=== PATIENT | male | born 1945 | race Caucasian/White ===

== ENCOUNTER → 2017-02-07 | Outpatient (CLI) | payer MEDICARE ==
[2017-02-07 08:12] LABS: Basophils # (A) 0.1 k/uL (0-0.2); Basophils % (A) 1 %; CHCM 34.9; Eosinophils # (A) 0.4 k/uL (0-0.7); Eosinophils % (A) 6 %; HCT 47.6 % (39.0-53.0); HDW 2.73; HGB 16.3 gm/dL (13.0-17.5); Luc # (Auto) 0.18; Luc % (Auto) 3; Lymphocytes # (A) 2.1 k/uL (1.0-4.8); Lymphocytes % (A) 30 %; MCH 34.4 pg (25.0-35.0); MCHC 34.2 g/dL (31.0-37.0); MCV 100.6 fL (80.0-100.0); Mean Platelet Volume 7.8; Monocytes # (A) 0.4 k/uL (0-1.0); Monocytes % (A) 5 %; Neutrophils # (A) 3.8 k/uL (1.3-7.7); Neutrophils % (A) 55 %; RBC 4.73 m/uL (4.30-5.90); RDW 13.4 % (11.5-15.5); WBC 6.9 k/uL (3.8-10.6); WBC (Perox) 7.09
[2017-02-07 11:09] LABS: ALT 39 U/L (21-72); AST 29 U/L (17-59); Alkaline Phosphatase 77 U/L (38-126); Anion Gap 12 mmol/L; Blood Urea Nitrogen 17 mg/dL (9-20); Calcium 9.7 mg/dL (8.4-10.2); Carbon Dioxide 24 mmol/L (22-30); Chloride 109 mmol/L (98-107); Cholesterol 161 mg/dL (<200); Glucose 115 mg/dL (74-99); HDL Cholesterol 53 mg/dL (40-60); Non-African American GFR(MDRD) >60 (>60 ml/min/1.73 sqM); Potassium 4.4 mmol/L (3.5-5.1); Sodium 145 mmol/L (137-145); Total Bilirubin 0.9 mg/dL (0.2-1.3); Total Protein 7.1 g/dL (6.3-8.2); Triglycerides 104 mg/dL (<150)
[2017-02-07 13:28] LABS: Hemoglobin A1C 5.9 % (4.2-6.1)
== END | disposition home or self-care (01) ==
LOC: LABWHC1 07:30
PROVIDERS: ATTEND Internal Medicine Geriatric Medicine
DX: E78.00 Pure hypercholesterolemia, unspecified (principal); I10 Essential (primary) hypertension; N40.0 Benign prostatic hyperplasia without lower urinary tract symptoms; R79.89 Other specified abnormal findings of blood chemistry
CPT/HCPCS: 36415; 80053; 80061; 83036; 84153; 84439; 84443; 85025

== ENCOUNTER → 2017-05-14 | Outpatient (CLI) | payer MEDICARE ==
[2017-05-14 07:17] LABS: EKG EKG PERFORMED
[2017-05-14 07:39] LABS: Appearance,Urine Clear (Clear); Bilirubin,Urine Negative (Negative); Glucose,Urine (UA) Negative (Negative); Ketones,Urine Negative (Negative); Leukocyte Esterase,Urine Negative (Negative); Nitrite,Urine Negative (Negative); PH, Urine 6.5 (5.0-8.0); Protein,Urine Negative (Negative); Specific Gravity,Urine 1.015 (1.001-1.035); UA Billing (MACRO vs. MICRO) CHEM; Urobilinogen,Urine <2.0 mg/dL (<2.0)
[2017-05-14 07:56] LABS: CH 34.3; CHCM 34.4; HCT 48.2 % (39.0-53.0); HDW 2.78; MCH 33.3 pg (25.0-35.0); MCHC 33.3 g/dL (31.0-37.0); MCV 100.2 fL (80.0-100.0); Mean Platelet Volume 8.2; RBC 4.81 m/uL (4.30-5.90); RDW 13.7 % (11.5-15.5); WBC 7.9 k/uL (3.8-10.6)
[2017-05-14 07:58] LABS: INR 1.1 (<1.2); Partial Thromboplastin Time 24.7 sec (22.0-30.0); Prothrombin Time 11.1 sec (9.0-12.0)
[2017-05-14 08:10] LABS: ALT 34 U/L (21-72); AST 25 U/L (17-59); Alkaline Phosphatase 65 U/L (38-126); Anion Gap 9 mmol/L; Blood Urea Nitrogen 20 mg/dL (9-20); Calcium 9.7 mg/dL (8.4-10.2); Carbon Dioxide 28 mmol/L (22-30); Chloride 105 mmol/L (98-107); Glucose 123 mg/dL (74-99); Non-African American GFR(MDRD) >60 (>60 ml/min/1.73 sqM); Potassium 5.2 mmol/L (3.5-5.1); Sodium 142 mmol/L (137-145); Total Bilirubin 0.9 mg/dL (0.2-1.3); Total Protein 7.5 g/dL (6.3-8.2)
== END | disposition home or self-care (01) ==
LOC: LABPAT 07:04
PROVIDERS: ATTEND Orthopaedic Surgery
DX: Z01.810 Encounter for preprocedural cardiovascular examination (principal); Z01.812 Encounter for preprocedural laboratory examination
CPT/HCPCS: 80053; 81003; 85027; 85610; 85730; 87070; 93005

== ENCOUNTER 2017-05-28 08:00 | Inpatient (IN) | payer MEDICARE ==
[2017-05-16 10:10] VITALS: BMI 36.2
[~2017-05-28 08:00] MED LIST: ACETAMINOPHEN TAB 500 MG TAB PO ONE; DEXAMETHASONE SOD PHOSPHATE 10 MG/ML 1 ML VIAL IV ONE; HYDROmorphone 0.5 MG/0.5 ML SYRINGE IVP PRN; MELOXICAM 7.5 MG TAB PO ONE; MIDAZOLAM 2 MG/2 ML VIAL IV PRN; ONDANSETRON 4 MG/2 ML VIAL IVP ONE; TRANEXAMIC ACID 1,000 MG in SODIUM CHLORIDE 0.9% 100 ML IVPB ONE; ceFAZolin 2 GM in SODIUM CHLORIDE 0.9% 100 ML IVPB ONE
[2017-05-28] MEDS ORDERED: LACTATED RINGERS 1,000 ML IV ONE ×2 (14:57→16:59)
--- NOTE | 2017-05-28 15:29 | P.ONQ ---
Anesthesiology Proc Note - PNB - Peripheral Nerve Block Performed Left Adductor Canal Infusion Time Out Performed: Yes Procedure Start Time: 15:11 Procedure Stop Time: 15:22 Indication: Acute Post-Operative Pain, Requested by physician Sedation Type: Sedate with meaningful contact maintained Preparation: Sterile Dressing Position: Supine Catheter: Indwelling Needle Types: On-Q Needle Size: 100mm (4") Needle Gauge: 21 Technique: Ultrasound Injectate: 0.5% Ropivacaine (see comment for volume) (ropi.5% 9cc) Blood Aspirated: No Pain Paresthesia on Injection Noted: No Resistance on Injection: Normal Events: Uneventful and Well Tolerated
[2017-05-28] MEDS ORDERED: METOPROLOL TARTRATE 5 MG/5 ML VIAL IVP ONE (15:30)
[2017-05-28] MEDS ORDERED: TRANEXAMIC ACID 1,000 MG/10 ML VIAL ONE (15:30)
[2017-05-28] MEDS ORDERED: ceFAZolin 3,000 MG in SODIUM CHLORIDE 0.9% IRRIGATIO 3,000 ML IRRIGATION ONE (15:30)
[2017-05-28] MEDS ORDERED: MIDAZOLAM 2 MG/2 ML VIAL ONE (15:30)
[2017-05-28] MEDS ORDERED: SODIUM CHLORIDE 0.9% 100 ML BAG ONE (15:30)
[2017-05-28] MEDS ORDERED: fentaNYL (PF) 50 MCG/ML 2 ML AMP ONE (15:30)
[2017-05-28] MEDS ORDERED: PROPOFOL 10 MG/ML 20 ML VIAL IV ONE (15:30)
[2017-05-28] MEDS: ROPIVACAINE 246.25 MG, EPINEPHrine 0.5 MG, KETOROLAC 30 MG, cloNIDine HCL/PF 80 MCG, WA... MISCELLANE ONE ×10 (16:05→16:35)
--- NOTE | 2017-05-28 16:59 | P.OP ---
Date of Procedure: 05/28/17 Preoperative Diagnosis: Severe osteoarthritis left knee Postoperative Diagnosis: Severe osteoarthritis left knee Procedure(s) Performed: Left total knee arthroplasty Implants: Corona [employer] Nephew Oxinium femoral component size 7, left Corona [employer] Nephew Mayra II left nonporous tibial baseplate size 6 Corona [employer] Nephew size 9 mm Legion XLPE high flexion articular insert, size 5-6 Corona [employer]hew Mayra II resurfacing patellar component, 35 mm All components were cemented using Ammon bone cement.. The articulation is ceramic on polyethylene. Anesthesia: spinal Surgeon: Samuel Hough [employer] Box Shop Supervisor #1: Tamanna Bloom Estimated Blood Loss (ml): 50 Pathology: other (Bone and cartilage) Condition: stable Disposition: PACU Indications for Procedure: After failure of conservative treatment we discussed the surgical and nonsurgical treatment options at length. Patient wishes to proceed with a total knee arthroplasty. Complications specific to this procedure were discussed at length, including but not limited to infection, bleeding, stiffness , and nerve injury. Patient is aware of all these complications and informed consent was obtained Operative Findings: The operative findings are consistent with severe osteoarthritis of the left knee Description of Procedure: Patient was seen in the preoperative area consent was reviewed and operative site was marked with a skin marker. An adductor canal pain catheter was placed by anesthesia in the preoperative area. Patient was then brought to the operating room and given preoperative antibiotics intravenously. A spinal anesthetic was administered by the anesthesia department. A tourniquet was placed on the upper thigh and the lower extremity was prepped and draped in usual sterile fashion. A gram of transexamic acid was given. A universal timeout was then performed which confirmed the patient's name, surgical site, ALLERGIES, and consent. The lower extremity was then exsanguinated and tourniquet was inflated to 250 mmHg. A standard and anterior midline approach to the knee was performed. The skin and subcutaneous tissue was dissected down to the patellar tendon. A medial parapatellar arthrotomy was then performed. The knee was then extended, the patellar was everted, and the knee was again flexed. Anterior horns of both menisci were excised, and a release was performed to the posterior medial aspect of the knee. On gross visual inspection, there was complete loss of articular cartilage in the medial and patellofemoral joint spaces. There was also significant cartilage damage in the lateral compartment. There were multiple periarticular osteophytes which were then removed with a Ronguer. The femoral canal was then opened with the appropriate drill, and the intramedullary femoral cutting guide was then placed and set for 4 of valgus. The distal femoral cutting block was then pinned in place, and the distal femur was then cut. The cutting block was then removed and the cut was checked for flatness. Next, the sizing guide was then placed and set for 3 external rotation based off of the epicondylar axis and Whitesides line. After the femur was sized, the appropriate 4-in-1 cutting block was then pinned in place. The anterior condyles were cut without notching. The posterior and chamfer cuts were performed while protecting the collateral ligaments. The cutting block was then removed, and the femoral canal was plugged with autologous bone. Attention was then directed to the tibia. The remaining ACL was removed with a Ronguer, and the tibia was then gently subluxed forward with a large bent knee retractor. Any remaining menisci was excised. The posterior lateral corner was cauterized in order to cauterize the lateral geniculate artery. The extra medullary tibial cutting guide was then placed, set for the appropriate rotation , slope, and depth of resection. The proximal tibia cutting guide was then pinned in place. Proximal tibia was then cut and sized. Next trials were then placed with the appropriate-sized insert. The knee was able to fully extend and flex to 130 and was stable throughout all range of motion. The knee was then extended, patella everted. Patella was then measured, and then using an osteotomy guide, the patella was cut at the appropriate level. The patella was then measured and drilled and the patella trial was then placed. The knee was then taken through range of motion with the patella trial and the patella tracked normally. The knee was then extended patella trial was then removed and the patella was everted. Knee was then flexed and lug holes were drilled through the femoral trial and the femoral trial was then removed. The tibial was then exposed, and the tibial broach guide was then pinned in place after it was set for the appropriate rotation to allow for the most coverage without overhang. The tibia was then reamed and broached. The cut surfaces of bone were then irrigated with pulsatile lavage. The posterior structures were injected with the ropivacaine solution. The knee was also irrigated with Irrisept solution. The components were then opened, the cement was mixed, and the components were then cemented in place. The cement was allowed to harden with the knee in full extension. While the cement was hardening, the remaining soft tissues were then injected with a ropivacaine solution, which consisted of 246.25 mg of ropivacaine, 0.5 mg of epinephrine, 30 mg of Toradol, 80 g of clonidine, and 48.45 mL of sterile water, for a total of 100 mL of fluid injected. After the cemented hardened. The tourniquet was released, and hemostasis was obtained. A second gram of transexamic acid was given. The knee was again irrigated. The knee was again taken through range of motion and found to be stable throughout all range of motion of 0-130 , and the patella tracked normally. The fascia was then closed with #2 strata fix suture. The subcutaneous tissue was closed with 3-0 Vicryl and 3-0 strata fix. Dermabond tape was used for the skin and placed with the knee in flexion. The patient was placed in a sterile dressing. Patient was then transferred to recovery room in stable condition. The volunteer services assistant DAVIS Mitchell was required due the complexity surgery and the need for a skilled surgical scrub tech. She assisted in positioning, draping, retraction, and closure of the wound.
[2017-05-28] MEDS ORDERED: MAGNESIUM HYDROXIDE 2,400 MG/10 ML CUP PO PRN (17:25)
[2017-05-28] MEDS ORDERED: BISACODYL 10 MG SUPP RECTAL PRN (17:25)
[2017-05-28] MEDS ORDERED: NA PHOS,M-B/NA PHOS,DI-BA 133 ML ENEMA RECTAL PRN (17:25)
[2017-05-28] MEDS ORDERED: HYDROmorphone 0.5 MG/0.5 ML SYRINGE IVP PRN ×3 (17:25)
[2017-05-28] MEDS ORDERED: NALOXONE 0.4 MG/ML 1 ML VIAL IV PRN (17:25)
[2017-05-28] MEDS ORDERED: DIAZEPAM 5 MG TAB PO PRN ×2 (17:25)
[2017-05-28] MEDS ORDERED: ROPIVACAINE 1,100 MG, SODIUM CHLORIDE 0.9% 330 ML MISCELLANE PRN ×2 (17:34)
--- NOTE | 2017-05-28 17:55 | XR ---
EXAMINATION TYPE: XR knee limited LT DATE OF EXAM: 05/28/2017 CLINICAL HISTORY: Left knee pain and arthritis status post total knee replacement. TECHNIQUE: Portable AP and crosstable lateral views of the left knee are obtained immediately postop eratively. COMPARISON: None FINDINGS: Metallic hardware from total left knee arthroplasty is seen and appears satisfactory in al ignment and position. There is evidence of recent surgery with diffuse subcutaneous gas and soft tis dave swelling noted. IMPRESSION: METALLIC HARDWARE FROM TOTAL LEFT KNEE ARTHROPLASTY IS SATISFACTORY IN ALIGNMENT.
[2017-05-28] MEDS: HYDROcodone/APAP 5-325MG 1 EACH TAB PO PRN (20:27)
[2017-05-28] MEDS: LACTATED RINGERS 1,000 ML IV SCH (21:43)
[2017-05-28] MEDS: ASPIRIN 325 MG TAB PO SCH (21:44)
[2017-05-28] MEDS: SENNOSIDES-DOCUSATE SODIUM 1 EACH TAB PO SCH (21:44)
[2017-05-28] MEDS: SODIUM CHLORIDE 0.9% 1,000 ML IV SCH (21:48)
[2017-05-28] MEDS: ceFAZolin 2 GM in SODIUM CHLORIDE 0.9% 100 ML IVPB SCH (23:59)
[2017-05-29] MEDS: HYDROcodone/APAP 5-325MG 1 EACH TAB PO PRN ×4 (02:34→23:26)
[2017-05-29] MEDS: LACTATED RINGERS 1,000 ML IV SCH (05:21)
[2017-05-29 06:59] LABS: Basophils % (A) 0 %; CH 34.3; CHCM 33.8; Eosinophils % (A) 0 %; HCT 41.9 % (39.0-53.0); HDW 2.69; HGB 13.6 gm/dL (13.0-17.5); Luc # (Auto) 0.05; Luc % (Auto) 0; Lymphocytes # (A) 1.2 k/uL (1.0-4.8); Lymphocytes % (A) 8 %; MCH 33.1 pg (25.0-35.0); MCHC 32.5 g/dL (31.0-37.0); MCV 101.8 fL (80.0-100.0); Macrocytosis Slight; Mean Platelet Volume 8.2; Monocytes # (A) 0.6 k/uL (0-1.0); Monocytes % (A) 4 %; Neutrophils % (A) 87 %; RBC 4.11 m/uL (4.30-5.90); RDW 13.4 % (11.5-15.5); WBC 14.9 k/uL (3.8-10.6); WBC (Perox) 14.44
--- NOTE | 2017-05-29 07:04 | P.PN ---
Progress Note - Text . Postoperative day # 1 status post total knee arthroplasty, adductor canal catheter placed for postoperative analgesia, currently at ropivacaine 0.2% 8 mL per hour and continuous infusion, catheter site local. There is no erythema , and there is no tenderness, visual analogue scale is 3-4/10, patient using oral pain medication for breakthrough pain. Assessment and plan= Acute postoperative pain, adductor canal catheter for pain control, pain is well controlled we'll continue the same management.
[2017-05-29] MEDS: PANTOPRAZOLE 40 MG TABLET PO SCH (07:40)
[2017-05-29] MEDS ORDERED: MELOXICAM 7.5 MG TAB PO SCH (09:00)
[2017-05-29] MEDS ORDERED: DILTIAZEM CD 300 MG CAP.ER.24H PO SCH (09:00)
--- NOTE | 2017-05-29 09:00 | P.PN ---
Subjective Progress Note Date: 05/29/17 Principal diagnosis: Status post left total knee arthroplasty This is a 72-year-old male who is status post left total knee arthroplasty. This is postoperative day #1. She was seen and evaluated at bedside with Dr. Samuel Hough. Patient states he has not been up and walking with physical therapy yet. Patient states his pain is under control. Patient denies any dizziness, numbness, weakness or tingling. Objective - Vital Signs Vital signs: Vital Signs Temp 97.5 F L 05/29/17 07:13 Pulse 79 05/29/17 07:13 Resp 15 05/29/17 07:13 BP 131/79 05/29/17 07:13 Pulse Ox 95 05/29/17 07:13 Intake & Output 05/28/17 05/29/17 05/29/17 18:59 06:59 18:59 Intake Total 1551 780 Output Total 50 540 Balance 1501 240 Weight 117.934 kg Intake: IV 1551 780 Sodium Chloride 0.9% 1, 780 000 ml @ 65 mls/hr IV . [id number] [facility] Rx#:[id number] Output: Urine 540 Estimated Blood Loss 50 - Exam Vital signs are stable. Patient is in no acute distress and is alert and oriented 3. Calf is soft and nontender. Dressing is clean, dry, and intact. Neurovascular status intact. Patient has full foot and ankle motion. - Labs CBC & Chem 7: 05/29/17 06:25 05/28/17 14:50 Labs: Abnormal Lab Results - Last 24 Hours (Table) 05/29/17 Range/Units 06:25 WBC 14.9 H (3.8-10.6) k/uL RBC 4.11 L (4.30-5.90) m/uL MCV 101.8 H (80.0-100.0) fL Neutrophils # 13.0 H (1.3-7.7) k/uL Assessment and Plan (1) Primary osteoarthritis of left knee Status: Acute (2) S/P total knee arthroplasty Status: Acute Plan: #1 Continue with routine postoperative care. #2 Anticoagulation with aspirin. #3 Physical therapy and CPM today. #4 Appreciate input from medicine. #5 Anticipate discharge home with home care likely tomorrow.
[2017-05-29] MEDS: ATENOLOL 50 MG TAB PO SCH (09:20)
[2017-05-29] MEDS: ASPIRIN 325 MG TAB PO SCH ×2 (09:21→21:13)
--- NOTE | 2017-05-29 09:56 | ECHOF ---
Referral Reason:Atrial fibrillation MEASUREMENTS -------- HEIGHT: 182.9 cm WEIGHT: 117.9 kg BP: 116/72 RVIDd: 3.4 cm (< 3.3) IVSd: 1.5 cm (0.6 - 1.1) LVIDd: 5.0 cm (3.9 - 5.3) LVPWd: 1.7 cm (0.6 - 1.1) IVSs: 2.1 cm LVIDs: 2.1 cm LVPWs: 2.4 cm Ao Diam: 4.1 cm (2.0 - 3.7) AV Cusp: 1.4 cm (1.5 - 2.6) LA Diam: 4.4 cm (2.7 - 3.8) MV EXCURSION: 22.646 mm (> 18.000) MV EF SLOPE: 130 mm/s (70 - 150) EPSS: 0.6 cm RAP: 5.00 mmHg RVSP: 19.40 mmHg FINDINGS -------- Atrial fibrillation. This was a technically good study. The left ventricular size is normal. There is moderate concentric left ventricular hypertrophy. Overall left ventricular systolic function is normal with, an EF between 55 - 60 %. The right ventricle is mildly enlarged. The left atrium is normal in size. The right atrium is normal in size. Aortic valve is trileaflet and is mildly thickened. There is mild aortic valve sclerosis. The mitral valve leaflets are mildly thickened. There is trace mitral regurgitation. Mild tricuspid regurgitation present. The right ventricular systolic pressure, as measured by Doppler, is 19.40mmHg. Pulmonic valve appears structurally normal. The aortic root size is normal. The pericardium is normal. CONCLUSIONS -------- 1. Atrial fibrillation. 2. There is mild aortic valve sclerosis. 3. The mitral valve leaflets are mildly thickened. 4. There is trace mitral regurgitation. 5. Mild tricuspid regurgitation present. 6. The right ventricular systolic pressure, as measured by Doppler, is 19.40mmHg. 7. Pulmonic valve appears structurally normal. 8. The aortic root size is normal. 9. The pericardium is normal. 10. This was a technically good study. 11. The left ventricular size is normal. 12. There is moderate concentric left ventricular hypertrophy. 13. Overall left ventricular systolic function is normal with, an EF between 55 - 60 %. 14. The right ventricle is mildly enlarged. 15. The left atrium is normal in size. 16. The right atrium is normal in size. 17. Aortic valve is trileaflet and is mildly thickened. BALLAST INSPECTOR: Cesilia Perez RDCS
[2017-05-29] MEDS: ceFAZolin 2 GM in SODIUM CHLORIDE 0.9% 100 ML IVPB SCH (10:30)
[2017-05-29] MEDS: APIXABAN 5 MG TAB PO SCH ×2 (10:47→21:13)
[2017-05-29] MEDS: LORATADINE 10 MG TAB PO SCH (10:47)
[2017-05-29] MEDS ORDERED: MULTIVITAMINS, THERA 1 EACH TAB PO SCH (12:00)
--- NOTE | 2017-05-29 13:00 | P.CRDCN ---
History of Present Illness Consult date: 05/29/17 History of present illness: This is a 72-year-old male past medical history significant for hypertension. Patient states he follows regularly with his primary care doctor Dr. Rice. He is prescribed atenolol 100 mg daily and Cardizem 300 mg daily. It is his understanding these medications are prescribed for hypertension. We are asked to see the patient in consultation to evaluate new onset atrial fibrillation. The patient underwent left total knee arthroplasty yesterday. EKG reveals atrial fibrillation with controlled ventricular response. He denies chest pain, shortness of breath, dizziness, palpitations, nausea, vomiting or diaphoresis. He denies history of CAD, arrhythmia or [place]. Hemoglobin 13.6, potassium 4.6. BUN/Cr from 05/14/2017 20/0.99. Patient states he is a daily drinker but denies falls. He states he does not drink to excess but he does drink 4-5 beers per day. Review of Systems Extensive review of systems performed, negative except mentioned in HPI. Past Medical History Past Medical History: Cancer, GERD/Reflux, Hypertension, Osteoarthritis (OA) Additional Past Medical History / Comment(s): hemorrhoids, hx skin cancer History of Any Multi-Drug Resistant Organisms: None Reported Past Surgical History: Appendectomy, Joint Replacement, Tonsillectomy Additional Past Surgical History / Comment(s): gus hip replacements, Rt knee replacement, gus capral tunnel Past Anesthesia/Blood Transfusion Reactions: No Reported Reaction Additional Past Anesthesia/Blood Transfusion Reaction / Comment(s): never had a blood transfusion Past Psychological History: No Psychological Hx Reported Smoking Status: Former smoker Past Alcohol Use History: Daily Additional Past Alcohol Use History / Comment(s): quit smoking 1988, smoked for 20 yrs , 1 PPD Past Drug Use History: None Reported - Past Family History Brother(s) Family Medical History: Cancer Additional Family Medical History / Comment(s): pancreatic cancer Medications and Allergies Home Medications Medication Instructions Recorded Confirmed Type Aspirin 81 mg PO DAILY 01/20/14 05/28/17 History Atenolol 100 mg PO DAILY 01/20/14 05/28/17 History Diltiazem Cd [Cardizem CD] 300 mg PO DAILY 01/20/14 05/28/17 History Loratadine [Claritin] 10 mg PO DAILY 01/20/14 05/28/17 History Omeprazole [PriLOSEC] 20 mg PO AC-BRKFST 01/20/14 05/28/17 History HYDROcodone/APAP 5-325MG [Madison 1 tab PO Q6HR PRN #30 tab 09/16/15 05/28/17 Rx 5-325] Ibuprofen [Motrin] 800 mg PO TID PRN 05/16/17 05/28/17 History Multivitamins, Thera [Multivitamin 1 tab PO DAILY 05/16/17 05/28/17 History (formulary)] Apixaban [Eliquis] 5 mg PO BID #60 tab 05/29/17 Rx Allergies Allergy/AdvReac Type Severity Reaction Status Date / Time No Known Allergies Allergy Verified 05/16/17 09:58 Physical Exam Vitals: Vital Signs Temp Pulse Pulse Pulse Resp BP BP 05/29/17 07:13 97.5 F L 79 15 05/29/17 04:37 97.6 F 73 16 05/29/17 04:00 16 05/29/17 00:23 98.1 F 73 16 128/71 05/29/17 00:00 16 05/28/17 20:50 94 123/76 05/28/17 20:35 106 H 119/72 05/28/17 20:20 88 131/74 05/28/17 20:05 92 129/77 05/28/17 20:00 16 05/28/17 19:50 97 127/80 05/28/17 19:35 88 117/77 05/28/17 19:20 93 113/68 05/28/17 19:05 93 123/61 05/28/17 18:50 97.9 F 92 16 118/73 05/28/17 18:34 86 16 125/73 05/28/17 18:20 85 16 119/76 05/28/17 18:05 100 16 120/78 05/28/17 17:50 86 16 121/64 05/28/17 17:38 97 16 123/66 05/28/17 17:23 97.4 F L 91 16 122/71 05/28/17 15:25 80 16 05/28/17 14:35 97.1 F L 82 16 146/84 BP Pulse Ox 05/29/17 07:13 131/79 95 05/29/17 04:37 116/72 95 05/29/17 04:00 05/29/17 00:23 95 05/29/17 00:00 05/28/17 20:50 05/28/17 20:35 05/28/17 20:20 94 L 05/28/17 20:05 94 L 05/28/17 20:00 05/28/17 19:50 94 L 05/28/17 19:35 95 05/28/17 19:20 94 L 05/28/17 19:05 94 L 05/28/17 18:50 94 L 05/28/17 18:34 96 05/28/17 18:20 94 L 05/28/17 18:05 94 L 05/28/17 17:50 94 L 05/28/17 17:38 94 L 05/28/17 17:23 96 05/28/17 15:25 97 05/28/17 14:35 97 Intake and Output 05/28/17 05/29/17 05/29/17 22:59 06:59 14:59 Intake Total 1611 520 Output Total 270 320 320 Balance 1341 200 -320 Intake: IV 1611 520 Sodium Chloride 0.9% 1, 260 520 000 ml @ 65 mls/hr IV . [id number] [facility] Rx#:[id number] Output: Urine 220 320 320 Estimated Blood Loss 50 Other: Weight 117.934 kg 117.934 kg Patient Weight 05/30/17 06:59 Weight 117.934 kg GENERAL: Well-appearing, well-nourished and in no acute distress. NECK: Supple without JVD or thyromegaly. LUNGS: Breath sounds clear to auscultation bilaterally. Respiration equal and unlabored. No wheezes, rales or rhonchi. HEART: Irregular rate and rhythm without murmurs, rubs or gallops. S1 and S2 heard. EXTREMITIES: Normal range of motion, no edema. No clubbing or cyanosis. Peripheral pulses intact and strong. Left knee wrapped. Results 05/29/17 06:25 05/28/17 14:50 CBC 05/29/17 Range/Units 06:25 WBC 14.9 H (3.8-10.6) k/uL RBC 4.11 L (4.30-5.90) m/uL Hgb 13.6 (13.0-17.5) gm/dL Hct 41.9 (39.0-53.0) % Plt Count 197 (150-450) k/uL Comprehensive Metabolic Panel 05/28/17 Range/Units 14:50 Potassium 4.6 (3.5-5.1) mmol/L Current Medications Generic Name Dose Route Start Last Admin Trade Name Freq PRN Reason Stop Dose Admin Hydrocodone Bitart/Acetaminophen 1 each 05/28/17 17:25 05/29/17 07:40 Madison 5-325 PO 1 each Q6HR PRN Administration Pain Scale 1 to 5 Hydrocodone Bitart/Acetaminophen 2 each 05/28/17 17:25 05/29/17 02:34 Madison 5-325 PO 2 each Q6HR PRN Administration Pain Scale 6 to 10 Apixaban 5 mg 05/29/17 10:15 05/29/17 10:47 Eliquis PO 5 mg BID [facility] Administration Aspirin 325 mg 05/28/17 21:00 05/29/17 09:21 Aspirin PO 325 mg BID [facility] Administration Atenolol 100 mg 05/29/17 09:00 05/29/17 09:20 Tenormin PO 100 mg DAILY [facility] Administration Bisacodyl 10 mg 05/28/17 17:25 Dulcolax RECTAL DAILY PRN Constipation Ropivacaine 1,100 mg/ Sodium 0 mg 05/28/17 17:34 05/28/17 18:10 Chloride 330 ml MISCELLANE 1,100 mg Q2H PRN Administration Breakthrough Pain Diazepam 2.5 mg 05/28/17 17:25 Valium PO Q8HR PRN Mild Spasms Diazepam 5 mg 05/28/17 17:25 Valium PO Q8HR PRN Moderate to Severe Spasms Diltiazem HCl 300 mg 05/30/17 09:00 Cardizem Cd PO DAILY [facility] Hydromorphone HCl 0.125 mg 05/28/17 17:25 Dilaudid Syringe IVP Q3HR PRN Pain Scale 1 to 3 Hydromorphone HCl 0.25 mg 05/28/17 17:25 Dilaudid Syringe IVP Q3HR PRN Pain Scale 4 to 6 Hydromorphone HCl 0.5 mg 05/28/17 17:25 Dilaudid Syringe IVP Q3HR PRN Pain Scale 7 to 10 Hydroxyzine Pamoate 25 mg 05/28/17 17:25 Vistaril PO Q4HR PRN Nausea, Anxiety, Pain Control Lactated Ringer's 1,000 mls @ 20 mls/hr 05/28/17 05:26 05/29/17 05:21 Lactated Ringers IV Not Given .Q24H [facility] Sodium Chloride 1,000 mls @ 65 mls/hr 05/28/17 17:30 05/28/17 21:48 Saline 0.9% IV 65 mls/hr .[id number] [facility] Administration Loratadine 10 mg 05/29/17 09:00 05/29/17 10:47 Claritin PO 10 mg DAILY [facility] Administration Magnesium Hydroxide 2,400 mg 05/28/17 17:25 Milk Of Magnesia PO DAILY PRN Constipation Multivitamins 1 each 05/29/17 12:00 Theragran PO DAILY@1200 [facility] Naloxone HCl 0.2 mg 05/28/17 17:25 Narcan IV Q2M PRN Opioid Reversal Pantoprazole Sodium 40 mg 05/29/17 07:30 05/29/17 07:40 Protonix PO 40 mg AC-BRKFST [facility] Administration Senna/Docusate Sodium 2 each 05/28/17 21:00 05/28/17 21:44 Senokot-S PO 2 each HS [facility] Administration Sodium Biphosphate/Sodium Phosphate 133 ml 05/28/17 17:25 Fleet Adult RECTAL DAILY PRN Constipation Intake and Output 05/28/17 05/29/17 05/29/17 22:59 06:59 14:59 Intake Total 1611 520 Output Total 270 320 320 Balance 1341 200 -320 Intake: IV 1611 520 Sodium Chloride 0.9% 1, 260 520 000 ml @ 65 mls/hr IV . [id number] [facility] Rx#:[id number] Output: Urine 220 320 320 Estimated Blood Loss 50 Other: Weight 117.934 kg 117.934 kg Patient Weight 05/30/17 06:59 Weight 117.934 kg 05/29/17 06:25 05/28/17 14:50 Assessment and Plan Plan: ASSESSMENT 1. New onset atrial fibrillation with controlled ventricular response 2. Essential hypertension 3. Postoperative day #1 left total knee arthroplasty PLAN CHADS-VASC score 2 with creatinine clearance 114 mL/m. We will initiate Eliquis 5 mg twice a day. Continue atenolol and cardizem as previously ordered for rate control. Coverage has been verified and is reasonable for him to afford. He should follow up with Dr. Ashford in 2-4 weeks. Risks vs benefits of intermediate anticoagulation has been discussed with the patient and he is agreeable to begin therapy. He has been advised to decrease alcohol intake and avoid NSAIDS. Nurse Practitioner note has been reviewed, I agree with a documented findings and plan of care. Patient was seen and examined.
[2017-05-29] MEDS ORDERED: RIVAROXABAN 10 MG TAB PO SCH (17:30)
[2017-05-29] MEDS: SODIUM CHLORIDE 0.9% 1,000 ML IV SCH (21:11)
[2017-05-29] MEDS: SENNOSIDES-DOCUSATE SODIUM 1 EACH TAB PO SCH (21:13)
[2017-05-29] MEDS: hydrOXYzine PAMOATE 25 MG CAP PO PRN (23:26)
[2017-05-30] MEDS: SODIUM CHLORIDE 0.9% 1,000 ML IV SCH (00:39)
[2017-05-30 00:52] VITALS: RESP 16
[2017-05-30] MEDS: LACTATED RINGERS 1,000 ML IV SCH (04:28)
[2017-05-30] MEDS: HYDROcodone/APAP 5-325MG 1 EACH TAB PO PRN (05:42)
[2017-05-30] MEDS: hydrOXYzine PAMOATE 25 MG CAP PO PRN (05:42)
[2017-05-30 07:37] VITALS: BP 127/82; PULSE 87; TEMP 97.4
[2017-05-30] MEDS: ATENOLOL 50 MG TAB PO SCH (08:12)
[2017-05-30] MEDS: PANTOPRAZOLE 40 MG TABLET PO SCH (08:12)
[2017-05-30] MEDS: APIXABAN 5 MG TAB PO SCH (08:12)
[2017-05-30] MEDS: ASPIRIN 325 MG TAB PO SCH (08:13)
[2017-05-30] MEDS: LORATADINE 10 MG TAB PO SCH (08:13)
[2017-05-30] MEDS ORDERED: DILTIAZEM CD 300 MG CAP.ER.24H PO SCH (09:00)
--- NOTE | 2017-05-30 09:07 | P.DS ---
Providers Date of admission: 05/28/17 13:03 Expected date of discharge: 05/30/17 Attending physician: Samuel Hough Consults: 05/28/17 17:25 Consult Physician Routine Consulting Provider: Alejandro Lee Consult Reason/Comments: medical management Do you want consulting provider notified?: Yes Primary care physician: Chris Rice - Discharge Diagnosis(es) (1) Primary osteoarthritis of left knee Current Visit: Yes Status: Acute (2) S/P total knee arthroplasty Current Visit: Yes Status: Acute Hospital Course: This is a 72-year-old male with known history of degenerative arthritis of the left knee. The patient presents for evaluation. After discussion and consideration patient elects to proceed with total knee arthroplasty. The patient is seen preoperatively by Dr. Hough and cleared for surgery. Patient is admitted to [facility] on 05/28/2017 for total knee arthroplasty. The procedures performed without complication or sequelae. The patient is doing well postoperatively. Labs and vital signs are stable on day of discharge. During patient's hospital stay he developed new onset atrial fibrillation. Cardiology was consulted and patient was started on Eliquis. Patient will follow-up with cardiology as an outpatient. On day of discharge patient's knee incision is healing well. There is minimal erythema. There is no drainage noted at this time. There is minimal soft tissue swelling to the knee. Patient has full foot and ankle motion without difficulty or pain. Neurovascular status to the left lower extremity is intact. Patient is discharged home in good condition. Please see med rec for accurate list of home medications. Plan - Discharge Summary New Discharge Prescriptions: New Apixaban [Eliquis] 5 mg PO BID #60 tab HYDROcodone/APAP 5-325MG [[place] 5-325] 1 - 2 tab PO Q4-6H PRN #90 tab PRN Reason: Pain Sennosides-Docusate Sodium [Senokot-S] 1 tab PO BID #60 tablet No Action Omeprazole [PriLOSEC] 20 mg PO AC-BRKFST Loratadine [Claritin] 10 mg PO DAILY Diltiazem Cd [Cardizem CD] 300 mg PO DAILY Atenolol 100 mg PO DAILY Aspirin 81 mg PO DAILY HYDROcodone/APAP 5-325MG [[place] 5-325] 1 tab PO Q6HR PRN #30 tab PRN Reason: Pain Multivitamins, Thera [Multivitamin (formulary)] 1 tab PO DAILY Ibuprofen [Motrin] 800 mg PO TID PRN PRN Reason: Pain Discharge Medication List Aspirin 81 mg PO DAILY 01/20/14 [History] Atenolol 100 mg PO DAILY 01/20/14 [History] Diltiazem Cd [Cardizem CD] 300 mg PO DAILY 01/20/14 [History] Loratadine [Claritin] 10 mg PO DAILY 01/20/14 [History] Omeprazole [PriLOSEC] 20 mg PO AC-BRKFST 01/20/14 [History] HYDROcodone/APAP 5-325MG [[place] 5-325] 1 tab PO Q6HR PRN #30 tab 09/16/15 [Rx] Ibuprofen [Motrin] 800 mg PO TID PRN 05/16/17 [History] Multivitamins, Thera [Multivitamin (formulary)] 1 tab PO DAILY 05/16/17 [History ] Apixaban [Eliquis] 5 mg PO BID #60 tab 05/29/17 [Rx] HYDROcodone/APAP 5-325MG [[place] 5-325] 1 - 2 tab PO Q4-6H PRN #90 tab 05/30/17 [ Rx] Sennosides-Docusate Sodium [Senokot-S] 1 tab PO BID #60 tablet 05/30/17 [Rx] Follow up Appointment(s)/Referral(s): José Manuel Ashford MD [STAFF PHYSICIAN] - 06/20/17 4:30 pm [facility] Visiting Nurse, [NON-STAFF] - Samuel Hough DO [Doctor of Osteopathic Medicine] - 2 Weeks Ambulatory/Diagnostic Orders: Continuous Passive Motion (CPM) Machine [DME.AMB1] Time Frame: 2 Weeks, Location : Determined By Patient Activity/Diet/Wound Care/Special Instructions: Weightbearing as tolerated with a walker CPM 5-6h daily Leave dressing intact. May be removed by home care nurse in 7 days. May shower with dressing on. [facility] with questions or concerns [phone] Discharge Disposition: HOME WITH HOME HEALTH SERVICES
[2017-05-30] MEDS ORDERED: LACTATED RINGERS 1,000 ML IV SCH (11:45)
--- NOTE | 2017-05-30 12:48 | P.PN ---
Subjective Progress Note Date: 05/30/17 Mr. Francois is a 72-year-old male with past medical history significant for hypertension. We are following with him for new onset atrial fibrillation s/o left knee total arthroplasty. Yesterday he was started on Eliquis 5 mg PO daily. Telemetry tracings indicate he is still in atrial fibrillation with controlled ventricular response. He denies chest pain, shortness of breath, dizziness, palpitations and has had no s/s of bleeding since starting anticoagulation. Objective - Vital Signs Vital signs: Vital Signs Temp 97.4 F L 05/30/17 07:22 Pulse 87 05/30/17 08:00 Resp 16 05/30/17 08:00 BP 127/82 05/30/17 07:22 Pulse Ox 96 05/30/17 07:22 Intake & Output 05/29/17 05/30/17 05/30/17 18:59 06:59 18:59 Intake Total 200 Output Total 640 1200 Balance -640 -1000 Weight 117.934 kg Intake: Oral 200 Output: Urine 640 1200 Other: Voiding Method Toilet Toilet Urinal Urinal # Voids 3 - Exam GENERAL: Well-appearing, well-nourished and in no acute distress. NECK: Supple without JVD or thyromegaly. LUNGS: Breath sounds clear to auscultation bilaterally. Respiration equal and unlabored. No wheezes, rales or rhonchi. HEART: Irregular rate and rhythm without murmurs, rubs or gallops. S1 and S2 heard. EXTREMITIES: Normal range of motion, no edema. No clubbing or cyanosis. Peripheral pulses intact and strong. - Labs CBC & Chem 7: 05/29/17 06:25 05/28/17 14:50 Assessment and Plan Plan: ASSESSMENT 1. New onset atrial fibrillation with controlled ventricular response 2. Essential hypertension 3. Postoperative day #2 left total knee arthroplasty PLAN Continue with Eliquis 5 mg PO BID. Follow up appointment with Dr. Ashford 06/20 at 1630. Thank you. Nurse Practitioner note has been reviewed, I agree with a documented findings and plan of care. Patient was seen and examined.
== END 2017-05-30 11:05 | disposition home health service (06) | DRG 470 ==
LOC: 2ORMAIN 13:03 → 3SUR 18:11
PROVIDERS: ADMIT Orthopaedic Surgery; ATTEND Orthopaedic Surgery
PROC: 0SRD0J9 Replacement of Left Knee Joint with Synthetic Substitute, Cemented, Open Approach (ICD-10-PCS; principal; 2017-05-28 15:50)
DX: M17.12 Unilateral primary osteoarthritis, left knee (principal); I48.91 Unspecified atrial fibrillation; I10 Essential (primary) hypertension; G89.18 Other acute postprocedural pain; Z96.651 Presence of right artificial knee joint; Z96.643 Presence of artificial hip joint, bilateral; K21.9 Gastro-esophageal reflux disease without esophagitis; Z79.01 Long term (current) use of anticoagulants; Z79.82 Long term (current) use of aspirin; Z79.899 Other long term (current) drug therapy; Z80.0 Family history of malignant neoplasm of digestive organs; Z85.828 Personal history of other malignant neoplasm of skin; Z87.891 Personal history of nicotine dependence
CPT/HCPCS: 84132; 85025; 88300; 93005; 93306

== ENCOUNTER → 2017-06-07 | Outpatient (CLI) | payer MEDICARE ==
--- NOTE | 2017-06-07 16:59 | US ---
EXAMINATION TYPE: US venous doppler duplex LE LT DATE OF EXAM: 06/07/2017 3:03 PM COMPARISON: NONE CLINICAL HISTORY: I82.402 Acute Embolism And Thrombosis. Left knee replacement 05/28/17, pain left le g SIDE PERFORMED: left TECHNIQUE: The lower extremity deep venous system is examined utilizing real time linear array sonog waqas with graded compression, doppler sonography and color-flow sonography. VESSELS IMAGED: External Iliac Vein (EIV) Common Femoral Vein Deep Femoral Vein Greater Saphenous Vein * Femoral Vein Popliteal Vein Small Saphenous Vein * Proximal Calf Veins (* superficial vessels) Left Leg: No evidence of DVT IMPRESSION: Negative exam. No evidence of deep venous thrombosis in the left leg.
== END | disposition home or self-care (01) ==
LOC: RADUSWWP 14:17
PROVIDERS: ATTEND Orthopaedic Surgery
DX: I82.402 Acute embolism and thrombosis of unspecified deep veins of left lower extremity (principal)

== ENCOUNTER 2017-07-04 10:46 | Inpatient (IN) | payer MEDICARE ==
--- NOTE | 2017-07-04 11:32 | ED ---
GI Bleed HPI - General Chief complaint: GI Bleed Stated complaint: AFib/post knee surgery Time Seen by Provider: 07/04/17 11:15 Source: patient, RN notes reviewed Mode of arrival: wheelchair Limitations: no limitations - History of Present Illness Initial comments: This is a 72-year-old male with a history of A. octavio who is on L Aquinas who states her past 3-4 days she's had black stools he's now complains some nonspecific abdominal queasiness he appears pale he was seen in the office today and had heme-positive black stools. He denies any fevers chills sweats nausea no prior history of GI bleed did just have a left knee replacement done about a month ago. The A. fib is new as of the month ago surgery MD complaint: melena - Related Data Home Medications Medication Instructions Recorded Confirmed Atenolol 100 mg PO DAILY 01/20/14 07/04/17 Diltiazem Cd [Cardizem CD] 300 mg PO DAILY 01/20/14 07/04/17 Omeprazole [PriLOSEC] 20 mg PO AC-BRKFST 01/20/14 07/04/17 Multivitamins, Thera [Multivitamin 1 tab PO DAILY 05/16/17 07/04/17 (formulary)] HYDROcodone/APAP 5-325MG [[place] 1 - 2 tab PO Q4H PRN 07/04/17 07/04/17 5-325] Previous Rx's Medication Instructions Recorded Apixaban [Eliquis] 5 mg PO BID #60 tab 05/29/17 Allergies Allergy/AdvReac Type Severity Reaction Status Date / Time No Known Allergies Allergy Verified 07/04/17 11:13 Review of Systems ROS Statement: Those systems with pertinent positive or pertinent negative responses have been documented in the HPI. ROS Other: All systems not noted in ROS Statement are negative. Past Medical History Past Medical History: Cancer, GERD/Reflux, Hypertension, Osteoarthritis (OA) Additional Past Medical History / Comment(s): hemorrhoids, hx skin cancer History of Any Multi-Drug Resistant Organisms: None Reported Past Surgical History: Appendectomy, Joint Replacement, Tonsillectomy Additional Past Surgical History / Comment(s): both hips, knee replacements Past Anesthesia/Blood Transfusion Reactions: No Reported Reaction Additional Past Anesthesia/Blood Transfusion Reaction / Comment(s): never had a blood transfusion Past Psychological History: No Psychological Hx Reported Smoking Status: Former smoker Past Alcohol Use History: Occasional Past Drug Use History: None Reported - Past Family History Brother(s) Family Medical History: Cancer Additional Family Medical History / Comment(s): pancreatic cancer General Exam - General Exam Comments Initial Comments: This is a well-developed well-nourished awake alert oriented times 3 male Limitations: no limitations General appearance: alert, in no apparent distress Head exam: Present: atraumatic, normocephalic, normal inspection Eye exam: Present: normal appearance, PERRL, EOMI. Absent: scleral icterus, conjunctival injection, periorbital swelling ENT exam: Present: normal exam, mucous membranes moist Neck exam: Present: normal inspection. Absent: tenderness, meningismus, lymphadenopathy Respiratory exam: Present: normal lung sounds bilaterally. Absent: respiratory distress, wheezes, rales, rhonchi, stridor Cardiovascular Exam: Present: tachycardia, irregular rhythm. Absent: systolic murmur, diastolic murmur, rubs, gallop, clicks GI/Abdominal exam: Present: soft, normal bowel sounds. Absent: distended, tenderness, guarding, rebound, rigid Rectal exam: Present: deferred Extremities exam: Present: normal inspection, full ROM, normal capillary refill. Absent: tenderness, pedal edema, joint swelling, calf tenderness Back exam: Present: normal inspection Neurological exam: Present: alert, oriented X3, CN II-XII intact Psychiatric exam: Present: normal affect, normal mood Skin exam: Present: warm, dry, intact, pallor. Absent: rash Course Vital Signs 07/04/17 07/04/17 07/04/17 10:55 11:10 11:40 Temperature 98.0 F Pulse Rate 110 H 70 70 Respiratory 20 18 18 Rate Blood Pressure 122/77 140/83 135/79 O2 Sat by Pulse 99 100 100 Oximetry 07/04/17 12:34 Temperature Pulse Rate 91 Respiratory 15 Rate Blood Pressure 92/63 O2 Sat by Pulse 100 Oximetry Medical Decision Making - Medical Decision Making Patient will be admitted. I did discuss case Dr. Gee. GI will be consulted patient currently does not have a surgeon his has retired he is good with city call being consulted. - Lab Data Result diagrams: 07/04/17 11:27 07/04/17 11:27 Lab Results 07/04/17 07/04/17 07/04/17 Range/Units 11:27 11:27 11:27 WBC 8.8 (3.8-10.6) k/uL RBC 3.46 L (4.30-5.90) m/uL Hgb 10.9 L (13.0-17.5) gm/dL Hct 34.2 L (39.0-53.0) % MCV 98.7 (80.0-100.0) fL MCH 31.4 (25.0-35.0) pg MCHC 31.8 (31.0-37.0) g/dL RDW 12.9 (11.5-15.5) % Plt Count 254 (150-450) k/uL Neutrophils % 70 % Lymphocytes % 23 % Monocytes % 5 % Eosinophils % 1 % Basophils % 1 % Neutrophils # 6.1 (1.3-7.7) k/uL Lymphocytes # 2.0 (1.0-4.8) k/uL Monocytes # 0.4 (0-1.0) k/uL Eosinophils # 0.1 (0-0.7) k/uL Basophils # 0.1 (0-0.2) k/uL PT (9.0-12.0) sec INR (<1.2) APTT (22.0-30.0) sec Sodium 140 (137-145) mmol/L Potassium 4.9 (3.5-5.1) mmol/L Chloride 106 (98-107) mmol/L Carbon Dioxide 22 (22-30) mmol/L Anion Gap 12 mmol/L BUN 23 H (9-20) mg/dL Creatinine 0.88 (0.66-1.25) mg/dL Est GFR (MDRD) Af Amer >60 (>60 ml/min/1.73 sqM) Est GFR (MDRD) Non-Af >60 (>60 ml/min/1.73 sqM) Glucose 134 H (74-99) mg/dL Calcium 9.8 (8.4-10.2) mg/dL Magnesium 2.3 (1.6-2.3) mg/dL Total Bilirubin 0.4 (0.2-1.3) mg/dL AST 24 (17-59) U/L ALT 35 (21-72) U/L Alkaline Phosphatase 81 (38-126) U/L Total Creatine Kinase 33 L (55-170) U/L CK-MB (CK-2) 0.8 (0.0-2.4) ng/mL CK-MB (CK-2) Rel Index 2.4 Troponin I <0.012 (0.000-0.034) ng/mL Total Protein 7.2 (6.3-8.2) g/dL Albumin 4.0 (3.5-5.0) g/dL Blood Type Blood Type Recheck Antibody Screen Spec Expiration Date 07/04/17 07/04/17 Range/Units 11:27 11:27 WBC (3.8-10.6) k/uL RBC (4.30-5.90) m/uL Hgb (13.0-17.5) gm/dL Hct (39.0-53.0) % MCV (80.0-100.0) fL MCH (25.0-35.0) pg MCHC (31.0-37.0) g/dL RDW (11.5-15.5) % Plt Count (150-450) k/uL Neutrophils % % Lymphocytes % % Monocytes % % Eosinophils % % Basophils % % Neutrophils # (1.3-7.7) k/uL Lymphocytes # (1.0-4.8) k/uL Monocytes # (0-1.0) k/uL Eosinophils # (0-0.7) k/uL Basophils # (0-0.2) k/uL PT 11.2 (9.0-12.0) sec INR 1.1 (<1.2) APTT 23.3 (22.0-30.0) sec Sodium (137-145) mmol/L Potassium (3.5-5.1) mmol/L Chloride (98-107) mmol/L Carbon Dioxide (22-30) mmol/L Anion Gap mmol/L BUN (9-20) mg/dL Creatinine (0.66-1.25) mg/dL Est GFR (MDRD) Af Amer (>60 ml/min/1.73 sqM) Est GFR (MDRD) Non-Af (>60 ml/min/1.73 sqM) Glucose (74-99) mg/dL Calcium (8.4-10.2) mg/dL Magnesium (1.6-2.3) mg/dL Total Bilirubin (0.2-1.3) mg/dL AST (17-59) U/L ALT (21-72) U/L Alkaline Phosphatase (38-126) U/L Total Creatine Kinase (55-170) U/L CK-MB (CK-2) (0.0-2.4) ng/mL CK-MB (CK-2) Rel Index Troponin I (0.000-0.034) ng/mL Total Protein (6.3-8.2) g/dL Albumin (3.5-5.0) g/dL Blood Type A Positive Blood Type Recheck A Pos Antibody Screen NEGATIVE Spec Expiration Date 07/07/20172326 - EKG Data -: EKG Interpreted by Me (Atrial fibrillation rate of 110 QRS 96 QT since QTC of 346/[address]-) Disposition Clinical Impression: Upper GI bleed, Melena, Anemia Disposition: ADMITTED IP TO THIS HOSP Condition: Stable Referrals: Chris Rice MD [Primary Care Provider] - 1-2 days
[2017-07-04 11:43] LABS: Basophils # (A) 0.1 k/uL (0-0.2); Basophils % (A) 1 %; CH 32.1; CHCM 32.6; Eosinophils # (A) 0.1 k/uL (0-0.7); Eosinophils % (A) 1 %; HCT 34.2 % (39.0-53.0); HGB 10.9 gm/dL (13.0-17.5); Luc # (Auto) 0.09; Luc % (Auto) 1; Lymphocytes % (A) 23 %; MCH 31.4 pg (25.0-35.0); MCHC 31.8 g/dL (31.0-37.0); MCV 98.7 fL (80.0-100.0); Monocytes # (A) 0.4 k/uL (0-1.0); Monocytes % (A) 5 %; Neutrophils # (A) 6.1 k/uL (1.3-7.7); Neutrophils % (A) 70 %; RBC 3.46 m/uL (4.30-5.90); RDW 12.9 % (11.5-15.5); WBC 8.8 k/uL (3.8-10.6); WBC (Perox) 8.95
[2017-07-04 11:52] LABS: ALT 35 U/L (21-72); AST 24 U/L (17-59); Alkaline Phosphatase 81 U/L (38-126); Anion Gap 12 mmol/L; Blood Urea Nitrogen 23 mg/dL (9-20); Calcium 9.8 mg/dL (8.4-10.2); Carbon Dioxide 22 mmol/L (22-30); Chloride 106 mmol/L (98-107); Glucose 134 mg/dL (74-99); Magnesium 2.3 mg/dL (1.6-2.3); Non-African American GFR(MDRD) >60 (>60 ml/min/1.73 sqM); Potassium 4.9 mmol/L (3.5-5.1); Sodium 140 mmol/L (137-145); Total Bilirubin 0.4 mg/dL (0.2-1.3); Total Protein 7.2 g/dL (6.3-8.2)
[2017-07-04 11:56] LABS: INR 1.1 (<1.2); Partial Thromboplastin Time 23.3 sec (22.0-30.0); Prothrombin Time 11.2 sec (9.0-12.0)
[2017-07-04 12:06] LABS: Creatine Kinase 33 U/L (55-170)
[2017-07-04 12:19] LABS: Creatine Kinase MB 0.8 ng/mL (0.0-2.4); Troponin I <0.012 ng/mL (0.000-0.034)
[2017-07-04] MEDS ORDERED: ONDANSETRON 4 MG/2 ML VIAL IVP PRN (13:21)
[2017-07-04] MEDS ORDERED: NALOXONE 0.4 MG/ML 1 ML VIAL IV PRN (13:21)
[2017-07-04] MEDS ORDERED: PANTOPRAZOLE 40 MG/10 ML VIAL IVP ONE (13:26)
--- NOTE | 2017-07-04 13:50 | XR ---
EXAMINATION TYPE: XR abdomen acute w cxr DATE OF EXAM: 07/04/2017 CLINICAL HISTORY: Pain per order. Rectal bleeding and nausea for 3 days per patient. TECHNIQUE: Single frontal view of chest is obtained. Supine and upright views of the abdomen are acq uired. COMPARISON: Abdominal x-ray December 29, 2010. FINDINGS: There is chronic parenchymal change without suspicious focal airspace opacity, pleural effu blanca, or pneumothorax seen bilaterally. Cardiac silhouette size appears within normal limits. There is joint space loss bilateral glenohumeral joints. Gas is noted in nondistended small bowel loops. Gas is seen in slightly prominent small bowel loop in the left midabdomen Gas and fecal material is seen in nondistended colon. There are thickened haustr a identified in the left midabdomen presumed within the mid transverse colon. There is metallic artif act from bilateral hip surgery now identified. There is vascular calcification in the pelvis redemons trated. No pneumoperitoneum is seen. Underlying scoliosis is present. IMPRESSION: 1. No acute pulmonary process. 2. Overall nonspecific but favor nonobstructive bowel gas pattern. Possible colitis transverse colon, correlate clinically.
[2017-07-04] MEDS: SODIUM CHLORIDE 0.9% 1,000 ML IV SCH ×2 (14:03→21:32)
--- NOTE | 2017-07-04 15:34 | P.HPIM ---
History of Present Illness H&P Date: 07/04/17 Chief Complaint: dark stool Is a 72 years old male with past medical history of GERD, hypertension , osteoarthritis status post knee replacement on May 28, 2017, history of hemorrhoids history of skin cancer presents with history of melanoma for past 5 days. Patient denies any episode of dizziness, chest pain, abdominal pain, nausea or vomiting. Patient denies any history of hematochezia or previous presentation of melena. Vitals in the ER was normal by patient was found to be in atrial fibrillation. Hemoglobin in the ER is 10.9. Patient received Protonix 80 mg IV bolus, kept nothing by mouth, gastroenterology consulted for an endoscopy. Hemoglobin be checked every 6 hours while patient is in the hospital , type and cross ordered. Review of Systems Constitutional: Denies chills, Denies fever Eyes: denies blurred vision, denies pain Ears, nose, mouth and throat: Denies headache, Denies sore throat Cardiovascular: Denies chest pain, Denies shortness of breath Respiratory: Denies cough Gastrointestinal: Reports melena, Denies abdominal pain, Denies bloating, Denies BRBPR, Denies constipation, Denies diarrhea, Denies hematemesis, Denies hematochezia, Denies nausea, Denies vomiting Genitourinary: Denies urinary frequency Musculoskeletal: Denies myalgias Integumentary: Denies rash, Denies sores Neurological: Denies ataxia, Denies balance difficulties, Denies confusion, Denies double vision, Denies gait dysfunction, Denies transient paralysis, Denies vertigo, Denies weakness Psychiatric: Denies anxiety, Denies depression Endocrine: Denies excessive sweating, Denies excessive thirst Past Medical History Past Medical History: Atrial Fibrillation, Cancer, GERD/Reflux, Hypertension, Osteoarthritis (OA) Additional Past Medical History / Comment(s): Recently diagnosed with Afib, chronic low back pain, diverticular dx, vertigo at times, sinus problems, hemorrhoids, hx skin cancer removal, past several finger fractures. 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 Past Anesthesia/Blood Transfusion Reactions: No Reported Reaction Additional Past Anesthesia/Blood Transfusion Reaction / Comment(s): never had a blood transfusion Smoking Status: Former smoker - Past Family History Brother(s) Family Medical History: Cancer Additional Family Medical History / Comment(s): pancreatic cancer Mother Family Medical History: No Reported History Additional Family Medical History / Comment(s): Mother lived to be 90yrs old. Father Family Medical History: No Reported History Additional Family Medical History / Comment(s): Father lived to be in his early 80's. Medications and Allergies Home Medications Medication Instructions Recorded Confirmed Type Atenolol 100 mg PO DAILY 01/20/14 07/04/17 History Diltiazem Cd [Cardizem CD] 300 mg PO DAILY 01/20/14 07/04/17 History Omeprazole [PriLOSEC] 20 mg PO AC-BRKFST 01/20/14 07/04/17 History Multivitamins, Thera [Multivitamin 1 tab PO DAILY 05/16/17 07/04/17 History (formulary)] Apixaban [Eliquis] 5 mg PO BID #60 tab 05/29/17 07/04/17 Rx HYDROcodone/APAP 5-325MG [[place] 1 - 2 tab PO Q4H PRN 07/04/17 07/04/17 History 5-325] Allergies Allergy/AdvReac Type Severity Reaction Status Date / Time No Known Allergies Allergy Verified 07/04/17 11:13 Physical Exam Vitals: Vital Signs Temp Pulse Resp BP Pulse Ox 07/04/17 14:17 97 20 110/79 96 07/04/17 13:24 86 15 106/60 98 07/04/17 12:34 91 15 92/63 100 07/04/17 11:40 70 18 135/79 100 07/04/17 11:10 70 18 140/83 100 07/04/17 10:55 98.0 F 110 H 20 122/77 99 Intake and Output 07/04/17 07/04/17 07/04/17 06:59 14:59 22:59 Other: Weight 108.862 kg Patient Weight 07/05/17 06:59 Weight 108.862 kg - Constitutional General appearance: no acute distress - EENT Eyes: EOMI, PERRLA ENT: hearing grossly normal - Neck Neck: no lymphadenopathy, normal ROM Carotids: bilateral: upstroke normal - Respiratory Respiratory: bilateral: CTA, negative: diminished, dullness, rales, rhonchi - Cardiovascular Rhythm: irregularly irregular Heart sounds: normal: S1, S2 Abnormal Heart Sounds: no systolic murmur, no diastolic murmur ankle Peripheral Edema: bilateral: None - Gastrointestinal General gastrointestinal: no distended, no organomegaly, soft, no tenderness - Integumentary Integumentary: no pale, no rash - Neurologic Neurologic: CNII-XII intact - Musculoskeletal Musculoskeletal: strength equal bilaterally - Psychiatric Psychiatric: A&O x's 3 Results CBC & Chem 7: 07/04/17 11:27 07/04/17 11:27 Labs: Abnormal Lab Results - Last 24 Hours (Table) 07/04/17 07/04/17 07/04/17 Range/Units 11:27 11:27 11:27 RBC 3.46 L (4.30-5.90) m/uL Hgb 10.9 L (13.0-17.5) gm/dL Hct 34.2 L (39.0-53.0) % BUN 23 H (9-20) mg/dL Glucose 134 H (74-99) mg/dL Total Creatine Kinase 33 L (55-170) U/L Thrombosis Risk Factor Assmnt - DVT/VTE Prophylaxis DVT/VTE Prophylaxis: Mechanical Prophylaxis ordered - Choose All That Apply Any of the Below Risk Factors Present?: Yes Other Risk Factors: Yes Each Risk Factor Represents 2 Points: Age 61-74 years, Malignancy Other congenital or acquired thrombophilia - If yes, enter type in comment: No Thrombosis Risk Factor Assessment Total Risk Factor Score: 4 Thrombosis Risk Factor Assessment Level: Moderate Risk Assessment and Plan Plan: #1 upper GI bleed- continue Protonix 40 mg IV twice a day, nothing by mouth except ice chips, normal saline at 1 25 mL/h, hemoglobin checked every 6 hours, continue to monitor vitals to measure hemodynamic stability #2 history of persistent atrial fibrillation on Cardizem 300 mg by mouth daily atenolol 100 mg by mouth daily with Eliquis 5 mg by mouth twice a day, Eliquis held due to GI bleed #3 GERD- continue Protonix 40 mg IV twice a day #4 osteoarthritis status post knee arthroplasty - stable #5 DVT prophylaxis and mechanical prophylaxis #6 CODE STATUS full code
[2017-07-04 20:30] LABS: Basophils # (A) 0.1 k/uL (0-0.2); Basophils % (A) 1 %; CH 31.9; Eosinophils # (A) 0.1 k/uL (0-0.7); Eosinophils % (A) 2 %; HCT 31.7 % (39.0-53.0); HDW 2.95; HGB 9.8 gm/dL (13.0-17.5); Hypochromasia Slight; Luc # (Auto) 0.14; Luc % (Auto) 2; Lymphocytes # (A) 2.3 k/uL (1.0-4.8); Lymphocytes % (A) 25 %; MCH 31.2 pg (25.0-35.0); MCHC 31.1 g/dL (31.0-37.0); MCV 100.3 fL (80.0-100.0); Monocytes # (A) 0.4 k/uL (0-1.0); Monocytes % (A) 5 %; Neutrophils # (A) 6.2 k/uL (1.3-7.7); Neutrophils % (A) 67 %; RBC 3.16 m/uL (4.30-5.90); RDW 13.1 % (11.5-15.5); WBC 9.3 k/uL (3.8-10.6); WBC (Perox) 9.17
[2017-07-04] MEDS: PANTOPRAZOLE 40 MG/10 ML VIAL IVP SCH (21:29)
[2017-07-04] MEDS ORDERED: MELATONIN 5 MG TABLET PO PRN (22:52)
[2017-07-04] MEDS: HYDROcodone/APAP 5-325MG 1 EACH TAB PO PRN (23:48)
[2017-07-05 01:36] LABS: Basophils % (A) 0 %; CH 30.9; CHCM 31.7; Eosinophils # (A) 0.1 k/uL (0-0.7); Eosinophils % (A) 1 %; HCT 29.2 % (39.0-53.0); HDW 2.74; HGB 9.4 gm/dL (13.0-17.5); Luc # (Auto) 0.11; Luc % (Auto) 1; Lymphocytes % (A) 24 %; MCH 31.4 pg (25.0-35.0); MCHC 32.1 g/dL (31.0-37.0); MCV 97.8 fL (80.0-100.0); Mean Platelet Volume 8.6; Monocytes # (A) 0.4 k/uL (0-1.0); Monocytes % (A) 5 %; Neutrophils # (A) 5.5 k/uL (1.3-7.7); Neutrophils % (A) 68 %; RBC 2.99 m/uL (4.30-5.90); RDW 14.3 % (11.5-15.5); WBC 8.1 k/uL (3.8-10.6); WBC (Perox) 8.55
[2017-07-05 07:31] LABS: Basophils % (A) 1 %; CH 30.8; CHCM 31.6; Eosinophils # (A) 0.1 k/uL (0-0.7); Eosinophils % (A) 2 %; HCT 28.3 % (39.0-53.0); HDW 2.76; HGB 9.1 gm/dL (13.0-17.5); Hypochromasia Slight; Luc # (Auto) 0.11; Luc % (Auto) 2; Lymphocytes # (A) 1.8 k/uL (1.0-4.8); Lymphocytes % (A) 30 %; MCH 31.6 pg (25.0-35.0); MCHC 32.4 g/dL (31.0-37.0); MCV 97.8 fL (80.0-100.0); Mean Platelet Volume 8.8; Monocytes # (A) 0.3 k/uL (0-1.0); Monocytes % (A) 5 %; Neutrophils # (A) 3.7 k/uL (1.3-7.7); Neutrophils % (A) 61 %; RBC 2.89 m/uL (4.30-5.90); RDW 14.4 % (11.5-15.5); WBC 6.1 k/uL (3.8-10.6); WBC (Perox) 6.75
[2017-07-05 07:41] LABS: ALT 39 U/L (21-72); AST 19 U/L (17-59); Alkaline Phosphatase 73 U/L (38-126); Anion Gap 7 mmol/L; Blood Urea Nitrogen 16 mg/dL (9-20); Carbon Dioxide 24 mmol/L (22-30); Chloride 109 mmol/L (98-107); Glucose 100 mg/dL (74-99); Non-African American GFR(MDRD) >60 (>60 ml/min/1.73 sqM); Potassium 4.1 mmol/L (3.5-5.1); Sodium 140 mmol/L (137-145); Total Bilirubin 0.4 mg/dL (0.2-1.3); Total Protein 5.9 g/dL (6.3-8.2)
[2017-07-05] MEDS: DILTIAZEM CD 300 MG CAP.ER.24H PO SCH (08:05)
[2017-07-05] MEDS: ATENOLOL 50 MG TAB PO SCH (08:05)
[2017-07-05] MEDS: PANTOPRAZOLE 40 MG/10 ML VIAL IVP SCH ×2 (08:05→20:35)
[2017-07-05] MEDS: SODIUM CHLORIDE 0.9% 1,000 ML IV SCH ×3 (08:06→15:45)
--- NOTE | 2017-07-05 08:50 | P.CONS ---
History of Present Illness - Reason for Consult Consult date: 07/05/17 GI bleed melena Requesting physician: Deanna Gee - History of Present Illness 72-year-old male patient of Dr. Rice recent diagnosis of atrial fibrillation and recent knee surgery 3-4 weeks ago on Eliquis presents with five-day history of black colored bowel movements with mild epigastric soreness and nausea. No history of GI bleeding, fever, chills, hematemesis, or hematochezia. Patient has been averaging 1 maybe 2 black colored bowel movements for the last 5 days. Last black colored bowel movement yesterday morning. Last dose of Eliquis was yesterday morning. He was seen by his PCP yesterday with positive stool guaiac in the office and sent to the ER for further evaluation. EGD many years ago several colonoscopies last one in 2013 with evidence of diverticular disease. Denies excessive usage of NSAIDs or aspirin. He has a few alcoholic drinks couple times a week. No smoking. Hemoglobin one month ago was 13.6 presently 9.1. MCV 97. Platelet 186. INR 1.1. BUN 23. Creatinine 0.8. Review of Systems Constitutional: Denies fever, chills, sweats, weight gain, or loss. HEENT: Negative for migraines, blurred vision or loss, earaches, drainage, tinnitus, oral mucosal lesions, dysphagia, or odynophagia. Cardiac: Atrial fibrillation. Hypertension. Negative for chest pain, arrhythmias, or palpitation. Respiratory: Negative for shortness of breath, hemoptysis, cough, or sputum production. Gastrointestinal: See HPI for pertinent findings. Genitourinary: Negative for hematuria, urgency, frequency, polyuria, dysuria, or penile discharge. Musculoskeletal: Negative for muscle aches, swelling, arthritis, and arthralgias. Neurologic: Negative for stroke or TIA. Endocrine: Negative for thyroid problems. Skin: Basal cell carcinoma. Negative for rash or itching. Psychiatric: Negative history for depression and anxiety All systems: negative (See HPI) Past Medical History Past Medical History: Atrial Fibrillation, Cancer, GERD/Reflux, Hypertension, Osteoarthritis (OA) Additional Past Medical History / Comment(s): Recently diagnosed with Afib, chronic low back pain, diverticular dx, vertigo at times, sinus problems, hemorrhoids, hx skin cancer removal, past several finger fractures. 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 Past Anesthesia/Blood Transfusion Reactions: No Reported Reaction Additional Past Anesthesia/Blood Transfusion Reaction / Comm: never had a blood transfusion Smoking Status: Former smoker - Past Family History Brother(s) Family Medical History: Cancer Additional Family Medical History / Comment(s): pancreatic cancer Mother Family Medical History: No Reported History Additional Family Medical History / Comment(s): Mother lived to be 90yrs old. Father Family Medical History: No Reported History Additional Family Medical History / Comment(s): Father lived to be in his early 80's. Medications and Allergies Home Medications Medication Instructions Recorded Confirmed Type Atenolol 100 mg PO DAILY 01/20/14 07/04/17 History Diltiazem Cd [Cardizem CD] 300 mg PO DAILY 01/20/14 07/04/17 History Omeprazole [PriLOSEC] 20 mg PO AC-BRKFST 01/20/14 07/04/17 History Multivitamins, Thera [Multivitamin 1 tab PO DAILY 05/16/17 07/04/17 History (formulary)] Apixaban [Eliquis] 5 mg PO BID #60 tab 05/29/17 07/04/17 Rx HYDROcodone/APAP 5-325MG [[place] 1 - 2 tab PO Q4H PRN 07/04/17 07/04/17 History 5-325] Allergies Allergy/AdvReac Type Severity Reaction Status Date / Time No Known Allergies Allergy Verified 07/04/17 11:13 Physical Exam Vitals: Vital Signs Temp Pulse Pulse Resp BP BP Pulse Ox 07/05/17 07:59 98.1 F 63 18 114/71 97 07/05/17 04:00 97.6 F 93 16 134/82 98 07/05/17 00:00 98.1 F 100 16 114/73 95 07/04/17 20:00 98.2 F 111 H 16 118/69 97 07/04/17 18:00 98.6 F 106 H 18 146/87 98 07/04/17 16:30 105 H 20 120/80 98 07/04/17 15:26 98.5 F 112 H 17 114/62 98 07/04/17 14:17 97 20 110/79 96 07/04/17 13:24 86 15 106/60 98 07/04/17 12:34 91 15 92/63 100 07/04/17 11:40 70 18 135/79 100 07/04/17 11:10 70 18 140/83 100 07/04/17 10:55 98.0 F 110 H 20 122/77 99 Intake and Output 07/04/17 07/05/17 07/05/17 22:59 06:59 14:59 Intake Total 1000 Balance 1000 Intake: IV 1000 Sodium Chloride 0.9% 1, 1000 000 ml @ 125 mls/hr IV . Q8H [facility] Rx#:[id number] Other: Voiding Method Toilet Toilet # Voids 2 Weight 108.4 kg General appearance: The patient is alert, oriented, in no acute distress. HET: Head is normocephalic and atraumatic. Pupils are equal and reactive. Oropharynx is clear without lesions. Neck: Supple without lymphadenopathy. Trachea midline. Heart: S1 S2. Lungs: No crackles or wheezes are heard. Abdomen: Soft, nontender, nondistended with bowel sounds. No peritoneal signs. No palpable organomegaly or masses. Extremities: Normal skin color and turgor. No cyanosis, rash, ulceration, clubbing, or edema. Radial and pedal pulses are 2/4 bilaterally. Neurological: No focal deficits. Strength and sensation are grossly intact. Results CBC & Chem 7: 07/05/17 07:19 07/05/17 07:19 Labs: Abnormal Lab Results - Last 24 Hours (Table) 07/04/17 07/04/17 07/04/17 Range/Units 11:27 11:27 11: RBC 3.46 L (4.30-5.90) m/uL Hgb 10.9 L (13.0-17.5) gm/dL Hct 34.2 L (39.0-53.0) % MCV (80.0-100.0) fL Chloride (98-107) mmol/L BUN 23 H (9-20) mg/dL Glucose 134 H (74-99) mg/dL Total Creatine Kinase 33 L (55-170) U/L Total Protein (6.3-8.2) g/dL Albumin (3.5-5.0) g/dL 07/04/17 07/05/17 07/05/17 Range/Units 19:53 01:22 07:19 RBC 3.16 L 2.99 L (4.30-5.90) m/uL Hgb 9.8 L 9.4 L (13.0-17.5) gm/dL Hct 31.7 L 29.2 L (39.0-53.0) % MCV 100.3 H (80.0-100.0) fL Chloride 109 H (98-107) mmol/L BUN (9-20) mg/dL Glucose 100 H (74-99) mg/dL Total Creatine Kinase (55-170) U/L Total Protein 5.9 L (6.3-8.2) g/dL Albumin 3.1 L (3.5-5.0) g/dL 07/05/17 Range/Units 07:19 RBC 2.89 L (4.30-5.90) m/uL Hgb 9.1 L (13.0-17.5) gm/dL Hct 28.3 L (39.0-53.0) % MCV (80.0-100.0) fL Chloride (98-107) mmol/L BUN (9-20) mg/dL Glucose (74-99) mg/dL Total Creatine Kinase (55-170) U/L Total Protein (6.3-8.2) g/dL Albumin (3.5-5.0) g/dL Assessment and Plan (1) Upper GI bleed Narrative/Plan: 72-year-old male recent total knee arthroplasty and recent diagnosis of atrial fibrillation on ELIQUIS presents with 5 day history of melena and mild midepigastric discomfort nausea suggestive of acute upper GI bleed possible peptic ulcer disease possible bleeding angiectasia. Current Visit: Yes Status: Acute Code(s): K92.2 - GASTROINTESTINAL HEMORRHAGE, UNSPECIFIED SNOMED Code(s): 38869123 (2) Acute blood loss anemia Current Visit: Yes Status: Acute Code(s): D62 - ACUTE POSTHEMORRHAGIC ANEMIA SNOMED Code(s): 597457140 (3) Atrial fibrillation Current Visit: Yes Status: Acute Code(s): I48.91 - UNSPECIFIED ATRIAL FIBRILLATION SNOMED Code(s): 31249549 (4) Melena Current Visit: Yes Status: Acute Code(s): K92.1 - MELENA SNOMED Code(s): 2287675 (5) S/P total knee arthroplasty Current Visit: No Status: Acute Code(s): Z96.659 - PRESENCE OF UNSPECIFIED ARTIFICIAL KNEE JOINT SNOMED Code(s): 9806046877550 Plan: 1. IV Protonix 40 mg every 12. 2. EGD evaluation possible small bowel capsule endoscopy. 3. Hold anticoagulation. 4. CBC monitoring. The service delivery manager has discussed the risks, benefits and alternative therapies for the above-mentioned procedure and for both sedation/analgesia as well as necessary blood product administration, if indicated, as they pertain to this patient. The patient has indicated understanding and acceptance of the risks and procedures discussed. Thank you for this kind referral and the opportunity to participate in the care of your patient. This consultation was discussed with Dr. Ashford. The impression and plan of care have been directed as dictated.
--- NOTE | 2017-07-05 11:39 | P.PN ---
Subjective Progress Note Date: 07/05/17 Is a 72 years old male with past medical history of GERD, hypertension , osteoarthritis status post knee replacement on May 28, 2017, history of hemorrhoids history of skin cancer presents with history of melanoma for past 5 days. Patient denies any episode of dizziness, chest pain, abdominal pain, nausea or vomiting. Patient denies any history of hematochezia or previous presentation of melena. Vitals in the ER was normal by patient was found to be in atrial fibrillation. Hemoglobin in the ER is 10.9. Patient received Protonix 80 mg IV bolus, kept nothing by mouth, gastroenterology consulted for an endoscopy. Hemoglobin be checked every 6 hours while patient is in the hospital , type and cross ordered. 07/05: Hemoglobin this morning is 9.1. BUN 16 and creatinine 0.78. He did not have a bowel movement last evening. He states he is passing gas. He is complaining of achiness in the lower abdomen midline. Patient is scheduled for EGD with Dr. Cole this afternoon. Patient states he only slept 3 hours last night. Melatonin did not help and this is been increased to 10 mg and scheduled at 8 PM. Objective - Vital Signs Vital signs: Vital Signs Temp 98.1 F 07/05/17 07:59 Pulse 63 07/05/17 07:59 Resp 18 07/05/17 07:59 BP 114/71 07/05/17 07:59 Pulse Ox 97 07/05/17 07:59 Intake & Output 07/04/17 07/05/17 07/05/17 18:59 06:59 18:59 Intake Total 1000 Balance 1000 Weight 108.862 kg 108.4 kg Intake: IV 1000 Sodium Chloride 0.9% 1, 1000 000 ml @ 125 mls/hr IV . [facility]H [facility] Rx#:[id number] Other: Voiding Method Toilet # Voids 2 - Exam General appearance: no acute distress - EENT Eyes: EOMI, PERRLA ENT: hearing grossly normal - Neck Neck: no lymphadenopathy, normal ROM Carotids: bilateral: upstroke normal - Respiratory Respiratory: bilateral: CTA, negative: diminished, dullness, rales, rhonchi - Cardiovascular Rhythm: irregularly irregular Heart sounds: normal: S1, S2 Abnormal Heart Sounds: no systolic murmur, no diastolic murmur ankle Peripheral Edema: bilateral: None - Gastrointestinal General gastrointestinal: no distended, no organomegaly, soft, no tenderness - Integumentary Integumentary: no pale, no rash - Neurologic Neurologic: CNII-XII intact - Musculoskeletal Musculoskeletal: strength equal bilaterally - Psychiatric Psychiatric: A&O x's 3 - Labs CBC & Chem 7: 07/05/17 07:19 07/05/17 07:19 Labs: Abnormal Lab Results - Last 24 Hours (Table) 07/04/17 07/04/17 07/04/17 Range/Units 11:27 11:27 11:27 RBC 3.46 L (4.30-5.90) m/uL Hgb 10.9 L (13.0-17.5) gm/dL Hct 34.2 L (39.0-53.0) % MCV (80.0-100.0) fL Chloride (98-107) mmol/L BUN 23 H (9-20) mg/dL Glucose 134 H (74-99) mg/dL Total Creatine Kinase 33 L (55-170) U/L Total Protein (6.3-8.2) g/dL Albumin (3.5-5.0) g/dL 07/04/17 07/05/17 07/05/17 Range/Units 19:53 01:22 07:19 RBC 3.16 L 2.99 L (4.30-5.90) m/uL Hgb 9.8 L 9.4 L (13.0-17.5) gm/dL Hct 31.7 L 29.2 L (39.0-53.0) % MCV 100.3 H (80.0-100.0) fL Chloride 109 H (98-107) mmol/L BUN (9-20) mg/dL Glucose 100 H (74-99) mg/dL Total Creatine Kinase (55-170) U/L Total Protein 5.9 L (6.3-8.2) g/dL Albumin 3.1 L (3.5-5.0) g/dL 07/05/17 Range/Units 07:19 RBC 2.89 L (4.30-5.90) m/uL Hgb 9.1 L (13.0-17.5) gm/dL Hct 28.3 L (39.0-53.0) % MCV (80.0-100.0) fL Chloride (98-107) mmol/L BUN (9-20) mg/dL Glucose (74-99) mg/dL Total Creatine Kinase (55-170) U/L Total Protein (6.3-8.2) g/dL Albumin (3.5-5.0) g/dL Assessment and Plan Plan: #1 upper GI bleed- continue Protonix 40 mg IV twice a day, nothing by mouth except ice chips, normal saline decreased to 75 mL/h, hemoglobin checked daily. GI consult appreciated. Patient is scheduled for EGD this afternoon #2 history of persistent atrial fibrillation on Cardizem 300 mg by mouth daily atenolol 100 mg by mouth daily with Eliquis 5 mg by mouth twice a day, Eliquis held due to GI bleed #3 GERD- continue Protonix 40 mg IV twice a day #4 osteoarthritis status post knee arthroplasty - stable #5 DVT prophylaxis and mechanical prophylaxis #6 CODE STATUS full code Discharge plan: Return home Impression and plan of care have been directed as dictated by the signing physician. Makayla Olmedo nurse practitioner acting as scribe for signing physician.
[2017-07-05] MEDS: MULTIVITAMINS, THERA 1 EACH TAB PO SCH (12:25)
--- NOTE | 2017-07-05 12:27 | P.GSCN ---
<Belinda Torres Nancy - Last Filed: 07/05/17 12:26> History of Present Illness Consult date: 07/05/17 Reason for Consult: Black colored bowel movements with epigastric discomfort History of present illness: 72-year-old male being seen for a surgical eval at the request of the attending for chief complaint of having a history of black colored bowel movements onset 5 -6 days with mid epigastric discomfort. Patient states he has not had any prior episodes gives a history of noting over the last several days having painless black stools Patient states that he recently underwent a left total knee replacement in May in the preoperative area was noted to be in atrial fibrillation. Patient stated he was asymptomatic and was unaware of having an irregular heart beat until this incident. Patient stated that he was started on elquis Patient states he was seen in his PCP office the day before coming into the hospital to be evaluated for the above-mentioned symptoms stool was positive for occult blood told to come to the emergency room to be evaluated. no significant past surgical history except for the left total knee,and colonoscopy done 2013 no evidence of any diverticular disease was told was unremarkable and did not needed to be repeated for another 10 years no polyps. Currently the patient states epigastric discomfort persist has no stool this morning small stool that was black yesterday evening. Hemoglobin 9.1 this morning. Hemoglobin on admission 10.9. elquis has been on hold did note the patient is being seen by GI service and is scheduled today for an EGD It's noted the patient has a soft umbilical hernia nontender patient states his PCP is aware "going to watch it no surgical intervention" Review of Systems Essentially unremarkable except as mentioned of present illness Past Medical History Past Medical History: Atrial Fibrillation, Cancer, GERD/Reflux, Hypertension, Osteoarthritis (OA) Additional Past Medical History / Comment(s): Recently diagnosed with Afib, chronic low back pain, diverticular dx, vertigo at times, sinus problems, hemorrhoids, hx skin cancer removal, past several finger fractures. 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 Past Anesthesia/Blood Transfusion Reactions: No Reported Reaction Additional Past Anesthesia/Blood Transfusion Reaction / Comm: never had a blood transfusion Smoking Status: Former smoker - Past Family History Brother(s) Family Medical History: Cancer Additional Family Medical History / Comment(s): pancreatic cancer Mother Family Medical History: No Reported History Additional Family Medical History / Comment(s): Mother lived to be 90yrs old. Father Family Medical History: No Reported History Additional Family Medical History / Comment(s): Father lived to be in his early 80's. Medications and Allergies Home Medications Medication Instructions Recorded Confirmed Type Atenolol 100 mg PO DAILY 01/20/14 07/04/17 History Diltiazem Cd [Cardizem CD] 300 mg PO DAILY 01/20/14 07/04/17 History Omeprazole [PriLOSEC] 20 mg PO AC-BRKFST 01/20/14 07/04/17 History Multivitamins, Thera [Multivitamin 1 tab PO DAILY 05/16/17 07/04/17 History (formulary)] Apixaban [Eliquis] 5 mg PO BID #60 tab 05/29/17 07/04/17 Rx HYDROcodone/APAP 5-325MG [[place] 1 - 2 tab PO Q4H PRN 07/04/17 07/04/17 History 5-325] Allergies Allergy/AdvReac Type Severity Reaction Status Date / Time No Known Allergies Allergy Verified 07/04/17 11:13 Surgical - Exam Vital Signs Temp Pulse Resp BP Pulse Ox 98.0 F 110 H 20 122/77 99 07/04/17 10:55 07/04/17 10:55 07/04/17 10:55 07/04/17 10:55 07/04/17 10:55 GENERAL APPEARANCE: 72-year-old male patient is alert, oriented, in no acute distress. Talkative cooperative pleasant VITAL SIGNS: Reviewed HEENT: Head is normocephalic and atraumatic. Pupils are equal and reactive. The nares are patent. Oropharynx is clear without lesions. NECK: Supple without lymphadenopathy. Traches midline. HEART: S1, S2. Irregular monitor atrial fibrillation rate controlled denying chest pain no murmur. LUNGS: No crackles or wheezes are heard. On room air adequate air entry is 97% no cough noted no shortness of breath ABDOMEN: Soft, umbilical hernia noted nontender, nondistended with good bowel sounds. No peritoneal signs. No palpable organomegaly or masses. EXTREMITIES: Normal skin color and turgor. No cyanosis, rash, ulceration, clubbing or edema. Radial pedal pulses are 2/4 bilaterally. NEUROLOGICAL: No focal deficits. Strength and sensation are grossly intact. Results Impression Present on admission acute blood loss anemia suspect due to an upper GI bleed A recent left total knee arthroplasty May 2017 Atrial fibrillation controlled ventricular response on elquis Present on admission melena Plan Continue with recommendations by gastroenterology service scheduled today for EGD await findings with further surgical recommendations Management per gastroenterology service will be available for surgical management as needed No evidence of an acute surgical abdomen Defer to the attending for further medical management The above impression and plan of care have been discussed and directed by signing physician. Belinda Torres nurse practitioner acting as scribe for signing physician. - Labs 07/05/17 07:19 07/05/17 07:19 Abnormal Lab Results - Last 24 Hours (Table) 07/04/17 07/04/17 07/05/17 Range/Units 11:27 19:53 01:22 RBC 3.16 L 2.99 L (4.30-5.90) m/uL Hgb 9.8 L 9.4 L (13.0-17.5) gm/dL Hct 31.7 L 29.2 L (39.0-53.0) % MCV 100.3 H (80.0-100.0) fL Chloride (98-107) mmol/L Glucose (74-99) mg/dL Total Creatine Kinase 33 L (55-170) U/L Total Protein (6.3-8.2) g/dL Albumin (3.5-5.0) g/dL 07/05/17 07/05/17 Range/Units 07:19 07:19 RBC 2.89 L (4.30-5.90) m/uL Hgb 9.1 L (13.0-17.5) gm/dL Hct 28.3 L (39.0-53.0) % MCV (80.0-100.0) fL Chloride 109 H (98-107) mmol/L Glucose 100 H (74-99) mg/dL Total Creatine Kinase (55-170) U/L Total Protein 5.9 L (6.3-8.2) g/dL Albumin 3.1 L (3.5-5.0) g/dL Diabetes panel 07/05/17 Range/Units 07:19 Sodium 140 (137-145) mmol/L Potassium 4.1 (3.5-5.1) mmol/L Chloride 109 H (98-107) mmol/L Carbon Dioxide 24 (22-30) mmol/L BUN 16 (9-20) mg/dL Creatinine 0.78 (0.66-1.25) mg/dL Glucose 100 H (74-99) mg/dL Calcium 9.0 (8.4-10.2) mg/dL AST 19 (17-59) U/L ALT 39 (21-72) U/L Alkaline Phosphatase 73 (38-126) U/L Total Protein 5.9 L (6.3-8.2) g/dL Albumin 3.1 L (3.5-5.0) g/dL Calcium panel 07/05/17 Range/Units 07:19 Calcium 9.0 (8.4-10.2) mg/dL Albumin 3.1 L (3.5-5.0) g/dL Pituitary panel 07/05/17 Range/Units 07:19 Sodium 140 (137-145) mmol/L Potassium 4.1 (3.5-5.1) mmol/L Chloride 109 H (98-107) mmol/L Carbon Dioxide 24 (22-30) mmol/L BUN 16 (9-20) mg/dL Creatinine 0.78 (0.66-1.25) mg/dL Glucose 100 H (74-99) mg/dL Calcium 9.0 (8.4-10.2) mg/dL Adrenal panel 07/05/17 Range/Units 07:19 Sodium 140 (137-145) mmol/L Potassium 4.1 (3.5-5.1) mmol/L Chloride 109 H (98-107) mmol/L Carbon Dioxide 24 (22-30) mmol/L BUN 16 (9-20) mg/dL Creatinine 0.78 (0.66-1.25) mg/dL Glucose 100 H (74-99) mg/dL Calcium 9.0 (8.4-10.2) mg/dL Total Bilirubin 0.4 (0.2-1.3) mg/dL AST 19 (17-59) U/L ALT 39 (21-72) U/L Alkaline Phosphatase 73 (38-126) U/L Total Protein 5.9 L (6.3-8.2) g/dL Albumin 3.1 L (3.5-5.0) g/dL <Kathrine Hernandez N - Last Filed: 07/05/17 15:29> Surgical - Exam Vital Signs Temp Pulse Resp BP Pulse Ox 98.0 F 110 H 20 122/77 99 07/04/17 10:55 07/04/17 10:55 07/04/17 10:55 07/04/17 10:55 07/04/17 10:55 Results - Labs 07/05/17 07:19 07/05/17 07:19 Abnormal Lab Results - Last 24 Hours (Table) 07/04/17 07/05/17 07/05/17 Range/Units 19:53 01:22 07:19 RBC 3.16 L 2.99 L (4.30-5.90) m/uL Hgb 9.8 L 9.4 L (13.0-17.5) gm/dL Hct 31.7 L 29.2 L (39.0-53.0) % MCV 100.3 H (80.0-100.0) fL Chloride 109 H (98-107) mmol/L Glucose 100 H (74-99) mg/dL Total Protein 5.9 L (6.3-8.2) g/dL Albumin 3.1 L (3.5-5.0) g/dL 07/05/17 Range/Units 07:19 RBC 2.89 L (4.30-5.90) m/uL Hgb 9.1 L (13.0-17.5) gm/dL Hct 28.3 L (39.0-53.0) % MCV (80.0-100.0) fL Chloride (98-107) mmol/L Glucose (74-99) mg/dL Total Protein (6.3-8.2) g/dL Albumin (3.5-5.0) g/dL Diabetes panel 07/05/17 Range/Units 07:19 Sodium 140 (137-145) mmol/L Potassium 4.1 (3.5-5.1) mmol/L Chloride 109 H (98-107) mmol/L Carbon Dioxide 24 (22-30) mmol/L BUN 16 (9-20) mg/dL Creatinine 0.78 (0.66-1.25) mg/dL Glucose 100 H (74-99) mg/dL Calcium 9.0 (8.4-10.2) mg/dL AST 19 (17-59) U/L ALT 39 (21-72) U/L Alkaline Phosphatase 73 (38-126) U/L Total Protein 5.9 L (6.3-8.2) g/dL Albumin 3.1 L (3.5-5.0) g/dL Calcium panel 07/05/17 Range/Units 07:19 Calcium 9.0 (8.4-10.2) mg/dL Albumin 3.1 L (3.5-5.0) g/dL Pituitary panel 07/05/17 Range/Units 07:19 Sodium 140 (137-145) mmol/L Potassium 4.1 (3.5-5.1) mmol/L Chloride 109 H (98-107) mmol/L Carbon Dioxide 24 (22-30) mmol/L BUN 16 (9-20) mg/dL Creatinine 0.78 (0.66-1.25) mg/dL Glucose 100 H (74-99) mg/dL Calcium 9.0 (8.4-10.2) mg/dL Adrenal panel 07/05/17 Range/Units 07:19 Sodium 140 (137-145) mmol/L Potassium 4.1 (3.5-5.1) mmol/L Chloride 109 H (98-107) mmol/L Carbon Dioxide 24 (22-30) mmol/L BUN 16 (9-20) mg/dL Creatinine 0.78 (0.66-1.25) mg/dL Glucose 100 H (74-99) mg/dL Calcium 9.0 (8.4-10.2) mg/dL Total Bilirubin 0.4 (0.2-1.3) mg/dL AST 19 (17-59) U/L ALT 39 (21-72) U/L Alkaline Phosphatase 73 (38-126) U/L Total Protein 5.9 L (6.3-8.2) g/dL Albumin 3.1 L (3.5-5.0) g/dL
[2017-07-05] MEDS ORDERED: IV FLUID CONTINUATION 1,000 ML IV ONE (15:00)
[2017-07-05] MEDS ORDERED: PROPOFOL 10 MG/ML 20 ML VIAL IV ONE (15:00)
--- NOTE | 2017-07-05 15:11 | P.PCN ---
Date of Procedure: 07/05/17 Procedure(s) Performed: BRIEF HISTORY: Patient is a 72-year-old, pleasant, white male, admitted to the hospital with black tarry stools for the last 3-4 days duration. Last hemoglobin was 9.1 g/dL. He has been on eliquis for the last 1 month for new onset A. fib which has been on hold for the last 2 days. PROCEDURE PERFORMED: Esophagogastroduodenoscopy with biopsy. PREOPERATIVE DIAGNOSIS: Acute GI bleed. IV sedation per anesthesia. PROCEDURE: After informed consent was obtained, the patient was brought into the endoscopy unit. IV sedation was administered by Anesthesia under continuous monitoring. Initially the Olympus GIF-140 video endoscope was inserted into the mouth. Esophagus intubated without any difficulty. It was gradually advanced into the stomach and duodenum and carefully examined. The second part of the duodenum appeared normal. In the duodenal bulb there was a 1 m clean-based ulcer noted with no active bleeding. The scope at this time was withdrawn to the stomach, adequately insufflated with air, and upon careful examination, mucosa of the antrum had gastritis and biopsies were done from this area. The body, cardia and the fundus appeared normal. The scope was then withdrawn into the esophagus. The GE junction was located at 39 cm from the incisors. The esophagus appeared normal. There were no erosions or ulcerations seen and the patient tolerated the procedure well. IMPRESSION: 1. 1 cm duodenal bulbar ulcer with a clean base and no active bleeding. 2. Antral gastritis. RECOMMENDATIONS: The findings of this examination were discussed with the patient as well as his family. At this time will await the biopsy results. Diet will be advanced as tolerated. Hold anticoagulation for 3-5 days.
[2017-07-05] MEDS ORDERED: MELATONIN 5 MG TABLET PO PRN (20:00)
[2017-07-06] MEDS: HYDROcodone/APAP 5-325MG 1 EACH TAB PO PRN (05:23)
[2017-07-06] MEDS: SODIUM CHLORIDE 0.9% 1,000 ML IV SCH (05:25)
[2017-07-06 05:28] VITALS: PULSE 78
[2017-07-06 06:14] LABS: CH 31.6; CHCM 31.5; HCT 28.4 % (39.0-53.0); HDW 2.76; Hypochromasia Slight; MCH 32.1 pg (25.0-35.0); MCHC 31.9 g/dL (31.0-37.0); MCV 100.7 fL (80.0-100.0); Macrocytosis Slight; RBC 2.82 m/uL (4.30-5.90)
[2017-07-06 06:33] LABS: ALT 44 U/L (21-72); AST 20 U/L (17-59); Alkaline Phosphatase 79 U/L (38-126); Anion Gap 7 mmol/L; Blood Urea Nitrogen 12 mg/dL (9-20); Calcium 9.2 mg/dL (8.4-10.2); Carbon Dioxide 23 mmol/L (22-30); Chloride 109 mmol/L (98-107); Glucose 102 mg/dL (74-99); Non-African American GFR(MDRD) >60 (>60 ml/min/1.73 sqM); Potassium 4.2 mmol/L (3.5-5.1); Sodium 139 mmol/L (137-145); Total Bilirubin 0.4 mg/dL (0.2-1.3); Total Protein 5.6 g/dL (6.3-8.2)
[2017-07-06 07:34] VITALS: BP 125/79; RESP 18; TEMP 97.8
[2017-07-06] MEDS: DILTIAZEM CD 300 MG CAP.ER.24H PO SCH (08:07)
[2017-07-06] MEDS: ATENOLOL 50 MG TAB PO SCH (08:07)
[2017-07-06] MEDS: MULTIVITAMINS, THERA 1 EACH TAB PO SCH (08:08)
[2017-07-06] MEDS: PANTOPRAZOLE 40 MG/10 ML VIAL IVP SCH (08:08)
--- NOTE | 2017-07-06 09:43 | P.DS ---
Providers Date of admission: 07/04/17 13:22 Expected date of discharge: 07/06/17 Attending physician: Deanna Gee MD Consults: 07/04/17 13:23 Consult Physician Routine Consulting Provider: Tiffany Ashford Consult Reason/Comments: Upper GI bleed Do you want consulting provider notified?: Yes 07/04/17 13:24 Consult Physician Routine Consulting Provider: Kathrine Hernandez Consult Reason/Comments: Upper GI bleed Do you want consulting provider notified?: Yes Primary care physician: [facility] Course: Is a 72 years old male patient of Dr. Rice with past medical history of GERD, hypertension, osteoarthritis status post knee replacement on May, history of hemorrhoids history of skin cancer presents with history of melanoma for past 5 days. Patient denies any episode of dizziness, chest pain, abdominal pain, nausea or vomiting. Patient denies any history of hematochezia or previous presentation of melena. Vitals in the ER was normal by patient was found to be in atrial fibrillation. Hemoglobin in the ER is 10.9. Patient received Protonix 80 mg IV bolus, kept nothing by mouth, gastroenterology consulted for an endoscopy. Hemoglobin be checked every 6 hours while patient is in the hospital, type and cross ordered. 07/05: Hemoglobin this morning is 9.1. BUN 16 and creatinine 0.78. He did not have a bowel movement last evening. He states he is passing gas. He is complaining of achiness in the lower abdomen midline. Patient is scheduled for EGD with Dr. Cole this afternoon. Patient states he only slept 3 hours last night. Melatonin did not help and this is been increased to 10 mg and scheduled at 8 PM. 07/06: Hemoglobin today is at 9.0 Patient was seen by Dr. Hernandez with no plan for surgical intervention. Patient was seen by Dr. Cole and underwent EGD that showed a 1 cm duodenal bulbar ulcer with clean base and no active bleeding and antral gastritis with recommendations to advance diet and hold anticoagulation for 3-5 days. Biopsy is pending. Patient verbalizes understanding that he is to stay off eliquis and resume this on Saturday. No nonsteroidal anti-inflammatory medications. Patient will be discharged home today in stable condition. Discharge diagnoses: #1 upper GI bleed due to duodenal ulcer and gastritis #2 history of persistent atrial fibrillation #3 GERD #4 osteoarthritis status post knee arthroplasty - stable Discharge plan: Return home Impression and plan of care have been directed as dictated by the signing physician. Makayla Olmedo nurse practitioner acting as scribe for signing physician. Patient Condition at Discharge: Good Plan - Discharge Summary Discharge Rx Participant: No New Discharge Prescriptions: New Pantoprazole [Protonix] 40 mg PO DAILY #60 tablet.dr Continue Diltiazem Cd [Cardizem CD] 300 mg PO DAILY Atenolol 100 mg PO DAILY Multivitamins, Thera [Multivitamin (formulary)] 1 tab PO DAILY Apixaban [Eliquis] 5 mg PO BID #60 tab HYDROcodone/APAP 5-325MG [[place] 5-325] 1 - 2 tab PO Q4H PRN PRN Reason: Pain Discontinued Omeprazole [PriLOSEC] 20 mg PO [facility] Discharge Medication List Atenolol 100 mg PO DAILY 01/20/14 [History] Diltiazem Cd [Cardizem CD] 300 mg PO DAILY 01/20/14 [History] Multivitamins, Thera [Multivitamin (formulary)] 1 tab PO DAILY 05/16/17 [History ] Apixaban [Eliquis] 5 mg PO BID #60 tab 05/29/17 [Rx] HYDROcodone/APAP 5-325MG [[place] 5-325] 1 - 2 tab PO Q4H PRN 07/04/17 [History] Pantoprazole [Protonix] 40 mg PO DAILY #60 tablet. 07/06/17 [Rx] Follow up Appointment(s)/Referral(s): Chris Rice MD [Primary Care Provider] - 1 Week (Office closed, Please call Saturday and make appointment) Tiffany Ashford MD [STAFF PHYSICIAN] - 1 Week (Office closed, Please call and make appointment Saturday) Patient Instructions/Handouts: Gastrointestinal Bleeding (DC) Activity/Diet/Wound Care/Special Instructions: No NSAID. Hold Eliquis. Resume on Saturday, July 10. Discharge Disposition: HOME SELF-CARE
--- NOTE | 2017-07-06 11:56 | PN ---
PROGRESS NOTE REQUESTING PHYSICIAN: Dr. Rice The patient is a 72-year-old pleasant white male who was admitted to the hospital with acute upper GI bleed. He had an upper endoscopy done yesterday by me which showed 1 cm nonbleeding duodenal bulbar ulcer and some gastritis. The patient has been on Protonix 40 mg twice daily. He was on Eliquis that was started about a month ago for atrial fibrillation, which has been on hold. This morning he is feeling better on a regular diet, tolerating well. No further episodes of black tarry stools. He denies any abdominal pain, nausea, vomiting. PHYSICAL EXAMINATION: He appears comfortable, in no apparent distress. VITAL SIGNS: Stable. Blood pressure is 121/70, pulse is 78, temperature 97.6. HEENT examination is unremarkable. Conjunctivae pink. Oral cavity, no lesions. NECK: No jugular venous distention or lymph node enlargement. CHEST: Clear to auscultation. HEART: Regular rate and rhythm. ABDOMEN: Soft. Bowel sounds are positive. No organomegaly. EXTREMITIES: No pedal edema. SKIN: No rashes. NEURO: Alert and oriented x3. No focal deficits. LAB: From this morning, hemoglobin is 9, WBC 7, platelets are 180. BUN and creatinine are within normal limits. IMPRESSION: Acute upper GI bleed secondary to duodenal bulbar ulcer noted on upper endoscopy yesterday. Presently on IV Protonix 40 mg q.12 hours. Last hemoglobin 9.1 g/dL and stable. RECOMMENDATION: 1. Continue with Protonix 40 mg b.i.d. 2. Hold oral anticoagulation for another 3-5 days. 3. Avoid NSAIDs. 4. He can be discharged home today with an outpatient follow up in 3-4 weeks. MMODL / IJN: [id number] /
== END 2017-07-06 09:54 | disposition home or self-care (01) | DRG 378 ==
LOC: EC 10:46 → 6SEL 13:22
PROVIDERS: ADMIT Internal Medicine; ATTEND Internal Medicine
PROC: 0DB68ZX Excision of Stomach, Via Natural or Artificial Opening Endoscopic, Diagnostic (ICD-10-PCS; principal; 2017-07-05 08:25)
DX: K26.4 Chronic or unspecified duodenal ulcer with hemorrhage (principal); D62 Acute posthemorrhagic anemia; I48.1 Persistent atrial fibrillation; I10 Essential (primary) hypertension; K21.9 Gastro-esophageal reflux disease without esophagitis; K29.60 Other gastritis without bleeding; K42.9 Umbilical hernia without obstruction or gangrene; M19.90 Unspecified osteoarthritis, unspecified site; G89.29 Other chronic pain; K57.90 Diverticulosis of intestine, part unspecified, without perforation or abscess without bleeding; K64.9 Unspecified hemorrhoids; M54.5 Low back pain; Z79.01 Long term (current) use of anticoagulants; Z79.899 Other long term (current) drug therapy; Z96.643 Presence of artificial hip joint, bilateral; Z96.653 Presence of artificial knee joint, bilateral; Z87.891 Personal history of nicotine dependence; Z85.828 Personal history of other malignant neoplasm of skin
CPT/HCPCS: 36415; 43239; 74022; 80053; 82550; 82553; 83735; 84484; 85025; 85027; 85610; 85730; 86850; 86900; 86901; 88305; 88342; 93005; 96361; 96374; 99285

== ENCOUNTER → 2018-12-22 | Outpatient (CLI) | payer MEDICARE ==
[2018-12-22 14:52] LABS: HCT 46.7 % (39.0-53.0); HGB 15.3 gm/dL (13.0-17.5); MCH 32.3 pg (25.0-35.0); MCHC 32.8 g/dL (31.0-37.0); MCV 98.6 fL (80.0-100.0); Mean Platelet Volume 8.5; Platelet Count 221 k/uL (150-450); RBC 4.74 m/uL (4.30-5.90); RDW 14.9 % (11.5-15.5); WBC 7.2 k/uL (3.8-10.6)
[2018-12-22 16:15] LABS: Erythrocyte Sedimentation Rate 5 mm/hr (0-15)
== END | disposition home or self-care (01) ==
LOC: LABWHC1 13:24
PROVIDERS: ATTEND Orthopaedic Surgery
DX: M19.071 Primary osteoarthritis, right ankle and foot (principal); I10 Essential (primary) hypertension; R60.9 Edema, unspecified; M20.21 Hallux rigidus, right foot; Z98.890 Other specified postprocedural states
CPT/HCPCS: 36415; 83520; 85027; 85652; 86140

== ENCOUNTER → 2018-12-24 | Outpatient (CLI) | payer MEDICARE ==
--- NOTE | 2018-12-24 14:59 | CT ---
EXAMINATION TYPE: CT foot RT wo con DATE OF EXAM: 12/24/2018 COMPARISON: None. HISTORY: Right foot pain, primary osteoarthritis, hallux rigidus, patient is status post first MTP ar throdesis June 19, 2018 with broken plate and possible nonunion per order. CT DLP: 199.60 mGycm Automated exposure control for dose reduction was used. FINDINGS: There is dorsal fixating plate at the first metatarsal phalangeal joint which is fractured mid aspect seen best on sagittal image 45. There is persistent hallux valgus deformity of first metatarsophalan geal joint. There is fairly advanced joint space loss at this level with mild spurring. There is clint tional fixating screw going through medial base first proximal phalanx through the first metatarsal h ead terminating along the lateral distal diaphysis first metatarsal. Osseous structures are demineralized. There is valgus positioning second through fourth metatarsal ph alangeal joints. There is marked flexion second through fifth toes. There is mild diffuse subcutaneou s edema most prominent along the plantar surface. Lisfranc joints are maintained. Normal sinus tarsi fat is seen. IMPRESSION: ABOVE
== END | disposition home or self-care (01) ==
LOC: RADCTMAIN 12:25
PROVIDERS: ATTEND Orthopaedic Surgery
DX: R60.0 Localized edema (principal)

== ENCOUNTER 2019-01-07 06:24 | Day surgery (SDC) | payer MEDICARE ==
[2019-01-02 11:29] VITALS: BMI 36.2
[~2019-01-07 06:24] MED LIST changes: -ACETAMINOPHEN TAB 500 MG TAB PO ONE; -DEXAMETHASONE SOD PHOSPHATE 10 MG/ML 1 ML VIAL IV ONE; -HYDROmorphone 0.5 MG/0.5 ML SYRINGE IVP PRN; -MELOXICAM 7.5 MG TAB PO ONE; -MIDAZOLAM 2 MG/2 ML VIAL IV PRN; -ONDANSETRON 4 MG/2 ML VIAL IVP ONE; -TRANEXAMIC ACID 1,000 MG in SODIUM CHLORIDE 0.9% 100 ML IVPB ONE; -ceFAZolin 2 GM in SODIUM CHLORIDE 0.9% 100 ML IVPB ONE; +ceFAZolin IN SWFI 2 GM/20 ML SYRINGE IVP ONE
[2019-01-07] MEDS ORDERED: ONDANSETRON 4 MG/2 ML VIAL IVP ONE (06:29)
[2019-01-07] MEDS ORDERED: SCOPOLAMINE 1.5MG/72HR PATCH TRANSDERM ONE (06:29)
[2019-01-07] MEDS ORDERED: MIDAZOLAM 2 MG/2 ML VIAL IV PRN (06:29)
[2019-01-07] MEDS ORDERED: LACTATED RINGERS 1,000 ML IV SCH (06:29)
[2019-01-07] MEDS ORDERED: DEXAMETHASONE SOD PHOSPHATE 10 MG/ML 1 ML VIAL IV ONE (06:29)
[2019-01-07] MEDS ORDERED: LIDOCAINE 1% 20 ML VIAL (10MG/ML) FOR IV START INTRADERMA PRN (06:29)
[2019-01-07] MEDS ORDERED: LACTATED RINGERS 1,000 ML IV ONE ×2 (06:45→09:22)
[2019-01-07] MEDS ORDERED: GLYCOPYRROLATE 0.2 MG/ML 2 ML VIAL ONE (07:57)
[2019-01-07] MEDS ORDERED: SUCCINYLCHOLINE CHLORIDE 100 MG/5 ML SYR IV ONE (07:57)
[2019-01-07] MEDS ORDERED: MIDAZOLAM 2 MG/2 ML VIAL ONE (07:57)
[2019-01-07] MEDS ORDERED: fentaNYL (PF) 50 MCG/ML 2 ML AMP ONE (07:57)
[2019-01-07] MEDS ORDERED: LIDOCAINE 1% INJ 10MG/ML (20 ML MDV) ONE (07:57)
[2019-01-07] MEDS ORDERED: ROCURONIUM BROMIDE 10 MG/ML 10 ML VIAL IV ONE (07:57)
[2019-01-07] MEDS ORDERED: NEOSTIGMINE 1 MG/ML 10 ML VIAL ONE (07:57)
[2019-01-07] MEDS ORDERED: PROPOFOL 10 MG/ML 20 ML VIAL IV ONE (07:57)
[2019-01-07] MEDS ORDERED: KETOROLAC 30 MG/ML 1 ML VIAL ONE (07:57)
--- NOTE | 2019-01-07 09:26 | P.OP ---
Date of Procedure: 01/07/19 Preoperative Diagnosis: 1. Right hallux rigidus with nonunion of first MTP joint fusion Postoperative Diagnosis: 1. Aseptic nonunion right first MTP fusion Procedure(s) Performed: 1. Right first MTP implant arthroplasty 2. Hardware removal deep, right foot Implants: Size 10 mm Cartiva implant Anesthesia: GETA Surgeon: Stevie House Wafer Cleaner #1: Neena Ward Estimated Blood Loss (ml): 5 IV fluids (ml): 500 Pathology: none sent Condition: stable Disposition: PACU Indications for Procedure: The patient is very pleasant previously healthy 73-year-old male who underwent a first MTP fusion in June 2018. He did well in the initial perioperative period with no complications. Over the last several months he has had increasing pain and swelling particularly when golfing. He came back to the office where x-rays showed a broken plate. He was sent for a computed tomography scan which showed a nonunion of the fusion site. He had baseline inflammatory labs to rule out deep infection as a potential cause of the nonunion which were all normal. We discussed treatment options including observation with a Herrera's extension and stiff soled rocker-bottom shoes versus revision surgery. The patient had significant pain and difficulty golfing and requested surgery. We discussed the historical gold standard is revision fusion with bone grafting and a period of nonweightbearing. We also discussed that recent orthopedic literature has supported use of a Cartiva implant and moderate to severe hallux rigidus with outcomes comparable to fusion at 5 years. We discussed that there is little literature supporting its use in this particular indication but it may be a viable option given the patient's age and activity level. After discussing both options the patient opted for implant arthroplasty using Cartiva. He understands the potential limitations with this. We discussed potential risks and complications of surgery including but not limited to risk of anesthesia, superficial infection, deep infection, delayed wound healing, superficial wound necrosis, deep wound necrosis, intraoperative fracture, postoperative fracture, failure of surgery requiring revision fusion, DVT, PE, generalized dissatisfaction with surgical outcome, DVT, PE, other medical complications, and possibly loss of life or limb. The patient voiced his understanding of this and provided his verbal and written consent to go forward with surgery. Operative Findings: There is a gross nonunion of the fusion site with no bony bridging. There is no evidence of deep infection. Description of Procedure: The patient was identified in preoperative holding and the correct right foot was marked with my initials. I reviewed the consent form with the patient and his sister. All of their questions were answered. The patient was then brought back to the operating room by anesthesia. He was positioned on the OR table where a general anesthetic and preoperative antibiotics were administered. All bony prominences were well-padded. A tourniquet was applied to the proximal aspect of the right thigh. The right leg was then prepped and draped in standard sterile fashion. Prior to starting surgery timeout was performed identifying the correct patient, operative extremity, and procedure. The patient's leg was then elevated, exsanguinated with an Esmarch bandage, and the tourniquet was inflated to 275 mmHg. I began by outlining the prior surgical scar over the dorsal aspect of the first MTP joint. Skin incision was made with a scalpel and dissection was carried down through the subcutaneous tissue to the EHL tendon sheath. The tendon sheath was incised longitudinally in line with the skin incision and the tendon was retracted medially. The capsule was elevated directly over the plate. All of the screws were sequentially removed followed by the plate. It was passed off to the back table to be processed. There was no evidence of deep infection. There was no healing of the fusion site. The joint was circumferentially exposed to allow access to the first metatarsal head. A limited cheilectomy was performed using a rongeur. The bone of the first metatarsal head appeared to be intact and able to accommodate the implant. The sizing guide was placed centered over the first metatarsal head and a K wire was driven through the guide into the metatarsal. An appropriately sized cannulated reamer was placed over the K wire and used to create a cavity for the implant. The K wire and reamer were removed. On inspection of the vault it appeared to have a nice bony rim. The wound was thoroughly irrigated. The implant was then press-fit into the cavity. The implant sat 2-3 mm proud. The joint was brought through range of motion and there was no impingement. Final fluoroscopic images were taken. The wound was thoroughly irrigated. The capsule was closed with a running 2-0 Vicryl. The deep subcu was reapproximated using 3-0 Monocryl. The skin was closed using 3-0 nylon horizontal mattress stitches followed by Brown quarter inch stretchy Steri-Strips. 10 mL's of half percent Marcaine was injected around the incision. I verified that all instrument, sponge, and sharp counts were correct. A sterile dressing consisting of Betadine soaked Adaptic, 4 x 4, and web roll was applied. The patient was placed into a tall boot after the drapes were taken down. He was extubated, transferred to a gurney, and brought to recovery of up out of the procedure well. Neena Ward PA-C was required as a skilled assistant coach for patient positioning, surgical exposure, placement of implant, closure of wound, and application of dressing. Plan: The patient is going to discharge home as an outpatient. He is to leave his surgical dressing on for 2 days and then he can change the dressing. He can shower but should avoid soaking the incision after 2 days. He can heel weight- bear in a tall boot. He will follow-up in 2 weeks for soft tissue check.
[2019-01-07 09:42] VITALS: RESP 16; TEMP 97.4
[2019-01-07] MEDS: HYDROmorphone 0.5 MG/0.5 ML SYRINGE IVP PRN ×2 (09:44→10:00)
--- NOTE | 2019-01-07 09:55 | FL ---
Fluoroscopy HISTORY: Hardware removal 1 second fluoroscopy time supplied to the referring clinician. 1 intraoperative C-arm images documen t the procedure. See dictated report from orthopedic surgery.
--- NOTE | 2019-01-07 10:01 | XR ---
Limited right foot HISTORY: Hardware removal Intraoperative C-arm image documents the procedure.
[2019-01-07 11:00] VITALS: BP 147/89; PULSE 71
== END 2019-01-07 11:29 | disposition home or self-care (01) ==
LOC: OR 06:24
PROVIDERS: ATTEND Orthopaedic Surgery
DX: M96.0 Pseudarthrosis after fusion or arthrodesis (principal); M20.21 Hallux rigidus, right foot; K21.9 Gastro-esophageal reflux disease without esophagitis; I48.2 Chronic atrial fibrillation; I70.8 Atherosclerosis of other arteries; I10 Essential (primary) hypertension; M15.9 Polyosteoarthritis, unspecified; E66.9 Obesity, unspecified; Z68.36 Body mass index [BMI] 36.0-36.9, adult; I34.0 Nonrheumatic mitral (valve) insufficiency; E78.00 Pure hypercholesterolemia, unspecified; N40.0 Benign prostatic hyperplasia without lower urinary tract symptoms; Z87.891 Personal history of nicotine dependence; Z79.01 Long term (current) use of anticoagulants; Z79.899 Other long term (current) drug therapy
CPT/HCPCS: 73620; 28291; C1713; J2250; J1100; J2710; J2405; J2001; J3010; J1885; J0330; J2704; J1170; J0690

== ENCOUNTER → 2019-07-16 | Outpatient (CLI) | payer MEDICARE ==
[2019-07-16 10:50] LABS: Chol/HDL Ratio 3.21
== END ==
LOC: LABWHC1 07:30
PROVIDERS: ATTEND Internal Medicine Cardiovascular Disease
DX: E78.2 Mixed hyperlipidemia (principal)
CPT/HCPCS: 36415; 80061; 84450; 84460

== ENCOUNTER → 2020-08-23 | Outpatient (CLI) | payer MEDICARE ==
[2020-08-23 20:14] LABS: Chol/HDL Ratio 2.24; LDL Cholesterol,Calculated 62.2 mg/dL (0.0-131.0); VLDL Calculation 19.8 mg/dL (5.00-40.00)
== END | disposition home or self-care (01) ==
LOC: LABWHC1 08:10
PROVIDERS: ATTEND Internal Medicine Cardiovascular Disease
DX: E78.2 Mixed hyperlipidemia (principal)
CPT/HCPCS: 36415; 80061; 84450; 84460

== ENCOUNTER → 2020-09-06 | Outpatient (CLI) | payer MEDICARE ==
[2020-09-06 15:00] LABS: ALT 33 U/L (10-49); AST 29 U/L (14-35)
== END | disposition home or self-care (01) ==
LOC: LABWHC1 07:58
PROVIDERS: ATTEND Internal Medicine Cardiovascular Disease
DX: I10 Essential (primary) hypertension (principal)
CPT/HCPCS: 36415; 84450; 84460

== ENCOUNTER → 2020-11-23 | Outpatient (CLI) | payer MEDICARE ==
--- NOTE | 2020-11-23 15:47 | XR ---
Right hip HISTORY: Trauma several months prior, pain 2 views the right hip correlated prior exam 10/31/2012 Patient shows right hip arthroplasty change. There is anatomic alignment. There are likely vascular c alcifications within the soft tissues. Heterotopic new bone formation suspected about the right hip. Possible vascular calcifications within the pelvis IMPRESSION: No evident fracture. Postop changes.
== END | disposition home or self-care (01) ==
LOC: RADXRMAIN 15:05
PROVIDERS: ATTEND Internal Medicine Geriatric Medicine
DX: M25.551 Pain in right hip (principal); Z96.641 Presence of right artificial hip joint
CPT/HCPCS: 73502

== ENCOUNTER → 2021-02-06 | Outpatient (CLI) | payer MEDICARE ==
[2021-02-06 14:58] LABS: Chol/HDL Ratio 2.12; LDL Cholesterol,Calculated 53.6 mg/dL (0.0-131.0); VLDL Calculation 10.4 mg/dL (5.00-40.00)
== END | disposition home or self-care (01) ==
LOC: LABWHC1 09:03
PROVIDERS: ATTEND Internal Medicine Cardiovascular Disease
DX: E78.2 Mixed hyperlipidemia (principal)
CPT/HCPCS: 36415; 80061; 84450; 84460

== ENCOUNTER → 2021-03-02 | Outpatient (CLI) | payer MEDICARE ==
--- NOTE | 2021-03-02 16:44 | MR ---
EXAMINATION TYPE: MR lumbar spine wo con DATE OF EXAM: 03/02/2021 COMPARISON: None HISTORY: LBP, radiates down right leg x 2 yrs. No hx trauma/surgery. TECHNIQUE: Multiplanar, multisequence images of the lumbar spine were acquired. L1-L2: Posterior extension endplate disc complex causes anterior mass effect on the thecal sac, some mild to moderate central stenosis. Circumferential extension endplate disc complex results in some ri ght foraminal encroachment. There is some facet arthropathy change. L2-L3: Posterior disc bulge causes anterior mass effect on the thecal sac, there is moderate to sever e central stenosis. Facet arthropathy change causes some posterior lateral mass effect on the thecal sac, circumferential extension endplate disc complex causes some encroachment on the inferior aspect of the neural foramina. L3-L4: Posterior broad-based disc bulge causes anterior mass effect on the thecal sac, there is moder ate central canal stenosis. Circumferential extension of endplate disc complex contributed by the sco liosis results in some foraminal encroachment inferior margin of the left neural foramen. There is hy pertrophic change of the facets. L4-L5: Listhesis contributes with a left posterior paracentral disc bulge causes some mild spinal duran nosis, is anterolateral mass effect on the thecal sac eccentric towards the left from the midline. Fa cet arthropathy is noted. No definite foraminal encroachment. L5-S1: There is a posterior broad-based disc bulge present causing contact with the anterior thecal s ac, possibly Gamal nerve roots. Circumferential extension endplate disc complex encroaches upon the inferior aspect of the neural foramen on the right, there is facet arthropathy present. No significa nt spinal stenosis. Lumbar segments are intact. There is a spinal curvature as noted on plain film, S-shaped thoracic lum bar scoliosis. There is multilevel spondylosis. Anterolisthesis grade 1 L4-5 noted. Endplate discogen ic marrow signal changes are present, there is loss of disc height signal greatest at L5-S1, L1-2. [place] mbar vertebral bodies show preserved height. No paraspinal masses are identified. Conus medullaris has a normal appearance. Infrarenal abdominal aortic aneurysm is present measuring 2.9 cm. 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 IMPRESSION: Degenerative disc disease, facet arthropathy, spinal stenosis and multilevel foraminal encroachment. Infrarenal abdominal aortic aneurysm. Scoliosis.
== END | disposition home or self-care (01) ==
LOC: RADMRIMAIN 07:41
PROVIDERS: ATTEND Orthopaedic Surgery Orthopaedic Surgery of the Spine
DX: M48.07 Spinal stenosis, lumbosacral region (principal); M47.816 Spondylosis without myelopathy or radiculopathy, lumbar region; M47.817 Spondylosis without myelopathy or radiculopathy, lumbosacral region; M25.78 Osteophyte, vertebrae; M41.86 Other forms of scoliosis, lumbar region; M43.17 Spondylolisthesis, lumbosacral region; M43.16 Spondylolisthesis, lumbar region; M51.37 Other intervertebral disc degeneration, lumbosacral region; M47.897 Other spondylosis, lumbosacral region; M51.17 Intervertebral disc disorders with radiculopathy, lumbosacral region; E66.9 Obesity, unspecified; I71.4 Abdominal aortic aneurysm, without rupture
CPT/HCPCS: 72148

== ENCOUNTER → 2021-09-28 | Outpatient (CLI) | payer MEDICARE ==
[2021-09-28 08:24] VITALS: BP 133/86; PULSE 81; RESP 18; TEMP 98.6
--- NOTE | 2021-09-28 08:57 | P.CON ---
Consult Note - . Consult date: 09/28/21 Assessment/Plan:: HISTORY OF PRESENT ILLNESS: 76 year old male as a referral from Dr. Perdomo with at side presents for lower back pain radiating to the right hip for pain management. Patient states that he has been suffering with this pain for many years, that the pain waxes and wanes in intensity but currently is a 3 out of 10, dull and achy in the lower lumbar spine with sharp radiating pain towards his right hip and groin. Patient states he has underwent many epidural and nerve block procedures and has been referred for an RFA procedure currently. Patient states that the nerve blocks have been 75% effective but the pain started to return after 2 days. Pain is provoked with standing for periods of 30 minutes or more, lifting or squatting. Pain is relieved with medications, topicals, injections, heat, phys ical therapy, a home exercise regimen, repositioning and rest. Past Medical History: Atrial Fibrillation, Cancer, GERD/Reflux, Hypertension, Osteoarthritis (OA) Additional Past Medical History / Comment(s): Recently diagnosed with Afib, chronic low back pain, diverticular dx, vertigo at times, sinus problems, hemorrhoids, hx skin cancer removal, past several finger fractures. 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 Past Anesthesia/Blood Transfusion Reactions: No Reported Reaction Additional Past Anesthesia/Blood Transfusion Reaction / Comment(s): never had a blood transfusion Smoking Status: Former smoker All: NKDA Meds: See list REVIEW OF ORGAN SYSTEMS: CONSTITUTIONAL: No fevers or chills. No recent weight loss. HEENT: No visual acuity loss, eye pain, difficulties with hearing. No nosebleeds. No difficulty swallowing. RESPIRATORY: Denies any troubles with breathing or dyspnea on exertion. CARDIOVASCULAR: Denies any chest pain, palpitations, or recent heart attacks. GASTROINTESTINAL: Denies fatty food intolerance. Has change in bowel habits and gas bloat. GENITOURINARY: Denies any blood in urine. Has increased urinary frequency. NEUROLOGICAL: + numbness and tingling along the distal extremities. No seizure disorders or headaches. MUSCULOSKELETAL: + back pain SKIN: No skin cancer. No rash. PSYCHIATRIC: Denies current depression or suicidal thoughts. ENDOCRINE: Denies current thyroid disorders. Denies any blood sugar glucose intolerance. HEME/LYMPHATIC: Denies any lumps and bumps around the neck. History of deep venous thrombosis. ALLERGY/IMMUNOLOGY: No immunoglobulin therapy. No immune deficiencies. BREAST: Denies current breast lumps, pain or nipple discharge. Physical Examinations : Constitutional : Cooperative , not in acute distress . HEENT: Neck supple. No Lymphadenopathy. Normal thyroid size . Eyes no ptosis , no icterus, no photophobia . Hearing intact. Normal oropharynx. No Thrush. Respiratory : Chest clear to auscultations bilaterally. No wheezing. No rhonchi. Cardiovascular : Regular rate and rhythm , S1 / S2. No S3 . No S4. Gastrointestinal : Abdomen soft. No tenderness. Bowel sounds x 4. No organomegaly . Genitourinary : Deferred. Neurologic : Cranial nerve II to XII intact. No focal neurological deficits. Psychiatric : alert & oriented x 3. Matching mood & appropriate affect. Judgment & insight intact. Lymphatic No Lymphadenopathy. Musculoskeletal : Cervical Spine Motor strength in the deltoid and biceps: Normal right side. Normal Left side Motor strength biceps and the wrist extensors: Normal right side . Normal left side Motor strength in the triceps muscle: Normal right side. Normal left side Deep tendon reflexes: Normal at the biceps. Normal at Brachioradialis. Normal at triceps Cervical facet loading test: positive bilaterally Spurling test: positive bilaterally Neck distraction test: positive bilaterally Dl sign: positive bilaterally Lumbar spine Motor strength lower extremities ,thigh and legs 5/5 Right side , 5/5 Left side Deep tendon reflexes : Normal Knee Jerk. Normal Ankle Jerk Lumbar facet Loading Test: positive Right / positive Left Range of motion of the lumbar spine Flexion 45 degrees, extension 10 degrees Straight Leg Raise test: Left/ Right positive at <40 degree Nickie test: positive right / positive left. 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 Ashford Re: Eliquis Risks benefits of procedure discussed and patient verbalized understanding All questions answered I have spent greater than 50 minutes on patient care today. Dr Sigala was available by phone for the evaluation of this patient. The time was used to review the medical records including relevant urine studies and Prescription history (MAPs), review of the available imaging, evaluation and examination of the patient, coordination of care with the medical staff and if applicable referring physicians, as well as creation of the medical record PQRS Measure Charge Sheet Mode of Arrival: Ambulatory - Pain Location Lower Back Non-Pharmacological Interventions: Chiropractic Treatment, Heat, Home Exercise, Inactivity, Physical Therapy, Stretching Pharmacological Interventions: Block, Medication, PRN Medication, Topical Medication PQRS Narrative: Smoking Status Former smoker Blood Pressure 133/86 Pain Intensity [Lower Back] 3 Pain Intensity [Right Groin] 4 Scale Used Numeric (1 - 10) Hx Alcohol Use (MH) No Home Medications: Ambulatory Orders Atenolol 100 mg PO DAILY 01/20/14 Diltiazem Cd [Cardizem CD] 300 mg PO DAILY 01/20/14 Apixaban [Eliquis] 5 mg PO BID #60 tab 05/29/17 Loratadine [Claritin] 10 mg PO DAILY 01/02/19 Omeprazole 20 mg PO DAILY PRN 01/02/19 Acetaminophen/Diphenhydramine [Tylenol Pm Ex-Strength Caplet] 2 each PO DIRECTED PRN 09/22/21 Atorvastatin [Lipitor] 20 mg PO DAILY 09/22/21 HYDROcodone/APAP 5-325MG [[place] 5-325] 1 tab PO TID PRN 09/22/21 Multivit-Min/Folic/Vit K/Lycop [Men's Multivitamin Tablet] 1 each PO DAILY 09/22/21 New Bp Medication 1 dose PO DIRECTED 09/22/21
== END | disposition home or self-care (01) ==
LOC: PNWHC3 07:53
PROVIDERS: ATTEND Physician Assistant Medical
DX: M54.50 Low back pain, unspecified (principal)
CPT/HCPCS: 99211

== ENCOUNTER 2021-10-19 06:09 | Day surgery (SDC) | payer MEDICARE ==
[2021-10-18 11:00] VITALS: BMI 32.1
[2021-10-19] MEDS ORDERED: LACTATED RINGERS 1,000 ML IV ONE ×2 (06:31)
[2021-10-19] MEDS ORDERED: LACTATED RINGERS 1,000 ML IV SCH (06:32)
[2021-10-19] MEDS ORDERED: LIDOCAINE 1% (10MG/ML) FOR IV START INTRADERMA PRN (06:32)
[2021-10-19 06:49] VITALS: RESP 16; TEMP 97.4
[2021-10-19] MEDS ORDERED: ROPIVACAINE 5MG/ML 20ML VIAL ONE (06:59)
[2021-10-19] MEDS ORDERED: methylPREDNISolone ACETATE 40 MG/ML 1 ML VIAL ONE (06:59)
[2021-10-19] MEDS ORDERED: fentaNYL (PF) 50 MCG/ML 2 ML AMP ONE (06:59)
[2021-10-19] MEDS ORDERED: MIDAZOLAM 2 MG/2 ML VIAL ONE (06:59)
--- NOTE | 2021-10-19 07:19 | P.PCN ---
Date of Procedure: 10/19/21 Procedure(s) Performed: PREOPERATIVE DIAGNOSIS: 1-Lumbar Spondylosis with Facet Arthropathy without myelopathy. 2- Lumber degenerative disc disease. POSTOPERATIVE DIAGNOSIS: 1- Lumbar Spondylosis with Facet Arthropathy without myelopathy. 2- Lumber degenerative disc disease. PROCEDURES : Right Radiofrequency thermocoagulation, L3 , L4 , and L5 medial branch, with fluoroscopic guidance (fluoroscopy images available in the radiology department) ( to denervate the facet joint at Right L4-5 ,and L5-S1 levels ). ANESTHESIA: Moderate sedation with intravenous versed 1 mg and fentaneyl 100 mcg, and local infiltration with Ropivacaine 0.5 % . EBL: Minimal PROCEDURE INDICATION: The patient with low back pain secondary to lumbar facet arthropathy who had more than 50% relief of her pain with previous diagnostic lumbar medial branch block with bupivacaine. PROCEDURE DESCRIPTION / TECHNIQUE: The patient was seen and identified in the preoperative area. Risks, benefits, complications, including but not limited to risk of infection ,bleeding , allergic reactions to the medications and no complete pain releife , and alternatives were discussed with the patient, the patient agreed to proceed with the procedure and signed the consent. IV was started. Vital signs remained stable throughout the procedure. Patient was taken to the OR and time out was completed. The patient was placed in the prone position on the procedure table. The lumber area was prepped and draped in the usual sterile fashion. . Vital signs were closely monitored during the procedure .IV sedation was used during the procedure to decrease patients anxiety. Using AP and then oblique fluoroscopy, the ``eye of the Alexandre dog corresponding to the connection between the superior and transverse articular processes of right L3, L4, and L5 were identified, marked, and localized with 1% lidocaine. Subsequently, a 18 linio360-[id number] radiofrequency cannula with a 10- mm active tip was advanced guided by fluoroscopy to each of the``eyes of the Alexandre dog at right L3, L4, and L5. Each site then underwent sensory testing at 50 Hz and 0 to 1 volt and motor testing at 2.5 Hz and 0 to 3 volt with local stimulation, but no radicular symptoms down the legs. Thereafter each s ites underwent radiofrequency thermocoagulation at 80 degrees celsius for 90 seconds after injecting 0.5 ml of PF Ropivacaine 1ml, then after the thermocoagulation done , 1 ml of the block solution containing Depo-Medrol 40 mg and 3 ml of Ropivacaine 0.5% was injected at the right L3 , L4 , and L5 , levels after negative aspiration of CSF and blood and with no paresthesias. Cannulas were retracted while injecting lidocaine 1% until the needle is out. . At the end of the procedure, the skin was cleansed and bandages were applied. COMPLICATIONS: No acute complications. DISPOSITION / PLANS: The patient was placed in a supine position and transferred to the recovery area in a stable condition for observation and was discharged from the recovery room after meeting discharge criteria. Home discharge instructions given to the patient by the staff. The patient was reexamined prior to discharge. The patient will schedule a follow up in the clinic in 2-4 weeks.
[2021-10-19] MEDS ORDERED: IV FLUID CONTINUATION 800 ML IV ONE (07:23)
[2021-10-19 07:26] VITALS: PULSE 83
[2021-10-19 07:40] VITALS: BP 142/89
--- NOTE | 2021-10-19 08:24 | FL ---
Fluoroscopy HISTORY: Pain 7 seconds fluoroscopy time supplied to the referring clinician. 3 intraoperative C-arm images docume nt the procedure. See dictated report from anesthesia.
== END 2021-10-19 08:08 | disposition home or self-care (01) ==
LOC: ORPAIN 06:09
PROVIDERS: ATTEND Specialist
DX: M47.816 Spondylosis without myelopathy or radiculopathy, lumbar region (principal); M51.36 Other intervertebral disc degeneration, lumbar region
CPT/HCPCS: 64635; 64636; J2250; J1030; J3010; J2795; 99152

== ENCOUNTER 2021-12-13 01:26 | Inpatient (IN) | payer MEDICARE ==
--- NOTE | 2021-12-13 01:46 | XR ---
EXAMINATION TYPE: XR chest 1V DATE OF EXAM: 12/13/2021 COMPARISON: 07/04/2017 HISTORY: Altered mental status TECHNIQUE: 2 views AP FINDINGS: Heart is borderline enlarged. No obvious heart failure. There is some coarsening of the int erstitial markings. No pleural effusion. Bony thorax appears intact. IMPRESSION: Mild pulmonary fibrotic changes appear increased compared to old exam. No heart failure s een.
--- NOTE | 2021-12-13 01:49 | CT ---
EXAMINATION TYPE: CT brain wo con for TPA DATE OF EXAM: 12/13/2021 COMPARISON: None HISTORY: code stroke CT DLP: 1857.1 mGycm Automated exposure control for dose reduction was used. Images obtained of the brain without contrast. There is cerebral cortical atrophy. There is hypodensity in the periventricular white matter. There i s no mass effect or midline shift. There is no sign of intracranial hemorrhage. Calvarium is intact. There is normal aeration of the mastoid sinuses. There is some mucosal thickening in the ethmoid and sphenoid sinuses. There is mild maxillary sinus mucosal thickening. IMPRESSION: Cerebral atrophy and chronic small vessel ischemia. No acute intracranial abnormality. Mild sinusitis .
[2021-12-13 01:50] LABS: Glucose,Whole Blood 126 mg/dL (75-99)
[2021-12-13 01:59] LABS: Basophils % (A) 1 %; Eosinophils % (A) 1 %; HCT 41.6 % (39.0-53.0); HGB 13.8 gm/dL (13.0-17.5); Lymphocytes % (A) 16 %; MCH 33.7 pg (25.0-35.0); MCHC 33.2 g/dL (31.0-37.0); MCV 101.6 fL (80.0-100.0); Macrocytosis Slight; Mean Platelet Volume 8.9; Monocytes # (A) 0.5 k/uL (0-1.0); Monocytes % (A) 9 %; Neutrophils # (A) 4.3 k/uL (1.3-7.7); Neutrophils % (A) 71 %; Platelet Count 142 k/uL (150-450); WBC 6.1 k/uL (3.8-10.6)
[2021-12-13 02:10] LABS: INR 1.1 (<1.2); Prothrombin Time 12.1 sec (9.0-12.0)
[2021-12-13 02:18] LABS: ALT 14 U/L (4-49); AST 26 U/L (17-59); African American GFR (CKD) >90 (>60 ml/min/1.73 sqM); Albumin 3.6 g/dL (3.5-5.0); Alkaline Phosphatase 71 U/L (38-126); Anion Gap 8 mmol/L; Blood Urea Nitrogen 22 mg/dL (9-20); Calcium 8.9 mg/dL (8.4-10.2); Carbon Dioxide 24 mmol/L (22-30); Chloride 103 mmol/L (98-107); Glucose 129 mg/dL (74-99); Non-African American GFR(CKD) 83 (>60 ml/min/1.73 sqM); Potassium 4.3 mmol/L (3.5-5.1); Sodium 135 mmol/L (137-145); Total Bilirubin 0.7 mg/dL (0.2-1.3); Total Protein 6.6 g/dL (6.3-8.2)
--- NOTE | 2021-12-13 02:23 | CT ---
EXAMINATION TYPE: CT angio head neck DATE OF EXAM: 12/13/2021 COMPARISON: None HISTORY: code stroke CT DLP: 1857.1 mGycm Automated exposure control for dose reduction was used. CONTRAST: Performed with IV Contrast, patient injected with 65 mL of Isovue 370. Images obtained from the aortic arch to the vertex of the brain with IV contrast. There are Three-D p ostprocessed images. There is normal branching pattern of the great vessels on the aortic arch. There is arterial flow in both subclavian arteries. There is arterial flow in the common internal and external carotid arteries bilaterally. Air is arterial flow in both vertebral arteries. There is calcified plaque formation at both carotid artery bifurcations. There is approximate 30% stenosis at the origins of both internal carotid arteries. There is no evidence of carotid or vertebral artery aneurysm or dissection. There is arterial flow in the vertebrobasilar artery system. There is arterial flow in the anterior m iddle and posterior cerebral arteries bilaterally. No mass effect. No evidence of intracranial aneury sm or neovascularity. There is normal enhancement of the venous sinuses. IMPRESSION: Negative CT angiogram of the brain. Plaque formation and approximate 30% stenosis at the origins of both internal carotid arteries.
[2021-12-13] MEDS ORDERED: NITROGLYCERIN OINT 1 INCH/GM PACKET TOPICAL STA (03:32)
[2021-12-13] MEDS ORDERED: dexAMETHasone 2 MG TAB PO STA (04:11)
[2021-12-13] MEDS ORDERED: ACETAMINOPHEN TAB 325 MG TAB PO PRN (04:11)
[2021-12-13] MEDS ORDERED: MAG HYDROX/AL HYDROX/SIMETH 30 ML CUP PO PRN (04:11)
[2021-12-13] MEDS ORDERED: NALOXONE 0.4 MG/ML 1 ML VIAL IV PRN (04:11)
[2021-12-13] MEDS ORDERED: SODIUM CHLORIDE 0.9% 1,000 ML IV SCH (04:15)
--- NOTE | 2021-12-13 04:25 | ED ---
Neuro HPI - General Chief Complaint: Neuro Symptoms/Deficit Stated Complaint: code alteplase Source: patient, EMS Mode of arrival: EMS - History of Present Illness Is the patient presenting with stroke symptoms?: Yes Last Known Well Date: 12/12/21 Last Known Well Time: 23:00 -: hour(s) Initial Comments: This patient is 76-year-old man who presents to be evaluated for left sided weakness and difficulty with speech. The patient had been seen normal by his at approximately 11 PM. She then noticed that he was appearing confused, having difficulty moving his left side and was not able to speak, around 12:30. She phoned EMS who brought the patient here. EMS noted that the patient was standing but not able to follow their directions. He seemed to not be able to lift his left leg onto the stretcher. The patient's recent history is notable for having tested positive for coronavirus on Saturday morning. Location: speech, left arm, left leg History of same: No Place: home Severity: moderate Quality: weak Improves With: none Worsens With: none Context: sudden onset Associated Symptoms: denies other symptoms - Related Data Home Medications: Home Medications Medication Instructions Recorded Confirmed Atenolol 100 mg PO DAILY 01/20/14 12/13/21 Diltiazem Cd [Cardizem CD] 300 mg PO DAILY 01/20/14 12/13/21 Omeprazole 20 mg PO DAILY 01/02/19 12/13/21 Atorvastatin [Lipitor] 20 mg PO DAILY 09/22/21 12/13/21 Multivit-Min/Folic/Vit K/Lycop 1 tab PO DAILY 09/22/21 12/13/21 [Men's Multivitamin Tablet] lisinopriL [Zestril] 20 mg PO DAILY 10/18/21 12/13/21 Fluorouracil [Efudex] 1 applic TOPICAL BID 12/13/21 12/13/21 HYDROcodone/APAP 7.5-325MG [[place] 1 tab PO TID PRN 12/13/21 12/13/21 7.5-325] Hydrocortisone Cream 1 applic TOPICAL DAILY 12/13/21 12/13/21 [Hydrocortisone 2.5% Cream] Ibuprofen [Motrin] 800 mg PO TID PRN 12/13/21 12/13/21 Nirmatrelvir/Ritonavir [Paxlovid 3 tab PO DIRECTED 12/13/21 12/13/21 Co-Pack (Eua)] Previous Rx's Medication Instructions Recorded Apixaban [Eliquis] 5 mg PO BID #60 tab 05/29/17 Allergies/Adverse Reactions: Allergies Allergy/AdvReac Type Severity Reaction Status Date / Time No Known Allergies Allergy Verified 12/13/21 06:47 Review of Systems ROS Statement: Those systems with pertinent positive or pertinent negative responses have been documented in the HPI. ROS Other: All systems not noted in ROS Statement are negative. Constitutional: Reports: fever, weakness Respiratory: Reports: cough. Denies: dyspnea Cardiovascular: Denies: chest pain, palpitations, edema, syncope Gastrointestinal: Denies: abdominal pain, vomiting, diarrhea Genitourinary: Denies: dysuria, hematuria Musculoskeletal: Denies: back pain Skin: Denies: rash Neurological: Reports: weakness. Denies: headache, numbness General Exam General appearance: alert, in no apparent distress Head exam: Present: atraumatic, normocephalic Eye exam: Present: normal appearance. Absent: scleral icterus, conjunctival injection ENT exam: Present: normal oropharynx Neck exam: Present: normal inspection, full ROM. Absent: meningismus Respiratory exam: Present: rales (There are a few scattered rales bilaterally). Absent: respiratory distress, wheezes, rhonchi, stridor, accessory muscle use, decreased breath sounds, prolonged expiratory Cardiovascular Exam: Present: normal rhythm, irregular rhythm, normal heart sounds. Absent: systolic murmur, diastolic murmur, rubs, gallop GI/Abdominal exam: Present: soft. Absent: distended, tenderness, guarding, rebound, rigid, mass, pulsatile mass, hernia Extremities exam: Present: normal inspection, normal capillary refill. Absent: pedal edema, calf tenderness Back exam: Present: normal inspection. Absent: CVA tenderness (R), CVA tenderness (L) Neurological exam: Present: alert, oriented X3, CN II-XII intact. Absent: motor sensory deficit Skin exam: Present: warm, dry, intact, normal color. Absent: rash Stroke MDM - Lab Data Result diagrams: 12/13/21 01:43 12/13/21 01:43 Lab Results 12/13/21 12/13/21 12/13/21 Range/Units 01:40 01:43 01:43 WBC 6.1 (3.8-10.6) k/uL RBC 4.10 L (4.30-5.90) m/uL Hgb 13.8 (13.0-17.5) gm/dL Hct 41.6 (39.0-53.0) % MCV 101.6 H (80.0-100.0) fL MCH 33.7 (25.0-35.0) pg MCHC 33.2 (31.0-37.0) g/dL RDW 14.0 (11.5-15.5) % Plt Count 142 L (150-450) k/uL MPV 8.9 Neutrophils % 71 % Lymphocytes % 16 % Monocytes % 9 % Eosinophils % 1 % Basophils % 1 % Neutrophils # 4.3 (1.3-7.7) k/uL Lymphocytes # 1.0 (1.0-4.8) k/uL Monocytes # 0.5 (0-1.0) k/uL Eosinophils # 0.0 (0-0.7) k/uL Basophils # 0.0 (0-0.2) k/uL Macrocytosis Slight PT 12.1 H (9.0-12.0) sec INR 1.1 (<1.2) APTT 29.0 (22.0-30.0) sec Sodium (137-145) mmol/L Potassium (3.5-5.1) mmol/L Chloride (98-107) mmol/L Carbon Dioxide (22-30) mmol/L Anion Gap mmol/L BUN (9-20) mg/dL Creatinine (0.66-1.25) mg/dL Est GFR (CKD-EPI)AfAm (>60 ml/min/1.73 sqM) Est GFR (CKD-EPI)NonAf (>60 ml/min/1.73 sqM) Glucose (74-99) mg/dL POC Glucose (mg/dL) 126 H (75-99) mg/dL POC Glu Cupola Melter Helper ID Caroline Nick Calcium (8.4-10.2) mg/dL Total Bilirubin (0.2-1.3) mg/dL AST (17-59) U/L ALT (4-49) U/L Alkaline Phosphatase (38-126) U/L Troponin I (0.000-0.034) ng/mL Total Protein (6.3-8.2) g/dL Albumin (3.5-5.0) g/dL 12/13/21 12/13/21 Range/Units 01:43 01:43 WBC (3.8-10.6) k/uL RBC (4.30-5.90) m/uL Hgb (13.0-17.5) gm/dL Hct (39.0-53.0) % MCV (80.0-100.0) fL MCH (25.0-35.0) pg MCHC (31.0-37.0) g/dL RDW (11.5-15.5) % Plt Count (150-450) k/uL MPV Neutrophils % % Lymphocytes % % Monocytes % % Eosinophils % % Basophils % % Neutrophils # (1.3-7.7) k/uL Lymphocytes # (1.0-4.8) k/uL Monocytes # (0-1.0) k/uL Eosinophils # (0-0.7) k/uL Basophils # (0-0.2) k/uL Macrocytosis PT (9.0-12.0) sec INR (<1.2) APTT (22.0-30.0) sec Sodium 135 L (137-145) mmol/L Potassium 4.3 (3.5-5.1) mmol/L Chloride 103 (98-107) mmol/L Carbon Dioxide 24 (22-30) mmol/L Anion Gap 8 mmol/L BUN 22 H (9-20) mg/dL Creatinine 0.88 (0.66-1.25) mg/dL Est GFR (CKD-EPI)AfAm >90 (>60 ml/min/1.73 sqM) Est GFR (CKD-EPI)NonAf 83 (>60 ml/min/1.73 sqM) Glucose 129 H (74-99) mg/dL POC Glucose (mg/dL) (75-99) mg/dL POC Glu Cupola Melter Helper ID Calcium 8.9 (8.4-10.2) mg/dL Total Bilirubin 0.7 (0.2-1.3) mg/dL AST 26 (17-59) U/L ALT 14 (4-49) U/L Alkaline Phosphatase 71 (38-126) U/L Troponin I <0.012 (0.000-0.034) ng/mL Total Protein 6.6 (6.3-8.2) g/dL Albumin 3.6 (3.5-5.0) g/dL - EKG Data -: EKG Interpreted by Me EKG shows normal: axis, intervals (Normal), QRS complexes (Normal) Rate: tachycardia (Rate 106 bpm) Past Medical History Past Medical History: Atrial Fibrillation, Cancer, GERD/Reflux, Hypertension, Osteoarthritis (OA) Additional Past Medical History / Comment(s): chronic low back pain, right groin pain., diverticular dx,, hx skin cancer ., hx of bleeding stomach ulcer after taking ibuprofen with eliquis., using cane to walk. History of Any Multi-Drug Resistant Organisms: None Reported Past Surgical History: Appendectomy, Joint Replacement, Orthopedic Surgery, Tonsillectomy Additional Past Surgical History / Comment(s): 05/28/17 Total L knee arthroplasy, R total knee, bilateral total hip arthroplasties, bilateral carpal tunnel releases, colonoscopies, basal cell skin cancer.,L foot bone spur with hardware removed and spacer implanted., steroid back injections. Past Anesthesia/Blood Transfusion Reactions: No Reported Reaction Additional Past Anesthesia/Blood Transfusion Reaction / Comment(s): . Past Psychological History: No Psychological Hx Reported Smoking Status: Former smoker - Past Family History Brother(s) Family Medical History: Cancer Mother Family Medical History: Cancer Additional Family Medical History / Comment(s): Mother lived to be 90yrs old. breast cancer Father Family Medical History: No Reported History Additional Family Medical History / Comment(s): Father lived to be in his early 80's. Course Vital Signs 12/13/21 12/13/21 12/13/21 01:28 01:45 02:00 Temperature 98.1 F Pulse Rate 99 98 102 H Respiratory 18 20 20 Rate Blood Pressure 162/89 134/100 135/85 O2 Sat by Pulse 91 L 93 L 93 L Oximetry 12/13/21 12/13/21 12/13/21 02:30 02:41 03:46 Temperature Pulse Rate 95 99 97 Respiratory 20 18 18 Rate Blood Pressure 152/85 144/101 145/108 O2 Sat by Pulse 94 L 95 Oximetry 12/13/21 12/13/21 12/13/21 05:17 05:58 06:01 Temperature Pulse Rate 112 H 112 H 117 H Respiratory 20 20 20 Rate Blood Pressure 158/88 90/66 138/102 O2 Sat by Pulse 95 96 Oximetry 12/13/21 06:31 Temperature 101 F H Pulse Rate Respiratory Rate Blood Pressure O2 Sat by Pulse Oximetry - Reevaluation(s) Reevaluation #1: 12/13/21 07:02 Patient is 76-year-old man who was noted to have strokelike symptoms at home and EMS was called. The patient was triaged directly to computed tomography scan aced on the EMS report. When I saw the patient following CT he appears to be much better than the description. He was able to respond to questions, verbally. He was moving all 4 extremities. The NIH stroke scale was 0. The case was discussed with Dr. Hernandez, from the stroke team and the patient will be admitted to have neurology consultation. Case discussed with sound physician for admission. While the patient was waiting for a bed, he developed increasing rales and rhonchi on the lung exam, became or tachycardic aunt And had hypertension. The patient was given morphine and IV nitroglycerin which did reverse his symptoms and his vital signs improved as well. Disposition Clinical Impression: TIA (transient ischemic attack), Atrial fibrillation, Acute dyspnea, COVID-19 Disposition: ADMITTED IP TO THIS HOSP Condition: Serious Is patient prescribed a controlled substance at d/c from ED?: No
[2021-12-13] MEDS ORDERED: ENALAPRILAT 1.25 MG/ML 1 ML VIAL IVP STA (04:50)
[2021-12-13] MEDS ORDERED: MORPHINE SULFATE 4 MG/ML SYRINGE IV STA (05:21)
[2021-12-13] MEDS ORDERED: NITROGLYCERIN SL TABS 0.4 MG TAB SUBLINGUAL STA (05:21)
--- NOTE | 2021-12-13 05:37 | XR ---
EXAMINATION TYPE: XR chest 1V portable DATE OF EXAM: 12/13/2021 COMPARISON: Today HISTORY: Increased lung crackles. TECHNIQUE: Single view FINDINGS: There is some coarse interstitial density in the mid and lower lung rodriguez. Heart is enlarg ed. No obvious heart failure. There are chest leads. IMPRESSION: Pulmonary fibrotic changes. Cardiomegaly. No change compared to exam 3 hours ago.
[2021-12-13] MEDS ORDERED: NITROGLYCERIN-D5W PMX 50 MG in DEXTROSE/WATER 1 250ML.BAG IV SCH (06:00)
[2021-12-13] MEDS ORDERED: KETOROLAC 15 MG/ML 1 ML VIAL IVP STA (06:28)
[2021-12-13] MEDS ORDERED: MORPHINE SULFATE 4 MG/ML SYRINGE IVP STA (06:32)
[2021-12-13] MEDS: ACETAMINOPHEN TAB 325 MG TAB PO STA ×2 (06:34→06:39)
[2021-12-13] MEDS ORDERED: ACETAMINOPHEN IV (For NPO) 1,000 MG in EMPTY BAG 1 BAG IVPB ONE (06:37)
[2021-12-13] MEDS ORDERED: DEXTROSE 5% IN WATER 100 ML with AMIODARONE 150 MG IV ONE (06:40)
[2021-12-13] MEDS ORDERED: AMIODARONE 360 MG in DEXTROSE 5% IN WATER 200 ML IV ONE ×2 (06:42)
[2021-12-13] MEDS ORDERED: ALBUTEROL HFA INHALER INHALATION PRN (06:55)
[2021-12-13] MEDS ORDERED: LORazepam 2 MG/ML INJ IV PRN ×3 (07:04)
--- NOTE | 2021-12-13 07:23 | P.HPIM ---
History of Present Illness H&P Date: 12/13/21 Chief Complaint: confusion and increase generalized weakness 76 year old male with hypertension , afib on eliquis patient was at his baseline status of health up until this weekend, when he started having upper respiratory symptoms sore throat and some coughing, however, today he was getting increasingly weak and tired, with episodes of confusion , no focal neuro deficits but he seemed to be overall weak and more lethargic. no report of fever, or chills, no report of chest pain , nausea or vomiting, no diarrhea or abd pain. patient is vaccinated and boosted against co vid . tested positive on Saturday (2 days ago ). just before midnights , noticed, increase left sided weakness, confusion and slurred speech, she called EMS and upon their arrival they noted difficulty with left leg, however, he was able to stand up but not follow commands, upon arrival to ED code stroke was initially activated , CT brain was negative, and CTA showed 30% plaque in the carotids. his NIH was low / zero. patient was doing ok initially , case discussed with neuro juvenile court liaison, tested positive for covid , however, was on room air and stable. admitted for monitoring and neuro consult patient denies any tobacco smoking, or drugs, admits to heavy daily alcohol drinking. no recent travel or hospitalization. he complaints of lots of aches and pains in his joints. suddenly, he started having increase work of breathing, with crackles all over his lungs, blood pressure increased. CXR did not show any increase pulmonary edema, however, patient became hypoxic down to mid 80s%, started on Bipap. and nitro drip to control his blood pressure . later, he went into afib with RVR, so he was transitioned to amiodarone , and to discontinue his nitro drip. Review of Systems Pertinent positives as noted in HPI. All other systems were reviewed and are negative Past Medical History Past Medical History: Atrial Fibrillation, Cancer, GERD/Reflux, Hypertension, Osteoarthritis (OA) Additional Past Medical History / Comment(s): chronic low back pain, right groin pain., diverticular dx,, hx skin cancer ., hx of bleeding stomach ulcer after taking ibuprofen with eliquis., using cane to walk. History of Any Multi-Drug Resistant Organisms: None Reported Past Surgical History: Appendectomy, Joint Replacement, Orthopedic Surgery, Tonsillectomy Additional Past Surgical History / Comment(s): 05/28/17 Total L knee arthroplasy, R total knee, bilateral total hip arthroplasties, bilateral carpal tunnel releases, colonoscopies, basal cell skin cancer.,L foot bone spur with hardware removed and spacer implanted., steroid back injections. Past Anesthesia/Blood Transfusion Reactions: No Reported Reaction Additional Past Anesthesia/Blood Transfusion Reaction / Comment(s): . Past Psychological History: No Psychological Hx Reported Smoking Status: Former smoker - Past Family History Brother(s) Family Medical History: Cancer Mother Family Medical History: Cancer Additional Family Medical History / Comment(s): Mother lived to be 90yrs old. breast cancer Father Family Medical History: No Reported History Additional Family Medical History / Comment(s): Father lived to be in his early 80's. Medications and Allergies Home Medications Medication Instructions Recorded Confirmed Type Atenolol 100 mg PO DAILY 01/20/14 12/13/21 History Diltiazem Cd [Cardizem CD] 300 mg PO DAILY 01/20/14 12/13/21 History Apixaban [Eliquis] 5 mg PO BID #60 tab 05/29/17 12/13/21 Rx Omeprazole 20 mg PO DAILY 01/02/19 12/13/21 History Atorvastatin [Lipitor] 20 mg PO DAILY 09/22/21 12/13/21 History Multivit-Min/Folic/Vit K/Lycop 1 tab PO DAILY 09/22/21 12/13/21 History [Men's Multivitamin Tablet] lisinopriL [Zestril] 20 mg PO DAILY 10/18/21 12/13/21 History Fluorouracil [Efudex] 1 applic TOPICAL BID 12/13/21 12/13/21 History HYDROcodone/APAP 7.5-325MG [[place] 1 tab PO TID PRN 12/13/21 12/13/21 History 7.5-325] Hydrocortisone Cream 1 applic TOPICAL DAILY 12/13/21 12/13/21 History [Hydrocortisone 2.5% Cream] Ibuprofen [Motrin] 800 mg PO TID PRN 12/13/21 12/13/21 History Nirmatrelvir/Ritonavir [Paxlovid 3 tab PO DIRECTED 12/13/21 12/13/21 History Co-Pack (Eua)] Allergies Allergy/AdvReac Type Severity Reaction Status Date / Time No Known Allergies Allergy Verified 12/13/21 06:47 Physical Exam Vitals: Vital Signs Temp Pulse Resp BP Pulse Ox 12/13/21 06:01 117 H 20 138/102 12/13/21 05:58 112 H 20 90/66 96 12/13/21 05:17 112 H 20 158/88 95 12/13/21 03:46 97 18 145/108 95 12/13/21 02:41 99 18 144/101 94 L 12/13/21 02:30 95 20 152/85 12/13/21 02:00 102 H 20 135/85 93 L 12/13/21 01:45 98 20 134/100 93 L 12/13/21 01:28 98.1 F 99 18 162/89 91 L Intake and Output 12/12/21 12/12/21 12/13/21 14:59 22:59 06:59 Intake Total 0.75 Balance 0.75 Intake: Intake, IV Titration 0.75 Amount Nitroglycerin-D5w Pmx 50 0.75 mg In Dextrose/Water 1 250ml.bag @ 10 MCG/MIN 3 mls/hr IV .Q24H [facility] Rx#: [id number] Other: Weight 110.087 kg Constitutional: restless , respiratory distress on bipap, follows simple commands Eyes: Anicteric sclerae, moist conjunctiva, Pupils equal round reactive to light ENMT: NC/AT Neck: Supple, no masses, or JVD No carotid bruits No thyromegaly Lungs: diffuse coarse crackles Clear to percussion increase work of breathing Cardiovascular: Heart irregular No murmurs, gallops, or rubs trace peripheral edema Abdominal: Soft Nontender, no guarding, rebound or rigidity Abdomen moving with respiration Normoactive bowel sounds No hepatomegaly, No splenomegaly No palpable mass No abdominal wall hernia noted Skin: cold clammy skin, diaphoretic Extremities: No digital cyanosis No clubbing Pedal pulses intact and symmetrical Radial pulses intact and symmetrical No calf tenderness Psychiatric: initially was alert, then became anxious and restless Neuro Muscles Strength 4/5 in all 4 extremities Cranial nerves II-XII grossly intact No focal sensory deficits Lymphatics: no palpable cervical or supraclavicular , or inguinal lymph nodes Results CBC & Chem 7: 12/13/21 01:43 12/13/21 01:43 Labs: Abnormal Lab Results - Last 24 Hours (Table) 12/13/21 12/13/21 12/13/21 Range/Units 01:40 01:43 01:43 RBC 4.10 L (4.30-5.90) m/uL MCV 101.6 H (80.0-100.0) fL Plt Count 142 L (150-450) k/uL PT 12.1 H (9.0-12.0) sec Sodium (137-145) mmol/L BUN (9-20) mg/dL Glucose (74-99) mg/dL POC Glucose (mg/dL) 126 H (75-99) mg/dL Coronavirus (PCR) (Not Detectd) 12/13/21 12/13/21 Range/Units 01:43 04:33 RBC (4.30-5.90) m/uL MCV (80.0-100.0) fL Plt Count (150-450) k/uL PT (9.0-12.0) sec Sodium 135 L (137-145) mmol/L BUN 22 H (9-20) mg/dL Glucose 129 H (74-99) mg/dL POC Glucose (mg/dL) (75-99) mg/dL Coronavirus (PCR) Detected A (Not Detectd) Assessment and Plan Assessment: acute Covid infection delirium / TIA acute hypoxic respiratory failure afib with RVR plan follow up cultures covid test positive respiratory support and supplemental oxygen , Bipap support ICU care check prognostic COVID labs , d dimer, fibrinogen, CRP, procalcitonin, Pro BNP, tops, ferritin , LDH initiated on decadrone 6mg IV daily symptomatic control fall precautions initial reason for admission possible TIA/ delerium ,initially patient was code stroke upon arrival to ED, CT brain non acute pathology , CTA showed 30% plaque carotids, NIH was low/zero, no tpa given . initial ED exam non focal continue with neuro checks duonebs PRN follow neuro consultation ASA, statin later, suspected flash pulmonary edema , patient was initiated on nitro drip , however, CXR showed no pulmonary edema , and patient went into afib with RVR, for which nitro discontinued and initiated on amiodarone drip continue with eliquis cardio consult echocardiogram heavy daily alcohol alcohol withdrawal precautions ativan per CIWA thiamine chronic conditions hypertension , resume home BP meds full code DVT PPX on eliquis for afib anticipated length of stay > 2 midnights guarded prognosis
[2021-12-13] MEDS ORDERED: FUROSEMIDE 10 MG/ML 4 ML VIAL IV STA (07:38)
[2021-12-13] MEDS ORDERED: DILTIAZEM CD 300 MG CAP.ER.24H PO SCH (09:00)
[2021-12-13 09:13] LABS: C Reactive Protein 4.6 mg/dL (<1.0)
[2021-12-13] MEDS: ASCORBIC ACID 500 MG TAB PO SCH (09:52)
[2021-12-13] MEDS: APIXABAN 5 MG TAB PO SCH ×2 (09:52→18:03)
[2021-12-13] MEDS: atenoloL 50 MG TAB PO SCH (09:53)
[2021-12-13] MEDS: ASPIRIN 325 MG TAB PO SCH ×2 (09:53→18:02)
[2021-12-13] MEDS: ATORVASTATIN 20 MG TAB PO SCH ×2 (09:53→18:03)
[2021-12-13] MEDS: FAMOTIDINE 20 MG TAB PO SCH ×2 (09:53→20:42)
[2021-12-13] MEDS: CHOLECALCIFEROL 25 MCG (1000 IU) TABLET PO SCH (09:53)
[2021-12-13] MEDS: ZINC SULFATE 220 MG CAP PO SCH (09:54)
[2021-12-13] MEDS: PANTOPRAZOLE 40 MG TABLET PO SCH (09:54)
[2021-12-13] MEDS: lisinopriL 20 MG TAB PO SCH (09:54)
--- NOTE | 2021-12-13 10:04 | P.CNPUL ---
History of Present Illness Consult date: 12/13/21 Requesting physician: Vu Barrera Reason for consult: dyspnea, cough, hypoxemia, pneumonia, abnormal CXR/CT Chief complaint: Shortness of breath, cough, weakness. History of present illness: 76-year-old male who initially presented to the emergency department, with neurologic findings including weakness to the left side of his body, and difficulty speaking. The patient was brought into the emergency room, by EMS. Apparently those neurologic symptoms apparently improved, and the patient did have a negative computed tomography scan of the brain, and angiography CT. Subsequent to this, the patient complained of cough, shortness of breath, weakness, and he did test positive for coronavirus. He apparently also had a fever. We are asked to see him for possible ICU placement. We went down to the emergency room, and saw him in trauma room 2. The patient was on amiodarone at 1 mg a minute for atrial fibrillation with RVR, on BiPAP, with settings of 14/5 and 85%, dropped down to 60%, and saline at KVO. His saturations were 99%. His heart rate was 118 and regular, his blood pressure was 120/70, and his respiratory rate was between 26-30 breaths per minute. The patient apparently has a history of hypertension, chronic atrial fibrillation, GERD, hyperlipidemia, skin cancer, and is a former smoker. White count was 6.1, hemoglobin 13.8, hematocrit 41.6, and platelet count 142,000. D-dimer was 0.56. Fibrinogen was 391. Sodium 135, potassium 4.3, chlorides 103, CO2 24, anion gap 8, BUN 22, and creatinine 0.88. C-reactive protein was 4.6. LDH was 367. Troponin was negative 2. N-terminal proBNP was 1050. Coronavirus testing was positive. Chest x-ray showed diffuse changes, consistent with either interstitial edema or interstitial pneumonia. Review of Systems REVIEW OF SYSTEMS: CONSTITUTIONAL: Fever. NEUROLOGIC: Weakness on the left side of his body, and difficulty speaking, both of which have resolved. HEENT: [ Negative.] CARDIAC: [Negative.] PULMONARY: Shortness of breath, cough, chest congestion. GI: [Negative.] : [Negative.] RHEUMATOLOGIC: [ Negative.] IMMUNOLOGIC: [ Negative.] ENDOCRINE: [Negative. ] DERMATOLOGIC: [Negative.] Past Medical History Past Medical History: Atrial Fibrillation, Cancer, GERD/Reflux, Hypertension, Osteoarthritis (OA) Additional Past Medical History / Comment(s): chronic low back pain, right groin pain., diverticular dx,, hx skin cancer ., hx of bleeding stomach ulcer after taking ibuprofen with eliquis., using cane to walk. History of Any Multi-Drug Resistant Organisms: None Reported Past Surgical History: Appendectomy, Joint Replacement, Orthopedic Surgery, Tonsillectomy Additional Past Surgical History / Comment(s): 05/28/17 Total L knee arthroplasy, R total knee, bilateral total hip arthroplasties, bilateral carpal tunnel rele ases, colonoscopies, basal cell skin cancer.,L foot bone spur with hardware removed and spacer implanted., steroid back injections. Past Anesthesia/Blood Transfusion Reactions: No Reported Reaction Additional Past Anesthesia/Blood Transfusion Reaction / Comment(s): . Past Psychological History: No Psychological Hx Reported Smoking Status: Former smoker - Past Family History Brother(s) Family Medical History: Cancer Mother Family Medical History: Cancer Additional Family Medical History / Comment(s): Mother lived to be 90yrs old. breast cancer Father Family Medical History: No Reported History Additional Family Medical History / Comment(s): Father lived to be in his early 80's. Medications and Allergies Home Medications Medication Instructions Recorded Confirmed Type Atenolol 100 mg PO DAILY 01/20/14 12/13/21 History Diltiazem Cd [Cardizem CD] 300 mg PO DAILY 01/20/14 12/13/21 History Apixaban [Eliquis] 5 mg PO BID #60 tab 05/29/17 12/13/21 Rx Omeprazole 20 mg PO DAILY 01/02/19 12/13/21 History Atorvastatin [Lipitor] 20 mg PO DAILY 09/22/21 12/13/21 History Multivit-Min/Folic/Vit K/Lycop 1 tab PO DAILY 09/22/21 12/13/21 History [Men's Multivitamin Tablet] lisinopriL [Zestril] 20 mg PO DAILY 10/18/21 12/13/21 History Fluorouracil [Efudex] 1 applic TOPICAL BID 12/13/21 12/13/21 History HYDROcodone/APAP 7.5-325MG [[place] 1 tab PO TID PRN 12/13/21 12/13/21 History 7.5-325] Hydrocortisone Cream 1 applic TOPICAL DAILY 12/13/21 12/13/21 History [Hydrocortisone 2.5% Cream] Ibuprofen [Motrin] 800 mg PO TID PRN 12/13/21 12/13/21 History Nirmatrelvir/Ritonavir [Paxlovid 3 tab PO DIRECTED 12/13/21 12/13/21 History Co-Pack (Eua)] Allergies Allergy/AdvReac Type Severity Reaction Status Date / Time No Known Allergies Allergy Verified 12/13/21 06:47 Physical Exam Osteopathic Statement: *. No significant issues noted on an osteopathic structural exam other than those noted in the History and Physical/Consult. Vitals: Vital Signs Temp Pulse Resp BP BP Pulse Ox 12/13/21 07:05 32 H 124/71 98 12/13/21 07:00 99.0 F 110 H 25 H 125/71 96 12/13/21 06:31 101 F H 12/13/21 06:01 117 H 20 138/102 12/13/21 05:58 112 H 20 90/66 96 12/13/21 05:17 112 H 20 158/88 95 12/13/21 03:46 97 18 145/108 95 12/13/21 02:41 99 18 144/101 94 L 12/13/21 02:30 95 20 152/85 12/13/21 02:00 102 H 20 135/85 93 L 12/13/21 01:45 98 20 134/100 93 L 12/13/21 01:28 98.1 F 99 18 162/89 91 L Intake and Output 12/12/21 12/13/21 12/13/21 22:59 06:59 14:59 Intake Total 4.95 7.75 Balance 4.95 7.75 Intake: Intake, IV Titration 4.95 7.75 Amount Nitroglycerin-D5w Pmx 50 4.95 7.75 mg In Dextrose/Water 1 250ml.bag @ 10 MCG/MIN 3 mls/hr IV .Q24H [facility] Rx#: [id number] Other: Weight 110.087 kg No acute distress, oriented 3. Currently on BiPAP therapy. HEENT examination is grossly unremarkable. Neck supple. Full range of motion. No adenopathy thyromegaly or neck vein distention. Cardiovascular examination reveals an irregular rhythm and rate. S1-S2 normal. No S3 or S4. No discernible murmur noted. Heart rate 110 bpm. Lungs reveal coarse bilateral rhonchi. No wheezes. No crackles. Breath sounds equal bilaterally. Saturations 98%. Abdomen soft bowel sounds are heard. No masses or tenderness. Extremities are intact. Trace edema. No cyanosis or clubbing. Skin is without rash or lesion. Neurologic examination is brief but nonfocal. Results - Laboratory Findings CBC and BMP: 12/13/21 01:43 12/13/21 01:43 PT/INR, D-dimer PT 12.1 sec (9.0-12.0) H 12/13/21 01:43 INR 1.1 (<1.2) 12/13/21 01:43 D-Dimer 0.56 mg/L FEU (<0.60) 12/13/21 07:58 Abnormal lab findings: Abnormal Labs 12/13/21 12/13/21 12/13/21 01:40 01:43 01:43 RBC 4.10 L MCV 101.6 H Plt Count 142 L PT 12.1 H Sodium BUN Glucose POC Glucose (mg/dL) 126 H C-Reactive Protein Coronavirus (PCR) 12/13/21 12/13/21 12/13/21 01:43 04:33 07:58 RBC MCV Plt Count PT Sodium 135 L BUN 22 H Glucose 129 H POC Glucose (mg/dL) C-Reactive Protein 4.6 H Coronavirus (PCR) Detected A - Diagnostic Findings Chest x-ray: image reviewed Assessment and Plan Assessment: Acute hypoxemic respiratory failure secondary to coronavirus associated pneumonia. Difficulty speaking, and weakness on the left side of his body, resolved, with negative computed tomography scan of the brain and angiography CT. Atrial fibrillation, chronic, with RVR. History of hypertension. History of GERD. Hyperlipidemia. History of skin cancer. Former smoker. History of daily alcohol use. Plan: Plan dated 12/13/2021. The patient is currently already on Eliquis. He is on Decadron 6 mg a day. We also add vitamin C, vitamin D3, and zinc. We will check a d-dimer level, and a pro-calcitonin level. The patient also received Lasix IV. We will continue to follow the patient make recommendations where appropriate. Prognosis is guarded. The patient is not a candidate for the ICU at this time. He can be safely admitted to 3 S. Additional recommendations and suggestions are forthcoming. He remains on amiodarone at 1 mg a minute. He was not a candidate for REM at this time. Cardiology has been consulted. Time with Patient: Greater than 30
--- NOTE | 2021-12-13 10:34 | CA ---
Transthoracic Echo Report Name: Jeremy Francois Age: 76 Gender: M : 1945 Exam Date: 12/13/2021 08:04 Exam Location: [place] [facility] Ht (in): 71 Wt (lb): 242 Ordering Physician: Vu Barrera MD Attending/Referring Phys: Facilities Director Nereyda Sprague RDCS Procedure CPT: Indications: flash pulmonary edema Cardiac Hx: Technical Quality: Fair Contrast 1: Total Dose (mL): Contrast 2: Total Dose (mL): MEASUREMENTS (Male / Female) Normal Values 2D ECHO LV Diastolic Diameter PLAX 4.3 cm 4.2 - 5.9 / 3.9 - 5.3 cm LV Systolic Diameter PLAX 3.1 cm IVS Diastolic Thickness 1.4 cm 0.6 - 1.0 / 0.6 - 0.9 cm LVPW Diastolic Thickness 1.4 cm 0.6 - 1.0 / 0.6 - 0.9 cm LV Relative Wall Thickness 0.7 RV Internal Dim ED PLAX 3.4 cm LVOT Diameter 2.4 cm M-MODE Aortic Root Diameter MM 4.0 cm MV E Point Septal Separation 0.8 cm AV Cusp Separation MM 2.0 cm DOPPLER AV Peak Velocity 216.0 cm/s AV Peak Gradient 18.7 mmHg AV Mean Velocity 161.8 cm/s AV Mean Gradient 11.4 mmHg AV Velocity Time Integral 39.9 cm LVOT Peak Velocity 129.5 cm/s LVOT Peak Gradient 6.7 mmHg AV Area Cont Eq pk 2.7 cm MV Area PHT 3.3 cm MV Deceleration Time 185.7 ms TR Peak Velocity 255.4 cm/s TR Peak Gradient 26.1 mmHg Right Ventricular Systolic Press 41.1 mmHg FINDINGS Left Ventricle Left ventricular ejection fraction is estimated at 55-60 %. Moderately increased left ventricular wall thickness. Right Ventricle Mild right ventricular dilatation. Mild pulmonary hypertension. Right Atrium Normal right atrial size. Left Atrium Mild left atrial dilatation. Mitral Valve Mitral valve thickened. Mild mitral annular calcification. Aortic Valve Aortic valve sclerosis. Mild aortic stenosis with a peak gradient of 19 mmHg and a mean gradient of 11_ mmHg. Tricuspid Valve Mild tricuspid regurgitation. Pulmonic Valve Pulmonic valve not well visualized. Pericardium Normal pericardium. Aorta Aortic dilatation. Moderately dilated aortic annulus. CONCLUSIONS #1. Moderate left ventricular concentric hypertrophy with preserved LV function. #2. Mild left atrial enlargement. #3. Mild right ventricular dilation with mild pulmonary hypertension. #4. Sclerosis of the right, leaflets with mild stenosis. #5. Aortic root dilatation measuring about 4 cm Previewed by: Dr. Mirella Stephen MD (Electronically Signed) Final Date: 13 December 2021 10:33
[2021-12-13] MEDS: TRIAMCINOLONE 0.1% CREAM 80 GM TUBE TOPICAL SCH (11:05)
[2021-12-13] MEDS: FLUOROURACIL TOPICAL SCH ×2 (11:05→20:42)
[2021-12-13] MEDS: DEXAMETHASONE SOD PHOSPHATE 10 MG/ML 1 ML VIAL IV SCH (11:49)
[2021-12-13] MEDS: DILTIAZEM 125 MG in SODIUM CHLORIDE 0.9% 100 ML IV SCH (11:49)
--- NOTE | 2021-12-13 12:26 | P.CRDCN ---
History of Present Illness Consult date: 12/13/21 History of present illness: CHIEF COMPLAINT: A. fib with RVR HISTORY OF PRESENT ILLNESS: This is a 76-year-old male with a past medical history significant for permanent atrial fibrillation, hypertension, and GERD. Patient follows in the office with Dr. Ashford. We have been asked to see the patient in consultation for A. fib with RVR. The patient presented to the hospital with a chief complaint of shortness of breath, left-sided weakness, and difficulty with his speech. The patient was found to be positive for coag. The patient was also found to be in A. fib with RVR. He was started on amiodarone drip per internal medicine. * EKG reveals A. fib with RVR * Chest xray mild pulmonary fibrotic changes appear increased compared to exam. No heart failure. * Laboratory data: WBC 6.1. Hemoglobin 13.8. Platelet count 142. D-dimer 0.56. Sodium 135. Potassium 4.3. BUN 22. Creatinine 0.88. TSH 0.479. Troponin negative 2. ProBNP 1050. * Current home cardiac medications include Eliquis 5 mg twice a day, atenolol 100 mg daily, Cardizem CD 300 mg daily, lisinopril 20 mg daily * Echocardiogram completed revealing ejection fraction 55-60% , mild left atrial enlargement, mild right ventricular dilation with mild pulmonary hypertension REVIEW OF SYSTEMS: Thorough review of systems not completed secondary to limited evaluation/examination due to Covid19 PHYSICAL EXAM: Thorough physical exam not completed secondary to limited evaluation/examination due to Covid19 ASSESSMENT: Covid 19 Acute hypoxic respiratory failure, secondary to above Left-sided weakness with difficulty speaking, rule out TIA Permanent atrial fib relation with RVR Hypertension GERD Former nicotine dependence PLAN: 2-D echo obtained and reviewed Discontinue IV amiodarone Begin IV Cardizem infusion at 5 mg an hour with no bolus Resume home cardiac medications Continue anticoagulation with Eliquis Continue telemetry monitoring Further recommendations pending patient course Nurse practitioner note has been reviewed by physician. Signing provider agrees with the documented findings, assessment, and plan of care. Past Medical History Past Medical History: Atrial Fibrillation, Cancer, GERD/Reflux, Hyperlipidemia, Hypertension, Osteoarthritis (OA) Additional Past Medical History / Comment(s): Covid + 12/11/21, diverticular disease, bleeding duodenal ulcer, gastritis, hemorrhoids, chronic low back pain, vertigo at times, skin cancer with removal. History of Any Multi-Drug Resistant Organisms: None Reported Past Surgical History: Appendectomy, Joint Replacement, Orthopedic Surgery, Tonsillectomy Additional Past Surgical History / Comment(s): Total L/R knee arthroplasy, b ilateral total hip arthroplasties, bilateral carpal tunnel releases, L foot bone removed/hardware since removed and had spacer placed, steroid back injections, colonoscopies, basal cell skin cancer removed. Past Anesthesia/Blood Transfusion Reactions: No Reported Reaction Additional Past Anesthesia/Blood Transfusion Reaction / Comment(s): . Smoking Status: Former smoker - Past Family History Brother(s) Family Medical History: Cancer Mother Family Medical History: Cancer Additional Family Medical History / Comment(s): Mother lived to be 90yrs old. breast cancer Father Family Medical History: No Reported History Additional Family Medical History / Comment(s): Father lived to be in his early 80's. Medications and Allergies Home Medications Medication Instructions Recorded Confirmed Type Atenolol 100 mg PO DAILY 01/20/14 12/13/21 History Diltiazem Cd [Cardizem CD] 300 mg PO DAILY 01/20/14 12/13/21 History Apixaban [Eliquis] 5 mg PO BID #60 tab 05/29/17 12/13/21 Rx Omeprazole 20 mg PO DAILY 01/02/19 12/13/21 History Atorvastatin [Lipitor] 20 mg PO DAILY 09/22/21 12/13/21 History Multivit-Min/Folic/Vit K/Lycop 1 tab PO DAILY 09/22/21 12/13/21 History [Men's Multivitamin Tablet] lisinopriL [Zestril] 20 mg PO DAILY 10/18/21 12/13/21 History Fluorouracil [Efudex] 1 applic TOPICAL BID 12/13/21 12/13/21 History HYDROcodone/APAP 7.5-325MG [[place] 1 tab PO TID PRN 12/13/21 12/13/21 History 7.5-325] Hydrocortisone Cream 1 applic TOPICAL DAILY 12/13/21 12/13/21 History [Hydrocortisone 2.5% Cream] Ibuprofen [Motrin] 800 mg PO TID PRN 12/13/21 12/13/21 History Nirmatrelvir/Ritonavir [Paxlovid 3 tab PO DIRECTED 12/13/21 12/13/21 History Co-Pack (Eua)] Allergies Allergy/AdvReac Type Severity Reaction Status Date / Time No Known Allergies Allergy Verified 12/13/21 06:47 Physical Exam Vitals: Vital Signs Temp Pulse Resp BP BP Pulse Ox 12/13/21 11:31 94 L 12/13/21 10:15 99.3 F 91 22 127/68 97 12/13/21 07:05 32 H 124/71 98 12/13/21 07:00 99.0 F 110 H 25 H 125/71 96 12/13/21 06:31 101 F H 12/13/21 06:01 117 H 20 138/102 12/13/21 05:58 112 H 20 90/66 96 12/13/21 05:17 112 H 20 158/88 95 12/13/21 03:46 97 18 145/108 95 12/13/21 02:41 99 18 144/101 94 L 12/13/21 02:30 95 20 152/85 12/13/21 02:00 102 H 20 135/85 93 L 12/13/21 01:45 98 20 134/100 93 L 12/13/21 01:28 98.1 F 99 18 162/89 91 L Intake and Output 12/12/21 12/13/21 12/13/21 22:59 06:59 14:59 Intake Total 4.95 7.75 Balance 4.95 7.75 Intake: Intake, IV Titration 4.95 7.75 Amount Nitroglycerin-D5w Pmx 50 4.95 7.75 mg In Dextrose/Water 1 250ml.bag @ 10 MCG/MIN 3 mls/hr IV .Q24H [facility] Rx#: [id number] Other: Weight 110.087 kg 110.087 kg Results 12/13/21 01:43 12/13/21 01:43 Cardiac Enzymes 12/13/21 12/13/21 12/13/21 Range/Units 01:43 01:43 07:58 AST 26 (17-59) U/L Lactate Dehydrogenase 367 (313-618) U/L Troponin I <0.012 (0.000-0.034) ng/mL 12/13/21 Range/Units 07:58 AST (17-59) U/L Lactate Dehydrogenase (313-618) U/L Troponin I <0.012 (0.000-0.034) ng/mL Coagulation 12/13/21 Range/Units 01:43 PT 12.1 H (9.0-12.0) sec APTT 29.0 (22.0-30.0) sec CBC 12/13/21 Range/Units 01:43 WBC 6.1 (3.8-10.6) k/uL RBC 4.10 L (4.30-5.90) m/uL Hgb 13.8 (13.0-17.5) gm/dL Hct 41.6 (39.0-53.0) % Plt Count 142 L (150-450) k/uL Comprehensive Metabolic Panel 12/13/21 Range/Units 01:43 Sodium 135 L (137-145) mmol/L Potassium 4.3 (3.5-5.1) mmol/L Chloride 103 (98-107) mmol/L Carbon Dioxide 24 (22-30) mmol/L BUN 22 H (9-20) mg/dL Creatinine 0.88 (0.66-1.25) mg/dL Glucose 129 H (74-99) mg/dL Calcium 8.9 (8.4-10.2) mg/dL AST 26 (17-59) U/L ALT 14 (4-49) U/L Alkaline Phosphatase 71 (38-126) U/L Total Protein 6.6 (6.3-8.2) g/dL Albumin 3.6 (3.5-5.0) g/dL Current Medications Generic Name Dose Route Start Last Admin Trade Name Freq PRN Reason Stop Dose Admin Acetaminophen 650 mg 12/13/21 04:11 Acetaminophen Tab 325 Mg Tab PO Q6HR PRN Mild Pain or Fever > 100.5 Al Hydroxide/Mg Hydroxide 15 ml 12/13/21 04:11 Mag Hydrox/Al Hydrox/Simeth 30 Ml Cup PO Q6HR PRN Indigestion Albuterol Sulfate 2 puff 12/13/21 06:55 Albuterol Hfa Inhaler INHALATION RT-Q6H PRN Shortness Of Breath Or Wheezing Apixaban 5 mg 12/13/21 09:00 12/13/21 09:52 Apixaban 5 Mg Tab PO Not Given BID [facility] Protocol Ascorbic Acid 500 mg 12/13/21 09:00 12/13/21 09:52 Ascorbic Acid 500 Mg Tab PO Not Given DAILY [facility] Aspirin 325 mg 12/13/21 09:00 12/13/21 09:53 Aspirin 325 Mg Tab PO Not Given DAILY [facility] Atenolol 100 mg 12/13/21 09:00 12/13/21 09:53 Atenolol 50 Mg Tab PO Not Given DAILY [facility] Atorvastatin Calcium 20 mg 12/13/21 09:00 12/13/21 09:53 Atorvastatin 20 Mg Tab PO Not Given DAILY [facility] Cholecalciferol 25 mcg 12/13/21 09:00 12/13/21 09:53 Cholecalciferol 25 Mcg (1000 Iu) Tablet PO Not Given DAILY [facility] Dexamethasone Sodium Phosphate 6 mg 12/13/21 09:00 12/13/21 11:49 Dexamethasone Sod Phosphate 10 Mg/Ml 1 Ml Vial IV 12/22/21 09:01 6 mg DAILY [facility] Administration Famotidine 20 mg 12/13/21 09:00 12/13/21 09:53 Famotidine 20 Mg Tab PO Not Given BID [facility] Diltiazem HCl 125 mg/ Sodium 125 mls @ 5 mls/hr 12/13/21 10:30 12/13/21 11:49 Chloride IV 5 mg/hr .Q24H [facility] 5 mls/hr Administration 5 MG/HR Lisinopril 20 mg 12/13/21 09:00 12/13/21 09:54 Lisinopril 20 Mg Tab PO Not Given DAILY [facility] Lorazepam 1 mg 12/13/21 07:04 Lorazepam 2 Mg/Ml Inj IV Q2HR PRN CIWA 8 or 9 Lorazepam 1 mg 12/13/21 07:04 Lorazepam 2 Mg/Ml Inj IV Q1HR PRN CIWA 10 to 15 Lorazepam 2 mg 12/13/21 07:04 Lorazepam 2 Mg/Ml Inj IV 12/15/21 07:04 Q10M PRN CIWA 16 or higher Naloxone HCl 0.2 mg 12/13/21 04:11 Naloxone 0.4 Mg/Ml 1 Ml Vial IV Q2M PRN Opioid Reversal Patient's Own ( 1 applic 12/13/21 09:00 12/13/21 11:05 Fluorouracil [Efudex TOPICAL Not Given ] 40 Gm Cream..G.) BID [facility] Pantoprazole Sodium 40 mg 12/13/21 09:00 12/13/21 09:54 Pantoprazole 40 Mg Tablet PO Not Given DAILY [facility] Thiamine HCl 100 mg 12/13/21 17:30 Thiamine 100 Mg Tab PO BID-W/MEALS [facility] Triamcinolone Acetonide 1 applic 12/13/21 09:00 12/13/21 11:05 Triamcinolone 0.1% Cream 80 Gm Tube TOPICAL Not Given DAILY [facility] Zinc Sulfate 220 mg 12/13/21 09:00 12/13/21 09:54 Zinc Sulfate 220 Mg Cap PO Not Given DAILY [facility] Intake and Output 12/12/21 12/13/21 12/13/21 22:59 06:59 14:59 Intake Total 4.95 7.75 Balance 4.95 7.75 Intake: Intake, IV Titration 4.95 7.75 Amount Nitroglycerin-D5w Pmx 50 4.95 7.75 mg In Dextrose/Water 1 250ml.bag @ 10 MCG/MIN 3 mls/hr IV .Q24H [facility] Rx#: [id number] Other: Weight 110.087 kg 110.087 kg Patient Weight 12/14/21 06:59 Weight 110.087 kg 12/13/21 01:43 12/13/21 01:43
[2021-12-13] MEDS ORDERED: AMIODARONE 450 MG in DEXTROSE 5% IN WATER 250 ML IV SCH ×2 (12:45)
[2021-12-13 16:44] LABS: Glucose,Whole Blood 226 mg/dL (75-99)
--- NOTE | 2021-12-13 17:44 | P.CNNES ---
History of Present Illness Consult date: 12/13/21 Requesting physician: Ruslan Payan Reason for Consult: Possible TIA History of Present Illness: Patient is a 76-year-old male came to the hospital by ambulance early this morning at 1:26 AM. Patient states that he came to the hospital because his was afraid that he was having a stroke. Patient states that she recently turned positive for Covid, head so throat, difficulty with swallowing. As per EMS flow sheet, with the arrive, found patient standing in his bathroom. EMS was advised the family that patient tested positive for Covid-19 yesterday via home test. Family has mentioned that patient was not acting normal. During extrication of the patient, it was noted that patient was unable to move his le ft leg and there appeared to be left-sided facial droop. [place] stroke scale was positive for left facial droop, left arm drift and left-sided weakness. Patient was last seen normal just before bed which was about 2 hours prior at 11 PM. Patient has history of atrial fibrillation for which he does take Eliquis. Patient compliant with prescribed dosing and schedule. Patient denied any head, neck, chest back or abdominal pain. Patient's blood pressure at the scene was 180/114, pulse rate 100, respiration 12, saturation 98%, blood glucose 148. Vital signs on arrival blood pressure 162/89, pulse are negative and temperature 98.1. Patient's blood test shows normal WBC hemoglobin 13.8, elevated MCV 101.6, platelets 142. PT/PTT normal, d-dimer normal. Sodium 135 potassium 4.3, BUN 22 creatinine 0.88. Normal hepatic panel. Opening is negative. [place] virus PCR positive. CT head reported cerebral atrophy and chronic small vessel ischemia. No acute process. Mild sinusitis. I personally reviewed computed tomography scan of the head, agree with the findings. There is significant amount of small vessel disease noted bilaterally in the centrum semiovale, generalized atrophy. No acute process. CTA of brain reported "negative". CTA of the neck reported plaque formation an approximately 30% stenosis at the origin of both ICA. EKG shows atrial fibrillation with rapid ventricular rate. Chest x-ray revealed pulmonary fibrotic change. Cardiomegaly. No change compared to previous exam. As per ED report, when the examined the patient, patient's stroke symptoms have resolved with NIH stroke scale of 0. ED staff discussed case with Dr. Hernandez, who also did not recommend TPA for the same reasons. I spoke to patient's on the phone. She states that patient's initial symptoms at home resolved in about 1-1/2-2 hours. She did not notice any facial droop, slurred speech, or any problem with the vision. He was fully oriented at that time when he was in the bathroom not able to move his legs. He knew where he was, who she was and was answering appropriately. She did not pay attention to his arms if they were weak at that time. Patient although could not move his legs, but was still able to maintain posture of his body and did not fall while standing. He could not even turn half a step in the bathroom (which is a very small size bathroom). It took extra effort for the EMS to extricate him from the bathroom. After he arrived to the ER, he was back to normal. While in the ER, patient's believes that he had another spell, in which he was not able to lift his legs up, either side. She felt that his arms were also weak. At present she believes that he is back to normal. Patient has history of hypertension, denies diabetes. No history of seizures. Patient's home medications include Cardizem, atenolol 100 mg, Eliquis, omeprazole, Lipitor 20 mg, multivitamin, lisinopril 20 mg, [place], ibuprofen,Paxlovid. Patient does not take any antiplatelet medication at home. Patient has been fully vaccinated with 3 doses of Pfizer vaccine. The booster dose he received in May 2021. Review of Systems Positive for shortness of breath, cough, congestion. Denies headache dizziness. Patient has history of bilateral hip and knee replacements in the past. Has osteoarthritis. All other 14 point review systems reviewed and are unremarkable. Past Medical History Past Medical History: Atrial Fibrillation, Cancer, GERD/Reflux, Hyperlipidemia, Hypertension, Osteoarthritis (OA) Additional Past Medical History / Comment(s): Covid + 12/11/21, diverticular disease, bleeding duodenal ulcer, gastritis, hemorrhoids, chronic low back pain, vertigo at times, skin cancer with removal. History of Any Multi-Drug Resistant Organisms: None Reported Past Surgical History: Appendectomy, Joint Replacement, Orthopedic Surgery, Tonsillectomy Additional Past Surgical History / Comment(s): Total L/R knee arthroplasy, bilateral total hip arthroplasties, bilateral carpal tunnel releases, L foot bone removed/hardware since removed and had spacer placed, steroid back injections, colonoscopies, basal cell skin cancer removed. Past Anesthesia/Blood Transfusion Reactions: No Reported Reaction Additional Past Anesthesia/Blood Transfusion Reaction / Comment(s): . Smoking Status: Former smoker - Past Family History Brother(s) Family Medical History: Cancer Mother Family Medical History: Cancer Additional Family Medical History / Comment(s): Mother lived to be 90yrs old. breast cancer Father Family Medical History: No Reported History Additional Family Medical History / Comment(s): Father lived to be in his early 80's. Medications and Allergies Home Medications Medication Instructions Recorded Confirmed Type Atenolol 100 mg PO DAILY 01/20/14 12/13/21 History Diltiazem Cd [Cardizem CD] 300 mg PO DAILY 01/20/14 12/13/21 History Apixaban [Eliquis] 5 mg PO BID #60 tab 05/29/17 12/13/21 Rx Omeprazole 20 mg PO DAILY 01/02/19 12/13/21 History Atorvastatin [Lipitor] 20 mg PO DAILY 09/22/21 12/13/21 History Multivit-Min/Folic/Vit K/Lycop 1 tab PO DAILY 09/22/21 12/13/21 History [Men's Multivitamin Tablet] lisinopriL [Zestril] 20 mg PO DAILY 10/18/21 12/13/21 History Fluorouracil [Efudex] 1 applic TOPICAL BID 12/13/21 12/13/21 History HYDROcodone/APAP 7.5-325MG [[place] 1 tab PO TID PRN 12/13/21 12/13/21 History 7.5-325] Hydrocortisone Cream 1 applic TOPICAL DAILY 12/13/21 12/13/21 History [Hydrocortisone 2.5% Cream] Ibuprofen [Motrin] 800 mg PO TID PRN 12/13/21 12/13/21 History Nirmatrelvir/Ritonavir [Paxlovid 3 tab PO DIRECTED 12/13/21 12/13/21 History Co-Pack (Eua)] Allergies Allergy/AdvReac Type Severity Reaction Status Date / Time No Known Allergies Allergy Verified 12/13/21 06:47 Physical Examination - Vital Signs Vital Signs: Vital Signs Temp Pulse Resp BP BP Pulse Ox 12/13/21 11:31 94 L 12/13/21 10:15 99.3 F 91 22 127/68 97 12/13/21 07:05 32 H 124/71 98 12/13/21 07:00 99.0 F 110 H 25 H 125/71 96 12/13/21 06:31 101 F H 12/13/21 06:01 117 H 20 138/102 12/13/21 05:58 112 H 20 90/66 96 12/13/21 05:17 112 H 20 158/88 95 12/13/21 03:46 97 18 145/108 95 12/13/21 02:41 99 18 144/101 94 L 12/13/21 02:30 95 20 152/85 12/13/21 02:00 102 H 20 135/85 93 L 12/13/21 01:45 98 20 134/100 93 L 12/13/21 01:28 98.1 F 99 18 162/89 91 L Intake and Output 12/12/21 12/13/21 12/13/21 22:59 06:59 14:59 Intake Total 4.95 7.75 Balance 4.95 7.75 Intake: Intake, IV Titration 4.95 7.75 Amount Nitroglycerin-D5w Pmx 50 4.95 7.75 mg In Dextrose/Water 1 250ml.bag @ 10 MCG/MIN 3 mls/hr IV .Q24H [facility] Rx#: [id number] Other: Weight 110.087 kg 110.087 kg Patient is an elderly male, laying in the bed, appears in slight respiratory distress. He is congested, with rattling sounds. Patient is alert awake oriented to time place and person. Speech and language functions are normal. Attention, concentration and fund of knowledge is adequate. On cranial examination, pupils are round and reacting to light, visual rodriguez are full on confrontation, extraocular muscles are intact with no nystagmus. Face is symmetric, tongue protrudes to the midline. Palatal elevation and sensation normal, hearing and shoulder shrug normal, facial sensation normal. Shoulder shrug normal. On muscle strength testing, there is no pronator drift and the strength is normal in arms and legs distally and proximally. Deep tendon reflexes are 1+ in the upper limbs, absent in the lower limbs, and plantar is downgoing bilaterally. Sensory to touch is equal with no neglect. Cerebellar function showed no ataxia for [id number] testing. No dysdiadochokinesia. Tone and bulk of muscles normal. Gait not checked. On general examination, there is no carotid bruit or murmur, S1-S2 audible. Abdomen is soft nontender. Chest has some crackles, congestion on auscultation. Patient has mild skin hyperpigmentation of the lower legs. Mild peripheral edema. Results - Laboratory Findings CBC and BMP: 12/13/21 01:43 12/13/21 01:43 Abnormal Lab Findings: Abnormal Labs 12/13/21 12/13/21 12/13/21 01:40 01:43 01:43 RBC 4.10 L MCV 101.6 H Plt Count 142 L PT 12.1 H Sodium BUN Glucose POC Glucose (mg/dL) 126 H C-Reactive Protein Procalcitonin Coronavirus (PCR) 12/13/21 12/13/21 12/13/21 01:43 04:33 07:58 RBC MCV Plt Count PT Sodium 135 L BUN 22 H Glucose 129 H POC Glucose (mg/dL) C-Reactive Protein 4.6 H Procalcitonin Coronavirus (PCR) Detected A 12/13/21 07:58 RBC MCV Plt Count PT Sodium BUN Glucose POC Glucose (mg/dL) C-Reactive Protein Procalcitonin 0.25 H Coronavirus (PCR) Assessment and Plan Assessment: * Probable TIA manifesting with transient inability to walk. Patient's b elieves that his legs were weak bilaterally, although EMS noted obvious focal left-sided weakness. His symptoms resolved in about 1-1/2-2 hours. Patient's believes that he had another TIA while in the ER, which was shorter in duration. Patient's current NIH stroke scale is 0. Patient was not a candidate for TPA because of being on Eliquis. * Atrial fibrillation with rapid ventricular rate, currently on Eliquis * Acute Covid-19 infection. * Hypertension * Hyperlipidemia * Osteoarthritis Plan: * Patient had probable recurrent TIA 2, now the symptoms completely resolved. Resume Eliquis 5 mg twice a day. * MRI of the brain evaluate for an acute stroke. * 2-D echo revealed moderate left ventricular concentric hypertrophy with preserved LV function. Mild left atrial enlargement. Sclerosis of the right leaflets with mild aortic stenosis. Aortic root dilation measuring about 4 cm. * CTA revealed plaque formation an approximate 30% stenosis at the origin of both ICA. Agree with starting aspirin regimen. Patient has received 325 mg aspirin the ER. If he remains symptom-free, then may decrease aspirin dose to 81 mg daily from the morning. * Fasting a.m. lipid panel, target LDL <70.0. Continue Lipitor 20 mg daily. * Hemoglobin A1c * Continue telemetry monitoring. * No other neurological workup indicated. * Dr. Chucho Thibodeaux will be starting neurology service in the morning. Thank you for the consult. Time with Patient: Greater than 30
[2021-12-13] MEDS: THIAMINE 100 MG TAB PO SCH (18:02)
[2021-12-13 20:12] LABS: Glucose,Whole Blood 163 mg/dL (75-99)
[2021-12-14 01:09] LABS: Glucose,Whole Blood 144 mg/dL (75-99)
[2021-12-14 05:06] LABS: Glucose,Whole Blood 205 mg/dL (75-99)
[2021-12-14] MEDS: THIAMINE 100 MG TAB PO SCH ×2 (05:49→16:47)
[2021-12-14] MEDS ORDERED: cloNIDine HCL 0.2 MG TAB PO STA (05:50)
[2021-12-14 08:35] LABS: Basophils % (A) 0 %; Eosinophils % (A) 0 %; HCT 48.2 % (39.0-53.0); HGB 15.5 gm/dL (13.0-17.5); Lymphocytes # (A) 0.9 k/uL (1.0-4.8); Lymphocytes % (A) 8 %; MCH 32.9 pg (25.0-35.0); MCHC 32.1 g/dL (31.0-37.0); MCV 102.5 fL (80.0-100.0); Macrocytosis Slight; Mean Platelet Volume 9.2; Monocytes # (A) 0.6 k/uL (0-1.0); Monocytes % (A) 5 %; Neutrophils # (A) 10.2 k/uL (1.3-7.7); Neutrophils % (A) 86 %; Platelet Count 178 k/uL (150-450); RBC 4.71 m/uL (4.30-5.90); RDW 13.3 % (11.5-15.5); WBC 11.9 k/uL (3.8-10.6)
[2021-12-14 08:44] LABS: ALT 17 U/L (4-49); AST 26 U/L (17-59); African American GFR (CKD) >90 (>60 ml/min/1.73 sqM); Alkaline Phosphatase 68 U/L (38-126); Anion Gap 10 mmol/L; Blood Urea Nitrogen 21 mg/dL (9-20); Calcium 9.9 mg/dL (8.4-10.2); Carbon Dioxide 24 mmol/L (22-30); Chloride 106 mmol/L (98-107); Glucose 158 mg/dL (74-99); Non-African American GFR(CKD) >90 (>60 ml/min/1.73 sqM); Potassium 4.3 mmol/L (3.5-5.1); Sodium 140 mmol/L (137-145); Total Bilirubin 1.1 mg/dL (0.2-1.3); Total Protein 7.4 g/dL (6.3-8.2)
[2021-12-14] MEDS: TRIAMCINOLONE 0.1% CREAM 80 GM TUBE TOPICAL SCH (09:14)
[2021-12-14] MEDS: ASPIRIN 325 MG TAB PO SCH (09:15)
[2021-12-14] MEDS: atenoloL 50 MG TAB PO SCH ×3 (09:15→11:02)
[2021-12-14] MEDS: lisinopriL 20 MG TAB PO SCH (09:15)
[2021-12-14] MEDS: ASCORBIC ACID 500 MG TAB PO SCH (09:16)
[2021-12-14] MEDS: FAMOTIDINE 20 MG TAB PO SCH ×2 (09:16→20:30)
[2021-12-14] MEDS: ZINC SULFATE 220 MG CAP PO SCH (09:16)
[2021-12-14] MEDS: DILTIAZEM CD 180 MG CAP.ER.24H PO SCH (09:16)
[2021-12-14] MEDS: CHOLECALCIFEROL 25 MCG (1000 IU) TABLET PO SCH (09:16)
[2021-12-14] MEDS: PANTOPRAZOLE 40 MG TABLET PO SCH (09:16)
[2021-12-14] MEDS: ATORVASTATIN 20 MG TAB PO SCH (09:16)
[2021-12-14] MEDS: DEXAMETHASONE SOD PHOSPHATE 10 MG/ML 1 ML VIAL IV SCH (09:16)
[2021-12-14] MEDS: APIXABAN 5 MG TAB PO SCH ×2 (09:16→20:26)
[2021-12-14] MEDS: DILTIAZEM 125 MG in SODIUM CHLORIDE 0.9% 100 ML IV SCH (09:23)
[2021-12-14] MEDS: FLUOROURACIL TOPICAL SCH ×2 (11:02→20:31)
--- NOTE | 2021-12-14 11:48 | P.PN ---
Subjective Progress Note Date: 12/14/21 Principal diagnosis: Weakness. 76-year-old male who initially presented to the emergency department, with neurologic findings including weakness to the left side of his body, and difficulty speaking. The patient was brought into the emergency room, by EMS. Apparently those neurologic symptoms apparently improved, and the patient did have a negative computed tomography scan of the brain, and angiography CT. Subsequent to this, the patient complained of cough, shortness of breath, weakness, and he did test positive for coronavirus. He apparently also had a fever. We are asked to see him for possible ICU placement. We went down to the emergency room, and saw him in trauma room 2. The patient was on amiodarone at 1 mg a minute for atrial fibrillation with RVR, on BiPAP, with settings of 14/5 and 85%, dropped down to 60%, and saline at KVO. His saturations were 99%. His heart rate was 118 and regular, his blood pressure was 120/70, and his respiratory rate was between 26-30 breaths per minute. The patient apparently has a history of hypertension, chronic atrial fibrillation, GERD, hyperlipidemia, skin cancer, and is a former smoker. White count was 6.1, h emoglobin 13.8, hematocrit 41.6, and platelet count 142,000. D-dimer was 0.56. Fibrinogen was 391. Sodium 135, potassium 4.3, chlorides 103, CO2 24, anion gap 8, BUN 22, and creatinine 0.88. C-reactive protein was 4.6. LDH was 367. Troponin was negative 2. N-terminal proBNP was 1050. Coronavirus testing was positive. Chest x-ray showed diffuse changes, consistent with either interstitial edema or interstitial pneumonia. Progress note dated 12/14/2021. 76-year-old male seen yesterday in consultation in the emergency room. The patient seems be doing much better today. The patient's on a couple liters of oxygen. We saw him yesterday, he was on BiPAP. The patient is vaccinated ag ainst coronavirus, but did test positive. Currently laboratory includes a white count 11.9, hemoglobin 15.5, hematocrit 48.2, and a platelet count of 178,000. Sodium, potassium, chloride, CO2, are all normal. BUN is 21 with a creatinine of 0.59. He is currently on Cardizem, at 5 mg an hour, for his atrial fibrillation. He is ready on Bernie course. We added vitamin C, vitamin D3, and zinc, as well as Decadron. Objective - Vital Signs Vital signs: Vital Signs Temp 98.2 F 12/14/21 08:00 Pulse 104 H 12/14/21 08:00 Resp 18 12/14/21 08:00 BP 123/68 12/14/21 08:00 Pulse Ox 98 12/14/21 08:00 Intake & Output 12/13/21 12/14/21 12/14/21 18:59 06:59 18:59 Intake Total 517.75 467.833 Output Total 400 1125 Balance 117.75 -1125 467.833 Weight 110.087 kg Intake: Intake, IV Titration 37.75 107.833 Amount Diltiazem 125 mg In 30 107.833 Sodium Chloride 0.9% 100 ml @ 5 MG/HR 5 mls/hr IV .Q24H [facility] Rx#:[id number] Nitroglycerin-D5w Pmx 50 7.75 mg In Dextrose/Water 1 250ml.bag @ 10 MCG/MIN 3 mls/hr IV .Q24H [facility] Rx#: [id number] Oral 480 360 Output: Urine 400 1125 Other: Voiding Method Urinal Urinal Urinal - Exam No acute distress, oriented 3. Currently on nasal O2. He appears quite comfortable. HEENT examination is grossly unremarkable. Neck supple. Full range of motion. No adenopathy thyromegaly or neck vein distention. Cardiovascular examination reveals an irregular rhythm and rate. S1-S2 normal. No S3 or S4. No discernible murmur noted. Heart rate 104 bpm. Lungs reveal coarse bilateral rhonchi. No wheezes. No crackles. Breath sounds equal bilaterally. Saturations 98%. Abdomen soft bowel sounds are heard. No masses or tenderness. Extremities are intact. Trace edema. No cyanosis or clubbing. Skin is without rash or lesion. Neurologic examination is brief but nonfocal. - Labs CBC & Chem 7: 12/14/21 07:41 12/14/21 07:41 Labs: Abnormal Lab Results - Last 24 Hours (Table) 12/13/21 12/13/21 12/14/21 Range/Units 16:42 20:09 01:07 WBC (3.8-10.6) k/uL MCV (80.0-100.0) fL Neutrophils # (1.3-7.7) k/uL Lymphocytes # (1.0-4.8) k/uL BUN (9-20) mg/dL Creatinine (0.66-1.25) mg/dL Glucose (74-99) mg/dL POC Glucose (mg/dL) 226 H 163 H 144 H (75-99) mg/dL 12/14/21 12/14/21 12/14/21 Range/Units 05:03 07:41 07:41 WBC 11.9 H (3.8-10.6) k/uL MCV 102.5 H (80.0-100.0) fL Neutrophils # 10.2 H (1.3-7.7) k/uL Lymphocytes # 0.9 L (1.0-4.8) k/uL BUN 21 H (9-20) mg/dL Creatinine 0.59 L (0.66-1.25) mg/dL Glucose 158 H (74-99) mg/dL POC Glucose (mg/dL) 205 H (75-99) mg/dL Microbiology - Last 24 Hours (Table) 12/13/21 07:58 Blood Culture - Preliminary Blood No Growth after 24 hours Assessment and Plan Assessment: Acute hypoxemic respiratory failure secondary to coronavirus associated pneumonia. Difficulty speaking, and weakness on the left side of his body, resolved, with negative computed tomography scan of the brain and angiography CT. Atrial fibrillation, chronic, with RVR. History of hypertension. History of GERD. Hyperlipidemia. History of skin cancer. Former smoker. History of daily alcohol use. Plan: Plan dated 12/13/2021. The patient is currently already on Eliquis. He is on Decadron 6 mg a day. We also add vitamin C, vitamin D3, and zinc. We will check a d-dimer level, and a pro-calcitonin level. The patient also received Lasix IV. We will continue to follow the patient make recommendations where appropriate. Prognosis is guarded. The patient is not a candidate for the ICU at this time. He can be safely admitted to 3 S. Additional recommendations and suggestions are forthcoming. He remains on amiodarone at 1 mg a minute. He was not a candidate for REM at this time. Cardiology has been consulted. Plan dated 12/14/2021. The patient was seen yesterday in the emergency department. Yesterday, he was on BiPAP. Today, he is on nasal cannula. He remains on Cardizem 5 mg an hour. The patient was given Decadron, vitamin C, vitamin D3, and zinc. The patient was ready on Bernie course for his atrial fibrillation. Clinically he looks much better today than he was yesterday. The patient is sitting up in a chair. He is not manifesting any signs or symptoms of respiratory distress. Cardiology is currently on the case. Time with Patient: Less than 30
[2021-12-14 12:02] LABS: Glucose,Whole Blood 133 mg/dL (75-99)
--- NOTE | 2021-12-14 12:09 | P.PN ---
Subjective Progress Note Date: 12/14/21 Chief Complaint: confusion and increase generalized weakness 76 year old male with hypertension , afib on eliqu patient was at his baseline status of health up until this weekend, when he started having upper respiratory symptoms sore throat and some coughing, however, today he was getting increasingly weak and tired, with episodes of confusion , no focal neuro deficits but he seemed to be overall weak and more lethargic. no report of fever, or chills, no report of chest pain , nausea or vomiting, no diarrhea or abd pain. patient is vaccinated and boosted against covid . tested positive on Saturday (2 days ago ). just before midnights , noticed, increase left sided weakness, confusion and slurred speech, she called EMS and upon their arrival they noted difficulty with left leg, however, he was able to stand up but not follow commands, upon arrival to ED code stroke was initially activated , CT brain was negative, and CTA showed 30% plaque in the carotids. his NIH was low / zero. patient was doing ok initially , case discussed with neuro recreation teacher, tested positive for covid , however, was on room air and stable. admitted for monitoring and neuro consult patient denies any tobacco smoking, or drugs, admits to heavy daily alcohol drinking. no recent travel or hospitalization. he complaints of lots of aches and pains in his joints. suddenly, he started having increase work of breathing, with crackles all over his lungs, blood pressure increased. CXR did not show any increase pulmonary edema, however, patient became hypoxic down to mid 80s%, started on Bipap. and nitro drip to control his blood pressure . later, he went into afib with RVR, so he was transitioned to amiodarone , and to discontinue his nitro drip. Interval history: 12/14 patient still complained of exertional dyspnea with cough is currently on 4 L nasal cannula. He denies any chest pain. Is oriented 3. Physical examination: General: non toxic, no distress, appears at stated age Derm: warm, dry Head: atraumatic, normocephalic, symmetric Eyes: EOMI, no lid lag, anicteric sclera Mouth: no lip lesion, mucus membranes moist Cardiovascular: S1S2 reg, no murmur, positive posterior tibial pulse bilateral, Lungs: CTA bilateral, no rhonchi, no rales , no accessory muscle use Abdominal: soft, nontender to palpation, no guarding, no appreciable orga nomegaly Ext: no gross muscle atrophy, no edema, no contractures Neuro: CN II-XI grossly intact, no focal neuro deficits Psych: Alert, oriented, appropriate affect Acute hypoxemic respiratory failure secondary to coronavirus associated pneumonia. -Patient currently on 6 L -Not a candidate for Remdesivir -Resume Decadron -Patient on Eliquis TIA -Difficulty speaking, and weakness on the left side of his body, resolved, with negative computed tomography scan of the brain and angiography CT. symptoms resolved -Neurology following -Eliquis Ophelia by neurology Atrial fibrillation, chronic, with RVR. -Rate controlled History of daily alcohol use. Alcohol abuse alcohol withdrawal precautions ativan per CIWA thiamine History of hypertension. History of GERD. Hyperlipidemia. History of skin cancer. Former smoker. full code DVT PPX on eliquis for afib anticipated length of stay > 2 midnights guarded prognosis Objective - Vital Signs Vital signs: Vital Signs Temp 98.2 F 12/14/21 08:00 Pulse 104 H 12/14/21 08:00 Resp 18 12/14/21 08:00 BP 123/68 12/14/21 08:00 Pulse Ox 98 12/14/21 08:00 Intake & Output 12/13/21 12/14/21 12/14/21 18:59 06:59 18:59 Intake Total 517.75 467.833 Output Total 400 1125 Balance 117.75 -1125 467.833 Weight 110.087 kg Intake: Intake, IV Titration 37.75 107.833 Amount Diltiazem 125 mg In 30 107.833 Sodium Chloride 0.9% 100 ml @ 5 MG/HR 5 mls/hr IV .Q24H [facility] Rx#:[id number] Nitroglycerin-D5w Pmx 50 7.75 mg In Dextrose/Water 1 250ml.bag @ 10 MCG/MIN 3 mls/hr IV .Q24H [facility] Rx#: [id number] Oral 480 360 Output: Urine 400 1125 Other: Voiding Method Urinal Urinal Urinal - Labs CBC & Chem 7: 12/14/21 07:41 12/14/21 07:41 Labs: Abnormal Lab Results - Last 24 Hours (Table) 12/13/21 12/13/21 12/14/21 Range/Units 16:42 20:09 01:07 WBC (3.8-10.6) k/uL MCV (80.0-100.0) fL Neutrophils # (1.3-7.7) k/uL Lymphocytes # (1.0-4.8) k/uL BUN (9-20) mg/dL Creatinine (0.66-1.25) mg/dL Glucose (74-99) mg/dL POC Glucose (mg/dL) 226 H 163 H 144 H (75-99) mg/dL 12/14/21 12/14/21 12/14/21 Range/Units 05:03 07:41 07:41 WBC 11.9 H (3.8-10.6) k/uL MCV 102.5 H (80.0-100.0) fL Neutrophils # 10.2 H (1.3-7.7) k/uL Lymphocytes # 0.9 L (1.0-4.8) k/uL BUN 21 H (9-20) mg/dL Creatinine 0.59 L (0.66-1.25) mg/dL Glucose 158 H (74-99) mg/dL POC Glucose (mg/dL) 205 H (75-99) mg/dL Microbiology - Last 24 Hours (Table) 12/13/21 07:58 Blood Culture - Preliminary Blood No Growth after 24 hours
--- NOTE | 2021-12-14 12:15 | P.PN ---
Subjective Progress Note Date: 12/14/21 I am seeing the patient for the first time during this admission. Please refer to Dr. Roche's notes for further details. The patient stated he has right hip pain and left knee pain. He states he has bilateral hip and knee replacement. He feels he is walking better but continues to be somewhat unsteady. Dr. Roche felt probable TIA. He has COVID19 infections. Objective - Vital Signs Vital signs: Vital Signs Temp 98.2 F 12/14/21 08:00 Pulse 104 H 12/14/21 08:00 Resp 18 12/14/21 08:00 BP 123/68 12/14/21 08:00 Pulse Ox 98 12/14/21 08:00 Intake & Output 12/13/21 12/14/21 12/14/21 18:59 06:59 18:59 Intake Total 517.75 467.833 Output Total 400 1125 Balance 117.75 -1125 467.833 Weight 110.087 kg Intake: Intake, IV Titration 37.75 107.833 Amount Diltiazem 125 mg In 30 107.833 Sodium Chloride 0.9% 100 ml @ 5 MG/HR 5 mls/hr IV .Q24H [facility] Rx#:[id number] Nitroglycerin-D5w Pmx 50 7.75 mg In Dextrose/Water 1 250ml.bag @ 10 MCG/MIN 3 mls/hr IV .Q24H [facility] Rx#: [id number] Oral 480 360 Output: Urine 400 1125 Other: Voiding Method Urinal Urinal Urinal - Exam GENERAL: The patient is lying in bed and is not in acute distress. NEUROLOGICAL: Higher mental function: The patient is awake, alert, oriented to self, place and time. Patient is following commands. No aphasia and no neglect. Cranial nerves: The pupils are round, equal and reactive to light. Visual rodriguez are full to confrontation throughout. Extraocular movement is intact no nystagmus is noted. Facial sensation is normal to touch throughout. The facial strength is normal throughout. Hearing is normal bilaterally to hand rub. Tongue is midline and moved [id number] without any difficulty. No dysarthria is noted. Shoulder shrug is normal bilaterally. Motor: Gait is unsteady gait. The strength is 5 over 5 throughout. Normal tone and bulk. Cerebellum: Normal finger to nose bilaterally. Sensation: Sensation is normal to touch throughout. - Labs CBC & Chem 7: 12/14/21 07:41 12/14/21 07:41 Labs: Abnormal Lab Results - Last 24 Hours (Table) 12/13/21 12/13/21 12/14/21 Range/Units 16:42 20:09 01:07 WBC (3.8-10.6) k/uL MCV (80.0-100.0) fL Neutrophils # (1.3-7.7) k/uL Lymphocytes # (1.0-4.8) k/uL BUN (9-20) mg/dL Creatinine (0.66-1.25) mg/dL Glucose (74-99) mg/dL POC Glucose (mg/dL) 226 H 163 H 144 H (75-99) mg/dL 12/14/21 12/14/21 12/14/21 Range/Units 05:03 07:41 07:41 WBC 11.9 H (3.8-10.6) k/uL MCV 102.5 H (80.0-100.0) fL Neutrophils # 10.2 H (1.3-7.7) k/uL Lymphocytes # 0.9 L (1.0-4.8) k/uL BUN 21 H (9-20) mg/dL Creatinine 0.59 L (0.66-1.25) mg/dL Glucose 158 H (74-99) mg/dL POC Glucose (mg/dL) 205 H (75-99) mg/dL Microbiology - Last 24 Hours (Table) 12/13/21 07:58 Blood Culture - Preliminary Blood No Growth after 24 hours Assessment and Plan Assessment: * Transient inability to wak. Patient's believes that his legs were weak bilaterally, although EMS noted obvious focal left-sided weakness. His symptoms resolved in about 1-1/2-2 hours. Patient has right hip pain and left knee pain with history of bilateral hip and knee replacement. I feel this could be due to his hip and knee pain issues in addition to his underlying acute COVID-19 infection exacerbating his symptoms. Cannot exclude TIA. . * Atrial fibrillation with rapid ventricular rate, currently on Eliquis * Acute Covid-19 infection. * Bilateral hip and knee replacement * Right hip pain and left knee pain. * Hypertension * Hyperlipidemia * Osteoarthritis Plan: * MRI of the brain is pending to evaluate for an acute stroke. Pending lipid panel. * CTA revealed plaque formation an approximate 30% stenosis at the origin of both ICA. * TSH: 0.479, HbA1c: 5.6 * On his home dose of Eliquis 5mg daily and was started during this hospital stay of ASA 325mg. I decreased it to 81mg daily. Continue Lipitor 20 mg daily. * 2-D echo revealed moderate left ventricular concentric hypertrophy with preserved LV function. Mild left atrial enlargement. Sclerosis of the right leaflets with mild aortic stenosis. Aortic root dilation measuring about 4 cm. * Continue neuro-checks. * Continue telemetry monitoring. * PT, OT and SET OFF PRESS OPERATOR are consulted. * Consider Orthopedic consult for his right hip and knee pain. * Will defer the rest of medical management to the primary team. The plan is discussed with the patient. UPDATE: MRI the brain is reported as age-related changes of atrophy and chronic small vessel ischemia. No subacute ischemia evident. I personally reviewed the MRI and there is no acute or subacute ischemia. I felt the posterior horn of the lateral ventricles were bilaterally dilated. Chucho Thibodeaux M.D. Neuro-Hospitalist Time with Patient: Less than 30
--- NOTE | 2021-12-14 13:34 | P.PN ---
Subjective Progress Note Date: 12/14/21 CHIEF COMPLAINT: A. fib with RVR HISTORY OF PRESENT ILLNESS: This is a 76-year-old male with a past medical history significant for permanent atrial fibrillation, hypertension, and GERD. Patient follows in the office with Dr. Ashford. We have been asked to see the patient in consultation for A. fib with RVR. The patient presented to the hospital with a chief complaint of shortness of breath, left-sided weakness, and difficulty with his speech. The patient was found to be positive for coag. The patient was also found to be in A. fib with RVR. He was started on amiodarone drip per internal medicine. * EKG reveals A. fib with RVR * Chest xray mild pulmonary fibrotic changes appear increased compared to exam. No heart failure. * Laboratory data: WBC 6.1. Hemoglobin 13.8. Platelet count 142. D-dimer 0.56. Sodium 135. Potassium 4.3. BUN 22. Creatinine 0.88. TSH 0.479. Troponin negative 2. ProBNP 1050. * Current home cardiac medications include Eliquis 5 mg twice a day, atenolol 100 mg daily, Cardizem CD 300 mg daily, lisinopril 20 mg daily * Echocardiogram completed revealing ejection fraction 55-60% , mild left atrial enlargement, mild right ventricular dilation with mild pulmonary hypertension 12/14/2021 Patient remains hospitalized on 3 . Blood pressure 104/74. Heart rate is in the 80s. Telemetry reveals atrial fibrillation with controlled ventricular rate. PHYSICAL EXAM: Thorough physical exam not completed secondary to limited evaluation/examination due to Covid19 ASSESSMENT: Covid 19 Acute hypoxic respiratory failure, secondary to above Left-sided weakness with difficulty speaking, rule out TIA Permanent atrial fib relation with RVR Hypertension GERD Former nicotine dependence PLAN: Increase atenolol to 150 mg daily Discontinue IV Cardizem at 1400 Continue anticoagulation with Eliquis Continue telemetry monitoring Further recommendations pending patient course Nurse practitioner note has been reviewed by physician. Signing provider agrees with the documented findings, assessment, and plan of care. Objective - Vital Signs Vital signs: Vital Signs Temp 98.2 F 12/14/21 08:00 Pulse 65 12/14/21 12:00 Resp 18 12/14/21 12:00 BP 104/74 12/14/21 12:00 Pulse Ox 97 12/14/21 12:00 Intake & Output 12/13/21 12/14/21 12/14/21 18:59 06:59 18:59 Intake Total 517.75 467.833 Output Total 400 1125 Balance 117.75 -1125 467.833 Weight 110.087 kg Intake: Intake, IV Titration 37.75 107.833 Amount Diltiazem 125 mg In 30 107.833 Sodium Chloride 0.9% 100 ml @ 5 MG/HR 5 mls/hr IV .Q24H [facility] Rx#:[id number] Nitroglycerin-D5w Pmx 50 7.75 mg In Dextrose/Water 1 250ml.bag @ 10 MCG/MIN 3 mls/hr IV .Q24H [facility] Rx#: [id number] Oral 480 360 Output: Urine 400 1125 Other: Voiding Method Urinal Urinal Urinal - Labs CBC & Chem 7: 12/14/21 07:41 12/14/21 07:41 Labs: Abnormal Lab Results - Last 24 Hours (Table) 12/13/21 12/13/21 12/14/21 Range/Units 16:42 20:09 01:07 WBC (3.8-10.6) k/uL MCV (80.0-100.0) fL Neutrophils # (1.3-7.7) k/uL Lymphocytes # (1.0-4.8) k/uL BUN (9-20) mg/dL Creatinine (0.66-1.25) mg/dL Glucose (74-99) mg/dL POC Glucose (mg/dL) 226 H 163 H 144 H (75-99) mg/dL 12/14/21 12/14/21 12/14/21 Range/Units 05:03 07:41 07:41 WBC 11.9 H (3.8-10.6) k/uL MCV 102.5 H (80.0-100.0) fL Neutrophils # 10.2 H (1.3-7.7) k/uL Lymphocytes # 0.9 L (1.0-4.8) k/uL BUN 21 H (9-20) mg/dL Creatinine 0.59 L (0.66-1.25) mg/dL Glucose 158 H (74-99) mg/dL POC Glucose (mg/dL) 205 H (75-99) mg/dL 12/14/21 Range/Units 11:58 WBC (3.8-10.6) k/uL MCV (80.0-100.0) fL Neutrophils # (1.3-7.7) k/uL Lymphocytes # (1.0-4.8) k/uL BUN (9-20) mg/dL Creatinine (0.66-1.25) mg/dL Glucose (74-99) mg/dL POC Glucose (mg/dL) 133 H (75-99) mg/dL Microbiology - Last 24 Hours (Table) 12/13/21 07:58 Blood Culture - Preliminary Blood No Growth after 24 hours
--- NOTE | 2021-12-14 14:36 | MR ---
MR brain without contrast HISTORY: Recurrent TIA Multiplanar multisequence imaging through the brain, correlation to CT brain 12/13/2021 There is no restricted diffusion. Cortical atrophy is present. There is extensive confluent and scatt ered pericallosal callosal, periventricular, subcortical hyperintensity and inversion recovery T2-sarah ghted sequences. There are expected vascular flow voids. Inflammatory change present in the ethmoid a ir cells, sphenoid sinus, maxillary sinus bilaterally. Orbits show symmetric appearance. Cerebellopon alicia angles, corpus callosum, pituitary, cervical medullary junction are within normal limits. IMPRESSION: Age-related changes of atrophy and chronic small vessel ischemia. No subacute ischemia ev ident.
[2021-12-14 15:55] LABS: LDL Cholesterol,Calculated 38.2 mg/dL (0.0-131.0); VLDL Calculation 11.48 mg/dL (5.00-40.00)
[2021-12-14 16:41] LABS: Glucose,Whole Blood 139 mg/dL (75-99)
[2021-12-14 20:27] LABS: Glucose,Whole Blood 153 mg/dL (75-99)
[2021-12-15 05:38] LABS: Glucose,Whole Blood 148 mg/dL (75-99)
[2021-12-15] MEDS: THIAMINE 100 MG TAB PO SCH (06:16)
[2021-12-15] MEDS ORDERED: ASPIRIN 81 MG PO SCH (09:00)
[2021-12-15 09:42] LABS: Basophils % (A) 0 %; Eosinophils % (A) 0 %; HCT 47.4 % (39.0-53.0); HGB 15.6 gm/dL (13.0-17.5); Lymphocytes # (A) 1.2 k/uL (1.0-4.8); Lymphocytes % (A) 11 %; MCH 33.6 pg (25.0-35.0); MCHC 32.8 g/dL (31.0-37.0); MCV 102.2 fL (80.0-100.0); Macrocytosis Slight; Mean Platelet Volume 9.4; Monocytes # (A) 0.5 k/uL (0-1.0); Monocytes % (A) 4 %; Neutrophils # (A) 9.1 k/uL (1.3-7.7); Neutrophils % (A) 84 %; Platelet Count 211 k/uL (150-450); RBC 4.64 m/uL (4.30-5.90); RDW 13.9 % (11.5-15.5); WBC 10.9 k/uL (3.8-10.6)
[2021-12-15] MEDS: CHOLECALCIFEROL 25 MCG (1000 IU) TABLET PO SCH (09:55)
[2021-12-15] MEDS: APIXABAN 5 MG TAB PO SCH (09:55)
[2021-12-15] MEDS: ZINC SULFATE 220 MG CAP PO SCH (09:55)
[2021-12-15] MEDS: ATORVASTATIN 20 MG TAB PO SCH (09:55)
[2021-12-15] MEDS: FAMOTIDINE 20 MG TAB PO SCH (09:55)
[2021-12-15] MEDS: ASCORBIC ACID 500 MG TAB PO SCH (09:55)
[2021-12-15] MEDS: TRIAMCINOLONE 0.1% CREAM 80 GM TUBE TOPICAL SCH (09:56)
[2021-12-15] MEDS: DILTIAZEM CD 180 MG CAP.ER.24H PO SCH (09:56)
[2021-12-15] MEDS: atenoloL 50 MG TAB PO SCH (09:56)
[2021-12-15] MEDS: PANTOPRAZOLE 40 MG TABLET PO SCH (09:56)
[2021-12-15] MEDS: lisinopriL 20 MG TAB PO SCH (09:56)
[2021-12-15] MEDS: DEXAMETHASONE SOD PHOSPHATE 10 MG/ML 1 ML VIAL IV SCH (09:57)
[2021-12-15 10:07] LABS: ALT 56 U/L (4-49); AST 71 U/L (17-59); African American GFR (CKD) >90 (>60 ml/min/1.73 sqM); Albumin 4.1 g/dL (3.5-5.0); Alkaline Phosphatase 72 U/L (38-126); Anion Gap 11 mmol/L; Blood Urea Nitrogen 31 mg/dL (9-20); Carbon Dioxide 24 mmol/L (22-30); Chloride 106 mmol/L (98-107); Glucose 132 mg/dL (74-99); Magnesium 2.2 mg/dL (1.6-2.3); Non-African American GFR(CKD) 89 (>60 ml/min/1.73 sqM); Potassium 4.4 mmol/L (3.5-5.1); Sodium 141 mmol/L (137-145); Total Bilirubin 1.1 mg/dL (0.2-1.3); Total Protein 7.6 g/dL (6.3-8.2)
[2021-12-15 10:38] VITALS: BP 144/95; PULSE 85; RESP 18; TEMP 96.6
[2021-12-15] MEDS: FLUOROURACIL TOPICAL SCH (10:55)
[2021-12-15 11:17] LABS: Glucose,Whole Blood 123 mg/dL (75-99)
--- NOTE | 2021-12-15 13:14 | P.DS ---
Providers Date of admission: 12/13/21 04:12 Expected date of discharge: 12/15/21 Attending physician: Vu Barrera MD Consults: 12/13/21 04:13 Consult Physician Routine Consulting Provider: Lashay Roche Consult Reason/Comments: Possible TIA Do you want consulting provider notified?: Yes 12/13/21 06:54 Consult Physician Routine Consulting Provider: Yves Benito Consult Reason/Comments: pulmonary edema, afib rvr Do you want consulting provider notified?: Yes Primary care physician: [facility] Course: 76 year old male with hypertension , afib on eliquis patient was at his baseline status of health up until this weekend, when he started having upper respiratory symptoms sore throat and some coughing, however, today he was getting increasingly weak and tired, with episodes of confusion , no focal neuro deficits but he seemed to be overall weak and more lethargic. no report of fever, or chills, no report of chest pain , nausea or vomiting, no diarrhea or abd pain. patient is vaccinated and boosted against covid . tested positive on Saturday (2 days ago ). just before midnights , noticed, increase left sided weakness, confusion and slurred speech, she called EMS and upon their arrival they noted difficulty with left leg, however, he was able to stand up but not follow commands, upon arrival to ED code stroke was initially activated , CT brain was negative, and CTA showed 30% plaque in the carotids. his NIH was low / zero. patient was doing ok initially , case discussed with neuro constitutional law professor, tested positive for covid , however, was on room air and stable. admitted for monitoring and neuro consult patient denies any tobacco smoking, or drugs, admits to heavy daily alcohol drinking. no recent travel or hospitalization. he complaints of lots of aches and pains in his joints. suddenly, he started having increase work of breathing, with crackles all over his lungs, blood pressure increased. CXR did not show any increase pulmonary edema, however, patient became hypoxic down to mid 80s%, started on Bipap. and nitro drip to control his blood pressure . later, he went into afib with RVR, so he was transitioned to amiodarone , and to discontinue his nitro drip. Physical examination: General: non toxic, no distress, appears at stated age Derm: warm, dry Head: atraumatic, normocephalic, symmetric Eyes: EOMI, no lid lag, anicteric sclera Mouth: no lip lesion, mucus membranes moist Cardiovascular: S1S2 reg, no murmur, positive posterior tibial pulse bilateral, Lungs: CTA bilateral, no rhonchi, no rales , no accessory muscle use Abdominal: soft, nontender to palpation, no guarding, no appreciable organomegaly Ext: no gross muscle atrophy, no edema, no contractures Neuro: CN II-XI grossly intact, no focal neuro deficits Psych: Alert, oriented, appropriate affect Acute hypoxemic respiratory failure secondary to coronavirus associated pneumonia--resolved -Patient currently on on room air -Not a candidate for Remdesivir -Resume Decadron -Patient on Eliquis TIA -Difficulty speaking, and weakness on the left side of his body, resolved, with negative computed tomography scan of the brain and angiography CT. symptoms resolved -Neurology following -Eliquis resumed by neurology -Neurology and a baby aspirin on discharge Atrial fibrillation, chronic, with RVR. -Rate controlled -Resume Chart Blockers and Beta Blockers History of daily alcohol use. Alcohol abuse alcohol withdrawal precautions ativan per CIWA thiamine Essential hypertension History of GERD. Hyperlipidemia. History of skin cancer. Former smoker. Patient Condition at Discharge: Serious Plan - Discharge Summary Discharge Rx Participant: No New Discharge Prescriptions: New Aspirin 81 mg PO DAILY 30 Days #30 Dexamethasone [Decadron] 6 mg PO DAILY 7 Days #7 tablet Continue Diltiazem Cd [Cardizem CD] 300 mg PO DAILY Atenolol 100 mg PO DAILY Apixaban [Eliquis] 5 mg PO BID #60 tab Omeprazole 20 mg PO DAILY Atorvastatin [Lipitor] 20 mg PO DAILY HYDROcodone/APAP 7.5-325MG [Maxbass 7.5-325] 1 tab PO TID PRN PRN Reason: Pain Fluorouracil [Efudex] 1 applic TOPICAL BID Multivit-Min/Folic/Vit K/Lycop [Men's Multivitamin Tablet] 1 tab PO DAILY lisinopriL [Zestril] 20 mg PO DAILY Ibuprofen [Motrin] 800 mg PO TID PRN PRN Reason: Pain Hydrocortisone Cream [Hydrocortisone 2.5% Cream] 1 applic TOPICAL DAILY Discontinued Nirmatrelvir/Ritonavir [Paxlovid Co-Pack (Eua)] 3 tab PO DIRECTED Discharge Medication List Atenolol 100 mg PO DAILY 01/20/14 [History] Diltiazem Cd [Cardizem CD] 300 mg PO DAILY 01/20/14 [History] Apixaban [Eliquis] 5 mg PO BID #60 tab 05/29/17 [Rx] Omeprazole 20 mg PO DAILY 01/02/19 [History] Atorvastatin [Lipitor] 20 mg PO DAILY 09/22/21 [History] Multivit-Min/Folic/Vit K/Lycop [Men's Multivitamin Tablet] 1 tab PO DAILY 09/22/21 [History] lisinopriL [Zestril] 20 mg PO DAILY 10/18/21 [History] Fluorouracil [Efudex] 1 applic TOPICAL BID 12/13/21 [History] HYDROcodone/APAP 7.5-325MG [Maxbass 7.5-325] 1 tab PO TID PRN 12/13/21 [History] Hydrocortisone Cream [Hydrocortisone 2.5% Cream] 1 applic TOPICAL DAILY 12/13/21 [History] Ibuprofen [Motrin] 800 mg PO TID PRN 12/13/21 [History] Aspirin 81 mg PO DAILY 30 Days #30 12/15/21 [Rx] Dexamethasone [Decadron] 6 mg PO DAILY 7 Days #7 tablet 12/15/21 [Rx] Follow up Appointment(s)/Referral(s): Chris Rice MD [Primary Care Provider] - 1-2 days [facility] Visiting Nurse, [NON-STAFF] - Discharge Disposition: HOME SELF-CARE
--- NOTE | 2021-12-15 13:14 | P.PN ---
Subjective Progress Note Date: 12/15/21 CHIEF COMPLAINT: A. fib with RVR HISTORY OF PRESENT ILLNESS: This is a 76-year-old male with a past medical history significant for permanent atrial fibrillation, hypertension, and GERD. Patient follows in the office with Dr. Ashford. We have been asked to see the patient in consultation for A. fib with RVR. The patient presented to the hospital with a chief complaint of shortness of breath, left-sided weakness, and difficulty with his speech. The patient was found to be positive for coag. The patient was also found to be in A. fib with RVR. He was started on amiodarone drip per internal medicine. * EKG reveals A. fib with RVR * Chest xray mild pulmonary fibrotic changes appear increased compared to exam. No heart failure. * Laboratory data: WBC 6.1. Hemoglobin 13.8. Platelet count 142. D-dimer 0.56. Sodium 135. Potassium 4.3. BUN 22. Creatinine 0.88. TSH 0.479. Troponin negative 2. ProBNP 1050. * Current home cardiac medications include Eliquis 5 mg twice a day, atenolol 100 mg daily, Cardizem CD 300 mg daily, lisinopril 20 mg daily * Echocardiogram completed revealing ejection fraction 55-60% , mild left atrial enlargement, mild right ventricular dilation with mild pulmonary hypertension 12/14/2021 Patient remains hospitalized on 3 . Blood pressure 104/74. Heart rate is in the 80s. Telemetry reveals atrial fibrillation with controlled ventricular rate. 12/15/2021 Telemetry reviewed this morning revealing atrial fibrillation with a heart rate in the 90s. Patient's vital signs are stable. PHYSICAL EXAM: Thorough physical exam not completed secondary to limited evaluation/examination due to Covid19 ASSESSMENT: Covid 19 Acute hypoxic respiratory failure, secondary to above Left-sided weakness with difficulty speaking, rule out TIA Permanent atrial fibrillation with RVR Hypertension GERD Former nicotine dependence PLAN: Continue current cardiac medications Continue anticoagulation with Eliquis Continue telemetry monitoring We will sign off. Please reconsult if needed Nurse practitioner note has been reviewed by physician. Signing provider agrees with the documented findings, assessment, and plan of care. Objective - Vital Signs Vital signs: Vital Signs Temp 96.6 F L 12/15/21 08:00 Pulse 85 12/15/21 08:00 Resp 18 12/15/21 08:00 BP 144/95 12/15/21 08:00 Pulse Ox 94 L 12/15/21 08:00 Intake & Output 12/14/21 12/15/21 12/15/21 18:59 06:59 18:59 Intake Total 587.833 Balance 587.833 Intake: Intake, IV Titration 107.833 Amount Diltiazem 125 mg In 107.833 Sodium Chloride 0.9% 100 ml @ 5 MG/HR 5 mls/hr IV .Q24H [facility] Rx#:[id number] Oral 480 Other: Voiding Method Urinal Urinal Urinal # Voids 2 2 # Bowel Movements 1 - Labs CBC & Chem 7: 12/15/21 08:53 12/15/21 08:53 Labs: Abnormal Lab Results - Last 24 Hours (Table) 12/14/21 12/14/21 12/15/21 Range/Units 16:40 20:26 05:37 WBC (3.8-10.6) k/uL MCV (80.0-100.0) fL Neutrophils # (1.3-7.7) k/uL BUN (9-20) mg/dL Glucose (74-99) mg/dL POC Glucose (mg/dL) 139 H 153 H 148 H (75-99) mg/dL AST (17-59) U/L ALT (4-49) U/L 12/15/21 12/15/21 12/15/21 Range/Units 08:53 08:53 11:15 WBC 10.9 H (3.8-10.6) k/uL MCV 102.2 H (80.0-100.0) fL Neutrophils # 9.1 H (1.3-7.7) k/uL BUN 31 H (9-20) mg/dL Glucose 132 H (74-99) mg/dL POC Glucose (mg/dL) 123 H (75-99) mg/dL AST 71 H (17-59) U/L ALT 56 H (4-49) U/L Microbiology - Last 24 Hours (Table) 12/13/21 07:58 Blood Culture - Preliminary Blood No Growth after 48 hours
--- NOTE | 2021-12-15 13:19 | P.PN ---
Subjective Progress Note Date: 12/15/21 Principal diagnosis: Weakness. 76-year-old male who initially presented to the emergency department, with neurologic findings including weakness to the left side of his body, and difficulty speaking. The patient was brought into the emergency room, by EMS. Apparently those neurologic symptoms apparently improved, and the patient did have a negative computed tomography scan of the brain, and angiography CT. Subsequent to this, the patient complained of cough, shortness of breath, weakness, and he did test positive for coronavirus. He apparently also had a fever. We are asked to see him for possible ICU placement. We went down to the emergency room, and saw him in trauma room 2. The patient was on amiodarone at 1 mg a minute for atrial fibrillation with RVR, on BiPAP, with settings of 14/5 and 85%, dropped down to 60%, and saline at KVO. His saturations were 99%. His heart rate was 118 and regular, his blood pressure was 120/70, and his respiratory rate was between 26-30 breaths per minute. The patient apparently has a history of hypertension, chronic atrial fibrillation, GERD, hyperlipidemia, skin cancer, and is a former smoker. White count was 6.1, h emoglobin 13.8, hematocrit 41.6, and platelet count 142,000. D-dimer was 0.56. Fibrinogen was 391. Sodium 135, potassium 4.3, chlorides 103, CO2 24, anion gap 8, BUN 22, and creatinine 0.88. C-reactive protein was 4.6. LDH was 367. Troponin was negative 2. N-terminal proBNP was 1050. Coronavirus testing was positive. Chest x-ray showed diffuse changes, consistent with either interstitial edema or interstitial pneumonia. Progress note dated 12/14/2021. 76-year-old male seen yesterday in consultation in the emergency room. The patient seems be doing much better today. The patient's on a couple liters of oxygen. We saw him yesterday, he was on BiPAP. The patient is vaccinated ag ainst coronavirus, but did test positive. Currently laboratory includes a white count 11.9, hemoglobin 15.5, hematocrit 48.2, and a platelet count of 178,000. Sodium, potassium, chloride, CO2, are all normal. BUN is 21 with a creatinine of 0.59. He is currently on Cardizem, at 5 mg an hour, for his atrial fibrillation. He is ready on Bernie course. We added vitamin C, vitamin D3, and zinc, as well as Decadron. Progress note dated 12/15/2021. 76-year-old male, seen again in room 371. He was initially seen in the emergency room. He was admitted with a diagnosis of coronavirus infection. He is doing much better. He's currently on room air. The patient has not needed to use BiPAP therapy. He has been fully vaccinated. Current labs include a white count of 10.9, hemoglobin 15.6, hematocrit 47.4, and platelet count 211,000. Sodium potassium chloride CO2 all normal. BUN 31, and creatinine 0.74. The patient is not receiving any IV fluids. Objective - Vital Signs Vital signs: Vital Signs Temp 96.6 F L 12/15/21 08:00 Pulse 85 12/15/21 08:00 Resp 18 12/15/21 08:00 BP 144/95 12/15/21 08:00 Pulse Ox 94 L 12/15/21 08:00 Intake & Output 12/14/21 12/15/21 12/15/21 18:59 06:59 18:59 Intake Total 587.833 Balance 587.833 Intake: Intake, IV Titration 107.833 Amount Diltiazem 125 mg In 107.833 Sodium Chloride 0.9% 100 ml @ 5 MG/HR 5 mls/hr IV .Q24H [facility] Rx#:[id number] Oral 480 Other: Voiding Method Urinal Urinal Urinal # Voids 2 2 # Bowel Movements 1 - Exam No acute distress, oriented 3. Room air saturation is 94%. He appears very comfortable. HEENT examination is grossly unremarkable. Neck supple. Full range of motion. No adenopathy thyromegaly or neck vein distention. Cardiovascular examination reveals an irregular rhythm and rate. S1-S2 normal. No S3 or S4. No discernible murmur noted. Heart rate 92 bpm. Lungs reveal coarse bilateral rhonchi. No wheezes. No crackles. Breath sounds equal bilaterally. Saturations are 94% on room air.. Abdomen soft bowel sounds are heard. No masses or tenderness. Extremities are intact. Trace edema. No cyanosis or clubbing. Skin is without rash or lesion. Neurologic examination is brief but nonfocal. - Labs CBC & Chem 7: 12/15/21 08:53 12/15/21 08:53 Labs: Abnormal Lab Results - Last 24 Hours (Table) 12/14/21 12/14/21 12/15/21 Range/Units 16:40 20:26 05:37 WBC (3.8-10.6) k/uL MCV (80.0-100.0) fL Neutrophils # (1.3-7.7) k/uL BUN (9-20) mg/dL Glucose (74-99) mg/dL POC Glucose (mg/dL) 139 H 153 H 148 H (75-99) mg/dL AST (17-59) U/L ALT (4-49) U/L 12/15/21 12/15/21 12/15/21 Range/Units 08:53 08:53 11:15 WBC 10.9 H (3.8-10.6) k/uL MCV 102.2 H (80.0-100.0) fL Neutrophils # 9.1 H (1.3-7.7) k/uL BUN 31 H (9-20) mg/dL Glucose 132 H (74-99) mg/dL POC Glucose (mg/dL) 123 H (75-99) mg/dL AST 71 H (17-59) U/L ALT 56 H (4-49) U/L Microbiology - Last 24 Hours (Table) 12/13/21 07:58 Blood Culture - Preliminary Blood No Growth after 48 hours Assessment and Plan Assessment: Acute hypoxemic respiratory failure secondary to coronavirus associated pneumonia. Difficulty speaking, and weakness on the left side of his body, resolved, with negative computed tomography scan of the brain and angiography CT. Atrial fibrillation, chronic, with RVR. History of hypertension. History of GERD. Hyperlipidemia. History of skin cancer. Former smoker. History of daily alcohol use. Plan: Plan dated 12/13/2021. The patient is currently already on Eliquis. He is on Decadron 6 mg a day. We also add vitamin C, vitamin D3, and zinc. We will check a d-dimer level, and a pro-calcitonin level. The patient also received Lasix IV. We will continue to follow the patient make recommendations where appropriate. Prognosis is guarded. The patient is not a candidate for the ICU at this time. He can be safely admitted to 3 . Additional recommendations and suggestions are forthcoming. He remains on amiodarone at 1 mg a minute. He was not a candidate for REM at this time. Cardiology has been consulted. Plan dated 12/14/2021. The patient was seen yesterday in the emergency department. Yesterday, he was on BiPAP. Today, he is on nasal cannula. He remains on Cardizem 5 mg an hour. The patient was given Decadron, vitamin C, vitamin D3, and zinc. The patient was ready on Bernie course for his atrial fibrillation. Clinically he looks much better today than he was yesterday. The patient is sitting up in a chair. He is not manifesting any signs or symptoms of respiratory distress. Cardiology is currently on the case. Plan dated 12/15/2021. The patient looks very well today. He is on room air. Saturations are 94%. The patient was on Cardizem, but that has been discontinued. He remains on vitamins, and Decadron. The patient's labs, x-rays, medications are reviewed. The patient did not use BiPAP last night. The patient could be considered for discharge from the hospital in the near future. No additional recommendations are made at this time. Time with Patient: Less than 30
--- NOTE | 2021-12-15 15:35 | P.PN ---
Subjective Progress Note Date: 12/15/21 The patient is seen at bedside and continues to be feeling well. Denies of any new neurological issues. Objective - Vital Signs Vital signs: Vital Signs Temp 96.6 F L 12/15/21 08:00 Pulse 85 12/15/21 08:00 Resp 18 12/15/21 08:00 BP 144/95 12/15/21 08:00 Pulse Ox 94 L 12/15/21 08:00 Intake & Output 12/14/21 12/15/21 12/15/21 18:59 06:59 18:59 Intake Total 587.833 240 Balance 587.833 240 Intake: Intake, IV Titration 107.833 Amount Diltiazem 125 mg In 107.833 Sodium Chloride 0.9% 100 ml @ 5 MG/HR 5 mls/hr IV .Q24H [facility] Rx#:[id number] Oral 480 240 Other: Voiding Method Urinal Urinal Urinal # Voids 2 2 120 # Bowel Movements 1 - Exam GENERAL: The patient is lying in bed and is not in acute distress. NEUROLOGICAL: Higher mental function: The patient is awake, alert, oriented to self, place and time. Patient is following commands. No aphasia and no neglect. Cranial nerves: The pupils are round, equal and reactive to light. Visual rodriguez are full to confrontation throughout. Extraocular movement is intact no nystagmus is noted. Facial sensation is normal to touch throughout. The facial strength is normal throughout. Hearing is normal bilaterally to hand rub. Tongue is midline and moved [id number] without any difficulty. No dysarthria is noted. Shoulder shrug is normal bilaterally. Motor: Gait is unsteady gait. The strength is 5 over 5 throughout. Normal tone and bulk. Cerebellum: Normal finger to nose bilaterally. Sensation: Sensation is normal to touch throughout. - Labs CBC & Chem 7: 12/15/21 08:53 12/15/21 08:53 Labs: Abnormal Lab Results - Last 24 Hours (Table) 12/14/21 12/14/21 12/15/21 Range/Units 16:40 20:26 05:37 WBC (3.8-10.6) k/uL MCV (80.0-100.0) fL Neutrophils # (1.3-7.7) k/uL BUN (9-20) mg/dL Glucose (74-99) mg/dL POC Glucose (mg/dL) 139 H 153 H 148 H (75-99) mg/dL AST (17-59) U/L ALT (4-49) U/L 12/15/21 12/15/21 12/15/21 Range/Units 08:53 08:53 11:15 WBC 10.9 H (3.8-10.6) k/uL MCV 102.2 H (80.0-100.0) fL Neutrophils # 9.1 H (1.3-7.7) k/uL BUN 31 H (9-20) mg/dL Glucose 132 H (74-99) mg/dL POC Glucose (mg/dL) 123 H (75-99) mg/dL AST 71 H (17-59) U/L ALT 56 H (4-49) U/L Microbiology - Last 24 Hours (Table) 12/13/21 07:58 Blood Culture - Preliminary Blood No Growth after 48 hours Assessment and Plan Assessment: * Transient inability to wak. Patient's believes that his legs were weak bilaterally, although EMS noted obvious focal left-sided weakness. His symptoms resolved in about 1-1/2-2 hours. Patient has right hip pain and left knee pain with history of bilateral hip and knee replacement. I feel this could be due to his hip and knee pain issues in addition exacerbated due to his underlying acute COVID-19 infection. MRI brain is negative for stroke. I feels TIA is unlikely. * Atrial fibrillation with rapid ventricular rate, currently on Eliquis * Acute Covid-19 infection. * Bilateral hip and knee replacement * Right hip pain and left knee pain. * Hypertension * Hyperlipidemia * Osteoarthritis Plan: * MRI the brain is reported as age-related changes of atrophy and chronic small vessel ischemia. No subacute ischemia evident. I personally reviewed the MRI and there is no acute or subacute ischemia. I felt the posterior horn of the lateral ventricles were bilaterally dilated. * Lipid panel: Triglyceride 57, cholesterol of 105, LDL 38 and HDL of 55. * CTA revealed plaque formation an approximate 30% stenosis at the origin of both ICA. * TSH: 0.479, HbA1c: 5.6 * On his home dose of Eliquis 5mg daily and ASA 81mg daily was started during hospital stay since TIA could not be excluded. Recommend continuing ASA for total 21 days then discontinuing it. Continue Lipitor 20 mg daily. * 2-D echo revealed moderate left ventricular concentric hypertrophy with preserved LV function. Mild left atrial enlargement. Sclerosis of the right leaflets with mild aortic stenosis. Aortic root dilation measuring about 4 cm. * Continue neuro-checks. * Continue telemetry monitoring. * PT, OT and PIPING MANAGER are consulted. * Consider Orthopedic consult for his right hip and knee pain. * Will defer the rest of medical management to the primary team. The plan is discussed with the patient, his at bedside.. Chucho Thibodeaux M.D. Neuro-Hospitalist Time with Patient: Less than 30
== END 2021-12-15 14:52 | disposition home or self-care (01) | DRG 177 ==
LOC: EC 01:26 → 3SCARD 04:12
PROVIDERS: ADMIT Internal Medicine; ATTEND Internal Medicine
PROC: HZ2ZZZZ Detoxification Services for Substance Abuse Treatment (ICD-10-PCS; principal; 2021-12-13)
DX: U07.1 COVID-19 (principal); J12.82 Pneumonia due to coronavirus disease 2019; J96.01 Acute respiratory failure with hypoxia; G45.9 Transient cerebral ischemic attack, unspecified; I48.21 Permanent atrial fibrillation; J81.1 Chronic pulmonary edema; F10.10 Alcohol abuse, uncomplicated; R00.0 Tachycardia, unspecified; R47.89 Other speech disturbances; I27.20 Pulmonary hypertension, unspecified; G31.89 Other specified degenerative diseases of nervous system; I65.23 Occlusion and stenosis of bilateral carotid arteries; E78.5 Hyperlipidemia, unspecified; I10 Essential (primary) hypertension; K21.9 Gastro-esophageal reflux disease without esophagitis; M19.90 Unspecified osteoarthritis, unspecified site; R29.810 Facial weakness; Z79.01 Long term (current) use of anticoagulants; Z79.899 Other long term (current) drug therapy; Z80.3 Family history of malignant neoplasm of breast; Z85.828 Personal history of other malignant neoplasm of skin; Z87.891 Personal history of nicotine dependence; Z96.643 Presence of artificial hip joint, bilateral; Z96.653 Presence of artificial knee joint, bilateral
CPT/HCPCS: 36415; 70450; 70496; 70498; 70551; 71045; 80053; 80061; 82728; 83036; 83615; 83735; 83880; 84145; 84443; 84484; 85025; 85379; 85384; 85610; 85730; 86140; 87040; 87635; 93005; 93306; 94660; 94760; 96361; 96365; 96366; 96367; 96368; 96375; 99285

== ENCOUNTER → 2021-12-25 | Outpatient (CLI) | payer MEDICARE ==
--- NOTE | 2021-12-25 09:09 | P.PN ---
Subjective Progress Note Date: 12/25/21 Principal diagnosis: A 76 yr old male with at side with a history of severe and chronic low back pain secondary to lumbar degenerative disc diseases and lumbar spondylosis with facet arthropathy presents today for evaluation status post right RFA of L4-L5, L5-S1. He states he expressed 10% pain relief status post procedure. Pain level is currently at 7 out of 10 in intensity, localized to the right aspect of his lumbar spine with radiation of pain to the anterior hip. Pain waxes and wanes in intensity with activity like standing and walking for periods of 10 minutes or more. Pain is alleviated with medications, topical, injections, heat, use of a cane for ambulation, reclining and rest. Interventional pain procedures completed include RFA right L3-5 Patient is currently on [place], ibuprofen. Patient denies any side effects of the medication(s), denies excessive drowsiness or sleepiness, denies suicidal ideation and reports that the current pain medication is helping to control the pain and improve activities of daily living. Patient denies any motor or sensory deficits. Patient denies any fever or night sweats, denies any change in the bowel movements or urination. Physical Examination: -Constitutional: Cooperative. Not in acute distress . -HEENT: Neck is supple. No lymphadenopathy. No thyromegaly. Normal thyroid size. Eyes: No ptosis , no icterus, no photophobia. ENT: No auditory deficits. Normal oropharynx. No Thrush. - Respiratory: Chest clear to auscultations bilaterally. No wheezing. No rhonchi. - Cardiovascular: Regular rate and rhythm. S1 / S2 , no S3 , no S4. - Gastrointestinal: Abdomen soft no tenderness. Bowel sounds positive in all four quadrants. No organomegaly. - Genitourinary: Deferred. - Neurologic: Cranial nerve II to XII intact. No focal neurological deficits. - Psychatric: Alert & oriented x 3. Matching mood & appropriate affect. Judgment and insight intact. - Lymphatic: No Lymphadenopathy. - Musculoskeletal: Cervical spine: Muscle bulk/ tone/ strength in the bilateral upper extremities normal. Facet loading test cervical area positive. Lumbar spine: Motor bulk/ tone/ strength lower extremities , thigh and legs : 5/5 Deep tendon reflexes : Normal Knee Jerk. Normal Ankle Jerk . Vertebral body tenderness to palpation over L2, L3 Lumbar Facet Loading Test positive Straight Leg Raise: positive at 30 degrees right side/ left side Gaenslen's Test positive Sacral spine : Severe tenderness over the Sacroiliac joint: right side / left side Range of motion: Flexion of the lumbar spine <60 degrees Range of motion: Extension of the lumbar spine <20 degrees Gaenslen's Test positive Nickie test: positive right side / left side Assessment and plan: Chronic low back pain secondary to lumbar degenerative disc disease , lumbar spondylosis with facet arthropathy without myelopathy Recommendation of right TF AQUILES of L2-L3. May need a series of injections, up to through with her 6 month., For optimal pain relief. Risks, benefits of procedure discussed and patient verbalized understanding. Admits to aspirin 81 mg use and denies medical history of diabetes. All patient questions answered MAPS reviewed and it was appropriate. I have spent 31 minutes on patient care today. Dr Sigala was available by phone for the evaluation of this patient. The time was used to review the medical records including relevant urine studies and Prescription history (MAPs), review of the available imaging, evaluation and examination of the patient, coordination of care with the medical staff and if applicable referring physicians, as well as creation of the medical record PQRS Measure Charge Sheet PQRS Narrative: Smoking Status Former smoker Hx Alcohol Use (MH) No Home Medications: Ambulatory Orders Atenolol 100 mg PO DAILY 01/20/14 Diltiazem Cd [Cardizem CD] 300 mg PO DAILY 01/20/14 Apixaban [Eliquis] 5 mg PO BID #60 tab 05/29/17 Omeprazole 20 mg PO DAILY 01/02/19 Atorvastatin [Lipitor] 20 mg PO DAILY 09/22/21 Multivit-Min/Folic/Vit K/Lycop [Men's Multivitamin Tablet] 1 tab PO DAILY 09/22/21 lisinopriL [Zestril] 20 mg PO DAILY 10/18/21 Fluorouracil [Efudex] 1 applic TOPICAL BID 12/13/21 HYDROcodone/APAP 7.5-325MG [[place] 7.5-325] 1 tab PO TID PRN 12/13/21 Hydrocortisone Cream [Hydrocortisone 2.5% Cream] 1 applic TOPICAL DAILY 12/13/21 Ibuprofen [Motrin] 800 mg PO TID PRN 12/13/21 Aspirin 81 mg PO DAILY 30 Days #30 12/15/21 Dexamethasone [Decadron] 6 mg PO DAILY 7 Days #7 tablet 12/15/21
[2021-12-25 09:26] VITALS: BP 118/77; PULSE 66; RESP 18; TEMP 98.1
== END | disposition home or self-care (01) ==
LOC: PNWHC3 08:07
PROVIDERS: ATTEND Specialist
DX: M47.896 Other spondylosis, lumbar region (principal)
CPT/HCPCS: 99211

== ENCOUNTER 2022-06-16 09:48 | Inpatient (IN) | payer MEDICARE ==
[2022-06-16] MEDS ORDERED: MORPHINE SULFATE 4 MG/ML SYRINGE IVP STA (10:07)
--- NOTE | 2022-06-16 10:12 | ED ---
General Adult HPI - General Chief complaint: Extremity Injury, Lower Stated complaint: Fall, hip pain Time Seen by Provider: 06/16/22 09:57 Source: patient Mode of arrival: wheelchair Limitations: no limitations - History of Present Illness Initial comments: Patient is a 77-year-old male presenting with chief complaint of left hip pain. Patient tripped and fell 2 days ago. He denies any headache injury or loss of consciousness, he is on Eliquis. Patient has history of bilateral hip and knee replacements. Patient states that the pain is 10 out of 10, patient normally walks assisted by a cane, he is having extreme difficulty with ambulation. No numbness or tingling. No low back pain. No chest pain or difficulty breathing. No fever or chills. No redness or swelling. - Related Data Home Medications Medication Instructions Recorded Confirmed Atenolol 100 mg PO DAILY 01/20/14 06/16/22 Diltiazem Cd [Cardizem CD] 300 mg PO DAILY 01/20/14 06/16/22 Omeprazole 20 mg PO DAILY 01/02/19 06/16/22 Atorvastatin [Lipitor] 20 mg PO DAILY 09/22/21 06/16/22 Multivit-Min/Folic/Vit K/Lycop 1 tab PO DAILY 09/22/21 06/16/22 [Men's Multivitamin Tablet] lisinopriL [Zestril] 20 mg PO DAILY 10/18/21 06/16/22 HYDROcodone/APAP 7.5-325MG [[place] 1 tab PO TID PRN 12/13/21 06/16/22 7.5-325] Ibuprofen [Motrin] 800 mg PO TID PRN 12/13/21 06/16/22 Furosemide [Lasix] 20 mg PO DAILY 06/16/22 06/16/22 Sildenafil Citrate [Sildenafil] 20 mg PO DAILY 06/16/22 06/16/22 Spironolactone [Aldactone] 12.5 mg PO DAILY 06/16/22 06/16/22 Previous Rx's Medication Instructions Recorded Apixaban [Eliquis] 5 mg PO BID #60 tab 05/29/17 Allergies Allergy/AdvReac Type Severity Reaction Status Date / Time No Known Allergies Allergy Verified 06/16/22 14:10 Review of Systems ROS Statement: Those systems with pertinent positive or pertinent negative responses have been documented in the HPI. ROS Other: All systems not noted in ROS Statement are negative. Past Medical History Past Medical History: Atrial Fibrillation, Cancer, GERD/Reflux, Hyperlipidemia, Hypertension, Osteoarthritis (OA) Additional Past Medical History / Comment(s): Covid + 12/11/21, diverticular disease, bleeding duodenal ulcer, gastritis, hemorrhoids, chronic low back pain, vertigo at times, skin cancer with removal. History of Any Multi-Drug Resistant Organisms: None Reported Past Surgical History: Appendectomy, Joint Replacement, Orthopedic Surgery, Tonsillectomy Additional Past Surgical History / Comment(s): Total L/R knee arthroplasy, bilateral total hip arthroplasties, bilateral carpal tunnel releases, L foot bone removed/hardware since removed and had spacer placed, steroid back injections, colonoscopies, basal cell skin cancer removed. Past Anesthesia/Blood Transfusion Reactions: No Reported Reaction Additional Past Anesthesia/Blood Transfusion Reaction / Comment(s): . Past Psychological History: No Psychological Hx Reported Smoking Status: Former smoker - Past Family History Brother(s) Family Medical History: Cancer Mother Family Medical History: Cancer Additional Family Medical History / Comment(s): Mother lived to be 90yrs old. breast cancer Father Family Medical History: No Reported History Additional Family Medical History / Comment(s): Father lived to be in his early 80's. General Exam Limitations: no limitations General appearance: alert, in no apparent distress Head exam: Present: atraumatic, normocephalic, normal inspection Eye exam: Present: normal appearance, PERRL, EOMI. Absent: scleral icterus, conjunctival injection, periorbital swelling Neck exam: Present: normal inspection Respiratory exam: Present: normal lung sounds bilaterally. Absent: respiratory distress, wheezes, rales, rhonchi, stridor Cardiovascular Exam: Present: regular rate, normal rhythm, normal heart sounds. Absent: systolic murmur, diastolic murmur, rubs, gallop, clicks Extremities exam: Present: normal inspection, normal capillary refill. Absent: full ROM, tenderness Neurological exam: Present: alert, oriented X3, CN II-XII intact Psychiatric exam: Present: normal affect, normal mood Skin exam: Present: warm, dry, intact, normal color. Absent: rash Course Vital Signs 06/16/22 06/16/22 09:52 12:36 Temperature 98.7 F Pulse Rate 70 67 Respiratory 16 18 Rate Blood Pressure 113/64 118/72 O2 Sat by Pulse 98 99 Oximetry Medical Decision Making - Medical Decision Making Patient is a 77-year-old male presenting with chief complaint of left hip pain. Patient fell 2 days ago onto the left hip. Patient has history of bilateral hip and knee replacements, his surgeon is Dr. Hough. He has been unable to ambulate without extensive assistance. X-ray was negative for any acute fracture or dislocation. We tended to ambulate the patient but this still proved to be extremity challenging even after analgesia with morphine. CT of the pelvis shows acute minimally displaced fracture through the anterior lateral portion of the left proximal femur intertrochanteric level is noted. I spoke with Dr. Zepeda who was on-call for orthopedic associates, he accepted admission of this patient. Medicine was consulted. Patient is agreeable with this plan. I discussed this case with my attending Dr. Minor Disposition Clinical Impression: Fracture of hip Disposition: ADMITTED IP TO THIS [facility] Condition: Fair Time of Disposition: 13:32 Decision to Admit Reason: Admit from EC Decision Date: 06/16/22 Decision Time: 13:32
--- NOTE | 2022-06-16 10:47 | XR ---
EXAMINATION TYPE: XR Hip LT and AP Pelvis DATE OF EXAM: 06/16/2022 COMPARISON: NONE HISTORY: Fall injury with pelvic and left hip pain TECHNIQUE: A single AP view of the pelvis is obtained. Two views of the left hip are obtained. FINDINGS: Metallic artifact from bilateral hip arthroplasty is present. Position satisfactory. Hetero topic ossification around left prosthesis is noted. No acute displaced fracture in the pelvis or left hip. Sacroiliac joints are preserved. Pubic symphysis is intact. Overlying soft tissue is unremarkab le. IMPRESSION: There is no acute fracture or dislocation in the pelvis or left hip.
--- NOTE | 2022-06-16 10:51 | CT ---
EXAMINATION TYPE: CT brain cspine wo con DATE OF EXAM: 06/16/2022 COMPARISON: CT brain December 13, 2021 HISTORY: Falling injury with headache and neck pain CT DLP: 1657.4 mGycm. Automated Exposure Control for Dose Reduction was Utilized. TECHNIQUE: CT scan of the head and cervical spine are performed without contrast. FINDINGS: There is no acute intracranial hemorrhage or midline shift identified. Mild ventricular a nd sulcal prominence redemonstrated. Moderate to severe low-attenuation in the deep and periventricul ar white matter is again seen. The calvarium is intact. Redemonstration of nearly completely opacifie d right sphenoid sinus with thickened sclerotic wall. Globes are intact bilaterally. Cervical spine is visualized in its entirety from C1 through upper thoracic levels and demonstrates g rade 1 retrolisthesis C5 on C6 without evidence of acute fracture or dislocation. Prevertebral soft tissue appears within normal limits. The C1-C2 articulation is within normal limits on the coronal i mages. Vertebral body heights are maintained. Moderate multilevel disc space narrowing and spurring with relative sparing of C4-C5 level. Posterior spur disc efface the anterior thecal sac at C3-C4 charo ng with C5-C6 and C6-C7 levels. Axial images show multilevel uncovertebral facet degenerative changes contributing to multilevel bilateral neural foraminal narrowing greatest at C3-C4 through the C5-C6 levels. Thyroid gland appears within normal limits. Lung apices show no pneumothorax. IMPRESSION: 1. There is no acute fracture or dislocation evident in the cervical spine. 2. No acute intracranial hemorrhage or midline shift is seen.
--- NOTE | 2022-06-16 12:54 | CT ---
EXAMINATION TYPE: CT pelvis wo con DATE OF EXAM: 06/16/2022 COMPARISON: Pelvic and left hip x-ray earlier today HISTORY: Left hip pain, cannot ambulate CT DLP: 669.6 mGycm Automated exposure control for dose reduction was used. CT pelvis without contrast. FINDINGS: No acute displaced fracture in the pelvis. Metallic hardware from left hip surgery redemonstrated and stable in satisfactory in position. There is new acute fracture or bony fragmentation through the an terior aspect of the proximal left femur seen sagittal images 106 through 101 extending laterally charo ng the anterior aspect of the intramedullary rupinder confirmed best on axial image 70. Heterotopic ossifi cation superior to this is redemonstrated. Metallic prosthesis does not break through cortex. There i s [id number] ill-defined fluid at site of fracture surrounding the deeper muscles. No well-form ed fluid collection or hematoma seen. Incidental Note is made of narrow neck large ventral wall possible umbilical hernia containing fat an d tiny mesenteric vessels axial image 18. IMPRESSION: As above. Acute minimally displaced fracture through the anterolateral portion of the lef t proximal femur intertrochanteric level is noted.
[2022-06-16] MEDS ORDERED: MORPHINE SULFATE 4 MG/ML SYRINGE IV PRN (13:29)
[2022-06-16] MEDS ORDERED: NALOXONE 0.4 MG/ML 1 ML VIAL IV PRN ×2 (13:29→19:16)
[2022-06-16] MEDS ORDERED: HYDROcodone/APAP 7.5-325MG 1 EACH TAB PO PRN (17:05)
--- NOTE | 2022-06-16 17:46 | XR ---
EXAMINATION TYPE: XR chest 1V portable DATE OF EXAM: 06/16/2022 COMPARISON: 12/13/2021 HISTORY: Pain TECHNIQUE: Single view FINDINGS: Heart is normal. Lungs are clear of consolidation. There are no hilar masses. There are lydia st leads. No pleural effusion. There is some coarsening of interstitial markings. No heart failure. IMPRESSION: Mild pulmonary fibrosis. There is clearing of interstitial edema to a large extent compar ed to old exam.
[2022-06-16 18:00] LABS: ALT 30 U/L (4-49); AST 21 U/L (17-59); African American GFR (CKD) >90 (>60 ml/min/1.73 sqM); Albumin 3.6 g/dL (3.5-5.0); Albumin/Globulin Ratio 1.4; Alkaline Phosphatase 95 U/L (38-126); Anion Gap 10 mmol/L; Blood Urea Nitrogen 19 mg/dL (9-20); Calcium 8.8 mg/dL (8.4-10.2); Carbon Dioxide 21 mmol/L (22-30); Chloride 105 mmol/L (98-107); Globulin 2.6 g/dL; Glucose 116 mg/dL (74-99); Non-African American GFR(CKD) >90 (>60 ml/min/1.73 sqM); Potassium 4.4 mmol/L (3.5-5.1); Sodium 136 mmol/L (137-145); Total Bilirubin 0.8 mg/dL (0.2-1.3); Total Protein 6.2 g/dL (6.3-8.2)
[2022-06-16] MEDS ORDERED: MAGNESIUM HYDROXIDE 2,400 MG/10 ML CUP PO PRN (19:16)
[2022-06-16] MEDS ORDERED: ONDANSETRON 4 MG/2 ML VIAL IVP PRN (19:16)
[2022-06-16] MEDS ORDERED: HYDROcodone/APAP 5-325MG 1 EACH TAB PO PRN (19:16)
--- NOTE | 2022-06-17 08:49 | P.HPOR ---
History of Present Illness H&P Date: 06/17/22 Chief Complaint: Left hip pain status post fall Patient is seen and examined at bedside. He is a very pleasant 77-year-old male who sustained an injury yesterday. Apparently he was just getting some cleaning products out of his closet at home and he was backing up and tripped and fell backwards onto his left hip. He had sudden acute pain at his left hip. He denies loss consciousness denies any other injury. He had a great deal of difficulty trying to get up and presented to the emergency room due to his left hip pain. The patient had history of total hip replacement more than [address] Hough. He is also had a right hip replacement and bilateral knee replacements with Dr. Hough. Patient has been doing quite well but has been doing some physical therapy with his back and legs recently. He is normally a community ambulator and occasionally uses assistance with a cane or a walker. The patient lives at home with his in their own home. Currently he does not feel like he can get out of bed or stand up on his own due to his left hip. He has significant difficulty moving his left hip. He denies any headaches or loss consciousness. Denies any chest pain shortness breath. Denies any significant other pain in his hip on the left side. Pain is mainly on the lateral aspect of his left hip. It does not radiate down his leg. It is painful with motion and trying to weight on it. Review of Systems As stated per HPI. Denies any chest pain service breath. Denies any nausea vomiting. Denies any change in bowel bladder function. Denies numbness tingling in his lower extremity. His pain with motion in his left leg and when he tries to mobilize left leg. The pain is mainly in the lateral aspect of his thigh. There is no groin pain. Past Medical History Past Medical History: Atrial Fibrillation, Cancer, GERD/Reflux, Hyperlipidemia, Hypertension, Osteoarthritis (OA) Additional Past Medical History / Comment(s): Covid + 12/11/21, diverticular disease, bleeding duodenal ulcer, gastritis, hemorrhoids, chronic low back pain, vertigo at times, skin cancer with removal. Left hip replacement greater than 10 years ago. History of right hip replacement and bilateral total knee replacements History of Any Multi-Drug Resistant Organisms: None Reported Past Surgical History: Appendectomy, Joint Replacement, Orthopedic Surgery, Tonsillectomy Additional Past Surgical History / Comment(s): Total L/R knee arthroplasy, bilateral total hip arthroplasties, bilateral carpal tunnel releases, L foot bone removed/hardware since removed and had spacer placed, steroid back injections, colonoscopies, basal cell skin cancer removed. Past Anesthesia/Blood Transfusion Reactions: No Reported Reaction Additional Past Anesthesia/Blood Transfusion Reaction / Comment(s): . Past Psychological History: No Psychological Hx Reported Additional Psychological History / Comment(s): Pt resides with his spouse. He uses a cane. He is independent. Smoking Status: Former smoker Past Alcohol Use History: Daily Additional Past Alcohol Use History / Comment(s): Pt started smoking in 1968 and quit in 1988. He drinks 2-3 drinks with whiskey per day. Past Drug Use History: None Reported - Past Family History Brother(s) Family Medical History: Cancer Mother Family Medical History: Cancer Additional Family Medical History / Comment(s): Mother lived to be 90yrs old. breast cancer Father Family Medical History: No Reported History Additional Family Medical History / Comment(s): Father lived to be in his early 80's. Medications and Allergies Home Medications Medication Instructions Recorded Confirmed Type Atenolol 100 mg PO DAILY 01/20/14 06/16/22 History Diltiazem Cd [Cardizem CD] 300 mg PO DAILY 01/20/14 06/16/22 History Apixaban [Eliquis] 5 mg PO BID #60 tab 05/29/17 06/16/22 Rx Omeprazole 20 mg PO DAILY 01/02/19 06/16/22 History Atorvastatin [Lipitor] 20 mg PO DAILY 09/22/21 06/16/22 History Multivit-Min/Folic/Vit K/Lycop 1 tab PO DAILY 09/22/21 06/16/22 History [Men's Multivitamin Tablet] lisinopriL [Zestril] 20 mg PO DAILY 10/18/21 06/16/22 History HYDROcodone/APAP 7.5-325MG [[place] 1 tab PO TID PRN 12/13/21 06/16/22 History 7.5-325] Ibuprofen [Motrin] 800 mg PO TID PRN 12/13/21 06/16/22 History Furosemide [Lasix] 20 mg PO DAILY 06/16/22 06/16/22 History Sildenafil Citrate [Sildenafil] 20 mg PO DAILY 06/16/22 06/16/22 History Spironolactone [Aldactone] 12.5 mg PO DAILY 06/16/22 06/16/22 History Allergies Allergy/AdvReac Type Severity Reaction Status Date / Time No Known Allergies Allergy Verified 06/16/22 14:10 Physical Examination Osteopathic Statement: *. No significant issues noted on an osteopathic structural exam other than those noted in the History and Physical/Consult. - Hip left Gait: other (The patient is not able to stand up and walk and is on.) Tenderness with palpation: lateral (Tenderness over the greater trochanter on the left. There is no ecchymosis there is no lacerations or bleeding or skin changes. He has some pain primarily at the lateral aspect toward his greater trochanter with internal/external rotation. No groin pain with internal/external rotation), greater trochanter (His greater trochanter is ten aaron with palpation. He is able to gently flex his knee in bed but has difficulty with N pain around his greater trochanter. His knee is nontender his thigh and calf soft nontender he has sustained dorsal flexion plantar flexion and EHL. The right lower extremity has g) Pain with motion: other (Right lower extremity has no pain with active and passive range of motion. The scars are well-healed at his right hip and bilateral knees.) Results - Labs Labs: Abnormal Lab Results - Last 24 Hours (Table) 06/16/22 Range/Units 17:32 Sodium 136 L (137-145) mmol/L Carbon Dioxide 21 L (22-30) mmol/L Creatinine 0.62 L (0.66-1.25) mg/dL Glucose 116 H (74-99) mg/dL Total Protein 6.2 L (6.3-8.2) g/dL Result Diagrams: 06/16/22 17:32 - Diagnostic results Hip x-ray: report reviewed, image reviewed (Hip x-rays show bilateral total hip arthroplasties. The stems. A be intact and stable. There is no dislocation. There is cortical disruption at the lateral aspect of the greater trochanter. It is minimally displaced.) Hip MRI: report reviewed Hip CT: report reviewed (CT of left hip shows the fracture line around the greater trochanter. The stem appears to be intact at the left hip prosthesis. It is minimally displaced fracture at the greater trochanter), image reviewed Assessment and Plan Assessment: Acute traumatic periprosthetic left greater trochanter fracture minimally displaced Neurologically and vascularly intact Left hip pain due to fall and fracture History of left total hip arthroplasty greater than 10 years ago which appears to be stable History right total hip arthroplasty and bilateral total knee replacements Plan: Acute traumatic periprosthetic left greater trochanter fracture minimally displaced Neurologically and vascularly intact Left hip pain due to fall and fracture History of left total hip arthroplasty greater than 10 years ago which appears to be stable History right total hip arthroplasty and bilateral total knee replacements The patient sustained a fall and has an acute fracture at his greater trochanter with periprosthetic fracture on the left. Fortunately the stem appears to be intact and stable without evidence of loosening. There is no dislocation. The fracture is minimally displaced and it appears to be relatively stable. Patient is having significant pain at the area but I think that we will be able start him mobilizing and I do not think that this will require surgical intervention. The fracture should do well with conservative treatment and management. It is okay for him to try to mobilize with physical therapy. He should try to limit his weightbearing and will start him nonweightbearing left lower extremity with just toe-touch for balance. He'll start to mobilize and transfer and ambulate with physical therapy. If he is able to do this safely he may be able to be discharged home tomorrow however he'll need to be safe with his mobility before he can go home. We will have physical therapy see him. We do not have plans for surgical intervention at this point. If the fracture can stay in its current position and the stem remains intact and stable been this can heal well with conservative management without surgery. I discussed this with him at length. We discussed the risks of his injury and issues with the stem and the position of the fracture. It is okay for the patient to eat and resume his regular medications including blood thinners. Hopefully he will mobilize well with physical therapy and he will be able to be discharged home with conservative care.
[2022-06-17] MEDS: ATORVASTATIN 20 MG TAB PO SCH (09:43)
[2022-06-17] MEDS: MULTIVITAMINS, THERA 1 EACH TAB PO SCH (09:43)
[2022-06-17] MEDS: DILTIAZEM CD 300 MG CAP.ER.24H PO SCH (09:43)
[2022-06-17] MEDS: lisinopriL 20 MG TAB PO SCH (09:43)
[2022-06-17] MEDS: atenoloL 50 MG TAB PO SCH (09:44)
[2022-06-17] MEDS: FUROSEMIDE 20 MG TAB PO SCH (09:44)
[2022-06-17] MEDS: SPIRONOLACTONE 25 MG TAB PO SCH (09:44)
[2022-06-17] MEDS: PANTOPRAZOLE 40 MG TABLET PO SCH (09:44)
[2022-06-17] MEDS: SILDENAFIL 20 MG TAB PO SCH (09:44)
[2022-06-17 11:51] LABS: African American GFR (CKD) 99.2 (60.0-200.0); Albumin 3.9 g/dL (3.8-4.9); Albumin/Globulin Ratio 1.7 (1.60-3.17); Anion Gap 8.1 mmol/L (10.00-18.00); BUN/Creat Ratio 13.63 Ratio (12.00-20.00); Blood Urea Nitrogen 10.9 mg/dL (9.0-27.0); Calcium 9.3 mg/dL (8.7-10.3); Carbon Dioxide 24.9 mmol/L (20.0-27.5); Globulin 2.3 g/dL (1.6-3.3); Non-African American GFR(CKD) 85.6 (60.0-200.0); Potassium 4.3 mmol/L (3.5-5.5); Total Bilirubin 1.2 mg/dL (0.30-1.20); Total Protein 6.2 g/dL (6.2-8.2)
[2022-06-17] MEDS: HYDROcodone/APAP 5-325MG 1 EACH TAB PO PRN (16:10)
[2022-06-17 18:33] LABS: Appearance,Urine Clear (Clear); Bilirubin,Urine Negative (Negative); Blood,Urine Negative (Negative); Color,Urine Yellow; Glucose,Urine (UA) Negative (Negative); Ketones,Urine Negative (Negative); Leukocyte Esterase,Urine Trace (Negative); Mucus,Urine Rare /hpf; Nitrite,Urine Negative (Negative); PH, Urine 6.5 (5.0-8.0); Protein,Urine Negative (Negative); RBC,Urine <1 /hpf (0-5); Urobilinogen,Urine <2.0 mg/dL (<2.0); WBC,Urine 4 /hpf (0-5)
--- NOTE | 2022-06-18 00:19 | CONS ---
CONSULTATION REASON FOR CONSULTATION: Advice regarding atrial fibrillation and other medical issues, requested by Orthopedic Surgery. HISTORY OF PRESENT ILLNESS: This 77-year-old gentleman with the past medical history of atrial fibrillation, hypertension, hyperlipidemia, and multiple medical issues, being followed by Dr. Rice in the outpatient setting. He was admitted after a tripping and falling episode about 2 days ago. The patient had a history of bilateral knee and hip replacement by . The evaluation showed minimally displaced fracture through the anterolateral portion of the left proximal femur, and the patient was admitted for further evaluation. There is no history of any fever, rigors, or chills. PAST MEDICAL HISTORY: Reviewed and include atrial fibrillation. The rest of the history reviewed, the rest of the chart also reviewed. HOME MEDICATIONS: Reviewed, Motrin. Doses and rest of medications reviewed. ALLERGIES: None. FAMILY HISTORY: History of breast cancer. SOCIAL HISTORY: Previous history of smoking. REVIEW OF SYSTEMS: A 14-point review of systems is negative as mentioned earlier. PHYSICAL EXAMINATION: VITAL SIGNS: Pulse is 78, blood pressure 132/76, respirations 18. HEENT: Conjunctivae normal. NECK: No jugular venous distention. CARDIOVASCULAR: S1, S2, irregular. RESPIRATION: Breath sounds diminished at the bases. No rhonchi. No crackles. ABDOMEN: Soft, nontender. LEGS: Status post hip fracture. NERVOUS SYSTEM: Nonfocal. SKIN: n JOINTS: No active arthropathy. LABORATORY DATA: Not available. ASSESSMENT: 1. Status post left hip fracture. 2. Atrial fibrillation. 3. Hypertension. 4. Hyperlipidemia. 5. Multiple medical issues. RECOMMENDATIONS: This 77-year-old gentleman, who presented with multiple complex medical issues recommend to resume the home medications, telemetry. Cardiology evaluation. Otherwise, the patient is medically stable. The patient is cleared for surgery. See orders for further details. We will optimize medical treatment at this time. MMODL / IJN: [id number] / MTDD
--- NOTE | 2022-06-18 02:43 | CONS ---
CONSULTATION REASON FOR CONSULTATION: Advice regarding atrial ablation, other medical HISTORY OF PRESENT ILLNESS: This is a 77-year-old gentleman atrial fibrillation, hypertension, hyperlipidemia, DJD, being followed Dr. Rice. The patient had a fall and had left hip periprosthetic fracture. Apparently, orthopedic surgery is considered as medical management. There is no history of fever, rigors. No headache or loss of consciousness. PAST MEDICAL HISTORY: Reviewed and include atrial fibrillation. The rest of the history reviewed. Chart is reviewed. MEDICATIONS: The home medications include Motrin, dose and rest of the doses are reviewed. ALLERGIES: None. FAMILY HISTORY: History of breast cancer in the family. SOCIAL HISTORY: Previous history of smoking. Daily alcohol intake. REVIEW OF SYSTEMS: 14-point review of systems, negative as mentioned earlier. PHYSICAL EXAMINATION: VITAL SIGNS: Pulse 88, blood pressure 160/90, respiration 18. HEENT: Conjunctivae normal. NECK: No JVD. CARDIOVASCULAR: S1, S2 RESPIRATORY: no rhonchi, no crackles. ABDOMEN: Soft, nontender. EXTREMITIES: Legs, movement of the left hip is painful. NERVOUS SYSTEM: No focal deficits. LABORATORY DATA: Labs are reviewed. ASSESSMENT: 1. Status post fall and left hip periprosthetic fracture. 2. Atrial fibrillation. 3. Gait dysfunction. 4. Hypertension. 5. Hyperlipidemia. RECOMMENDATIONS: Recommend to continue home medications. Otherwise, patient also complains of severe pain. Pain management. Otherwise PT, OT evaluation. is also expressing concerns about going home because of the patient's home situation being old house and limited mobility. The patient might need rehab. We will talk with Social Work and Case Management. Prognosis is extremely guarded because of multiple Orthopedic Surgery. See orders for details. MMODL / IJN: [id number] / [facility]
[2022-06-18] MEDS: PANTOPRAZOLE 40 MG TABLET PO SCH (06:50)
[2022-06-18] MEDS: FUROSEMIDE 20 MG TAB PO SCH (08:49)
[2022-06-18] MEDS: MULTIVITAMINS, THERA 1 EACH TAB PO SCH (08:49)
[2022-06-18] MEDS: SILDENAFIL 20 MG TAB PO SCH (08:49)
[2022-06-18] MEDS: DILTIAZEM CD 300 MG CAP.ER.24H PO SCH (08:49)
[2022-06-18] MEDS: atenoloL 50 MG TAB PO SCH (08:49)
[2022-06-18] MEDS: SPIRONOLACTONE 25 MG TAB PO SCH (08:49)
[2022-06-18] MEDS: lisinopriL 20 MG TAB PO SCH (08:49)
[2022-06-18] MEDS: ATORVASTATIN 20 MG TAB PO SCH (08:49)
[2022-06-18 09:15] LABS: Basophils # (A) 0.06 X 10*3/uL (0.00-0.10); Basophils % (A) 0.6 %; Eosinophils # (A) 0.22 X 10*3/uL (0.04-0.35); Eosinophils % (A) 2.1 %; HCT 39.4 % (39.6-50.0); HGB 13.3 g/dL (13.0-17.0); Immature Grans, Automated 0.8 %; MCH 32.8 pg (27.0-32.0); MCHC 33.8 g/dL (32.0-37.0); MCV 97.3 fL (80.0-97.0); Mean Platelet Volume 10.5 fL (9.5-12.2); Monocytes % (A) 11.4 %; NRBC Per 100 WBC 0 /100 WBCS (0.0-0.0); Neutrophils # (A) 7.11 X 10*3/uL (1.80-7.70); Neutrophils % (A) 67.1 %; Platelet Count 237 X 10*3/uL (140-440); RBC 4.05 X 10*6/uL (4.40-5.60); RDW 13.8 % (11.5-14.5); WBC 10.57 X 10*3/uL (4.50-10.00)
[2022-06-18 09:22] LABS: African American GFR (CKD) 99.2 (60.0-200.0); Anion Gap 7.1 mmol/L (10.00-18.00); BUN/Creat Ratio 15.13 Ratio (12.00-20.00); Blood Urea Nitrogen 12.1 mg/dL (9.0-27.0); Calcium 9.3 mg/dL (8.7-10.3); Carbon Dioxide 26.9 mmol/L (20.0-27.5); Non-African American GFR(CKD) 85.6 (60.0-200.0); Potassium 4.6 mmol/L (3.5-5.5)
[2022-06-18] MEDS: HYDROcodone/APAP 5-325MG 1 EACH TAB PO PRN ×3 (09:46→21:32)
[2022-06-18] MEDS: SENNOSIDES 8.6 MG TAB PO SCH ×2 (12:46→21:32)
[2022-06-18] MEDS: HEPARIN SODIUM,PORCINE/PF 5,000 UNIT/0.5 ML SYRINGE SQ SCH ×2 (16:37→21:32)
[2022-06-19] MEDS: HYDROcodone/APAP 5-325MG 1 EACH TAB PO PRN ×2 (04:20→08:54)
[2022-06-19] MEDS: PANTOPRAZOLE 40 MG TABLET PO SCH (05:56)
--- NOTE | 2022-06-19 05:57 | PN ---
PROGRESS NOTE DATE OF SERVICE: 06/18/2022 SUBJECTIVE: This is a 77-year-old gentleman, who was admitted with fall and left hip periprosthetic fracture, is complaining of some pain. No chest pain. No palpitations. ECF rehab is also being considered. PHYSICAL EXAMINATION: VITAL SIGNS: Pulse 87, blood pressure 130/80, respirations 16. CHEST: Clear to auscultation. CARDIOVASCULAR: S1, S2. ABDOMEN: Soft. EXTREMITIES: Left hip movements are painful. LABS: Noted. ASSESSMENT: 1. Status post fall and left hip periprosthetic fracture. 2. Atrial fibrillation. 3. Gait dysfunction. 4. Hypertension. 5. Hyperlipidemia. 6. Multiple medical issues. 7. Gait dysfunction. RECOMMENDATIONS: Recommend to continue current management and symptomatic treatment. Otherwise, DVT prophylaxis. I would also recommend possible ECF rehab. Further recommendations to follow. IBETH / ELLIOTTN: [id number] /
[2022-06-19] MEDS: MULTIVITAMINS, THERA 1 EACH TAB PO SCH (08:54)
[2022-06-19] MEDS: DILTIAZEM CD 300 MG CAP.ER.24H PO SCH (08:54)
[2022-06-19] MEDS: atenoloL 50 MG TAB PO SCH (08:54)
[2022-06-19] MEDS: HEPARIN SODIUM,PORCINE/PF 5,000 UNIT/0.5 ML SYRINGE SQ SCH (08:54)
[2022-06-19] MEDS: FUROSEMIDE 20 MG TAB PO SCH (08:54)
[2022-06-19] MEDS: SILDENAFIL 20 MG TAB PO SCH (08:55)
[2022-06-19] MEDS: SPIRONOLACTONE 25 MG TAB PO SCH (08:55)
[2022-06-19] MEDS: ATORVASTATIN 20 MG TAB PO SCH (08:55)
[2022-06-19] MEDS: lisinopriL 20 MG TAB PO SCH (08:55)
[2022-06-19] MEDS: SENNOSIDES 8.6 MG TAB PO SCH (08:55)
[2022-06-19 14:20] VITALS: BP 98/60; PULSE 69; RESP 16; TEMP 98
--- NOTE | 2022-06-19 14:36 | P.DS ---
Providers Date of admission: 06/16/22 13:55 Expected date of discharge: 06/19/22 Attending physician: Samuel Hough Consults: 06/16/22 13:29 Consult Physician Urgent Consulting Provider: Chris Rice Reason/Comments: medical management Do you want consulting provider notified?: Yes Primary care physician: Chris Rice [facility] Course: This is an 77 year-old male who sustained a periprosthetic fracture of the left hip after a fall at home on 06/16/2022. The patient presented for evaluation in the emergency room. X-rays revealed a nondisplaced fracture of the greater trochanter left hip with bilateral total hip arthroplasties in good position and alignment. After discussion and consideration nonoperative treatment is recommended. Patient is admitted to [facility] on 06/16/2022. Patient has worked with physical therapy for immobilization during this admission. Labs and vital signs are stable on day of discharge. On day of discharge there is minimal soft tissue swelling to the hip and thigh. Patient has full foot and ankle motion without difficulty or pain. Calf is soft and nontender to palpation. Neurovascular status to the left lower extremity is intact. Patient is discharged to rehab in good condition. Please see med rec for accurate list of home medications. Patient Condition at Discharge: Fair Plan - Discharge Summary Discharge Rx Participant: No New Discharge Prescriptions: New Sennosides [Senokot] 2 tab PO DAILY PRN #60 tablet PRN Reason: Constipation HYDROcodone/APAP 5-325MG [[place] 5-325] 1 - 2 tab PO Q6HR PRN #30 tab PRN Reason: Pain Continue Diltiazem Cd [Cardizem CD] 300 mg PO DAILY Atenolol 100 mg PO DAILY Omeprazole 20 mg PO DAILY Atorvastatin [Lipitor] 20 mg PO DAILY HYDROcodone/APAP 7.5-325MG [[place] 7.5-325] 1 tab PO TID PRN PRN Reason: Pain Sildenafil Citrate 20 mg PO DAILY Multivit-Min/Folic/Vit K/Lycop [Men's Multivitamin Tablet] 1 tab PO DAILY lisinopriL [Zestril] 20 mg PO DAILY Ibuprofen [Motrin] 800 mg PO TID PRN PRN Reason: Pain Spironolactone [Aldactone] 12.5 mg PO DAILY Furosemide [Lasix] 20 mg PO DAILY No Action Apixaban [Eliquis] 5 mg PO BID #60 tab Discharge Medication List Atenolol 100 mg PO DAILY 01/20/14 [History] Diltiazem Cd [Cardizem CD] 300 mg PO DAILY 01/20/14 [History] Apixaban [Eliquis] 5 mg PO BID #60 tab 05/29/17 [Rx] Omeprazole 20 mg PO DAILY 01/02/19 [History] Atorvastatin [Lipitor] 20 mg PO DAILY 09/22/21 [History] Multivit-Min/Folic/Vit K/Lycop [Men's Multivitamin Tablet] 1 tab PO DAILY 09/22/21 [History] lisinopriL [Zestril] 20 mg PO DAILY 10/18/21 [History] HYDROcodone/APAP 7.5-325MG [[place] 7.5-325] 1 tab PO TID PRN 12/13/21 [History] Ibuprofen [Motrin] 800 mg PO TID PRN 12/13/21 [History] Furosemide [Lasix] 20 mg PO DAILY 06/16/22 [History] Sildenafil Citrate 20 mg PO DAILY 06/16/22 [History] Spironolactone [Aldactone] 12.5 mg PO DAILY 06/16/22 [History] HYDROcodone/APAP 5-325MG [[place] 5-325] 1 - 2 tab PO Q6HR PRN #30 tab 06/19/22 [Rx] Sennosides [Senokot] 2 tab PO DAILY PRN #60 tablet 06/19/22 [Rx] Follow up Appointment(s)/Referral(s): Chris Rice MD [Primary Care Provider] - 1-2 days Samuel Hough DO [Doctor of Osteopathic Medicine] - 07/02/22 2:15 pm Activity/Diet/Wound Care/Special Instructions: Nonweightbearing to the left lower extremity with a walker. Please follow-up with [facility] and call with any questions or concerns, . Discharge Disposition: TRANSFER TO SNF/ECF
== END 2022-06-19 15:48 | DRG 536 ==
LOC: EC 09:48 → 4SSUR 13:55
PROVIDERS: ADMIT Orthopaedic Surgery; ATTEND Orthopaedic Surgery
DX: S72.115A Nondisplaced fracture of greater trochanter of left femur, initial encounter for closed fracture (principal); M97.02XA Periprosthetic fracture around internal prosthetic left hip joint, initial encounter; I48.91 Unspecified atrial fibrillation; G89.29 Other chronic pain; I10 Essential (primary) hypertension; E78.5 Hyperlipidemia, unspecified; M19.90 Unspecified osteoarthritis, unspecified site; W01.0XXA Fall on same level from slipping, tripping and stumbling without subsequent striking against object, initial encounter; Z79.01 Long term (current) use of anticoagulants; Z79.899 Other long term (current) drug therapy; Z85.828 Personal history of other malignant neoplasm of skin; Z86.16 Personal history of COVID-19; Z87.891 Personal history of nicotine dependence; Z96.641 Presence of right artificial hip joint; Z96.653 Presence of artificial knee joint, bilateral; K29.70 Gastritis, unspecified, without bleeding; Z87.11 Personal history of peptic ulcer disease
CPT/HCPCS: 70450; 71045; 72125; 72192; 73502; 80048; 80053; 81001; 85025; 96374; 96376; 99285

== ENCOUNTER 2022-08-18 12:18 | Inpatient (IN) | payer MEDICARE ==
--- NOTE | 2022-08-18 12:31 | ED ---
General Adult HPI - General Chief complaint: Shortness of Breath Stated complaint: SOB Time Seen by Provider: 08/18/22 12:24 Source: patient Mode of arrival: ambulatory Limitations: no limitations - History of Present Illness Initial comments: Patient presents to the ED with his for evaluation. Patient states that he was shoveling snow this morning when he became acutely dyspneic. Patient states that his dyspnea has currently improved, but he states that he noticed that he has been dyspneic with even just a small amount of exertion since shoveling snow this morning. Patient also admits to having a runny nose and a mild cough for the past couple of days. Patient states that he is fully immunized against Covid, and he states that he has also had his influenza shot this season. Patient denies fever or chills, headache, focal numbness/weakness/neuro deficit, chest pain or pressure, neck/arm/jaw/back pain, hemoptysis, palpitations, dizzi ness, nausea/vomiting/diaphoresis, abdominal pain, diarrhea, bloody or melanotic stool, dysuria or urinary symptoms, decreased urine output, leg or calf pain, or any other symptoms or complaints. Patient is on Eliquis anticoagulation therapy. - Related Data Home Medications Medication Instructions Recorded Confirmed Atenolol 100 mg PO DAILY 01/20/14 08/18/22 Diltiazem Cd [Cardizem CD] 300 mg PO DAILY 01/20/14 08/18/22 Omeprazole 20 mg PO DAILY 01/02/19 08/18/22 Atorvastatin [Lipitor] 20 mg PO DAILY 09/22/21 08/18/22 Multivit-Min/Folic/Vit K/Lycop 1 tab PO DAILY 09/22/21 08/18/22 [Men's Multivitamin Tablet] lisinopriL [Zestril] 20 mg PO DAILY 10/18/21 08/18/22 Ibuprofen [Motrin] 800 mg PO TID PRN 12/13/21 08/18/22 Furosemide [Lasix] 20 mg PO DAILY 06/16/22 08/18/22 Spironolactone [Aldactone] 12.5 mg PO DAILY 06/16/22 08/18/22 Acetaminophen [Tylenol] 650 mg PO Q6H PRN 08/18/22 08/18/22 Aspirin EC [Ecotrin Low Dose] 81 mg PO DAILY 08/18/22 08/18/22 Aspirin/Sod Bicarb/Citric Acid 1 tab PO DAILY PRN 08/18/22 08/18/22 [[place] Original Tab Eff] Previous Rx's Medication Instructions Recorded Apixaban [Eliquis] 5 mg PO BID #60 tab 05/29/17 Sennosides [Senokot] 2 tab PO DAILY PRN #60 tablet 06/19/22 Allergies Allergy/AdvReac Type Severity Reaction Status Date / Time No Known Allergies Allergy Verified 08/18/22 14:21 Review of Systems ROS Statement: Those systems with pertinent positive or pertinent negative responses have been documented in the HPI. ROS Other: All systems not noted in ROS Statement are negative. Past Medical History Past Medical History: Atrial Fibrillation, Cancer, GERD/Reflux, Hyperlipidemia, Hypertension, Osteoarthritis (OA) Additional Past Medical History / Comment(s): Covid + 12/11/21, diverticular disease, bleeding duodenal ulcer, gastritis, hemorrhoids, chronic low back pain, vertigo at times, skin cancer with removal. Left hip replacement greater than 10 years ago. History of right hip replacement and bilateral total knee replacements History of Any Multi-Drug Resistant Organisms: None Reported Past Surgical History: Appendectomy, Joint Replacement, Orthopedic Surgery, Tonsillectomy Additional Past Surgical History / Comment(s): Total L/R knee arthroplasy, bilateral total hip arthroplasties, bilateral carpal tunnel releases, L foot bone removed/hardware since removed and had spacer placed, steroid back injections, colonoscopies, basal cell skin cancer removed. Past Anesthesia/Blood Transfusion Reactions: No Reported Reaction Additional Past Anesthesia/Blood Transfusion Reaction / Comment(s): . Past Psychological History: No Psychological Hx Reported Smoking Status: Former smoker Past Alcohol Use History: Daily Past Drug Use History: None Reported - Past Family History Brother(s) Family Medical History: Cancer Mother Family Medical History: Cancer Additional Family Medical History / Comment(s): Mother lived to be 90yrs old. breast cancer Father Family Medical History: No Reported History Additional Family Medical History / Comment(s): Father lived to be in his early 80's. General Exam Limitations: no limitations General appearance: alert, in no apparent distress Head exam: Present: atraumatic, normocephalic Eye exam: Present: normal appearance, EOMI ENT exam: Present: normal oropharynx, mucous membranes moist Neck exam: Present: other (Trachea is in midline) Respiratory exam: Present: other (Bibasilar rales). Absent: respiratory distress, wheezes, rhonchi, stridor Cardiovascular Exam: Present: regular rate, irregular rhythm, normal heart sounds, other (Normal radial pulses bilaterally) GI/Abdominal exam: Present: soft. Absent: distended, tenderness, guarding Extremities exam: Present: other (Negative Homans sign bilaterally; 2+ bilateral lower leg pitting edema). Absent: tenderness, calf tenderness Neurological exam: Present: alert, oriented X3. Absent: motor sensory deficit Psychiatric exam: Present: normal affect, normal mood Skin exam: Present: warm, dry, intact, normal color Course Vital Signs 08/18/22 08/18/22 12:21 13:09 Temperature 98.6 F Pulse Rate 63 59 L Respiratory 20 20 Rate Blood Pressure 175/89 135/95 O2 Sat by Pulse 93 L 91 L Oximetry - Reevaluation(s) Reevaluation #1: 08/18/22 14:22 Patient denies development of any new symptoms while in the ED. Patient sydnie nues to deny having any chest pain or pressure. Patient remains alert and breathing comfortably. Patient and are aware the patient's test results, and they both agree with hospital admission at this time. 08/18/22 14:36 Case, H&P, test results and ED management were discussed with Dr. Allen. He accepts hospital admission. He requests cardiology consultation. He has no further recommendations at this time. EKG Findings - EKG Comments: EKG Findings:: ED physician interpretation: Atrial fibrillation with slow ventricular response, normal QRS duration, mildly prolonged QTc interval of 470 ms, normal axis, no ST or T-wave abnormality Medical Decision Making - Medical Decision Making Given the patient's H&P and test results, I suspect that the patient's symptoms/findings are likely due to CHF. Patient is noted to have bibasilar rales and lower extremity edema on exam. Patient's chest x-ray shows findings of CHF. Patient's BNP is elevated. Patient's troponin is within normal limits. Patient is afebrile and without leukocytosis. Patient's viral studies are negative. Patient has been treated with IV Lasix in the ED. Patient's O2 sat has improved with supplemental nasal cannula oxygen administered in the ED. Case was discussed with Dr. Allen, and he has accepted hospital admission. - Lab Data Result diagrams: 08/18/22 13:02 08/18/22 13:02 Lab Results 08/18/22 08/18/22 08/18/22 Range/Units 13:02 13:02 13:02 WBC 8.3 (3.8-10.6) k/uL RBC 4.03 L (4.30-5.90) m/uL Hgb 13.3 (13.0-17.5) gm/dL Hct 39.0 (39.0-53.0) % MCV 96.6 (80.0-100.0) fL MCH 33.0 (25.0-35.0) pg MCHC 34.1 (31.0-37.0) g/dL RDW 14.0 (11.5-15.5) % Plt Count 198 (150-450) k/uL MPV 8.7 Neutrophils % 71 % Lymphocytes % 16 % Monocytes % 7 % Eosinophils % 3 % Basophils % 1 % Neutrophils # 5.9 (1.3-7.7) k/uL Lymphocytes # 1.4 (1.0-4.8) k/uL Monocytes # 0.6 (0-1.0) k/uL Eosinophils # 0.3 (0-0.7) k/uL Basophils # 0.1 (0-0.2) k/uL PT 12.1 H (9.0-12.0) sec INR 1.2 H (<1.2) APTT 28.6 (22.0-30.0) sec Sodium 139 (137-145) mmol/L Potassium 4.4 (3.5-5.1) mmol/L Chloride 108 H (98-107) mmol/L Carbon Dioxide 24 (22-30) mmol/L Anion Gap 7 mmol/L BUN 14 (9-20) mg/dL Creatinine 0.67 (0.66-1.25) mg/dL Est GFR (CKD-EPI)AfAm >90 (>60 ml/min/1.73 sqM) Est GFR (CKD-EPI)NonAf >90 (>60 ml/min/1.73 sqM) Glucose 108 H (74-99) mg/dL Calcium 9.3 (8.4-10.2) mg/dL Total Bilirubin 1.0 (0.2-1.3) mg/dL AST 26 (17-59) U/L ALT 16 (4-49) U/L Alkaline Phosphatase 109 (38-126) U/L Troponin I (0.000-0.034) ng/mL NT-Pro-B Natriuret Pep pg/mL Total Protein 6.9 (6.3-8.2) g/dL Albumin 4.0 (3.5-5.0) g/dL Influenza Type A (PCR) (Not Detectd) Influenza Type B (PCR) (Not Detectd) RSV (PCR) (Not Detectd) SARS-CoV-2 (PCR) (Not Detectd) 08/18/22 08/18/22 08/18/22 Range/Units 13:02 13:02 13:09 WBC (3.8-10.6) k/uL RBC (4.30-5.90) m/uL Hgb (13.0-17.5) gm/dL Hct (39.0-53.0) % MCV (80.0-100.0) fL MCH (25.0-35.0) pg MCHC (31.0-37.0) g/dL RDW (11.5-15.5) % Plt Count (150-450) k/uL MPV Neutrophils % % Lymphocytes % % Monocytes % % Eosinophils % % Basophils % % Neutrophils # (1.3-7.7) k/uL Lymphocytes # (1.0-4.8) k/uL Monocytes # (0-1.0) k/uL Eosinophils # (0-0.7) k/uL Basophils # (0-0.2) k/uL PT (9.0-12.0) sec INR (<1.2) APTT (22.0-30.0) sec Sodium (137-145) mmol/L Potassium (3.5-5.1) mmol/L Chloride (98-107) mmol/L Carbon Dioxide (22-30) mmol/L Anion Gap mmol/L BUN (9-20) mg/dL Creatinine (0.66-1.25) mg/dL Est GFR (CKD-EPI)AfAm (>60 ml/min/1.73 sqM) Est GFR (CKD-EPI)NonAf (>60 ml/min/1.73 sqM) Glucose (74-99) mg/dL Calcium (8.4-10.2) mg/dL Total Bilirubin (0.2-1.3) mg/dL AST (17-59) U/L ALT (4-49) U/L Alkaline Phosphatase (38-126) U/L Troponin I <0.012 (0.000-0.034) ng/mL NT-Pro-B Natriuret Pep 1930 pg/mL Total Protein (6.3-8.2) g/dL Albumin (3.5-5.0) g/dL Influenza Type A (PCR) Not Detected (Not Detectd) Influenza Type B (PCR) Not Detected (Not Detectd) RSV (PCR) Not Detected (Not Detectd) SARS-CoV-2 (PCR) Not Detected (Not Detectd) - Radiology Data Chest x-ray: Mild cardiomegaly with interval development of diffuse interstitial opacities. Possible trace effusions on the lateral view. Correlate for CHF with interstitial pulmonary edema. Disposition Clinical Impression: Atrial fibrillation, Dyspnea, CHF (congestive heart failure), Hypoxia Disposition: ADMITTED IP TO THIS HOSP Condition: Stable Is patient prescribed a controlled substance at d/c from ED?: No Referrals: Chris Rice MD [Primary Care Provider] - 1-2 days Time of Disposition: 14:37
--- NOTE | 2022-08-18 12:51 | XR ---
EXAMINATION TYPE: XR chest 2V DATE OF EXAM: 08/18/2022 COMPARISON: 06/16/2022 HISTORY: 77 year-old male shortness of breath, difficulty breathing TECHNIQUE: PA and lateral views FINDINGS: Heart mildly enlarged. Diffuse interstitial opacities have developed. No gilson consolidation. There m ay be trace effusion on the lateral view. IMPRESSION: Mild cardiomegaly with interval development of diffuse interstitial opacities. Possible trace effusio ns on the lateral view. Correlate for CHF with interstitial pulmonary edema.
[2022-08-18 13:21] LABS: Basophils # (A) 0.1 k/uL (0-0.2); Basophils % (A) 1 %; Eosinophils # (A) 0.3 k/uL (0-0.7); Eosinophils % (A) 3 %; HGB 13.3 gm/dL (13.0-17.5); Lymphocytes # (A) 1.4 k/uL (1.0-4.8); Lymphocytes % (A) 16 %; MCHC 34.1 g/dL (31.0-37.0); MCV 96.6 fL (80.0-100.0); Mean Platelet Volume 8.7; Monocytes # (A) 0.6 k/uL (0-1.0); Monocytes % (A) 7 %; Neutrophils # (A) 5.9 k/uL (1.3-7.7); Neutrophils % (A) 71 %; Platelet Count 198 k/uL (150-450); RBC 4.03 m/uL (4.30-5.90); WBC 8.3 k/uL (3.8-10.6)
[2022-08-18 13:29] LABS: INR 1.2 (<1.2); Partial Thromboplastin Time 28.6 sec (22.0-30.0); Prothrombin Time 12.1 sec (9.0-12.0)
[2022-08-18 13:30] LABS: ALT 16 U/L (4-49); AST 26 U/L (17-59); African American GFR (CKD) >90 (>60 ml/min/1.73 sqM); Alkaline Phosphatase 109 U/L (38-126); Anion Gap 7 mmol/L; Blood Urea Nitrogen 14 mg/dL (9-20); Calcium 9.3 mg/dL (8.4-10.2); Carbon Dioxide 24 mmol/L (22-30); Chloride 108 mmol/L (98-107); Glucose 108 mg/dL (74-99); Non-African American GFR(CKD) >90 (>60 ml/min/1.73 sqM); Potassium 4.4 mmol/L (3.5-5.1); Sodium 139 mmol/L (137-145); Total Protein 6.9 g/dL (6.3-8.2)
[2022-08-18] MEDS ORDERED: FUROSEMIDE 10 MG/ML 4 ML VIAL IV STA (14:22)
[2022-08-18] MEDS: APIXABAN 5 MG TAB PO SCH (21:41)
[2022-08-18] MEDS: FUROSEMIDE 10 MG/ML 2 ML VIAL IV SCH (21:41)
[2022-08-18] MEDS: MELATONIN 3 MG TABLET PO SCH (22:57)
[2022-08-18] MEDS: lisinopriL 20 MG TAB PO SCH (22:57)
--- NOTE | 2022-08-19 00:44 | P.HPIM ---
History of Present Illness H&P Date: 08/18/22 Chief Complaint: Shortness of breath Patient is a 77-year-old male atrial fibrillation on anticoagulation with the liquids, hypertension, hyperlipidemia, GERD, osteoarthritis and history of bleeding duodenal ulcer and prior history of smoking, drinks whiskey daily presents to ER due to complaints of shortness of breath. Patient states that he was shoveling snow this morning and suddenly became short of breath and went inside. He became dyspneic urine with small amount of exertion. Patient is also complaining of congested cough and slightly increased leg swelling for the past few days. Denied any sputum production. No fever no chills. No nausea vomiting abdominal pain or diarrhea. No headache or dizziness or lightheadedness. Patient presents to ER with his . Chest x-ray showed mild cardiomegaly with interval development of diffuse interstitial opacities. Possible trace effusions on the lateral view. Correlate for CHF with interstitial pulmonary edema. EKG showed atrial fibrillation with slow ventricular response. Laboratory data WBC 8.3 hemoglobin 13.3 and platelets 198 INR 1.2 sodium 139 potassium 4.4 chloride 108 BUN 14 and creatinine 0.67 ProBNP 1390. Troponin 3 negative Influenza AB, RSV and Covid PCR not detected. Review of Systems Constitutional: Patient denies any fever or chills . No generalized weakness or weight loss. Abdomen: Patient denied nausea vomiting and diarrhea and abdominal pain. Cardiovascular: Patient denies any chest pain patient does have short of breath and exertional dyspnea. no palpitations. Leg swelling. Respiratory: patient does have cough and congestion without sputum production. Positive for shortness of breath Neurologic: Patient denied any numbness or tingling headache. Musculoskeletal: Patient denies any complaints of joint swelling or deformity. Skin: Negative Psychiatric: Negative Endocrine: No heat or cold intolerance. No recent weight gain. Genitourinary: No dysuria or hematuria. All other 14 point ROS negative except the above Past Medical History Past Medical History: Atrial Fibrillation, Cancer, GERD/Reflux, Hyperlipidemia, Hypertension, Osteoarthritis (OA) Additional Past Medical History / Comment(s): Covid + 12/11/21, diverticular disease, bleeding duodenal ulcer, gastritis, hemorrhoids, chronic low back pain, vertigo at times, skin cancer with removal. Left hip replacement greater than 10 years ago. History of right hip replacement and bilateral total knee replacements History of Any Multi-Drug Resistant Organisms: None Reported Past Surgical History: Appendectomy, Joint Replacement, Orthopedic Surgery, Tonsillectomy Additional Past Surgical History / Comment(s): Total L/R knee arthroplasy, bilateral total hip arthroplasties, bilateral carpal tunnel releases, L foot bone removed/hardware since removed and had spacer placed, steroid back injections, colonoscopies, basal cell skin cancer removed. Past Anesthesia/Blood Transfusion Reactions: No Reported Reaction Additional Past Anesthesia/Blood Transfusion Reaction / Comment(s): . Past Psychological History: No Psychological Hx Reported Additional Psychological History / Comment(s): Pt resides with his spouse. He uses a cane. He is independent. Smoking Status: Former smoker Past Alcohol Use History: Daily Additional Past Alcohol Use History / Comment(s): Pt started smoking in 1968 and quit in 1988. He drinks 2-3 drinks with whiskey per day. Past Drug Use History: None Reported - Past Family History Brother(s) Family Medical History: Cancer Mother Family Medical History: Cancer Additional Family Medical History / Comment(s): Mother lived to be 90yrs old. breast cancer Father Family Medical History: No Reported History Additional Family Medical History / Comment(s): Father lived to be in his early 80's. Medications and Allergies Home Medications Medication Instructions Recorded Confirmed Type Atenolol 100 mg PO DAILY 01/20/14 08/18/22 History Diltiazem Cd [Cardizem CD] 300 mg PO DAILY 01/20/14 08/18/22 History Apixaban [Eliquis] 5 mg PO BID #60 tab 05/29/17 08/18/22 Rx Omeprazole 20 mg PO DAILY 01/02/19 08/18/22 History Atorvastatin [Lipitor] 20 mg PO DAILY 09/22/21 08/18/22 History Multivit-Min/Folic/Vit K/Lycop 1 tab PO DAILY 09/22/21 08/18/22 History [Men's Multivitamin Tablet] lisinopriL [Zestril] 20 mg PO DAILY 10/18/21 08/18/22 History Ibuprofen [Motrin] 800 mg PO TID PRN 12/13/21 08/18/22 History Furosemide [Lasix] 20 mg PO DAILY 06/16/22 08/18/22 History Spironolactone [Aldactone] 12.5 mg PO DAILY 06/16/22 08/18/22 History Sennosides [Senokot] 2 tab PO DAILY PRN #60 tablet 06/19/22 08/18/22 Rx Acetaminophen [Tylenol] 650 mg PO Q6H PRN 08/18/22 08/18/22 History Aspirin EC [Ecotrin Low Dose] 81 mg PO DAILY 08/18/22 08/18/22 History Aspirin/Sod Bicarb/Citric Acid 1 tab PO DAILY PRN 08/18/22 08/18/22 History [[place] Original Tab Eff] Allergies Allergy/AdvReac Type Severity Reaction Status Date / Time No Known Allergies Allergy Verified 08/18/22 14:21 Physical Exam Vitals: Vital Signs Temp Pulse Pulse Resp BP BP Pulse Ox 08/18/22 15:21 98.3 F 71 17 177/96 92 L 08/18/22 15:05 69 18 96 08/18/22 14:57 71 20 155/60 95 08/18/22 13:09 59 L 20 135/95 91 L 08/18/22 12:21 98.6 F 63 20 175/89 93 L Intake and Output 08/18/22 08/18/22 08/18/22 06:59 14:59 22:59 Intake Total 118 Balance 118 Intake: Oral 118 Other: Weight 104.326 kg 104.326 kg PHYSICAL EXAMINATION: Patient is lying in the bed comfortably, no acute distress, awake alert and oriented.. HEENT: Normocephalic. Neck is supple. Pupils reactive. Nostrils clear. Oral cavity is moist. Neck reveals no JVD, carotid bruits, or thyromegaly. CHEST EXAMINATION: Trachea is central. Symmetrical expansion. Bibasilar crackles. No wheezing or rhonchi.. CARDIAC: Normal S1, S2 with no gallops. No murmurs . Irregularly irregular rhythm. ABDOMEN: Soft. Bowel sounds normal. No organomegaly. No abdominal bruits. Extremities: Trace bilateral pedal edema. No clubbing or cyanosis Neurologically awake, alert, oriented x3 with well-coordinated movements. No focal deficits noted Skin: No rash or skin lesions. Psychiatric: Coperative. Nonsuicidal Musculoskeletal: No joint swelling or deformity. Normal range of motion. Results CBC & Chem 7: 08/19/22 06:20 08/19/22 06:20 Labs: Abnormal Lab Results - Last 24 Hours (Table) 08/18/22 08/18/22 08/18/22 Range/Units 13:02 13:02 13:02 RBC 4.03 L (4.30-5.90) m/uL PT 12.1 H (9.0-12.0) sec INR 1.2 H (<1.2) Chloride 108 H (98-107) mmol/L Glucose 108 H (74-99) mg/dL Thrombosis Risk Factor Assmnt - DVT/VTE Prophylaxis DVT/VTE Prophylaxis: Pharmacologic Prophylaxis ordered - Choose All That Apply Each Risk Factor Represents 3 Points: Age 75 years or older Thrombosis Risk Factor Assessment Total Risk Factor Score: 3 Thrombosis Risk Factor Assessment Level: Moderate Risk Assessment and Plan Assessment: Shortness of breath, exertional dyspnea secondary to acute CHF likely diastolic dysfunction Paroxysmal atrial fibrillation with controlled ventricular response. Uncontrolled hypertension Hypertension Hyperlipidemia GERD History of bleeding duodenal ulcer Chronic low back pain Prior history of smoking Daily alcohol use DVT prophylaxis patient is already on full anticoagulation Plan: Patient will be continued on telemetry monitoring. Continue with serial EKGs and troponins. Started on Lasix 20 mg every 12 and monitor renal function closely. Started back on home blood pressure medications including Cardizem CD, Aldactone, lisinopril and anticoagulation. Cardiology was consulted. Continue to follow closely. Time with Patient: Greater than 30
[2022-08-19 07:46] LABS: Basophils # (A) 0.1 k/uL (0-0.2); Basophils % (A) 1 %; Eosinophils # (A) 0.3 k/uL (0-0.7); Eosinophils % (A) 4 %; HCT 38.2 % (39.0-53.0); HGB 12.9 gm/dL (13.0-17.5); Lymphocytes # (A) 1.5 k/uL (1.0-4.8); Lymphocytes % (A) 22 %; MCH 32.2 pg (25.0-35.0); MCHC 33.8 g/dL (31.0-37.0); MCV 95.4 fL (80.0-100.0); Mean Platelet Volume 9.4; Monocytes # (A) 0.5 k/uL (0-1.0); Monocytes % (A) 7 %; Neutrophils # (A) 4.4 k/uL (1.3-7.7); Neutrophils % (A) 63 %; Platelet Count 196 k/uL (150-450); RBC 4.01 m/uL (4.30-5.90); RDW 14.3 % (11.5-15.5); WBC 6.9 k/uL (3.8-10.6)
[2022-08-19 08:08] LABS: ALT 14 U/L (4-49); AST 20 U/L (17-59); African American GFR (CKD) >90 (>60 ml/min/1.73 sqM); Albumin 3.8 g/dL (3.5-5.0); Alkaline Phosphatase 112 U/L (38-126); Anion Gap 9 mmol/L; Blood Urea Nitrogen 11 mg/dL (9-20); Calcium 9.2 mg/dL (8.4-10.2); Carbon Dioxide 27 mmol/L (22-30); Chloride 106 mmol/L (98-107); Glucose 97 mg/dL (74-99); Non-African American GFR(CKD) >90 (>60 ml/min/1.73 sqM); Potassium 3.6 mmol/L (3.5-5.1); Sodium 142 mmol/L (137-145); Total Bilirubin 1.1 mg/dL (0.2-1.3); Total Protein 6.6 g/dL (6.3-8.2)
[2022-08-19] MEDS: DILTIAZEM CD 300 MG CAP.ER.24H PO SCH (08:41)
[2022-08-19] MEDS: ATORVASTATIN 20 MG TAB PO SCH (08:41)
[2022-08-19] MEDS: APIXABAN 5 MG TAB PO SCH ×2 (08:41→19:41)
[2022-08-19] MEDS: ASPIRIN 81 MG PO SCH (08:41)
[2022-08-19] MEDS: lisinopriL 20 MG TAB PO SCH (08:41)
[2022-08-19] MEDS: SPIRONOLACTONE 25 MG TAB PO SCH (08:41)
[2022-08-19] MEDS: FUROSEMIDE 10 MG/ML 2 ML VIAL IV SCH ×2 (08:41→19:41)
[2022-08-19] MEDS: PANTOPRAZOLE 40 MG TABLET PO SCH (08:41)
[2022-08-19] MEDS ORDERED: SENNOSIDES 8.6 MG TAB PO PRN (09:00)
[2022-08-19] MEDS ORDERED: lisinopriL 20 MG TAB PO SCH (09:00)
--- NOTE | 2022-08-19 11:23 | P.CRDCN ---
History of Present Illness Consult date: 08/19/22 Consult reason: congestive heart failure History of present illness: HISTORY OF PRESENT ILLNESS: This is a 77-year-old male with a past medical history significant for permanent atrial fibrillation, hypertension, and GERD. Patient follows in the office with Dr. Ashford. We have been asked to see the patient in consultation for CHF and A. fib. The patient presented to the hospital with a chief complaint of shortness of breath while he was outside shoveling snow. He states he was significantly out of breath at the time and went into the house and sat down, talked to his and decided come in the hospital. He also complains of lower extremity edema. * EKG reveals A. fib with heart rate 58 * Chest xray developing diffuse interstitial opacities. Possible trace effusion. Correlate CHF with interstitial pulmonary edema * Laboratory data: WBC 6.9, hemoglobin 12.9, potassium 3.6, BUN 11 and creatinine 0.68. Troponin negative 3. ProBNP 1930. Liver function tests within normal limits. * Current home cardiac medications include Eliquis 5 mg twice a day, atenolol 100 mg daily, atorvastatin 20 mg daily Cardizem CD 300 mg daily, Lasix 20 mg daily, lisinopril 20 mg daily, Aldactone 12.5 mg daily * Echocardiogram completed 12/13/2021 revealing ejection fraction 55-60% , mild left atrial enlargement, mild right ventricular dilation with mild pulmonary hypertension REVIEW OF SYSTEMS: At the time of evaluation Constitutional: No fever, no chills, no night sweats. No weight change. No we akness, fatigue or lethargy. No daytime sleepiness. EENT: No headache. No loss of vision. no dizziness. Lungs: Mild shortness of breath with improvement, cough, no sputum production. No wheezing. Cardiovascular: No chest pain, mild lower extremity edema. No palpitations. No paroxysmal nocturnal dyspnea. No orthopnea. No lightheadedness or dizziness. No syncopal episodes. Abdominal: No abdominal pain. No nausea, vomiting. No diarrhea. No constipation. No bloody or tarry stools.. No loss of appetite. Genitourinary: No dysuria, increased frequency, urgency. No urinary retention. Musculoskeletal: No myalgias. No muscle weakness, no gait dysfunction. Integumentary: No rash or pruritus. No unusual bruising. Neurologic: No aphasia. No facial droop. No change in mentation. No head injury. No headache. Psychiatric: No depression. No anxiety. PHYSICAL EXAM: Gen: This is a 77-year-old male. He is resting in bed and appears to be comfortable HEENT: Head is atraumatic, normocephalic. Pupils equal, round. Sclerae is anicteric. NECK: Supple. No JVD. No lymphadenopathy. No thyromegaly. LUNGS: Diminished in the bases. No intercostal retractions. HEART: Regular rate and rhythm. No murmur. ABDOMEN: Soft. Bowel sounds are present. No masses. No tenderness. EXTREMITIES: Trace pedal edema. No calf tenderness. NEUROLOGICAL: Patient is awake, alert and oriented x3. Cranial nerves 2 through 12 are grossly intact. ASSESSMENT: Acute diastolic heart failure Persistent permanent atrial fibrillation Hypertension GERD Former nicotine dependence PLAN: Continue patient on Lasix 20 mg IV every 12 hours Continue patient's other cardiac medications Obtain 2-D echocardiogram Monitor I&O, electrolytes and renal function Further recommendations pending patient course Nurse practitioner note has been reviewed by physician. Signing provider agrees with the documented findings, assessment, and plan of care. Past Medical History Past Medical History: Atrial Fibrillation, Cancer, GERD/Reflux, Hyperlipidemia, Hypertension, Osteoarthritis (OA) Additional Past Medical History / Comment(s): Covid + 12/11/21, diverticular disease, bleeding duodenal ulcer, gastritis, hemorrhoids, chronic low back pain, vertigo at times, skin cancer with removal. Left hip replacement greater than 10 years ago. History of right hip replacement and bilateral total knee replacements History of Any Multi-Drug Resistant Organisms: None Reported Past Surgical History: Appendectomy, Joint Replacement, Orthopedic Surgery, Tonsillectomy Additional Past Surgical History / Comment(s): Total L/R knee arthroplasy, bilateral total hip arthroplasties, bilateral carpal tunnel releases, L foot bone removed/hardware since removed and had spacer placed, steroid back injections, colonoscopies, basal cell skin cancer removed. Past Anesthesia/Blood Transfusion Reactions: No Reported Reaction Additional Past Anesthesia/Blood Transfusion Reaction / Comment(s): . Past Psychological History: No Psychological Hx Reported Additional Psychological History / Comment(s): Pt resides with his spouse. He uses a cane. He is independent. Smoking Status: Former smoker Past Alcohol Use History: Daily Additional Past Alcohol Use History / Comment(s): Pt started smoking in 1968 and quit in 1988. He drinks 2-3 drinks with whiskey per day. Past Drug Use History: None Reported - Past Family History Brother(s) Family Medical History: Cancer Mother Family Medical History: Cancer Additional Family Medical History / Comment(s): Mother lived to be 90yrs old. breast cancer Father Family Medical History: No Reported History Additional Family Medical History / Comment(s): Father lived to be in his early 80's. Medications and Allergies Home Medications Medication Instructions Recorded Confirmed Type Atenolol 100 mg PO DAILY 01/20/14 08/18/22 History Diltiazem Cd [Cardizem CD] 300 mg PO DAILY 01/20/14 08/18/22 History Apixaban [Eliquis] 5 mg PO BID #60 tab 05/29/17 08/18/22 Rx Omeprazole 20 mg PO DAILY 01/02/19 08/18/22 History Atorvastatin [Lipitor] 20 mg PO DAILY 09/22/21 08/18/22 History Multivit-Min/Folic/Vit K/Lycop 1 tab PO DAILY 09/22/21 08/18/22 History [Men's Multivitamin Tablet] lisinopriL [Zestril] 20 mg PO DAILY 10/18/21 08/18/22 History Ibuprofen [Motrin] 800 mg PO TID PRN 12/13/21 08/18/22 History Furosemide [Lasix] 20 mg PO DAILY 06/16/22 08/18/22 History Spironolactone [Aldactone] 12.5 mg PO DAILY 06/16/22 08/18/22 History Sennosides [Senokot] 2 tab PO DAILY PRN #60 tablet 06/19/22 08/18/22 Rx Acetaminophen [Tylenol] 650 mg PO Q6H PRN 08/18/22 08/18/22 History Aspirin EC [Ecotrin Low Dose] 81 mg PO DAILY 08/18/22 08/18/22 History Aspirin/Sod Bicarb/Citric Acid 1 tab PO DAILY PRN 08/18/22 08/18/22 History [[place] Original Tab Eff] Allergies Allergy/AdvReac Type Severity Reaction Status Date / Time No Known Allergies Allergy Verified 08/18/22 14:21 Physical Exam Vitals: Vital Signs Temp Pulse Pulse Resp BP BP Pulse Ox 08/19/22 04:55 96.3 F L 96 17 154/87 92 L 08/18/22 23:41 96.3 F L 93 16 180/93 93 L 08/18/22 19:40 97.3 F L 91 16 173/98 92 L 08/18/22 15:21 98.3 F 71 17 177/96 92 L 08/18/22 15:05 69 18 96 08/18/22 14:57 71 20 155/60 95 08/18/22 13:09 59 L 20 135/95 91 L 08/18/22 12:21 98.6 F 63 20 175/89 93 L Intake and Output 08/18/22 08/19/22 08/19/22 22:59 06:59 14:59 Intake Total 658 Output Total 370 410 Balance 288 -410 Intake: Oral 658 Output: Urine 370 410 Other: Voiding Method Toilet Toilet Weight 104.326 kg Results 08/19/22 06:20 08/19/22 06:20 Cardiac Enzymes 08/18/22 08/18/22 08/18/22 Range/Units 13:02 13:02 16:11 AST 26 (17-59) U/L Troponin I <0.012 <0.012 (0.000-0.034) ng/mL 08/18/22 08/19/22 Range/Units 18:36 06:20 AST 20 (17-59) U/L Troponin I <0.012 (0.000-0.034) ng/mL Coagulation 08/18/22 Range/Units 13:02 PT 12.1 H (9.0-12.0) sec APTT 28.6 (22.0-30.0) sec CBC 08/18/22 08/19/22 Range/Units 13:02 06:20 WBC 8.3 6.9 (3.8-10.6) k/uL RBC 4.03 L 4.01 L (4.30-5.90) m/uL Hgb 13.3 12.9 L (13.0-17.5) gm/dL Hct 39.0 38.2 L (39.0-53.0) % Plt Count 198 196 (150-450) k/uL Comprehensive Metabolic Panel 08/18/22 08/19/22 Range/Units 13:02 06:20 Sodium 139 142 (137-145) mmol/L Potassium 4.4 3.6 (3.5-5.1) mmol/L Chloride 108 H 106 (98-107) mmol/L Carbon Dioxide 24 27 (22-30) mmol/L BUN 14 11 (9-20) mg/dL Creatinine 0.67 0.68 (0.66-1.25) mg/dL Glucose 108 H 97 (74-99) mg/dL Calcium 9.3 9.2 (8.4-10.2) mg/dL AST 26 20 (17-59) U/L ALT 16 14 (4-49) U/L Alkaline Phosphatase 109 112 (38-126) U/L Total Protein 6.9 6.6 (6.3-8.2) g/dL Albumin 4.0 3.8 (3.5-5.0) g/dL Current Medications Generic Name Dose Route Start Last Admin Trade Name Freq PRN Reason Stop Dose Admin Apixaban 5 mg 08/18/22 21:00 08/18/22 21:41 Apixaban 5 Mg Tab PO 5 mg BID CELESTINA Administration Protocol Aspirin 81 mg 08/19/22 09:00 Aspirin 81 Mg PO DAILY CELESTINA Atorvastatin Calcium 20 mg 08/19/22 09:00 Atorvastatin 20 Mg Tab PO DAILY CELESTINA Diltiazem HCl 300 mg 08/19/22 09:00 Diltiazem Cd 300 Mg Cap.Er.24h PO DAILY CELESTINA Furosemide 20 mg 08/18/22 21:00 08/18/22 21:41 Furosemide 10 Mg/Ml 2 Ml Vial IV 20 mg Q12HR CELESTINA Administration Lisinopril 20 mg 08/18/22 21:41 08/18/22 22:57 Lisinopril 20 Mg Tab PO 20 mg DAILY CELESTINA Administration Melatonin 3 mg 08/18/22 22:15 08/18/22 22:57 Melatonin 3 Mg Tablet PO 3 mg HS CELESTINA Administration Pantoprazole Sodium 40 mg 08/19/22 09:00 Pantoprazole 40 Mg Tablet PO DAILY CELESTINA Senna 8.6 mg 08/19/22 09:00 Sennosides 8.6 Mg Tab PO DAILY PRN Constipation Spironolactone 12.5 mg 08/19/22 09:00 Spironolactone 25 Mg Tab PO DAILY CELESTINA Intake and Output 08/18/22 08/19/22 08/19/22 22:59 06:59 14:59 Intake Total 658 Output Total 370 410 Balance 288 -410 Intake: Oral 658 Output: Urine 370 410 Other: Voiding Method Toilet Toilet Weight 104.326 kg 08/19/22 06:20 08/19/22 06:20
[2022-08-19] MEDS: MELATONIN 3 MG TABLET PO SCH (19:41)
[2022-08-20] MEDS: ATORVASTATIN 20 MG TAB PO SCH (08:15)
[2022-08-20] MEDS: FUROSEMIDE 10 MG/ML 2 ML VIAL IV SCH (08:15)
[2022-08-20] MEDS: APIXABAN 5 MG TAB PO SCH (08:15)
[2022-08-20] MEDS: DILTIAZEM CD 300 MG CAP.ER.24H PO SCH (08:15)
[2022-08-20] MEDS: ASPIRIN 81 MG PO SCH (08:15)
[2022-08-20] MEDS: PANTOPRAZOLE 40 MG TABLET PO SCH (08:16)
[2022-08-20] MEDS: SPIRONOLACTONE 25 MG TAB PO SCH (08:16)
[2022-08-20] MEDS: lisinopriL 20 MG TAB PO SCH (08:16)
[2022-08-20 09:24] VITALS: RESP 18
--- NOTE | 2022-08-20 12:22 | P.PN ---
Subjective Progress Note Date: 08/20/22 HISTORY OF PRESENT ILLNESS: This is a 77-year-old male with a past medical history significant for permanent atrial fibrillation, hypertension, and GERD. Patient follows in the office with Dr. Ashford. We have been asked to see the patient in consultation for CHF and A. fib. The patient presented to the hospital with a chief complaint of shortness of breath while he was outside shoveling snow. He states he was significantly out of breath at the time and went into the house and sat down, talked to his and decided come in the hospital. He also complains of lower extremity edema. * EKG reveals A. fib with heart rate 58 * Chest xray developing diffuse interstitial opacities. Possible trace effusion. Correlate CHF with interstitial pulmonary edema * Laboratory data: WBC 6.9, hemoglobin 12.9, potassium 3.6, BUN 11 and creatinine 0.68. Troponin negative 3. ProBNP 1930. Liver function tests within normal limits. * Current home cardiac medications include Eliquis 5 mg twice a day, atenolol 100 mg daily, atorvastatin 20 mg daily Cardizem CD 300 mg daily, Lasix 20 mg daily, lisinopril 20 mg daily, Aldactone 12.5 mg daily * Echocardiogram completed 12/13/2021 revealing ejection fraction 55-60% , mild left atrial enlargement, mild right ventricular dilation with mild pulmonary hypertension 08/20 The patient denies new concerns. He states his breathing is stable and lower extremity edema is improved. He is on Lasix 20 IV every 12 hours. Patient states he has been diuresing well. 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 Echocardiogram is pending. PHYSICAL EXAM: Gen: This is a 77-year-old male. He is resting in bed and appears to be comfortable HEENT: Head is atraumatic, normocephalic. Pupils equal, round. Sclerae is anicteric. NECK: Supple. No JVD. No lymphadenopathy. No thyromegaly. LUNGS: Diminished in the bases. No intercostal retractions. HEART: Regular rate and rhythm. No murmur. ABDOMEN: Soft. Bowel sounds are present. No masses. No tenderness. EXTREMITIES: Trace pedal edema. No calf tenderness. NEUROLOGICAL: Patient is awake, alert and oriented x3. Cranial nerves 2 through 12 are grossly intact. ASSESSMENT: Acute diastolic heart failure Persistent permanent atrial fibrillation Hypertension GERD Former nicotine dependence PLAN: Transition IV Lasix to oral Continue patient's other cardiac medications Obtain 2-D echocardiogram Monitor I&O, electrolytes and renal function Further recommendations pending patient course Nurse practitioner note has been reviewed by physician. Signing provider agrees with the documented findings, assessment, and plan of care. Objective - Vital Signs Vital signs: Vital Signs Temp 99.0 F 08/20/22 08:00 Pulse 74 08/20/22 08:00 Resp 18 08/20/22 08:00 BP 145/87 08/20/22 08:00 Pulse Ox 95 08/20/22 08:00 FiO2 Intake & Output 08/19/22 08/20/22 08/20/22 18:59 06:59 18:59 Intake Total 350 240 420 Output Total 450 400 Balance 350 -210 20 Weight 99 kg Intake: Oral 350 240 420 Output: Urine 450 400 Other: Voiding Method Toilet Toilet Urinal # Voids 2 1 - Labs CBC & Chem 7: 08/19/22 06:20 08/19/22 06:20
--- NOTE | 2022-08-20 14:17 | CA ---
Transthoracic Echo Report Name: Jeremy Francois Age: 77 Gender: M : 1945 Exam Date: 08/20/2022 13:21 Exam Location: [facility] Ht (in): 62 Wt (lb): 218 Ordering Physician: Makayla Olmedo Attending/Referring Phys: [id number], Shara Mottler Operator Jyoti Somers RDCS Procedure CPT: Indications: LVF Cardiac Hx: Technical Quality: Contrast 1: Total Dose (mL): Contrast 2: Total Dose (mL): MEASUREMENTS (Male / Female) Normal Values 2D ECHO LV Diastolic Diameter PLAX 5.6 cm 4.2 - 5.9 / 3.9 - 5.3 cm LV Systolic Diameter PLAX 4.1 cm IVS Diastolic Thickness 1.3 cm 0.6 - 1.0 / 0.6 - 0.9 cm LVPW Diastolic Thickness 1.2 cm 0.6 - 1.0 / 0.6 - 0.9 cm LV Relative Wall Thickness 0.5 RV Internal Dim ED PLAX 3.9 cm LA Systolic Diameter LX 5.4 cm 3.0 - 4.0 / 2.7 - 3.8 cm LA Volume 152.2 cm??? 18 - 58 / 22 - 52 cm??? M-MODE Aortic Root Diameter MM 4.0 cm LA Systolic Diameter MM 4.9 cm LA Ao Ratio MM 1.2 AV Cusp Separation MM 1.6 cm DOPPLER AV Peak Velocity 252.8 cm/s AV Peak Gradient 25.6 mmHg AV Mean Velocity 216.4 cm/s AV Mean Gradient 19.9 mmHg AV Velocity Time Integral 45.8 cm LVOT Peak Velocity 138.2 cm/s LVOT Peak Gradient 7.6 mmHg TR Peak Velocity 286.7 cm/s TR Peak Gradient 32.9 mmHg Right Ventricular Systolic Press 37.9 mmHg FINDINGS Left Ventricle Mildly increased septal wall thickness. Left ventricular ejection fraction is estimated at 55 %. Left ventricular cavity size normal. Right Ventricle Normal right ventricular size and function. Mild pulmonary hypertension. Right Atrium Normal right atrial size. Left Atrium Severely increased left atrial diameter. Severely increased left atrial volume. Moderately increased left atrial area. Mitral Valve Structurally normal mitral valve. Aortic Valve Mild aortic stenosis with a peak gradient of 26 mmHg and a mean gradient of 19 mmHg. Tricuspid Valve Structurally normal tricuspid valve. Mild tricuspid regurgitation. Pulmonic Valve Structurally normal pulmonic valve. Pericardium Normal pericardium. Aorta Aortic Root is mildly dilated and measures 4.1cm. CONCLUSIONS Normal LV systolic function Left atrial enlargement Mild aortic stenosis Mildly dilated aortic root Previewed by: Dr. José Manuel Ashford MD (Electronically Signed) Final Date: 20 August 2022 14:16
[2022-08-20] MEDS ORDERED: FUROSEMIDE 20 MG TAB PO SCH (16:00)
[2022-08-20 16:26] VITALS: BP 128/79; PULSE 95; TEMP 97.5
== END 2022-08-20 17:27 | disposition home or self-care (01) | DRG 291 ==
LOC: EC 12:18 → 3SCARD 14:38
PROVIDERS: ADMIT Internal Medicine; ATTEND Internal Medicine
DX: I11.0 Hypertensive heart disease with heart failure (principal); I50.31 Acute diastolic (congestive) heart failure; E78.5 Hyperlipidemia, unspecified; M54.50 Low back pain, unspecified; G89.29 Other chronic pain; Z20.822 Contact with and (suspected) exposure to COVID-19; I07.1 Rheumatic tricuspid insufficiency; K57.90 Diverticulosis of intestine, part unspecified, without perforation or abscess without bleeding; I27.20 Pulmonary hypertension, unspecified; K21.9 Gastro-esophageal reflux disease without esophagitis; M19.90 Unspecified osteoarthritis, unspecified site; R09.02 Hypoxemia; Z79.01 Long term (current) use of anticoagulants; Z79.82 Long term (current) use of aspirin; Z79.899 Other long term (current) drug therapy; Z86.16 Personal history of COVID-19; Z87.891 Personal history of nicotine dependence; Z96.643 Presence of artificial hip joint, bilateral; Z85.828 Personal history of other malignant neoplasm of skin; Z87.19 Personal history of other diseases of the digestive system; Z96.653 Presence of artificial knee joint, bilateral; Z87.11 Personal history of peptic ulcer disease
CPT/HCPCS: 36415; 71046; 80053; 83880; 84484; 85025; 85610; 85730; 87636; 93005; 93306; 96374; 96376; 99285

== ENCOUNTER 2022-11-30 10:23 | Day surgery (SDC) | payer MEDICARE ==
[2022-11-27 12:13] VITALS: BMI 30.7
[~2022-11-30 10:23] MED LIST changes: +LACTATED RINGERS 1,000 ML IV SCH; -ceFAZolin IN SWFI 2 GM/20 ML SYRINGE IVP ONE
[2022-11-30 10:56] VITALS: TEMP 97.7
[2022-11-30] MEDS ORDERED: PROPOFOL 10 MG/ML 20 ML VIAL IV ONE (11:27)
--- NOTE | 2022-11-30 11:47 | P.PCN ---
Date of Procedure: 11/30/22 Procedure(s) Performed: BRIEF HISTORY: Patient is a 77-year-old pleasant male scheduled for an elective colonoscopy as a part of evaluation of positive cologuard and screening for colon cancer. His last colonoscopy was 5 years ago PROCEDURE PERFORMED: Colonoscopy with biopsy. PREOPERATIVE DIAGNOSIS: Screening for colon cancer and positive cologuard. IV sedation per Anesthesia. PROCEDURE: After informed consent was obtained, the patient, was brought into the endoscopy unit. IV sedation was administered by Anesthesia under continuous monitoring. Digital rectal examination was normal. Initially the Olympus CF-160 flexible video colonoscope was then inserted in the rectum, gradually advanced into the cecum without any difficulty. Careful examination was performed as the scope was gradually being withdrawn. Ileocecal valve and the appendiceal orifice were visualized and appeared normal. Prep was excellent. Mucosa of the cecum, ascending colon, appeared normal. In the transverse colon there was a 3 mm sessile polyp removed by cold biopsy. Scattered left diverticulosis seen. Rest of the transverse colon, descending colon, sigmoid colon, and rectum appeared normal. Retroflexion was performed in the rectum and grade 2 internal hemorrhoids were seen. The patient tolerated the procedure well. IMPRESSION: 3 mm transverse colon polyp status post cold biopsy Scattered sigmoid diverticulosis Grade 2 internal hemorrhoids RECOMMENDATIONS: Findings of this examination were discussed with the patientand as well as his family. He was advised to follow with the biopsy results. He'll continue with a high-fiber diet and fiber supplements as needed.].
[2022-11-30 12:00] VITALS: RESP 16
[2022-11-30 12:12] VITALS: BP 142/90; PULSE 87
== END 2022-11-30 12:41 | disposition home or self-care (01) ==
LOC: ORWHC2ENDO 10:23
PROVIDERS: ATTEND Internal Medicine Gastroenterology
DX: K63.5 Polyp of colon (principal); K57.30 Diverticulosis of large intestine without perforation or abscess without bleeding; K64.1 Second degree hemorrhoids; I48.91 Unspecified atrial fibrillation; I10 Essential (primary) hypertension; E78.5 Hyperlipidemia, unspecified; K21.9 Gastro-esophageal reflux disease without esophagitis; Z79.899 Other long term (current) drug therapy
CPT/HCPCS: 88305; 45380; J2704

== ENCOUNTER 2023-02-10 15:33 | Emergency (ER) | payer MEDICARE ==
[2023-02-10 16:02] VITALS: TEMP 98.6
[2023-02-10 16:26] LABS: Basophils % (A) 0 %; Eosinophils # (A) 0.2 k/uL (0-0.7); Eosinophils % (A) 2 %; HCT 39.2 % (39.0-53.0); HGB 13.1 gm/dL (13.0-17.5); Lymphocytes # (A) 1.2 k/uL (1.0-4.8); Lymphocytes % (A) 12 %; MCH 32.9 pg (25.0-35.0); MCHC 33.3 g/dL (31.0-37.0); MCV 98.7 fL (80.0-100.0); Mean Platelet Volume 9.1; Monocytes # (A) 0.7 k/uL (0-1.0); Monocytes % (A) 7 %; Neutrophils # (A) 8.3 k/uL (1.3-7.7); Neutrophils % (A) 79 %; Platelet Count 164 k/uL (150-450); RBC 3.97 m/uL (4.30-5.90); RDW 14.1 % (11.5-15.5); WBC 10.6 k/uL (3.8-10.6)
[2023-02-10 16:39] LABS: Partial Thromboplastin Time 25.9 sec (22.0-30.0); Prothrombin Time 10.8 sec (9.0-12.0)
[2023-02-10 16:43] LABS: ALT 21 U/L (4-49); AST 23 U/L (17-59); African American GFR (CKD) >90 (>60 ml/min/1.73 sqM); Albumin 4.3 g/dL (3.5-5.0); Alkaline Phosphatase 87 U/L (38-126); Anion Gap 9 mmol/L; Blood Urea Nitrogen 16 mg/dL (9-20); Calcium 9.3 mg/dL (8.4-10.2); Carbon Dioxide 26 mmol/L (22-30); Chloride 103 mmol/L (98-107); Glucose 100 mg/dL (74-99); Magnesium 1.4 mg/dL (1.6-2.3); Non-African American GFR(CKD) 89 (>60 ml/min/1.73 sqM); Potassium 3.9 mmol/L (3.5-5.1); Sodium 138 mmol/L (137-145); Total Bilirubin 1.3 mg/dL (0.2-1.3); Total Protein 7.4 g/dL (6.3-8.2)
[2023-02-10] MEDS ORDERED: HYDROcodone/APAP 7.5-325MG 1 EACH TAB PO ONE (16:56)
[2023-02-10] MEDS ORDERED: MAGNESIUM SULFATE-D5W PMX 1 GM in DEXTROSE/WATER 1 100ML.BAG IVPB ONE (16:57)
--- NOTE | 2023-02-10 16:57 | ED ---
Chest Pain HPI - General Chief Complaint: Chest Pain Stated Complaint: Chest congestion,sob Source: patient Mode of arrival: wheelchair - History of Present Illness Initial Comments: This patient is a 77-year-old man who resents with complaint that he is just not feeling well. The patient states that he had been doing well yesterday but after waking up today noted he just didn't feel right. He has noted some orthopnea and some exertional dyspnea. He has had some chest sensations but did not acknowledge chest pain. No fever or chills. No cough. MD Complaint: other -: hour(s) Pain Radiation: none Consistency: constant Improves With: nothing Worsens With: nothing Other Symptoms: palpitations Treatments Prior to Arrival: none - Related Data Home Medications Medication Instructions Recorded Confirmed Atenolol 100 mg PO DAILY 01/20/14 02/11/23 Diltiazem Cd [Cardizem CD] 300 mg PO DAILY 01/20/14 02/11/23 Omeprazole 20 mg PO DAILY 01/02/19 02/11/23 Atorvastatin [Lipitor] 20 mg PO DAILY 09/22/21 02/11/23 lisinopriL [Zestril] 20 mg PO DAILY 10/18/21 02/11/23 Aspirin 81 mg PO DAILY 02/11/23 02/11/23 HYDROcodone/APAP 5-325MG [[place] 1 tab PO TID PRN 02/11/23 02/11/23 5-325] Ibuprofen [Motrin] 800 mg PO TID PRN 02/11/23 02/11/23 Previous Rx's Medication Instructions Recorded Apixaban [Eliquis] 5 mg PO BID #60 tab 05/29/17 Furosemide [Lasix] 40 mg PO BID #60 tablet 02/13/23 Spironolactone [Aldactone] 12.5 mg PO DAILY #30 tablet 02/13/23 Allergies Allergy/AdvReac Type Severity Reaction Status Date / Time No Known Allergies Allergy Verified 02/11/23 17:55 Review of Systems ROS Statement: Those systems with pertinent positive or pertinent negative responses have been documented in the HPI. ROS Other: All systems not noted in ROS Statement are negative. Constitutional: Denies: fever, chills Respiratory: Denies: cough Cardiovascular: Reports: palpitations, dyspnea on exertion, orthopnea, edema. Denies: chest pain, syncope Gastrointestinal: Denies: abdominal pain, vomiting, diarrhea Genitourinary: Denies: dysuria Musculoskeletal: Denies: back pain Skin: Denies: rash Neurological: Denies: headache, weakness EKG Findings - EKG Results: EKG: interpreted by BEVERLEY, normal axis, normal QRS, normal ST/T EKG shows: atrial fibrillation (Rate 82 bpm) Past Medical History Past Medical History: Atrial Fibrillation, Cancer, Heart Failure, GERD/Reflux, Hyperlipidemia, Hypertension, Osteoarthritis (OA) Additional Past Medical History / Comment(s): diverticular disease, bleeding duodenal ulcer, gastritis, hemorrhoids, chronic low back pain, vertigo at times, skin cancer with removal, CHF History of Any Multi-Drug Resistant Organisms: None Reported Past Surgical History: Appendectomy, Joint Replacement, Orthopedic Surgery, Tonsillectomy Additional Past Surgical History / Comment(s): Total L/R knee arthroplasty, bilateral total hip arthroplasties, bilateral carpal tunnel releases, L foot bone removed/hardware since removed and had spacer placed, steroid back injections, colonoscopies, basal cell skin cancer removed. Past Anesthesia/Blood Transfusion Reactions: No Reported Reaction Additional Past Anesthesia/Blood Transfusion Reaction / Comment(s): . Past Psychological History: No Psychological Hx Reported Smoking Status: Former smoker Past Alcohol Use History: Daily Past Drug Use History: None Reported - Past Family History Brother(s) Family Medical History: Cancer Mother Family Medical History: Cancer Additional Family Medical History / Comment(s): Mother lived to be 90yrs old. b reast cancer Father Family Medical History: No Reported History Additional Family Medical History / Comment(s): Father lived to be in his early 80's. General Exam General appearance: alert, in no apparent distress Head exam: Present: atraumatic, normocephalic Eye exam: Present: normal appearance. Absent: scleral icterus, conjunctival injection Neck exam: Present: normal inspection Respiratory exam: Present: rales (Bilateral bases). Absent: respiratory distress, wheezes, rhonchi, stridor Cardiovascular Exam: Present: normal rhythm, irregular rhythm, systolic murmur. Absent: normal heart sounds, diastolic murmur, rubs, gallop GI/Abdominal exam: Present: soft. Absent: distended, tenderness, guarding, rebound, rigid, mass Extremities exam: Present: normal inspection, normal capillary refill. Absent: pedal edema, calf tenderness Back exam: Present: normal inspection. Absent: CVA tenderness (R), CVA tenderness (L) Neurological exam: Present: alert Skin exam: Present: warm, dry, intact, normal color. Absent: rash Course Vital Signs 02/10/23 02/10/23 02/10/23 15:58 16:20 17:02 Temperature 98.6 F Pulse Rate 73 89 Respiratory 19 20 20 Rate Blood Pressure 160/94 173/103 O2 Sat by Pulse 98 92 L Oximetry 02/10/23 02/10/23 02/10/23 18:00 19:00 19:29 Temperature Pulse Rate 89 92 Respiratory 20 18 18 Rate Blood Pressure 162/106 148/98 148/98 O2 Sat by Pulse 92 L 95 Oximetry 02/10/23 20:05 Temperature Pulse Rate 96 Respiratory 20 Rate Blood Pressure 157/96 O2 Sat by Pulse 94 L Oximetry Chest Pain MDM - MDM This patient had a chest x-ray which I interpreted as being negative for acute infiltrate or pneumothorax, but does show cardiomegaly and vascular congestion consistent with CHF This patient is 77-year-old man presenting with complaint that he is not feeling well in general. He is found to be in exacerbation of congestive heart failure. The patient did receive medical treatment and has had improvement is feeling better and would like to go home. Did discuss admission but at this point he would like to try further treatment at home and will return if he worsens or any new symptoms develop. Was pt. sent in by a medical professional or institution ([facility], HYDRAULIC BLOCKER, urgent care, hospital, or snf...) When possible be specific @ -[No] Did you speak to anyone other than the patient for history (EMS, parent, family, police, friend...)? What history was obtained from this source @ -[Patient's family did give history Did you review nursing and triage notes (agree or disagree)? Why? @ -[I reviewed and agree with nursing and triage notes] Were old charts reviewed (outside hosp., previous admission, EMS record, old EKG, old radiological studies, urgent care reports/EKG's, snf records)? Report findings @ -[old charts were reviewed] Differential Diagnosis (chest pain, altered mental status, abdominal pain women, abdominal pain men, vaginal bleeding, weakness, fever, dyspnea, syncope, headache, dizziness, GI bleed, back pain, seizure, CVA, palpatations, mental health, musculoskeletal)? @ -[Differential Weakness: Hypoglycemia, shock, sepsis, hyponatremia, anemia, infection, WA, ETOH, adverse medicine reaction, overdose, stroke, congestive heart failure, this is not meant to be an all-inclusive list. EKG interpreted by me (3pts min.). @ -[As above] X-rays interpreted by me (1pt min.). @ -[As above CT interpreted by me (1pt min.). @ -[None done] U/S interpreted by me (1pt. min.). @ -[None done] What testing was considered but not performed or refused? (CT, X-rays, U/S, labs)? Why? @ -[None] What meds were considered but not given or refused? Why? @ -[None] Did you discuss the management of the patient with other professionals (professionals i.e. , PA, HYDRAULIC BLOCKER, lab, RT, psych nurse, social science analyst, attorney lawyer, teacher, booking officer, ed case manager)? Give summary @ -[No] Was smoking cessation discussed for >3mins.? @ -[No] Was critical care preformed (if so, how long)? @ -[No] Were there social determinants of health that impacted care today? How? (Homelessness, low income, unemployed, alcoholism, drug addiction, transportation, low edu. Level, literacy, decrease access to med. care, long-term, rehab)? @ -[No] Was there de-escalation of care discussed even if they declined (Discuss DNR or withdrawal of care, Hospice)? DNR status @ -[No] What co-morbidities impacted this encounter? (DM, HTN, Smoking, COPD, CAD, Cancer, CVA, ARF, Chemo, Hep., AIDS, mental health diagnosis, sleep apnea, morbid obesity)? @ -[None] Was patient admitted / discharged? Hospital course, mention meds given and route, prescriptions, significant lab abnormalities, going to OR and other pertinent info. @ -[Discharged Undiagnosed new problem with uncertain prognosis? @ -[No] Drug Therapy requiring intensive monitoring for toxicity (Heparin, Nitro, Insulin, Cardizem)? @ -[No] Were any procedures done? @ -[No] Diagnosis/symptom? @ -[Acute exacerbation of congestive heart failure, uncomplicated Acute, or Chronic, or Acute on Chronic? @ -[default] Uncomplicated (without systemic symptoms) or Complicated (systemic symptoms)? @ -[default] Side effects of treatment? @ -[No] Exacerbation, Progression, or Severe Exacerbation? @ -[No] Poses a threat to life or bodily function? How? (Chest pain, USA, [place], pneumonia, PE, COPD, DKA, ARF, appy, cholecystitis, CVA, Diverticulitis, Homicidal, Suicidal, threat to staff... and all critical care pts) @ -[Yes, untreated congestive heart failure can progress and if there is decompensation may result in respiratory failure or acute WA Disposition Clinical Impression: Acute exacerbation of CHF (congestive heart failure) Disposition: HOME SELF-CARE Condition: Good Instructions (If sedation given, give patient instructions): Heart Failure (DC) Additional Instructions: Take your Lasix twice per day on the following [address] Rice in the morning to arrange close follow-up. Return here if there is any worsening or new symptoms develop. Is patient prescribed a controlled substance at d/c from ED?: No Referrals: Chris Rice MD [Primary Care Provider] - 1-2 days
--- NOTE | 2023-02-10 17:07 | XR ---
EXAMINATION TYPE: XR chest 2V DATE OF EXAM: 02/10/2023 4:34 PM COMPARISON: Chest radiographs from 08/18/2022. TECHNIQUE: XR chest 2V Frontal and lateral views of the chest. CLINICAL INDICATION:Male, 77 years old with history of Chest Pain; FINDINGS: Lungs/Pleura: No evidence of focal consolidation or pneumothorax. Blunting of the costophrenic angles is present. Pulmonary vascularity: Pulmonary vascular congestion. Heart/mediastinum: Cardiomediastinal silhouette is enlarged and stable. Musculoskeletal: No acute osseous pathology. IMPRESSION: Cardiomegaly and mild pulmonary vascular congestion. Correlate with BNP for congestive heart failure.
[2023-02-10] MEDS ORDERED: FUROSEMIDE 10 MG/ML 4 ML VIAL IV STA (17:27)
[2023-02-10] MEDS ORDERED: NITROGLYCERIN OINT 1 INCH/GM PACKET TOPICAL STA (18:19)
[2023-02-10] MEDS ORDERED: NITROGLYCERIN SL TABS 0.4 MG TAB SUBLINGUAL STA (20:00)
[2023-02-10 20:07] VITALS: BP 157/96; PULSE 96; RESP 20
== END 2023-02-10 20:13 | disposition home or self-care (01) ==
LOC: EC 15:33
DX: I50.21 Acute systolic (congestive) heart failure (principal); I48.91 Unspecified atrial fibrillation; I11.0 Hypertensive heart disease with heart failure; I50.9 Heart failure, unspecified; E78.5 Hyperlipidemia, unspecified; K21.9 Gastro-esophageal reflux disease without esophagitis; M19.90 Unspecified osteoarthritis, unspecified site; Z87.891 Personal history of nicotine dependence; Z79.1 Long term (current) use of non-steroidal anti-inflammatories (NSAID); Z79.82 Long term (current) use of aspirin; Z79.899 Other long term (current) drug therapy; Z79.01 Long term (current) use of anticoagulants
CPT/HCPCS: 36415; 93005; 85379; 83880; 80053; 83735; 84484; 85025; 85610; 85730; 87636; 71046; 99285; 96365; 96375; J1940; J3475

== ENCOUNTER 2023-02-11 14:50 | Inpatient (IN) | payer MEDICARE ==
--- NOTE | 2023-02-11 16:01 | ED ---
General Adult HPI - General Chief complaint: Shortness of Breath Stated complaint: Chest Pain Time Seen by Provider: 02/11/23 15:12 Source: patient, family, RN notes reviewed Mode of arrival: ambulatory Limitations: no limitations - History of Present Illness Initial comments: Patient is a pleasant 77-year-old male presenting to the emergency Department with chest discomfort and dyspnea. Onset of symptoms was just a couple days ago. Patient does have some leg swelling without calf pain. Dyspnea does worsen with lying flat. Chest discomfort feels like heaviness and has been mild. - Related Data Home Medications Medication Instructions Recorded Confirmed Atenolol 100 mg PO DAILY 01/20/14 02/11/23 Diltiazem Cd [Cardizem CD] 300 mg PO DAILY 01/20/14 02/11/23 Omeprazole 20 mg PO DAILY 01/02/19 02/11/23 Atorvastatin [Lipitor] 20 mg PO DAILY 09/22/21 02/11/23 lisinopriL [Zestril] 20 mg PO DAILY 10/18/21 02/11/23 Furosemide [Lasix] 20 mg PO BID 11/27/22 02/11/23 Aspirin 81 mg PO DAILY 02/11/23 02/11/23 HYDROcodone/APAP 5-325MG [[place] 1 tab PO TID PRN 02/11/23 02/11/23 5-325] Ibuprofen [Motrin] 800 mg PO TID PRN 02/11/23 02/11/23 Previous Rx's Medication Instructions Recorded Apixaban [Eliquis] 5 mg PO BID #60 tab 05/29/17 Allergies Allergy/AdvReac Type Severity Reaction Status Date / Time No Known Allergies Allergy Verified 02/11/23 17:55 Review of Systems ROS Statement: Those systems with pertinent positive or pertinent negative responses have been documented in the HPI. ROS Other: All systems not noted in ROS Statement are negative. Constitutional: Denies: fever Eyes: Denies: eye pain ENT: Denies: ear pain Respiratory: Reports: as per HPI, dyspnea. Denies: cough Cardiovascular: Reports: as per HPI, chest pain Endocrine: Denies: fatigue Gastrointestinal: Denies: abdominal pain Genitourinary: Denies: dysuria Musculoskeletal: Denies: back pain Skin: Denies: rash Neurological: Denies: weakness Past Medical History Past Medical History: Atrial Fibrillation, Cancer, Heart Failure, GERD/Reflux, Hyperlipidemia, Hypertension, Osteoarthritis (OA) Additional Past Medical History / Comment(s): diverticular disease, bleeding duodenal ulcer, gastritis, hemorrhoids, chronic low back pain, vertigo at times, skin cancer with removal, CHF History of Any Multi-Drug Resistant Organisms: None Reported Past Surgical History: Appendectomy, Joint Replacement, Orthopedic Surgery, Tonsillectomy Additional Past Surgical History / Comment(s): Total L/R knee arthroplasty, bilateral total hip arthroplasties, bilateral carpal tunnel releases, L foot bone removed/hardware since removed and had spacer placed, steroid back inject ions, colonoscopies, basal cell skin cancer removed. Past Anesthesia/Blood Transfusion Reactions: No Reported Reaction Additional Past Anesthesia/Blood Transfusion Reaction / Comment(s): . Past Psychological History: No Psychological Hx Reported Smoking Status: Former smoker Past Alcohol Use History: Daily Past Drug Use History: None Reported - Past Family History Brother(s) Family Medical History: Cancer Mother Family Medical History: Cancer Additional Family Medical History / Comment(s): Mother lived to be 90yrs old. breast cancer Father Family Medical History: No Reported History Additional Family Medical History / Comment(s): Father lived to be in his early 80's. General Exam Limitations: no limitations General appearance: alert, in no apparent distress Head exam: Present: normocephalic Eye exam: Present: normal appearance Neck exam: Present: normal inspection Respiratory exam: Present: decreased breath sounds Cardiovascular Exam: Present: irregular rhythm GI/Abdominal exam: Present: soft. Absent: tenderness Extremities exam: Present: pedal edema. Absent: calf tenderness Neurological exam: Present: alert Psychiatric exam: Present: normal affect, normal mood Skin exam: Present: normal color Course Vital Signs 02/11/23 02/11/23 02/11/23 15:04 17:13 18:46 Temperature 98.2 F 98.2 F Pulse Rate 75 72 66 Respiratory 20 18 18 Rate Blood Pressure 144/81 154/88 150/105 O2 Sat by Pulse 95 94 L 92 L Oximetry EKG Findings - EKG Results: EKG: interpreted by ERMD, normal axis, normal QRS, normal ST/T EKG shows: atrial fibrillation Medical Decision Making - Medical Decision Making Was pt. sent in by a medical professional or institution (, PA, INSURANCE CLAIMS ANALYST, urgent care, hospital, or care home...) When possible be specific @ -No Did you speak to anyone other than the patient for history (EMS, parent, family, police, friend...)? What history was obtained from this source @ - is present and helps right history including patient's recent visit yesterday Did you review nursing and triage notes (agree or disagree)? Why? @ -I reviewed and agree with nursing and triage notes Were old charts reviewed (outside hosp., previous admission, EMS record, old EKG, old radiological studies, urgent care reports/EKG's, care home records)? Report findings @ -Chest x-ray from yesterday reviewed Differential Diagnosis (chest pain, altered mental status, abdominal pain women, abdominal pain men, vaginal bleeding, weakness, fever, dyspnea, syncope, headache, dizziness, GI bleed, back pain, seizure, CVA, palpatations, mental health)? @ -Differential Dyspnea: Coronary syndrome, arrhythmia, tamponade, asthma, COPD, pulmonary embolism, pneumonia, pneumothorax, pulmonary effusion, anaphylaxis, diabetic ketoacidosis, flailed chest, pulmonary contusion, diaphragmatic rupture, anemia, neuromuscular, this is not meant to be an all-inclusive list. EKG interpreted by me (3pts min.). @ -As above X-rays interpreted by me (1pt min.). @ -Chest x-ray shows CHF CT interpreted by me (1pt min.). @ -None done U/S interpreted by me (1pt. min.). @ -None done What testing was considered but not performed or refused? (CT, X-rays, U/S, labs)? Why? @ -None What meds were considered but not given or refused? Why? @ -None Did you discuss the management of the patient with other professionals (professionals i.e. DrJames, PA, INSURANCE CLAIMS ANALYST, lab, RT, psych nurse, social work case manager, farmworker rice, teacher, electronic warfare officer, watch case polisher)? Give summary @ -Case was discussed with Dr. Allen, who will admit for Dr. Rice Was smoking cessation discussed for >3mins.? @ -No Was critical care preformed (if so, how long)? @ -No Were there social determinants of health that impacted care today? How? (Homelessness, low income, unemployed, alcoholism, drug addiction, transportation, low edu. Level, literacy, decrease access to med. care, chcf, rehab)? @ -No Was there de-escalation of care discussed even if they declined (Discuss DNR or withdrawal of care, Hospice)? DNR status @ -No What co-morbidities impacted this encounter? (DM, HTN, Smoking, COPD, CAD, Cancer, CVA, ARF, Chemo, Hep., AIDS, mental health diagnosis, sleep apnea, morbid obesity)? @ -None Was patient admitted / discharged? Hospital course, mention meds given and route, prescriptions, significant lab abnormalities, going to OR and other p ertinent info. @ -Patient reevaluated. Patient and family updated. Patient will be admitted for treatment with heart failure Undiagnosed new problem with uncertain prognosis? @ -No Drug Therapy requiring intensive monitoring for toxicity (Heparin, Nitro, Insulin, Cardizem)? @ -No Were any procedures done? @ -No Diagnosis/symptom? @ -CHF Acute, or Chronic, or Acute on Chronic? @ -Acute Uncomplicated (without systemic symptoms) or Complicated (systemic symptoms)? @ -default Side effects of treatment? @ -No Exacerbation, Progression, or Severe Exacerbation? @ -Exacerbation Poses a threat to life or bodily function? How? (Chest pain, [place], [place], pneumonia, PE, COPD, DKA, ARF, appy, cholecystitis, CVA, Diverticulitis, Homicidal, Suicidal, threat to staff... and all critical care pts) @ -No - Lab Data Result diagrams: 02/11/23 15:30 02/11/23 15:30 Lab Results 02/11/23 02/11/23 02/11/23 Range/Units 15:30 15:30 15:30 WBC 11.5 H (3.8-10.6) k/uL RBC 3.90 L (4.30-5.90) m/uL Hgb 12.9 L (13.0-17.5) gm/dL Hct 38.4 L (39.0-53.0) % MCV 98.3 (80.0-100.0) fL MCH 33.0 (25.0-35.0) pg MCHC 33.6 (31.0-37.0) g/dL RDW 14.0 (11.5-15.5) % Plt Count 174 (150-450) k/uL MPV 9.2 Neutrophils % 79 % Lymphocytes % 11 % Monocytes % 8 % Eosinophils % 0 % Basophils % 0 % Neutrophils # 9.0 H (1.3-7.7) k/uL Lymphocytes # 1.3 (1.0-4.8) k/uL Monocytes # 1.0 (0-1.0) k/uL Eosinophils # 0.0 (0-0.7) k/uL Basophils # 0.0 (0-0.2) k/uL PT 11.0 (9.0-12.0) sec INR 1.1 (<1.2) APTT 29.8 (22.0-30.0) sec Sodium 138 (137-145) mmol/L Potassium 3.8 (3.5-5.1) mmol/L Chloride 105 (98-107) mmol/L Carbon Dioxide 22 (22-30) mmol/L Anion Gap 11 mmol/L BUN 15 (9-20) mg/dL Creatinine 0.64 L (0.66-1.25) mg/dL Est GFR (CKD-EPI)AfAm >90 (>60 ml/min/1.73 sqM) Est GFR (CKD-EPI)NonAf >90 (>60 ml/min/1.73 sqM) Glucose 117 H (74-99) mg/dL Plasma Lactic Acid Fortino (0.7-2.0) mmol/L Calcium 9.7 (8.4-10.2) mg/dL Magnesium 1.9 (1.6-2.3) mg/dL Total Bilirubin 1.7 H (0.2-1.3) mg/dL AST 22 (17-59) U/L ALT 18 (4-49) U/L Alkaline Phosphatase 80 (38-126) U/L Troponin I (0.000-0.034) ng/mL NT-Pro-B Natriuret Pep pg/mL Total Protein 7.2 (6.3-8.2) g/dL Albumin 4.2 (3.5-5.0) g/dL 02/11/23 02/11/23 02/11/23 Range/Units 15:30 15:30 16:08 WBC (3.8-10.6) k/uL RBC (4.30-5.90) m/uL Hgb (13.0-17.5) gm/dL Hct (39.0-53.0) % MCV (80.0-100.0) fL MCH (25.0-35.0) pg MCHC (31.0-37.0) g/dL RDW (11.5-15.5) % Plt Count (150-450) k/uL MPV Neutrophils % % Lymphocytes % % Monocytes % % Eosinophils % % Basophils % % Neutrophils # (1.3-7.7) k/uL Lymphocytes # (1.0-4.8) k/uL Monocytes # (0-1.0) k/uL Eosinophils # (0-0.7) k/uL Basophils # (0-0.2) k/uL PT (9.0-12.0) sec INR (<1.2) APTT (22.0-30.0) sec Sodium (137-145) mmol/L Potassium (3.5-5.1) mmol/L Chloride (98-107) mmol/L Carbon Dioxide (22-30) mmol/L Anion Gap mmol/L BUN (9-20) mg/dL Creatinine (0.66-1.25) mg/dL Est GFR (CKD-EPI)AfAm (>60 ml/min/1.73 sqM) Est GFR (CKD-EPI)NonAf (>60 ml/min/1.73 sqM) Glucose (74-99) mg/dL Plasma Lactic Acid Fortino 1.1 (0.7-2.0) mmol/L Calcium (8.4-10.2) mg/dL Magnesium (1.6-2.3) mg/dL Total Bilirubin (0.2-1.3) mg/dL AST (17-59) U/L ALT (4-49) U/L Alkaline Phosphatase (38-126) U/L Troponin I <0.012 (0.000-0.034) ng/mL NT-Pro-B Natriuret Pep 2470 pg/mL Total Protein (6.3-8.2) g/dL Albumin (3.5-5.0) g/dL Disposition Clinical Impression: CHF (congestive heart failure) Disposition: ADMITTED IP TO THIS HOSP Is patient prescribed a controlled substance at d/c from ED?: No Referrals: Chris Rice MD [Primary Care Provider] - 1-2 days Time of Disposition: 19:18
[2023-02-11 16:16] LABS: Basophils % (A) 0 %; Eosinophils % (A) 0 %; HCT 38.4 % (39.0-53.0); HGB 12.9 gm/dL (13.0-17.5); Lymphocytes # (A) 1.3 k/uL (1.0-4.8); Lymphocytes % (A) 11 %; MCHC 33.6 g/dL (31.0-37.0); MCV 98.3 fL (80.0-100.0); Mean Platelet Volume 9.2; Monocytes % (A) 8 %; Neutrophils % (A) 79 %; Platelet Count 174 k/uL (150-450); WBC 11.5 k/uL (3.8-10.6)
[2023-02-11 16:27] LABS: INR 1.1 (<1.2); Partial Thromboplastin Time 29.8 sec (22.0-30.0)
[2023-02-11 16:31] LABS: ALT 18 U/L (4-49); AST 22 U/L (17-59); African American GFR (CKD) >90 (>60 ml/min/1.73 sqM); Albumin 4.2 g/dL (3.5-5.0); Alkaline Phosphatase 80 U/L (38-126); Anion Gap 11 mmol/L; Blood Urea Nitrogen 15 mg/dL (9-20); Calcium 9.7 mg/dL (8.4-10.2); Carbon Dioxide 22 mmol/L (22-30); Chloride 105 mmol/L (98-107); Glucose 117 mg/dL (74-99); Magnesium 1.9 mg/dL (1.6-2.3); Non-African American GFR(CKD) >90 (>60 ml/min/1.73 sqM); Potassium 3.8 mmol/L (3.5-5.1); Sodium 138 mmol/L (137-145); Total Bilirubin 1.7 mg/dL (0.2-1.3); Total Protein 7.2 g/dL (6.3-8.2)
--- NOTE | 2023-02-11 16:37 | XR ---
EXAMINATION TYPE: XR chest 2V DATE OF EXAM: 02/11/2023 4:25 PM COMPARISON: Chest radiographs from 02/10/2023 TECHNIQUE: XR chest 2V Frontal and lateral views of the chest. CLINICAL INDICATION:Male, 77 years old with history of difficulty breathing; FINDINGS: Lungs/Pleura: There is no evidence of pleural effusion, focal consolidation, or pneumothorax. Pulmonary vascularity: Pulmonary vascular congestion. Heart/mediastinum: Cardiomediastinal silhouette is enlarged and stable. Musculoskeletal: No acute osseous pathology. IMPRESSION: Similar, Cardiomegaly and mild pulmonary vascular congestion. Correlate with BNP for congestive heart failure.
[2023-02-11] MEDS ORDERED: ASPIRIN 325 MG TAB PO STA (19:18)
[2023-02-11] MEDS: NITROGLYCERIN OINT 1 INCH/GM PACKET TOPICAL SCH ×2 (19:45→23:29)
[2023-02-11] MEDS: FUROSEMIDE 10 MG/ML 4 ML VIAL IV SCH (19:45)
[2023-02-12] MEDS: FUROSEMIDE 10 MG/ML 4 ML VIAL IV SCH ×3 (03:36→20:22)
[2023-02-12] MEDS: NITROGLYCERIN OINT 1 INCH/GM PACKET TOPICAL SCH ×3 (06:35→17:34)
[2023-02-12] MEDS ORDERED: ASPIRIN 325 MG TAB PO SCH (09:00)
[2023-02-12] MEDS: ATORVASTATIN 20 MG TAB PO SCH (09:06)
[2023-02-12] MEDS: lisinopriL 20 MG TAB PO SCH (09:06)
[2023-02-12] MEDS: PANTOPRAZOLE 40 MG TABLET PO SCH (09:06)
[2023-02-12] MEDS: APIXABAN 5 MG TAB PO SCH ×2 (09:06→20:22)
[2023-02-12] MEDS: atenoloL 50 MG TAB PO SCH (09:06)
[2023-02-12] MEDS: DILTIAZEM CD 300 MG CAP.ER.24H PO SCH (09:07)
[2023-02-12] MEDS: ASPIRIN 81 MG PO SCH (09:07)
[2023-02-12 11:00] LABS: T4, Free (Free Thyroxine) 1.45 ng/dL (0.78-2.19)
--- NOTE | 2023-02-12 11:08 | P.CRDCN ---
History of Present Illness Consult date: 02/12/23 Consult reason: congestive heart failure History of present illness: HISTORY OF PRESENT ILLNESS: This is a 77-year-old male patient of Dr. Ashford with a past medical history significant for permanent atrial fibrillation on eliquis, hypertension, and GERD. We have been asked to see the patient in consultation for CHF. The patient presented to the hospital with a chief complaint of elevated blood pressure along with difficulty in breathing and a little chest pain, headache. He states his symptoms started on Saturday. He has been taking all of his medications as instructed. Blood pressure in the emergency center is up 256/103. He was st arted on IV Lasix 40 mg every 8 hours and home medications resumed. Patient is seen in the emergency center waiting for a bed on the cardiac stepdown unit. EKG reveals A. fib with heart rate 71 Chest xray cardiomegaly and mild pulmonary vascular congestion. Laboratory data: WBC 11.5, hemoglobin 12.9, Pletal 174. Electrolytes normal with potassium of 3.8. BUN 15, creatinine 0.64. Blood sugar 117. Troponin negative 3. Magnesium 1.9. ProBNP 2470. TSH 0.233 with a normal free T4 1 0.45. Current home cardiac medications include Eliquis 5 mg twice a day, aspirin 81 mg daily, atenolol 100 mg daily, atorvastatin 20 mg daily Cardizem CD 300 mg daily, Lasix 20 mg twice daily, lisinopril 20 mg daily Echocardiogram completed 07/2022 revealing ejection fraction 55, mild left atrial enlargement, mild aortic stenosis, mildly dilated aortic root. Lexiscan Cardiolite stress test revealed negative by EKG criteria. Probably normal myocardial perfusion and function. REVIEW OF SYSTEMS: At the time of evaluation Constitutional: No fever, no chills, no night sweats. No weight change. No we akness, fatigue or lethargy. No daytime sleepiness. EENT: No headache. No loss of vision. no dizziness. Lungs: Mild shortness of breath with improvement, cough, no sputum production. No wheezing. Cardiovascular: No chest pain, mild lower extremity edema. No palpitations. No paroxysmal nocturnal dyspnea. No orthopnea. No lightheadedness or dizziness. No syncopal episodes. Abdominal: No abdominal pain. No nausea, vomiting. No diarrhea. No constipation. No bloody or tarry stools.. No loss of appetite. Genitourinary: No dysuria, increased frequency, urgency. No urinary retention. Musculoskeletal: No myalgias. No muscle weakness, no gait dysfunction. Integumentary: No rash or pruritus. No unusual bruising. Neurologic: No aphasia. No facial droop. No change in mentation. No head injury. No headache. Psychiatric: No depression. No anxiety. PHYSICAL EXAM: Gen: This is a 77-year-old male. He is resting and appears to be comfortable, no acute distress noted. HEENT: Head is atraumatic, normocephalic. Pupils equal, round. Sclerae is anicteric. NECK: Supple. No JVD. No lymphadenopathy. No thyromegaly. LUNGS: Diminished in the bases. No intercostal retractions. HEART: Irregular rate and rhythm. No murmur. ABDOMEN: Soft. Bowel sounds are present. No masses. No tenderness. EXTREMITIES: Trace pedal edema. No calf tenderness. NEUROLOGICAL: Patient is awake, alert and oriented x3. Cranial nerves 2 through 12 are grossly intact. ASSESSMENT: Acute on chronic diastolic heart failure Persistent permanent atrial fibrillation Hypertension GERD Former nicotine dependence PLAN: Continue patient on Lasix 40 mg IV but decreased frequency to every 12 hours Continue patient's other cardiac medications Obtain limited 2-D echocardiogram Monitor I&O, electrolytes and renal function Further recommendations pending patient course Nurse practitioner note has been reviewed by physician. Signing provider agrees with the documented findings, assessment, and plan of care. Past Medical History Past Medical History: Atrial Fibrillation, Cancer, Heart Failure, GERD/Reflux, Hyperlipidemia, Hypertension, Osteoarthritis (OA) Additional Past Medical History / Comment(s): diverticular disease, bleeding duodenal ulcer, gastritis, hemorrhoids, chronic low back pain, vertigo at times, skin cancer with removal, CHF History of Any Multi-Drug Resistant Organisms: None Reported Past Surgical History: Appendectomy, Joint Replacement, Orthopedic Surgery, Tonsillectomy Additional Past Surgical History / Comment(s): Total L/R knee arthroplasty, bilateral total hip arthroplasties, bilateral carpal tunnel releases, L foot bone removed/hardware since removed and had spacer placed, steroid back injections, colonoscopies, basal cell skin cancer removed. Past Anesthesia/Blood Transfusion Reactions: No Reported Reaction Additional Past Anesthesia/Blood Transfusion Reaction / Comment(s): . Past Psychological History: No Psychological Hx Reported Smoking Status: Former smoker Past Alcohol Use History: Daily Past Drug Use History: None Reported - Past Family History Brother(s) Family Medical History: Cancer Mother Family Medical History: Cancer Additional Family Medical History / Comment(s): Mother lived to be 90yrs old. breast cancer Father Family Medical History: No Reported History Additional Family Medical History / Comment(s): Father lived to be in his early 80's. Medications and Allergies Home Medications Medication Instructions Recorded Confirmed Type Atenolol 100 mg PO DAILY 01/20/14 02/11/23 History Diltiazem Cd [Cardizem CD] 300 mg PO DAILY 01/20/14 02/11/23 History Apixaban [Eliquis] 5 mg PO BID #60 tab 05/29/17 02/11/23 Rx Omeprazole 20 mg PO DAILY 01/02/19 02/11/23 History Atorvastatin [Lipitor] 20 mg PO DAILY 09/22/21 02/11/23 History lisinopriL [Zestril] 20 mg PO DAILY 10/18/21 02/11/23 History Furosemide [Lasix] 20 mg PO BID 11/27/22 02/11/23 History Aspirin 81 mg PO DAILY 02/11/23 02/11/23 History HYDROcodone/APAP 5-325MG [[place] 1 tab PO TID PRN 02/11/23 02/11/23 History 5-325] Ibuprofen [Motrin] 800 mg PO TID PRN 02/11/23 02/11/23 History Allergies Allergy/AdvReac Type Severity Reaction Status Date / Time No Known Allergies Allergy Verified 02/11/23 17:55 Physical Exam Vitals: Vital Signs Temp Pulse Resp BP Pulse Ox 02/12/23 07:51 97 02/12/23 06:00 76 22 134/98 94 L 02/12/23 05:00 91 15 164/122 94 L 02/12/23 04:00 81 15 136/87 92 L 02/12/23 03:00 87 148/88 93 L 02/12/23 02:00 89 139/70 91 L 02/12/23 01:05 76 16 138/94 94 L 02/12/23 01:00 77 160/111 90 L 02/12/23 00:14 84 155/113 02/11/23 23:00 92 153/107 02/11/23 22:52 81 18 163/100 92 L 02/11/23 22:00 93 25 H 137/81 94 L 02/11/23 21:00 80 27 H 156/103 92 L 02/11/23 20:00 96 23 156/90 92 L 02/11/23 19:00 85 150/105 93 L 02/11/23 18:46 66 18 150/105 92 L 02/11/23 17:13 98.2 F 72 18 154/88 94 L 02/11/23 15:04 98.2 F 75 20 144/81 95 Intake and Output 02/11/23 02/12/23 02/12/23 22:59 06:59 14:59 Output Total 600 1600 1200 Balance -600 -1600 -1200 Output: Urine 600 1600 1200 Other: Weight 99.79 kg Results 02/11/23 15:30 02/11/23 15:30 Cardiac Enzymes 02/11/23 02/11/23 02/11/23 Range/Units 15:30 15:30 20:01 AST 22 (17-59) U/L Troponin I <0.012 <0.012 (0.000-0.034) ng/mL 02/11/23 Range/Units 22:33 AST (17-59) U/L Troponin I <0.012 (0.000-0.034) ng/mL Coagulation 02/11/23 Range/Units 15:30 PT 11.0 (9.0-12.0) sec APTT 29.8 (22.0-30.0) sec CBC 02/11/23 Range/Units 15:30 WBC 11.5 H (3.8-10.6) k/uL RBC 3.90 L (4.30-5.90) m/uL Hgb 12.9 L (13.0-17.5) gm/dL Hct 38.4 L (39.0-53.0) % Plt Count 174 (150-450) k/uL Comprehensive Metabolic Panel 02/11/23 Range/Units 15:30 Sodium 138 (137-145) mmol/L Potassium 3.8 (3.5-5.1) mmol/L Chloride 105 (98-107) mmol/L Carbon Dioxide 22 (22-30) mmol/L BUN 15 (9-20) mg/dL Creatinine 0.64 L (0.66-1.25) mg/dL Glucose 117 H (74-99) mg/dL Calcium 9.7 (8.4-10.2) mg/dL AST 22 (17-59) U/L ALT 18 (4-49) U/L Alkaline Phosphatase 80 (38-126) U/L Total Protein 7.2 (6.3-8.2) g/dL Albumin 4.2 (3.5-5.0) g/dL Current Medications Generic Name Dose Route Start Last Admin Trade Name Freq PRN Reason Stop Dose Admin Aspirin 325 mg 02/12/23 09:00 02/12/23 08:33 Aspirin 325 Mg Tab PO 325 mg DAILY CELESTINA Administration Furosemide 40 mg 02/11/23 20:00 02/12/23 03:36 Furosemide 10 Mg/Ml 4 Ml Vial IV 40 mg Q8H CELESTINA Administration Nitroglycerin 1 inch 02/11/23 19:30 02/12/23 06:35 Nitroglycerin Oint 1 Inch/Gm Packet TOPICAL 02/12/23 19:31 1 inch Q6HR CELESTINA Administration Intake and Output 02/11/23 02/12/23 02/12/23 22:59 06:59 14:59 Output Total 600 1600 1200 Balance -600 -1600 -1200 Output: Urine 600 1600 1200 Other: Weight 99.79 kg 02/11/23 15:30 02/11/23 15:30
--- NOTE | 2023-02-12 12:49 | CA ---
Transthoracic Echo Report Name: Jeremy Francois Age: 77 Gender: M : 1945 Exam Date: 02/12/2023 10:19 Exam Location: [facility] Ht (in): 71 Wt (lb): 220 Ordering Physician: Makayla Olmedo Attending/Referring Phys: [id number], Shara Cardiac Rn Carie Vazquez [facility] Procedure CPT: Indications: LVH Cardiac Hx: Technical Quality: Technically difficult study Contrast 1: Lumason Total Dose (mL): 5 Contrast 2: Total Dose (mL): MEASUREMENTS (Male / Female) Normal Values 2D ECHO LV Diastolic Diameter PLAX 5.1 cm 4.2 - 5.9 / 3.9 - 5.3 cm LV Systolic Diameter PLAX 3.8 cm IVS Diastolic Thickness 1.1 cm 0.6 - 1.0 / 0.6 - 0.9 cm LVPW Diastolic Thickness 1.2 cm 0.6 - 1.0 / 0.6 - 0.9 cm LV Relative Wall Thickness 0.5 DOPPLER TR Peak Velocity 227.5 cm/s TR Peak Gradient 20.7 mmHg Right Atrial Pressure 8.0 mmHg Pulmonary Artery Systolic Pressu 28.7 mmHg Right Ventricular Systolic Press 28.7 mmHg FINDINGS Left Ventricle Mildly increased left ventricular wall thickness. Left ventricular cavity size at the upper limits of normal. Normal Left ventricular size, wall thickness, systolic function with no obvious regional wall motion abnormalities. Left ventricular ejection fraction is estimated at 55-60%. Right Ventricle Right Atrium Left Atrium Mitral Valve Aortic Valve Tricuspid Valve Structurally normal tricuspid valve. Mild tricuspid regurgitation. Pulmonic Valve Pericardium No pericardial effusion. Aorta CONCLUSIONS Mildly increased left ventricular wall thickness Left ventricular ejection fraction 55-60% Mild tricuspid regurgitation No pericardial effusion Previewed by: Dr. Raj Dominguez DO (Electronically Signed) Final Date: 12 February 2023 12:48
[2023-02-12] MEDS ORDERED: HYDROcodone/APAP 5-325MG 1 EACH TAB PO PRN (12:54)
--- NOTE | 2023-02-12 12:55 | P.HPIM ---
History of Present Illness H&P Date: 02/12/23 History of present illness; patient is a 77-year-old gentleman with past medical history significant for atrial fibrillation on anticoagulation with Eliquis, hypertension, hyperlipidemia, GERD, osteoarthritis and history of bleeding duodenal ulcer and prior history of smoking who presented to the ER because of shortness of breath and chest pain for the last 2 days. Patient stated that he has been noticing increased shortness of breath on exertion. Also complaining of swelling of lower extremities. Patient also complains of chest pressure which is central in location, intermittent, nonradiating with no aggravating or relieving factors associated with this chest pressure. Patient also complaining of orthopnea and PND. Because his worsening shortness of breath, patient came to the ER initial lab work done in the ER showed platelet count 174, sodium 134 potassium 3.8, BUN 15, creatinine 0.64, troponin were normal, proBNP was 2470 chest x-ray done showed cardiomegaly and mild pulmonary vascular congestion patient was admitted to medicine service REVIEW OF SYSTEMS: CONSTITUTIONAL: No fever, no malaise, no fatigue. HEENT: No recent visual problems or hearing problems. Denied any sore throat. CARDIOVASCULAR as mentioned in HPI Pulmonary: As mentioned in HPI Gastrointestinal: No diarrhea, no nausea, no vomiting, no abdominal pain. NEUROLOGICAL: No headaches, no weakness, no numbness. HEMATOLOGICAL: Denies any bleeding or petechiae. GENITOURINARY: Denies any burning micturition, frequency, or urgency. MUSCULOSKELETAL/RHEUMATOLOGICAL: Denies any joint pain, swelling, or any muscle pain. ENDOCRINE: Denies any polyuria or polydipsia. The rest of the 14-point review of systems is negative. PHYSICAL EXAMINATION: GENERAL: The patient is alert and oriented x3, not in any acute distress. Well developed, well nourished. HEENT: Pupils are round and equally reacting to light. EOMI. No scleral icterus. No conjunctival pallor. Normocephalic, atraumatic. No pharyngeal erythema. No thyromegaly. CARDIOVASCULAR: S1 and S2 present. No murmurs, rubs, or gallops. PULMONARY: Chest is clear to auscultation, no wheezing or crackles. ABDOMEN: Soft, nontender, nondistended, normoactive bowel sounds. No palpable organomegaly. MUSCULOSKELETAL: No joint swelling or deformity. EXTREMITIES: No cyanosis, clubbing, 1+ pitting edema lower extremities NEUROLOGICAL: Gross neurological examination did not reveal any focal deficits. SKIN: No rashes. Assessment and plan acute on chronic diastolic CHF Chest pain Chronic atrial fibrillation ablation on anticoagulation Hypertension Hyperlipidemia Plan; monitor vital signs Monitor CBC Monitor CMP Strict I's and O's Daily weights Continue IV Lasix 40 mg every 12 Follow-up on 2-D echo Consult cardiology DVT prophylaxis: Past Medical History Past Medical History: Atrial Fibrillation, Cancer, Heart Failure, GERD/Reflux, Hyperlipidemia, Hypertension, Osteoarthritis (OA) Additional Past Medical History / Comment(s): diverticular disease, bleeding duodenal ulcer, gastritis, hemorrhoids, chronic low back pain, vertigo at times, skin cancer with removal, CHF History of Any Multi-Drug Resistant Organisms: None Reported Past Surgical History: Appendectomy, Joint Replacement, Orthopedic Surgery, Tonsillectomy Additional Past Surgical History / Comment(s): Total L/R knee arthroplasty, bilateral total hip arthroplasties, bilateral carpal tunnel releases, L foot bone removed/hardware since removed and had spacer placed, steroid back injections, colonoscopies, basal cell skin cancer removed. Past Anesthesia/Blood Transfusion Reactions: No Reported Reaction Additional Past Anesthesia/Blood Transfusion Reaction / Comment(s): . Past Psychological History: No Psychological Hx Reported Smoking Status: Former smoker Past Alcohol Use History: Daily Past Drug Use History: None Reported - Past Family History Brother(s) Family Medical History: Cancer Mother Family Medical History: Cancer Additional Family Medical History / Comment(s): Mother lived to be 90yrs old. breast cancer Father Family Medical History: No Reported History Additional Family Medical History / Comment(s): Father lived to be in his early 80's. Medications and Allergies Home Medications Medication Instructions Recorded Confirmed Type Atenolol 100 mg PO DAILY 01/20/14 02/11/23 History Diltiazem Cd [Cardizem CD] 300 mg PO DAILY 01/20/14 02/11/23 History Apixaban [Eliquis] 5 mg PO BID #60 tab 05/29/17 02/11/23 Rx Omeprazole 20 mg PO DAILY 01/02/19 02/11/23 History Atorvastatin [Lipitor] 20 mg PO DAILY 09/22/21 02/11/23 History lisinopriL [Zestril] 20 mg PO DAILY 10/18/21 02/11/23 History Furosemide [Lasix] 20 mg PO BID 11/27/22 02/11/23 History Aspirin 81 mg PO DAILY 02/11/23 02/11/23 History HYDROcodone/APAP 5-325MG [[place] 1 tab PO TID PRN 02/11/23 02/11/23 History 5-325] Ibuprofen [Motrin] 800 mg PO TID PRN 02/11/23 02/11/23 History Allergies Allergy/AdvReac Type Severity Reaction Status Date / Time No Known Allergies Allergy Verified 02/11/23 17:55 Physical Exam Vitals: Vital Signs Temp Pulse Resp BP Pulse Ox 02/12/23 08:46 90 18 134/97 97 02/12/23 07:51 97 02/12/23 06:00 76 22 134/98 94 L 02/12/23 05:00 91 15 164/122 94 L 02/12/23 04:00 81 15 136/87 92 L 02/12/23 03:00 87 148/88 93 L 02/12/23 02:00 89 139/70 91 L 02/12/23 01:05 76 16 138/94 94 L 02/12/23 01:00 77 160/111 90 L 02/12/23 00:14 84 155/113 02/11/23 23:00 92 153/107 02/11/23 22:52 81 18 163/100 92 L 02/11/23 22:00 93 25 H 137/81 94 L 02/11/23 21:00 80 27 H 156/103 92 L 02/11/23 20:00 96 23 156/90 92 L 02/11/23 19:00 85 150/105 93 L 02/11/23 18:46 66 18 150/105 92 L 02/11/23 17:13 98.2 F 72 18 154/88 94 L 02/11/23 15:04 98.2 F 75 20 144/81 95 Intake and Output 02/11/23 02/12/23 02/12/23 22:59 06:59 14:59 Output Total 600 1600 1200 Balance -600 -1600 -1200 Output: Urine 600 1600 1200 Other: Weight 99.79 kg Results CBC & Chem 7: 02/11/23 15:30 02/11/23 15:30 Labs: Abnormal Lab Results - Last 24 Hours (Table) 02/11/23 02/11/23 Range/Units 15:30 15:30 WBC 11.5 H (3.8-10.6) k/uL RBC 3.90 L (4.30-5.90) m/uL Hgb 12.9 L (13.0-17.5) gm/dL Hct 38.4 L (39.0-53.0) % Neutrophils # 9.0 H (1.3-7.7) k/uL Creatinine 0.64 L (0.66-1.25) mg/dL Glucose 117 H (74-99) mg/dL Total Bilirubin 1.7 H (0.2-1.3) mg/dL
[2023-02-13 06:08] VITALS: TEMP 97.8
[2023-02-13] MEDS: PANTOPRAZOLE 40 MG TABLET PO SCH (06:55)
[2023-02-13] MEDS: ASPIRIN 81 MG PO SCH (08:24)
[2023-02-13] MEDS: ATORVASTATIN 20 MG TAB PO SCH (08:24)
[2023-02-13] MEDS: FUROSEMIDE 10 MG/ML 4 ML VIAL IV SCH (08:24)
[2023-02-13] MEDS: DILTIAZEM CD 300 MG CAP.ER.24H PO SCH (08:24)
[2023-02-13] MEDS: APIXABAN 5 MG TAB PO SCH (08:24)
[2023-02-13] MEDS: lisinopriL 20 MG TAB PO SCH (08:24)
[2023-02-13] MEDS: atenoloL 50 MG TAB PO SCH (08:24)
--- NOTE | 2023-02-13 10:04 | P.PN ---
Subjective Progress Note Date: 02/13/23 HISTORY OF PRESENT ILLNESS: This is a 77-year-old male patient of Dr. Ashford with a past medical history significant for permanent atrial fibrillation on eliquis, hypertension, and GERD. We have been asked to see the patient in consultation for CHF. The patient presented to the hospital with a chief complaint of elevated blood pressure along with difficulty in breathing and a little chest pain, headache. He states his symptoms started on Saturday. He has been taking all of his medications as instructed. Blood pressure in the emergency center is up 256/103. He was started on IV Lasix 40 mg every 8 hours and home medications resumed. Patient is seen in the emergency center waiting for a bed on the cardiac stepdown unit. EKG reveals A. fib with heart rate 71 Chest xray cardiomegaly and mild pulmonary vascular congestion. Laboratory data: WBC 11.5, hemoglobin 12.9, Pletal 174. Electrolytes normal with potassium of 3.8. BUN 15, creatinine 0.64. Blood sugar 117. Troponin negative 3. Magnesium 1.9. ProBNP 2470. TSH 0.233 with a normal free T4 1 0.45. Current home cardiac medications include Eliquis 5 mg twice a day, aspirin 81 mg daily, atenolol 100 mg daily, atorvastatin 20 mg daily Cardizem CD 300 mg daily, Lasix 20 mg twice daily, lisinopril 20 mg daily Echocardiogram completed 07/2022 revealing ejection fraction 55, mild left atrial enlargement, mild aortic stenosis, mildly dilated aortic root. Lexiscan Cardiolite stress test revealed negative by EKG criteria. Probably normal myocardial perfusion and function. 02/13 Patient is seen today in follow-up on the cardiac stepdown unit. He denies having any shortness of breath and no chest pain. No lightheadedness or d izziness. He is complaining of cramping in his hands and calves. Stat magnesium and BMP ordered. We will transition IV Lasix to oral. Patient is anxious to be discharged today as he is planning to leave for [place] tomorrow for vacation. Limited echocardiogram revealed EF 55-60%, mild tricuspid regurgitation. No pericardial effusion. PHYSICAL EXAM: Gen: This is a 77-year-old male. He is resting and appears to be comfortable, no acute distress noted. HEENT: Head is atraumatic, normocephalic. Pupils equal, round. Sclerae is anicteric. NECK: Supple. No JVD. No lymphadenopathy. No thyromegaly. LUNGS: Diminished in the bases. No intercostal retractions. HEART: Irregular rate and rhythm. No murmur. ABDOMEN: Soft. Bowel sounds are present. No masses. No tenderness. EXTREMITIES: Trace pedal edema. No calf tenderness. NEUROLOGICAL: Patient is awake, alert and oriented x3. Cranial nerves 2 through 12 are grossly intact. ASSESSMENT: Acute on chronic diastolic heart failure Persistent permanent atrial fibrillation Hypertension GERD Former nicotine dependence PLAN: Discontinue IV Lasix and start patient on 40 mg twice daily which should be continued at the time of discharge. Obtain stat BMP and magnesium level If potassium is low, we will plan to add in Aldactone. Otherwise continue patient's home cardiac medications which she is currently on. Patient is cleared from cardiology for discharge home and may follow up in the office with Dr. Himanshu Ashford in one week. Further recommendations pending patient course Nurse practitioner note has been reviewed by physician. Signing provider agrees with the documented findings, assessment, and plan of care. Objective - Vital Signs Vital signs: Vital Signs Temp 97.8 F 02/13/23 08:20 Pulse 71 02/13/23 08:20 Resp 18 02/13/23 08:20 BP 110/75 02/13/23 08:20 Pulse Ox 92 L 02/13/23 08:20 FiO2 Intake & Output 02/12/23 02/13/23 02/13/23 18:59 06:59 18:59 Intake Total 180 480 Output Total 1200 250 Balance -1020 -250 480 Weight 99.79 kg 96.7 kg Intake: Oral 180 480 Output: Urine 1200 250 Other: # Voids 1 - Labs CBC & Chem 7: 02/11/23 15:30 02/11/23 15:30 Labs: Abnormal Lab Results - Last 24 Hours (Table) 02/11/23 Range/Units 15:30 TSH 0.233 L (0.465-4.680) mIU/L
[2023-02-13 11:17] LABS: African American GFR (CKD) 73 (>60 ml/min/1.73 sqM); Anion Gap 13 mmol/L; Blood Urea Nitrogen 30 mg/dL (9-20); Calcium 9.6 mg/dL (8.4-10.2); Carbon Dioxide 26 mmol/L (22-30); Chloride 101 mmol/L (98-107); Glucose 119 mg/dL (74-99); Magnesium 1.9 mg/dL (1.6-2.3); Non-African American GFR(CKD) 63 (>60 ml/min/1.73 sqM); Potassium 3.7 mmol/L (3.5-5.1); Sodium 140 mmol/L (137-145)
[2023-02-13 12:36] VITALS: BP 123/71; PULSE 73; RESP 17
--- NOTE | 2023-02-13 12:37 | P.DS ---
Providers Date of admission: 02/11/23 19:18 Expected date of discharge: 02/13/23 Attending physician: Aurelio Allen Consults: 02/11/23 19:18 Consult Physician Routine Consulting Provider: Yves Benito Consult Reason/Comments: chf Do you want consulting provider notified?: Yes Primary care physician: [facility] Hospital Course: Discharge diagnoses; acute on chronic diastolic CHF Chest pain Chronic atrial fibrillation ablation on anticoagulation Hypertension Hyperlipidemia Hospital course; patient is a 77-year-old gentleman with past medical history significant for atrial fibrillation on anticoagulation with Eliquis, hypertension, hyperlipidemia, GERD, osteoarthritis and history of bleeding duodenal ulcer and prior history of smoking who presented to the ER because of shortness of breath and chest pain for the last 2 days. Patient stated that he has been noticing increased shortness of breath on exertion. Also complaining of swelling of lower extremities. Patient also complains of chest pressure which is central in location, intermittent, nonradiating with no aggravating or relieving factors associated with this chest pressure. Patient also complaining of orthopnea and PND. Because his worsening shortness of breath, patient came to the ER initial lab work done in the ER showed platelet count 174, sodium 134 potassium 3.8, BUN 15, creatinine 0.64, troponin were normal, proBNP was 2470 chest x-ray done showed cardiomegaly and mild pulmonary vascular congestion patient was admitted to medicine service 02/13 Patient seen and examined. Patient was seen by cardiology, they recommended transitioning IV Lasix to oral. Limited echocardiogram revealed EF 55-60%, mild tricuspid regurgitation. No pericardial effusion. Cardiology cleared the patient for discharge PHYSICAL EXAMINATION: GENERAL: The patient is alert and oriented x3, not in any acute distress. Well developed, well nourished. HEENT: Pupils are round and equally reacting to light. EOMI. No scleral icterus. No conjunctival pallor. Normocephalic, atraumatic. No pharyngeal erythema. No thyromegaly. CARDIOVASCULAR: S1 and S2 present. No murmurs, rubs, or gallops. PULMONARY: Chest is clear to auscultation, no wheezing or crackles. ABDOMEN: Soft, nontender, nondistended, normoactive bowel sounds. No palpable organomegaly. MUSCULOSKELETAL: No joint swelling or deformity. EXTREMITIES: No cyanosis, clubbing, or pedal edema. NEUROLOGICAL: Gross neurological examination did not reveal any focal deficits. SKIN: No rashes. Plan - Discharge Summary Discharge Rx Participant: No New Discharge Prescriptions: New Furosemide [Lasix] 40 mg PO BID #60 tablet Spironolactone [Aldactone] 12.5 mg PO DAILY #30 tablet Continue Diltiazem Cd [Cardizem CD] 300 mg PO DAILY Atenolol 100 mg PO DAILY Apixaban [Eliquis] 5 mg PO BID #60 tab Omeprazole 20 mg PO DAILY Atorvastatin [Lipitor] 20 mg PO DAILY HYDROcodone/APAP 5-325MG [Guffey 5-325] 1 tab PO TID PRN PRN Reason: Pain Aspirin 81 mg PO DAILY lisinopriL [Zestril] 20 mg PO DAILY Ibuprofen [Motrin] 800 mg PO TID PRN PRN Reason: Pain Discontinued Furosemide [Lasix] 20 mg PO BID Discharge Medication List Atenolol 100 mg PO DAILY 01/20/14 [History] Diltiazem Cd [Cardizem CD] 300 mg PO DAILY 01/20/14 [History] Apixaban [Eliquis] 5 mg PO BID #60 tab 05/29/17 [Rx] Omeprazole 20 mg PO DAILY 01/02/19 [History] Atorvastatin [Lipitor] 20 mg PO DAILY 09/22/21 [History] lisinopriL [Zestril] 20 mg PO DAILY 10/18/21 [History] Aspirin 81 mg PO DAILY 02/11/23 [History] HYDROcodone/APAP 5-325MG [Guffey 5-325] 1 tab PO TID PRN 02/11/23 [History] Ibuprofen [Motrin] 800 mg PO TID PRN 02/11/23 [History] Furosemide [Lasix] 40 mg PO BID #60 tablet 02/13/23 [Rx] Spironolactone [Aldactone] 12.5 mg PO DAILY #30 tablet 02/13/23 [Rx] Follow up Appointment(s)/Referral(s): Chris Rice MD [Primary Care Provider] - 1-2 days José Manuel Ashford MD [Family Provider] - 1 Week Discharge Disposition: HOME SELF-CARE
[2023-02-13] MEDS ORDERED: FUROSEMIDE 40 MG TAB PO SCH (16:00)
== END 2023-02-13 13:49 | disposition home or self-care (01) | DRG 291 ==
LOC: EC 14:50 → 3SCARD 19:18
PROVIDERS: ADMIT Internal Medicine; ATTEND Internal Medicine
DX: I11.0 Hypertensive heart disease with heart failure (principal); I50.33 Acute on chronic diastolic (congestive) heart failure; I48.21 Permanent atrial fibrillation; I07.1 Rheumatic tricuspid insufficiency; E78.5 Hyperlipidemia, unspecified; K21.9 Gastro-esophageal reflux disease without esophagitis; M19.90 Unspecified osteoarthritis, unspecified site; Z96.653 Presence of artificial knee joint, bilateral; Z96.643 Presence of artificial hip joint, bilateral; Z79.01 Long term (current) use of anticoagulants; Z79.899 Other long term (current) drug therapy; Z79.82 Long term (current) use of aspirin; Z87.19 Personal history of other diseases of the digestive system; Z87.891 Personal history of nicotine dependence
CPT/HCPCS: 36415; 71046; 80048; 80053; 83605; 83735; 83880; 84439; 84443; 84484; 85025; 85610; 85730; 93005; 93308; 94760; 96374; 96376; 99285

== ENCOUNTER → 2023-04-09 | Outpatient (CLI) | payer MEDICARE ==
[2023-04-09 10:39] LABS: African American GFR (CKD) 61 (>60 ml/min/1.73 sqM); Anion Gap 8 mmol/L; Blood Urea Nitrogen 43 mg/dL (9-20); Carbon Dioxide 33 mmol/L (22-30); Chloride 95 mmol/L (98-107); Glucose 125 mg/dL (74-99); Non-African American GFR(CKD) 53 (>60 ml/min/1.73 sqM); Potassium 4.3 mmol/L (3.5-5.1); Sodium 136 mmol/L (137-145)
[2023-04-09 10:47] LABS: NT-Pro-B-Type Natriuretic Pept 1210 pg/mL
== END | disposition home or self-care (01) ==
LOC: LABWHC1 09:22
PROVIDERS: ATTEND Internal Medicine Cardiovascular Disease
DX: I50.32 Chronic diastolic (congestive) heart failure (principal)
CPT/HCPCS: 36415; 80048; 83880

== ENCOUNTER → 2023-07-10 | Outpatient (CLI) | payer MEDICARE ==
[2023-07-10 10:08] LABS: African American GFR (CKD) 52 (>60 ml/min/1.73 sqM); Anion Gap 14 mmol/L; Blood Urea Nitrogen 45 mg/dL (9-20); Carbon Dioxide 25 mmol/L (22-30); Chloride 96 mmol/L (98-107); Glucose 107 mg/dL (74-99); Non-African American GFR(CKD) 45 (>60 ml/min/1.73 sqM); Sodium 135 mmol/L (137-145)
[2023-07-10 10:10] LABS: Calcium 9.8 mg/dL (8.4-10.2)
[2023-07-10 10:12] LABS: NT-Pro-B-Type Natriuretic Pept 1170 pg/mL
== END | disposition home or self-care (01) ==
LOC: LABWHC1 08:20
PROVIDERS: ATTEND Internal Medicine Cardiovascular Disease
DX: Z00.00 Encounter for general adult medical examination without abnormal findings (principal); I50.32 Chronic diastolic (congestive) heart failure
CPT/HCPCS: 36415; 80048; 83880

== ENCOUNTER → 2023-10-31 | Outpatient (CLI) | payer MEDICARE ==
[2023-10-31 15:56] LABS: NT-Pro-B-Type Natriuretic Pept 1403 pg/mL (0-450)
[2023-10-31 15:59] LABS: BUN/Creat Ratio 23.57 Ratio (12.00-20.00); Calcium 8.6 mg/dL (8.7-10.3); Carbon Dioxide 25.4 mmol/L (21.6-31.8); Chloride 101 mmol/L (96-109); Glucose 118 mg/dL (70-110); Potassium 4.5 mmol/L (3.5-5.5); Sodium 139 mmol/L (135-145)
== END | disposition home or self-care (01) ==
LOC: LABWHC1 09:32
PROVIDERS: ATTEND Internal Medicine Cardiovascular Disease
DX: I50.32 Chronic diastolic (congestive) heart failure (principal)
CPT/HCPCS: 36415; 80048; 83880

== ENCOUNTER 2023-11-17 11:08 | Emergency (ER) | payer MEDICARE ==
[2023-11-17] MEDS: MORPHINE SULFATE 2 MG/ML SYRINGE IVP STA (11:36)
[2023-11-17 11:40] LABS: Basophils # (A) 0.1 k/uL (0-0.2); Basophils % (A) 0 %; Eosinophils # (A) 0.1 k/uL (0-0.7); Eosinophils % (A) 1 %; HCT 36.4 % (39.0-53.0); HGB 12.1 gm/dL (13.0-17.5); Lymphocytes % (A) 9 %; MCH 33.6 pg (25.0-35.0); MCHC 33.3 g/dL (31.0-37.0); MCV 100.9 fL (80.0-100.0); Macrocytosis Slight; Mean Platelet Volume 9.6; Monocytes # (A) 0.7 k/uL (0-1.0); Monocytes % (A) 6 %; Neutrophils # (A) 9.2 k/uL (1.3-7.7); Neutrophils % (A) 83 %; Platelet Count 234 k/uL (150-450); RBC 3.61 m/uL (4.30-5.90); RDW 14.5 % (11.5-15.5); WBC 11.1 k/uL (3.8-10.6)
[2023-11-17] MEDS: ONDANSETRON 4 MG/2 ML VIAL IVP STA ×2 (11:44→15:58)
[2023-11-17] MEDS: SODIUM CHLORIDE 0.9% 1,000 ML IV STA (11:45)
[2023-11-17 11:54] LABS: ALT 19 U/L (4-49); AST 27 U/L (17-59); African American GFR (CKD) 77 (>60 ml/min/1.73 sqM); Albumin 4.4 g/dL (3.5-5.0); Alkaline Phosphatase 87 U/L (38-126); Anion Gap 12 mmol/L; Blood Urea Nitrogen 24 mg/dL (9-20); C Reactive Protein 2.4 mg/dL (<1.0); Calcium 7.5 mg/dL (8.4-10.2); Carbon Dioxide 27 mmol/L (22-30); Chloride 101 mmol/L (98-107); Glucose 133 mg/dL (74-99); Non-African American GFR(CKD) 66 (>60 ml/min/1.73 sqM); Potassium 3.2 mmol/L (3.5-5.1); Sodium 140 mmol/L (137-145); Total Bilirubin 1.2 mg/dL (0.2-1.3); Total Protein 7.1 g/dL (6.3-8.2)
[2023-11-17] MEDS: LIDOCAINE 4% CREAM 5 GM TUBE TOPICAL ONE (11:54)
[2023-11-17] MEDS: DICLOFENAC SODIUM GEL 100 GM TUBE TOPICAL STA (11:54)
--- NOTE | 2023-11-17 12:00 | XR ---
EXAMINATION TYPE: XR chest 2V DATE OF EXAM: 11/17/2023 COMPARISON: 02/11/2023 HISTORY: Lower extremity swelling and pain. History of CHF. TECHNIQUE: Frontal and lateral views of the chest are obtained. FINDINGS: There is moderate cardiomegaly and mild pulmonary vascular congestion but no definite interstitial or airspace edema. There is no pleural effusion or pneumothorax. The osseous structures are intact. IMPRESSION: Findings consistent with mild CHF.
[2023-11-17 12:01] LABS: NT-Pro-B-Type Natriuretic Pept 2120 pg/mL
[2023-11-17] MEDS: POTASSIUM CHLORIDE ER 20 MEQ TAB.ER PO STA (12:14)
--- NOTE | 2023-11-17 12:22 | ED ---
Extremity Problem HPI - General Chief complaint: Extremity Problem,Nontraumatic Stated complaint: Urogenital Time Seen by Provider: 11/17/23 11:16 Source: patient, EMS, RN notes reviewed Mode of arrival: EMS Limitations: no limitations, physical limitation - History of Present Illness Initial comments: This is a 78-year-old male who presents to the emergency department for bilateral lower extremity pain. Patient reports a history of CHF, and states th at when he woke up this morning he had severe pain to the top of both feet and noticed associated swelling. Denies any injuries. Due to the pain he was unable to walk. Currently takes 60 mg of Lasix daily. Denies any chest pain or shortness of breath. He has not taken anything for management of his pain, however he does take Lucas at home. MD Complaint: extremity pain, extremity swelling - Related Data Home Medications Medication Instructions Recorded Confirmed Atenolol 100 mg PO DAILY 01/20/14 02/11/23 Diltiazem Cd [Cardizem CD] 300 mg PO DAILY 01/20/14 02/11/23 Omeprazole 20 mg PO DAILY 01/02/19 02/11/23 Atorvastatin [Lipitor] 20 mg PO DAILY 09/22/21 02/11/23 lisinopriL [Zestril] 20 mg PO DAILY 10/18/21 02/11/23 Aspirin 81 mg PO DAILY 02/11/23 02/11/23 HYDROcodone/APAP 5-325MG [Lucas 1 tab PO TID PRN 02/11/23 02/11/23 5-325] Ibuprofen [Motrin] 800 mg PO TID PRN 02/11/23 02/11/23 Previous Rx's Medication Instructions Recorded Apixaban [Eliquis] 5 mg PO BID #60 tab 05/29/17 Furosemide [Lasix] 40 mg PO BID #60 tablet 02/13/23 Spironolactone [Aldactone] 12.5 mg PO DAILY #30 tablet 02/13/23 Allergies Allergy/AdvReac Type Severity Reaction Status Date / Time No Known Allergies Allergy Verified 02/11/23 17:55 Review of Systems ROS Statement: Those systems with pertinent positive or pertinent negative responses have been documented in the HPI. ROS Other: All systems not noted in ROS Statement are negative. Past Medical History Past Medical History: Atrial Fibrillation, Cancer, Heart Failure, GERD/Reflux, Hyperlipidemia, Hypertension, Osteoarthritis (OA) Additional Past Medical History / Comment(s): diverticular disease, bleeding duodenal ulcer, gastritis, hemorrhoids, chronic low back pain, vertigo at times, skin cancer with removal, CHF History of Any Multi-Drug Resistant Organisms: None Reported Past Surgical History: Appendectomy, Joint Replacement, Orthopedic Surgery, Tonsillectomy Additional Past Surgical History / Comment(s): Total L/R knee arthroplasty, bilateral total hip arthroplasties, bilateral carpal tunnel releases, L foot bone removed/hardware since removed and had spacer placed, steroid back injections, colonoscopies, basal cell skin cancer removed. Past Anesthesia/Blood Transfusion Reactions: No Reported Reaction Additional Past Anesthesia/Blood Transfusion Reaction / Comment(s): . Past Psychological History: No Psychological Hx Reported Smoking Status: Former smoker Past Alcohol Use History: Daily Past Drug Use History: None Reported - Past Family History Brother(s) Family Medical History: Cancer Mother Family Medical History: Cancer Additional Family Medical History / Comment(s): Mother lived to be 90yrs old. breast cancer Father Family Medical History: No Reported History Additional Family Medical History / Comment(s): Father lived to be in his early 80's. General Exam Limitations: physical limitation General appearance: alert, in no apparent distress Head exam: Present: atraumatic, normocephalic, normal inspection Respiratory exam: Present: normal lung sounds bilaterally. Absent: respiratory distress, wheezes, rales, rhonchi, stridor Cardiovascular Exam: Present: regular rate, normal rhythm, normal heart sounds. Absent: systolic murmur, diastolic murmur, rubs, gallop, clicks Extremities exam: Present: other (Mild tenderness to the dorsal aspect of both feet. No obvious deformities or swelling. 2+ DP and PT pulses.). Absent: calf tenderness Neurological exam: Present: alert, oriented X3, CN II-XII intact Expanded Cerebellar function: Finger to Nose: Normal Sensory exam: Lower Extremity Light Touch: Normal, Lower Extremity Temperature: Normal, LE 2 Point Discrimination: Normal Motor strength exam: RUE: 5, LUE: 5, RLE: 5, LLE: 5 Psychiatric exam: Present: normal affect, normal mood Skin exam: Present: warm, dry, intact, normal color. Absent: rash Course Vital Signs 0311/17/23 11/17/23 11:11 16:01 19:19 Temperature 97.4 F L 98.5 F Pulse Rate 130 H 113 H 87 Respiratory 20 18 18 Rate Blood Pressure 111/63 104/62 103/63 O2 Sat by Pulse 94 L 97 98 Oximetry Medical Decision Making - Medical Decision Making This is a 78-year-old male who presents to the emergency department for bilateral lower extremity pain. Was pt. sent in by a medical professional or institution? @ -No Did you speak to anyone other than the patient for history? @ -No Did you review nursing and triage notes? @ -Yes, and I agree, it is accurate with regards to the patient's symptoms. Were old charts reviewed? @ -No Differential Diagnosis? @ -Differential Musculoskeletal: Muscular strain, contusion, ligament sprain, fracture, arthritis, septic arthritis, bursitis, cellulitis, muscle spasm, nerve compression, DVT, arterial occlusion, herpes zoster, electrolyte abnormality, tumor.... This is not meant to be in all inclusive list EKG interpreted by me (3pts min.)? @ -EKG interpreted by me demonstrating the following: Atrial fibrillation. Ventricular rate 114 bpm, QRS duration 91 ms, QTc 403 ms. X-rays interpreted by me (1pt min.)? @ -Chest x-ray obtained. My interpretation identifies mild pulmonary vascular congestion. X-ray of the bilateral feet obtained. My interpretation identifies no acute fractures. CT interpreted by me (1pt min.)? @ -Not obtained U/S interpreted by me (1pt. min.)? @ -Not obtained What testing was considered but not performed? (CT, X-rays, U/S, labs)? Why? @ -None What meds were considered but not given? Why? @ -None Did you discuss the management of the patient with other professionals? @ -No Did you reconcile home meds? @ -No Was smoking cessation discussed for >3mins.? @ -No Was critical care preformed (if so, how long)? @ -No Were there social determinants of health that impacted care today? How? (Homelessness, low income, unemployed, alcoholism, drug addiction, transportation, low edu. Level, literacy, decrease access to med. care, custodial, rehab)? @ -No Was there de-escalation of care discussed even if they declined? (Discuss DNR or withdrawal of care, Hospice)? @ -No What co-morbidities impacted this encounter? (DM, HTN, Smoking, COPD, CAD, Cancer, CVA, Hep., AIDS, mental health diagnosis, sleep apnea, morbid obesity)? @ -A-fib, CHF, osteoarthritis Was patient admitted / discharged? @ -Discharged. Lab work demonstrates mild leukocytosis and a mild elevation in CRP. Hypokalemia is also present at 3.2. 40 mEq of K-dur administered. BNP elevated at 2120. Troponin negative. Chest x-ray demonstrates mild pulmonary vascular congestion. Patient has no chest pain or shortness of breath. X-ray of the bilateral feet obtained demonstrating osteoarthritis without any other acute process. He was given 40 mg of IV Lasix for CHF. His pain was controlled in the emergency department. It is not entirely clear why his pain was localized just to the top of both feet and why this caused difficulty with ambulation. He had no weakness and was neurovascularly intact. Physical examination and workup did not identify any potential causes of his symptoms. He had no swelling or pitting edema on exam to suggest relation to CHF. He also had no overlying skin changes other than some irritation from his shoes, which we discussed as a possibility. Patient discharged home in stable condition and advised to have close follow-up with his primary care provider. Undiagnosed new problem with uncertain prognosis? @ -None Drug Therapy requiring intensive monitoring for toxicity (Heparin, Nitro, Insulin, Cardizem)? @ -None Were any procedures done? @ -None Diagnosis/symptom? @ -Bilateral feet pain Acute, or Chronic, or Acute on Chronic? @ -Acute Uncomplicated (without systemic symptoms) or Complicated (systemic symptoms)? @ -Uncomplicated Side effects of treatment? @ -None Exacerbation, Progression, or Severe Exacerbation] @ -Not applicable Poses a threat to life or bodily function? @ -No Return precautions reviewed in depth, the patient is instructed to return to the emergency department with any new, worsening, or concerning symptoms. Patient verbalized understanding. This case was discussed in detail with the attending ED physician, Dr. Bartholomew. Presentation, findings, and treatment plan discussed in detail as well. - Lab Data Result diagrams: 11/17/23 11:30 11/17/23 11:30 Lab Results 11/17/23 11/17/23 11/17/23 Range/Units 11:30 11:30 11:30 WBC 11.1 H (3.8-10.6) k/uL RBC 3.61 L (4.30-5.90) m/uL Hgb 12.1 L (13.0-17.5) gm/dL Hct 36.4 L (39.0-53.0) % MCV 100.9 H (80.0-100.0) fL MCH 33.6 (25.0-35.0) pg MCHC 33.3 (31.0-37.0) g/dL RDW 14.5 (11.5-15.5) % Plt Count 234 (150-450) k/uL MPV 9.6 Neutrophils % 83 % Lymphocytes % 9 % Monocytes % 6 % Eosinophils % 1 % Basophils % 0 % Neutrophils # 9.2 H (1.3-7.7) k/uL Lymphocytes # 1.0 (1.0-4.8) k/uL Monocytes # 0.7 (0-1.0) k/uL Eosinophils # 0.1 (0-0.7) k/uL Basophils # 0.1 (0-0.2) k/uL Macrocytosis Slight Sodium 140 (137-145) mmol/L Potassium 3.2 L (3.5-5.1) mmol/L Chloride 101 (98-107) mmol/L Carbon Dioxide 27 (22-30) mmol/L Anion Gap 12 mmol/L BUN 24 H (9-20) mg/dL Creatinine 1.07 (0.66-1.25) mg/dL Est GFR (CKD-EPI)AfAm 77 (>60 ml/min/1.73 sqM) Est GFR (CKD-EPI)NonAf 66 (>60 ml/min/1.73 sqM) Glucose 133 H (74-99) mg/dL Plasma Lactic Acid Fortino 1.6 (0.7-2.0) mmol/L Calcium 7.5 L (8.4-10.2) mg/dL Total Bilirubin 1.2 (0.2-1.3) mg/dL AST 27 (17-59) U/L ALT 19 (4-49) U/L Alkaline Phosphatase 87 (38-126) U/L Troponin I (0.000-0.034) ng/mL C-Reactive Protein 2.4 H (<1.0) mg/dL NT-Pro-B Natriuret Pep 2120 pg/mL Total Protein 7.1 (6.3-8.2) g/dL Albumin 4.4 (3.5-5.0) g/dL 11/17/23 Range/Units 11:30 WBC (3.8-10.6) k/uL RBC (4.30-5.90) m/uL Hgb (13.0-17.5) gm/dL Hct (39.0-53.0) % MCV (80.0-100.0) fL MCH (25.0-35.0) pg MCHC (31.0-37.0) g/dL RDW (11.5-15.5) % Plt Count (150-450) k/uL MPV Neutrophils % % Lymphocytes % % Monocytes % % Eosinophils % % Basophils % % Neutrophils # (1.3-7.7) k/uL Lymphocytes # (1.0-4.8) k/uL Monocytes # (0-1.0) k/uL Eosinophils # (0-0.7) k/uL Basophils # (0-0.2) k/uL Macrocytosis Sodium (137-145) mmol/L Potassium (3.5-5.1) mmol/L Chloride (98-107) mmol/L Carbon Dioxide (22-30) mmol/L Anion Gap mmol/L BUN (9-20) mg/dL Creatinine (0.66-1.25) mg/dL Est GFR (CKD-EPI)AfAm (>60 ml/min/1.73 sqM) Est GFR (CKD-EPI)NonAf (>60 ml/min/1.73 sqM) Glucose (74-99) mg/dL Plasma Lactic Acid Fortino (0.7-2.0) mmol/L Calcium (8.4-10.2) mg/dL Total Bilirubin (0.2-1.3) mg/dL AST (17-59) U/L ALT (4-49) U/L Alkaline Phosphatase (38-126) U/L Troponin I <0.012 (0.000-0.034) ng/mL C-Reactive Protein (<1.0) mg/dL NT-Pro-B Natriuret Pep pg/mL Total Protein (6.3-8.2) g/dL Albumin (3.5-5.0) g/dL - Radiology Data Radiology results: report reviewed, image reviewed Disposition Clinical Impression: Bilateral foot pain, CHF (congestive heart failure) Disposition: HOME SELF-CARE Instructions (If sedation given, give patient instructions): Metatarsalgia (DC) Additional Instructions: Return to the emergency department with any new, worsening, or concerning symptoms. Take Tylenol as needed for pain relief. You can continue applying the creams provided in the emergency department for additional management of your symptoms. Make sure you are wearing compression stockings and comfortable footwear that is not excessively restrictive and does not rub on your feet too much. Follow up with your primary care provider in 1-2 days. Is patient prescribed a controlled substance at d/c from ED?: No Referrals: Chris Rice MD [Primary Care Provider] - 1-2 days Time of Disposition: 19:13
[2023-11-17] MEDS: FUROSEMIDE 10 MG/ML 4 ML VIAL IV STA (12:36)
[2023-11-17] MEDS: MORPHINE SULFATE 4 MG/ML SYRINGE IVP STA (15:59)
[2023-11-17] MEDS: ACET/COD 300 MG/30 MG STARTER PACK 6 TAB BTL PO STA (16:00)
[2023-11-17 16:26] VITALS: RESP 18
--- NOTE | 2023-11-17 17:32 | XR ---
EXAMINATION TYPE: XR foot complete bilateral DATE OF EXAM: 11/17/2023 5:24 PM CLINICAL INDICATION:Male, 78 years old with history of Pain; [facility] COMPARISON: None TECHNIQUE: The bilateral feet were examined in the AP, oblique, and lateral projections. FINDINGS: Right foot- No evidence of fracture. Scattered osteoarthritic changes of the foot are appreciated, mo st pronounced involving the tarsal joints as well as the proximal interphalangeal joint of the great toe. Mild hallux valgus is appreciated. Hammertoe deformities are appreciated of the toes. Small plan tar enthesophyte is present. Vascular calcifications are identified. No significant soft tissue swell ing. Left foot-No evidence of fracture. Scattered osteoarthritic changes of the foot are appreciated, most pronounced involving the tarsal joints. Mild hallux valgus is appreciated. Hammertoe deformities are appreciated of the toes. Small plantar enthesophyte is present. Vascular calcifications are identifi ed. No significant soft tissue swelling. IMPRESSION: 1. No evidence of acute fracture. 2. Bilateral moderate osteoarthritic changes, most pronounced in the tarsal joints and right great to e proximal interphalangeal joint. 3. Mild bilateral hallux valgus. 4. Scattered arterial atherosclerotic disease.
[2023-11-17 19:45] VITALS: BP 103/63; PULSE 87; TEMP 98.5
== END 2023-11-17 19:21 | disposition home or self-care (01) ==
LOC: EC 11:08
DX: M19.072 Primary osteoarthritis, left ankle and foot (principal); M19.071 Primary osteoarthritis, right ankle and foot; I11.0 Hypertensive heart disease with heart failure; I50.9 Heart failure, unspecified; D72.829 Elevated white blood cell count, unspecified; E87.6 Hypokalemia; R79.82 Elevated C-reactive protein (CRP); R79.89 Other specified abnormal findings of blood chemistry; R09.89 Other specified symptoms and signs involving the circulatory and respiratory systems; I48.91 Unspecified atrial fibrillation; Z79.82 Long term (current) use of aspirin; Z79.899 Other long term (current) drug therapy; Z87.891 Personal history of nicotine dependence
CPT/HCPCS: 99285; 96374; 96375 ×2; 96376 ×2; 36415; 93005; 83880; 80053; 83605; 84484; 85025; 86140; 73630; 71046; J2270 ×2; J1940; J2405

== ENCOUNTER 2023-11-19 11:20 | Inpatient (IN) | payer MEDICARE ==
[2023-11-19 12:33] LABS: Basophils % (A) 0 %; Eosinophils # (A) 0.1 k/uL (0-0.7); Eosinophils % (A) 0 %; HCT 32.4 % (39.0-53.0); HGB 11.2 gm/dL (13.0-17.5); Lymphocytes # (A) 1.2 k/uL (1.0-4.8); Lymphocytes % (A) 8 %; MCH 34.8 pg (25.0-35.0); MCHC 34.4 g/dL (31.0-37.0); MCV 101.2 fL (80.0-100.0); Macrocytosis Slight; Mean Platelet Volume 8.8; Monocytes # (A) 1.1 k/uL (0-1.0); Monocytes % (A) 7 %; Neutrophils # (A) 13.5 k/uL (1.3-7.7); Neutrophils % (A) 84 %; Platelet Count 226 k/uL (150-450); RDW 13.8 % (11.5-15.5)
--- NOTE | 2023-11-19 12:49 | XR ---
EXAMINATION TYPE: XR chest 2V DATE OF EXAM: 11/19/2023 COMPARISON: 11/17/2023 TECHNIQUE: PA and lateral views submitted. HISTORY: Chest pain FINDINGS: The lungs are clear and there is no pneumothorax, pleural effusion, or focal pneumonia. Heart size mildly enlarged but no overt failure. Osseous structures demonstrate hypertrophic and degenerative ch anges of the spine. Prominence of the upper mediastinum likely related to ectatic vasculature and sta ble. Underlying COPD. Diffuse osteopenia. Arthropathy of the shoulders. IMPRESSION: 1. No acute process.
[2023-11-19 12:56] LABS: ALT 17 U/L (4-49); AST 23 U/L (17-59); African American GFR (CKD) 23 (>60 ml/min/1.73 sqM); Albumin 3.9 g/dL (3.5-5.0); Alkaline Phosphatase 71 U/L (38-126); Anion Gap 16 mmol/L; Blood Urea Nitrogen 53 mg/dL (9-20); Calcium 6.6 mg/dL (8.4-10.2); Carbon Dioxide 22 mmol/L (22-30); Chloride 97 mmol/L (98-107); Glucose 121 mg/dL (74-99); Non-African American GFR(CKD) 20 (>60 ml/min/1.73 sqM); Potassium 3.4 mmol/L (3.5-5.1); Sodium 135 mmol/L (137-145); Total Protein 6.5 g/dL (6.3-8.2)
[2023-11-19 12:58] LABS: Magnesium 0.4 mg/dL (1.6-2.3)
[2023-11-19 13:04] LABS: NT-Pro-B-Type Natriuretic Pept 3600 pg/mL
[2023-11-19 13:05] LABS: INR 1.2 (<1.2); Partial Thromboplastin Time 28.3 sec (22.0-30.0); Prothrombin Time 12.8 sec (10.0-12.5)
--- NOTE | 2023-11-19 14:15 | ED ---
General Adult HPI - General Chief complaint: Extremity Problem,Nontraumatic Stated complaint: CHF Time Seen by Provider: 11/19/23 14:00 Source: patient, RN notes reviewed, old records reviewed Mode of arrival: wheelchair Limitations: no limitations - History of Present Illness Initial comments: This is a 78-year-old male who presents to the emergency department complaining of foot pain. Patient states he has had bilateral feet pain for the last week or so he was in the hospital on Saturday but the pain has not gotten any better. Patient also states he is feeling weak 2. Patient states he has noticed a decrease in urination as well. Patient denies any abdominal pain. Patient Nuys chest pain or palpitations. Patient Nuys any difficulty breathing. Patient denies any recent fever chills or cough. Patient states his legs are more swollen than normal. - Related Data Home Medications Medication Instructions Recorded Confirmed Atenolol 100 mg PO DAILY 01/20/14 02/11/23 Diltiazem Cd [Cardizem CD] 300 mg PO DAILY 01/20/14 02/11/23 Omeprazole 20 mg PO DAILY 01/02/19 02/11/23 Atorvastatin [Lipitor] 20 mg PO DAILY 09/22/21 02/11/23 lisinopriL [Zestril] 20 mg PO DAILY 10/18/21 02/11/23 Aspirin 81 mg PO DAILY 02/11/23 02/11/23 HYDROcodone/APAP 5-325MG [[place] 1 tab PO TID PRN 02/11/23 02/11/23 5-325] Ibuprofen [Motrin] 800 mg PO TID PRN 02/11/23 02/11/23 Previous Rx's Medication Instructions Recorded Apixaban [Eliquis] 5 mg PO BID #60 tab 05/29/17 Furosemide [Lasix] 40 mg PO BID #60 tablet 02/13/23 Spironolactone [Aldactone] 12.5 mg PO DAILY #30 tablet 02/13/23 Allergies Allergy/AdvReac Type Severity Reaction Status Date / Time No Known Allergies Allergy Verified 02/11/23 17:55 Review of Systems ROS Statement: Those systems with pertinent positive or pertinent negative responses have been documented in the HPI. ROS Other: All systems not noted in ROS Statement are negative. Past Medical History Past Medical History: Atrial Fibrillation, Cancer, Heart Failure, GERD/Reflux, Hyperlipidemia, Hypertension, Osteoarthritis (OA) Additional Past Medical History / Comment(s): diverticular disease, bleeding duodenal ulcer, gastritis, hemorrhoids, chronic low back pain, vertigo at times, skin cancer with removal, CHF History of Any Multi-Drug Resistant Organisms: None Reported Past Surgical History: Appendectomy, Joint Replacement, Orthopedic Surgery, Tonsillectomy Additional Past Surgical History / Comment(s): Total L/R knee arthroplasty, bilateral total hip arthroplasties, bilateral carpal tunnel releases, L foot bone removed/hardware since removed and had spacer placed, steroid back inje ctions, colonoscopies, basal cell skin cancer removed. Past Anesthesia/Blood Transfusion Reactions: No Reported Reaction Additional Past Anesthesia/Blood Transfusion Reaction / Comment(s): . Past Psychological History: No Psychological Hx Reported Smoking Status: Former smoker Past Alcohol Use History: Daily Past Drug Use History: None Reported - Past Family History Brother(s) Family Medical History: Cancer Mother Family Medical History: Cancer Additional Family Medical History / Comment(s): Mother lived to be 90yrs old. breast cancer Father Family Medical History: No Reported History Additional Family Medical History / Comment(s): Father lived to be in his early 80's. General Exam - General Exam Comments Initial Comments: GENERAL: Patient is well-developed and well-nourished. Patient is nontoxic and well- hydrated and is in mild distress. ENT: Neck is soft and supple. No significant lymphadenopathy is noted. Oropharynx is clear. Moist mucous membranes. Neck has full range of motion without el iciting any pain. EYES: The sclera were anicteric and conjunctiva were pink and moist. Extraocular movements were intact and pupils were equal round and reactive to light. Eyelids were unremarkable. PULMONARY: Unlabored respirations. Good breath sounds bilaterally. No audible rales rhonchi or wheezing was noted. CARDIOVASCULAR: There is a regular rate and rhythm without any murmurs gallops or rubs. ABDOMEN: Soft and nontender with normal bowel sounds. SKIN: Skin is clear with no lesions or rashes and otherwise unremarkable. NEUROLOGIC: Patient is alert and oriented x3. Cranial nerves II through XII are grossly intact. Motor and sensory are also intact. Normal speech, volume and content. Symmetrical smile. MUSCULOSKELETAL: Normal extremities with adequate strength and full range of motion. 2+ edema bilaterally LYMPHATICS: No significant lymphadenopathy is noted PSYCHIATRIC: Normal psychiatric evaluation. Limitations: no limitations Course Vital Signs 11/19/23 11:50 Temperature 97.9 F Pulse Rate 94 Respiratory 20 Rate Blood Pressure 97/64 O2 Sat by Pulse 96 Oximetry Medical Decision Making - Medical Decision Making EKG is interpreted by myself EKG shows atrial fibrillation at 95 bpm QRS is 90 QT interval 357 QTc is 410. Patient's EKG shows no ST segment elevation or depression however there is T wave inversions in 3 aVF and V4 V5 V6. Was pt. sent in by a medical professional or institution (, [facility], LABOR CONCILIATOR, urgent care, hospital, or halfway...) When possible be specific @ -[No] Did you speak to anyone other than the patient for history (EMS, parent, family, police, friend...)? What history was obtained from this source @ -[No] Did you review nursing and triage notes (agree or disagree)? Why? @ -[I reviewed and agree with nursing and triage notes] Were old charts reviewed (outside hosp., previous admission, EMS record, old EKG, old radiological studies, urgent care reports/EKG's, halfway records)? Report findings @ -I reviewed prior charts and prior lab work on this patient Differential Diagnosis (chest pain, altered mental status, abdominal pain women, abdominal pain men, vaginal bleeding, weakness, fever, dyspnea, syncope, headache, dizziness, GI bleed, back pain, seizure, CVA, palpatations, mental health, musculoskeletal)? @ -Pedal edema, congestive heart failure, electrolyte abnormality, cellulitis, this is not an all-inclusive list EKG interpreted by me (3pts min.). @ -[As above] X-rays interpreted by me (1pt min.). @ -Chest x-ray shows no acute abnormality CT interpreted by me (1pt min.). @ -[None done] U/S interpreted by me (1pt. min.). @ -[None done] What testing was considered but not performed or refused? (CT, X-rays, U/S, labs)? Why? @ -[None] What meds were considered but not given or refused? Why? @ -[None] Did you discuss the management of the patient with other professionals (professionals i.e. , PA, LABOR CONCILIATOR, lab, RT, psych nurse, school social worker, simulation tech, teacher, sailing officer, gearcase assembler)? Give summary @ -I spoke with Dr. Rice and he agreed to admit the patient admit the patient wrote admitting orders Was smoking cessation discussed for >3mins.? @ -[No] Was critical care preformed (if so, how long)? @ -35 minutes Were there social determinants of health that impacted care today? How? (Homelessness, low income, unemployed, alcoholism, drug addiction, transportation, low edu. Level, literacy, decrease access to med. care, fci, r ehab)? @ -[No] Was there de-escalation of care discussed even if they declined (Discuss DNR or withdrawal of care, Hospice)? DNR status @ -[No] What co-morbidities impacted this encounter? (DM, HTN, Smoking, COPD, CAD, Cancer, CVA, ARF, Chemo, Hep., AIDS, mental health diagnosis, sleep apnea, morbid obesity)? @ -[None] Was patient admitted / discharged? Hospital course, mention meds given and rout e, prescriptions, significant lab abnormalities, going to OR and other pertinent info. @ -Patient had acute renal failure hypokalemia hypocalcemia and hypomagnesemia. Patient was given calcium chloride magnesium sulfate and K-Dur and patient was also given some IV fluids and patient was admitted to Dr. Rice and I consult nephrology Undiagnosed new problem with uncertain prognosis? @ -[No] Drug Therapy requiring intensive monitoring for toxicity (Heparin, Nitro, Insulin, Cardizem)? @ -[No] Were any procedures done? @ -[No] Diagnosis/symptom? @ -Acute renal failure Acute, or Chronic, or Acute on Chronic? @ -Acute Uncomplicated (without systemic symptoms) or Complicated (systemic symptoms)? @ -Complicated Side effects of treatment? @ -[No] Exacerbation, Progression, or Severe Exacerbation? @ -[No] Poses a threat to life or bodily function? How? (Chest pain, [place], CA, pneumonia, PE, COPD, DKA, ARF, appy, cholecystitis, CVA, Diverticulitis, Homicidal, Suicidal, threat to staff... and all critical care pts) @ -Yes this could lead to electrolyte abnormalities and possible cardiac arrhythmias and . Diagnosis/symptom? @ -Hypomagnesemia Acute, or Chronic, or Acute on Chronic? @ -Acute Uncomplicated (without systemic symptoms) or Complicated (systemic symptoms)? @ -Complicated Side effects of treatment? @ -[none] Exacerbation, Progression, or Severe Exacerbation] @ -[no] Poses a threat to life or bodily function? @ -[no] Diagnosis/symptom? @ -Hypocalcemia Acute, or Chronic, or Acute on Chronic? @ -Acute Uncomplicated (without systemic symptoms) or Complicated (systemic symptoms)? @ -Complicated Side effects of treatment? @ -[none] Exacerbation, Progression, or Severe Exacerbation] @ -[no] Poses a threat to life or bodily function? @ -[no] Diagnosis/symptom? @ -Hypokalemia Acute, or Chronic, or Acute on Chronic? @ -Acute Uncomplicated (without systemic symptoms) or Complicated (systemic symptoms)? @ -Complicated Side effects of treatment? @ -[none] Exacerbation, Progression, or Severe Exacerbation] @ -[no] Poses a threat to life or bodily function? @ -[no] Diagnosis/symptom? @ -Pedal edema Acute, or Chronic, or Acute on Chronic? @ -Acute on chronic Uncomplicated (without systemic symptoms) or Complicated (systemic symptoms)? @ -Complicated Side effects of treatment? @ -[none] Exacerbation, Progression, or Severe Exacerbation] @ -[no] Poses a threat to life or bodily function? @ -[no] - Lab Data Result diagrams: 11/19/23 11:59 11/19/23 11:59 Lab Results 11/19/23 11/19/23 11/19/23 Range/Units 11:59 11:59 11:59 WBC 16.0 H (3.8-10.6) k/uL RBC 3.20 L (4.30-5.90) m/uL Hgb 11.2 L (13.0-17.5) gm/dL Hct 32.4 L (39.0-53.0) % MCV 101.2 H (80.0-100.0) fL MCH 34.8 (25.0-35.0) pg MCHC 34.4 (31.0-37.0) g/dL RDW 13.8 (11.5-15.5) % Plt Count 226 (150-450) k/uL MPV 8.8 Neutrophils % 84 % Lymphocytes % 8 % Monocytes % 7 % Eosinophils % 0 % Basophils % 0 % Neutrophils # 13.5 H (1.3-7.7) k/uL Lymphocytes # 1.2 (1.0-4.8) k/uL Monocytes # 1.1 H (0-1.0) k/uL Eosinophils # 0.1 (0-0.7) k/uL Basophils # 0.0 (0-0.2) k/uL Macrocytosis Slight PT 12.8 H (10.0-12.5) sec INR 1.2 H (<1.2) APTT 28.3 (22.0-30.0) sec Sodium 135 L (137-145) mmol/L Potassium 3.4 L (3.5-5.1) mmol/L Chloride 97 L (98-107) mmol/L Carbon Dioxide 22 (22-30) mmol/L Anion Gap 16 mmol/L BUN 53 H (9-20) mg/dL Creatinine 2.92 H (0.66-1.25) mg/dL Est GFR (CKD-EPI)AfAm 23 (>60 ml/min/1.73 sqM) Est GFR (CKD-EPI)NonAf 20 (>60 ml/min/1.73 sqM) Glucose 121 H (74-99) mg/dL Calcium 6.6 L (8.4-10.2) mg/dL Magnesium 0.4 L* (1.6-2.3) mg/dL Total Bilirubin 1.0 (0.2-1.3) mg/dL AST 23 (17-59) U/L ALT 17 (4-49) U/L Alkaline Phosphatase 71 (38-126) U/L Troponin I (0.000-0.034) ng/mL NT-Pro-B Natriuret Pep 3600 pg/mL Total Protein 6.5 (6.3-8.2) g/dL Albumin 3.9 (3.5-5.0) g/dL 11/19/23 Range/Units 11:59 WBC (3.8-10.6) k/uL RBC (4.30-5.90) m/uL Hgb (13.0-17.5) gm/dL Hct (39.0-53.0) % MCV (80.0-100.0) fL MCH (25.0-35.0) pg MCHC (31.0-37.0) g/dL RDW (11.5-15.5) % Plt Count (150-450) k/uL MPV Neutrophils % % Lymphocytes % % Monocytes % % Eosinophils % % Basophils % % Neutrophils # (1.3-7.7) k/uL Lymphocytes # (1.0-4.8) k/uL Monocytes # (0-1.0) k/uL Eosinophils # (0-0.7) k/uL Basophils # (0-0.2) k/uL Macrocytosis PT (10.0-12.5) sec INR (<1.2) APTT (22.0-30.0) sec Sodium (137-145) mmol/L Potassium (3.5-5.1) mmol/L Chloride (98-107) mmol/L Carbon Dioxide (22-30) mmol/L Anion Gap mmol/L BUN (9-20) mg/dL Creatinine (0.66-1.25) mg/dL Est GFR (CKD-EPI)AfAm (>60 ml/min/1.73 sqM) Est GFR (CKD-EPI)NonAf (>60 ml/min/1.73 sqM) Glucose (74-99) mg/dL Calcium (8.4-10.2) mg/dL Magnesium (1.6-2.3) mg/dL Total Bilirubin (0.2-1.3) mg/dL AST (17-59) U/L ALT (4-49) U/L Alkaline Phosphatase (38-126) U/L Troponin I <0.012 (0.000-0.034) ng/mL NT-Pro-B Natriuret Pep pg/mL Total Protein (6.3-8.2) g/dL Albumin (3.5-5.0) g/dL Critical Care Time Critical Care Time: Yes Total Critical Care Time: 35 Disposition Clinical Impression: Acute renal failure, Hypokalemia, Hypomagnesemia, Hypocalcemia, Pedal edema Disposition: ADMITTED IP TO THIS [facility] Referrals: Chris Rice MD [Primary Care Provider] - 1-2 days Time of Disposition: 14:16
[2023-11-19] MEDS: POTASSIUM CHLORIDE ER 20 MEQ TAB.ER PO STA (15:23)
[2023-11-19] MEDS: CALCIUM CHLORIDE 100 MG/ML 10 ML SYRINGE IVP STA (15:24)
[2023-11-19] MEDS: MAGNESIUM SULFATE-D5W PMX 1 GM in DEXTROSE/WATER 1 100ML.BAG IVPB SCH (15:31)
[2023-11-19 19:12] LABS: Appearance,Urine Clear (Clear); Bilirubin,Urine Negative (Negative); Blood,Urine Negative (Negative); Color,Urine Yellow; Glucose,Urine (UA) Negative (Negative); Ketones,Urine Negative (Negative); Leukocyte Esterase,Urine Negative (Negative); Nitrite,Urine Negative (Negative); Protein,Urine Negative (Negative); Specific Gravity,Urine 1.015 (1.001-1.035); Urobilinogen,Urine <2.0 mg/dL (<2.0)
[2023-11-19] MEDS: MAGNESIUM OXIDE 400 MG TAB PO SCH (21:05)
--- NOTE | 2023-11-19 23:38 | P.HPIM ---
History of Present Illness H&P Date: 11/19/23 Chief Complaint: Acute kidney injury, severe edema, bilateral feet pain, con gestive heart fa HISTORY OF PRESENT ILLNESS: 78-year-old woman my office patient with multiple medical problems who is known to have history of A-fib, congestive heart failure, hypertension, hyperlipidemia, post multiple joint placement, chronic lower back pain post fracture hip, was also suffered from chronic history of anasarca and worsening edema. Patient has been seen cardiology on regular basis was in the hospital last few months ago for worsening dyspnea, shortness of breath and CHF exacerbation require more diuretics. Patient apparently was in the emergency department on Saturday. For significant signs and symptoms of bilateral feet pain along with worsening urination significant change in urine output entire workup did not show any major abnorma lity and ended up going back home. He presented to the emergency department today complaining of severe edema, bilateral feet pain, and found to have worsening kidney function with GFR quite a bit down compared to 2 days ago. With the above change patient was admitted to the hospital and started on hydration and found to have urinary retention Love catheter was inserted to watch his urine output and some of his nephrotoxic medication were held initially including diuretics and DAVID resume the rest of his medication will consult nephrology refer patient for ultrasound of the kidney. REVIEW OF SYSTEMS: CONSTITUTIONAL: Well-developed no acute respiratory distress. EYES: No icterus sclerae, no conjunctivitis. EARS, NOSE, MOUTH, THROAT, and FACE: No sore throat, lymphadenopathy, carotid bruits or deformity. RESPIRATORY: Mild shortness of breath no cough or wheezes. CARDIOVASCULAR: Positive PND orthopnea palpitation no angina. GASTROINTESTINAL: Distended abdomen with slight nausea constipation. GENITOURINARY: Decreased urine output with mild irritation burning and discomfort. INTEGUMENT/BREAST: Negative for any muscular injury with mild osteoarthritis.. HEMATOLOGIC/LYMPHATIC: Negative for bleed or purpura. MUSCULOSKELTAL: Chronic arthralgia and myalgia. NEURLOGICAL: No LOC, Sz or syncope, blurred vision dizziness or abnormality.. BEHAVIORAL/PSYCH: Negative. ENDOCRINE: Negative. PHYSICAL EXAMINATION: General Appearance: Alert, cooperative, no distress, seems slight discomfort laying in bed. Neck HEENT: Supple, no lymphadenopathy, no thyroid enlargement, no carotid bruits. Lungs: Decreased breath sound the bases positive rhonchi slight crackles in the right base. Chest Wall: Decreased expansion with deep inspiration no tenderness and no deformity was found on exam, no costochondral pain or discomfort. Heart: Irregular rate and rhythm, S1, S2 positive S3 positive systolic murmur. Back: Symmetric, no curvature, ROM normal, severe scoliosis with slight CVA tenderness with scar tissue from previous surgery. Abdomen: Soft, non-tender, bowel sounds active all four quadrants, no masses, no organomegaly. Slight distended abdomen. Mild discomfort in the right upper quadrant area. Extremities: Extremities normal, atraumatic, no cyanosis positive edema 1-2+ lower extremity worse on the right of the left side. Foot exam shows slight warmness discomfort and swelling with chronic edema. Pulses: 2+ and symmetric. Skin: Skin color, texture, tugor normal, no rashes or lesions. Neurologic: Alert oriented x3 cranial nerves II through XII intact, no motor deficit, no abnormal balance or gait. ASSESSMENT AND PLAN: _Acute kidney injury: Most likely ATN creatinine is up to 2.92 with GFR down to 20 with bun 53 significantly different than what had 2 days earlier. Continue hydration continue to avoid any nephrotoxic medication will refer patient to see nephrology. _Severe electrolyte imbalance including severe hypomagnesemia, hypokalemia: Replacement the IV was done initially we will repeat those levels in 24 hours continue oral supplement as well. The complication and side effect of both can cause severe leg cramps and feet pain and discomfort which can explain some of the symptoms. _Severe hyperuricemia: Most likely medication side effect, will add allopurinol 300 mg every other day try to reduce uric acid in the meanwhile watch carefully to make sure does not get advised patient into having severe acute gout attack. _Anasarca and edema: Was on combination of torsemide, Aldactone and Zaroxolyn, earlier was on large dose of furosemide in place of torsemide. Hold diuretics now till kidney function recovered back to normal will start on smaller size diuretics. _Acute on chronic diastolic congestive heart failure: Has been on diuretics echocardiograms up-to-date still seen cardiology regular basis. _Persistent A-fib: Will continue on Eliquis along with beta-alexy with atenolol and Cardizem. Patient is on heart monitor watch for any persistent tachycardia or symptoms. _Chronic pain syndrome: Has been on hydrocodone 5/325 mg 3 times a day along with muscle relaxer. _Hypertension: With urgent symptoms sometimes remain on Zestril 20 mg daily, amlodipine 10 mg daily, torsemide or furosemide along with diltiazem CD. _Hyperlipidemia: Continue atorvastatin 20 mg a day. _Urinary retention: After starting hydration the patient required to walk to the emergency room could not void Love catheter was inserted and drained over 400 cc. _Previous history of GI bleed with no recurrent bleed at this point remain on omeprazole 20 mg daily. _Hypertension: Continue Zestril 20 mg a day, Norvasc 10 mg daily, diltiazem CD3 100 mg a day and continue low-salt diet and modify lifestyle. _GI prophylaxis: Continue patient on omeprazole. DVT prophylaxis: Early mobilization along with knee-high ISELA hose. CODE STATUS: Full code. Admit patient to the inpatient service for more than 2 night stay. Past Medical History Past Medical History: Atrial Fibrillation, Cancer, Heart Failure, GERD/Reflux, Hyperlipidemia, Hypertension, Osteoarthritis (OA) Additional Past Medical History / Comment(s): diverticular disease, bleeding duodenal ulcer, gastritis, hemorrhoids, chronic low back pain, vertigo at times, skin cancer with removal, CHF History of Any Multi-Drug Resistant Organisms: None Reported Past Surgical History: Appendectomy, Joint Replacement, Orthopedic Surgery, Tonsillectomy Additional Past Surgical History / Comment(s): Total L/R knee arthroplasty, bila teral total hip arthroplasties, bilateral carpal tunnel releases, L foot bone removed/hardware since removed and had spacer placed, steroid back injections, colonoscopies, basal cell skin cancer removed. Past Anesthesia/Blood Transfusion Reactions: No Reported Reaction Additional Past Anesthesia/Blood Transfusion Reaction / Comment(s): . Past Psychological History: No Psychological Hx Reported Smoking Status: Former smoker Past Alcohol Use History: Daily Past Drug Use History: None Reported - Past Family History Brother(s) Family Medical History: Cancer Mother Family Medical History: Cancer Additional Family Medical History / Comment(s): Mother lived to be 90yrs old. breast cancer Father Family Medical History: No Reported History Additional Family Medical History / Comment(s): Father lived to be in his early 80's. Medications and Allergies Home Medications Medication Instructions Recorded Confirmed Type Atenolol 100 mg PO DAILY 01/20/14 11/19/23 History Diltiazem Cd [Cardizem CD] 300 mg PO DAILY 01/20/14 11/19/23 History Omeprazole 20 mg PO DAILY 01/02/19 11/19/23 History Atorvastatin [Lipitor] 20 mg PO DAILY 09/22/21 11/19/23 History lisinopriL [Zestril] 20 mg PO DAILY 10/18/21 11/19/23 History HYDROcodone/APAP 5-325MG [[place] 1 tab PO TID PRN 02/11/23 11/19/23 History 5-325] Ibuprofen [Motrin] 800 mg PO TID PRN 02/11/23 11/19/23 History Apixaban [Eliquis] 5 mg PO DIRECTED 11/19/23 11/19/23 History Furosemide [Lasix] 20 mg PO DAILY 11/19/23 11/19/23 History Furosemide [Lasix] 40 mg PO DAILY 11/19/23 11/19/23 History Loratadine [Claritin] 10 mg PO DAILY 11/19/23 11/19/23 History Magnesium Oxide [Magox 400] 400 mg PO BID 11/19/23 11/19/23 History Sildenafil Citrate [Sildenafil] 20 mg PO DAILY PRN 11/19/23 11/19/23 History Torsemide [Soaanz] 20 mg PO DAILY 11/19/23 11/19/23 History amLODIPine [Norvasc] 10 mg PO DAILY 11/19/23 11/19/23 History metOLazone [Zaroxolyn] 5 mg PO DAILY 11/19/23 11/19/23 History Allergies Allergy/AdvReac Type Severity Reaction Status Date / Time No Known Allergies Allergy Verified 11/19/23 15:51 Physical Exam Vitals: Vital Signs Temp Pulse Resp BP Pulse Ox 11/19/23 14:58 98.1 F 94 20 115/65 97 11/19/23 11:50 97.9 F 94 20 97/64 96 Intake and Output 11/19/23 11/19/23 11/19/23 06:59 14:59 22:59 Other: Weight 99.79 kg Results CBC & Chem 7: 11/19/23 11:59 11/19/23 23:25 Labs: Abnormal Lab Results - Last 24 Hours (Table) 11/19/23 11/19/23 11/19/23 Range/Units 11:59 11:59 11:59 WBC 16.0 H (3.8-10.6) k/uL RBC 3.20 L (4.30-5.90) m/uL Hgb 11.2 L (13.0-17.5) gm/dL Hct 32.4 L (39.0-53.0) % MCV 101.2 H (80.0-100.0) fL Neutrophils # 13.5 H (1.3-7.7) k/uL Monocytes # 1.1 H (0-1.0) k/uL PT 12.8 H (10.0-12.5) sec INR 1.2 H (<1.2) Sodium 135 L (137-145) mmol/L Potassium 3.4 L (3.5-5.1) mmol/L Chloride 97 L (98-107) mmol/L BUN 53 H (9-20) mg/dL Creatinine 2.92 H (0.66-1.25) mg/dL Glucose 121 H (74-99) mg/dL Calcium 6.6 L (8.4-10.2) mg/dL Magnesium 0.4 L* (1.6-2.3) mg/dL
[2023-11-20 00:21] LABS: ALT 18 U/L (4-49); AST 26 U/L (17-59); African American GFR (CKD) 35 (>60 ml/min/1.73 sqM); Albumin 3.5 g/dL (3.5-5.0); Alkaline Phosphatase 89 U/L (38-126); Anion Gap 14 mmol/L; Blood Urea Nitrogen 53 mg/dL (9-20); Calcium 7.3 mg/dL (8.4-10.2); Carbon Dioxide 22 mmol/L (22-30); Chloride 97 mmol/L (98-107); Glucose 115 mg/dL (74-99); Magnesium 1.3 mg/dL (1.6-2.3); Non-African American GFR(CKD) 30 (>60 ml/min/1.73 sqM); Potassium 3.2 mmol/L (3.5-5.1); Sodium 133 mmol/L (137-145); Total Bilirubin 1.1 mg/dL (0.2-1.3); Total Protein 6.2 g/dL (6.3-8.2)
[2023-11-20] MEDS: POTASSIUM CHLORIDE ER 20 MEQ TAB.ER PO STA ×2 (00:38→12:22)
[2023-11-20] MEDS: MAGNESIUM SULFATE-D5W PMX 1 GM in DEXTROSE/WATER 1 100ML.BAG IVPB SCH ×2 (00:43→12:25)
[2023-11-20] MEDS: PANTOPRAZOLE 40 MG TABLET PO SCH (06:22)
[2023-11-20] MEDS: LORATADINE 10 MG TAB PO SCH (08:22)
[2023-11-20] MEDS: DILTIAZEM CD 300 MG CAP.ER.24H PO SCH (08:22)
[2023-11-20] MEDS: ATORVASTATIN 20 MG TAB PO SCH (08:22)
[2023-11-20] MEDS: atenoloL 50 MG TAB PO SCH (08:22)
[2023-11-20] MEDS: HYDROcodone/APAP 5-325MG 1 EACH TAB PO PRN (08:23)
[2023-11-20] MEDS: TAMSULOSIN 0.4 MG CAP.ER.24H PO SCH (08:24)
[2023-11-20 09:39] LABS: HCT 30.7 % (39.0-53.0); HGB 10.3 gm/dL (13.0-17.5); MCH 33.9 pg (25.0-35.0); MCHC 33.6 g/dL (31.0-37.0); Macrocytosis Slight; Mean Platelet Volume 9.2; Platelet Count 185 k/uL (150-450); RBC 3.04 m/uL (4.30-5.90); RDW 13.8 % (11.5-15.5); WBC 10.4 k/uL (3.8-10.6)
[2023-11-20 09:54] LABS: ALT 25 U/L (4-49); AST 34 U/L (17-59); African American GFR (CKD) 68 (>60 ml/min/1.73 sqM); Albumin 3.2 g/dL (3.5-5.0); Alkaline Phosphatase 85 U/L (38-126); Anion Gap 11 mmol/L; Blood Urea Nitrogen 45 mg/dL (9-20); Calcium 7.3 mg/dL (8.4-10.2); Carbon Dioxide 21 mmol/L (22-30); Chloride 99 mmol/L (98-107); Glucose 176 mg/dL (74-99); Magnesium 1.4 mg/dL (1.6-2.3); Non-African American GFR(CKD) 58 (>60 ml/min/1.73 sqM); Potassium 3.2 mmol/L (3.5-5.1); Sodium 131 mmol/L (137-145); Total Bilirubin 1.5 mg/dL (0.2-1.3); Total Protein 5.8 g/dL (6.3-8.2)
--- NOTE | 2023-11-20 11:00 | P.NPCON ---
History of Present Illness - Reason for Consult acute renal failure - History of Present Illness Reason for consultation: Acute kidney injury History of present illness: Patient is a 78-year-old male seen in renal consultation for acute kidney injury. Patient's creatinine on admission was 2.92 and is down to 1.18 today. Patient states he came to the hospital due to foot pain on Saturday and was subsequently discharged. Patient states the foot pain has been going on for over a month now. He has been voiding. He did notice that urine output was low over the last few days. Patient's blood pressure was in the systolic 90s and diastolic 60s on admission. It was 108/59 this morning. Patient does admit to taking Lasix, metolazone as well as lisinopril at home. Patient states he was also taking Motrin as 800 mg at least twice daily due to pain. He denies fever or chills. No vomiting or diarrhea. Denies family history of renal disease. Denies history of diabetes. Denies history of coronary artery disease. Vital signs are stable. General: No acute distress. HEENT: Head exam is unremarkable. LUNGS: No audible rhonchi or wheezes. HEART: Rate and Rhythm are regular. ABDOMEN: Nontender. EXTREMITITES: No edema. Chronic changes noted. Past Medical History Past Medical History: Atrial Fibrillation, Cancer, Heart Failure, GERD/Reflux, Hyperlipidemia, Hypertension, Osteoarthritis (OA) Additional Past Medical History / Comment(s): diverticular disease, bleeding duodenal ulcer, gastritis, hemorrhoids, chronic low back pain, vertigo at times, skin cancer with removal, CHF History of Any Multi-Drug Resistant Organisms: None Reported Past Surgical History: Appendectomy, Joint Replacement, Orthopedic Surgery, Tonsillectomy Additional Past Surgical History / Comment(s): Total L/R knee arthroplasty, bilateral total hip arthroplasties, bilateral carpal tunnel releases, L foot bone removed/hardware since removed and had spacer placed, steroid back injections, colonoscopies, basal cell skin cancer removed. Past Anesthesia/Blood Transfusion Reactions: No Reported Reaction Additional Past Anesthesia/Blood Transfusion Reaction / Comment(s): . Past Psychological History: No Psychological Hx Reported Smoking Status: Former smoker Past Alcohol Use History: Daily Past Drug Use History: None Reported - Past Family History Brother(s) Family Medical History: Cancer Mother Family Medical History: Cancer Additional Family Medical History / Comment(s): Mother lived to be 90yrs old. breast cancer Father Family Medical History: No Reported History Additional Family Medical History / Comment(s): Father lived to be in his early 80's. Medications and Allergies Home Medications Medication Instructions Recorded Confirmed Type Atenolol 100 mg PO DAILY 01/20/14 11/19/23 History Diltiazem Cd [Cardizem CD] 300 mg PO DAILY 01/20/14 11/19/23 History Omeprazole 20 mg PO DAILY 01/02/19 11/19/23 History Atorvastatin [Lipitor] 20 mg PO DAILY 09/22/21 11/19/23 History lisinopriL [Zestril] 20 mg PO DAILY 10/18/21 11/19/23 History HYDROcodone/APAP 5-325MG [[place] 1 tab PO TID PRN 02/11/23 11/19/23 History 5-325] Ibuprofen [Motrin] 800 mg PO TID PRN 02/11/23 11/19/23 History Apixaban [Eliquis] 5 mg PO DIRECTED 11/19/23 11/19/23 History Furosemide [Lasix] 20 mg PO DAILY 11/19/23 11/19/23 History Furosemide [Lasix] 40 mg PO DAILY 11/19/23 11/19/23 History Loratadine [Claritin] 10 mg PO DAILY 11/19/23 11/19/23 History Magnesium Oxide [Magox 400] 400 mg PO BID 11/19/23 11/19/23 History Sildenafil Citrate [Sildenafil] 20 mg PO DAILY PRN 11/19/23 11/19/23 History Torsemide [Soaanz] 20 mg PO DAILY 11/19/23 11/19/23 History amLODIPine [Norvasc] 10 mg PO DAILY 11/19/23 11/19/23 History metOLazone [Zaroxolyn] 5 mg PO DAILY 11/19/23 11/19/23 History Allergies Allergy/AdvReac Type Severity Reaction Status Date / Time No Known Allergies Allergy Verified 11/19/23 15:51 Physical Exam Vitals: Vital Signs Temp Pulse Pulse Resp BP BP Pulse Ox 11/20/23 08:00 98.5 F 103 H 16 105/59 95 11/20/23 04:00 98 F 86 18 108/66 97 11/20/23 02:00 88 20 11/20/23 00:00 88 20 97/65 96 11/19/23 20:12 99.1 F 95 16 100/61 96 11/19/23 16:00 110 H 18 95/62 95 11/19/23 14:58 98.1 F 94 20 115/65 97 11/19/23 11:50 97.9 F 94 20 97/64 96 Intake and Output 11/19/23 11/20/23 11/20/23 22:59 06:59 14:59 Intake Total 240 Output Total 600 150 Balance -600 90 Intake: Oral 240 Output: Urine 600 150 Uretheral (Love) 600 Other: Voiding Method Indwelling Catheter Weight 99.79 kg Results - Lab Results Most recent lab results Calcium 7.3 mg/dL (8.4-10.2) L 11/20/23 08:54 Magnesium 1.4 mg/dL (1.6-2.3) L 11/20/23 08:54 11/20/23 08:54 11/20/23 08:54 Assessment and Plan Plan: Assessment: 1. Acute kidney injury secon hypokalemia [place] to vasomotor nephropathy secondary to hypotension. Also concern for urinary retention. Creatinine 2.92 on admission and down to 1.18 today. UA benign. Baseline creatinine near 1. 2. From diuretics and hypomagnesemia. 3. Hypomagnesemia from diuretics. 4. Hyponatremia from poor intake and thiazide diuretic use. 5. Chronic diastolic CHF. 6. Urinary retention. Currently has Love catheter. On Flomax. Plan: Encouraged oral intake. 1500 cc free water restriction. Add gentle IV hydration with normal saline at 50 cc an hour. Continue to hold diuretics. Started on Aldactone by cardiology today. Replace potassium and magnesium. Check renal ultrasound. Avoid nephrotoxins. Continue to monitor renal function and urine output. Thank you for the consultation. I will continue to follow the patient with you during his hospital stay.
--- NOTE | 2023-11-20 11:49 | P.CRDCN ---
History of Present Illness Consult date: 11/20/23 History of present illness: This is a 78-year-old male patient of Dr. Ashford with a past medical history significant for permanent atrial fibrillation on eliquis, hypertension, chronic diastolic heart failure, chronic kidney disease, mild aortic valve stenosis and GERD. We have been asked to see the patient in consultation for pedal edema. The patient presented to the hospital with a chief complaint of swelling in the lower extremities. He denies having any chest pain, no shortness of breath. Patient was admitted to the cardiac stepdown unit and diuretics, lisinopril, torsemide, metolazone and amlodipine have all been on hold. Patient states the lower extremity edema is improved. Patient has required Love catheter placement for urinary retention. Replacement of magnesium and potassium in progress and patient is been started on IV fluids per nephrology. EKG reveals A. fib with heart rate 95 Chest xray no acute findings. Laboratory data: WBC 16, hemoglobin 11.2, platelet count 226. INR 1.2. Sodium 133, potassium 3.2, chloride 97, CO2 22, BUN 53 and creatinine 2.03 down from 2.92 of yesterday. Troponin negative x 1. Liver function test are normal. proBNP 3600. Urinalysis was negative. Initial magnesium 0.4 followed by 1.3. Current home cardiac medications include amlodipine 10 mg daily, Eliquis 5 mg twice a day, atenolol 100 mg daily, atorvastatin 20 mg daily, Cardizem CD 300 mg daily, Lasix 40 mg in the morning and 20 mg in the afternoon, lisinopril 20 mg daily, magnesium oxide 400 mg twice daily, metolazone 5 mg daily, torsemide 20 mg daily Echocardiogram completed 02/12/2023 reveals EF of 55 to 60%, mild TR. Lexiscan Cardiolite stress test performed on 10/11/2022 revealed negative by EKG criteria. Probably normal myocardial perfusion and function. REVIEW OF SYSTEMS: At the time of evaluation Constitutional: No fever, no chills, no night sweats. No weight change. No weakness, fatigue or lethargy. No daytime sleepiness. EENT: No headache. No loss of vision. no dizziness. Lungs: no shortness of breath, no cough, no sputum production. No wheezing. Cardiovascular: No chest pain, mild lower extremity edema. No palpitations. No paroxysmal nocturnal dyspnea. No orthopnea. No lightheadedness or dizziness. No syncopal episodes. Abdominal: No abdominal pain. No nausea, vomiting. No diarrhea. No constipation. No bloody or tarry stools. + loss of appetite. Genitourinary: No dysuria, increased frequency, urgency. + urinary retention. Musculoskeletal: No myalgias. No muscle weakness, no gait dysfunction. Integumentary: No rash or pruritus. No unusual bruising. Neurologic: No aphasia. No facial droop. No change in mentation. No head injury. No headache. Psychiatric: No depression. No anxiety. PHYSICAL EXAM: Gen: This is a 78-year-old male. He is resting and appears to be comfortable, no acute distress noted. HEENT: Head is atraumatic, normocephalic. Pupils equal, round. Sclerae is anicteric. NECK: Supple. No JVD. No lymphadenopathy. No thyromegaly. LUNGS: Good air entry. No intercostal retractions. HEART: Irregular rate and rhythm. No murmur. ABDOMEN: Soft. Bowel sounds are present. No masses. No tenderness. EXTREMITIES: Trace pedal edema. No calf tenderness. NEUROLOGICAL: Patient is awake, alert and oriented x3. ASSESSMENT: Acute kidney injury Lower extremity edema due to local causes not reflective of heart failure/cardiac etiology No pulmonary hypertension Chronic diastolic heart failure Persistent permanent atrial fibrillation Hypertension GERD Former nicotine dependence PLAN: Continue patient's home cardiac medications with the following changes Transition atenolol to metoprolol tartrate 50 mg 3 times daily Add Aldactone 25 mg daily Replace potassium Stop Cardizem CD Further recommendations pending patient course Nurse practitioner note has been reviewed by physician. Signing provider agrees with the documented findings, assessment, and plan of care. Past Medical History Past Medical History: Atrial Fibrillation, Cancer, Heart Failure, GERD/Reflux, Hyperlipidemia, Hypertension, Osteoarthritis (OA) Additional Past Medical History / Comment(s): diverticular disease, bleeding duodenal ulcer, gastritis, hemorrhoids, chronic low back pain, vertigo at times, skin cancer with removal, CHF History of Any Multi-Drug Resistant Organisms: None Reported Past Surgical History: Appendectomy, Joint Replacement, Orthopedic Surgery, Tonsillectomy Additional Past Surgical History / Comment(s): Total L/R knee arthroplasty, bilateral total hip arthroplasties, bilateral carpal tunnel releases, L foot bone removed/hardware since removed and had spacer placed, steroid back injections, colonoscopies, basal cell skin cancer removed. Past Anesthesia/Blood Transfusion Reactions: No Reported Reaction Additional Past Anesthesia/Blood Transfusion Reaction / Comment(s): . Past Psychological History: No Psychological Hx Reported Smoking Status: Former smoker Past Alcohol Use History: Daily Past Drug Use History: None Reported - Past Family History Brother(s) Family Medical History: Cancer Mother Family Medical History: Cancer Additional Family Medical History / Comment(s): Mother lived to be 90yrs old. breast cancer Father Family Medical History: No Reported History Additional Family Medical History / Comment(s): Father lived to be in his early 80's. Medications and Allergies Home Medications Medication Instructions Recorded Confirmed Type Atenolol 100 mg PO DAILY 01/20/14 11/19/23 History Diltiazem Cd [Cardizem CD] 300 mg PO DAILY 01/20/14 11/19/23 History Omeprazole 20 mg PO DAILY 01/02/19 11/19/23 History Atorvastatin [Lipitor] 20 mg PO DAILY 09/22/21 11/19/23 History lisinopriL [Zestril] 20 mg PO DAILY 10/18/21 11/19/23 History HYDROcodone/APAP 5-325MG [[place] 1 tab PO TID PRN 02/11/23 11/19/23 History 5-325] Ibuprofen [Motrin] 800 mg PO TID PRN 02/11/23 11/19/23 History Apixaban [Eliquis] 5 mg PO DIRECTED 11/19/23 11/19/23 History Furosemide [Lasix] 20 mg PO DAILY 11/19/23 11/19/23 History Furosemide [Lasix] 40 mg PO DAILY 11/19/23 11/19/23 History Loratadine [Claritin] 10 mg PO DAILY 11/19/23 11/19/23 History Magnesium Oxide [Magox 400] 400 mg PO BID 11/19/23 11/19/23 History Sildenafil Citrate [Sildenafil] 20 mg PO DAILY PRN 11/19/23 11/19/23 History Torsemide [Soaanz] 20 mg PO DAILY 11/19/23 11/19/23 History amLODIPine [Norvasc] 10 mg PO DAILY 11/19/23 11/19/23 History metOLazone [Zaroxolyn] 5 mg PO DAILY 11/19/23 11/19/23 History Allergies Allergy/AdvReac Type Severity Reaction Status Date / Time No Known Allergies Allergy Verified 11/19/23 15:51 Physical Exam Vitals: Vital Signs Temp Pulse Pulse Resp BP BP Pulse Ox 11/20/23 08:00 98.5 F 103 H 16 105/59 95 11/20/23 04:00 98 F 86 18 108/66 97 11/20/23 02:00 88 20 11/20/23 00:00 88 20 97/65 96 11/19/23 20:12 99.1 F 95 16 100/61 96 11/19/23 16:00 110 H 18 95/62 95 11/19/23 14:58 98.1 F 94 20 115/65 97 11/19/23 11:50 97.9 F 94 20 97/64 96 Intake and Output 11/19/23 11/20/23 11/20/23 22:59 06:59 14:59 Intake Total 240 Output Total 600 150 Balance -600 90 Intake: Oral 240 Output: Urine 600 150 Uretheral (Love) 600 Other: Voiding Method Indwelling Catheter Weight 99.79 kg Results 11/20/23 08:54 11/20/23 08:54 Cardiac Enzymes 11/19/23 11/19/23 11/19/23 Range/Units 11:59 11:59 23:25 AST 23 26 (17-59) U/L Troponin I <0.012 (0.000-0.034) ng/mL Coagulation 11/19/23 Range/Units 11:59 PT 12.8 H (10.0-12.5) sec APTT 28.3 (22.0-30.0) sec CBC 11/19/23 Range/Units 11:59 WBC 16.0 H (3.8-10.6) k/uL RBC 3.20 L (4.30-5.90) m/uL Hgb 11.2 L (13.0-17.5) gm/dL Hct 32.4 L (39.0-53.0) % Plt Count 226 (150-450) k/uL Comprehensive Metabolic Panel 11/19/23 11/19/23 Range/Units 11:59 23:25 Sodium 135 L 133 L (137-145) mmol/L Potassium 3.4 L 3.2 L (3.5-5.1) mmol/L Chloride 97 L 97 L (98-107) mmol/L Carbon Dioxide 22 22 (22-30) mmol/L BUN 53 H 53 H (9-20) mg/dL Creatinine 2.92 H 2.03 H (0.66-1.25) mg/dL Glucose 121 H 115 H (74-99) mg/dL Calcium 6.6 L 7.3 L (8.4-10.2) mg/dL AST 23 26 (17-59) U/L ALT 17 18 (4-49) U/L Alkaline Phosphatase 71 89 (38-126) U/L Total Protein 6.5 6.2 L (6.3-8.2) g/dL Albumin 3.9 3.5 (3.5-5.0) g/dL Current Medications Generic Name Dose Route Start Last Admin Trade Name Freq PRN Reason Stop Dose Admin Hydrocodone Bitart/Acetaminophen 1 each 11/19/23 18:00 11/20/23 08:23 Hydrocodone/Apap 5-325mg 1 Each Tab PO 1 each TID PRN Administration Pain Allopurinol 200 mg 11/20/23 09:00 Allopurinol 100 Mg Tab PO DAILY [facility] Apixaban 5 mg 11/22/23 21:00 Apixaban 5 Mg Tab PO BID [facility] Protocol Atenolol 100 mg 11/20/23 09:00 11/20/23 08:22 Atenolol 50 Mg Tab PO 100 mg DAILY [facility] Administration Atorvastatin Calcium 20 mg 11/20/23 09:00 11/20/23 08:22 Atorvastatin 20 Mg Tab PO 20 mg DAILY [facility] Administration Diltiazem HCl 300 mg 11/20/23 09:00 11/20/23 08:22 Diltiazem Cd 300 Mg Cap.Er.24h PO 300 mg DAILY [facility] Administration Loratadine 10 mg 11/20/23 09:00 11/20/23 08:22 Loratadine 10 Mg Tab PO 10 mg DAILY [facility] Administration Magnesium Oxide 400 mg 11/19/23 21:00 11/20/23 08:22 Magnesium Oxide 400 Mg Tab PO 400 mg BID [facility] Administration Pantoprazole Sodium 40 mg 11/20/23 07:30 11/20/23 06:22 Pantoprazole 40 Mg Tablet PO 40 mg [id number] [facility] Administration Tamsulosin HCl 0.4 mg 11/20/23 08:30 11/20/23 08:24 Tamsulosin 0.4 Mg Cap.Er.24h PO 0.4 mg [id number] [facility] Administration Intake and Output 11/19/23 11/20/23 11/20/23 22:59 06:59 14:59 Intake Total 240 Output Total 600 150 Balance -600 90 Intake: Oral 240 Output: Urine 600 150 Uretheral (Love) 600 Other: Voiding Method Indwelling Catheter Weight 99.79 kg 11/19/23 11:59 11/19/23 23:25
[2023-11-20] MEDS: allopurinoL 100 MG TAB PO SCH (12:22)
[2023-11-20] MEDS: SPIRONOLACTONE 25 MG TAB PO SCH (12:23)
[2023-11-20] MEDS: SODIUM CHLORIDE 0.9% 1,000 ML IV SCH (12:23)
[2023-11-20] MEDS: METOPROLOL TARTRATE 50 MG TAB PO SCH (12:23)
[2023-11-20] MEDS: SODIUM CHLORIDE 0.9% 500 ML 500 ML IV ONE (12:30)
--- NOTE | 2023-11-20 14:14 | US ---
EXAMINATION TYPE: US kidneys/renal and bladder DATE OF EXAM: 11/20/2023 COMPARISON: NONE CLINICAL INDICATION: Male, 78 years old with history of clarisa; CLARISA EXAM MEASUREMENTS: Right Kidney: 13.6 x 6.4 x5.8 cm Left Kidney: 12.1 x 6.0 x 6.1 cm Right Kidney: Enlarged. Partially septated anechoic area seen upper pole: 3.7 x 2.8 x 2.7 cm. Left Kidney: Anechoic area compatible with simple cyst seen upper pole: 1.9 x 1.4 x 1.5 cm. Bladder: *Catheter seen within. Urinary bladder is decompressed Bilateral Jets seen: No IMPRESSION: 1. There may be a septated cyst upper pole right kidney. 2. Simple cyst left kidney
[2023-11-20] MEDS: MIDODRINE 5 MG TAB PO SCH (15:42)
[2023-11-20] MEDS: HYDROcodone/APAP 5-325MG 1 EACH TAB PO STA (21:14)
[2023-11-21] MEDS: BACLOFEN 10 MG TAB PO PRN (01:44)
--- NOTE | 2023-11-21 05:21 | P.PN ---
Subjective Progress Note Date: 11/20/23 HISTORY OF PRESENT ILLNESS: 78-year-old woman my office patient with multiple medical problems who is known to have history of A-fib, congestive heart failure, hypertension, hyperl ipidemia, post multiple joint placement, chronic lower back pain post fracture hip, was also suffered from chronic history of anasarca and worsening edema. Patient has been seen cardiology on regular basis was in the hospital last few months ago for worsening dyspnea, shortness of breath and CHF exacerbation require more diuretics. Patient apparently was in the emergency department on Saturday. For significant signs and symptoms of bilateral feet pain along with worsening urination sig nificant change in urine output entire workup did not show any major abnormality and ended up going back home. He presented to the emergency department today complaining of severe edema, bilateral feet pain, and found to have worsening kidney function with GFR quite a bit down compared to 2 days ago. With the above change patient was admitted to the hospital and started on hydration and found to have urinary retention Love catheter was inserted to watch his urine output and some of his nephrotoxic medication were held initially including diuretics and DAVID resume the rest of his medication will consult nephrology refer patient for ultrasound of the kidney. 11/20/2023: Patient repeat lab had improved significantly with creatinine at 2.03 then 1. 1 GFR is up to 58, magnesium climb up to 1.4 and still doing magnesium placement therapy. Patient was diagnosed with severe hyperuricemia and started on allopurinol repeat uric acid 5 days, also mild hyponatremia with a hydration remain the same. He was seen nephrology agree with the current management plan from holding diuretic encourage oral intake and restrict 15 cc 1500 cc of free water start Aldactone initially continue replaced magnesium. Renal ultrasound will perform and may be a cyst in the upper pole of right kidney with simple cyst in the left kidney with no sign of obstruction. REVIEW OF SYSTEMS: CONSTITUTIONAL: Well-developed no acute respiratory distress. EYES: No icterus sclerae, no conjunctivitis. EARS, NOSE, MOUTH, THROAT, and FACE: No sore throat, lymphadenopathy, carotid bruits or deformity. RESPIRATORY: Mild shortness of breath no cough or wheezes. CARDIOVASCULAR: Positive PND orthopnea palpitation no angina. GASTROINTESTINAL: Distended abdomen with slight nausea constipation. GENITOURINARY: Decreased urine output with mild irritation burning and discomfort. INTEGUMENT/BREAST: Negative for any muscular injury with mild osteoarthritis.. HEMATOLOGIC/LYMPHATIC: Negative for bleed or purpura. MUSCULOSKELTAL: Chronic arthralgia and myalgia. NEURLOGICAL: No LOC, Sz or syncope, blurred vision dizziness or abnormality.. BEHAVIORAL/PSYCH: Negative. ENDOCRINE: Negative. PHYSICAL EXAMINATION: General Appearance: Alert, cooperative, no distress, seems slight discomfort laying in bed. Neck HEENT: Supple, no lymphadenopathy, no thyroid enlargement, no carotid bruits. Lungs: Decreased breath sound the bases positive rhonchi slight crackles in the right base. Chest Wall: Decreased expansion with deep inspiration no tenderness and no deformity was found on exam, no costochondral pain or discomfort. Heart: Irregular rate and rhythm, S1, S2 positive S3 positive systolic murmur. Back: Symmetric, no curvature, ROM normal, severe scoliosis with slight CVA tenderness with scar tissue from previous surgery. Abdomen: Soft, non-tender, bowel sounds active all four quadrants, no masses, no organomegaly. Slight distended abdomen. Mild discomfort in the right upper quadrant area. Extremities: Extremities normal, atraumatic, no cyanosis positive edema 1-2+ lower extremity worse on the right of the left side. Foot exam shows slight warmness discomfort and swelling with chronic edema. Pulses: 2+ and symmetric. Skin: Skin color, texture, tugor normal, no rashes or lesions. Neurologic: Alert oriented x3 cranial nerves II through XII intact, no motor deficit, no abnormal balance or gait. ASSESSMENT AND PLAN: _Acute kidney injury: Again continue holding any nephrotoxic agent kidney function is much better with hydration continue current management for now. _Severe electrolyte imbalance including severe hypomagnesemia, hypokalemia: Continue potassium magnesium replacement. Patient back on spironolactone which will help some. _Severe hyperuricemia: Most likely medication side effect, will add allopurinol 300 mg every other day try to reduce uric acid in the meanwhile watch carefully to make sure does not get advised patient into having severe acute gout attack. Recheck uric acid in 5 days. _Anasarca and edema: Start initially spironolactone will add Demadex eventually in 2 to 3 days. _Acute on chronic diastolic congestive heart failure: Has been on diuretics echocardiograms up-to-date still seen cardiology regular basis. _Persistent A-fib: Will continue on Eliquis along with beta-alexy with atenolol and Cardizem. Patient is on heart monitor watch for any persistent tachycardia or symptoms. _Chronic pain syndrome: Has been on hydrocodone 5/325 mg 3 times a day along with muscle relaxer. _Hypertension: With urgent symptoms sometimes remain on Zestril 20 mg daily, amlodipine 10 mg daily, torsemide or furosemide along with diltiazem CD. _Hyperlipidemia: Continue atorvastatin 20 mg a day. _Urinary retention: After starting hydration the patient could not void Love catheter was inserted and drained over 400 cc. Will continue Love catheter for 24 hours. _Previous history of GI bleed with no recurrent bleed at this point remain on omeprazole 20 mg daily. _Hypertension: Hold DAVID inhibitor and due to calcium channel alexy will start Cardizem without amlodipine for now and eventually restart patient back on lisinopril. Spironolactone was started and holding Demadex for now. Debility: Start physical therapy initially and titrate this gradually will ask secondary social studies teacher to see if patient can benefit from SNF or outpatient physical therapy with home care. Objective - Vital Signs Vital signs: Vital Signs Temp 98 F 11/20/23 04:00 Pulse 86 11/20/23 04:00 Resp 18 11/20/23 04:00 BP 108/66 11/20/23 04:00 Pulse Ox 97 11/20/23 04:00 FiO2 Intake & Output 11/19/23 11/19/23 11/20/23 06:59 18:59 06:59 Intake Total 240 Output Total 750 Balance -510 Weight 99.79 kg Intake: Oral 240 Output: Urine 750 Uretheral (Love) 600 Other: Voiding Method Indwelling Catheter - Labs CBC & Chem 7: 11/20/23 08:54 11/20/23 08:54 Labs: Abnormal Lab Results - Last 24 Hours (Table) 11/19/23 11/19/23 11/19/23 Range/Units 11:59 11:59 11:59 WBC 16.0 H (3.8-10.6) k/uL RBC 3.20 L (4.30-5.90) m/uL Hgb 11.2 L (13.0-17.5) gm/dL Hct 32.4 L (39.0-53.0) % MCV 101.2 H (80.0-100.0) fL Neutrophils # 13.5 H (1.3-7.7) k/uL Monocytes # 1.1 H (0-1.0) k/uL PT 12.8 H (10.0-12.5) sec INR 1.2 H (<1.2) Sodium 135 L (137-145) mmol/L Potassium 3.4 L (3.5-5.1) mmol/L Chloride 97 L (98-107) mmol/L BUN 53 H (9-20) mg/dL Creatinine 2.92 H (0.66-1.25) mg/dL Glucose 121 H (74-99) mg/dL Uric Acid (3.5-8.5) mg/dL Calcium 6.6 L (8.4-10.2) mg/dL Magnesium 0.4 L* (1.6-2.3) mg/dL Total Protein (6.3-8.2) g/dL 11/19/23 11/19/23 Range/Units 20:00 23:25 WBC (3.8-10.6) k/uL RBC (4.30-5.90) m/uL Hgb (13.0-17.5) gm/dL Hct (39.0-53.0) % MCV (80.0-100.0) fL Neutrophils # (1.3-7.7) k/uL Monocytes # (0-1.0) k/uL PT (10.0-12.5) sec INR (<1.2) Sodium 133 L (137-145) mmol/L Potassium 3.2 L (3.5-5.1) mmol/L Chloride 97 L (98-107) mmol/L BUN 53 H (9-20) mg/dL Creatinine 2.03 H (0.66-1.25) mg/dL Glucose 115 H (74-99) mg/dL Uric Acid 11.7 H (3.5-8.5) mg/dL Calcium 7.3 L (8.4-10.2) mg/dL Magnesium 1.3 L (1.6-2.3) mg/dL Total Protein 6.2 L (6.3-8.2) g/dL
--- NOTE | 2023-11-21 08:29 | P.PN ---
Subjective Progress Note Date: 11/21/23 HISTORY OF PRESENT ILLNESS: 78-year-old woman my office patient with multiple medical problems who is known to have history of A-fib, congestive heart failure, hypertension, hyperl ipidemia, post multiple joint placement, chronic lower back pain post fracture hip, was also suffered from chronic history of anasarca and worsening edema. Patient has been seen cardiology on regular basis was in the hospital last few months ago for worsening dyspnea, shortness of breath and CHF exacerbation require more diuretics. Patient apparently was in the emergency department on Saturday. For significant signs and symptoms of bilateral feet pain along with worsening urination sig nificant change in urine output entire workup did not show any major abnormality and ended up going back home. He presented to the emergency department today complaining of severe edema, bilateral feet pain, and found to have worsening kidney function with GFR quite a bit down compared to 2 days ago. With the above change patient was admitted to the hospital and started on hydration and found to have urinary retention Love catheter was inserted to watch his urine output and some of his nephrotoxic medication were held initially including diuretics and DAVID resume the rest of his medication will consult nephrology refer patient for ultrasound of the kidney. 11/20/2023: Patient repeat lab had improved significantly with creatinine at 2.03 then 1. 1 GFR is up to 58, magnesium climb up to 1.4 and still doing magnesium placement therapy. Patient was diagnosed with severe hyperuricemia and started on allopurinol repeat uric acid 5 days, also mild hyponatremia with a hydration remain the same. He was seen nephrology agree with the current management plan from holding diuretic encourage oral intake and restrict 15 cc 1500 cc of free water start Aldactone initially continue replaced magnesium. Renal ultrasound will perform and may be a cyst in the upper pole of right kidney with simple cyst in the left kidney with no sign of obstruction. 11/21/2023: Creatinine kidney function almost back to his normal baseline. He still have his Love catheter and tube removed today. He is complaining of severe cervical spine pain and discomfort with severe stiffness along with worsening spasm and discomfort in the bladder area from his catheter. Patient be sent for cervical spine x-ray also his Love catheter will be removed today and to watch patient residual to make sure he is able to void on his own without any retention. Cardiology yesterday start him on spironolactone and patient edema still seem at minimum. His blood pressure is holding well. Again asked physical therapy recreational therapy to work with patient and will ask social work job titles if patient may benefit from going to rehab out to SNF for physical therapy. REVIEW OF SYSTEMS: CONSTITUTIONAL: Well-developed no acute respiratory distress. EYES: No icterus sclerae, no conjunctivitis. EARS, NOSE, MOUTH, THROAT, and FACE: No sore throat, lymphadenopathy, carotid bruits or deformity. RESPIRATORY: Mild shortness of breath no cough or wheezes. CARDIOVASCULAR: Positive PND orthopnea palpitation no angina. GASTROINTESTINAL: Distended abdomen with slight nausea constipation. GENITOURINARY: Decreased urine output with mild irritation burning and discomfort. INTEGUMENT/BREAST: Negative for any muscular injury with mild osteoarthritis.. HEMATOLOGIC/LYMPHATIC: Negative for bleed or purpura. MUSCULOSKELTAL: Chronic arthralgia and myalgia. NEURLOGICAL: No LOC, Sz or syncope, blurred vision dizziness or abnormality.. BEHAVIORAL/PSYCH: Negative. ENDOCRINE: Negative. PHYSICAL EXAMINATION: General Appearance: Alert, cooperative, no distress, seems slight discomfort laying in bed. Neck HEENT: Supple, no lymphadenopathy, no thyroid enlargement, no carotid bruits. Lungs: Decreased breath sound the bases positive rhonchi slight crackles in the right base. Chest Wall: Decreased expansion with deep inspiration no tenderness and no deformity was found on exam, no costochondral pain or discomfort. Heart: Irregular rate and rhythm, S1, S2 positive S3 positive systolic murmur. Back: Symmetric, no curvature, ROM normal, severe scoliosis with slight CVA tenderness with scar tissue from previous surgery. Abdomen: Soft, non-tender, bowel sounds active all four quadrants, no masses, no organomegaly. Slight distended abdomen. Mild discomfort in the right upper quadrant area. Extremities: Extremities normal, atraumatic, no cyanosis positive edema 1-2+ lower extremity worse on the right of the left side. Foot exam shows slight w armness discomfort and swelling with chronic edema. Pulses: 2+ and symmetric. Skin: Skin color, texture, tugor normal, no rashes or lesions. Neurologic: Alert oriented x3 cranial nerves II through XII intact, no motor deficit, no abnormal balance or gait. ASSESSMENT AND PLAN: _Acute kidney injury: Much better so far no sign of obstructive uropathy with ultrasound was negative for Love catheter to be removed today and having to take him off the nephrotoxic agent medication had helped significantly. _Severe electrolyte imbalance including severe hypomagnesemia, hypokalemia: Adding spironolactone had helped his potassium quite bed and magnesium continue replacement therapy waiting for lab from this morning. _Severe hyperuricemia: We settled on 200 mg of allopurinol daily will repeat uric acid on Saturday. _Anasarca and edema: Much better so far with restricted salt and spironolactone without Demadex at this point. _Acute on chronic diastolic congestive heart failure: Has been on diuretics echocardiograms up-to-date still seen cardiology regular basis. _Persistent A-fib: Will continue on Eliquis along with beta-alexy with atenolol and Cardizem. Patient is on heart monitor watch for any persistent tachycardia or symptoms. _Chronic pain syndrome: Has been on hydrocodone 5/325 mg 3 times a day along with muscle relaxer. _Hypertension: With urgent symptoms sometimes remain on Zestril 20 mg daily, amlodipine 10 mg daily, torsemide or furosemide along with diltiazem CD. _Hyperlipidemia: Continue atorvastatin 20 mg a day. _Urinary retention: Continue Flomax catheter will be removed today. _Previous history of GI bleed with no recurrent bleed at this point remain on omeprazole 20 mg daily. _Hypertension: His blood pressure still slightly low without his DAVID continue Cardizem and spironolactone only. Debility: Start physical therapy initially and titrate this gradually will ask social work job titles to see if patient can benefit from SNF or outpatient physical therapy with home care. Objective - Vital Signs Vital signs: Vital Signs Temp 98.5 F 11/21/23 04:00 Pulse 86 11/21/23 04:00 Resp 19 11/21/23 04:00 BP 108/62 11/21/23 04:00 Pulse Ox 95 11/21/23 04:00 FiO2 Intake & Output 11/20/23 11/20/23 11/21/23 06:59 18:59 06:59 Intake Total 240 660 Output Total 750 1500 Balance -510 660 -1500 Weight 90.7 kg Intake: Oral 240 660 Output: Urine 750 1500 Uretheral (Love) 600 Other: Voiding Method Indwelling Catheter Indwelling Catheter Indwelling Catheter - Labs CBC & Chem 7: 11/20/23 08:54 11/20/23 08:54 Labs: Abnormal Lab Results - Last 24 Hours (Table) 11/20/23 11/20/23 Range/Units 08:54 08:54 RBC 3.04 L (4.30-5.90) m/uL Hgb 10.3 L (13.0-17.5) gm/dL Hct 30.7 L (39.0-53.0) % MCV 101.0 H (80.0-100.0) fL Sodium 131 L (137-145) mmol/L Potassium 3.2 L (3.5-5.1) mmol/L Carbon Dioxide 21 L (22-30) mmol/L BUN 45 H (9-20) mg/dL Glucose 176 H (74-99) mg/dL Calcium 7.3 L (8.4-10.2) mg/dL Magnesium 1.4 L (1.6-2.3) mg/dL Total Bilirubin 1.5 H (0.2-1.3) mg/dL Total Protein 5.8 L (6.3-8.2) g/dL Albumin 3.2 L (3.5-5.0) g/dL
--- NOTE | 2023-11-21 09:28 | XR ---
EXAMINATION TYPE: XR cervical spine comp DATE OF EXAM: 11/21/2023 COMPARISON: NONE HISTORY: Neck pain TECHNIQUE: Four views are submitted. FINDINGS: Exam is limited with the lateral view demonstrates the level C5. Odontoid view is nondiagnostic due t o positioning. There is soft tissue calcification likely related to carotid artery. Lung apices demon strate COPD. Multilevel facet arthropathy and degenerative disc disease. Diffuse osteopenia. Grade 1 anterolisthesis of C4-C5. Multilevel facet arthropathy. 3. Calcifications in the soft tissues likely related to carotid artery stenosis IMPRESSION: 1. Cervical spine as only single level of C5 with multilevel moderate to severe degenerative disc dis ease. Suspect multilevel bilateral foraminal encroachment. 2. Grade 1 anterolisthesis C4-C5.
[2023-11-21 10:23] LABS: HGB 10.7 gm/dL (13.0-17.5); MCH 34.3 pg (25.0-35.0); MCHC 33.3 g/dL (31.0-37.0); MCV 102.8 fL (80.0-100.0); Macrocytosis Slight; Mean Platelet Volume 8.6; Platelet Count 229 k/uL (150-450); RBC 3.11 m/uL (4.30-5.90); RDW 13.3 % (11.5-15.5); WBC 11.7 k/uL (3.8-10.6)
[2023-11-21 10:38] LABS: ALT 61 U/L (4-49); AST 57 U/L (17-59); African American GFR (CKD) >90 (>60 ml/min/1.73 sqM); Albumin 3.4 g/dL (3.5-5.0); Alkaline Phosphatase 114 U/L (38-126); Anion Gap 11 mmol/L; Blood Urea Nitrogen 34 mg/dL (9-20); Calcium 8.5 mg/dL (8.4-10.2); Carbon Dioxide 23 mmol/L (22-30); Chloride 102 mmol/L (98-107); Glucose 119 mg/dL (74-99); Non-African American GFR(CKD) 87 (>60 ml/min/1.73 sqM); Potassium 3.7 mmol/L (3.5-5.1); Sodium 136 mmol/L (137-145); Total Bilirubin 1.8 mg/dL (0.2-1.3); Total Protein 6.1 g/dL (6.3-8.2)
--- NOTE | 2023-11-21 10:46 | P.PN ---
Subjective Patient is seen in follow-up for acute kidney injury. Renal function back to baseline. Love catheter removed this morning. Denies chest pain or shortness of breath. Vital signs are stable. General: No acute distress. HEENT: Head exam is unremarkable. LUNGS: No audible rhonchi or wheezes. HEART: Rate and Rhythm are regular. ABDOMEN: Nontender. EXTREMITITES: No edema. Objective - Vital Signs Vital signs: Vital Signs Temp 97.7 F 11/21/23 08:00 Pulse 78 11/21/23 08:00 Resp 16 11/21/23 08:00 BP 127/56 11/21/23 08:00 Pulse Ox 95 11/21/23 08:00 FiO2 Intake & Output 11/20/23 11/21/23 11/21/23 18:59 06:59 18:59 Intake Total 660 120 Output Total 1500 Balance 660 -1500 120 Weight 90.7 kg Intake: Oral 660 120 Output: Urine 1500 Other: Voiding Method Indwelling Catheter Indwelling Catheter - Labs CBC & Chem 7: 11/21/23 09:09 11/21/23 09:09 Labs: Abnormal Lab Results - Last 24 Hours (Table) 11/21/23 11/21/23 Range/Units 09:09 09:09 WBC 11.7 H (3.8-10.6) k/uL RBC 3.11 L (4.30-5.90) m/uL Hgb 10.7 L (13.0-17.5) gm/dL Hct 32.0 L (39.0-53.0) % MCV 102.8 H (80.0-100.0) fL Sodium 136 L (137-145) mmol/L BUN 34 H (9-20) mg/dL Glucose 119 H (74-99) mg/dL Total Bilirubin 1.8 H (0.2-1.3) mg/dL ALT 61 H (4-49) U/L Total Protein 6.1 L (6.3-8.2) g/dL Albumin 3.4 L (3.5-5.0) g/dL Assessment and Plan Plan: Assessment: 1. Acute kidney injury secon hypokalemia savannah to vasomotor nephropathy second mckay to hypotension. Also concern for urinary retention. Creatinine 2.92 on admission and down to 0.75 today. UA benign. Baseline creatinine near 1. UA benign. No hydronephrosis noted on kidney ultrasound. Septated cyst noted on right kidney. Should follow-up with urology outpatient. 2. Hypokalemia from diuretics and hypomagnesemia. Replaced. Better. 3. Hypomagnesemia from diuretics. Replaced. Better. 4. Hyponatremia from poor intake and thiazide diuretic use. Improved. 5. Chronic diastolic CHF. 6. Urinary retention. Love catheter removed this morning. On Flomax. Plan: Encouraged oral intake. Hep-Lock IV fluids. Continue to hold diuretics. On Aldactone per cardiology. Avoid nephrotoxins. Continue to monitor renal function and urine output.
[2023-11-21] MEDS: POTASSIUM CHLORIDE ER 20 MEQ TAB.ER PO STA (12:01)
--- NOTE | 2023-11-21 14:42 | P.PN ---
Subjective Progress Note Date: 11/21/23 History of present illness: This is a 78-year-old male patient of Dr. Ashford with a past medical history significant for permanent atrial fibrillation on eliquis, hypertension, chronic diastolic heart failure, chronic kidney disease, mild aortic valve stenosis and GERD. We have been asked to see the patient in consultation for pedal edema. The patient presented to the hospital with a chief complaint of swelling in the lower extremities. He denies having any chest pain, no shortness of breath. Patient was admitted to the cardiac stepdown unit and diuretics, lisinopril, tor semide, metolazone and amlodipine have all been on hold. Patient states the lower extremity edema is improved. Patient has required Love catheter placement for urinary retention. Replacement of magnesium and potassium in progress and patient is been started on IV fluids per nephrology. EKG reveals A. fib with heart rate 95 Chest xray no acute findings. Laboratory data: WBC 16, hemoglobin 11.2, platelet count 226. INR 1.2. Sodium 133, potassium 3.2, chloride 97, CO2 22, BUN 53 and creatinine 2.03 down from 2.92 of yesterday. Troponin negative x 1. Liver function test are normal. proBNP 3600. Urinalysis was negative. Initial magnesium 0.4 followed by 1.3. Current home cardiac medications include amlodipine 10 mg daily, Eliquis 5 mg twice a day, atenolol 100 mg daily, atorvastatin 20 mg daily, Cardizem CD 300 mg daily, Lasix 40 mg in the morning and 20 mg in the afternoon, lisinopril 20 mg daily, magnesium oxide 400 mg twice daily, metolazone 5 mg daily, torsemide 20 mg daily Echocardiogram completed 02/12/2023 reveals EF of 55 to 60%, mild TR. Lexiscan Cardiolite stress test performed on 10/11/2022 revealed negative by EKG criteria. Probably normal myocardial perfusion and function. 11/20 Heart rate is running in the 70s and 80s, blood pressure 108/62, pulse ox 95% on room air. Yesterday we transition atenolol to metoprolol tartrate and discontinued Cardizem CD, added Aldactone. He did have a low blood pressure yesterday of 74/59 which seems to have recovered. Repeat blood work reveals WBC 11.7, hemoglobin 10.7. Sodium 136, potassium 3.7, BUN 34 creatinine 0.75. PHYSICAL EXAM: Gen: This is a 78-year-old male. He is resting and appears to be c omfortable, no acute distress noted. HEENT: Head is atraumatic, normocephalic. Pupils equal, round. Sclerae is anicteric. NECK: Supple. No JVD. No lymphadenopathy. No thyromegaly. LUNGS: Good air entry. No intercostal retractions. HEART: Irregular rate and rhythm. No murmur. ABDOMEN: Soft. Bowel sounds are present. No masses. No tenderness. EXTREMITIES: Trace pedal edema. No calf tenderness. NEUROLOGICAL: Patient is awake, alert and oriented x3. ASSESSMENT: Acute kidney injury Lower extremity edema due to local causes not reflective of heart failure/cardiac etiology No pulmonary hypertension Chronic diastolic heart failure Persistent permanent atrial fibrillation Hypertension GERD Former nicotine dependence PLAN: Continue current cardiac medications Cardiology will sign off this case and follow on an as-needed basis. Please reconsult for any new concerns. Patient may follow-up in the office with Dr. Himanshu Ashford in one to 2 weeks. Nurse practitioner note has been reviewed by physician. Signing provider agrees with the documented findings, assessment, and plan of care. Objective - Vital Signs Vital signs: Vital Signs Temp 98.5 F 11/21/23 04:00 Pulse 86 11/21/23 04:00 Resp 19 11/21/23 04:00 BP 108/62 11/21/23 04:00 Pulse Ox 95 11/21/23 04:00 FiO2 Intake & Output 11/20/23 11/21/23 11/21/23 18:59 06:59 18:59 Intake Total 660 Output Total 1500 Balance 660 -1500 Weight 90.7 kg Intake: Oral 660 Output: Urine 1500 Other: Voiding Method Indwelling Catheter Indwelling Catheter - Labs CBC & Chem 7: 11/21/23 09:09 11/21/23 09:09 Labs: Abnormal Lab Results - Last 24 Hours (Table) 11/20/23 11/20/23 Range/Units 08:54 08:54 RBC 3.04 L (4.30-5.90) m/uL Hgb 10.3 L (13.0-17.5) gm/dL Hct 30.7 L (39.0-53.0) % MCV 101.0 H (80.0-100.0) fL Sodium 131 L (137-145) mmol/L Potassium 3.2 L (3.5-5.1) mmol/L Carbon Dioxide 21 L (22-30) mmol/L BUN 45 H (9-20) mg/dL Glucose 176 H (74-99) mg/dL Calcium 7.3 L (8.4-10.2) mg/dL Magnesium 1.4 L (1.6-2.3) mg/dL Total Bilirubin 1.5 H (0.2-1.3) mg/dL Total Protein 5.8 L (6.3-8.2) g/dL Albumin 3.2 L (3.5-5.0) g/dL
--- NOTE | 2023-11-22 11:43 | P.PN ---
Subjective Patient is seen in follow-up for acute kidney injury. Renal function back to baseline. Love catheter removed yesterday and has been voiding on his own. Denies chest pain or shortness of breath. Vital signs are stable. General: No acute distress. HEENT: Head exam is unremarkable. LUNGS: No audible rhonchi or wheezes. HEART: Rate and Rhythm are regular. ABDOMEN: Nontender. EXTREMITITES: No edema. Objective - Vital Signs Vital signs: Vital Signs Temp 98.3 F 11/22/23 08:35 Pulse 92 11/22/23 08:35 Resp 18 11/22/23 08:35 BP 129/83 11/22/23 08:35 Pulse Ox 96 11/22/23 08:35 FiO2 Intake & Output 11/21/23 11/22/23 11/22/23 18:59 06:59 18:59 Intake Total 780 200 180 Output Total 560 Balance 780 -360 180 Weight 90 kg Intake: Oral 780 200 180 Output: Urine 560 Other: Voiding Method Indwelling Catheter Diaper Diaper # Voids 1 - Labs CBC & Chem 7: 11/21/23 09:09 11/21/23 09:09 Assessment and Plan Plan: Assessment: 1. Acute kidney injury secon hypokalemia savannah to vasomotor nephropathy secondary to hypotension. Also concern for urinary retention. Creatinine 2.92 on admission and down to 0.75 as of yesterday. UA benign. Baseline creatinine near 1. UA benign. No hydronephrosis noted on kidney ultrasound. Septated cyst noted on right kidney. Should follow-up with urology outpatient. 2. Hypokalemia from diuretics and hypomagnesemia. Replaced. Better. 3. Hypomagnesemia from diuretics. Replaced. Better. 4. Hyponatremia from poor intake and thiazide diuretic use. Improved. 5. Chronic diastolic CHF. 6. Urinary retention. Love catheter removed. On Flomax. Plan: Encouraged oral intake. On Aldactone per cardiology. Avoid nephrotoxins. Continue to monitor renal function and urine output.
--- NOTE | 2023-11-22 13:20 | MR ---
EXAMINATION TYPE: MR cervical spine wo con DATE OF EXAM: 11/22/2023 COMPARISON: None HISTORY: Severe Neck pain, unable to straighten neck CONTRAST: Performed utilizing 0 mL intravenous Gadavist gadolinium contrast. TECHNIQUE: Multiplanar multiecho imaging on a 3.0 Leslie magnet is performed through the cervical spin e. Exam is limited due to motion artifact. FINDINGS: The craniovertebral junction is normal. Vertebral body alignment is normal. There is dif fuse loss of disc height throughout the cervical spine. C7-T1: No focal disc herniation or significant disc bulge is evident. No spinal canal stenosis or n eural foraminal stenosis is present. C6-7: Central focal bulging is present with anterior thecal sac compression. No cord contact is evide nt. Neural foramen are patent. C5-6: No focal disc herniation or significant disc bulge is evident. No spinal canal stenosis or wily ral foraminal stenosis is present. C4-5: No focal disc herniation or significant disc bulge is evident. No spinal canal stenosis or wily ral foraminal stenosis is present. C3-4: Mild left paracentral disc bulging may be present without cord contact or spinal canal process. . C2-3: No focal disc herniation or significant disc bulge is evident. No spinal canal stenosis or wily ral foraminal stenosis is present. Procedure was terminated prior to intravenous contrast administration IMPRESSION: 1. Mild disc bulging centrally at C6-7 left paracentral C3-4 with [id number] anterior sac compr ession. No AP spinal canal stenosis or cord contact is evident 2. Examination is very limited due to motion artifact.
--- NOTE | 2023-11-22 14:48 | P.CNOR ---
History of Present Illness - [facility] Consult date: 11/22/23 Consult reason: neck pain History of present illness: Patient is a 78-year-old male who has been admitted to [facility] over the last few days with regards to CHF exacerbation, acute kidney injury, bilateral lower extremity edema. During the hospital stay did bring to patient has made mention of posterior neck pain. Internal medicine did order cervical spine x-rays along with a cervical spine MRI. Our orthopedic team was then consulted. Currently patient has been followed by cardiology, nephrology and internal medicine. Today at bedside, patient is resting in his hospital bed. Patient states seems slightly lethargic on exam. Patient is a poor historian with regards to his history. It sounds like patient has dealt with chronic low back pain which she does see a pain management doctor at orthopedic [facility]. He mention he was scheduled for some procedure in the near future with regards to an ablation. Patient also has a history of bilateral total knee replacements. Patient states that the neck pain has started about a week ago. Patient can remember no acute trauma or changes in activity. He notes most of the discomfort on posterior neck, more on the left-hand side. Patient denies any acute numbness or tingling to the bilateral upper extremity. He denies any acute loss of function involving the bilateral upper extremities. Patient admits to radicular symptoms in the bilateral lower extremities that have remained constant, there is been no acute changes. Patient was retaining urine from his acute kidney injury, Love catheter was placed, this has been removed and it sounds like he has been voiding with no difficulties. He denies any loss of bowel function at this time. Review of Systems Constitutional: Reports as per HPI Past Medical History Past Medical History: Atrial Fibrillation, Cancer, Heart Failure, GERD/Reflux, Hyperlipidemia, Hypertension, Osteoarthritis (OA) Additional Past Medical History / Comment(s): diverticular disease, bleeding duodenal ulcer, gastritis, hemorrhoids, chronic low back pain, vertigo at times, skin cancer with removal, CHF History of Any Multi-Drug Resistant Organisms: None Reported Past Surgical History: Appendectomy, Joint Replacement, Orthopedic Surgery, Tonsillectomy Additional Past Surgical History / Comment(s): Total L/R knee arthroplasty, bilateral total hip arthroplasties, bilateral carpal tunnel releases, L foot bone removed/hardware since removed and had spacer placed, steroid back injections, colonoscopies, basal cell skin cancer removed. Past Anesthesia/Blood Transfusion Reactions: No Reported Reaction Additional Past Anesthesia/Blood Transfusion Reaction / Comm: . Past Psychological History: No Psychological Hx Reported Smoking Status: Former smoker Past Alcohol Use History: Daily Past Drug Use History: None Reported - Past Family History Brother(s) Family Medical History: Cancer Mother Family Medical History: Cancer Additional Family Medical History / Comment(s): Mother lived to be 90yrs old. breast cancer Father Family Medical History: No Reported History Additional Family Medical History / Comment(s): Father lived to be in his early 80's. Medications and Allergies Home Medications Medication Instructions Recorded Confirmed Type Atenolol 100 mg PO DAILY 01/20/14 11/19/23 History Diltiazem Cd [Cardizem CD] 300 mg PO DAILY 01/20/14 11/19/23 History Omeprazole 20 mg PO DAILY 01/02/19 11/19/23 History Atorvastatin [Lipitor] 20 mg PO DAILY 09/22/21 11/19/23 History lisinopriL [Zestril] 20 mg PO DAILY 10/18/21 11/19/23 History HYDROcodone/APAP 5-325MG [[place] 1 tab PO TID PRN 02/11/23 11/19/23 History 5-325] Ibuprofen [Motrin] 800 mg PO TID PRN 02/11/23 11/19/23 History Apixaban [Eliquis] 5 mg PO DIRECTED 11/19/23 11/19/23 History Furosemide [Lasix] 20 mg PO DAILY 11/19/23 11/19/23 History Furosemide [Lasix] 40 mg PO DAILY 11/19/23 11/19/23 History Loratadine [Claritin] 10 mg PO DAILY 11/19/23 11/19/23 History Magnesium Oxide [Magox 400] 400 mg PO BID 11/19/23 11/19/23 History Sildenafil Citrate [Sildenafil] 20 mg PO DAILY PRN 11/19/23 11/19/23 History Torsemide [Soaanz] 20 mg PO DAILY 11/19/23 11/19/23 History amLODIPine [Norvasc] 10 mg PO DAILY 11/19/23 11/19/23 History metOLazone [Zaroxolyn] 5 mg PO DAILY 11/19/23 11/19/23 History Allergies Allergy/AdvReac Type Severity Reaction Status Date / Time No Known Allergies Allergy Verified 11/19/23 15:51 Physical Examination Gen: AOx3, NAD VSS stable at this time Integument: No open lesions or sores are visualized throughout the anterior posterior cervic al spine Palpation: mild tenderness with palpation to noted to the paraspinal region of the cervic al spine, more severe on the left side ROM: full range of motion in all major muscle groups of the bilateral upper and lower extremities, no focal deficits appreciated. patient demonstrates a very difficult time with range of motion of the cervical spine, this to include flexion and extension along with lateral rotation. Sensory Exam: Senory exam to light touch is intact C5-T1 Senosry exam to light touch is intact L2-S1 Motor: 4/5 strength appreciated in the bilateral upper extremities with shoulder elevation, shoulder abduction, elbow extension, elbow flexion, wrist extension, wrist flexion, relationship manager 4/5 strength appreciated the bilateral lower extremities with hip flexion, knee extension, knee flexion, plantarflexion, dorsiflexion, EHL, FHL Reflexes: 2/4 in all UE and LE negative Dl's, Babinski, clonus bilaterally Special Test: negative straight leg raise bilaterally Results - Labs Labs: H & H 11/19/23 11/20/23 11/21/23 Range/Units 11:59 08:54 09:09 Hgb 11.2 L 10.3 L 10.7 L (13.0-17.5) gm/dL Hct 32.4 L 30.7 L 32.0 L (39.0-53.0) % Coagulation 11/19/23 Range/Units 11:59 INR 1.2 H (<1.2) Result Diagrams: 11/21/23 09:09 11/21/23 09:09 - Diagnostic results Cervical AP/lateral x-ray: report reviewed, image reviewed Cervical MRI with/without contrast: report reviewed, image reviewed Assessment and Plan Assessment: Cervicalgia Multilevel cervical spine spondylosis Chronic low back pain Deconditioning Multiple medical comorbidities Plan: Imaging: Cervical x-rays along with cervical MRI without contrast, both report and images were reviewed. No acute fractures or dislocations present. Images demonstrated multilevel cervical spondylosis. There is no significant spinal cord compression noted from the MRI. Plan: I was able to discuss the case, this to include both physical exam findings and imaging studies my attending Dr. Davidson, No emergent orthopedic spine surgery recommended at this time Patient's current medical state seems very deconditioned, this is likely from his multiple medical comorbidities. Posterior neck pain at this time recommending conservative measures, this to include the use of Tylenol, low-dose muscle relaxer or even oral versus IV steroid taper to help alleviate symptoms DVT prophylaxis per primary medical service Other medical specialty recommendations appreciated Weight-bear as tolerated PT/OT evaluation recommended Will continue to follow patient during hospital stay Time with Patient: Less than 30
[2023-11-22] MEDS: APIXABAN 5 MG TAB PO SCH (20:11)
[2023-11-23] MEDS: DILTIAZEM 125 MG in SODIUM CHLORIDE 0.9% 100 ML IV SCH (02:30)
--- NOTE | 2023-11-23 05:44 | P.PN ---
Subjective Progress Note Date: 11/22/23 HISTORY OF PRESENT ILLNESS: 78-year-old woman my office patient with multiple medical problems who is known to have history of A-fib, congestive heart failure, hypertension, hyperl ipidemia, post multiple joint placement, chronic lower back pain post fracture hip, was also suffered from chronic history of anasarca and worsening edema. Patient has been seen cardiology on regular basis was in the hospital last few months ago for worsening dyspnea, shortness of breath and CHF exacerbation require more diuretics. Patient apparently was in the emergency department on Saturday. For significant signs and symptoms of bilateral feet pain along with worsening urination sig nificant change in urine output entire workup did not show any major abnormality and ended up going back home. He presented to the emergency department today complaining of severe edema, bilateral feet pain, and found to have worsening kidney function with GFR quite a bit down compared to 2 days ago. With the above change patient was admitted to the hospital and started on hydration and found to have urinary retention Love catheter was inserted to watch his urine output and some of his nephrotoxic medication were held initially including diuretics and DAVID resume the rest of his medication will consult nephrology refer patient for ultrasound of the kidney. 11/20/2023: Patient repeat lab had improved significantly with creatinine at 2.03 then 1. 1 GFR is up to 58, magnesium climb up to 1.4 and still doing magnesium placement therapy. Patient was diagnosed with severe hyperuricemia and started on allopurinol repeat uric acid 5 days, also mild hyponatremia with a hydration remain the same. He was seen nephrology agree with the current management plan from holding diuretic encourage oral intake and restrict 15 cc 1500 cc of free water start Aldactone initially continue replaced magnesium. Renal ultrasound will perform and may be a cyst in the upper pole of right kidney with simple cyst in the left kidney with no sign of obstruction. 11/21/2023: Creatinine kidney function almost back to his normal baseline. He still have his Love catheter and tube removed today. He is complaining of severe cervical spine pain and discomfort with severe stiffness along with worsening spasm and discomfort in the bladder area from his catheter. Patient be sent for cervical spine x-ray also his Love catheter will be removed today and to watch patient residual to make sure he is able to void on his own without any retention. Cardiology yesterday start him on spironolactone and patient edema still seem at minimum. His blood pressure is holding well. Again asked physical therapy recreational therapy to work with patient and will ask social work manager if patient may benefit from going to rehab out to SNF for physical therapy. 11/22/2023: Patient is having significant neck pain and discomfort he is not able to move out of bed, have slight dystonia turning his neck to the right side. Had run his x-ray of the cervical spine and came back with moderate to severe degenerative disc disease in the C5 along with multiple multiple bilateral spinal stenosis. Decided to send patient for MRI of the cervical spine and also to consult orthopedic. Cervical spine came back with mild disc bulging in the C6-7 with left paracentral C3-4 with mild to moderate anterior sac compression. He ended up seeing orthopedic the plan there is no nerve entrapment syndrome causing acute compression syndrome require any immediate surgical intervention asking probably for pain management and physical therapy. With the debility patient has probably require to go to rehab. He is acute kidney injury at this point with a creatinine down to 0.75 with normal BUN stabilized almost back to normal his hypokalemia and hypomagnesemia were replaced and that is mostly from diuretics. As for his congestive heart failure continue to improve gradually. Love catheter was removed today patient is on Flomax hoping to see if patient can void on his own. 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 REVIEW OF SYSTEMS: CONSTITUTIONAL: Well-developed no acute respiratory distress. EYES: No icterus sclerae, no conjunctivitis. EARS, NOSE, MOUTH, THROAT, and FACE: No sore throat, lymphadenopathy, carotid bruits or deformity. RESPIRATORY: Mild shortness of breath no cough or wheezes. CARDIOVASCULAR: Positive PND orthopnea palpitation no angina. GASTROINTESTINAL: Distended abdomen with slight nausea constipation. GENITOURINARY: Decreased urine output with mild irritation burning and discomfort. INTEGUMENT/BREAST: Negative for any muscular injury with mild osteoarthritis.. HEMATOLOGIC/LYMPHATIC: Negative for bleed or purpura. MUSCULOSKELTAL: Chronic arthralgia and myalgia. NEURLOGICAL: No LOC, Sz or syncope, blurred vision dizziness or abnormality.. BEHAVIORAL/PSYCH: Negative. ENDOCRINE: Negative. PHYSICAL EXAMINATION: General Appearance: Alert, cooperative, no distress, seems slight discomfort laying in bed. Neck HEENT: Supple, no lymphadenopathy, no thyroid enlargement, no carotid bruits. Lungs: Decreased breath sound the bases positive rhonchi slight crackles in the right base. Chest Wall: Decreased expansion with deep inspiration no tenderness and no deformity was found on exam, no costochondral pain or discomfort. Heart: Irregular rate and rhythm, S1, S2 positive S3 positive systolic murmur. Back: Symmetric, no curvature, ROM normal, severe scoliosis with slight CVA tenderness with scar tissue from previous surgery. Abdomen: Soft, non-tender, bowel sounds active all four quadrants, no masses, no organomegaly. Slight distended abdomen. Mild discomfort in the right upper quadrant area. Extremities: Extremities normal, atraumatic, no cyanosis positive edema 1-2+ lower extremity worse on the right of the left side. Foot exam shows slight warmness discomfort and swelling with chronic edema. Pulses: 2+ and symmetric. Skin: Skin color, texture, tugor normal, no rashes or lesions. Neurologic: Alert oriented x3 cranial nerves II through XII intact, no motor d eficit, no abnormal balance or gait. ASSESSMENT AND PLAN: _Acute kidney injury: His GFR with kidney function are back to normal. Continue to avoid any nephrotoxic agent. _Severe electrolyte imbalance including severe hypomagnesemia, hypokalemia: Adding spironolactone had helped his potassium quite bed and magnesium continue replacement therapy waiting for lab from this morning. _Severe hyperuricemia: He is to continue allopurinol uric acid will be done to jacinto. _Anasarca and edema: Much better so far with restricted salt and spironolactone without Demadex at this point. _Acute on chronic diastolic congestive heart failure: Has been on diuretics echocardiograms up-to-date still seen cardiology regular basis. _Persistent A-fib: Will continue on Eliquis along with beta-alexy with atenolol and Cardizem. Patient is on heart monitor watch for any persistent tachycardia or symptoms. _Severe cervical spine radiculopathy along with mild bulging disc and spinal stenosis: Patient had severe limited mobility at this point and severe pain. Was seen orthopedic had his MRI patient will need more physical therapy will consult anesthesia for possible pain management and epidural injection. _Chronic pain syndrome: Has been on hydrocodone 5/325 mg 3 times a day along with muscle relaxer. _Hypertension: With urgent symptoms sometimes remain on Zestril 20 mg daily, amlodipine 10 mg daily, torsemide or furosemide along with diltiazem CD. _Hyperlipidemia: Continue atorvastatin 20 mg a day. _Urinary retention: Continue Flomax catheter will be removed today. _Previous history of GI bleed with no recurrent bleed at this point remain on omeprazole 20 mg daily. _Hypertension: His blood pressure still slightly low without his DAVID continue Cardizem and spironolactone only. Debility: With his limited mobility with the cervical spine radiculopathy and bulging disc will initiate again physical therapy occupational therapy patient will probably require to go to rehab in the meanwhile with the severity of the pain we will see if pain management can do epidural injection. At this point patient is not ready to leave the hospital yet we will continue physical therapy and possibly plan for rehab may be around Saturday. Objective - Vital Signs Vital signs: Vital Signs Temp 98.2 F 11/22/23 04:00 Pulse 76 11/22/23 04:00 Resp 19 11/22/23 04:00 BP 130/80 11/22/23 04:00 Pulse Ox 95 11/22/23 04:00 FiO2 Intake & Output 11/21/23 11/21/23 11/22/23 06:59 18:59 06:59 Intake Total 780 200 Output Total 1500 560 Balance -1500 780 -360 Weight 90.7 kg 90 kg Intake: Oral 780 200 Output: Urine 1500 560 Other: Voiding Method Indwelling Catheter Indwelling Catheter Diaper # Voids 1 - Labs CBC & Chem 7: 11/21/23 09:09 11/21/23 09:09 Labs: Abnormal Lab Results - Last 24 Hours (Table) 11/21/23 11/21/23 Range/Units 09:09 09:09 WBC 11.7 H (3.8-10.6) k/uL RBC 3.11 L (4.30-5.90) m/uL Hgb 10.7 L (13.0-17.5) gm/dL Hct 32.0 L (39.0-53.0) % MCV 102.8 H (80.0-100.0) fL Sodium 136 L (137-145) mmol/L BUN 34 H (9-20) mg/dL Glucose 119 H (74-99) mg/dL Total Bilirubin 1.8 H (0.2-1.3) mg/dL ALT 61 H (4-49) U/L Total Protein 6.1 L (6.3-8.2) g/dL Albumin 3.4 L (3.5-5.0) g/dL
[2023-11-23 09:50] LABS: HCT 35.2 % (39.0-53.0); HGB 11.4 gm/dL (13.0-17.5); MCH 33.5 pg (25.0-35.0); MCHC 32.4 g/dL (31.0-37.0); MCV 103.4 fL (80.0-100.0); Macrocytosis Slight; Mean Platelet Volume 8.8; Platelet Count 257 k/uL (150-450); RDW 13.2 % (11.5-15.5)
[2023-11-23 10:04] LABS: ALT 134 U/L (4-49); AST 95 U/L (17-59); African American GFR (CKD) >90 (>60 ml/min/1.73 sqM); Albumin 3.4 g/dL (3.5-5.0); Alkaline Phosphatase 152 U/L (38-126); Anion Gap 11 mmol/L; Blood Urea Nitrogen 22 mg/dL (9-20); Calcium 9.5 mg/dL (8.4-10.2); Carbon Dioxide 24 mmol/L (22-30); Chloride 102 mmol/L (98-107); Glucose 159 mg/dL (74-99); Non-African American GFR(CKD) >90 (>60 ml/min/1.73 sqM); Potassium 3.8 mmol/L (3.5-5.1); Sodium 137 mmol/L (137-145); Total Bilirubin 1.7 mg/dL (0.2-1.3); Total Protein 6.4 g/dL (6.3-8.2)
--- NOTE | 2023-11-23 10:29 | P.PN ---
Subjective Progress Note Date: 11/23/23 HISTORY OF PRESENT ILLNESS: 78-year-old woman my office patient with multiple medical problems who is known to have history of A-fib, congestive heart failure, hypertension, hyperl ipidemia, post multiple joint placement, chronic lower back pain post fracture hip, was also suffered from chronic history of anasarca and worsening edema. Patient has been seen cardiology on regular basis was in the hospital last few months ago for worsening dyspnea, shortness of breath and CHF exacerbation require more diuretics. Patient apparently was in the emergency department on Saturday. For significant signs and symptoms of bilateral feet pain along with worsening urination sig nificant change in urine output entire workup did not show any major abnormality and ended up going back home. He presented to the emergency department today complaining of severe edema, bilateral feet pain, and found to have worsening kidney function with GFR quite a bit down compared to 2 days ago. With the above change patient was admitted to the hospital and started on hydration and found to have urinary retention Love catheter was inserted to watch his urine output and some of his nephrotoxic medication were held initially including diuretics and DAVID resume the rest of his medication will consult nephrology refer patient for ultrasound of the kidney. 11/20/2023: Patient repeat lab had improved significantly with creatinine at 2.03 then 1. 1 GFR is up to 58, magnesium climb up to 1.4 and still doing magnesium placement therapy. Patient was diagnosed with severe hyperuricemia and started on allopurinol repeat uric acid 5 days, also mild hyponatremia with a hydration remain the same. He was seen nephrology agree with the current management plan from holding diuretic encourage oral intake and restrict 15 cc 1500 cc of free water start Aldactone initially continue replaced magnesium. Renal ultrasound will perform and may be a cyst in the upper pole of right kidney with simple cyst in the left kidney with no sign of obstruction. 11/21/2023: Creatinine kidney function almost back to his normal baseline. He still have his Love catheter and tube removed today. He is complaining of severe cervical spine pain and discomfort with severe stiffness along with worsening spasm and discomfort in the bladder area from his catheter. Patient be sent for cervical spine x-ray also his Love catheter will be removed today and to watch patient residual to make sure he is able to void on his own without any retention. Cardiology yesterday start him on spironolactone and patient edema still seem at minimum. His blood pressure is holding well. Again asked physical therapy recreational therapy to work with patient and will ask social service manager if patient may benefit from going to rehab out to SNF for physical therapy. 11/22/2023: Patient is having significant neck pain and discomfort he is not able to move out of bed, have slight dystonia turning his neck to the right side. Had run his x-ray of the cervical spine and came back with moderate to severe degenerative disc disease in the C5 along with multiple multiple bilateral spinal stenosis. Decided to send patient for MRI of the cervical spine and also to consult orthopedic. Cervical spine came back with mild disc bulging in the C6-7 with left paracentral C3-4 with mild to moderate anterior sac compression. He ended up seeing orthopedic the plan there is no nerve entrapment syndrome causing acute compression syndrome require any immediate surgical intervention asking probably for pain management and physical therapy. With the debility patient has probably require to go to rehab. He is acute kidney injury at this point with a creatinine down to 0.75 with normal BUN stabilized almost back to normal his hypokalemia and hypomagnesemia were replaced and that is mostly from diuretics. As for his congestive heart failure continue to improve gradually. Love catheter was removed today patient is on Flomax hoping to see if patient can void on his own. 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 11/23/2023: Patient is resting comfortably in bed his neck remain extremely sore, physical therapist limited at this point. His Love catheter is out and patient was able to void on his own. Still waiting for uric acid from this morning. He had episode of A-fib with RVR was started on Cardizem drip from last still on anticoagulation still seeing cardiology regularly. His electrolyte imbalance along with kidney function test are much better but his liver function test has gone up a little bit causing his bilirubin ALT and AST to climb up will order an ultrasound of the liver and gallbladder to exclude the possibility of gallbladder stone or common duct stone. I spoke with the today and updated her on what is going on physically p atient will require to go for SNF for more physical therapy and help for at least the next 2 weeks. REVIEW OF SYSTEMS: CONSTITUTIONAL: Well-developed no acute respiratory distress. EYES: No icterus sclerae, no conjunctivitis. EARS, NOSE, MOUTH, THROAT, and FACE: No sore throat, lymphadenopathy, carotid bruits or deformity. RESPIRATORY: Mild shortness of breath no cough or wheezes. CARDIOVASCULAR: Positive PND orthopnea palpitation no angina. GASTROINTESTINAL: Distended abdomen with slight nausea constipation. GENITOURINARY: Decreased urine output with mild irritation burning and discomfort. INTEGUMENT/BREAST: Negative for any muscular injury with mild osteoarthritis.. HEMATOLOGIC/LYMPHATIC: Negative for bleed or purpura. MUSCULOSKELTAL: Chronic arthralgia and myalgia. NEURLOGICAL: No LOC, Sz or syncope, blurred vision dizziness or abnormality.. BEHAVIORAL/PSYCH: Negative. ENDOCRINE: Negative. PHYSICAL EXAMINATION: General Appearance: Alert, cooperative, no distress, seems slight discomfort laying in bed. Neck HEENT: Supple, no lymphadenopathy, no thyroid enlargement, no carotid bruits. Lungs: Decreased breath sound the bases positive rhonchi slight crackles in the right base. Chest Wall: Decreased expansion with deep inspiration no tenderness and no deformity was found on exam, no costochondral pain or discomfort. Heart: Irregular rate and rhythm, S1, S2 positive S3 positive systolic murmur. Back: Symmetric, no curvature, ROM normal, severe scoliosis with slight CVA tenderness with scar tissue from previous surgery. Abdomen: Soft, non-tender, bowel sounds active all four quadrants, no masses, no organomegaly. Slight distended abdomen. Mild discomfort in the right upper quadrant area. Extremities: Extremities normal, atraumatic, no cyanosis positive edema 1-2+ lower extremity worse on the right of the left side. Foot exam shows slight warmness discomfort and swelling with chronic edema. Pulses: 2+ and symmetric. Skin: Skin color, texture, tugor normal, no rashes or lesions. Neurologic: Alert oriented x3 cranial nerves II through XII intact, no motor deficit, no abnormal balance or gait. ASSESSMENT AND PLAN: _Acute kidney injury: His GFR with kidney function are back to normal. Continue to avoid any nephrotoxic agent. _Severe electrolyte imbalance including severe hypomagnesemia, hypokalemia: Adding spironolactone had helped his potassium quite bed and magnesium continue replacement therapy waiting for lab from this morning. _Severe hyperuricemia: He is to continue allopurinol uric acid will be done tomorrow. _A-fib with RVR: Back on Cardizem drip is still on anticoagulation hopefully the combination of atenolol along with higher dose of Cardizem might help if not patient might need to be on amiodarone. _Abnormal liver function test: With a current finding liver ultrasound be done and repeat lab tomorrow if there is any finding consistent with gallstone will consult general surgery. _Acute on chronic diastolic congestive heart failure: Has been on diuretics echocardiograms up-to-date still seen cardiology regular basis. _Persistent A-fib: Will continue on Eliquis along with beta-alexy with atenolol and Cardizem. Patient is on heart monitor watch for any persistent tachycardia or symptoms. _Severe cervical spine radiculopathy along with mild bulging disc and spinal stenosis: Patient had severe limited mobility at this point and severe pain. Was seen orthopedic had his MRI patient will need more physical therapy will consult anesthesia for possible pain management and epidural injection. _Chronic pain syndrome: Has been on hydrocodone 5/325 mg 3 times a day along with muscle relaxer. _Hypertension: With urgent symptoms sometimes remain on Zestril 20 mg daily, amlodipine 10 mg daily, torsemide or furosemide along with diltiazem CD. _Hyperlipidemia: Continue atorvastatin 20 mg a day. _Urinary retention: Continue Flomax catheter will be removed today. _Previous history of GI bleed with no recurrent bleed at this point remain on omeprazole 20 mg daily. _Hypertension: His blood pressure still slightly low without his DAVID continue Cardizem and spironolactone only. Debility: Continue to manage severe dystonia and neck pain along with the decreased mobility electrolytes are much better at this point, liver function test is off with an ultrasound, patient is stable in stable condition but still need more help. Objective - Vital Signs Vital signs: Vital Signs Temp 98.9 F 11/22/23 20:00 Pulse 109 H 11/23/23 04:20 Resp 16 11/23/23 04:20 BP 144/84 11/23/23 04:20 Pulse Ox 96 11/23/23 04:20 FiO2 Intake & Output 11/22/23 11/22/23 11/23/23 06:59 18:59 06:59 Intake Total 200 180 Output Total 560 400 Balance -360 -220 Weight 90 kg 98 kg Intake: Oral 200 180 Output: Urine 560 400 Other: Voiding Method Diaper Diaper External Catheter # Voids 1 - Labs CBC & Chem 7: 11/23/23 09:00 11/23/23 09:00
--- NOTE | 2023-11-23 11:31 | P.PN ---
Subjective patient is seen for follow-up for acute kidney injury. Renal function has improved. No significant complaints today. maintained on Cardizem dripfor A. fib with RVR Objective - Vital Signs Vital signs: Vital Signs Temp 98.2 F 11/23/23 08:50 Pulse 113 H 11/23/23 08:50 Resp 18 11/23/23 08:50 BP 133/66 11/23/23 08:50 Pulse Ox 95 11/23/23 08:50 FiO2 Intake & Output 11/22/23 11/23/23 11/23/23 18:59 06:59 18:59 Intake Total 180 250 246.833 Output Total 400 550 400 Balance -220 -300 -153.167 Weight 98 kg Intake: Intake, IV Titration 66.833 Amount Diltiazem 125 mg In 66.833 Sodium Chloride 0.9% 100 ml @ 10 MG/HR 10 mls/hr IV .[id number] [facility] Rx#: [id number] Oral 180 250 180 Output: Urine 400 550 400 Other: Voiding Method Diaper External Catheter External Catheter # Bowel Movements 0 - Exam patient is awake, comfortable, no acute distress. Examination of the heart S1 and S2 Examination the lungs bilateral breath sounds are heard Abdomen is soft nontender Examination of lower extremity shows no significant edema SALOON KEEPER exam grossly intact - Labs CBC & Chem 7: 11/23/23 09:00 11/23/23 09:00 Labs: Abnormal Lab Results - Last 24 Hours (Table) 11/23/23 11/23/23 Range/Units 09:00 09:00 WBC 11.0 H (3.8-10.6) k/uL RBC 3.40 L (4.30-5.90) m/uL Hgb 11.4 L (13.0-17.5) gm/dL Hct 35.2 L (39.0-53.0) % MCV 103.4 H (80.0-100.0) fL BUN 22 H (9-20) mg/dL Creatinine 0.54 L (0.66-1.25) mg/dL Glucose 159 H (74-99) mg/dL Total Bilirubin 1.7 H (0.2-1.3) mg/dL AST 95 H (17-59) U/L ALT 134 H (4-49) U/L Alkaline Phosphatase 152 H (38-126) U/L Albumin 3.4 L (3.5-5.0) g/dL Assessment and Plan Assessment: 1. Acute kidney injury secon hypokalemia [place] to vasomotor nephropathy secondary to hypotension. Also concern for urinary retention. Creatinine 2.92 on admission and down to 0.5. UA benign. Baseline creatinine near 1. UA benign. No hydronephrosis noted on kidney ultrasound. Septated cyst noted on right kidney. Should follow-up with urology outpatient. 2. Hypokalemia from diuretics and hypomagnesemia. Replaced. Better. 3. Hypomagnesemia from diuretics. Replaced. Better. 4. Hyponatremia from poor intake and thiazide diuretic use. Improved. 5. Chronic diastolic CHF. 6. Urinary retention. Love catheter removed. On Flomax. Plan: Continue to monitor renal function periodically encourage increased oral intake
--- NOTE | 2023-11-23 13:50 | P.PN ---
Subjective Progress Note Date: 11/23/23 Principal diagnosis: Neck pain, multilevel cervical spondylosis Patient was examined today at bedside, his was also present. Patient seems more alert today on exam. Patient continues to have that left-sided posterior neck pain but notes some improvement since yesterday, he is currently utilizing an ice pack. Patient continues to be followed by multiple medical specialties. He denies any new onset weakness to the bilateral upper extremities. Objective - Vital Signs Vital signs: Vital Signs Temp 98.2 F 11/23/23 08:50 Pulse 90 11/23/23 11:35 Resp 17 11/23/23 11:35 BP 130/71 11/23/23 11:35 Pulse Ox 94 L 11/23/23 11:35 FiO2 Intake & Output 11/22/23 11/23/23 11/23/23 18:59 06:59 18:59 Intake Total 180 250 482.833 Output Total 400 550 400 Balance -220 -300 82.833 Weight 98 kg Intake: Intake, IV Titration 66.833 Amount Diltiazem 125 mg In 66.833 Sodium Chloride 0.9% 100 ml @ 10 MG/HR 10 mls/hr IV .[id number] [facility] Rx#: [id number] Oral 180 250 416 Output: Urine 400 550 400 Other: Voiding Method Diaper External Catheter External Catheter # Bowel Movements 0 - Exam Gen: AOx3, NAD VSS stable at this time Integument: No open lesions or sores are visualized throughout the anterior posterior cervical spine Palpation: mild tenderness with palpation to noted to the paraspinal region of the cervical spine, more severe on the left side ROM: full range of motion in all major muscle groups of the bilateral upper and lower extremities, no focal deficits appreciated. patient demonstrates a very difficult time with range of motion of the cervical spine, this to include flexion and extension along with lateral rotation. Sensory Exam: Senory exam to light touch is intact C5-T1 Senosry exam to light touch is intact L2-S1 Motor: 4/5 strength appreciated in the bilateral upper extremities with shoulder elevation, shoulder abduction, elbow extension, elbow flexion, wrist extension, wrist flexion, local area network administrator 4/5 strength appreciated the bilateral lower extremities with hip flexion, knee extension, knee flexion, plantarflexion, dorsiflexion, EHL, FHL Reflexes: 2/4 in all UE and LE negative Dl's, Babinski, clonus bilaterally Special Test: negative straight leg raise bilaterally - Labs CBC & Chem 7: 11/23/23 09:00 11/23/23 09:00 Labs: Abnormal Lab Results - Last 24 Hours (Table) 11/23/23 11/23/23 Range/Units 09:00 09:00 WBC 11.0 H (3.8-10.6) k/uL RBC 3.40 L (4.30-5.90) m/uL Hgb 11.4 L (13.0-17.5) gm/dL Hct 35.2 L (39.0-53.0) % MCV 103.4 H (80.0-100.0) fL BUN 22 H (9-20) mg/dL Creatinine 0.54 L (0.66-1.25) mg/dL Glucose 159 H (74-99) mg/dL Total Bilirubin 1.7 H (0.2-1.3) mg/dL AST 95 H (17-59) U/L ALT 134 H (4-49) U/L Alkaline Phosphatase 152 H (38-126) U/L Albumin 3.4 L (3.5-5.0) g/dL Assessment and Plan Assessment: Cervicalgia Multilevel cervical spine spondylosis Chronic low back pain Deconditioning Multiple medical comorbidities Plan: Imaging: Cervical x-rays along with cervical MRI without contrast, both report and images were reviewed. No acute fractures or dislocations present. Images demonstrated multilevel cervical spondylosis. There is no significant spinal cord compression noted from the MRI. Plan: Continue conservative measures, I did add Flexeril 5 mg to try at bedtime DVT prophylaxis per primary medical service Other medical specialty recommendations appreciated Weight-bear as tolerated PT/OT evaluation recommended Orthopedically patient remains stable, please contact our service with any questions regarding the patient. Our follow-up information will be placed in chart. Time with Patient: Less than 30
[2023-11-23] MEDS: DAPAGLIFLOZIN PROPANEDIOL 5 MG TABLET PO SCH (16:08)
[2023-11-23] MEDS: DILTIAZEM CD 120 MG CAP.ER.24H PO SCH (16:08)
[2023-11-23] MEDS: METOPROLOL TARTRATE 50 MG TAB PO SCH (20:43)
[2023-11-23] MEDS: CYCLOBENZAPRINE 5 MG TAB PO SCH (20:43)
--- NOTE | 2023-11-23 20:52 | P.PN ---
Subjective Progress Note Date: 11/23/23 This is a 78-year-old male patient of Dr. Ashford with a past medical history significant for permanent atrial fibrillation on eliquis, hypertension, chronic diastolic heart failure, chronic kidney disease, mild aortic valve stenosis and GERD. We have been asked to see the patient in consultation for pedal edema. The patient presented to the hospital with a chief complaint of swelling in the lower extremities. He denies having any chest pain, no shortness of breath. Patient was admitted to the cardiac stepdown unit and diuretics, lisinopril, torsemide, metolazone and amlodipine have all been on hold. Patient states the lower extremity edema is improved. Patient has required Love catheter placem ent for urinary retention. Replacement of magnesium and potassium in progress and patient is been started on IV fluids per nephrology. EKG reveals A. fib with heart rate 95 Chest xray no acute findings. Laboratory data: WBC 16, hemoglobin 11.2, platelet count 226. INR 1.2. Sodium 133, potassium 3.2, chloride 97, CO2 22, BUN 53 and creatinine 2.03 down from 2.92 of yesterday. Troponin negative x 1. Liver function test are normal. proBNP 3600. Urinalysis was negative. Initial magnesium 0.4 followed by 1.3. Current home cardiac medications include amlodipine 10 mg daily, Eliquis 5 mg t wice a day, atenolol 100 mg daily, atorvastatin 20 mg daily, Cardizem CD 300 mg daily, Lasix 40 mg in the morning and 20 mg in the afternoon, lisinopril 20 mg daily, magnesium oxide 400 mg twice daily, metolazone 5 mg daily, torsemide 20 mg daily Echocardiogram completed 02/12/2023 reveals EF of 55 to 60%, mild TR. Lexiscan Cardiolite stress test performed on 10/11/2022 revealed negative by EKG criteria. Probably normal myocardial perfusion and function. 11/20 Heart rate is running in the 70s and 80s, blood pressure 108/62, pulse ox 95% on room air. Yesterday we transition atenolol to metoprolol tartrate and discontinued Cardizem CD, added Aldactone. He did have a low blood pressure yesterday of 74/59 which seems to have recovered. Repeat blood work reveals WBC 11.7, hemoglobin 10.7. Sodium 136, potassium 3.7, BUN 34 creatinine 0.75. November 23, 2023 Last night patient was going into atrial fibrillation with RVR therefore cardiology was reconsulted. This morning his rates are better controlled on Cardizem drip. I will discontinue his Cardizem drip and start him on p.o. Cardizem. I will also increase his metoprolol to 100 mg twice daily because his blood pressure can tolerate it. To reduce his intracardiac pressures I would start him on Farxiga 5 mg daily. He would also benefit from a low-dose Lasix like 20 mg to be started from tomorrow. PHYSICAL EXAM: Gen: This is a 78-year-old male. He is resting and appears to be comfortable, no acute distress noted. HEENT: Head is atraumatic, normocephalic. Pupils equal, round. Sclerae is anicteric. NECK: Supple. No JVD. No lymphadenopathy. No thyromegaly. LUNGS: Good air entry. No intercostal retractions. HEART: Irregular rate and rhythm. No murmur. ABDOMEN: Soft. Bowel sounds are present. No masses. No tenderness. EXTREMITIES: Trace pedal edema. No calf tenderness. NEUROLOGICAL: Patient is awake, alert and oriented x3. ASSESSMENT: Acute kidney injury Lower extremity edema due to local causes not reflective of heart failure/cardiac etiology No pulmonary hypertension Chronic diastolic heart failure Persistent permanent atrial fibrillation Hypertension GERD Former nicotine dependence PLAN: Continue current cardiac medications Last night patient was going into atrial fibrillation with RVR therefore cardiology was reconsulted. This morning his rates are better controlled on Cardizem drip. I will discontinue his Cardizem drip and start him on p.o. Cardizem. I will also increase his metoprolol to 100 mg twice daily because his blood pressure can tolerate it. To reduce his intracardiac pressures I would start him on Farxiga 5 mg daily. He would also benefit from a low-dose Lasix li ke 20 mg to be started from tomorrow. Objective - Vital Signs Vital signs: Vital Signs Temp 98.2 F 11/23/23 08:50 Pulse 92 11/23/23 16:00 Resp 18 11/23/23 16:00 BP 135/71 11/23/23 16:00 Pulse Ox 96 11/23/23 16:00 FiO2 Intake & Output 11/23/23 11/23/23 11/24/23 06:59 18:59 06:59 Intake Total 250 792.333 Output Total 550 650 Balance -300 142.333 Weight 98 kg Intake: Intake, IV Titration 136.333 Amount Diltiazem 125 mg In 136.333 Sodium Chloride 0.9% 100 ml @ 10 MG/HR 10 mls/hr IV .[id number] [facility] Rx#: [id number] Oral 250 656 Output: Urine 550 650 Other: Voiding Method External Catheter External Catheter # Bowel Movements 0 - Labs CBC & Chem 7: 11/23/23 09:00 11/23/23 09:00 Labs: Abnormal Lab Results - Last 24 Hours (Table) 11/23/23 11/23/23 Range/Units 09:00 09:00 WBC 11.0 H (3.8-10.6) k/uL RBC 3.40 L (4.30-5.90) m/uL Hgb 11.4 L (13.0-17.5) gm/dL Hct 35.2 L (39.0-53.0) % MCV 103.4 H (80.0-100.0) fL BUN 22 H (9-20) mg/dL Creatinine 0.54 L (0.66-1.25) mg/dL Glucose 159 H (74-99) mg/dL Total Bilirubin 1.7 H (0.2-1.3) mg/dL AST 95 H (17-59) U/L ALT 134 H (4-49) U/L Alkaline Phosphatase 152 H (38-126) U/L Albumin 3.4 L (3.5-5.0) g/dL
[2023-11-24] MEDS: FUROSEMIDE 20 MG TAB PO SCH (08:46)
--- NOTE | 2023-11-24 09:10 | P.PN ---
Subjective Progress Note Date: 11/24/23 This is a 78-year-old male patient of Dr. Ashford with a past medical history significant for permanent atrial fibrillation on eliquis, hypertension, chronic diastolic heart failure, chronic kidney disease, mild aortic valve stenosis and GERD. We have been asked to see the patient in consultation for pedal edema. The patient presented to the hospital with a chief complaint of swelling in the lower extremities. He denies having any chest pain, no shortness of breath. Patient was admitted to the cardiac stepdown unit and diuretics, lisinopril, torsemide, metolazone and amlodipine have all been on hold. Patient states the lower extremity edema is improved. Patient has required Love catheter placem ent for urinary retention. Replacement of magnesium and potassium in progress and patient is been started on IV fluids per nephrology. EKG reveals A. fib with heart rate 95 Chest xray no acute findings. Laboratory data: WBC 16, hemoglobin 11.2, platelet count 226. INR 1.2. Sodium 133, potassium 3.2, chloride 97, CO2 22, BUN 53 and creatinine 2.03 down from 2.92 of yesterday. Troponin negative x 1. Liver function test are normal. proBNP 3600. Urinalysis was negative. Initial magnesium 0.4 followed by 1.3. Current home cardiac medications include amlodipine 10 mg daily, Eliquis 5 mg t wice a day, atenolol 100 mg daily, atorvastatin 20 mg daily, Cardizem CD 300 mg daily, Lasix 40 mg in the morning and 20 mg in the afternoon, lisinopril 20 mg daily, magnesium oxide 400 mg twice daily, metolazone 5 mg daily, torsemide 20 mg daily Echocardiogram completed 02/12/2023 reveals EF of 55 to 60%, mild TR. Lexiscan Cardiolite stress test performed on 10/11/2022 revealed negative by EKG criteria. Probably normal myocardial perfusion and function. 11/20 Heart rate is running in the 70s and 80s, blood pressure 108/62, pulse ox 95% on room air. Yesterday we transition atenolol to metoprolol tartrate and discontinued Cardizem CD, added Aldactone. He did have a low blood pressure yesterday of 74/59 which seems to have recovered. Repeat blood work reveals WBC 11.7, hemoglobin 10.7. Sodium 136, potassium 3.7, BUN 34 creatinine 0.75. November 23, 2023 Last night patient was going into atrial fibrillation with RVR therefore cardiology was reconsulted. This morning his rates are better controlled on Cardizem drip. I will discontinue his Cardizem drip and start him on p.o. Cardizem. I will also increase his metoprolol to 100 mg twice daily because his blood pressure can tolerate it. To reduce his intracardiac pressures I would start him on Farxiga 5 mg daily. He would also benefit from a low-dose Lasix like 20 mg to be started from tomorrow. November 24, 2023 Patient reports that he has not had any bowel movement in last 4 to 5 days. He has not been out of his bed much. His heart rates are ranging from 80s to 110 bpm continues to be in persistent chronic atrial fibrillation. Regarding fluid status he does not appear significantly volume overloaded. PHYSICAL EXAM: Gen: This is a 78-year-old male. He is resting and appears to be comfortable, no acute distress noted. HEENT: Head is atraumatic, normocephalic. Pupils equal, round. Sclerae is anicteric. NECK: Supple. No JVD. No lymphadenopathy. No thyromegaly. LUNGS: Good air entry. No intercostal retractions. HEART: Irregular rate and rhythm. No murmur. ABDOMEN: Soft. Bowel sounds are present. No masses. No tenderness. EXTREMITIES: Trace pedal edema. No calf tenderness. NEUROLOGICAL: Patient is awake, alert and oriented x3. ASSESSMENT: Acute kidney injury Chronic diastolic heart failure Persistent permanent atrial fibrillation with RVR Hypertension GERD Former nicotine dependence PLAN: Continue current cardiac medications Increase metoprolol to 150 mg twice daily as patient's blood pressure can tolerate it and he continues to be in RVR with resting heart rates going up to 120s. Continue Cardizem 120 mg CD daily I added Farxiga 5 mg, Lasix 20 mg. This will help his diastolic heart failure and reduced intracardiac pressures. I highly recommend incentive spirometer, out of bed, removal of condom catheter, encourage getting up and using bathroom. Give senna and Colace for constipation. Recommend PT and OT evaluation and discharge planning. Objective - Vital Signs Vital signs: Vital Signs Temp 98.0 F 11/24/23 04:00 Pulse 100 11/24/23 04:00 Resp 18 11/24/23 04:00 BP 134/74 11/24/23 04:00 Pulse Ox 96 11/24/23 04:00 FiO2 Intake & Output 11/23/23 11/24/23 11/24/23 18:59 06:59 18:59 Intake Total 792.333 240 118 Output Total 650 1050 Balance 142.333 -810 118 Intake: Intake, IV Titration 136.333 Amount Diltiazem 125 mg In 136.333 Sodium Chloride 0.9% 100 ml @ 10 MG/HR 10 mls/hr IV .[id number] [facility] Rx#: [id number] Oral 656 240 118 Output: Urine 650 1050 Other: Voiding Method External Catheter External Catheter - Labs CBC & Chem 7: 11/23/23 09:00 11/23/23 09:00 Labs: Abnormal Lab Results - Last 24 Hours (Table) 11/23/23 11/23/23 Range/Units 09:00 09:00 WBC 11.0 H (3.8-10.6) k/uL RBC 3.40 L (4.30-5.90) m/uL Hgb 11.4 L (13.0-17.5) gm/dL Hct 35.2 L (39.0-53.0) % MCV 103.4 H (80.0-100.0) fL BUN 22 H (9-20) mg/dL Creatinine 0.54 L (0.66-1.25) mg/dL Glucose 159 H (74-99) mg/dL Total Bilirubin 1.7 H (0.2-1.3) mg/dL AST 95 H (17-59) U/L ALT 134 H (4-49) U/L Alkaline Phosphatase 152 H (38-126) U/L Albumin 3.4 L (3.5-5.0) g/dL
--- NOTE | 2023-11-24 10:05 | US ---
EXAMINATION TYPE: US liver DATE OF EXAM: 11/24/2023 COMPARISON: NONE CLINICAL INDICATION: Male, 78 years old with history of Abnormal Liver Function tests; LFTs TECHNIQUE: Multiple sonographic images of the right upper quadrant are obtained. FINDINGS: EXAM MEASUREMENTS: Liver Length: 18.7 cm Gallbladder Wall: 0.2 cm CBD: 0.4 cm Right Kidney: 10.4x5.5x6.0 cm [employer] NOTES: Pancreas: Obscured by bowel gas Liver: enlarged Gallbladder: sludge noted. Shadowing gallstones not identified. Evidence for sonographic Mendez's sign: No CBD: wnl as visualized Right Kidney: small hypoechoic septated areas measuring 2.4x2.4x2.5cm noted at lateral/superior aspe ct of kidney exam very limited by bowel gas, tight rib spaces, and patient inability to change positioning. Patien t scanned in supine position IMPRESSION: 1. Sludge within the gallbladder. 2. Complex cyst right kidney
[2023-11-24 10:45] LABS: HCT 32.7 % (39.0-53.0); HGB 10.7 gm/dL (13.0-17.5); MCH 33.9 pg (25.0-35.0); MCHC 32.7 g/dL (31.0-37.0); MCV 103.5 fL (80.0-100.0); Macrocytosis Slight; Platelet Count 284 k/uL (150-450); RBC 3.16 m/uL (4.30-5.90); RDW 13.7 % (11.5-15.5); WBC 10.5 k/uL (3.8-10.6)
--- NOTE | 2023-11-24 10:49 | P.PN ---
Subjective patient is seen for follow-up for acute kidney injury. Renal function has improved. No significant complaints today. off of Cardizem drip. Objective - Vital Signs Vital signs: Vital Signs Temp 98.0 F 11/24/23 04:00 Pulse 100 11/24/23 04:00 Resp 18 11/24/23 04:00 BP 134/74 11/24/23 04:00 Pulse Ox 96 11/24/23 04:00 FiO2 Intake & Output 11/23/23 11/24/23 11/24/23 18:59 06:59 18:59 Intake Total 792.333 240 118 Output Total 650 1050 550 Balance 142.333 -810 -432 Intake: Intake, IV Titration 136.333 Amount Diltiazem 125 mg In 136.333 Sodium Chloride 0.9% 100 ml @ 10 MG/HR 10 mls/hr IV .[id number] [facility] Rx#: [id number] Oral 656 240 118 Output: Urine 650 1050 550 Other: Voiding Method External Catheter External Catheter - Exam patient is awake, comfortable, no acute distress. 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 Acute kidney injury secon hypokalemia [place] to vasomotor nephropathy secondary to hypotension. Also concern for urinary retention. Creatinine 2.92 on admission and down to 0.5. UA benign. Baseline creatinine near 1. UA benign. No hydronephrosis noted on kidney ultrasound. Septated cyst noted on right kidney. Should follow-up with urology outpatient. 2. Hypokalemia from diuretics and hypomagnesemia. Replaced. Better. 3. Hypomagnesemia from diuretics. Replaced. Better. 4. Hyponatremia from poor intake and thiazide diuretic use. Improved. 5. Chronic diastolic CHF. 6. Urinary retention. Love catheter removed. On Flomax. Plan: Continue to monitor renal function periodically encourage increased oral intake We will sign off
[2023-11-24 11:06] LABS: ALT 364 U/L (4-49); AST 302 U/L (17-59); African American GFR (CKD) >90 (>60 ml/min/1.73 sqM); Albumin 3.1 g/dL (3.5-5.0); Alkaline Phosphatase 169 U/L (38-126); Anion Gap 7 mmol/L; Blood Urea Nitrogen 24 mg/dL (9-20); Calcium 9.2 mg/dL (8.4-10.2); Carbon Dioxide 25 mmol/L (22-30); Chloride 103 mmol/L (98-107); Glucose 135 mg/dL (74-99); Non-African American GFR(CKD) >90 (>60 ml/min/1.73 sqM); Potassium 4.1 mmol/L (3.5-5.1); Sodium 135 mmol/L (137-145); Total Bilirubin 1.4 mg/dL (0.2-1.3); Total Protein 5.8 g/dL (6.3-8.2)
[2023-11-24] MEDS: METOPROLOL TARTRATE 50 MG TAB PO ONE (13:13)
[2023-11-24] MEDS: DOCUSATE 100 MG CAP PO STA (13:14)
[2023-11-24] MEDS: SENNOSIDES 8.6 MG TAB PO STA (13:14)
--- NOTE | 2023-11-24 13:38 | P.PN ---
Subjective Progress Note Date: 11/24/23 HISTORY OF PRESENT ILLNESS: 78-year-old woman my office patient with multiple medical problems who is known to have history of A-fib, congestive heart failure, hypertension, hyperl ipidemia, post multiple joint placement, chronic lower back pain post fracture hip, was also suffered from chronic history of anasarca and worsening edema. Patient has been seen cardiology on regular basis was in the hospital last few months ago for worsening dyspnea, shortness of breath and CHF exacerbation require more diuretics. Patient apparently was in the emergency department on Saturday. For significant signs and symptoms of bilateral feet pain along with worsening urination sig nificant change in urine output entire workup did not show any major abnormality and ended up going back home. He presented to the emergency department today complaining of severe edema, bilateral feet pain, and found to have worsening kidney function with GFR quite a bit down compared to 2 days ago. With the above change patient was admitted to the hospital and started on hydration and found to have urinary retention Love catheter was inserted to watch his urine output and some of his nephrotoxic medication were held initially including diuretics and DAVID resume the rest of his medication will consult nephrology refer patient for ultrasound of the kidney. 11/20/2023: Patient repeat lab had improved significantly with creatinine at 2.03 then 1. 1 GFR is up to 58, magnesium climb up to 1.4 and still doing magnesium placement therapy. Patient was diagnosed with severe hyperuricemia and started on allopurinol repeat uric acid 5 days, also mild hyponatremia with a hydration remain the same. He was seen nephrology agree with the current management plan from holding diuretic encourage oral intake and restrict 15 cc 1500 cc of free water start Aldactone initially continue replaced magnesium. Renal ultrasound will perform and may be a cyst in the upper pole of right kidney with simple cyst in the left kidney with no sign of obstruction. 11/21/2023: Creatinine kidney function almost back to his normal baseline. He still have his Love catheter and tube removed today. He is complaining of severe cervical spine pain and discomfort with severe stiffness along with worsening spasm and discomfort in the bladder area from his catheter. Patient be sent for cervical spine x-ray also his Love catheter will be removed today and to watch patient residual to make sure he is able to void on his own without any retention. Cardiology yesterday start him on spironolactone and patient edema still seem at minimum. His blood pressure is holding well. Again asked physical therapy recreational therapy to work with patient and will ask hospice social worker if patient may benefit from going to rehab out to SNF for physical therapy. 11/22/2023: Patient is having significant neck pain and discomfort he is not able to move out of bed, have slight dystonia turning his neck to the right side. Had run his x-ray of the cervical spine and came back with moderate to severe degenerative disc disease in the C5 along with multiple multiple bilateral spinal stenosis. Decided to send patient for MRI of the cervical spine and also to consult orthopedic. Cervical spine came back with mild disc bulging in the C6-7 with left paracentral C3-4 with mild to moderate anterior sac compression. He ended up seeing orthopedic the plan there is no nerve entrapment syndrome causing acute compression syndrome require any immediate surgical intervention asking probably for pain management and physical therapy. With the debility patient has probably require to go to rehab. He is acute kidney injury at this point with a creatinine down to 0.75 with normal BUN stabilized almost back to normal his hypokalemia and hypomagnesemia were replaced and that is mostly from diuretics. As for his congestive heart failure continue to improve gradually. Love catheter was removed today patient is on Flomax hoping to see if patient can void on his own. My conclusion I will think patient is going to be able to go home from here he will require little bit more help with physical therapy he is more than 1 person energy assistant time. 11/23/2023: Patient is resting comfortably in bed his neck remain extremely sore, physical therapist limited at this point. His Love catheter is out and patient was able to void on his own. Still waiting for uric acid from this morning. He had episode of A-fib with RVR was started on Cardizem drip from last still on anticoagulation still seeing cardiology regularly. His electrolyte imbalance along with kidney function test are much better but his liver function test has gone up a little bit causing his bilirubin ALT and AST to climb up will order an ultrasound of the liver and gallbladder to exclude the possibility of gallbladder stone or common duct stone. I spoke with the today and updated her on what is going on physically p atient will require to go for SNF for more physical therapy and help for at least the next 2 weeks. 11/24/2023: Patient remains slightly but comfortable continue to have significant cervical spine pain and discomfort still having slight dystonia turning his head to the right side with the neck is very stiff. Last 24 hours the continue having slight A-fib with RVR cardiology started him on Cardizem drip initially and move him into Cardizem orally along with increasing his dose of metoprolol to 100 mg daily and initiate Farxiga 5 mg daily. Will add Lasix 20 mg a day as well. Also patient was seen orthopedic which they agreed to continue conservative management by adding Flexeril and PT OT waiting for pain management for possible epidural. Addition patient developed to have significant wrist pain with most likely gout flareup despite uric acid dropped down to 6.0 but in the process probably was having more mobilization of uric acid reason why was 11 came down little bit fast with the allopurinol but that can drive patient to having gout for use for few days colchicine to reduce the side effect and complaint. REVIEW OF SYSTEMS: CONSTITUTIONAL: Well-developed no acute respiratory distress. EYES: No icterus sclerae, no conjunctivitis. EARS, NOSE, MOUTH, THROAT, and FACE: No sore throat, lymphadenopathy, carotid bruits or deformity. RESPIRATORY: Mild shortness of breath no cough or wheezes. CARDIOVASCULAR: Positive PND orthopnea palpitation no angina. GASTROINTESTINAL: Distended abdomen with slight nausea constipation. GENITOURINARY: Decreased urine output with mild irritation burning and discomfort. INTEGUMENT/BREAST: Negative for any muscular injury with mild osteoarthritis.. HEMATOLOGIC/LYMPHATIC: Negative for bleed or purpura. MUSCULOSKELTAL: Chronic arthralgia and myalgia. NEURLOGICAL: No LOC, Sz or syncope, blurred vision dizziness or abnormality.. BEHAVIORAL/PSYCH: Negative. ENDOCRINE: Negative. PHYSICAL EXAMINATION: General Appearance: Alert, cooperative, no distress, seems slight discomfort laying in bed. Neck HEENT: Supple, no lymphadenopathy, no thyroid enlargement, no carotid brui ts. Lungs: Decreased breath sound the bases positive rhonchi slight crackles in the right base. Chest Wall: Decreased expansion with deep inspiration no tenderness and no deformity was found on exam, no costochondral pain or discomfort. Heart: Irregular rate and rhythm, S1, S2 positive S3 positive systolic murmur. Back: Symmetric, no curvature, ROM normal, severe scoliosis with slight CVA tenderness with scar tissue from previous surgery. Abdomen: Soft, non-tender, bowel sounds active all four quadrants, no masses, no organomegaly. Slight distended abdomen. Mild discomfort in the right upper quadrant area. Extremities: Extremities normal, atraumatic, no cyanosis positive edema 1-2+ lower extremity worse on the right of the left side. Foot exam shows slight warmness discomfort and swelling with chronic edema. Pulses: 2+ and symmetric. Skin: Skin color, texture, tugor normal, no rashes or lesions. Neurologic: Alert oriented x3 cranial nerves II through XII intact, no motor deficit, no abnormal balance or gait. ASSESSMENT AND PLAN: _Acute kidney injury: His GFR with kidney function are back to normal. Continue to avoid any nephrotoxic agent. _Severe electrolyte imbalance including severe hypomagnesemia, hypokalemia: Adding spironolactone had helped his potassium quite bed and magnesium continue replacement therapy waiting for lab from this morning. _Severe hyperuricemia: He is to continue allopurinol uric acid was down to 6.0. Developed to have gout in the wrist will add colchicine for 3 days. _A-fib with RVR: He is back on Cardizem orally along with metoprolol 100 mg daily and added slight Farxiga for improvement of the ventricle contractility. _Abnormal liver function test: With a current finding liver ultrasound be done and repeat lab tomorrow if there is any finding consistent with gallstone will consult general surgery. _Acute on chronic diastolic congestive heart failure: Has been on diuretics echocardiograms up-to-date still seen cardiology regular basis. _Persistent A-fib: Will continue on Eliquis along with beta-alexy with atenolol and Cardizem. Patient is on heart monitor watch for any persistent tachycardia or symptoms. _Severe cervical spine radiculopathy along with mild bulging disc and spinal stenosis: Patient had severe limited mobility at this point and severe pain. Was seen orthopedic had his MRI patient will need more physical therapy will consult anesthesia for possible pain management and epidural injection. _Chronic pain syndrome: Has been on hydrocodone 5/325 mg 3 times a day along with muscle relaxer. _Hypertension: With urgent symptoms sometimes remain on Zestril 20 mg daily, amlodipine 10 mg daily, torsemide or furosemide along with diltiazem CD. _Hyperlipidemia: Continue atorvastatin 20 mg a day. _Urinary retention: Continue Flomax catheter will be removed today. _Previous history of GI bleed with no recurrent bleed at this point remain on omeprazole 20 mg daily. _Hypertension: His blood pressure still slightly low without his DAVID continue Cardizem and spironolactone only. Discussion: Patient is feeling much better still consult with pain management for tomorrow for possible either trigger point or epidural injection and patient is agreeable to probably to go to rehab from here we will continue doing physical therapy as well. Objective - Vital Signs Vital signs: Vital Signs Temp 98.0 F 11/24/23 04:00 Pulse 100 11/24/23 04:00 Resp 18 11/24/23 04:00 BP 134/74 11/24/23 04:00 Pulse Ox 96 11/24/23 04:00 FiO2 Intake & Output 11/23/23 11/23/23 11/24/23 06:59 18:59 06:59 Intake Total 250 792.333 240 Output Total 805 926 0863 Balance -300 142.333 -810 Weight 98 kg Intake: Intake, IV Titration 136.333 Amount Diltiazem 125 mg In 136.333 Sodium Chloride 0.9% 100 ml @ 10 MG/HR 10 mls/hr IV .[id number] [facility] Rx#: [id number] Oral 250 656 240 Output: Urine 117 653 1152 Other: Voiding Method External Catheter External Catheter External Catheter # Bowel Movements 0 - Labs CBC & Chem 7: 11/24/23 10:29 11/24/23 10:29 Labs: Abnormal Lab Results - Last 24 Hours (Table) 11/23/23 11/23/23 Range/Units 09:00 09:00 WBC 11.0 H (3.8-10.6) k/uL RBC 3.40 L (4.30-5.90) m/uL Hgb 11.4 L (13.0-17.5) gm/dL Hct 35.2 L (39.0-53.0) % MCV 103.4 H (80.0-100.0) fL BUN 22 H (9-20) mg/dL Creatinine 0.54 L (0.66-1.25) mg/dL Glucose 159 H (74-99) mg/dL Total Bilirubin 1.7 H (0.2-1.3) mg/dL AST 95 H (17-59) U/L ALT 134 H (4-49) U/L Alkaline Phosphatase 152 H (38-126) U/L Albumin 3.4 L (3.5-5.0) g/dL
[2023-11-24] MEDS: COLCHICINE 0.6 MG EACH PO SCH (17:14)
[2023-11-24] MEDS: bisacodyL 5 MG TABLET.DR PO STA (17:46)
[2023-11-24] MEDS: METOPROLOL TARTRATE 50 MG TAB PO SCH (20:08)
--- NOTE | 2023-11-25 08:12 | P.PN ---
Subjective Progress Note Date: 11/25/23 HISTORY OF PRESENT ILLNESS: 78-year-old woman my office patient with multiple medical problems who is known to have history of A-fib, congestive heart failure, hypertension, hyperl ipidemia, post multiple joint placement, chronic lower back pain post fracture hip, was also suffered from chronic history of anasarca and worsening edema. Patient has been seen cardiology on regular basis was in the hospital last few months ago for worsening dyspnea, shortness of breath and CHF exacerbation require more diuretics. Patient apparently was in the emergency department on Saturday. For significant signs and symptoms of bilateral feet pain along with worsening urination sig nificant change in urine output entire workup did not show any major abnormality and ended up going back home. He presented to the emergency department today complaining of severe edema, bilateral feet pain, and found to have worsening kidney function with GFR quite a bit down compared to 2 days ago. With the above change patient was admitted to the hospital and started on hydration and found to have urinary retention Olve catheter was inserted to watch his urine output and some of his nephrotoxic medication were held initially including diuretics and DAVID resume the rest of his medication will consult nephrology refer patient for ultrasound of the kidney. 11/20/2023: Patient repeat lab had improved significantly with creatinine at 2.03 then 1. 1 GFR is up to 58, magnesium climb up to 1.4 and still doing magnesium placement therapy. Patient was diagnosed with severe hyperuricemia and started on allopurinol repeat uric acid 5 days, also mild hyponatremia with a hydration remain the same. He was seen nephrology agree with the current management plan from holding diuretic encourage oral intake and restrict 15 cc 1500 cc of free water start Aldactone initially continue replaced magnesium. Renal ultrasound will perform and may be a cyst in the upper pole of right kidney with simple cyst in the left kidney with no sign of obstruction. 11/21/2023: Creatinine kidney function almost back to his normal baseline. He still have his Love catheter and tube removed today. He is complaining of severe cervical spine pain and discomfort with severe stiffness along with worsening spasm and discomfort in the bladder area from his catheter. Patient be sent for cervical spine x-ray also his Love catheter will be removed today and to watch patient residual to make sure he is able to void on his own without any retention. Cardiology yesterday start him on spironolactone and patient edema still seem at minimum. His blood pressure is holding well. Again asked physical therapy recreational therapy to work with patient and will ask older adult social work specialist if patient may benefit from going to rehab out to SNF for physical therapy. 11/22/2023: Patient is having significant neck pain and discomfort he is not able to move out of bed, have slight dystonia turning his neck to the right side. Had run his x-ray of the cervical spine and came back with moderate to severe degenerative disc disease in the C5 along with multiple multiple bilateral spinal stenosis. Decided to send patient for MRI of the cervical spine and also to consult orthopedic. Cervical spine came back with mild disc bulging in the C6-7 with left paracentral C3-4 with mild to moderate anterior sac compression. He ended up seeing orthopedic the plan there is no nerve entrapment syndrome causing acute compression syndrome require any immediate surgical intervention asking probably for pain management and physical therapy. With the debility patient has probably require to go to rehab. He is acute kidney injury at this point with a creatinine down to 0.75 with normal BUN stabilized almost back to normal his hypokalemia and hypomagnesemia were replaced and that is mostly from diuretics. As for his congestive heart failure continue to improve gradually. Love catheter was removed today patient is on Flomax hoping to see if patient can void on his own. My conclusion I will think patient is going to be able to go home from here he will require little bit more help with physical therapy he is more than [address] office assistant time. 11/23/2023: Patient is resting comfortably in bed his neck remain extremely sore, physical therapist limited at this point. His Love catheter is out and patient was able to void on his own. Still waiting for uric acid from this morning. He had episode of A-fib with RVR was started on Cardizem drip from last still on anticoagulation still seeing cardiology regularly. His electrolyte imbalance along with kidney function test are much better but his liver function test has gone up a little bit causing his bilirubin ALT and AST to climb up will order an ultrasound of the liver and gallbladder to exclude the possibility of gallbladder stone or common duct stone. I spoke with the today and updated her on what is going on physically p atient will require to go for SNF for more physical therapy and help for at least the next 2 weeks. 11/24/2023: Patient remains slightly but comfortable continue to have significant cervical spine pain and discomfort still having slight dystonia turning his head to the right side with the neck is very stiff. Last 24 hours the continue having slight A-fib with RVR cardiology started him on Cardizem drip initially and move him into Cardizem orally along with increasing his dose of metoprolol to 100 mg daily and initiate Farxiga 5 mg daily. Will add Lasix 20 mg a day as well. Also patient was seen orthopedic which they agreed to continue conservative management by adding Flexeril and PT OT waiting for pain management for possible epidural. Addition patient developed to have significant wrist pain with most likely gout flareup despite uric acid dropped down to 6.0 but in the process probably was having more mobilization of uric acid reason why was 11 came down little bit fast with the allopurinol but that can drive patient to having gout for use for few days colchicine to reduce the side effect and complaint. 11/25/2023: Patient had gout flareup in the right wrist area was started on colchicine for total of 3 days, uric acid dropped down to 6.0 on allopurinol 200 mg daily. Patient is still waiting to see pain management for possible cervical epidural injection. He is sitting on the side of bed which is for his dystonia and severe neck pain is much better. Kidney function has improved significantly since his admission and all electrolyte imbalance has improved. Titrate physical therapy and still working with the older adult social work specialist for possible getting him to [facility] by later today or tomorrow. I hope patient will see pain management if he does epidural injection of the cervical spine will help his mobility significantly will make the transfer to [facility] and expectation with his rehab much more useful. REVIEW OF SYSTEMS: CONSTITUTIONAL: Well-developed no acute respiratory distress. EYES: No icterus sclerae, no conjunctivitis. EARS, NOSE, MOUTH, THROAT, and FACE: No sore throat, lymphadenopathy, carotid bruits or deformity. RESPIRATORY: Mild shortness of breath no cough or wheezes. CARDIOVASCULAR: Positive PND orthopnea palpitation no angina. GASTROINTESTINAL: Distended abdomen with slight nausea constipation. GENITOURINARY: Decreased urine output with mild irritation burning and discomfort. INTEGUMENT/BREAST: Negative for any muscular injury with mild osteoarthritis.. HEMATOLOGIC/LYMPHATIC: Negative for bleed or purpura. MUSCULOSKELTAL: Chronic arthralgia and myalgia. NEURLOGICAL: No LOC, Sz or syncope, blurred vision dizziness or abnormality.. BEHAVIORAL/PSYCH: Negative. ENDOCRINE: Negative. PHYSICAL EXAMINATION: General Appearance: Alert, cooperative, no distress, seems slight discomfort laying in bed. Neck HEENT: Supple, no lymphadenopathy, no thyroid enlargement, no carotid br uits. Lungs: Decreased breath sound the bases positive rhonchi slight crackles in the right base. Chest Wall: Decreased expansion with deep inspiration no tenderness and no deformity was found on exam, no costochondral pain or discomfort. Heart: Irregular rate and rhythm, S1, S2 positive S3 positive systolic murmur. Back: Symmetric, no curvature, ROM normal, severe scoliosis with slight CVA tenderness with scar tissue from previous surgery. Abdomen: Soft, non-tender, bowel sounds active all four quadrants, no masses, no organomegaly. Slight distended abdomen. Mild discomfort in the right upper quadrant area. Extremities: Extremities normal, atraumatic, no cyanosis positive edema 1-2+ lower extremity worse on the right of the left side. Foot exam shows slight warmness discomfort and swelling with chronic edema. Pulses: 2+ and symmetric. Skin: Skin color, texture, tugor normal, no rashes or lesions. Neurologic: Alert oriented x3 cranial nerves II through XII intact, no motor deficit, no abnormal balance or gait. ASSESSMENT AND PLAN: _Acute kidney injury: His GFR with kidney function are back to normal. Continue to avoid any nephrotoxic agent. Doing so well waiting for his kidney function from today. _Severe electrolyte imbalance including severe hypomagnesemia, hypokalemia: All electrolyte imbalance resolved back to normal. _Severe hyperuricemia: He is to continue allopurinol uric acid was down to 6.0. Developed to have gout in the wrist will add colchicine for 3 days. _A-fib with RVR: He is back on Cardizem orally along with metoprolol 100 mg daily and added slight Farxiga for improvement of the ventricle contractility. With adjustment of his medication by cardiology he is back on Cardizem orally at 120 mg daily. _Abnormal liver function test: With a current finding liver ultrasound was positive for gallbladder sludge patient is not having any flareup we can await chronic eventually patient might require to have gallbladder surgery. _Acute on chronic diastolic congestive heart failure: Has been on diuretics echocardiograms up-to-date still seen cardiology regular basis. _Persistent A-fib: Will continue on Eliquis along with beta-alexy with atenolol and Cardizem. Patient is on heart monitor watch for any persistent tachycardia or symptoms. _Severe cervical spine radiculopathy along with mild bulging disc and spinal stenosis: Patient had severe limited mobility at this point and severe pain. Was seen orthopedic had his MRI patient will need more physical therapy, still waiting for pain management for epidural today hopefully. _Chronic pain syndrome: Has been on hydrocodone 5/325 mg 3 times a day along with muscle relaxer. _Hypertension: With urgent symptoms sometimes remain on Zestril 20 mg daily, amlodipine 10 mg daily, torsemide or furosemide along with diltiazem CD. _Hyperlipidemia: Continue atorvastatin 20 mg a day. _Urinary retention: Continue Flomax catheter will be removed today. _Previous history of GI bleed with no recurrent bleed at this point remain on omeprazole 20 mg daily. _Hypertension: His blood pressure still slightly low without his DAVID continue Cardizem and spironolactone only. Prognosis: Fair. Discussion: Still waiting to see pain management for possible epidural, patient titrate physical therapy and expect probably to make it to [facility] either today late for tomorrow morning. Objective - Vital Signs Vital signs: Vital Signs Temp 98.4 F 11/25/23 02:52 Pulse 76 11/25/23 02:52 Resp 18 11/25/23 02:52 BP 126/74 11/25/23 02:52 Pulse Ox 96 11/25/23 02:52 FiO2 Intake & Output 11/24/23 11/24/23 11/25/23 06:59 18:59 06:59 Intake Total 240 236 0 Output Total 9499 424 7331 Balance -810 -274 -1000 Intake: Oral 240 236 0 Output: Urine 0065 355 9564 Other: Voiding Method External Catheter Urinal # Voids 1 1 - Labs CBC & Chem 7: 11/24/23 10:29 11/24/23 10:29 Labs: Abnormal Lab Results - Last 24 Hours (Table) 11/24/23 11/24/23 Range/Units 10:29 10:29 RBC 3.16 L (4.30-5.90) m/uL Hgb 10.7 L (13.0-17.5) gm/dL Hct 32.7 L (39.0-53.0) % MCV 103.5 H (80.0-100.0) fL Sodium 135 L (137-145) mmol/L BUN 24 H (9-20) mg/dL Glucose 135 H (74-99) mg/dL Total Bilirubin 1.4 H (0.2-1.3) mg/dL AST 302 H (17-59) U/L ALT 364 H (4-49) U/L Alkaline Phosphatase 169 H (38-126) U/L Total Protein 5.8 L (6.3-8.2) g/dL Albumin 3.1 L (3.5-5.0) g/dL
[2023-11-25 08:31] LABS: Basophils # (A) 0.1 k/uL (0-0.2); Basophils % (A) 1 %; Eosinophils # (A) 0.3 k/uL (0-0.7); Eosinophils % (A) 2 %; HCT 37.7 % (39.0-53.0); Hypochromasia Slight; Lymphocytes # (A) 2.3 k/uL (1.0-4.8); Lymphocytes % (A) 21 %; MCH 33.4 pg (25.0-35.0); MCHC 31.9 g/dL (31.0-37.0); MCV 104.6 fL (80.0-100.0); Macrocytosis Slight; Mean Platelet Volume 8.8; Monocytes # (A) 0.7 k/uL (0-1.0); Monocytes % (A) 6 %; Neutrophils # (A) 7.4 k/uL (1.3-7.7); Neutrophils % (A) 68 %; Platelet Count 337 k/uL (150-450); RDW 13.7 % (11.5-15.5); WBC 10.9 k/uL (3.8-10.6)
[2023-11-25 08:38] LABS: ALT 427 U/L (4-49); AST 254 U/L (17-59); African American GFR (CKD) >90 (>60 ml/min/1.73 sqM); Albumin 3.5 g/dL (3.5-5.0); Alkaline Phosphatase 223 U/L (38-126); Anion Gap 9 mmol/L; Blood Urea Nitrogen 23 mg/dL (9-20); Carbon Dioxide 25 mmol/L (22-30); Chloride 103 mmol/L (98-107); Glucose 96 mg/dL (74-99); Magnesium 1.8 mg/dL (1.6-2.3); Non-African American GFR(CKD) >90 (>60 ml/min/1.73 sqM); Potassium 4.2 mmol/L (3.5-5.1); Sodium 137 mmol/L (137-145); Total Bilirubin 1.4 mg/dL (0.2-1.3); Total Protein 6.6 g/dL (6.3-8.2)
[2023-11-25] MEDS: DILTIAZEM ORAL 60 MG TAB PO STA (10:08)
--- NOTE | 2023-11-25 11:43 | P.PN ---
Subjective This is a 78-year-old male patient of Dr. Ashofrd with a past medical history significant for permanent atrial fibrillation on eliquis, hypertension, chronic diastolic heart failure, chronic kidney disease, mild aortic valve stenosis and GERD. We have been asked to see the patient in consultation for pedal edema. The patient presented to the hospital with a chief complaint of swelling in the lower extremities. He denies having any chest pain, no shortness of breath. Patient was admitted to the cardiac stepdown unit and diuretics, lisinopril, torsemide, metolazone and amlodipine have all been on hold. Patient states the lower extremity edema is improved. Patient has required Love catheter placement for urinary retention. Replacement of magnesium and potassium in progress and patient is been started on IV fluids per nephrology. EKG reveals A. fib with heart rate 95 Chest xray no acute findings. Laboratory data: WBC 16, hemoglobin 11.2, platelet count 226. INR 1.2. Sodium 133, potassium 3.2, chloride 97, CO2 22, BUN 53 and creatinine 2.03 down from 2.92 of yesterday. Troponin negative x 1. Liver function test are normal. p roBNP 3600. Urinalysis was negative. Initial magnesium 0.4 followed by 1.3. Current home cardiac medications include amlodipine 10 mg daily, Eliquis 5 mg twice a day, atenolol 100 mg daily, atorvastatin 20 mg daily, Cardizem CD 300 mg daily, Lasix 40 mg in the morning and 20 mg in the afternoon, lisinopril 20 mg daily, magnesium oxide 400 mg twice daily, metolazone 5 mg daily, torsemide 20 mg daily Echocardiogram completed 02/12/2023 reveals EF of 55 to 60%, mild TR. Lexiscan Cardiolite stress test performed on 10/11/2022 revealed negative by EKG criteria. Probably normal myocardial perfusion and function. 11/20 Heart rate is running in the 70s and 80s, blood pressure 108/62, pulse ox 95% on room air. Yesterday we transition atenolol to metoprolol tartrate and discontinued Cardizem CD, added Aldactone. He did have a low blood pressure yesterday of 74/59 which seems to have recovered. Repeat blood work reveals WBC 11.7, hemoglobin 10.7. Sodium 136, potassium 3.7, BUN 34 creatinine 0.75. November 23, 2023 Last night patient was going into atrial fibrillation with RVR therefore c ardiology was reconsulted. This morning his rates are better controlled on Cardizem drip. I will discontinue his Cardizem drip and start him on p.o. Cardizem. I will also increase his metoprolol to 100 mg twice daily because his blood pressure can tolerate it. To reduce his intracardiac pressures I would start him on Farxiga 5 mg daily. He would also benefit from a low-dose Lasix like 20 mg to be started from tomorrow. November 24, 2023 Patient reports that he has not had any bowel movement in last 4 to 5 days. He has not been out of his bed much. His heart rates are ranging from 80s to 110 bpm continues to be in persistent chronic atrial fibrillation. Regarding fluid status he does not appear significantly volume overloaded. November 25, 2023 Patient examined this morning at the bedside. Denies chest pain or pressure. He denies shortness of breath. He remains in atrial fibrillation with heart rate in the 130s this morning. Blood pressure stable. PHYSICAL EXAM: VITAL SIGNS: Reviewed. GENERAL: Well-developed in no acute distress. NECK: Supple. No JVD or thyromegaly LUNGS: Respirations even and unlabored. Lungs essentially clear to auscultation bilaterally. HEART: Tachycardic. Irregular rate and rhythm. S1 and S2 heard. EXTREMITIES: Normal range of motion. No clubbing or cyanosis. Peripheral pulses intact. No lower extremity edema ASSESSMENT: Acute kidney injury, creatinine 2.92 on admission, resolved Chronic diastolic heart failure, currently euvolemic Permanent atrial fibrillation with RVR Hypertension GERD Former nicotine dependence Episode of hypotension, resolved PLAN: Continue current cardiac medications Continue current dose of metoprolol Increase Cardizem CD to 180 mg daily Continue telemetry monitoring Further recommendations pending patient course Nurse practitioner note has been reviewed by physician. Signing provider agrees with the documented findings, assessment, and plan of care documented by [employer] SITE ANALYST as a scribe. Objective - Vital Signs Vital signs: Vital Signs Temp 97.8 F 11/25/23 07:36 Pulse 100 11/25/23 10:04 Resp 18 11/25/23 07:36 BP 120/77 11/25/23 07:36 Pulse Ox 99 11/25/23 07:36 FiO2 Intake & Output 11/24/23 11/25/23 11/25/23 18:59 06:59 18:59 Intake Total 236 0 240 Output Total 900 1400 Balance -664 -1400 240 Weight 94.5 kg Intake: Oral 236 0 240 Output: Urine 900 1400 Other: Voiding Method Urinal Urinal # Voids 1 1 - Labs CBC & Chem 7: 11/25/23 07:12 11/25/23 07:12 Labs: Abnormal Lab Results - Last 24 Hours (Table) 11/25/23 11/25/23 Range/Units 07:12 07:12 WBC 10.9 H (3.8-10.6) k/uL RBC 3.60 L (4.30-5.90) m/uL Hgb 12.0 L (13.0-17.5) gm/dL Hct 37.7 L (39.0-53.0) % MCV 104.6 H (80.0-100.0) fL BUN 23 H (9-20) mg/dL Creatinine 0.61 L (0.66-1.25) mg/dL Total Bilirubin 1.4 H (0.2-1.3) mg/dL AST 254 H (17-59) U/L ALT 427 H (4-49) U/L Alkaline Phosphatase 223 H (38-126) U/L
--- NOTE | 2023-11-26 08:38 | P.DS ---
Providers Date of admission: 11/19/23 14:22 Attending physician: Chris Rice Consults: 11/19/23 14:18 Consult Physician Urgent Consulting Provider: [facility] Consult Reason/Comments: Pedal edema Do you want consulting provider notified?: Yes 11/19/23 15:08 Consult Physician Urgent Consulting Provider: Tucker Solis Consult Reason/Comments: Acute renal failure Do you want consulting provider notified?: Yes 11/22/23 08:08 Consult Physician Routine Consulting Provider: Whitley Sigala Consult Reason/Comments: C spine Epidural Do you want consulting provider notified?: Yes 11/22/23 12:34 Consult Physician Routine Consulting Provider: Fer Davidson Consult Reason/Comments: c spine disc and spinal stenosis Do you want consulting provider notified?: Yes 11/23/23 01:51 Consult Physician Routine Consulting Provider: Pj Garcia Consult Reason/Comments: Afib RVR Do you want consulting provider notified?: Already Contacted Primary care physician: [facility] Hospital Course: HISTORY OF PRESENT ILLNESS: 78-year-old woman my office patient with multiple medical problems who is known to have history of A-fib, congestive heart failure, hypertension, hyperlipidemia, post multiple joint placement, chronic lower back pain post fracture hip, was also suffered from chronic history of anasarca and worsening edema. Patient has been seen cardiology on regular basis was in the hospital last few months ago for worsening dyspnea, shortness of breath and CHF exacerbation require more diuretics. Patient apparently was in the emergency department on Saturday. For significant signs and symptoms of bilateral feet pain along with worsening urination significant change in urine output entire workup did not show any major abnormality and ended up going back home. He presented to the emergency department today complaining of severe edema, bilateral feet pain, and found to have worsening kidney function with GFR quite a bit down compared to 2 days ago. With the above change patient was admitted to the hospital and started on hydration and found to have urinary retention Love catheter was inserted to watch his urine output and some of his nephrotoxic medication were held initially including diuretics and DAVID resume the rest of his medication will consult nephrology refer patient for ultrasound of the kidney. 11/20/2023: Patient repeat lab had improved significantly with creatinine at 2.03 then 1. 1 GFR is up to 58, magnesium climb up to 1.4 and still doing magnesium placement therapy. Patient was diagnosed with severe hyperuricemia and started on allopurinol repeat uric acid 5 days, also mild hyponatremia with a hydration remain the same. He was seen nephrology agree with the current management plan from holding diuretic encourage oral intake and restrict 15 cc 1500 cc of free water start Aldactone initially continue replaced magnesium. Renal ultrasound will perform and may be a cyst in the upper pole of right kidney with simple cyst in the left kidney with no sign of obstruction. 11/21/2023: Creatinine kidney function almost back to his normal baseline. He still have his Love catheter and tube removed today. He is complaining of severe cervical spine pain and discomfort with severe stiffness along with worsening spasm and discomfort in the bladder area from his catheter. Patient be sent for cervical spine x-ray also his Love catheter will be removed today and to watch patient residual to make sure he is able to void on his own without any retention. Cardiology yesterday start him on spironolactone and patient edema still seem at minimum. His blood pressure is holding well. Again asked physical therapy recreational therapy to work with patient and will ask hospice social worker if patient may benefit from going to rehab out to SNF for physical therapy. 11/22/2023: Patient is having significant neck pain and discomfort he is not able to move out of bed, have slight dystonia turning his neck to the right side. Had run his x-ray of the cervical spine and came back with moderate to severe degenerative disc disease in the C5 along with multiple multiple bilateral spinal stenosis. Decided to send patient for MRI of the cervical spine and also to consult orthopedic. Cervical spine came back with mild disc bulging in the C6-7 with left paracentral C3-4 with mild to moderate anterior sac compression. He ended up seeing orthopedic the plan there is no nerve entrapment syndrome causing acute compression syndrome require any immediate surgical intervention asking probably for pain management and physical therapy. With the debility patient has probably require to go to rehab. He is acute kidney injury at this point with a creatinine down to 0.75 with normal BUN stabilized almost back to normal his hypokalemia and hypomagnesemia were replaced and that is mostly from diuretics. As for his congestive heart failure continue to improve gradually. Love catheter was removed today patient is on Flomax hoping to see if patient can void on his own. My conclusion I will think patient is going to be able to go home from here he will require little bit more help with physical therapy he is more than 1 person laboratory assistant time. 11/23/2023: Patient is resting comfortably in bed his neck remain extremely sore, physical therapist limited at this point. His Love catheter is out and patient was able to void on his own. Still waiting for uric acid from this morning. He had episode of A-fib with RVR was started on Cardizem drip from last still on anticoagulation still seeing cardiology regularly. His electrolyte imbalance along with kidney function test are much better but his liver function test has gone up a little bit causing his bilirubin ALT and AST to climb up will order an ultrasound of the liver and gallbladder to exclude the possibility of gallbladder stone or common duct stone. I spoke with the today and updated her on what is going on physically patient will require to go for SNF for more physical therapy and help for at least the next 2 weeks. 11/24/2023: Patient remains slightly but comfortable continue to have significant cervical spine pain and discomfort still having slight dystonia turning his head to the right side with the neck is very stiff. Last 24 hours the continue having slight A-fib with RVR cardiology started him on Cardizem drip initially and move him into Cardizem orally along with increasing his dose of metoprolol to 100 mg daily and initiate Farxiga 5 mg daily. Will add Lasix 20 mg a day as well. Also patient was seen orthopedic which they agreed to continue conservative management by adding Flexeril and PT OT waiting for pain management for possible epidural. Addition patient developed to have significant wrist pain with most likely gout flareup despite uric acid dropped down to 6.0 but in the process probably was having more mobilization of uric acid reason why was 11 came down little bit fast with the allopurinol but that can drive patient to having gout for use for few days colchicine to reduce the side effect and complaint. 11/25/2023: Patient had gout flareup in the right wrist area was started on colchicine for total of 3 days, uric acid dropped down to 6.0 on allopurinol 200 mg daily. Patient is still waiting to see pain management for possible cervical epidural injection. He is sitting on the side of bed which is for his dystonia and severe neck pain is much better. Kidney function has improved significantly since his admission and all electrolyte imbalance has improved. Titrate physical therapy and still working with the hospice social worker for possible getting him to [facility] by later today or tomorrow. I hope patient will see pain management if he does epidural injection of the cervical spine will help his mobility significantly will make the transfer to [facility] and expectation with his rehab much more useful. REVIEW OF SYSTEMS: CONSTITUTIONAL: Well-developed no acute respiratory distress. EYES: No icterus sclerae, no conjunctivitis. EARS, NOSE, MOUTH, THROAT, and FACE: No sore throat, lymphadenopathy, carotid br uits or deformity. RESPIRATORY: Mild shortness of breath no cough or wheezes. CARDIOVASCULAR: Positive PND orthopnea palpitation no angina. GASTROINTESTINAL: Distended abdomen with slight nausea constipation. GENITOURINARY: Decreased urine output with mild irritation burning and discomfort. INTEGUMENT/BREAST: Negative for any muscular injury with mild osteoarthritis.. HEMATOLOGIC/LYMPHATIC: Negative for bleed or purpura. MUSCULOSKELTAL: Chronic arthralgia and myalgia. NEURLOGICAL: No LOC, Sz or syncope, blurred vision dizziness or abnormality.. BEHAVIORAL/PSYCH: Negative. ENDOCRINE: Negative. PHYSICAL EXAMINATION: General Appearance: Alert, cooperative, no distress, seems slight discomfort laying in bed. Neck HEENT: Supple, no lymphadenopathy, no thyroid enlargement, no carotid bruits. Lungs: Decreased breath sound the bases positive rhonchi slight crackles in the right base. Chest Wall: Decreased expansion with deep inspiration no tenderness and no deformity was found on exam, no costochondral pain or discomfort. Heart: Irregular rate and rhythm, S1, S2 positive S3 positive systolic murmur. Back: Symmetric, no curvature, ROM normal, severe scoliosis with slight CVA tenderness with scar tissue from previous surgery. Abdomen: Soft, non-tender, bowel sounds active all four quadrants, no masses, no organomegaly. Slight distended abdomen. Mild discomfort in the right upper quadrant area. Extremities: Extremities normal, atraumatic, no cyanosis positive edema 1-2+ lower extremity worse on the right of the left side. Foot exam shows slight warmness discomfort and swelling with chronic edema. Pulses: 2+ and symmetric. Skin: Skin color, texture, tugor normal, no rashes or lesions. Neurologic: Alert oriented x3 cranial nerves II through XII intact, no motor deficit, no abnormal balance or gait. ASSESSMENT AND PLAN: _Acute kidney injury: His GFR with kidney function are back to normal. Continue to avoid any nephrotoxic agent. Doing so well waiting for his kidney function from today. _Severe electrolyte imbalance including severe hypomagnesemia, hypokalemia: All electrolyte imbalance resolved back to normal. _Severe hyperuricemia: He is to continue allopurinol uric acid was down to 6.0. Developed to have gout in the wrist will add colchicine for 3 days. _A-fib with RVR: He is back on Cardizem orally along with metoprolol 100 mg daily and added slight Farxiga for improvement of the ventricle contractility. With adjustment of his medication by cardiology he is back on Cardizem orally at 120 mg daily. _Abnormal liver function test: With a current finding liver ultrasound was positive for gallbladder sludge patient is not having any flareup we can await chronic eventually patient might require to have gallbladder surgery. _Acute on chronic diastolic congestive heart failure: Has been on diuretics echocardiograms up-to-date still seen cardiology regular basis. _Persistent A-fib: Will continue on Eliquis along with beta-alexy with atenolol and Cardizem. Patient is on heart monitor watch for any persistent tachycardia or symptoms. _Severe cervical spine radiculopathy along with mild bulging disc and spinal stenosis: Patient had severe limited mobility at this point and severe pain. Was seen orthopedic had his MRI patient will need more physical therapy, still waiting for pain management for epidural today hopefully. _Chronic pain syndrome: Has been on hydrocodone 5/325 mg 3 times a day along with muscle relaxer. _Hypertension: With urgent symptoms sometimes remain on Zestril 20 mg daily, amlodipine 10 mg daily, torsemide or furosemide along with diltiazem CD. _Hyperlipidemia: Continue atorvastatin 20 mg a day. _Urinary retention: Continue Flomax catheter will be removed today. _Previous history of GI bleed with no recurrent bleed at this point remain on omeprazole 20 mg daily. _Hypertension: His blood pressure still slightly low without his DAVID continue Cardizem and spironolactone only. Prognosis: Fair. Hospital course: Patient was admitted on 11/19/2023 with significant problems consistent with acute kidney injury along with severe electrolyte imbalance and found to have severe hyperuricemia also he was in A-fib with RVR required adjustment on his medication. And in the following few days found to have severe dystonia with significant pain and discomfort in the cervical spine MRI of the cervical spine shows 1 bulging disc to area of severe spinal stenosis was seen orthopedic and the plan was to do conservative management with physical therapy pain management. Consult pain management for possible epidural injection sadly patient is on Eliquis and did not see the need to do any epidural injection of the cervical spine yet. Also earlier had significant pulmonary retention required Love catheter and ended up coming out patient is able to void on his own. His pain management slightly better today patient confusion has improved his electrolyte balance is much better uric acid was treated and down to 6.0 had flareup with gout in his wrist was treated with colchicine for 3 days and done well. Patient started PT OT will be discharged to [facility] today for rehab. Time spent on discharging patient was over 35 minutes. Plan - Discharge Summary Discharge Rx Participant: No New Discharge Prescriptions: New Cyclobenzaprine [Flexeril] 5 mg PO HS tab Metoprolol Tartrate [Lopressor] 150 mg PO BID tab Digoxin [Digitek] 125 mcg PO DAILY #30 tab Spironolactone [Aldactone] 25 mg PO DAILY tab Dapagliflozin Propanediol [Farxiga] 5 mg PO DAILY tab Furosemide [Lasix] 20 mg PO DAILY tab Baclofen [Lioresal] 10 mg PO TID PRN tab PRN Reason: Mild Pain (Scale 1 To 3) HYDROcodone/APAP 10-325MG [Acme 10-325] 1 tab PO Q6HR PRN 3 Days #20 tab PRN Reason: Mild To Moderate Pain (1 - 6) allopurinoL [Zyloprim] 200 mg PO DAILY tab Diltiazem Cd [Cardizem CD] 240 mg PO DAILY #30 cap Continue Omeprazole 20 mg PO DAILY Atorvastatin [Lipitor] 20 mg PO DAILY Apixaban [Eliquis] 5 mg PO DIRECTED Loratadine [Claritin] 10 mg PO DAILY lisinopriL [Zestril] 20 mg PO DAILY Magnesium Oxide [Magox 400] 400 mg PO BID Discontinued Diltiazem Cd [Cardizem CD] 300 mg PO DAILY Atenolol 100 mg PO DAILY HYDROcodone/APAP 5-325MG [Acme 5-325] 1 tab PO TID PRN PRN Reason: Pain Furosemide [Lasix] 20 mg PO DAILY amLODIPine [Norvasc] 10 mg PO DAILY Torsemide [Soaanz] 20 mg PO DAILY Ibuprofen [Motrin] 800 mg PO TID PRN PRN Reason: Pain Furosemide [Lasix] 40 mg PO DAILY metOLazone [Zaroxolyn] 5 mg PO DAILY Sildenafil Citrate [Sildenafil] 20 mg PO DAILY PRN PRN Reason: e.d. Discharge Medication List Omeprazole 20 mg PO DAILY 01/02/19 [History] Atorvastatin [Lipitor] 20 mg PO DAILY 09/22/21 [History] lisinopriL [Zestril] 20 mg PO DAILY 10/18/21 [History] Apixaban [Eliquis] 5 mg PO DIRECTED 11/19/23 [History] Loratadine [Claritin] 10 mg PO DAILY 11/19/23 [History] Magnesium Oxide [Magox 400] 400 mg PO BID 11/19/23 [History] Baclofen [Lioresal] 10 mg PO TID PRN tab 11/26/23 [Rx] Cyclobenzaprine [Flexeril] 5 mg PO HS tab 11/26/23 [Rx] Dapagliflozin Propanediol [Farxiga] 5 mg PO DAILY tab 11/26/23 [Rx] Digoxin [Digitek] 125 mcg PO DAILY #30 tab 11/26/23 [Rx] Diltiazem Cd [Cardizem CD] 240 mg PO DAILY #30 cap 11/26/23 [Rx] Furosemide [Lasix] 20 mg PO DAILY tab 11/26/23 [Rx] HYDROcodone/APAP 10-325MG [Acme 10-325] 1 tab PO Q6HR PRN 3 Days #20 tab 11/26/23 [Rx] Metoprolol Tartrate [Lopressor] 150 mg PO BID tab 11/26/23 [Rx] Spironolactone [Aldactone] 25 mg PO DAILY tab 11/26/23 [Rx] allopurinoL [Zyloprim] 200 mg PO DAILY tab 11/26/23 [Rx] Follow up Appointment(s)/Referral(s): Chris Rice MD [Primary Care Provider] - 1-2 days Fer Davidson DO [Doctor of Osteopathic Medicine] - As Needed José Manuel Ashford MD [STAFF PHYSICIAN] - 1 Week Patient Instructions/Handouts: Low Purine Diet (GEN) Discharge Disposition: TRANSFER TO SNF/ECF
[2023-11-26] MEDS: DILTIAZEM CD 180 MG CAP.ER.24H PO SCH (10:12)
[2023-11-26] MEDS: DIGOXIN 125 MCG TAB PO SCH (10:58)
[2023-11-26 12:07] VITALS: BP 90/59; PULSE 100; RESP 16; TEMP 97.5
--- NOTE | 2023-11-26 12:14 | P.PN ---
Subjective This is a 78-year-old male patient of Dr. Ashford with a past medical history significant for permanent atrial fibrillation on eliquis, hypertension, chronic diastolic heart failure, chronic kidney disease, mild aortic valve stenosis and GERD. We have been asked to see the patient in consultation for pedal edema. The patient presented to the hospital with a chief complaint of swelling in the lower extremities. He denies having any chest pain, no shortness of breath. Patient was admitted to the cardiac stepdown unit and diuretics, lisinopril, torsemide, metolazone and amlodipine have all been on hold. Patient states the lower extremity edema is improved. Patient has required Love catheter placement for urinary retention. Replacement of magnesium and potassium in progress and patient is been started on IV fluids per nephrology. EKG reveals A. fib with heart rate 95 Chest xray no acute findings. Laboratory data: WBC 16, hemoglobin 11.2, platelet count 226. INR 1.2. Sodium 133, potassium 3.2, chloride 97, CO2 22, BUN 53 and creatinine 2.03 down from 2.92 of yesterday. Troponin negative x 1. Liver function test are normal. p roBNP 3600. Urinalysis was negative. Initial magnesium 0.4 followed by 1.3. Current home cardiac medications include amlodipine 10 mg daily, Eliquis 5 mg twice a day, atenolol 100 mg daily, atorvastatin 20 mg daily, Cardizem CD 300 mg daily, Lasix 40 mg in the morning and 20 mg in the afternoon, lisinopril 20 mg daily, magnesium oxide 400 mg twice daily, metolazone 5 mg daily, torsemide 20 mg daily Echocardiogram completed 02/12/2023 reveals EF of 55 to 60%, mild TR. Lexiscan Cardiolite stress test performed on 10/11/2022 revealed negative by EKG criteria. Probably normal myocardial perfusion and function. 11/20 Heart rate is running in the 70s and 80s, blood pressure 108/62, pulse ox 95% on room air. Yesterday we transition atenolol to metoprolol tartrate and discontinued Cardizem CD, added Aldactone. He did have a low blood pressure yesterday of 74/59 which seems to have recovered. Repeat blood work reveals WBC 11.7, hemoglobin 10.7. Sodium 136, potassium 3.7, BUN 34 creatinine 0.75. November 23, 2023 Last night patient was going into atrial fibrillation with RVR therefore c ardiology was reconsulted. This morning his rates are better controlled on Cardizem drip. I will discontinue his Cardizem drip and start him on p.o. Cardizem. I will also increase his metoprolol to 100 mg twice daily because his blood pressure can tolerate it. To reduce his intracardiac pressures I would start him on Farxiga 5 mg daily. He would also benefit from a low-dose Lasix like 20 mg to be started from tomorrow. November 24, 2023 Patient reports that he has not had any bowel movement in last 4 to 5 days. He has not been out of his bed much. His heart rates are ranging from 80s to 110 bpm continues to be in persistent chronic atrial fibrillation. Regarding fluid status he does not appear significantly volume overloaded. November 25, 2023 Patient examined this morning at the bedside. Denies chest pain or pressure. He denies shortness of breath. He remains in atrial fibrillation with heart rate in the 130s this morning. Blood pressure stable. 11/26/2023 Patient examined today at the bedside. Patient denies chest pain or pressure. He denies shortness of breath. He remains in atrial fibrillation. Heart rates are better controlled today although he is still having episodes of tachycardia. PHYSICAL EXAM: VITAL SIGNS: Reviewed. GENERAL: Well-developed in no acute distress. NECK: Supple. No JVD or thyromegaly LUNGS: Respirations even and unlabored. Lungs essentially clear to auscultation bilaterally. HEART: Tachycardic. Irregular rate and rhythm. S1 and S2 heard. EXTREMITIES: Normal range of motion. No clubbing or cyanosis. Peripheral pulses intact. No lower extremity edema ASSESSMENT: Acute kidney injury, creatinine 2.92 on admission, resolved Chronic diastolic heart failure, currently euvolemic Permanent atrial fibrillation with RVR Hypertension GERD Former nicotine dependence Episode of hypotension, resolved PLAN: Continue current cardiac medications Increase Cardizem CD to 240 mg daily Add digoxin 125 mcg daily Continue telemetry monitoring Patient is stable from a cardiac standpoint Further recommendations pending patient course Nurse practitioner note has been reviewed by physician. Signing provider agrees with the documented findings, assessment, and plan of care documented by MACHINE DESIGN ENGINEER as a scribe. Objective - Vital Signs Vital signs: Vital Signs Temp 97.5 F L 11/26/23 11:44 Pulse 100 11/26/23 11:44 Resp 16 11/26/23 11:44 BP 90/59 11/26/23 11:44 Pulse Ox 98 11/26/23 11:44 FiO2 Intake & Output 11/25/23 11/26/23 11/26/23 18:59 06:59 18:59 Intake Total 830 1020 Output Total 300 Balance 830 720 Intake: Oral 830 1020 Output: Urine 300 Other: Voiding Method Urinal Urinal # Voids 1 # Bowel Movements 1 - Labs CBC & Chem 7: 11/25/23 07:12 11/25/23 07:12
[2023-11-26 13:41] VITALS: BMI 29.0
--- NOTE | 2023-11-26 13:45 | P.PN ---
Progress Note - Text Progress Note Date: 11/26/23 Was consulted to evaluate the neck and radiculopathy, I spoke with the patients as the patient was asleep and pretty sedated. The reported the neck pain was on the left side mostly over the trapezius without any radiation to the arm, no arm weakness and has been a new finding since being in the hospital. I reviewed the MRI, x rays and notes. The patient is on anti-coagulation and the risks of stopping need to be weighed. I do not believe an epidural injection will be of great benefit to him at this point. I believe rehab will be of benefit and muscle relaxants, massage therapy as well. No intervention is planned for the hospital stay. the was agreeable with the plan and will follow up with the pain clinic if needed. Didier Judge MD.
--- NOTE | 2023-11-26 22:35 | P.PN ---
Subjective Progress Note Date: 11/26/23 HISTORY OF PRESENT ILLNESS: 78-year-old woman my office patient with multiple medical problems who is known to have history of A-fib, congestive heart failure, hypertension, hyperl ipidemia, post multiple joint placement, chronic lower back pain post fracture hip, was also suffered from chronic history of anasarca and worsening edema. Patient has been seen cardiology on regular basis was in the hospital last few months ago for worsening dyspnea, shortness of breath and CHF exacerbation require more diuretics. Patient apparently was in the emergency department on Saturday. For significant signs and symptoms of bilateral feet pain along with worsening urination sig nificant change in urine output entire workup did not show any major abnormality and ended up going back home. He presented to the emergency department today complaining of severe edema, bilateral feet pain, and found to have worsening kidney function with GFR quite a bit down compared to 2 days ago. With the above change patient was admitted to the hospital and started on hydration and found to have urinary retention Love catheter was inserted to watch his urine output and some of his nephrotoxic medication were held initially including diuretics and DAVID resume the rest of his medication will consult nephrology refer patient for ultrasound of the kidney. 11/20/2023: Patient repeat lab had improved significantly with creatinine at 2.03 then 1. 1 GFR is up to 58, magnesium climb up to 1.4 and still doing magnesium placement therapy. Patient was diagnosed with severe hyperuricemia and started on allopurinol repeat uric acid 5 days, also mild hyponatremia with a hydration remain the same. He was seen nephrology agree with the current management plan from holding diuretic encourage oral intake and restrict 15 cc 1500 cc of free water start Aldactone initially continue replaced magnesium. Renal ultrasound will perform and may be a cyst in the upper pole of right kidney with simple cyst in the left kidney with no sign of obstruction. 11/21/2023: Creatinine kidney function almost back to his normal baseline. He still have his Love catheter and tube removed today. He is complaining of severe cervical spine pain and discomfort with severe stiffness along with worsening spasm and discomfort in the bladder area from his catheter. Patient be sent for cervical spine x-ray also his Love catheter will be removed today and to watch patient residual to make sure he is able to void on his own without any retention. Cardiology yesterday start him on spironolactone and patient edema still seem at minimum. His blood pressure is holding well. Again asked physical therapy recreational therapy to work with patient and will ask geriatric social work professor if patient may benefit from going to rehab out to SNF for physical therapy. 11/22/2023: Patient is having significant neck pain and discomfort he is not able to move out of bed, have slight dystonia turning his neck to the right side. Had run his x-ray of the cervical spine and came back with moderate to severe degenerative disc disease in the C5 along with multiple multiple bilateral spinal stenosis. Decided to send patient for MRI of the cervical spine and also to consult orthopedic. Cervical spine came back with mild disc bulging in the C6-7 with left paracentral C3-4 with mild to moderate anterior sac compression. He ended up seeing orthopedic the plan there is no nerve entrapment syndrome causing acute compression syndrome require any immediate surgical intervention asking probably for pain management and physical therapy. With the debility patient has probably require to go to rehab. He is acute kidney injury at this point with a creatinine down to 0.75 with normal BUN stabilized almost back to normal his hypokalemia and hypomagnesemia were replaced and that is mostly from diuretics. As for his congestive heart failure continue to improve gradually. Love catheter was removed today patient is on Flomax hoping to see if patient can void on his own. 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 11/23/2023: Patient is resting comfortably in bed his neck remain extremely sore, physical therapist limited at this point. His Love catheter is out and patient was able to void on his own. Still waiting for uric acid from this morning. He had episode of A-fib with RVR was started on Cardizem drip from last still on anticoagulation still seeing cardiology regularly. His electrolyte imbalance along with kidney function test are much better but his liver function test has gone up a little bit causing his bilirubin ALT and AST to climb up will order an ultrasound of the liver and gallbladder to exclude the possibility of gallbladder stone or common duct stone. I spoke with the today and updated her on what is going on physically p atient will require to go for SNF for more physical therapy and help for at least the next 2 weeks. 11/24/2023: Patient remains slightly but comfortable continue to have significant cervical spine pain and discomfort still having slight dystonia turning his head to the right side with the neck is very stiff. Last 24 hours the continue having slight A-fib with RVR cardiology started him on Cardizem drip initially and move him into Cardizem orally along with increasing his dose of metoprolol to 100 mg daily and initiate Farxiga 5 mg daily. Will add Lasix 20 mg a day as well. Also patient was seen orthopedic which they agreed to continue conservative management by adding Flexeril and PT OT waiting for pain management for possible epidural. Addition patient developed to have significant wrist pain with most likely gout flareup despite uric acid dropped down to 6.0 but in the process probably was having more mobilization of uric acid reason why was 11 came down little bit fast with the allopurinol but that can drive patient to having gout for use for few days colchicine to reduce the side effect and complaint. 11/25/2023: Patient had gout flareup in the right wrist area was started on colchicine for total of 3 days, uric acid dropped down to 6.0 on allopurinol 200 mg daily. Patient is still waiting to see pain management for possible cervical epidural injection. He is sitting on the side of bed which is for his dystonia and severe neck pain is much better. Kidney function has improved significantly since his admission and all electrolyte imbalance has improved. Titrate physical therapy and still working with the geriatric social work professor for possible getting him to [facility] by later today or tomorrow. I hope patient will see pain management if he does epidural injection of the cervical spine will help his mobility significantly will make the transfer to [facility] and expectation with his rehab much more useful. 11/26/2023: Patient is feeling slightly better he is able to ambulate with slight physical therapy, he cannot do any epidural injection currently being on anticoagulation. Symptoms are slightly better, A-fib is under control compared to 2 days ago and he is back on oral beta-alexy and calcium channel alexy, still on anticoagulation. Pain is not under control we will titrate hydrocodone up to 10 mg every 6 hours as needed remain on Flexeril and baclofen. The patient electrolyte balance is much better so far and his uric acid is down to 6.0 with no flareup. Apparently [employer] has requested peer to peer review which was done in the afternoon today and approved for him to go to [facility] for rehab. REVIEW OF SYSTEMS: CONSTITUTIONAL: Well-developed no acute respiratory distress. EYES: No icterus sclerae, no conjunctivitis. EARS, NOSE, MOUTH, THROAT, and FACE: No sore throat, lymphadenopathy, carotid bruits or deformity. RESPIRATORY: Mild shortness of breath no cough or wheezes. CARDIOVASCULAR: Positive PND orthopnea palpitation no angina. GASTROINTESTINAL: Distended abdomen with slight nausea constipation. GENITOURINARY: Decreased urine output with mild irritation burning and discomfort. INTEGUMENT/BREAST: Negative for any muscular injury with mild osteoarthritis.. HEMATOLOGIC/LYMPHATIC: Negative for bleed or purpura. MUSCULOSKELTAL: Chronic arthralgia and myalgia. NEURLOGICAL: No LOC, Sz or syncope, blurred vision dizziness or abnormality.. BEHAVIORAL/PSYCH: Negative. ENDOCRINE: Negative. PHYSICAL EXAMINATION: General Appearance: Alert, cooperative, no distress, seems slight discomfort laying in bed. Neck HEENT: Supple, no lymphadenopathy, no thyroid enlargement, no carotid bruits. Lungs: Decreased breath sound the bases positive rhonchi slight crackles in the right base. Chest Wall: Decreased expansion with deep inspiration no tenderness and no deformity was found on exam, no costochondral pain or discomfort. Heart: Irregular rate and rhythm, S1, S2 positive S3 positive systolic murmur. Back: Symmetric, no curvature, ROM normal, severe scoliosis with slight CVA tenderness with scar tissue from previous surgery. Abdomen: Soft, non-tender, bowel sounds active all four quadrants, no masses, no organomegaly. Slight distended abdomen. Mild discomfort in the right upper quadrant area. Extremities: Extremities normal, atraumatic, no cyanosis positive edema 1-2+ lower extremity worse on the right of the left side. Foot exam shows slight warmness discomfort and swelling with chronic edema. Pulses: 2+ and symmetric. Skin: Skin color, texture, tugor normal, no rashes or lesions. Neurologic: Alert oriented x3 cranial nerves II through XII intact, no motor deficit, no abnormal balance or gait. ASSESSMENT AND PLAN: _Acute kidney injury: His GFR with kidney function are back to normal. Continue to avoid any nephrotoxic agent. Doing so well waiting for his kidney function from today. _Severe electrolyte imbalance including severe hypomagnesemia, hypokalemia: All electrolyte imbalance resolved back to normal. _Severe hyperuricemia: He is to continue allopurinol uric acid was down to 6.0. Developed to have gout in the wrist will add colchicine for 3 days. _A-fib with RVR: He is back on Cardizem orally along with metoprolol 100 mg daily and added slight Farxiga for improvement of the ventricle contractility. With adjustment of his medication by cardiology he is back on Cardizem orally at 120 mg daily. _Abnormal liver function test: With a current finding liver ultrasound was positive for gallbladder sludge patient is not having any flareup we can await chronic eventually patient might require to have gallbladder surgery. _Acute on chronic diastolic congestive heart failure: Has been on diuretics echocardiograms up-to-date still seen cardiology regular basis. _Persistent A-fib: Will continue on Eliquis along with beta-alexy with atenolol and Cardizem. Patient is on heart monitor watch for any persistent tachycardia or symptoms. _Severe cervical spine radiculopathy along with mild bulging disc and spinal stenosis: Patient had severe limited mobility at this point and severe pain. Was seen orthopedic had his MRI patient will need more physical therapy, still waiting for pain management for epidural today hopefully. _Chronic pain syndrome: Changes hydrocodone up to 10/325 up to 4 times a day as needed continue to be combined with baclofen and Flexeril as needed basis. _Hypertension: With urgent symptoms sometimes remain on Zestril 20 mg daily, amlodipine 10 mg daily, torsemide or furosemide along with diltiazem CD. _Hyperlipidemia: Continue atorvastatin 20 mg a day. _Urinary retention: Love catheter was removed successfully and no retention. _Previous history of GI bleed with no recurrent bleed at this point remain on omeprazole 20 mg daily. _Hypertension: His blood pressure still slightly low without his DAVID continue Cardizem and spironolactone only. Prognosis: Fair. Discussion: Patient required to go into rehab for at least the next 2 weeks continue to titrate pain management, epidural injection might be done as an ou tpatient cannot have it as an inpatient while he is on baclofen. Objective - Vital Signs Vital signs: Vital Signs Temp 97.9 F 11/26/23 04:00 Pulse 69 11/26/23 04:00 Resp 18 11/26/23 04:00 BP 135/82 11/26/23 04:00 Pulse Ox 100 11/26/23 04:00 FiO2 Intake & Output 11/25/23 11/26/23 11/26/23 18:59 06:59 18:59 Intake Total 830 1020 Output Total 300 Balance 830 720 Intake: Oral 830 1020 Output: Urine 300 Other: Voiding Method Urinal Urinal # Voids 1 # Bowel Movements 1 - Labs CBC & Chem 7: 11/25/23 07:12 11/25/23 07:12 Labs: Abnormal Lab Results - Last 24 Hours (Table) 11/25/23 11/25/23 Range/Units 07:12 07:12 WBC 10.9 H (3.8-10.6) k/uL RBC 3.60 L (4.30-5.90) m/uL Hgb 12.0 L (13.0-17.5) gm/dL Hct 37.7 L (39.0-53.0) % MCV 104.6 H (80.0-100.0) fL BUN 23 H (9-20) mg/dL Creatinine 0.61 L (0.66-1.25) mg/dL Total Bilirubin 1.4 H (0.2-1.3) mg/dL AST 254 H (17-59) U/L ALT 427 H (4-49) U/L Alkaline Phosphatase 223 H (38-126) U/L
[2023-11-27] MEDS ORDERED: DILTIAZEM CD 240 MG CAP.ER.24H PO SCH (09:00)
== END 2023-11-26 15:13 | DRG 291 ==
LOC: EC 11:20 → 3SCARD 14:22
PROVIDERS: ADMIT Internal Medicine Geriatric Medicine; ATTEND Internal Medicine Geriatric Medicine
DX: I13.0 Hypertensive heart and chronic kidney disease with heart failure and stage 1 through stage 4 chronic kidney disease, or unspecified chronic kidney disease (principal); I50.33 Acute on chronic diastolic (congestive) heart failure; N17.0 Acute kidney failure with tubular necrosis; I48.21 Permanent atrial fibrillation; E87.1 Hypo-osmolality and hyponatremia; E87.6 Hypokalemia; E83.42 Hypomagnesemia; R79.0 Abnormal level of blood mineral; R33.8 Other retention of urine; Z79.01 Long term (current) use of anticoagulants; G89.4 Chronic pain syndrome; E78.5 Hyperlipidemia, unspecified; Z79.899 Other long term (current) drug therapy; T50.2X5A Adverse effect of carbonic-anhydrase inhibitors, benzothiadiazides and other diuretics, initial encounter; I95.9 Hypotension, unspecified; K82.8 Other specified diseases of gallbladder; M48.00 Spinal stenosis, site unspecified; M50.10 Cervical disc disorder with radiculopathy, unspecified cervical region; M47.22 Other spondylosis with radiculopathy, cervical region; M10.9 Gout, unspecified; M25.539 Pain in unspecified wrist; E11.22 Type 2 diabetes mellitus with diabetic chronic kidney disease; E83.51 Hypocalcemia; F10.20 Alcohol dependence, uncomplicated; M50.11 Cervical disc disorder with radiculopathy, high cervical region; N28.1 Cyst of kidney, acquired; G24.9 Dystonia, unspecified; K21.9 Gastro-esophageal reflux disease without esophagitis; Z87.891 Personal history of nicotine dependence; M48.02 Spinal stenosis, cervical region; N18.9 Chronic kidney disease, unspecified; Z79.82 Long term (current) use of aspirin; Z85.828 Personal history of other malignant neoplasm of skin; Z96.643 Presence of artificial hip joint, bilateral; Z96.653 Presence of artificial knee joint, bilateral; X58.XXXA Exposure to other specified factors, initial encounter
CPT/HCPCS: 36415; 51702; 71046; 72050; 72141; 76705; 76770; 80053; 81003; 83735; 83880; 84484; 84550; 85025; 85027; 85610; 85730; 93005; 96365; 96366; 96375; 99291

== ENCOUNTER 2024-01-03 19:59 | Emergency (ER) | payer MEDICARE ==
--- NOTE | 2024-01-03 20:08 | ED ---
General Adult HPI - General Source: RN notes reviewed <Shaw Robbins - Last Filed: 01/03/24 20:07> - General Source: patient, RN notes reviewed, old records reviewed <Nico Penaloza - Last Filed: 01/04/24 21:59> - General Stated complaint: Fall-Head injury-blood thinners Time Seen by Provider: 01/03/24 20:04 - History of Present Illness Initial comments: 78-year-old male on Eliquis presenting to the ED with a chief complaint of fall/head injury. Patient reports that he was walking in to the house and next thing he knows, he was on the ground. He is unsure of the events leading up to the fall and is unable to recall the fall. Now notes laceration to the back of his head. (Shaw Robbins) Patient is a 78-year-old male who presents emergency department for fall on blood thinners. Patient states he was entering the house when he slipped and fell backwards striking his head on the ground. Does not recall the fall and cannot recall if he lost consciousness otherwise. Was found by family after a short period of time. Fall occurred multiple hours ago. Patient is on blood thinners. He also endorses chronic lower back pain which may be slightly worse at this time as well as some bilateral hip pain. Presents for further evaluation.Patient presents as a fall from ground-level on blood thinners. (Nico Penaloza) - Related Data Home Medications Medication Instructions Recorded Confirmed Omeprazole 20 mg PO DAILY 01/02/19 11/19/23 Atorvastatin [Lipitor] 20 mg PO DAILY 09/22/21 11/19/23 lisinopriL [Zestril] 20 mg PO DAILY 10/18/21 11/19/23 Apixaban [Eliquis] 5 mg PO DIRECTED 11/19/23 11/19/23 Loratadine [Claritin] 10 mg PO DAILY 11/19/23 11/19/23 Magnesium Oxide [Magox 400] 400 mg PO BID 11/19/23 11/19/23 Previous Rx's Medication Instructions Recorded Baclofen [Lioresal] 10 mg PO TID PRN tab 11/26/23 Cyclobenzaprine [Flexeril] 5 mg PO HS tab 11/26/23 Dapagliflozin Propanediol [Farxiga] 5 mg PO DAILY tab 11/26/23 Digoxin [Digitek] 125 mcg PO DAILY #30 tab 11/26/23 Diltiazem Cd [Cardizem CD] 240 mg PO DAILY #30 cap 11/26/23 Furosemide [Lasix] 20 mg PO DAILY tab 11/26/23 HYDROcodone/APAP 10-325MG [[place] 1 tab PO Q6HR PRN 3 Days #20 tab 11/26/23 10-325] Metoprolol Tartrate [Lopressor] 150 mg PO BID tab 11/26/23 Spironolactone [Aldactone] 25 mg PO DAILY tab 11/26/23 allopurinoL [Zyloprim] 200 mg PO DAILY tab 11/26/23 Allergies Allergy/AdvReac Type Severity Reaction Status Date / Time No Known Allergies Allergy Verified 01/03/24 20:04 Review of Systems ROS Other: All systems not noted in ROS Statement are negative. <Shaw Robbins - Last Filed: 01/03/24 20:07> ROS Other: All systems not noted in ROS Statement are negative. <Nico Penaloza - Last Filed: 01/04/24 21:59> ROS Statement: Those systems with pertinent positive or pertinent negative responses have been documented in the HPI. Review of Systems: CONST: Denies fever EYES: Denies blurry vision ENT: Denies nasal congestion C/V: Denies Chest pain RESP: Denies shortness of breath GI: Denies abdominal pain : Denies dysuria SKIN: Endorses abrasion to scalp which is bleeding. MSK: Endorses joint pain. NEURO: Denies headache (Nico Penaloza) Past Medical History Past Medical History: Atrial Fibrillation, Cancer, Heart Failure, GERD/Reflux, Hyperlipidemia, Hypertension, Osteoarthritis (OA) Additional Past Medical History / Comment(s): diverticular disease, bleeding duodenal ulcer, gastritis, hemorrhoids, chronic low back pain, vertigo at times, skin cancer with removal, CHF History of Any Multi-Drug Resistant Organisms: None Reported Past Surgical History: Appendectomy, Joint Replacement, Orthopedic Surgery, Tonsillectomy Additional Past Surgical History / Comment(s): Total L/R knee arthroplasty, bilateral total hip arthroplasties, bilateral carpal tunnel releases, L foot bone removed/hardware since removed and had spacer placed, steroid back injections, colonoscopies, basal cell skin cancer removed. Past Anesthesia/Blood Transfusion Reactions: No Reported Reaction Additional Past Anesthesia/Blood Transfusion Reaction / Comment(s): . Past Psychological History: No Psychological Hx Reported Smoking Status: Former smoker Past Alcohol Use History: Daily Past Drug Use History: None Reported - Past Family History Brother(s) Family Medical History: Cancer Mother Family Medical History: Cancer Additional Family Medical History / Comment(s): Mother lived to be 90yrs old. breast cancer Father Family Medical History: No Reported History Additional Family Medical History / Comment(s): Father lived to be in his early 80's. <Shaw Robbins - Last Filed: 01/03/24 20:07> General Exam <Nico Penaloza - Last Filed: 01/04/24 21:59> - General Exam Comments Initial Comments: General: Appears in no acute distress. HEAD: Scalp abrasion/skin tear. Negative Cain sign. Negative raccoon eyes. EYES: PERRLA, EOMI, conjunctiva normal, no discharge. Pupils 3 mm and equal bilaterally. ENT: Hearing grossly intact, normal oropharynx. RESPIRATORY: Clear breath sounds bilaterally. No wheezes, rales, or rhonchi. C/V: Irregular rate and rhythm. S1 and S2 auscultated, no edema, peripheral pulses 2+ and intact throughout ABD: Abd is soft, nontender, nondistended EXT: Normal range of motion, no obvious deformity. Pelvis is stable. No significant midline cervical, thoracic spine tenderness palpation. Mild lumbar spine tenderness to palpation. No step-offs or deformities. No extremity pain or injuries. SKIN: Small approximate quarter size skin tear to the left parietal scalp. Bl eeding is controlled. NEURO: Alert and oriented x 4. No focal sensory or strength deficits. GCS of 15. (Nico Penaloza) Course Vital Signs 01/03/24 01/03/24 01/03/24 20:04 23:25 23:55 Temperature 97.4 F L Pulse Rate 58 L 84 82 Respiratory 16 16 18 Rate Blood Pressure 136/74 115/64 111/63 O2 Sat by Pulse 98 97 96 Oximetry 01/04/24 01/04/24 01/04/24 01:17 02:26 05:00 Temperature Pulse Rate 82 84 85 Respiratory 16 18 18 Rate Blood Pressure 115/64 110/78 146/80 O2 Sat by Pulse 99 99 100 Oximetry 01/04/24 01/04/24 06:51 07:40 Temperature 98.1 F Pulse Rate 92 86 Respiratory 18 18 Rate Blood Pressure 116/71 108/63 O2 Sat by Pulse 98 97 Oximetry Medical Decision Making - Lab Data Result diagrams: 01/03/24 20:19 01/03/24 20:19 - EKG Data -: EKG Interpreted by Me <TremaineNico - Last Filed: 01/04/24 21:59> - Medical Decision Making Was pt. sent in by a medical professional or institution (, PA, SALES OPERATIONS MANAGER, urgent care, hospital, or care home...) When possible be specific @ -No Did you speak to anyone other than the patient for history (EMS, parent, family, police, friend...)? What history was obtained from this source @ -Presents with who assist with patient's recent past medical history. Did you review nursing and triage notes (agree or disagree)? Why? @ -I reviewed and agree with nursing and triage notes Were old charts reviewed (outside hosp., previous admission, EMS record, old EKG, old radiological studies, urgent care reports/EKG's, care home records)? Report findings @ -No old charts were reviewed Differential Diagnosis (chest pain, altered mental status, abdominal pain women, abdominal pain men, vaginal bleeding, weakness, fever, dyspnea, syncope, headache, dizziness, GI bleed, back pain, seizure, CVA, palpatations, mental he alth, musculoskeletal)? @ -Differential Musculoskeletal Muscular strain, contusion, ligament sprain, fracture, arthritis, septic arthritis, bursitis, cellulitis, muscle spasm, nerve compression, DVT, arterial occlusion, herpes zoster, electrolyte abnormality, tumor.... This is not meant to be in all inclusive list. Also includes intracranial injury. EKG interpreted by me (3pts min.). @ -As above X-rays interpreted by me (1pt min.). @ -Chest x-ray, pelvis x-ray negative for any obvious traumatic injury. CT interpreted by me (1pt min.). @ -CT brain, C-spine negative for any obvious traumatic injury. Lumbar spine CT reveals no obvious acute injury.CT hip negative for any obvious traumatic injury. U/S interpreted by me (1pt. min.). @ -None done What testing was considered but not performed or refused? (CT, X-rays, U/S, labs)? Why? @ -None What meds were considered but not given or refused? Why? @ -None Did you discuss the management of the patient with other professionals (thao son i.eJames Clifton, PA, SALES OPERATIONS MANAGER, lab, RT, psych nurse, clinical social worker, emergency care attendant, teacher, animal park code enforcement officer, porter sample case)? Give summary @ -No Was smoking cessation discussed for >3mins.? @ -No Was critical care preformed (if so, how long)? @ -No Were there social determinants of health that impacted care today? How? (Homelessness, low income, unemployed, alcoholism, drug addiction, transportation, low edu. Level, literacy, decrease access to med. care, nursing home, rehab)? @ -No Was there de-escalation of care discussed even if they declined (Discuss DNR or withdrawal of care, Hospice)? DNR status @ -No What co-morbidities impacted this encounter? (DM, HTN, Smoking, COPD, CAD, Cancer, CVA, ARF, Chemo, Hep., AIDS, mental health diagnosis, sleep apnea, morbid obesity)? @ -None Was patient admitted / discharged? Hospital course, mention meds given and route, prescriptions, significant lab abnormalities, going to OR and other pertinent info. @ -Patient presents as a fall from standing on blood thinners. Possible LOC. Fall occurred multiple hours ago. GCS currently 15. Does not meet criteria for trauma activation. Will obtain CT brain, C-spine as well as lumbar spine. Patient given analgesia medications. Has a skin tear as well which is cleaned. Up-to-date on tetanus. No obtain basic labs and screening EKG as well. Patient in agreement this plan. Vital signs within acceptable limits. EKG shows known atrial fibrillation with no other signs of acute ischemia. Patient's laboratory studies are within acceptable limits. CT brain and C-spine and lumbar spine negative for any obvious acute traumatic injury. Chest x-ray and pelvis x-ray negative for any obvious traumatic injury. At this time, attempted to ambulate patient however was still having left hip pain. Therefore discussion was obtained with the evening doctor who ordered CT left hip. CT returned negative. Patient eventually discharged home. Strict return precautions discussed. Undiagnosed new problem with uncertain prognosis? @ -No Drug Therapy requiring intensive monitoring for toxicity (Heparin, Nitro, Insu lety, Cardizem)? @ -No Were any procedures done? @ -No Diagnosis/symptom? @ -Mechanical fall, skin tear on scalp, hip strain Acute, or Chronic, or Acute on Chronic? @ -Acute Uncomplicated (without systemic symptoms) or Complicated (systemic symptoms)? @ -Complicated Side effects of treatment? @ -No Exacerbation, Progression, or Severe Exacerbation? @ -No Poses a threat to life or bodily function? How? (Chest pain, USA, MA, pneumonia, PE, COPD, DKA, ARF, appy, cholecystitis, CVA, Diverticulitis, Homicidal, Suicidal, threat to staff... and all critical care pts) @ -Unlikely (Nico Penaloza) - Lab Data Lab Results 01/03/24 01/03/24 01/03/24 Range/Units 20:19 20:19 20:19 WBC 11.6 H (3.8-10.6) k/uL RBC 3.66 L (4.30-5.90) m/uL Hgb 12.1 L (13.0-17.5) gm/dL Hct 36.7 L (39.0-53.0) % MCV 100.2 H D (80.0-100.0) fL MCH 32.9 (25.0-35.0) pg MCHC 32.9 (31.0-37.0) g/dL RDW 15.2 (11.5-15.5) % Plt Count 213 (150-450) k/uL MPV 7.8 Neutrophils % 79 % Lymphocytes % 13 % Monocytes % 6 % Eosinophils % 1 % Basophils % 1 % Neutrophils # 9.1 H (1.3-7.7) k/uL Lymphocytes # 1.5 (1.0-4.8) k/uL Monocytes # 0.6 (0-1.0) k/uL Eosinophils # 0.1 (0-0.7) k/uL Basophils # 0.1 (0-0.2) k/uL Macrocytosis Slight PT 11.4 (10.0-12.5) sec INR 1.0 (<1.2) APTT 24.4 (22.0-30.0) sec Sodium 130 L (137-145) mmol/L Potassium 4.9 (3.5-5.1) mmol/L Chloride 100 (98-107) mmol/L Carbon Dioxide 19 L (22-30) mmol/L Anion Gap 11 mmol/L BUN 30 H (9-20) mg/dL Creatinine 1.29 H (0.66-1.25) mg/dL Est GFR (CKD-EPI)AfAm 61 (>60 ml/min/1.73 sqM) Est GFR (CKD-EPI)NonAf 53 (>60 ml/min/1.73 sqM) Glucose 96 (74-99) mg/dL Calcium 9.7 (8.4-10.2) mg/dL Magnesium 1.3 L (1.6-2.3) mg/dL Total Bilirubin 0.6 (0.2-1.3) mg/dL AST 24 (17-59) U/L ALT 18 (4-49) U/L Alkaline Phosphatase 97 (38-126) U/L Total Protein 7.0 (6.3-8.2) g/dL Albumin 4.3 (3.5-5.0) g/dL - EKG Data EKG Comments: 12-lead Electrocardiogram Interpretation Note EKG was reviewed and interpreted by myself. 12-lead ECG performed at 2013 is interpreted by me as revealing atrial fibrillation at a rate of 65 beats per minute. [place] is normal. QRS duration is 98 ms, QTc is 403 ms.. There were no ST or T wave abnormalities to suggest myocardial ischemia or injury. R wave progression across the precordium was satisfactory. By my interpretation this EKG is non-diagnostic for acute ischemia. (Nico Penaloza) Disposition <Shaw Robbins - Last Filed: 01/03/24 20:07> Is patient prescribed a controlled substance at d/c from ED?: No <Nico Penaloza - Last Filed: 01/04/24 21:59> Clinical Impression: Fall, Skin tear, Hip strain Disposition: HOME SELF-CARE Instructions (If sedation given, give patient instructions): Fall Prevention for Older Adults (ED) Referrals: Chris Rice MD [Primary Care Provider] - 1-2 days
[2024-01-03 20:33] LABS: Basophils # (A) 0.1 k/uL (0-0.2); Basophils % (A) 1 %; Eosinophils # (A) 0.1 k/uL (0-0.7); Eosinophils % (A) 1 %; HCT 36.7 % (39.0-53.0); HGB 12.1 gm/dL (13.0-17.5); Lymphocytes # (A) 1.5 k/uL (1.0-4.8); Lymphocytes % (A) 13 %; MCH 32.9 pg (25.0-35.0); MCHC 32.9 g/dL (31.0-37.0); MCV 100.2 fL (80.0-100.0); Macrocytosis Slight; Mean Platelet Volume 7.8; Monocytes # (A) 0.6 k/uL (0-1.0); Monocytes % (A) 6 %; Neutrophils # (A) 9.1 k/uL (1.3-7.7); Neutrophils % (A) 79 %; Platelet Count 213 k/uL (150-450); RBC 3.66 m/uL (4.30-5.90); RDW 15.2 % (11.5-15.5); WBC 11.6 k/uL (3.8-10.6)
[2024-01-03 20:38] LABS: Partial Thromboplastin Time 24.4 sec (22.0-30.0); Prothrombin Time 11.4 sec (10.0-12.5)
[2024-01-03] MEDS: ACETAMINOPHEN TAB 500 MG TAB PO STA (20:53)
[2024-01-03 20:54] LABS: ALT 18 U/L (4-49); AST 24 U/L (17-59); African American GFR (CKD) 61 (>60 ml/min/1.73 sqM); Albumin 4.3 g/dL (3.5-5.0); Alkaline Phosphatase 97 U/L (38-126); Anion Gap 11 mmol/L; Blood Urea Nitrogen 30 mg/dL (9-20); Calcium 9.7 mg/dL (8.4-10.2); Carbon Dioxide 19 mmol/L (22-30); Chloride 100 mmol/L (98-107); Glucose 96 mg/dL (74-99); Magnesium 1.3 mg/dL (1.6-2.3); Non-African American GFR(CKD) 53 (>60 ml/min/1.73 sqM); Potassium 4.9 mmol/L (3.5-5.1); Sodium 130 mmol/L (137-145); Total Bilirubin 0.6 mg/dL (0.2-1.3)
--- NOTE | 2024-01-03 22:17 | CT ---
EXAMINATION TYPE: CT brain cspine wo con CT DLP: 1672 mGycm, Automated exposure control for dose reduction was used. DATE OF EXAM: 01/03/2024 9:15 PM COMPARISON: None. CLINICAL INDICATION:Male, 78 years old with history of s/p fall on eliquis; TECHNIQUE: Brain: Multiple axial CT images of the brain were obtained without IV contrast. Cspine: Axial CT images from the skull base to the inferior aspect of T2 we obtained without intraven ous contrast. Coronal and sagittal reformatted images were also reviewed. FINDINGS: Brain: Extra-axial spaces: No abnormal extra-axial fluid collections. Ventricular system: Appear dilated in proportion to the degree of cerebral atrophy. Cerebral parenchyma: No increased attenuation to suggest acute intraparenchymal hemorrhage. The gra y-white matter interface appears maintained. Moderate to severe generalized brain atrophy. Scattere d hypoattenuating areas are seen within the cerebral white matter, nonspecific but most often seen wi th chronic microvascular ischemic changes; moderate/severe in degree. Cerebellum: No acute abnormality. Mass effect: No evidence of mass effect or midline shift. Intracranial vasculature: Atherosclerotic calcifications of the larger arteries near the skull base. Soft tissues: No extracranial soft tissue abnormality. Visualized orbits: Orbital contents appear grossly intact. There has likely been previous lens surg reena. No fracture seen. Calvarium/osseous structures: Skull appears osteopenic without evidence of fracture, exam is limited by patient motion. Paranasal sinuses and mastoid air cells: Near complete opacification the right posterior sphenoid sin us. Mastoid air cells are patent. MRI is more sensitive for detecting acute processes such as infarct, and may be considered if clinica lly warranted. Cervical spine: Exam is limited by patient motion. Fracture: None seen. Osseous structures, spinal canal/neural foramina: Generalized osteopenia. Moderate multilevel spondyl osis. No critical canal or foraminal stenosis. No significant findings appear to be mild to moderate canal stenosis C3 C4-T1. Vertebral alignment: No traumatic malalignment. Preserved normal cervical lordosis. Neck soft tissues: No acute finding.. Calcifications noted involving the cervical carotid arteries mo stly in the bifurcation regions, and along the aortic arch. Other: Lung apices show no acute infiltrate or pneumothorax. IMPRESSION: CT head: 1. No CT evidence of an acute intracranial abnormality. 2. Atrophy and chronic microvascular ischemic white matter changes. CT cervical spine: 1. No evidence of acute cervical spine fracture or traumatic malalignment. 2. Moderate cervical spondylosis.
[2024-01-03] MEDS: MORPHINE SULFATE 2 MG/ML SYRINGE IVP STA (23:00)
--- NOTE | 2024-01-03 23:01 | CT ---
EXAMINATION TYPE: CT lumbar spine wo con CT DLP: 1497.6 mGycm, Automated exposure control for dose reduction was used. DATE OF EXAM: 01/03/2024 9:16 PM COMPARISON: None.. CLINICAL INDICATION:Male, 78 years old with history of fall, pain; PHH, s/p fall on eliquis. TECHNIQUE: CT of the lumbar spine was performed without contrast. Multiplanar soft tissue and bone windows were obtained and reviewed. . Contrast used: None FINDINGS: There are 5 nonrib-bearing lumbar-type vertebral bodies. There is generalized osteopenia. Moderate mu ltilevel spondylosis is present. There is moderately prominent apex right scoliosis centered at L3, t here is leftward shift of L2 on L3 of approximately 8 mm. There is also 4.5 mm degenerative anterolis thesis L4 over L5. No acute fracture or bony destructive process is identified. T12-L1, there is mild posterior disc osteophyte complex and mild/moderate facet arthrosis resulting i n mild/moderate canal and neural foraminal stenoses. L1-L2, there is mild posterior disc osteophyte complex and mild/moderate facet arthrosis resulting in mild/moderate canal and neural foraminal stenoses. L2-L3, there is moderate posterior disc osteophyte complex and moderate bilateral facet arthrosis, ca using moderate to severe canal stenosis and bilateral neuroforaminal stenosis. L3-L4, mild to moderate posterior disc osteophyte complex, [id number] facet arthropathy and lig amentum flavum thickening, causing [id number] canal stenosis and bilateral neural foraminal s tenosis. L4-5, there is some unroofing of the disc related to the of the disc to the anterolisthesis, as well as posterior disc osteophyte complex. Moderate bilateral facet arthrosis. There is moderate to severe canal stenosis and mild/moderate neural foraminal stenoses. L5-S1, near complete loss of disc space with posterior central disc osteophyte complex. Moderate bila teral facet arthrosis. Combination results in moderate canal and foraminal stenosis. Partially seen sacrum and SI joints appear intact. There are bilateral hip prostheses partially seen. Other: The imaged paraspinal soft tissues demonstrate moderate to heavy calcification of the aorta an d branches. There is multifocal dilatation of the aorta, greatest above the bifurcation with axial di mensions 4.1 x 3.5 cm. Similar disease throughout the bilateral iliac arterial trees. Probable cyst e xophytic from the posterior right kidney. No hydronephrosis. IMPRESSION: 1. No evidence of acute lumbar spine fracture or traumatic malalignment. 2. Moderate multilevel spondylosis as described.
--- NOTE | 2024-01-04 01:28 | XR ---
EXAM: XR Pelvis, 1 or 2 Views CLINICAL HISTORY: ITS.REASON XR Reason: fall TECHNIQUE: Frontal view of the pelvis. COMPARISON: No relevant prior studies available. FINDINGS: Bones/joints: Bilateral hip arthroplasties unchanged from 01/03/2024. No acute fracture. No dislocation. Soft tissues: Unremarkable. IMPRESSION: No acute findings in the pelvis.
--- NOTE | 2024-01-04 01:30 | XR ---
EXAM: XR Chest, 2 Views CLINICAL HISTORY: ITS.REASON XR Reason: syncope/fall TECHNIQUE: Frontal and lateral views of the chest. COMPARISON: 11/19/2023 FINDINGS: Lungs: Unremarkable. No consolidation. Pleural space: Unremarkable. No pneumothorax. Heart: Cardiomegaly.. Mediastinum: Mild central pulmonary vascular congestion. Normal mediastinal contour. Bones/joints: Unremarkable. No acute fracture. IMPRESSION: Normal chest x-rays.
[2024-01-04 02:38] VITALS: RESP 18
[2024-01-04] MEDS: KETOROLAC 15 MG/ML 1 ML VIAL IVP STA (02:53)
[2024-01-04] MEDS: HYDROmorphone 0.5 MG/0.5 ML SYRINGE IVP STA (05:23)
--- NOTE | 2024-01-04 05:33 | CT ---
EXAM: CT Left Lower Extremity Without Intravenous Contrast, Hip CLINICAL HISTORY: ITS.REASON CT Reason: fall TECHNIQUE: Axial computed tomography images of the left hip without intravenous contrast. CTDI is 26.7 mGy and DLP is 953.6 mGy-cm. This CT exam was performed using one or more of the following dose reduction techniques: automated exposure control, adjustment of the mA and/or kV according to patient size, and/or use of iterative reconstruction technique. COMPARISON: No relevant prior studies available. FINDINGS: Bones/joints: Postoperative changes left hip arthroplasty without evidence of periprosthetic fracture or loosening. No dislocation. Soft tissues: Unremarkable. IMPRESSION: No acute findings in the left hip.
[2024-01-04 08:26] VITALS: BP 108/63; PULSE 86; TEMP 98.1
== END 2024-01-04 07:40 | disposition home or self-care (01) ==
LOC: EC 19:59
DX: S01.01XA Laceration without foreign body of scalp, initial encounter (principal); S76.012A Strain of muscle, fascia and tendon of left hip, initial encounter; Z87.891 Personal history of nicotine dependence; W01.0XXA Fall on same level from slipping, tripping and stumbling without subsequent striking against object, initial encounter
CPT/HCPCS: 99285; 96374; 96375 ×2; 36415; 93005; 80053; 83735; 85025; 85610; 85730; 72170; 71046; 72125; 72131; 70450; 73700; J2270; J1885; J1170

== ENCOUNTER → 2024-03-10 | Outpatient (CLI) | payer MEDICARE ==
[2024-03-10 19:38] LABS: HCT 42.9 % (39.6-50.0); HGB 14.2 g/dL (13.0-17.0); MCH 32.1 pg (27.0-32.0); MCHC 33.1 g/dL (32.0-37.0); MCV 96.8 FL (80.0-97.0); Mean Platelet Volume 10.8 FL (9.5-12.2); NRBC Per 100 WBC 0 X 10*3/uL (0.00-0.01); Platelet Count 311 X 10*3/uL (140-440); RBC 4.43 X 10*6/uL (4.40-5.60); RDW 16.3 % (11.5-14.5); WBC 14.17 X 10*3/uL (4.50-10.00)
[2024-03-10 20:16] LABS: Basophils # (A) 0.02 X 10*3/uL (0.00-0.10); Basophils % (A) 0.1 %; Eosinophils # (A) 0.01 X 10*3/uL (0.04-0.35); Eosinophils % (A) 0.1 %; Lymphocytes # (A) 1.48 X 10*3/uL (0.90-5.00); Lymphocytes % (A) 10.4 %; Monocytes # (A) 1.81 X 10*3/uL (0.20-1.00); Monocytes % (A) 12.8 %; Neutrophils # (A) 10.71 X 10*3/uL (1.80-7.70); Neutrophils % (A) 75.6 %
[2024-03-10 20:17] LABS: RBC Morphology Normal (Normal)
[2024-03-10 21:41] LABS: NT-Pro-B-Type Natriuretic Pept 2919 pg/mL (0-450)
[2024-03-10 21:44] LABS: ALT 43 U/L (10-49); AST 29 U/L (14-35); Albumin 4.5 g/dL (3.8-4.9); Alkaline Phosphatase 94 U/L (41-126); Blood Urea Nitrogen 27.6 mg/dL (9.0-27.0); Carbon Dioxide 20.6 mmol/L (21.6-31.8); Chloride 101 mmol/L (96-109); Globulin 2.5 g/dL (1.6-3.3); Glucose 104 mg/dL (70-110); Potassium 4.5 mmol/L (3.5-5.5); Sodium 138 mmol/L (135-145); Total Bilirubin 0.6 mg/dL (0.3-1.2)
[2024-03-10 23:50] LABS: Digoxin 0.9 ng/mL (0.8-2.0)
== END | disposition home or self-care (01) ==
LOC: LABWHC1 14:26
PROVIDERS: ATTEND Internal Medicine Cardiovascular Disease
DX: I48.91 Unspecified atrial fibrillation (principal); I50.32 Chronic diastolic (congestive) heart failure; E87.1 Hypo-osmolality and hyponatremia
CPT/HCPCS: 36415; 80053; 80162; 83880; 85025

== ENCOUNTER 2024-03-26 07:22 | Observation (INO) | payer MEDICARE ==
--- NOTE | 2024-03-26 08:14 | ED ---
General Adult HPI - General Chief complaint: Weakness Stated complaint: weakness Time Seen by Provider: 03/26/24 07:30 Source: patient, EMS, RN notes reviewed, old records reviewed Mode of arrival: EMS Limitations: no limitations - History of Present Illness Initial comments: This is a 78-year-old male who presents to the emergency department complaining of getting weaker over the last week and much more tired over the last week. Patient was in the bathroom today and was unable to get off the toilet for a few hours and the stated that was very unusual so they brought the patient in. Patient states he also was sleeping a lot more. Patient denies any chest pain difficulty breathing shortness of breath. Patient denies any abdominal pain pa tient has any nausea vomiting diarrhea. Patient currently states that besides being tired and weak he has no complaints at this time. Patient states he has had a cough for about a week. Patient denies any sputum production - Related Data Home Medications Medication Instructions Recorded Confirmed Omeprazole 20 mg PO HS 01/02/19 03/26/24 Atorvastatin [Lipitor] 20 mg PO HS 09/22/21 03/26/24 lisinopriL [Zestril] 10 mg PO DAILY 10/18/21 03/26/24 Apixaban [Eliquis] 5 mg PO BID 11/19/23 03/26/24 Loratadine [Claritin] 10 mg PO HS 11/19/23 03/26/24 Magnesium Oxide [Magox 400] 400 mg PO BID 11/19/23 03/26/24 Empagliflozin [Jardiance] 10 mg PO DAILY 03/26/24 03/26/24 Furosemide [Lasix] 40 mg PO DAILY 03/26/24 03/26/24 HYDROcodone/APAP 10-325MG [[place] 1 tab PO TID PRN 03/26/24 03/26/24 10-325] Metoprolol Tartrate [Lopressor] 50 mg PO BID 03/26/24 03/26/24 Multivitamins, Thera [Multivitamin 1 tab PO DAILY 03/26/24 03/26/24 (formulary)] allopurinoL [Zyloprim] 200 mg PO HS 03/26/24 03/26/24 Previous Rx's Medication Instructions Recorded Digoxin [Digitek] 125 mcg PO DAILY #30 tab 04/02/24 Diltiazem Cd [Cardizem CD] 240 mg PO DAILY #30 cap 11/26/23 Allergies Allergy/AdvReac Type Severity Reaction Status Date / Time No Known Allergies Allergy Verified 03/26/24 08:57 Review of Systems ROS Statement: Those systems with pertinent positive or pertinent negative responses have been documented in the HPI. ROS Other: All systems not noted in ROS Statement are negative. Past Medical History Past Medical History: Atrial Fibrillation, Cancer, Heart Failure, GERD/Reflux, Hyperlipidemia, Hypertension, Osteoarthritis (OA) Additional Past Medical History / Comment(s): diverticular disease, bleeding duodenal ulcer, gastritis, hemorrhoids, chronic low back pain, vertigo at times, skin cancer with removal, CHF History of Any Multi-Drug Resistant Organisms: None Reported Past Surgical History: Appendectomy, Joint Replacement, Orthopedic Surgery, Tonsillectomy Additional Past Surgical History / Comment(s): Total L/R knee arthroplasty, bilateral total hip arthroplasties, bilateral carpal tunnel releases, L foot bone removed/hardware since removed and had spacer placed, steroid back injections, colonoscopies, basal cell skin cancer removed. Past Anesthesia/Blood Transfusion Reactions: No Reported Reaction Additional Past Anesthesia/Blood Transfusion Reaction / Comment(s): . Past Psychological History: No Psychological Hx Reported Smoking Status: Former smoker Past Alcohol Use History: Daily Past Drug Use History: None Reported - Past Family History Brother(s) Family Medical History: Cancer Mother Family Medical History: Cancer Additional Family Medical History / Comment(s): Mother lived to be 90yrs old. breast cancer Father Family Medical History: No Reported History Additional Family Medical History / Comment(s): Father lived to be in his early 80's. General Exam - General Exam Comments Initial Comments: GENERAL: Patient is well-developed and well-nourished. Patient is nontoxic and well- hydrated and is in mild distress. ENT: Neck is soft and supple. No significant lymphadenopathy is noted. Oropharynx is clear. Moist mucous membranes. Neck has full range of motion without eliciting any pain. EYES: The sclera were anicteric and conjunctiva were pink and moist. Extraocular movements were intact and pupils were equal round and reactive to light. Eyelids were unremarkable. PULMONARY: Unlabored respirations. Good breath sounds bilaterally. No audible rales rhonchi or wheezing was noted. CARDIOVASCULAR: Patient has an irregular heartbeat at about 135 beats a minute. ABDOMEN: Soft and nontender with normal bowel sounds. SKIN: Skin is clear with no lesions or rashes and otherwise unremarkable. NEUROLOGIC: Patient is alert and oriented x3. Cranial nerves II through XII are grossly intact. Motor and sensory are also intact. Normal speech, volume and content. Symmetrical smile. MUSCULOSKELETAL: Normal extremities with adequate strength and full range of motion. LYMPHATICS: No significant lymphadenopathy is noted PSYCHIATRIC: Normal psychiatric evaluation. Limitations: no limitations Course Vital Signs 03/26/24 03/26/24 03/26/24 07:30 08:31 10:24 Temperature 97.7 F Pulse Rate 134 H 128 H 120 H Respiratory 20 16 18 Rate Blood Pressure 121/73 110/79 140/86 O2 Sat by Pulse 96 94 L 95 Oximetry Medical Decision Making - Medical Decision Making EKG is interpreted by myself. EKG is showing atrial fibrillation at with a rapid ventricular response of 135 bpm QRS 106 QT interval is 293 QTc is 372. Patient's EKG shows no ST segment elevation Was pt. sent in by a medical professional or institution (, PA, [employer], urgent care, hospital, or [place] [facility] facility...) When possible be specific @ -No Did you speak to anyone other than the patient for history (EMS, parent, family, police, friend...)? What history was obtained from this source @ -No Did you review nursing and triage notes (agree or disagree)? Why? @ -I reviewed and agree with nursing and triage notes Were old charts reviewed (outside hosp., previous admission, EMS record, old EKG, old radiological studies, urgent care reports/EKG's, [place] [facility] facility records)? Report findings @ -No old charts were reviewed Differential Diagnosis? @ -Differential Weakness: Hypoglycemia, shock, sepsis, hyponatremia, anemia, infection, DC, ETOH, adverse medicine reaction, overdose, stroke, this is not meant to be an all-inclusive list. EKG interpreted by me (3pts min.). @ -As above X-rays interpreted by me (1pt min.). @ -Chest x-ray shows no acute abnormality CT interpreted by me (1pt min.). @ -None done U/S interpreted by me (1pt. min.). @ -None done What testing was considered but not performed or refused? (CT, X-rays, U/S, labs)? Why? @ -None What meds were considered but not given or refused? Why? @ -None Did you discuss the management of the patient with other professionals (professionals i.e. , PA, [employer], lab, RT, psych nurse, professor of social work, hose inspector, teacher, special officer, major case detective)? Give summary @ -I spoke with Dr. Rice and he wanted the patient admitted for 23-hour observation Was smoking cessation discussed for >3mins.? @ -No Was critical care preformed (if so, how long)? @ -No Were there social determinants of health that impacted care today? How? (Homelessness, low income, unemployed, alcoholism, drug addiction, transportation, low edu. Level, literacy, decrease access to med. care, prison, rehab)? @ -No Was there de-escalation of care discussed even if they declined (Discuss DNR or withdrawal of care, Hospice)? DNR status @ -No What co-morbidities impacted this encounter? (DM, HTN, Smoking, COPD, CAD, Cancer, CVA, ARF, Chemo, Hep., AIDS, mental health diagnosis, sleep apnea, morbid obesity)? @ -None Was patient admitted / discharged? Hospital course, mention meds given and route, prescriptions, significant lab abnormalities, going to OR and other pertinent info. @ -Patient remains too weak to stand on his own and the is unable to take care of the patient so I spoke with Dr. Dwayne Rice agreed to admit the patient admit the patient for atrial fibrillation with rapid ventricular response and consult to cardiology per Dr. Rice's instructions Undiagnosed new problem with uncertain prognosis? @ -No Drug Therapy requiring intensive monitoring for toxicity (Heparin, Nitro, Insulin, Cardizem)? @ -No Were any procedures done? @ -No Diagnosis/symptom? @ -Generalized weakness Acute, or Chronic, or Acute on Chronic? @ -Acute Uncomplicated (without systemic symptoms) or Complicated (systemic symptoms)? @ -Complicated Side effects of treatment? @ -No Exacerbation, Progression, or Severe Exacerbation? @ -No Poses a threat to life or bodily function? How? (Chest pain, USA, DC, pneumonia, PE, COPD, DKA, ARF, appy, cholecystitis, CVA, Diverticulitis, Homicidal, Suicidal, threat to staff... and all critical care pts) @ -No Diagnosis/symptom? @ -A-fib with rapid ventricular response Acute, or Chronic, or Acute on Chronic? @ -Acute Uncomplicated (without systemic symptoms) or Complicated (systemic symptoms)? @ -Complicated Side effects of treatment? @ -None Exacerbation, Progression, or Severe Exacerbation] @ -No Poses a threat to life or bodily function? @ -Yes this could lead to significant pulmonary and potential hypoxia. - Lab Data Result diagrams: 03/26/24 08:30 03/26/24 08:30 Lab Results 03/26/24 03/26/24 03/26/24 Range/Units 08:30 08:30 08:30 WBC 15.4 H (3.8-10.6) k/uL RBC 4.45 (4.30-5.90) m/uL Hgb 14.3 (13.0-17.5) gm/dL Hct 43.8 (39.0-53.0) % MCV 98.4 (80.0-100.0) fL MCH 32.1 (25.0-35.0) pg MCHC 32.6 (31.0-37.0) g/dL RDW 15.9 H (11.5-15.5) % Plt Count 171 (150-450) k/uL MPV 8.2 Neutrophils % 89 % Lymphocytes % 4 % Monocytes % 6 % Eosinophils % 0 % Basophils % 0 % Neutrophils # 13.7 H (1.3-7.7) k/uL Lymphocytes # 0.6 L (1.0-4.8) k/uL Monocytes # 1.0 (0-1.0) k/uL Eosinophils # 0.0 (0-0.7) k/uL Basophils # 0.0 (0-0.2) k/uL Macrocytosis Slight Sodium 131 L (137-145) mmol/L Potassium 4.6 (3.5-5.1) mmol/L Chloride 102 (98-107) mmol/L Carbon Dioxide 19 L (22-30) mmol/L Anion Gap 10 mmol/L BUN 28 H (9-20) mg/dL Creatinine 0.78 (0.66-1.25) mg/dL Est GFR (CKD-EPI)AfAm >90 (>60 ml/min/1.73 sqM) Est GFR (CKD-EPI)NonAf 86 (>60 ml/min/1.73 sqM) Glucose 137 H (74-99) mg/dL Plasma Lactic Acid [place] 1.5 (0.7-2.0) mmol/L Calcium 9.9 (8.4-10.2) mg/dL Magnesium 2.1 (1.6-2.3) mg/dL Total Bilirubin 1.6 H (0.2-1.3) mg/dL AST 37 (17-59) U/L ALT 26 (4-49) U/L Alkaline Phosphatase 116 (38-126) U/L Troponin I (0.000-0.034) ng/mL Total Protein 6.7 (6.3-8.2) g/dL Albumin 4.0 (3.5-5.0) g/dL Urine Color Urine Appearance (Clear) Urine pH (5.0-8.0) Ur Specific [place] (1.001-1.035) Urine Protein (Negative) Urine Glucose (UA) (Negative) Urine Ketones (Negative) Urine Blood (Negative) Urine Nitrite (Negative) Urine Bilirubin (Negative) Urine Urobilinogen (<2.0) mg/dL Ur Leukocyte Esterase (Negative) 03/26/24 03/26/24 Range/Units 08:30 13:45 WBC (3.8-10.6) k/uL RBC (4.30-5.90) m/uL Hgb (13.0-17.5) gm/dL Hct (39.0-53.0) % MCV (80.0-100.0) fL MCH (25.0-35.0) pg MCHC (31.0-37.0) g/dL RDW (11.5-15.5) % Plt Count (150-450) k/uL MPV Neutrophils % % Lymphocytes % % Monocytes % % Eosinophils % % Basophils % % Neutrophils # (1.3-7.7) k/uL Lymphocytes # (1.0-4.8) k/uL Monocytes # (0-1.0) k/uL Eosinophils # (0-0.7) k/uL Basophils # (0-0.2) k/uL Macrocytosis Sodium (137-145) mmol/L Potassium (3.5-5.1) mmol/L Chloride (98-107) mmol/L Carbon Dioxide (22-30) mmol/L Anion Gap mmol/L BUN (9-20) mg/dL Creatinine (0.66-1.25) mg/dL Est GFR (CKD-EPI)AfAm (>60 ml/min/1.73 sqM) Est GFR (CKD-EPI)NonAf (>60 ml/min/1.73 sqM) Glucose (74-99) mg/dL Plasma Lactic Acid [place] (0.7-2.0) mmol/L Calcium (8.4-10.2) mg/dL Magnesium (1.6-2.3) mg/dL Total Bilirubin (0.2-1.3) mg/dL AST (17-59) U/L ALT (4-49) U/L Alkaline Phosphatase (38-126) U/L Troponin I <0.012 (0.000-0.034) ng/mL Total Protein (6.3-8.2) g/dL Albumin (3.5-5.0) g/dL Urine Color Yellow Urine Appearance Clear (Clear) Urine pH 5.5 (5.0-8.0) Ur Specific [place] 1.029 (1.001-1.035) Urine Protein Trace H (Negative) Urine Glucose (UA) 4+ H (Negative) Urine Ketones 1+ H (Negative) Urine Blood Negative (Negative) Urine Nitrite Negative (Negative) Urine Bilirubin Negative (Negative) Urine Urobilinogen <2.0 (<2.0) mg/dL Ur Leukocyte Esterase Negative (Negative) Disposition Clinical Impression: Atrial fibrillation with rapid ventricular response, Generalized weakness Disposition: ADMITTED IP TO THIS [facility] Referrals: Chris Rice MD [Primary Care Provider] - 1-2 days Time of Disposition: 14:57
[2024-03-26 08:45] LABS: Basophils % (A) 0 %; Eosinophils % (A) 0 %; HCT 43.8 % (39.0-53.0); HGB 14.3 gm/dL (13.0-17.5); Lymphocytes # (A) 0.6 k/uL (1.0-4.8); Lymphocytes % (A) 4 %; MCH 32.1 pg (25.0-35.0); MCHC 32.6 g/dL (31.0-37.0); MCV 98.4 fL (80.0-100.0); Macrocytosis Slight; Mean Platelet Volume 8.2; Monocytes % (A) 6 %; Neutrophils # (A) 13.7 k/uL (1.3-7.7); Neutrophils % (A) 89 %; Platelet Count 171 k/uL (150-450); RBC 4.45 m/uL (4.30-5.90); RDW 15.9 % (11.5-15.5); WBC 15.4 k/uL (3.8-10.6)
--- NOTE | 2024-03-26 08:51 | XR ---
EXAMINATION TYPE: XR chest 2V DATE OF EXAM: 03/26/2024 8:42 AM CLINICAL INDICATION:Male, 78 years old with history of Weakness; COMPARISON: Chest radiographs from 01/03/2024. TECHNIQUE: XR chest 2V Frontal view of the chest. FINDINGS: Lungs/Pleura: There is no evidence of pleural effusion, focal consolidation, or pneumothorax. Pulmonary vascularity: Unremarkable. Heart/mediastinum: Cardiomediastinal silhouette is unremarkable. Musculoskeletal: No acute osseous pathology. IMPRESSION: No acute cardiopulmonary disease/process.
[2024-03-26 09:07] LABS: ALT 26 U/L (4-49); AST 37 U/L (17-59); African American GFR (CKD) >90 (>60 ml/min/1.73 sqM); Alkaline Phosphatase 116 U/L (38-126); Anion Gap 10 mmol/L; Blood Urea Nitrogen 28 mg/dL (9-20); Calcium 9.9 mg/dL (8.4-10.2); Carbon Dioxide 19 mmol/L (22-30); Chloride 102 mmol/L (98-107); Glucose 137 mg/dL (74-99); Magnesium 2.1 mg/dL (1.6-2.3); Non-African American GFR(CKD) 86 (>60 ml/min/1.73 sqM); Potassium 4.6 mmol/L (3.5-5.1); Sodium 131 mmol/L (137-145); Total Bilirubin 1.6 mg/dL (0.2-1.3); Total Protein 6.7 g/dL (6.3-8.2)
[2024-03-26] MEDS: HYDROcodone/APAP 10-325MG 1 EACH TAB PO ONE (10:44)
[2024-03-26] MEDS: METOPROLOL TARTRATE 50 MG TAB PO STA (10:45)
[2024-03-26] MEDS: KETOROLAC 15 MG/ML 1 ML VIAL IVP STA (10:45)
[2024-03-26] MEDS: lisinopriL 10 MG TAB PO STA (10:45)
[2024-03-26 14:07] LABS: Appearance,Urine Clear (Clear); Bilirubin,Urine Negative (Negative); Blood,Urine Negative (Negative); Color,Urine Yellow; Glucose,Urine (UA) 4+ (Negative); Ketones,Urine 1+ (Negative); Leukocyte Esterase,Urine Negative (Negative); Nitrite,Urine Negative (Negative); PH, Urine 5.5 (5.0-8.0); Protein,Urine Trace (Negative); Specific Gravity,Urine 1.029 (1.001-1.035); Urobilinogen,Urine <2.0 mg/dL (<2.0)
[2024-03-26] MEDS ORDERED: NITROGLYCERIN SL TABS 0.4 MG TAB SUBLINGUAL PRN (14:59)
[2024-03-26 18:51] LABS: Magnesium 2.2 mg/dL (1.6-2.3)
[2024-03-26 20:25] LABS: T4, Free (Free Thyroxine) 1.45 ng/dL (0.78-2.19)
--- NOTE | 2024-03-26 20:34 | CT ---
EXAMINATION TYPE: CT brain wo con CT DLP: 1321 mGycm, Automated exposure control for dose reduction was used. DATE OF EXAM: 03/26/2024 8:08 PM COMPARISON: CT head 01/03/2024. CLINICAL INDICATION:Male, 78 years old with history of change in mental status, AMS TECHNIQUE: Brain: Axial CT images of the brain were obtained with coronal and sagittal reformats created and rev iewed. Contrast used: None. Oral contrast used: None. FINDINGS: Brain: Extra-axial spaces: No abnormal extra-axial fluid collections. Ventricular system: Dilatation in proportion to cerebral atrophy. Cerebral parenchyma: Cerebral atrophy. No acute intraparenchymal hemorrhage or mass effect. The griffiths -white junction is well differentiated. Scattered hypoattenuating areas are seen within the white mat ter. Remote lacunar injuries in the bilateral basal ganglia. Cerebellum: Unremarkable. Mass effect: No evidence of midline shift. Intracranial vasculature: Atherosclerotic calcifications of the intracranial vessels. Soft tissues: Normal. Calvarium/osseous structures: No acute depressed skull fracture. Remote nasal bone deformity. Paranasal sinuses and mastoid air cells: Mild scattered paranasal sinus disease. Visualized orbits: Bilateral aphakia IMPRESSION: 1. No acute intracranial process. 2. Remote lacunar injuries along with nonspecific white matter changes likely secondary to chronic mi croangiopathy. 3. Mild sinus mucosal disease.
[2024-03-26] MEDS: allopurinoL 100 MG TAB PO SCH (22:49)
[2024-03-26] MEDS: ATORVASTATIN 20 MG TAB PO SCH (22:49)
[2024-03-26] MEDS: PANTOPRAZOLE 40 MG TABLET PO SCH (22:49)
[2024-03-26] MEDS: APIXABAN 5 MG TAB PO SCH (22:49)
[2024-03-26] MEDS: METOPROLOL TARTRATE 50 MG TAB PO SCH (22:50)
[2024-03-26] MEDS: LORATADINE 10 MG TAB PO SCH (22:50)
[2024-03-26] MEDS: MAGNESIUM OXIDE 400 MG TAB PO SCH (22:50)
--- NOTE | 2024-03-27 05:46 | P.HPIM ---
History of Present Illness H&P Date: 03/26/24 HISTORY OF PRESENT ILLNESS: 78-year-old with active medical history of A-fib, congestive heart failure, multiple joint replacement, chronic lower back pain, hypertension, hyp erlipidemia, chronic edema, BPH, CKD, chronic pain syndrome, and severe debility with severe cervical spine myalgia who was hospitalized last in October 2023 with severe cervical spine radiculopathy and chronic pain syndrome with severe debility not been able to ambulate and walk was in the hospital for over 10 days with multiple complication at the time consistent with acute kidney injury A-fib with RVR recurrent congestive heart failure, anasarca and other. The patient ended up going to [facility] on the [place] and was negative for 4 weeks for rehab which has done well the patient continues to have significant decreased mobility and not been able to gain his full independency. He has been back to the office few times for follow-up last has been severely tired fatigued not been able to ambulate and has problem with his balance and gait. Findings are consistent with no major abnormality more than electrolyte imbalance slight decrease in kidney function mild challenging blood pressure and such. He presented to the emergency department with his transported via EMS because of getting very weak not been able to ambulate and walk had multiple fall worsening symptoms of dyspnea with shortness of breath worsening palpitation on and off same time declined any typical chest pain or angina but has been having significant anasarca, edema, worsening dyspnea with minimal exertion and alert. At the time was in A-fib with RVR with pulse rate running over 120 bpm very irregular, he has been on oral Eliquis along with Cardizem and metoprolol, despite medication he continues to be quite tachycardic symptomatic. Again declined any anginal chest pain. His pulse ox was in the mid 90 blood probably value shows leukocytosis with white blood cell 15,400 kidney function was normal with mild hyponatremia sodium at 131, lactic acid at 1.5 with normal troponin and normal kidney function test. UA did not show any abnormality, TSH was borderline overactive. EKG showed A- fib with RVR pulse rate between 35 beats per minutes. Chest x-ray shows no evidence of pleural effusion or any infiltrate. He will be starting back on Cardizem drip consult cardiology and admit to the hospital above problem. Also evaluating patient mental status at the time shows significant worsening confusion with severe debility despite knowing the surrounding he had quite a bit encephalopathy not been explained the exception of probably hypoxia and mild shortness of breath with congestive heart failure from the A-fib with RVR. REVIEW OF SYSTEMS: CONSTITUTIONAL: Well-developed no acute respiratory distress. EYES: No icterus sclerae, no conjunctivitis. EARS, NOSE, MOUTH, THROAT, and FACE: No sore throat, lymphadenopathy, carotid b ruits or deformity. RESPIRATORY: Mild shortness of breath no cough or wheezes. CARDIOVASCULAR: Positive PND orthopnea palpitation no angina. GASTROINTESTINAL: Distended abdomen with slight nausea constipation. GENITOURINARY: Decreased urine output with mild irritation burning and discomfort. INTEGUMENT/BREAST: Negative for any muscular injury with mild osteoarthritis.. HEMATOLOGIC/LYMPHATIC: Negative for bleed or purpura. MUSCULOSKELTAL: Chronic arthralgia and myalgia. NEURLOGICAL: No LOC, Sz or syncope, blurred vision dizziness or abnormality.. BEHAVIORAL/PSYCH: Negative. ENDOCRINE: Negative. PHYSICAL EXAMINATION: General Appearance: Alert, cooperative, no distress, seems slight discomfort laying in bed. Neck HEENT: Supple, no lymphadenopathy, no thyroid enlargement, no carotid bruits. Significant stiffness and discomfort in the cervical spine area. Lungs: Decreased breath sound the bases positive rhonchi slight crackles in the right base. Chest Wall: Decreased expansion with deep inspiration no tenderness and no deformity was found on exam, no costochondral pain or discomfort. Heart: Irregular rate and rhythm, S1, S2 positive S3 positive systolic murmur. Tachycardia pulse rate currently 130 beats per minutes. Back: Symmetric, no curvature, ROM normal, severe scoliosis with slight CVA tenderness with scar tissue from previous surgery. Abdomen: Soft, non-tender, bowel sounds active all four quadrants, no masses, no organomegaly. Slight distended abdomen. Mild discomfort in the right upper quadrant area. Extremities: Extremities normal, atraumatic, no cyanosis positive edema 1-2+ lower extremity worse on the right of the left side. Foot exam shows slight warmness discomfort and swelling with chronic edema. Pulses: 2+ and symmetric. Skin: Skin color, texture, tugor normal, no rashes or lesions. Neurologic: Alert oriented with slight confusion cranial nerves II through XII intact, no motor deficit, no abnormal balance or gait. ASSESSMENT AND PLAN: _A-fib with RVR: Patient is quite bit tachycardic, started on Cardizem drip, continue metoprolol with possible digoxin patient might require to go on amiodarone, electrolyte and thyroid is requested to make sure there is no other abnormality will consult cardiology given to his last echocardiogram continue to watch his A-fib repeat EKG in the morning. _Worsening congestive heart failure: Combination of acute on chronic mostly diastolic dysfunction with well-preserved ejection fraction from last visit, echocardiogram will be repeated again look for any change or any acute injuries. _Altered mental status with slight confusion: Not clear etiology possibility of TIA or CVA, brain CAT scan was done On admission result compatible with remote likely nerve injury along the nonspecific white matter changes likely secondary to chronic microangiopathic. Also had mild sinus mucosal disease with no hemorrhage or bleed, consult neurology, no significant signs and symptoms of seizure we will try to exclude any other possibility for acute challenge might be because of the problem at this point. _ New onset of CVA: With finding on his CAT scan slight bit abnormal in the brainstem, will order an MRI of the brain for better review of the structure of the brain along with a brainstem looking for small stroke, also echo and carotid ultrasound For further workup on his stroke he is known to have A-fib has been well-managed and still on anticoagulation. _Severe cervical spine radiculopathy with severe cervical spine stenosis and mild bulging disc was seen orthopedic has been on conservative management. _Chronic pain syndrome: Changes hydrocodone up to 10/325 up to 4 times a day as needed continue to be combined with baclofen and Flexeril as needed basis. _Hypertension: With urgent symptoms sometimes remain on Zestril 20 mg daily, amlodipine 10 mg daily, torsemide or furosemide along with diltiazem CD. _Hyperlipidemia: Continue atorvastatin 20 mg a day. _Urinary retention: Love catheter was removed successfully and no retention. _Previous history of GI bleed with no recurrent bleed at this point remain on omeprazole 20 mg daily. _Anticoagulation: Continue patient on Eliquis does not seem there is any sign of bleed. _Debility: Not a clear etiology had combination of metabolic encephalopathy along with central encephalopathy consistent with probably mild degree of memory loss as well. _Multiple fall: Most likely secondary to his cervical spine radiculopathy and generalized weakness with spinal stenosis of the lower lumbar area, again back to do physical therapy and occasional therapy and see if patient can receive to ambulate with help. _Leukocytosis: Not clear etiology with no obvious signs and symptoms of infection that can order procalcitonin still looking into any other underlying including cellulitis, discitis or any other. _GI prophylaxis: Patient will be on Pepcid 20 mg daily. _DVT prophylaxis: Continue Eliquis. CODE STATUS: Full code. Admit patient to the inpatient service for more than 2 night stay. Past Medical History Past Medical History: Atrial Fibrillation, Cancer, Heart Failure, GERD/Reflux, Hyperlipidemia, Hypertension, Osteoarthritis (OA) Additional Past Medical History / Comment(s): diverticular disease, bleeding duodenal ulcer, gastritis, hemorrhoids, chronic low back pain, vertigo at times, skin cancer with removal, CHF History of Any Multi-Drug Resistant Organisms: None Reported Past Surgical History: Appendectomy, Joint Replacement, Orthopedic Surgery, Tonsillectomy Additional Past Surgical History / Comment(s): Total L/R knee arthroplasty, bilateral total hip arthroplasties, bilateral carpal tunnel releases, L foot bone removed/hardware since removed and had spacer placed, steroid back injections, colonoscopies, basal cell skin cancer removed. Past Anesthesia/Blood Transfusion Reactions: No Reported Reaction Additional Past Anesthesia/Blood Transfusion Reaction / Comment(s): . Past Psychological History: No Psychological Hx Reported Smoking Status: Former smoker Past Alcohol Use History: Daily Past Drug Use History: None Reported - Past Family History Brother(s) Family Medical History: Cancer Mother Family Medical History: Cancer Additional Family Medical History / Comment(s): Mother lived to be 90yrs old. breast cancer Father Family Medical History: No Reported History Additional Family Medical History / Comment(s): Father lived to be in his early 80's. Medications and Allergies Home Medications Medication Instructions Recorded Confirmed Type Omeprazole 20 mg PO HS 01/02/19 03/26/24 History Atorvastatin [Lipitor] 20 mg PO HS 09/22/21 03/26/24 History lisinopriL [Zestril] 10 mg PO DAILY 10/18/21 03/26/24 History Apixaban [Eliquis] 5 mg PO BID 11/19/23 03/26/24 History Loratadine [Claritin] 10 mg PO HS 11/19/23 03/26/24 History Magnesium Oxide [Magox 400] 400 mg PO BID 11/19/23 03/26/24 History Digoxin [Digitek] 125 mcg PO DAILY #30 tab 11/26/23 03/26/24 Rx Diltiazem Cd [Cardizem CD] 240 mg PO DAILY #30 cap 11/26/23 03/26/24 Rx Empagliflozin [Jardiance] 10 mg PO DAILY 03/26/24 03/26/24 History Furosemide [Lasix] 40 mg PO DAILY 03/26/24 03/26/24 History HYDROcodone/APAP 10-325MG [[place] 1 tab PO TID PRN 03/26/24 03/26/24 History 10-325] Metoprolol Tartrate [Lopressor] 50 mg PO BID 03/26/24 03/26/24 History Multivitamins, Thera [Multivitamin 1 tab PO DAILY 03/26/24 03/26/24 History (formulary)] allopurinoL [Zyloprim] 200 mg PO HS 03/26/24 03/26/24 History Allergies Allergy/AdvReac Type Severity Reaction Status Date / Time No Known Allergies Allergy Verified 03/26/24 08:57 Physical Exam Vitals: Vital Signs Temp Pulse Pulse Resp BP Pulse Ox 03/26/24 15:10 105 H 03/26/24 10:24 120 H 18 140/86 95 03/26/24 08:31 128 H 16 110/79 94 L 03/26/24 07:30 97.7 F 134 H 20 121/73 96 Intake and Output 03/26/24 03/26/24 03/26/24 06:59 14:59 22:59 Other: Weight 93.44 kg Results CBC & Chem 7: 03/26/24 08:30 03/26/24 08:30 Labs: Abnormal Lab Results - Last 24 Hours (Table) 03/26/24 03/26/24 03/26/24 Range/Units 08:30 08:30 13:45 WBC 15.4 H (3.8-10.6) k/uL RDW 15.9 H (11.5-15.5) % Neutrophils # 13.7 H (1.3-7.7) k/uL Lymphocytes # 0.6 L (1.0-4.8) k/uL Sodium 131 L (137-145) mmol/L Carbon Dioxide 19 L (22-30) mmol/L BUN 28 H (9-20) mg/dL Glucose 137 H (74-99) mg/dL Total Bilirubin 1.6 H (0.2-1.3) mg/dL Urine Protein Trace H (Negative) Urine Glucose (UA) 4+ H (Negative) Urine Ketones 1+ H (Negative)
[2024-03-27] MEDS: DAPAGLIFLOZIN PROPANEDIOL 5 MG TABLET PO SCH (07:55)
[2024-03-27] MEDS: FUROSEMIDE 40 MG TAB PO SCH (07:55)
[2024-03-27] MEDS: lisinopriL 20 MG TAB PO SCH (07:55)
[2024-03-27] MEDS: MULTIVITAMINS, THERA 1 EACH TAB PO SCH (07:55)
[2024-03-27] MEDS: DIGOXIN 125 MCG TAB PO SCH (07:56)
[2024-03-27] MEDS: DILTIAZEM CD 240 MG CAP.ER.24H PO SCH (07:56)
[2024-03-27 08:35] LABS: NT-Pro-B-Type Natriuretic Pept 1640 pg/mL
[2024-03-27 08:46] LABS: Uric Acid 5.2 mg/dL (3.5-8.5)
--- NOTE | 2024-03-27 09:02 | US ---
EXAMINATION TYPE: US carotid duplex BILAT DATE OF EXAM: 03/27/2024 COMPARISON: NONE CLINICAL INDICATION: Male, 79 years old with history of CVA; CVA TECHNIQUE: Carotid duplex ultrasound examination. Indirect Doppler criteria was utilized. FINDINGS: EXAM MEASUREMENTS: RIGHT: Peak Systolic Velocity (PSV) cm/sec ----- Right CCA: 85.1 ----- Right ICA: 146 ----- Right ECA: 154 ICA/CCA ratio: 1.7 RIGHT: End Diastole cm/sec ----- Right CCA: 12.3 ----- Right ICA: 23.6 ----- Right ECA: 0 LEFT: Peak Systolic Velocity (PSV) cm/sec ----- Left CCA: 89.1 ----- Left ICA: 99.2 ----- Left ECA: 93.2 ICA/CCA ratio: 1.1 LEFT: End Diastole cm/sec ----- Left CCA: 0 ----- Left ICA: 22.3 ----- Left ECA: 0 VERTEBRALS (direction of flow): Right Vertebral: Antegrade Left Vertebral: Antegrade Rhythm: Arrhythmia RECEIVER/LABORER NOTES: No significant stenosis seen IMPRESSION: * 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 * Less than 50% stenosis of the left carotid bifurcation. Criteria for Assigning % of Stenosis / Diameter reduction (Estimation based on the indirect measurements of the internal carotid artery velocities (ICA PSV). 1. Normal (no stenosis)=ICA PSV < 125 cm/s: ratio < 2.0: ICA EDV<40 cm/s. 2. Less than 50% stenosis=ICA PSV < 125 cm/s: ratio < 2.0: ICA EDV<40 cm/s. 3. 50 to 69% stenosis=ICA PSV of 125 to 230 cm/s: ration 2.0 ? 4.0: ICA EDV 40-100 cm/s. 4. Greater than 70% stenosis to near occlusion= ICA PSV > 230 cm/s: ratio > 4.0: ICA EDV > 100 cm/s. 5. Near occlusion= ICA PSV velocities may be low or undetectable: variable ratio and ICA EDV. 6. Total occlusion=unable to detect flow.
--- NOTE | 2024-03-27 10:31 | P.PN ---
Subjective Progress Note Date: 03/27/24 HISTORY OF PRESENT ILLNESS: 78-year-old with active medical history of A-fib, congestive heart failure, multiple joint replacement, chronic lower back pain, hypertension, hyperlip idemia, chronic edema, BPH, CKD, chronic pain syndrome, and severe debility with severe cervical spine myalgia who was hospitalized last in October 2023 with severe cervical spine radiculopathy and chronic pain syndrome with severe debility not been able to ambulate and walk was in the hospital for over 10 days with multiple complication at the time consistent with acute kidney injury A-fib with RVR recurrent congestive heart failure, anasarca and other. The patient ended up going to [facility] on the hui and was negative for 4 weeks for rehab which has done well the patient continues to have significant decreased mobility and not been able to gain his full independency. He has been back to the office few times for follow-up last has been severely tired fatigued not been able to ambulate and has problem with his balance and gait. Findings are consistent with no major abnormality more than electrolyte imbalance slight decrease in kidney function mild challenging blood pressure and such. He presented to the emergency department with his transported via EMS because of getting very weak not been able to ambulate and walk had multiple fall worsening symptoms of dyspnea with shortness of breath worsening palpitation on and off same time declined any typical chest pain or angina but has been having significant anasarca, edema, worsening dyspnea with minimal exertion and alert. At the time was in A-fib with RVR with pulse rate running over 120 bpm very irregular, he has been on oral Eliquis along with Cardizem and metoprolol, despite medication he continues to be quite tachycardic symptomatic. Again declined any anginal chest pain. His pulse ox was in the mid 90 blood probably value shows leukocytosis with white blood cell 15,400 kidney function was normal with mild hyponatremia sodium at 131, lactic acid at 1.5 with normal troponin and normal kidney function test. UA did not show any abnormality, TSH was borderline overactive. EKG showed A- fib with RVR pulse rate between 35 beats per minutes. Chest x-ray shows no evidence of pleural effusion or any infiltrate. He will be starting back on Cardizem drip consult cardiology and admit to the hospital above problem. Also evaluating patient mental status at the time shows significant worsening confusion with severe debility despite knowing the surrounding he had quite a bit encephalopathy not been explained the exception of probably hypoxia and mild shortness of breath with congestive heart failure from the A-fib with RVR. 03/27/2024: Patient is more stable through the night, his A-fib is down slightly compared to late yesterday but still running around 100 beats per minutes. Patient be seen cardiology today, also review his CT more consistent with possibility of new CVA MRI was ordered the patient be seen neurology today further workup for his stroke including echo and carotid will be done awaiting for neurology recommendation also with the significant change with his weakness and altered mental status patient will have an EEG to exclude any type of atypical seizure. He has reactive leukocytosis not explained there is no sign of infection currently need to be treated so holding off on antibiotics for now. Will start physical therapy and Occupational Therapy and start up with the social welfare research worker patient is not safe ambulating the way he has for the time being he needs further and more help. He is known to have severe radiculopathy and spinal stenosis of the cervical spine also had spinal stenosis of the lumbar spine making his mobility and ability to walk freely with no help is very limited show need to do more physical therapy and strength for the upper and lower part of his body assume the finding of his MRI positive for stroke further management of stroke will be done accordingly. REVIEW OF SYSTEMS: CONSTITUTIONAL: Well-developed no acute respiratory distress. EYES: No icterus sclerae, no conjunctivitis. EARS, NOSE, MOUTH, THROAT, and FACE: No sore throat, lymphadenopathy, carotid bruits or deformity. RESPIRATORY: Mild shortness of breath no cough or wheezes. CARDIOVASCULAR: Positive PND orthopnea palpitation no angina. GASTROINTESTINAL: Distended abdomen with slight nausea constipation. GENITOURINARY: Decreased urine output with mild irritation burning and discomfort. INTEGUMENT/BREAST: Negative for any muscular injury with mild osteoarthritis.. HEMATOLOGIC/LYMPHATIC: Negative for bleed or purpura. MUSCULOSKELTAL: Chronic arthralgia and myalgia. NEURLOGICAL: No LOC, Sz or syncope, blurred vision dizziness or abnormality.. BEHAVIORAL/PSYCH: Negative. ENDOCRINE: Negative. PHYSICAL EXAMINATION: General Appearance: Alert, cooperative, no distress, seems slight discomfort laying in bed. Neck HEENT: Supple, no lymphadenopathy, no thyroid enlargement, no carotid bruits. Significant stiffness and discomfort in the cervical spine area. Lungs: Decreased breath sound the bases positive rhonchi slight crackles in the right base. Chest Wall: Decreased expansion with deep inspiration no tenderness and no deformity was found on exam, no costochondral pain or discomfort. Heart: Irregular rate and rhythm, S1, S2 positive S3 positive systolic murmur. Tachycardia pulse rate currently 130 beats per minutes. Back: Symmetric, no curvature, ROM normal, severe scoliosis with slight CVA tenderness with scar tissue from previous surgery. Abdomen: Soft, non-tender, bowel sounds active all four quadrants, no masses, no organomegaly. Slight distended abdomen. Mild discomfort in the right upper quadrant area. Extremities: Extremities normal, atraumatic, no cyanosis positive edema 1-2+ lower extremity worse on the right of the left side. Foot exam shows slight warmness discomfort and swelling with chronic edema. Pulses: 2+ and symmetric. Skin: Skin color, texture, tugor normal, no rashes or lesions. Neurologic: Alert oriented with slight confusion cranial nerves II through XII intact, no motor deficit, no abnormal balance or gait. ASSESSMENT AND PLAN: _A-fib with RVR: Patient is quite bit tachycardic, started on Cardizem drip, continue metoprolol with possible digoxin patient might require to go on amiodarone, electrolyte and thyroid is requested to make sure there is no other abnormality will consult cardiology given to his last echocardiogram continue to watch his A-fib repeat EKG in the morning. _Worsening congestive heart failure: Combination of acute on chronic mostly diastolic dysfunction with well-preserved ejection fraction from last visit, echocardiogram will be repeated again look for any change or any acute injuries. _ New onset of CVA: With finding on his CAT scan slight bit abnormal in the brainstem, will order an MRI of the brain for better review of the structure of the brain along with a brainstem looking for small stroke, also echo and carotid ultrasound For further workup on his stroke he is known to have A-fib has been well-managed and still on anticoagulation. _Altered mental status with slight confusion: Could be from the effect of the stroke there is no sign of infection or metabolic abnormality consistent with a problem at this point keep watching symptoms further evaluation for memory loss and mild dementia need to be done as well patient will benefit probably from smaller dose of donepezil or rivastigmine. _Severe cervical spine radiculopathy with severe cervical spine stenosis and mild bulging disc was seen orthopedic has been on conservative management. _Chronic pain syndrome: Changes hydrocodone up to 10/325 up to 4 times a day as needed continue to be combined with baclofen and Flexeril as needed basis. _Hypertension: With urgent symptoms sometimes remain on Zestril 20 mg daily, amlodipine 10 mg daily, torsemide or furosemide along with diltiazem CD. _Hyperlipidemia: Continue atorvastatin 20 mg a day. _Urinary retention: Love catheter was removed successfully and no retention. _Previous history of GI bleed with no recurrent bleed at this point remain on omeprazole 20 mg daily. _Anticoagulation: Continue patient on Eliquis does not seem there is any sign of bleed. _Debility: Not a clear etiology had combination of metabolic encephalopathy along with central encephalopathy consistent with probably mild degree of memory loss as well. _Multiple fall: Most likely secondary to his cervical spine radiculopathy and generalized weakness with spinal stenosis of the lower lumbar area, again back to do physical therapy and occasional therapy and see if patient can receive to ambulate with help. _Leukocytosis: Not clear etiology with no obvious signs and symptoms of i nfection that can order procalcitonin still looking into any other underlying including cellulitis, discitis or any other. Discussion: Patient was admitted to the hospitalist today had significant al tered mental status with worsening confusion severe debility and not been able to ambulate and walk with multiple fall his assessment with CAT scan shows slight abnormality consistent with possible brainstem stroke patient be going for MRI of the brain along with carotid and echo will be seen neurology EEG will be done as well the patient will be seeing cardiology as well for more stability of the A-fib with RVR which patient has been having despite the 3 medication he is on currently 4. There is reactive leukocytosis not clear etiology still watching carefully for any atypical sign and symptom of infection not been found so far. Objective - Vital Signs Vital signs: Vital Signs Temp 98.6 F 03/27/24 07:50 Pulse 117 H 03/27/24 07:50 Resp 17 03/27/24 07:50 BP 118/74 03/27/24 07:50 Pulse Ox 94 L 03/27/24 07:50 FiO2 Intake & Output 03/26/24 03/27/24 03/27/24 18:59 06:59 18:59 Output Total 700 Balance -700 Weight 93.44 kg 94.5 kg Output: Urine 700 Straight 700 Other: Voiding Method Urinal - Labs CBC & Chem 7: 03/26/24 08:30 03/26/24 08:30 Labs: Abnormal Lab Results - Last 24 Hours (Table) 03/26/24 03/26/24 03/26/24 Range/Units 08:30 08:30 13:45 WBC 15.4 H (3.8-10.6) k/uL RDW 15.9 H (11.5-15.5) % Neutrophils # 13.7 H (1.3-7.7) k/uL Lymphocytes # 0.6 L (1.0-4.8) k/uL Sodium 131 L (137-145) mmol/L Carbon Dioxide 19 L (22-30) mmol/L BUN 28 H (9-20) mg/dL Glucose 137 H (74-99) mg/dL Total Bilirubin 1.6 H (0.2-1.3) mg/dL TSH (0.465-4.680) mIU/L Urine Protein Trace H (Negative) Urine Glucose (UA) 4+ H (Negative) Urine Ketones 1+ H (Negative) 03/26/24 Range/Units 18:08 WBC (3.8-10.6) k/uL RDW (11.5-15.5) % Neutrophils # (1.3-7.7) k/uL Lymphocytes # (1.0-4.8) k/uL Sodium (137-145) mmol/L Carbon Dioxide (22-30) mmol/L BUN (9-20) mg/dL Glucose (74-99) mg/dL Total Bilirubin (0.2-1.3) mg/dL TSH 0.304 L (0.465-4.680) mIU/L Urine Protein (Negative) Urine Glucose (UA) (Negative) Urine Ketones (Negative)
[2024-03-27 10:46] LABS: C Reactive Protein 14.2 mg/dL (<1.0)
--- NOTE | 2024-03-27 12:08 | P.CNNES ---
History of Present Illness Consult date: 03/27/24 Requesting physician: Chris Rice Reason for Consult: encephalopathy and change in MS History of Present Illness: This is an 79-year-old gentleman who presents to the hospital because of generalized weakness fatigue over the last 1 week. Patient's is at bedside who helps with some of the history. Patient states that he has been having fatigue recently just generalized weak. Denies any focal weakness. Per the w simin she stated that the patient has been generalized weak for 1 week and been having recurrent cough with sputum that is greenish in coloration over the last at least 4 days. She stated that he is very weak that he cannot get out of the chair and it is throughout the day it is not worse in the morning or at night it is dry today. No ptosis of the eyes. No focal weakness. No speech difficulty. He does have a history of hypertension. He drinks heavily daily and the patient does acknowledge that. Per the there is a significant alcohol use in his family. Patient is an ex tobacco user. Patient has a history of a atrial fibrillation and he is on Eliquis. He is compliant taking his a nticoagulation. No history of stroke. Per the or the patient there is no episode of confusion to their knowledge. Some other workup during his hospital visit consisted of: Patient is afebrile. He is tachycardic as high as 117 Sodium is 131, TSH is 0.304 and the free T4 is 1.45 CT of the head is reported as no acute intracranial process. Remote lacunar injuries along with nonspecific white matter changes likely secondary due to chronic microangiopathy. Mild sinus mucosal disease. I personally reviewed the CT and agree there is no acute or subacute ischemia. Carotid Duplex is reported as 50 to 69% stenosis of the right carotid bifurcation. Less than 50% stenosis of the left carotid bifurcation EKG is reported as atrial fibrillation with RVR Review of Systems The positive and negative as per HPI. Past Medical History Past Medical History: Atrial Fibrillation, Cancer, Heart Failure, GERD/Reflux, Hyperlipidemia, Hypertension, Osteoarthritis (OA) Additional Past Medical History / Comment(s): diverticular disease, bleeding duodenal ulcer, gastritis, hemorrhoids, chronic low back pain, vertigo at times, skin cancer with removal, CHF History of Any Multi-Drug Resistant Organisms: None Reported Past Surgical History: Appendectomy, Joint Replacement, Orthopedic Surgery, Tonsillectomy Additional Past Surgical History / Comment(s): Total L/R knee arthroplasty, bilateral total hip arthroplasties, bilateral carpal tunnel releases, L foot bone removed/hardware since removed and had spacer placed, steroid back injections, colonoscopies, basal cell skin cancer removed. Past Anesthesia/Blood Transfusion Reactions: No Reported Reaction Additional Past Anesthesia/Blood Transfusion Reaction / Comment(s): . Past Psychological History: No Psychological Hx Reported Smoking Status: Former smoker Past Alcohol Use History: Daily Past Drug Use History: None Reported - Past Family History Brother(s) Family Medical History: Cancer Mother Family Medical History: Cancer Additional Family Medical History / Comment(s): Mother lived to be 90yrs old. breast cancer Father Family Medical History: No Reported History Additional Family Medical History / Comment(s): Father lived to be in his early 80's. Medications and Allergies Home Medications Medication Instructions Recorded Confirmed Type Omeprazole 20 mg PO HS 01/02/19 03/26/24 History Atorvastatin [Lipitor] 20 mg PO HS 09/22/21 03/26/24 History lisinopriL [Zestril] 10 mg PO DAILY 10/18/21 03/26/24 History Apixaban [Eliquis] 5 mg PO BID 11/19/23 03/26/24 History Loratadine [Claritin] 10 mg PO HS 11/19/23 03/26/24 History Magnesium Oxide [Magox 400] 400 mg PO BID 11/19/23 03/26/24 History Digoxin [Digitek] 125 mcg PO DAILY #30 tab 11/26/23 03/26/24 Rx Diltiazem Cd [Cardizem CD] 240 mg PO DAILY #30 cap 11/26/23 03/26/24 Rx Empagliflozin [Jardiance] 10 mg PO DAILY 03/26/24 03/26/24 History Furosemide [Lasix] 40 mg PO DAILY 03/26/24 03/26/24 History HYDROcodone/APAP 10-325MG [[place] 1 tab PO TID PRN 03/26/24 03/26/24 History 10-325] Metoprolol Tartrate [Lopressor] 50 mg PO BID 03/26/24 03/26/24 History Multivitamins, Thera [Multivitamin 1 tab PO DAILY 03/26/24 03/26/24 History (formulary)] allopurinoL [Zyloprim] 200 mg PO HS 03/26/24 03/26/24 History Allergies Allergy/AdvReac Type Severity Reaction Status Date / Time No Known Allergies Allergy Verified 03/26/24 08:57 Physical Examination - Vital Signs Vital Signs: Vital Signs Temp Pulse Pulse Resp BP BP Pulse Ox 03/27/24 11:51 97.7 F 81 16 99/59 98 03/27/24 07:50 98.6 F 117 H 17 118/74 94 L 03/27/24 04:00 99.1 F 86 20 132/83 93 L 03/27/24 02:00 98 20 03/26/24 23:47 99.6 F 117 H 19 101/71 94 L 03/26/24 22:00 125 H 19 110/80 03/26/24 21:00 121 H 23 130/81 93 L 03/26/24 20:00 107/65 03/26/24 19:00 100 23 108/61 03/26/24 18:00 112 H 24 121/93 03/26/24 17:00 93 17 106/27 03/26/24 16:00 98 24 117/84 03/26/24 15:10 105 H 03/26/24 15:00 93 14 132/84 03/26/24 14:00 81 14 107/79 03/26/24 13:00 90 9 L 100/73 03/26/24 12:00 89 17 107/67 93 L Intake and Output 03/26/24 03/27/24 03/27/24 22:59 06:59 14:59 Intake Total 236 Output Total 700 718 Balance -700 -482 Intake: Oral 236 Output: Urine 700 200 Straight 700 Post Void Residual 518 Other: Voiding Method Urinal Urinal # Bowel Movements 1 Weight 94.5 kg GENERAL: The patient is sitting in a recliner chair and is not in acute distress. NEUROLOGICAL: Higher mental function: The patient is awake, alert, oriented to self, place and time. Patient is following commands. No aphasia and no neglect. Cranial nerves: The pupils are round, equal and reactive to light and accommodation. Visual rodriguez are full to confrontation throughout. Extraocular movement is intact no nystagmus is noted. Facial sensation is normal to touch throughout. The facial strength is mild left lower facial weakness (he is unsure if new or old). Hearing is mildly decreased bilaterally to hand rub. Tongue is midline and moved [id number] without any difficulty. No dysarthria is noted. Shoulder shrug is normal bilaterally. Motor: The strength is 5 over 5 throughout. Normal tone and bulk. Cerebellum: Normal finger to nose bilaterally. Sensation: Sensation is normal to touch throughout. Reflexes (right/left): 2+ in uppers but in lowers deferred because of coope ration. Plantars are downgoing bilaterally. Results - Laboratory Findings CBC and BMP: 03/26/24 08:30 03/26/24 08:30 Abnormal Lab Findings: Abnormal Labs 03/26/24 03/26/24 03/26/24 08:30 08:30 13:45 WBC 15.4 H RDW 15.9 H Neutrophils # 13.7 H Lymphocytes # 0.6 L Sodium 131 L Carbon Dioxide 19 L BUN 28 H Glucose 137 H Total Bilirubin 1.6 H C-Reactive Protein TSH Urine Protein Trace H Urine Glucose (UA) 4+ H Urine Ketones 1+ H 03/26/24 03/27/24 18:08 07:39 WBC RDW Neutrophils # Lymphocytes # Sodium Carbon Dioxide BUN Glucose Total Bilirubin C-Reactive Protein 14.2 H TSH 0.304 L Urine Protein Urine Glucose (UA) Urine Ketones Assessment and Plan Assessment: This is an 79-year-old gentleman who presents emergency department because of fatigue and generalized weakness over the last 1 week. Is also having produ ctive cough with green sputum over the last 4 days. On examination patient had left lower facial weakness patient is unaware if this is new or old. Left lower facial weakness probable acute ischemic stroke Generalized weakness possible due to recent upper respiratory tract infection in which she has been having recurrent coughs with green sputum as well as metabolic derangement Right carotid stenosis of 50 to 69% on carotid duplex Mild hyponatremia Underlying history of atrial fibrillation on Eliquis Heavy alcohol use on a daily basis Plan: MRI of the brain and EEG is ordered by the primary team If the MRI of the brain reveals stroke over the right hemisphere then recommend vascular surgery team because of the carotid stenosis of 50 to 69% stenosis. Lipid panel and 2D echo was ordered and is pending. Patient is on home dose of Eliquis 5 mg twice daily. If he does have a stroke then recommend adding aspirin 81 mg in addition. He is on Lipitor 20 mg nightly and I modified it to 40 mg nightly I ordered vitamin B12, folate Continue neurochecks Cardiac monitoring PT OT are consulted Patient was counseled on decrease consumption of alcohol I started the patient on thiamine 100 mg daily and recommend CIWA protocol for significant alcohol use but will defer the management to the primary team Will defer the rest of the medical management to the primary team and other specialists For DVT prophylaxis patient is on Eliquis Plan discussed with the patient, his was at bedside and his nurse Thank you for the consultation. Time with Patient: Greater than 30
[2024-03-27] MEDS: THIAMINE 100 MG TAB PO SCH (14:10)
[2024-03-27 17:09] LABS: Chol/HDL Ratio 1.92 Ratio; LDL Cholesterol,Calculated 39.6 mg/dL (0.0-131.0)
--- NOTE | 2024-03-27 18:55 | CA ---
Transthoracic Echo Report Name: Jeremy Francois Age: 79 Gender: M : 1945 Exam Date: 03/27/2024 13:48 Exam Location: [facility] Ht (in): 72 Wt (lb): 208 Ordering Physician: Chris Rice MD Attending/Referring Phys: Automotive Designer Cesilia Sol RDCS Procedure CPT: Indications: lvfunction Cardiac Hx: Technical Quality: Fair Contrast 1: Total Dose (mL): Contrast 2: Total Dose (mL): MEASUREMENTS (Male / Female) Normal Values 2D ECHO LV Diastolic Diameter PLAX 4.7 cm 4.2 - 5.9 / 3.9 - 5.3 cm LV Systolic Diameter PLAX 3.6 cm IVS Diastolic Thickness 1.5 cm 0.6 - 1.0 / 0.6 - 0.9 cm LVPW Diastolic Thickness 1.4 cm 0.6 - 1.0 / 0.6 - 0.9 cm LV Relative Wall Thickness 0.6 RV Internal Dim ED PLAX 3.1 cm LVOT Diameter 1.9 cm LA Systolic Diameter LX 4.9 cm 3.0 - 4.0 / 2.7 - 3.8 cm LV Diastolic Volume MOD 4C 36.8 cm??? LV Systolic Volume MOD 4C 16.9 cm??? LV Ejection Fraction MOD 4C 53.9 % LV Cardiac Index MOD 4C 710.0 cm???/min???m??? LV Diastolic Length 4C 5.8 cm LV Systolic Length 4C 4.9 cm M-MODE Aortic Root Diameter MM 4.2 cm LA Systolic Diameter MM 4.6 cm LA Ao Ratio MM 1.1 AV Cusp Separation MM 1.4 cm DOPPLER AV Peak Velocity 272.8 cm/s AV Peak Gradient 29.8 mmHg AV Mean Velocity 191.3 cm/s AV Mean Gradient 16.8 mmHg AV Velocity Time Integral 48.9 cm LVOT Peak Velocity 98.3 cm/s LVOT Peak Gradient 3.9 mmHg LVOT Velocity Time Integral 19.9 cm LVOT Stroke Volume 59.0 cm??? LVOT Stroke Volume Index 27.2 ml/m??? LVOT Cardiac Index 2110.8 cm???/min???m??? AV Area Cont Eq vti 1.2 cm??? AV Area Cont Eq pk 1.1 cm??? MV E' Velocity 7.8 cm/s TR Peak Velocity 263.6 cm/s TR Peak Gradient 27.8 mmHg Right Ventricular Systolic Press 37.8 mmHg FINDINGS Left Ventricle Left ventricular ejection fraction is estimated at 55-60 %. Moderately increased septal wall thickness. No obvious regional wall motion abnormalities. Left ventricular cavity size normal. Right Ventricle Moderate right ventricular dilatation. Mild pulmonary hypertension. Right Atrium Moderate right atrial dilatation. Left Atrium Moderately increased left atrial diameter. Mitral Valve Mitral valve thickened. Mild mitral annular calcification. Mild mitral regurgitation. Aortic Valve Trileaflet aortic valve. No aortic regurgitation. Mild aortic stenosis with a peak gradient of 29 mmHg and a mean gradient of 16mmHg. Tricuspid Valve Structurally normal tricuspid valve. [id number] tricuspid regurgitation. No tricuspid stenosis. Pulmonic Valve Structurally normal pulmonic valve. Trace pulmonic regurgitation. No pulmonic stenosis. Pericardium No pericardial or pleural effusion. Echo free space anterior to the right ventricle likely represents a fat pad. Aorta Mildly dilated aortic annulus. CONCLUSIONS Diagnosis atrial fibrillation with RVR Preserved LV send systolic function, increased LV mass RV enlargement Biatrial enlargement Mild aortic stenosis peak gradient 30 mmHg Previewed by: Dr. Ras Garrett MD (Electronically Signed) Final Date: 27 March 2024 18:54
[2024-03-27] MEDS: ATORVASTATIN 40 MG TAB PO SCH (20:20)
--- NOTE | 2024-03-27 22:28 | P.CRDCN ---
History of Present Illness Consult date: 03/27/24 History of present illness: HISTORY OF PRESENTING ILLNESS 78-year-old with PMH of A-fib, CHF, chronic A-fib, hypertension dyslipidemia, chronic edema, chronic pain, He presented because of getting weak, difficulty to walk, multiple falls, shortness of breath On exam his ECG showed A-fib with RVR, Chest x-ray did not show significant pulmonary congestion Labs shows WBC 15, hemoglobin 14, sodium 131, BUN 28, creatinine 0.7, tropes x 3 were negative, BNP 1600 REVIEW OF SYSTEMS Could not obtain as patient appears to be confused PHYSICAL EXAMINATION Vital signs reviewed. Head: Normocephalic. Eyes: Sclerae nonicteric. Neck: Brisk carotid upstroke, elevated jugular venous distention. Lungs: Diminished breath sounds with mild crackles in bilateral bases Heart: Irregularly irregular pulse, systolic murmur audible. Abdomen: Soft nontender, positive bowel sounds. Extremities: 2+ edema bilateral lower extremity. Neuro: Confused, drowsy, but arousable. Detailed neuro exam was not performed. ASSESSMENT A-fib with RVR Mild to moderate HFpEF exacerbation Altered mental status, metabolic encephalopathy Possible CVA Debility and frailty Multiple falls Generalized weakness Other multiple comorbidities Cardiac testing Echo shows EF of 50 to 55%, severe biatrial dilatation, mild RV dilatation, mild aortic stenosis PLAN Continue Eliquis for now. Will evaluate further in safety of systemic anticoagulation after discussing with family and after assessing him for stability on his foot PT OT evaluation Lipitor 40. Discontinue Farxiga because of concerns of UTI. On digoxin 125 mcg daily, will continue Cardizem 120 mg daily Lisinopril 10 mg twice daily, metoprolol 50 mg twice daily Pj Garcia MD, FACC, RPVI Thank you for allowing [facility] to participate in this patient's care. Feel free to reach out in case of any followup questions. Past Medical History Past Medical History: Atrial Fibrillation, Cancer, Heart Failure, GERD/Reflux, Hyperlipidemia, Hypertension, Osteoarthritis (OA) Additional Past Medical History / Comment(s): diverticular disease, bleeding duodenal ulcer, gastritis, hemorrhoids, chronic low back pain, vertigo at times, skin cancer with removal, CHF History of Any Multi-Drug Resistant Organisms: None Reported Past Surgical History: Appendectomy, Joint Replacement, Orthopedic Surgery, Tonsillectomy Additional Past Surgical History / Comment(s): Total L/R knee arthroplasty, bilateral total hip arthroplasties, bilateral carpal tunnel releases, L foot bone removed/hardware since removed and had spacer placed, steroid back injections, colonoscopies, basal cell skin cancer removed. Past Anesthesia/Blood Transfusion Reactions: No Reported Reaction Additional Past Anesthesia/Blood Transfusion Reaction / Comment(s): . Past Psychological History: No Psychological Hx Reported Smoking Status: Former smoker Past Alcohol Use History: Daily Past Drug Use History: None Reported - Past Family History Brother(s) Family Medical History: Cancer Mother Family Medical History: Cancer Additional Family Medical History / Comment(s): Mother lived to be 90yrs old. breast cancer Father Family Medical History: No Reported History Additional Family Medical History / Comment(s): Father lived to be in his early 80's. Medications and Allergies Home Medications Medication Instructions Recorded Confirmed Type Omeprazole 20 mg PO HS 01/02/19 03/26/24 History Atorvastatin [Lipitor] 20 mg PO HS 09/22/21 03/26/24 History lisinopriL [Zestril] 10 mg PO DAILY 10/18/21 03/26/24 History Apixaban [Eliquis] 5 mg PO BID 11/19/23 03/26/24 History Loratadine [Claritin] 10 mg PO HS 11/19/23 03/26/24 History Magnesium Oxide [Magox 400] 400 mg PO BID 11/19/23 03/26/24 History Digoxin [Digitek] 125 mcg PO DAILY #30 tab 11/26/23 03/26/24 Rx Diltiazem Cd [Cardizem CD] 240 mg PO DAILY #30 cap 11/26/23 03/26/24 Rx Empagliflozin [Jardiance] 10 mg PO DAILY 03/26/24 03/26/24 History Furosemide [Lasix] 40 mg PO DAILY 03/26/24 03/26/24 History HYDROcodone/APAP 10-325MG [Agar 1 tab PO TID PRN 03/26/24 03/26/24 History 10-325] Metoprolol Tartrate [Lopressor] 50 mg PO BID 03/26/24 03/26/24 History Multivitamins, Thera [Multivitamin 1 tab PO DAILY 03/26/24 03/26/24 History (formulary)] allopurinoL [Zyloprim] 200 mg PO HS 03/26/24 03/26/24 History Allergies Allergy/AdvReac Type Severity Reaction Status Date / Time No Known Allergies Allergy Verified 03/26/24 08:57 Physical Exam Vitals: Vital Signs Temp Pulse Resp BP Pulse Ox 03/27/24 20:00 98.3 F 124 H 19 120/72 95 03/27/24 15:52 95 03/27/24 15:49 94 15 100/62 95 03/27/24 11:51 97.7 F 81 16 99/59 98 03/27/24 07:50 98.6 F 117 H 17 118/74 94 L 03/27/24 04:00 99.1 F 86 20 132/83 93 L 03/27/24 02:00 98 20 03/26/24 23:47 99.6 F 117 H 19 101/71 94 L Intake and Output 03/27/24 03/27/24 03/27/24 06:59 14:59 22:59 Intake Total 354 660 Output Total 944 869 8904 Balance -700 -364 -340 Intake: Oral 354 660 Output: Urine 828 147 0143 Straight 700 Post Void Residual 518 Other: Voiding Method Urinal Indwelling Catheter Indwelling Catheter # Bowel Movements 1 Weight 94.5 kg Results 03/26/24 08:30 03/26/24 08:30 Lipids 03/27/24 Range/Units 07:39 Triglycerides 58.00 (0.00-149.00) mg/dL Cholesterol 107.00 (0.00-200.00) mg/dL HDL Cholesterol 55.80 (40.00-60.00) mg/dL Cholesterol/HDL Ratio 1.92 Ratio Current Medications Generic Name Dose Route Start Last Admin Trade Name Freq PRN Reason Stop Dose Admin Hydrocodone Bitart/Acetaminophen 1 each 03/26/24 15:03 Hydrocodone/Apap 10-325mg 1 Each Tab PO TID PRN Pain Allopurinol 200 mg 03/26/24 21:00 03/27/24 20:20 Allopurinol 100 Mg Tab PO 200 mg HS CELESTINA Administration Apixaban 5 mg 03/26/24 21:00 03/27/24 20:20 Apixaban 5 Mg Tab PO 5 mg BID CELESTINA Administration Protocol Atorvastatin Calcium 40 mg 03/27/24 21:00 03/27/24 20:20 Atorvastatin 40 Mg Tab PO 40 mg HS CELESTINA Administration Digoxin 125 mcg 03/27/24 09:00 03/27/24 07:56 Digoxin 125 Mcg Tab PO 125 mcg DAILY CELESTINA Administration Diltiazem HCl 240 mg 03/27/24 09:00 03/27/24 07:56 Diltiazem Cd 240 Mg Cap.Er.24h PO 240 mg DAILY CELESTINA Administration Furosemide 40 mg 03/27/24 09:00 03/27/24 07:55 Furosemide 40 Mg Tab PO 40 mg DAILY CELESTINA Administration Lisinopril 10 mg 03/27/24 09:00 03/27/24 07:55 Lisinopril 20 Mg Tab PO 10 mg DAILY CELESTINA Administration Loratadine 10 mg 03/26/24 21:00 03/27/24 20:20 Loratadine 10 Mg Tab PO 10 mg HS CELESTINA Administration Magnesium Oxide 400 mg 03/26/24 21:00 03/27/24 20:20 Magnesium Oxide 400 Mg Tab PO 400 mg BID CELESTINA Administration Metoprolol Tartrate 50 mg 03/26/24 21:00 03/27/24 20:20 Metoprolol Tartrate 50 Mg Tab PO 50 mg BID CELESTINA Administration Multivitamins 1 each 03/27/24 09:00 03/27/24 07:55 Multivitamins, Thera 1 Each Tab PO 1 each DAILY CELESTINA Administration Nitroglycerin 0.4 mg 03/26/24 14:59 Nitroglycerin Sl Tabs 0.4 Mg Tab SUBLINGUAL Q5M PRN Chest Pain Pantoprazole Sodium 40 mg 03/26/24 21:00 03/27/24 20:20 Pantoprazole 40 Mg Tablet PO 40 mg HS [facility] Administration Thiamine HCl 100 mg 03/27/24 13:00 03/27/24 14:10 Thiamine 100 Mg Tab PO 100 mg DAILY CELESTINA Administration Intake and Output 03/27/24 03/27/24 03/27/24 06:59 14:59 22:59 Intake Total 354 660 Output Total 600 151 6917 Balance -700 364 -340 Intake: Oral 354 660 Output: Urine 269 722 7385 Straight 700 Post Void Residual 518 Other: Voiding Method Urinal Indwelling Catheter Indwelling Catheter # Bowel Movements 1 Weight 94.5 kg 03/26/24 08:30 03/26/24 08:30
--- NOTE | 2024-03-28 02:00 | EEG ---
ELECTROENCEPHALOGRAM REPORT CLINICAL HISTORY: This is an 79-year-old gentleman with altered mental status. The video EEG is obtained to evaluate for seizure epileptiform activity. RELEVANT MEDICATIONS: The patient is not on any antiepileptic drugs. EEG TYPE: The EEG type is a routine 21-channel EEG with video using the 10/20 electrode placement system. DESCRIPTION: Wakefulness and drowsiness are obtained. During awake state, the posterior- dominant rhythm consists of [id number] voltage of 8.5 to 9 hertz activity that is well modulated, well sustained. There is no physiological stage 2 sleep architecture. There is no focal slowing. Interictal and ictal is none. ACTIVATION PROCEDURE: Photic stimulation did not evoke a posterior driving response. There is no abnormality during the photic stimulation. Hyperventilation is not performed. CLINICAL INTERPRETATION: This is a normal routine EEG. There is no focal slowing, epileptiform discharge, or seizure on the EEG. A normal routine EEG does not rule out underlying epilepsy. Clinical correlation is recommended. IBETH / JASPER: [id number] / RYLIE
[2024-03-28] MEDS ORDERED: DAPAGLIFLOZIN PROPANEDIOL 10 MG TABLET PO SCH (09:00)
--- NOTE | 2024-03-28 10:54 | MR ---
EXAMINATION TYPE: MR brain wo/w con DATE OF EXAM: 03/28/2024 9:41 AM CLINICAL INDICATION:Male, 79 years old with history of CVA; PHH, CVA. COMPARISON: CT head 03/26/2024 TECHNIQUE: Multi planar, multi sequence MR imaging of the brain was performed without and with IV Con trast: 9 cc Gadavist FINDINGS: No evidence of diffusion restriction to suggest acute/subacute infarct. There is moderate to severe generalized brain atrophy with corresponding enlargement of the ventricle s and CSF spaces. There are extensive patchy and confluent T2 FLAIR white matter signal hyperintensit ies bilaterally, as well some individually identifiable focal lesions, likely all sequela of chronic microvascular ischemia. No evidence of intracranial hemorrhage, midline shift, mass effect, or extra-axial fluid collection. The major vascular flow voids at the base of brain are preserved. Basilar cisterns are patent. After administration of gadolinium, no mass or other abnormal enhancement is seen. Craniocervical junction and posterior fossa appear unremarkable for acute process. Some degenerative changes of the upper cervical spine are seen. No focal calvarial signal abnormalities are suggested. No abnormal fluid signal in the mastoid air ce lls or paranasal sinuses. Mild mucosal thickening of multiple paranasal sinuses again seen, appears g reatest in the right maxillary. The orbits appear symmetric and unremarkable. IMPRESSION: 1. No evidence of intracranial mass, acute/subacute infarct, or hemorrhage. 2. Moderate to severe global atrophy with associated ventriculomegaly. 3. Extensive white matter changes, likely related to chronic microvascular ischemia.
[2024-03-28 12:10] LABS: HCT 40.3 % (39.0-53.0); HGB 13.5 gm/dL (13.0-17.5); MCH 33.2 pg (25.0-35.0); MCHC 33.5 g/dL (31.0-37.0); MCV 99.3 fL (80.0-100.0); Macrocytosis Slight; Mean Platelet Volume 8.6; Platelet Count 157 k/uL (150-450); RBC 4.06 m/uL (4.30-5.90); RDW 14.9 % (11.5-15.5); WBC 10.6 k/uL (3.8-10.6)
[2024-03-28 12:21] LABS: ALT 59 U/L (4-49); AST 58 U/L (17-59); African American GFR (CKD) >90 (>60 ml/min/1.73 sqM); Albumin 3.3 g/dL (3.5-5.0); Alkaline Phosphatase 110 U/L (38-126); Anion Gap 6 mmol/L; Blood Urea Nitrogen 21 mg/dL (9-20); Calcium 9.1 mg/dL (8.4-10.2); Carbon Dioxide 21 mmol/L (22-30); Chloride 101 mmol/L (98-107); Glucose 103 mg/dL (74-99); Non-African American GFR(CKD) >90 (>60 ml/min/1.73 sqM); Sodium 128 mmol/L (137-145); Total Bilirubin 1.7 mg/dL (0.2-1.3); Total Protein 5.9 g/dL (6.3-8.2)
--- NOTE | 2024-03-28 14:21 | P.PN ---
Subjective Progress Note Date: 03/28/24 I am following up with the patient and according to the his left facial droop is old and this is not acute. Otherwise no acute neurological issues. Patient is feeling mildly better today. Objective - Vital Signs Vital signs: Vital Signs Temp 98.3 F 03/28/24 08:00 Pulse 96 03/28/24 12:00 Resp 16 03/28/24 08:00 BP 96/60 03/28/24 12:00 Pulse Ox 95 03/28/24 12:00 FiO2 Intake & Output 03/27/24 03/28/24 03/28/24 18:59 06:59 18:59 Intake Total 1014 500 Output Total 1718 750 800 Balance -704 -750 -300 Weight 89.5 kg Intake: Oral 1014 500 Output: Urine 1200 750 800 Post Void Residual 518 Other: Voiding Method Indwelling Catheter Indwelling Catheter Indwelling Catheter # Bowel Movements 1 - Exam GENERAL: The patient is sitting in a recliner chair and is not in acute distress. NEUROLOGICAL: Higher mental function: The patient is mildly drowsy but is awakeable to voice, oriented to self, place and time. Patient is following commands. No aphasia and no neglect. Cranial nerves: The pupils are round, equal and reactive to light and accommodation. Visual rodriguez are full to confrontation throughout. Extraocular movement is intact no nystagmus is noted. Facial sensation is normal to touch throughout. The facial strength is mild left lower facial weakness (he is unsure if new or old). Hearing is mildly decreased bilaterally to hand rub. Tongue is midline and moved [id number] without any difficulty. No dysarthria is noted. Shoulder shrug is normal bilaterally. Motor: The strength is 5 over 5 throughout. Normal tone and bulk. Cerebellum: Normal finger to nose bilaterally. Sensation: Sensation is normal to touch throughout. Some other workup during his hospital visit consisted of: Patient is afebrile. He is tachycardic as high as 117 Sodium is 131, TSH is 0.304 and the free T4 is 1.45 Lipid panel is triglyceride 58, cholesterol 107, LDL is 39 and HDL is 55 CT of the head is reported as no acute intracranial process. Remote lacunar injuries along with nonspecific white matter changes likely secondary due to chronic microangiopathy. Mild sinus mucosal disease. I personally reviewed the CT and agree there is no acute or subacute ischemia. Carotid Duplex is reported as 50 to 69% stenosis of the right carotid bifurcation. Less than 50% stenosis of the left carotid bifurcation EKG is reported as atrial fibrillation with RVR 2D echo: Preserved left ventricular systolic function and increased left ventricular mass. Right ventricular enlargement. Biatrial enlargement. Routine EEG: Normal. MRI Brain: It is reported as no evidence of intracranial mass, acute/subacute infarct or hemorrhage. Moderate-severe global atrophy with associated ventriculomegaly. Extensive white matter changes, likely related to chronic microvascular ischemia. I personally reviewed the MRI and I do agree there is no acute or subacute ischemia. I do agree the patient has moderate to severe global atrophy. - Labs CBC & Chem 7: 03/28/24 10:29 03/28/24 10:29 Labs: Abnormal Lab Results - Last 24 Hours (Table) 03/27/24 03/28/24 03/28/24 Range/Units 07:39 10:29 10:29 RBC 4.06 L (4.30-5.90) m/uL ESR 24 H (0-20) mm/Hr Sodium 128 L (137-145) mmol/L Carbon Dioxide 21 L (22-30) mmol/L BUN 21 H (9-20) mg/dL Glucose 103 H (74-99) mg/dL Total Bilirubin 1.7 H (0.2-1.3) mg/dL ALT 59 H (4-49) U/L Total Protein 5.9 L (6.3-8.2) g/dL Albumin 3.3 L (3.5-5.0) g/dL Assessment and Plan Assessment: This is an 79-year-old gentleman who presents emergency department because of fatigue and generalized weakness over the last 1 week. Is also having productive cough with green sputum over the last 4 days. On examination patient had left lower facial weakness patient is unaware if this is new or old. Generalized weakness possible due to recent upper respiratory tract infection in which she has been having recurrent coughs with green sputum as well as metabolic derangement Right carotid stenosis of 50 to 69% on carotid duplex seems more asymptomatic Chronic left lower facial droop Mild encephalopathy seems more metabolic encephalopathy. MRI Brain is negative for acute or subacute stroke. EEG is normal. Mild hyponatremia Underlying history of atrial fibrillation on Eliquis Heavy alcohol use on a daily basis Plan: Patient is on home dose of Eliquis 5 mg twice daily. On Lipitor 40 mg nightly Pending vitamin B12, folate Continue neurochecks Cardiac monitoring PT OT are consulted Patient was counseled on decreasing consumption of alcohol I started the patient on thiamine 100 mg daily and recommend CIWA protocol for significant alcohol use but will defer the management to the primary team Will defer the rest of the medical management to the primary team and other specialists For DVT prophylaxis patient is on Eliquis Plan discussed with the patient, his was at bedside and his nurse Will follow-up with patient sporadically. Dr. Roche will resume neurology service on 03/30/2024 A.M. Time with Patient: Less than 30
--- NOTE | 2024-03-28 18:57 | P.PN ---
Subjective Progress Note Date: 03/28/24 HISTORY OF PRESENTING ILLNESS 78-year-old with PMH of A-fib, CHF, chronic A-fib, hypertension dyslipidemia, chronic edema, chronic pain, He presented because of getting weak, difficulty to walk, multiple falls, shortness of breath On exam his ECG showed A-fib with RVR, Chest x-ray did not show significant pulmonary congestion Labs shows WBC 15, hemoglobin 14, sodium 131, BUN 28, creatinine 0.7, tropes x 3 were negative, BNP 1600 Progress note 03/28/2024 Patient is doing well from cardiovascular standpoint. He is still maintaining atrial fibrillation with RVR. He denies any chest pain chest pressure. Still appears confused PHYSICAL EXAMINATION Vital signs reviewed. Head: Normocephalic. Eyes: Sclerae nonicteric. Neck: Brisk carotid upstroke, elevated jugular venous distention. Lungs: Diminished breath sounds with mild crackles in bilateral bases Heart: Irregularly irregular pulse, systolic murmur audible. Abdomen: Soft nontender, positive bowel sounds. Extremities: 2+ edema bilateral lower extremity. Neuro: Confused, drowsy, but arousable. Detailed neuro exam was not performed. ASSESSMENT A-fib with RVR Mild to moderate HFpEF exacerbation Altered mental status, metabolic encephalopathy Possible CVA Debility and frailty Multiple falls Generalized weakness Other multiple comorbidities Cardiac testing Echo shows EF of 50 to 55%, severe biatrial dilatation, mild RV dilatation, mild aortic stenosis PLAN Continue Eliquis for now. Will evaluate further in safety of systemic ant icoagulation after discussing with family and after assessing him for stability on his foot PT OT evaluation Lipitor 40. Discontinue Farxiga because of concerns of UTI. On digoxin 125 mcg daily, will continue Cardizem 120 mg daily Lisinopril 10 mg twice daily, metoprolol 50 mg twice daily Objective - Vital Signs Vital signs: Vital Signs Temp 98.3 F 03/28/24 08:00 Pulse 89 03/28/24 16:00 Resp 16 03/28/24 14:00 BP 126/69 03/28/24 16:00 Pulse Ox 94 L 03/28/24 16:00 FiO2 Intake & Output 03/27/24 03/28/24 03/28/24 18:59 06:59 18:59 Intake Total 1014 500 Output Total 1718 750 800 Balance -704 -750 -300 Weight 89.5 kg Intake: Oral 1014 500 Output: Urine 1200 750 800 Post Void Residual 518 Other: Voiding Method Indwelling Catheter Indwelling Catheter Indwelling Catheter # Bowel Movements 1 - Labs CBC & Chem 7: 03/28/24 10:29 03/28/24 10:29 Labs: Abnormal Lab Results - Last 24 Hours (Table) 03/27/24 03/28/24 03/28/24 Range/Units 07:39 10:29 10:29 RBC 4.06 L (4.30-5.90) m/uL Sodium 128 L (137-145) mmol/L Carbon Dioxide 21 L (22-30) mmol/L BUN 21 H (9-20) mg/dL Glucose 103 H (74-99) mg/dL Total Bilirubin 1.7 H (0.2-1.3) mg/dL ALT 59 H (4-49) U/L Total Protein 5.9 L (6.3-8.2) g/dL Albumin 3.3 L (3.5-5.0) g/dL Vitamin B12 973.0 H (200.0-944.0) pg/mL
[2024-03-29] MEDS: HYDROcodone/APAP 10-325MG 1 EACH TAB PO PRN (08:59)
--- NOTE | 2024-03-29 16:33 | P.PN ---
Subjective Progress Note Date: 03/28/24 HISTORY OF PRESENT ILLNESS: 78-year-old with active medical history of A-fib, congestive heart failure, multiple joint replacement, chronic lower back pain, hypertension, hyperlip idemia, chronic edema, BPH, CKD, chronic pain syndrome, and severe debility with severe cervical spine myalgia who was hospitalized last in October 2023 with severe cervical spine radiculopathy and chronic pain syndrome with severe debility not been able to ambulate and walk was in the hospital for over 10 days with multiple complication at the time consistent with acute kidney injury A-fib with RVR recurrent congestive heart failure, anasarca and other. The patient ended up going to [facility] on the hui and was negative for 4 weeks for rehab which has done well the patient continues to have significant decreased mobility and not been able to gain his full independency. He has been back to the office few times for follow-up last has been severely tired fatigued not been able to ambulate and has problem with his balance and gait. Findings are consistent with no major abnormality more than electrolyte imbalance slight decrease in kidney function mild challenging blood pressure and such. He presented to the emergency department with his transported via EMS because of getting very weak not been able to ambulate and walk had multiple fall worsening symptoms of dyspnea with shortness of breath worsening palpitation on and off same time declined any typical chest pain or angina but has been having significant anasarca, edema, worsening dyspnea with minimal exertion and alert. At the time was in A-fib with RVR with pulse rate running over 120 bpm very irregular, he has been on oral Eliquis along with Cardizem and metoprolol, despite medication he continues to be quite tachycardic symptomatic. Again declined any anginal chest pain. His pulse ox was in the mid 90 blood probably value shows leukocytosis with white blood cell 15,400 kidney function was normal with mild hyponatremia sodium at 131, lactic acid at 1.5 with normal troponin and normal kidney function test. UA did not show any abnormality, TSH was borderline overactive. EKG showed A- fib with RVR pulse rate between 35 beats per minutes. Chest x-ray shows no evidence of pleural effusion or any infiltrate. He will be starting back on Cardizem drip consult cardiology and admit to the hospital above problem. Also evaluating patient mental status at the time shows significant worsening confusion with severe debility despite knowing the surrounding he had quite a bit encephalopathy not been explained the exception of probably hypoxia and mild shortness of breath with congestive heart failure from the A-fib with RVR. 03/27/2024: Patient is more stable through the night, his A-fib is down slightly compared to late yesterday but still running around 100 beats per minutes. Patient be seen cardiology today, also review his CT more consistent with possibility of new CVA MRI was ordered the patient be seen neurology today further workup for his stroke including echo and carotid will be done awaiting for neurology recommendation also with the significant change with his weakness and altered mental status patient will have an EEG to exclude any type of atypical seizure. He has reactive leukocytosis not explained there is no sign of infection currently need to be treated so holding off on antibiotics for now. Will start physical therapy and Occupational Therapy and start up with the social and human services assistant patient is not safe ambulating the way he has for the time being he needs further and more help. He is known to have severe radiculopathy and spinal stenosis of the cervical spine also had spinal stenosis of the lumbar spine making his mobility and ability to walk freely with no help is very limited show need to do more physical therapy and strength for the upper and lower part of his body assume the finding of his MRI positive for stroke further management of stroke will be done accordingly. 03/28/2024: He is more awake alert still slight bit confused, the on the bedside has been complaining of slight increased cough productive of dark phlegm with negative chest x-ray recently. The full workup for his stroke including MRI of the brain which shows small vessel disease and mostly brainstem involvement with no acute large massive stroke. There is moderate to severe global atrophy. Carotid ultrasound shows 50-69 percentile of stenosis of the right carotid bifurcation with less than 50% out of the left carotid area. Holter monitor and EKG still showing A-fib with rapid ventricular response with pulse rates under control with cardiology management. Apparently family are coming across with more alcohol consumption than expected sometimes can be heavy. Patient has been on CIWA along with thiamine and folic acid still watching for any withdrawal symptoms. Current treatment management still directed toward CVA, physical therapy and Occupational Therapy in place will advance this as much as possible patient is still not able to ambulate independently he require more help continue phenobarbital may be 25 mg 3 times a day on as-needed basis not required to be on it regularly anymore and treatment management for bronchitis or early pneumonia will be considered as well. REVIEW OF SYSTEMS: CONSTITUTIONAL: Well-developed no acute respiratory distress. EYES: No icterus sclerae, no conjunctivitis. EARS, NOSE, MOUTH, THROAT, and FACE: No sore throat, lymphadenopathy, carotid bruits or deformity. RESPIRATORY: Mild shortness of breath no cough or wheezes. CARDIOVASCULAR: Positive PND orthopnea palpitation no angina. GASTROINTESTINAL: Distended abdomen with slight nausea constipation. GENITOURINARY: Decreased urine output with mild irritation burning and discomfort. INTEGUMENT/BREAST: Negative for any muscular injury with mild osteoarthritis.. HEMATOLOGIC/LYMPHATIC: Negative for bleed or purpura. MUSCULOSKELTAL: Chronic arthralgia and myalgia. NEURLOGICAL: No LOC, Sz or syncope, blurred vision dizziness or abnormality.. BEHAVIORAL/PSYCH: Negative. ENDOCRINE: Negative. PHYSICAL EXAMINATION: General Appearance: Alert, cooperative, no distress, seems slight discomfort laying in bed. Neck HEENT: Supple, no lymphadenopathy, no thyroid enlargement, no carotid bruits. Significant stiffness and discomfort in the cervical spine area. Lungs: Decreased breath sound the bases positive rhonchi slight crackles in the right base. Chest Wall: Decreased expansion with deep inspiration no tenderness and no deformity was found on exam, no costochondral pain or discomfort. Heart: Irregular rate and rhythm, S1, S2 positive S3 positive systolic murmur. Tachycardia pulse rate currently 130 beats per minutes. Back: Symmetric, no curvature, ROM normal, severe scoliosis with slight CVA tenderness with scar tissue from previous surgery. Abdomen: Soft, non-tender, bowel sounds active all four quadrants, no masses, no organomegaly. Slight distended abdomen. Mild discomfort in the right upper quadrant area. Extremities: Extremities normal, atraumatic, no cyanosis positive edema 1-2+ lower extremity worse on the right of the left side. Foot exam shows slight warmness discomfort and swelling with chronic edema. Pulses: 2+ and symmetric. Skin: Skin color, texture, tugor normal, no rashes or lesions. Neurologic: Alert oriented with slight confusion cranial nerves II through XII intact, no motor deficit, no abnormal balance or gait. ASSESSMENT AND PLAN: _A-fib with RVR: His pulse rate slightly bit better at this point we will continue Lanoxin 125 mcg daily, metoprolol titrate 50 mg twice a day and back on Cardizem CD 240 mg a day which seem to respond very well to it. No need for amiodarone at this point and he is off IV Cardizem. _Worsening congestive heart failure: His echocardiogram again was with very preserved ejection fraction of 55-60 percentile with right ventricular enlargement biatrial enlargement with mild aortic stenosis peak gradient of 30 mmHg only. Will continue current management for diastolic congestive heart failure. _ New onset of CVA: Still with finding of the MRI and the carotid show mostly brainstem and significant atrophy will continue to treat patient for stroke at this point for better management of the A-fib with carotid stenosis management as well. _Altered mental status with slight confusion: Combination of A-fib with RVR, stroke, alcoholic encephalopathy and metabolic encephalopathy even neurology did not address the idea of adding may be smaller dose of donepezil or rivastigmine but might be very helpful at this point. _Aortic stenosis: Very mild still on medical management no intervention required. _Heavy alcohol consumption and mild encephalopathy might be alcoholic basis, will continue thiamine and folic acid will add smaller dose of phenobarbital on as-needed basis. _Severe cervical spine radiculopathy with severe cervical spine stenosis and mild bulging disc was seen orthopedic has been on conservative management. _Chronic pain syndrome: Changes hydrocodone up to 10/325 up to 4 times a day as needed continue to be combined with baclofen and Flexeril as needed basis. _Hypertension: With urgent symptoms sometimes remain on Zestril 20 mg daily, amlodipine 10 mg daily, torsemide or furosemide along with diltiazem CD. _Hyperlipidemia: Continue atorvastatin 20 mg a day. _Urinary retention: Love catheter was removed successfully and no retention. _Previous history of GI bleed with no recurrent bleed at this point remain on omeprazole 20 mg daily. _Anticoagulation: Continue patient on Eliquis does not seem there is any sign of bleed. _Debility: Secondary to combination of metabolic encephalopathy, alcoholic encephalopathy, severe bronchitis, congestive heart failure along with A-fib with RVR and new onset of CVA will continue current management with advanced PT OT. _Multiple fall: Most likely secondary to his cervical spine radiculopathy and generalized weakness with spinal stenosis of the lower lumbar area, again back to do physical therapy and occasional therapy and see if patient can receive to ambulate with help. _Leukocytosis: Still try to exclude the possibility of infection this is most likely bronchitis and early pneumonia. Discussion: Continue current management for his new onset of stroke along with A-fib with RVR will continue to treat metabolic and alcoholic encephalopathy. PT OT advanced treatment and management watch for EtOH withdrawal and patient probably benefit from going to SNF. Objective - Vital Signs Vital signs: Vital Signs Temp 98.3 F 03/28/24 08:00 Pulse 113 H 03/28/24 08:00 Resp 16 03/28/24 08:00 BP 128/80 03/28/24 08:00 Pulse Ox 93 L 03/28/24 08:00 FiO2 Intake & Output 03/27/24 03/28/24 03/28/24 18:59 06:59 18:59 Intake Total 1014 Output Total 1718 750 Balance -704 -750 Weight 89.5 kg Intake: Oral 1014 Output: Urine 1200 750 Post Void Residual 518 Other: Voiding Method Indwelling Catheter Indwelling Catheter Indwelling Catheter # Bowel Movements 1 - Labs CBC & Chem 7: 03/28/24 10:29 03/28/24 10:29 Labs: Abnormal Lab Results - Last 24 Hours (Table) 03/27/24 Range/Units 07:39 ESR 24 H (0-20) mm/Hr
[2024-03-29] MEDS ORDERED: PHENobarbitaL 16.2 MG TAB PO PRN (16:37)
--- NOTE | 2024-03-29 16:37 | P.PN ---
Subjective Progress Note Date: 03/29/24 HISTORY OF PRESENT ILLNESS: 78-year-old with active medical history of A-fib, congestive heart failure, multiple joint replacement, chronic lower back pain, hypertension, hyperlip idemia, chronic edema, BPH, CKD, chronic pain syndrome, and severe debility with severe cervical spine myalgia who was hospitalized last in October 2023 with severe cervical spine radiculopathy and chronic pain syndrome with severe debility not been able to ambulate and walk was in the hospital for over 10 days with multiple complication at the time consistent with acute kidney injury A-fib with RVR recurrent congestive heart failure, anasarca and other. The patient ended up going to [facility] on the hui and was negative for 4 weeks for rehab which has done well the patient continues to have significant decreased mobility and not been able to gain his full independency. He has been back to the office few times for follow-up last has been severely tired fatigued not been able to ambulate and has problem with his balance and gait. Findings are consistent with no major abnormality more than electrolyte imbalance slight decrease in kidney function mild challenging blood pressure and such. He presented to the emergency department with his transported via EMS because of getting very weak not been able to ambulate and walk had multiple fall worsening symptoms of dyspnea with shortness of breath worsening palpitation on and off same time declined any typical chest pain or angina but has been having significant anasarca, edema, worsening dyspnea with minimal exertion and alert. At the time was in A-fib with RVR with pulse rate running over 120 bpm very irregular, he has been on oral Eliquis along with Cardizem and metoprolol, despite medication he continues to be quite tachycardic symptomatic. Again declined any anginal chest pain. His pulse ox was in the mid 90 blood probably value shows leukocytosis with white blood cell 15,400 kidney function was normal with mild hyponatremia sodium at 131, lactic acid at 1.5 with normal troponin and normal kidney function test. UA did not show any abnormality, TSH was borderline overactive. EKG showed A- fib with RVR pulse rate between 35 beats per minutes. Chest x-ray shows no evidence of pleural effusion or any infiltrate. He will be starting back on Cardizem drip consult cardiology and admit to the hospital above problem. Also evaluating patient mental status at the time shows significant worsening confusion with severe debility despite knowing the surrounding he had quite a bit encephalopathy not been explained the exception of probably hypoxia and mild shortness of breath with congestive heart failure from the A-fib with RVR. 03/27/2024: Patient is more stable through the night, his A-fib is down slightly compared to late yesterday but still running around 100 beats per minutes. Patient be seen cardiology today, also review his CT more consistent with possibility of new CVA MRI was ordered the patient be seen neurology today further workup for his stroke including echo and carotid will be done awaiting for neurology recommendation also with the significant change with his weakness and altered mental status patient will have an EEG to exclude any type of atypical seizure. He has reactive leukocytosis not explained there is no sign of infection currently need to be treated so holding off on antibiotics for now. Will start physical therapy and Occupational Therapy and start up with the director social patient is not safe ambulating the way he has for the time being he needs further and more help. He is known to have severe radiculopathy and spinal stenosis of the cervical spine also had spinal stenosis of the lumbar spine making his mobility and ability to walk freely with no help is very limited show need to do more physical therapy and strength for the upper and lower part of his body assume the finding of his MRI positive for stroke further management of stroke will be done accordingly. 03/28/2024: He is more awake alert still slight bit confused, the on the bedside has been complaining of slight increased cough productive of dark phlegm with negative chest x-ray recently. The full workup for his stroke including MRI of the brain which shows small vessel disease and mostly brainstem involvement with no acute large massive stroke. There is moderate to severe global atrophy. Carotid ultrasound shows 50-69 percentile of stenosis of the right carotid bifurcation with less than 50% out of the left carotid area. Holter monitor and EKG still showing A-fib with rapid ventricular response with pulse rates under control with cardiology management. Apparently family are coming across with more alcohol consumption than expected sometimes can be heavy. Patient has been on CIWA along with thiamine and folic acid still watching for any withdrawal symptoms. Current treatment management still directed toward CVA, physical therapy and Occupational Therapy in place will advance this as much as possible patient is still not able to ambulate independently he require more help continue phenobarbital may be 25 mg 3 times a day on as-needed basis not required to be on it regularly anymore and treatment management for bronchitis or early pneumonia will be considered as well. 03/29/2024: He is having more cough and congestion, continue to treat his EtOH no withdrawal symptoms at this point his balance and gait still off Patient mostly bed rested with help but he still trying hard to keep up with physical therapy. Worsening cough today with clinical judgment consistent with severe bronchitis and early pneumonia patient was initiated on Rocephin and doxycycline chest x-ray will be repeated again his white blood cell is down but was quite elevated on admission which probably the cause of early pneumonia in the first place. His A-fib is much better controlled with pulse rate running around 100 not higher still on Cardizem orally along with metoprolol and digoxin and remain on anticoagulation. REVIEW OF SYSTEMS: CONSTITUTIONAL: Well-developed no acute respiratory distress. EYES: No icterus sclerae, no conjunctivitis. EARS, NOSE, MOUTH, THROAT, and FACE: No sore throat, lymphadenopathy, carotid bruits or deformity. RESPIRATORY: Mild shortness of breath no cough or wheezes. CARDIOVASCULAR: Positive PND orthopnea palpitation no angina. GASTROINTESTINAL: Distended abdomen with slight nausea constipation. GENITOURINARY: Decreased urine output with mild irritation burning and discomfort. INTEGUMENT/BREAST: Negative for any muscular injury with mild osteoarthritis.. HEMATOLOGIC/LYMPHATIC: Negative for bleed or purpura. MUSCULOSKELTAL: Chronic arthralgia and myalgia. NEURLOGICAL: No LOC, Sz or syncope, blurred vision dizziness or abnormality.. BEHAVIORAL/PSYCH: Negative. ENDOCRINE: Negative. PHYSICAL EXAMINATION: General Appearance: Alert, cooperative, no distress, seems slight discomfort laying in bed. Neck HEENT: Supple, no lymphadenopathy, no thyroid enlargement, no carotid bruits. Significant stiffness and discomfort in the cervical spine area. Lungs: Decreased breath sound the bases positive rhonchi slight crackles in the right base. Chest Wall: Decreased expansion with deep inspiration no tenderness and no deformity was found on exam, no costochondral pain or discomfort. Heart: Irregular rate and rhythm, S1, S2 positive S3 positive systolic murmur. Tachycardia pulse rate currently 130 beats per minutes. Back: Symmetric, no curvature, ROM normal, severe scoliosis with slight CVA tenderness with scar tissue from previous surgery. Abdomen: Soft, non-tender, bowel sounds active all four quadrants, no masses, no organomegaly. Slight distended abdomen. Mild discomfort in the right upper quadrant area. Extremities: Extremities normal, atraumatic, no cyanosis positive edema 1-2+ lower extremity worse on the right of the left side. Foot exam shows slight warmness discomfort and swelling with chronic edema. Pulses: 2+ and symmetric. Skin: Skin color, texture, tugor normal, no rashes or lesions. Neurologic: Alert oriented with slight confusion cranial nerves II through XII intact, no motor deficit, no abnormal balance or gait. ASSESSMENT AND PLAN: _A-fib with RVR: His pulse rate slightly bit better at this point we will continue Lanoxin 125 mcg daily, metoprolol titrate 50 mg twice a day and back on Cardizem CD 240 mg a day which seem to respond very well to it. No need for amiodarone at this point and he is off IV Cardizem. _Worsening congestive heart failure: His echocardiogram again was with very preserved ejection fraction of 55-60 percentile with right ventricular enlargement biatrial enlargement with mild aortic stenosis peak gradient of 30 mmHg only. Will continue current management for diastolic congestive heart failure. _ New onset of CVA: Still with finding of the MRI and the carotid show mostly brainstem and significant atrophy will continue to treat patient for stroke at this point for better management of the A-fib with carotid stenosis management as well. _Early right-sided pneumonia and severe bronchitis: Will start patient on Rocephin 1 g along with doxycycline 100 mg twice a day patient oxygenation still good white blood cell still mild elevated we will continue current management the patient upon discharge will continue on oral doxycycline for 5 more days. Updraft treatment was started but no need for any other management with oxygen since his levels still above 90 percentile. _Altered mental status with slight confusion: Combination of A-fib with RVR, stroke, alcoholic encephalopathy and metabolic encephalopathy even neurology did not address the idea of adding may be smaller dose of donepezil or rivastigmine but might be very helpful at this point. _Aortic stenosis: Very mild still on medical management no intervention required. _Heavy alcohol consumption and mild encephalopathy might be alcoholic basis, will continue thiamine and folic acid will add smaller dose of phenobarbital on as-needed basis. _Severe cervical spine radiculopathy with severe cervical spine stenosis and mild bulging disc was seen orthopedic has been on conservative management. _Chronic pain syndrome: Changes hydrocodone up to 10/325 up to 4 times a day as needed continue to be combined with baclofen and Flexeril as needed basis. _Hypertension: Continue Cardizem CD 240 mg a day along with amlodipine 10 Zestril 20 mg a day. _Hyperlipidemia: Continue atorvastatin 20 mg a day. _Previous history of GI bleed with no recurrent bleed at this point remain on omeprazole 20 mg daily. _Anticoagulation: Continue patient on Eliquis does not seem there is any sign of bleed. _Debility: Secondary to combination of metabolic encephalopathy, alcoholic encephalopathy, severe bronchitis, congestive heart failure along with A-fib with RVR and new onset of CVA will continue current management with advanced PT OT. _Multiple fall: Most likely secondary to his cervical spine radiculopathy and generalized weakness with spinal stenosis of the lower lumbar area, again back to do physical therapy and occasional therapy and see if patient can receive to ambulate with help. _Leukocytosis: Still try to exclude the possibility of infection this is most likely bronchitis and early pneumonia. Discussion: Advance PT OT the plan hopefully to go to rehab as well as tomorrow. Objective - Vital Signs Vital signs: Vital Signs Temp 97.6 F 03/29/24 08:00 Pulse 58 L 03/29/24 14:00 Resp 18 03/29/24 14:00 BP 133/62 03/29/24 12:00 Pulse Ox 94 L 03/29/24 12:00 FiO2 Intake & Output 03/28/24 03/29/24 03/29/24 18:59 06:59 18:59 Intake Total 500 238 Output Total 800 300 300 Balance -300 -300 -62 Weight 83.5 kg Intake: Oral 500 238 Output: Urine 800 300 300 Other: Voiding Method Indwelling Catheter Indwelling Catheter Indwelling Catheter - Labs CBC & Chem 7: 03/28/24 10:29 03/28/24 10:29
--- NOTE | 2024-03-29 17:58 | XR ---
EXAMINATION TYPE: XR chest 1V portable DATE OF EXAM: 03/29/2024 5:47 PM CLINICAL INDICATION:Male, 79 years old with history of Aspirartion; [facility] COMPARISON: Chest radiographs from 03/26/2024. TECHNIQUE: XR chest 1V portable Frontal view of the chest. FINDINGS: Lungs/Pleura: Hazy left lung base airspace opacity near the costophrenic sulcus. No evidence of pneum othorax. Pulmonary vascularity: Unremarkable. Heart/mediastinum: Cardiomediastinal silhouette is unremarkable. Musculoskeletal: No acute osseous pathology. IMPRESSION: Left basilar hazy airspace opacity which may represent developing infectious/inflammatory process.
--- NOTE | 2024-03-29 17:59 | P.PN ---
Subjective Progress Note Date: 03/29/24 HISTORY OF PRESENTING ILLNESS 78-year-old with PMH of A-fib, CHF, chronic A-fib, hypertension dyslipidemia, chronic edema, chronic pain, He presented because of getting weak, difficulty to walk, multiple falls, shortness of breath On exam his ECG showed A-fib with RVR, Chest x-ray did not show significant pulmonary congestion Labs shows WBC 15, hemoglobin 14, sodium 131, BUN 28, creatinine 0.7, tropes x 3 were negative, BNP 1600 Progress note 03/28/2024 Patient is doing well from cardiovascular standpoint. He is still maintaining atrial fibrillation with RVR. He denies any chest pain chest pressure. Still appears confused 03/29/24 Neurology workup showed an evidence of brainstem stroke. Patient currently reports that he was compliant to Eliquis. PHYSICAL EXAMINATION Vital signs reviewed. Head: Normocephalic. Eyes: Sclerae nonicteric. Neck: Brisk carotid upstroke, elevated jugular venous distention. Lungs: Diminished breath sounds with mild crackles in bilateral bases Heart: Irregularly irregular pulse, systolic murmur audible. Abdomen: Soft nontender, positive bowel sounds. Extremities: 2+ edema bilateral lower extremity. Neuro: Confused, drowsy, but arousable. Detailed neuro exam was not performed. ASSESSMENT A-fib with RVR Mild to moderate HFpEF exacerbation Acute CVA Altered mental status due to brainstem stroke Possible CVA Debility and frailty Multiple falls Generalized weakness Other multiple comorbidities Cardiac testing Echo shows EF of 50 to 55%, severe biatrial dilatation, mild RV dilatation, mild aortic stenosis PLAN Continue Eliquis for now. Will evaluate further in safety of systemic anticoagulation after discussing with family and after assessing him for stability on his foot PT OT evaluation Lipitor 40. Discontinue Farxiga because of concerns of UTI. On digoxin 125 mcg daily, will continue Cardizem 120 mg daily Lisinopril 10 mg twice daily, metoprolol 50 mg twice daily Objective - Vital Signs Vital signs: Vital Signs Temp 97.6 F 03/29/24 08:00 Pulse 84 03/29/24 16:00 Resp 18 03/29/24 14:00 BP 129/73 03/29/24 16:00 Pulse Ox 94 L 03/29/24 12:00 FiO2 Intake & Output 03/28/24 03/29/24 03/29/24 18:59 06:59 18:59 Intake Total 500 238 Output Total 800 300 300 Balance -300 -300 -62 Weight 83.5 kg Intake: Oral 500 238 Output: Urine 800 300 300 Other: Voiding Method Indwelling Catheter Indwelling Catheter Indwelling Catheter - Labs CBC & Chem 7: 03/28/24 10:29 03/28/24 10:29
[2024-03-29] MEDS: DOXYCYCLINE 100 MG CAP PO SCH (23:04)
[2024-03-30 00:17] VITALS: RESP 16
[2024-03-30 04:46] VITALS: BP 107/67; PULSE 78; TEMP 98.4
[2024-03-30] MEDS ORDERED: MAGNESIUM OXIDE 400 MG TAB ONE ×2 (08:39→21:08)
[2024-03-30] MEDS ORDERED: lisinopriL 20 MG TAB ONE (08:40)
[2024-03-30] MEDS ORDERED: METOPROLOL TARTRATE 50 MG TAB ONE ×2 (08:40→21:08)
[2024-03-30] MEDS ORDERED: FUROSEMIDE 40 MG TAB ONE (08:40)
[2024-03-30] MEDS ORDERED: MULTIVITAMINS, THERA 1 EACH TAB ONE (08:40)
[2024-03-30] MEDS ORDERED: DIGOXIN 125 MCG TAB ONE (08:40)
[2024-03-30] MEDS ORDERED: THIAMINE 100 MG TAB ONE (08:40)
[2024-03-30] MEDS ORDERED: SODIUM CHLORIDE 0.9% 50 ML ONE ×2 (08:41→21:09)
[2024-03-30] MEDS ORDERED: cefTRIAXone 1 GM VIAL ONE ×2 (08:41→21:09)
[2024-03-30] MEDS ORDERED: APIXABAN 5 MG TAB ONE ×2 (08:41→21:09)
[2024-03-30] MEDS ORDERED: DILTIAZEM CD 240 MG CAP.ER.24H PO ONE (08:41)
[2024-03-30] MEDS ORDERED: PANTOPRAZOLE 40 MG TABLET PO ONE (21:08)
[2024-03-30] MEDS ORDERED: allopurinoL 100 MG TAB ONE (21:09)
[2024-03-30] MEDS ORDERED: LORATADINE 10 MG TAB ONE (21:09)
[2024-03-30] MEDS ORDERED: ATORVASTATIN 40 MG TAB ONE (21:09)
[2024-03-30] MEDS ORDERED: DOXYCYCLINE 100 MG CAP ONE (21:15)
[2024-03-31] MEDS ORDERED: MAGNESIUM OXIDE 400 MG TAB ONE ×2 (09:16→19:49)
[2024-03-31] MEDS ORDERED: MULTIVITAMINS, THERA 1 EACH TAB ONE (09:16)
[2024-03-31] MEDS ORDERED: THIAMINE 100 MG TAB ONE (09:16)
[2024-03-31] MEDS ORDERED: METOPROLOL TARTRATE 50 MG TAB ONE ×3 (09:16→19:52)
[2024-03-31] MEDS ORDERED: lisinopriL 20 MG TAB ONE (09:16)
[2024-03-31] MEDS ORDERED: SODIUM CHLORIDE 0.9% 50 ML ONE ×2 (09:17→19:50)
[2024-03-31] MEDS ORDERED: DIGOXIN 125 MCG TAB ONE (09:17)
[2024-03-31] MEDS ORDERED: APIXABAN 5 MG TAB ONE ×2 (09:17→19:50)
[2024-03-31] MEDS ORDERED: DILTIAZEM CD 240 MG CAP.ER.24H PO ONE (09:17)
[2024-03-31] MEDS ORDERED: FUROSEMIDE 40 MG TAB ONE (09:17)
[2024-03-31] MEDS ORDERED: cefTRIAXone 1 GM VIAL ONE ×2 (09:17→19:50)
[2024-03-31] MEDS ORDERED: ATORVASTATIN 40 MG TAB ONE (19:49)
[2024-03-31] MEDS ORDERED: LORATADINE 10 MG TAB ONE (19:49)
[2024-03-31] MEDS ORDERED: PANTOPRAZOLE 40 MG TABLET PO ONE (19:49)
[2024-03-31] MEDS ORDERED: allopurinoL 100 MG TAB ONE (19:50)
[2024-03-31] MEDS ORDERED: DOXYCYCLINE 100 MG CAP ONE (20:15)
[2024-04-01] MEDS ORDERED: MAGNESIUM OXIDE 400 MG TAB ONE (07:35)
[2024-04-01] MEDS ORDERED: THIAMINE 100 MG TAB ONE (07:36)
[2024-04-01] MEDS ORDERED: METOPROLOL TARTRATE 50 MG TAB ONE (07:36)
[2024-04-01] MEDS ORDERED: MULTIVITAMINS, THERA 1 EACH TAB ONE (07:36)
[2024-04-01] MEDS ORDERED: FUROSEMIDE 40 MG TAB ONE (07:36)
[2024-04-01] MEDS ORDERED: lisinopriL 20 MG TAB ONE (07:36)
[2024-04-01] MEDS ORDERED: cefTRIAXone 1 GM VIAL ONE (07:37)
[2024-04-01] MEDS ORDERED: APIXABAN 5 MG TAB ONE (07:37)
[2024-04-01] MEDS ORDERED: DILTIAZEM CD 240 MG CAP.ER.24H PO ONE (07:37)
[2024-04-01] MEDS ORDERED: SODIUM CHLORIDE 0.9% 50 ML ONE (07:37)
[2024-04-01] MEDS ORDERED: DIGOXIN 125 MCG TAB ONE (07:37)
[2024-04-01] MEDS ORDERED: HYDROcodone/APAP 10-325MG 1 EACH TAB ONE (10:57)
[2024-04-22 12:18] LABS: Anion Gap 11 mmol/L; Blood Urea Nitrogen 22 mg/dL (9-20); Carbon Dioxide 20 mmol/L (22-30); Chloride 95 mmol/L (98-107); Glucose 148 mg/dL (74-99); Potassium 3.8 mmol/L (3.5-5.1); Sodium 126 mmol/L (137-145)
[2024-04-22 12:19] LABS: African American GFR (CKD) >90 (>60 ml/min/1.73 sqM); Calcium 8.9 mg/dL (8.4-10.2); Non-African American GFR(CKD) 90 (>60 ml/min/1.73 sqM)
[2024-04-22 12:20] LABS: ALT 105 U/L (4-49); AST 62 U/L (17-59); Albumin 2.9 g/dL (3.5-5.0); Alkaline Phosphatase 128 U/L (38-126); Total Bilirubin 0.8 mg/dL (0.2-1.3); Total Protein 5.4 g/dL (6.3-8.2)
[2024-04-22 12:21] LABS: HCT 37.7 % (39.0-53.0); HGB 12.9 gm/dL (13.0-17.5); MCH 33.9 pg (25.0-35.0); MCHC 34.1 g/dL (31.0-37.0); MCV 99.4 fL (80.0-100.0); Platelet Count 178 k/uL (150-450); RBC 3.79 m/uL (4.30-5.90); RDW 14.8 % (11.5-15.5); WBC 8.3 k/uL (3.8-10.6)
== END 2024-04-01 17:47 ==
LOC: EC 07:22 → 3SCARD 14:59
PROVIDERS: ADMIT Internal Medicine Geriatric Medicine; ATTEND Internal Medicine Geriatric Medicine
DX: I63.9 Cerebral infarction, unspecified (principal); G93.41 Metabolic encephalopathy; R54 Age-related physical debility; R29.6 Repeated falls; R29.810 Facial weakness; I65.21 Occlusion and stenosis of right carotid artery; E87.1 Hypo-osmolality and hyponatremia; I48.20 Chronic atrial fibrillation, unspecified; K21.9 Gastro-esophageal reflux disease without esophagitis; E78.5 Hyperlipidemia, unspecified; G89.4 Chronic pain syndrome; M54.12 Radiculopathy, cervical region; M48.02 Spinal stenosis, cervical region; N40.1 Benign prostatic hyperplasia with lower urinary tract symptoms; R33.8 Other retention of urine; I35.0 Nonrheumatic aortic (valve) stenosis; D72.829 Elevated white blood cell count, unspecified; I13.0 Hypertensive heart and chronic kidney disease with heart failure and stage 1 through stage 4 chronic kidney disease, or unspecified chronic kidney disease; I50.33 Acute on chronic diastolic (congestive) heart failure; N18.9 Chronic kidney disease, unspecified; Z85.828 Personal history of other malignant neoplasm of skin; Z87.891 Personal history of nicotine dependence; Z79.899 Other long term (current) drug therapy; Z79.01 Long term (current) use of anticoagulants; Z79.84 Long term (current) use of oral hypoglycemic drugs
CPT/HCPCS: 36415; 95819; 93005; 93306; 97162; 97166; 84439; 83880; 80061; 80053 ×2; 85652; 84443; 82607; 82746; 83605; 83735; 84550; 84484; 85025; 85027; 86140; 81003; 84145; 71045; 71046; 93880; 70450; 70553; J0696; J1885; A9585; 80048; 96365; 96366; 96375; 99285

== ENCOUNTER → 2024-04-03 | Outpatient (CLI) | payer MEDICARE | END | disposition home or self-care (01) | LOC: LABPRL 12:34 | PROVIDERS: ATTEND Internal Medicine Geriatric Medicine | DX: R53.1 Weakness (principal) | CPT/HCPCS: 87086 ==

== ENCOUNTER 2024-05-01 16:01 | Emergency (ER) | payer MEDICARE ==
[2024-05-01 16:44] VITALS: RESP 18
--- NOTE | 2024-05-01 17:10 | ED ---
Abdominal Pain HPI - General Source: patient, family Mode of arrival: ambulatory Limitations: no limitations <Jacqui Oliveira - Last Filed: 05/01/24 17:09> - General Source: patient, family, RN notes reviewed Mode of arrival: ambulatory Limitations: no limitations - History of Present Illness MD Complaint: abdominal pain <Berenice Houston - Last Filed: 05/02/24 03:10> - General Chief Complaint: Abdominal Pain Stated Complaint: abd pain Time Seen by Provider: 05/01/24 17:09 - History of Present Illness Initial Comments: 79-year-old male presenting with chief complaint of abdominal pain. Patient started having a sharp pain in his right lower abdomen today. No dysuria or hematuria. History of appendectomy. (Jacqui Oliveira) This is an 79-year-old male who presents to the emergency department for abdominal pain. States that earlier this morning he was having sharp pain in the right lower quadrant. He had some nausea but that has since resolved. Pain was fairly severe this morning but seems to have started to improve. Denies any urinary changes. Also denies any fevers or chills. He has been struggling with constipation to some extent. States that he has been trying to take a lot of laxatives. He is struggling to find a stable stool regimen to follow. Since being in the emergency department, states that his pain has started to subside. (Berenice Houston) - Related Data Home Medications Medication Instructions Recorded Confirmed Omeprazole 20 mg PO HS 01/02/19 03/26/24 Atorvastatin [Lipitor] 20 mg PO HS 09/22/21 03/26/24 lisinopriL [Zestril] 10 mg PO DAILY 10/18/21 03/26/24 Apixaban [Eliquis] 5 mg PO BID 11/19/23 03/26/24 Loratadine [Claritin] 10 mg PO HS 11/19/23 03/26/24 Magnesium Oxide [Magox 400] 400 mg PO BID 11/19/23 03/26/24 Empagliflozin [Jardiance] 10 mg PO DAILY 03/26/24 03/26/24 Furosemide [Lasix] 40 mg PO DAILY 03/26/24 03/26/24 HYDROcodone/APAP 10-325MG [[place] 1 tab PO TID PRN 03/26/24 03/26/24 10-325] Metoprolol Tartrate [Lopressor] 50 mg PO BID 03/26/24 03/26/24 Multivitamins, Thera [Multivitamin 1 tab PO DAILY 03/26/24 03/26/24 (formulary)] allopurinoL [Zyloprim] 200 mg PO HS 03/26/24 03/26/24 Previous Rx's Medication Instructions Recorded Digoxin [Digitek] 125 mcg PO DAILY #30 tab 11/26/23 Diltiazem Cd [Cardizem CD] 240 mg PO DAILY #30 cap 11/26/23 Lactulose 10 - 20 gm PO DAILY PRN #473 ml 05/01/24 Allergies Allergy/AdvReac Type Severity Reaction Status Date / Time No Known Allergies Allergy Verified 05/01/24 16:43 Review of Systems ROS Other: All systems not noted in ROS Statement are negative. <Jacqui Oliveira - Last Filed: 05/01/24 17:09> ROS Other: All systems not noted in ROS Statement are negative. <Berenice Houston - Last Filed: 05/02/24 03:10> ROS Statement: Those systems with pertinent positive or pertinent negative responses have been documented in the HPI. Past Medical History Past Medical History: Atrial Fibrillation, Cancer, Heart Failure, CVA/TIA, GERD/Reflux, Hyperlipidemia, Hypertension, Osteoarthritis (OA) Additional Past Medical History / Comment(s): diverticular disease, bleeding duodenal ulcer, gastritis, hemorrhoids, chronic low back pain, vertigo at times, skin cancer with removal, CHF History of Any Multi-Drug Resistant Organisms: None Reported Past Surgical History: Appendectomy, Joint Replacement, Orthopedic Surgery, Tonsillectomy Additional Past Surgical History / Comment(s): Total L/R knee arthroplasty, bilateral total hip arthroplasties, bilateral carpal tunnel releases, L foot bone removed/hardware since removed and had spacer placed, steroid back injections, colonoscopies, basal cell skin cancer removed. Past Anesthesia/Blood Transfusion Reactions: No Reported Reaction Additional Past Anesthesia/Blood Transfusion Reaction / Comment(s): . Past Psychological History: No Psychological Hx Reported Smoking Status: Former smoker Past Alcohol Use History: Daily Past Drug Use History: None Reported - Past Family History Brother(s) Family Medical History: Cancer Mother Family Medical History: Cancer Additional Family Medical History / Comment(s): Mother lived to be 90yrs old. breast cancer Father Family Medical History: No Reported History Additional Family Medical History / Comment(s): Father lived to be in his early 80's. <Jacqui Oliveira - Last Filed: 05/01/24 17:09> General Exam Limitations: no limitations <Jacqui Oliveira - Last Filed: 05/01/24 17:09> Limitations: no limitations General appearance: alert, in no apparent distress Head exam: Present: atraumatic, normocephalic, normal inspection Respiratory exam: Present: normal lung sounds bilaterally. Absent: respiratory distress, wheezes, rales, rhonchi, stridor Cardiovascular Exam: Present: regular rate, normal rhythm, normal heart sounds. Absent: systolic murmur, diastolic murmur, rubs, gallop, clicks GI/Abdominal exam: Present: soft, tenderness (RLQ), normal bowel sounds. Absent: distended, guarding, rebound, rigid Neurological exam: Present: alert, oriented X3, CN II-XII intact Psychiatric exam: Present: normal affect, normal mood Skin exam: Present: warm, dry, intact, normal color. Absent: rash <Berenice Houston - Last Filed: 05/02/24 03:10> - General Exam Comments Initial Comments: Visual Physical Exam Vital signs reviewed General: Well-appearing, nontoxic, no acute distress. Head: Normocephalic, atraumatic Eyes: PERRLA, EOMI ENT: Airway patent Chest: Nonlabored breathing Skin: No visual rash, normal skin tone Neuro: Alert and oriented 3 Musculoskeletal: No gross abnormalities (Jacqui Oliveira) Course Vital Signs 05/01/24 05/01/24 05/01/24 16:40 21:50 23:58 Temperature 97.8 F 98.0 F 98.0 F Pulse Rate 92 75 78 Respiratory 18 18 18 Rate Blood Pressure 100/67 116/72 103/62 O2 Sat by Pulse 98 98 98 Oximetry Medical Decision Making <Jacqui Oliveira - Last Filed: 05/01/24 17:09> - Lab Data Result diagrams: 05/01/24 17:31 05/01/24 17:31 - Radiology Data Radiology results: report reviewed, image reviewed <Berenice Houston - Last Filed: 05/02/24 03:10> - Medical Decision Making I performed the quick note portion of this visit, electronically signed Jacqui Oliveira PA-C (Jacqui Oliveira) This is an 79-year-old male who presents to the emergency department for abdominal pain. Was pt. sent in by a medical professional or institution? @ -No Did you speak to anyone other than the patient for history? @ -No Did you review nursing and triage notes? @ -Yes, and I agree, it is accurate with regards to the patient's symptoms. Were old charts reviewed? @ -No Differential Diagnosis? @ -Differential Abdominal Pain Men: Appendicitis, cholecystitis, diverticulosis, ischemic bowel, pancreatitis, hepatitis, UTI, gastroenteritis, AAA, incarcerated hernia, bowel obstruction, constipation, inflammatory bowel, hepatitis, peptic ulcer disease, splenic infarction, perforated viscus, testicular torsion, this is not meant to be an all-inclusive list EKG interpreted by me (3pts min.)? @ -Not obtained X-rays interpreted by me (1pt min.)? @ -Not obtained CT interpreted by me (1pt min.)? @ -CT scan of the abdomen and pelvis obtained. My interpretation identifies no evidence of bowel wall thickening or free air. U/S interpreted by me (1pt. min.)? @ -Not obtained What testing was considered but not performed? (CT, X-rays, U/S, labs)? Why? @ -None What meds were considered but not given? Why? @ -None Did you discuss the management of the patient with other professionals? @ -No Did you reconcile home meds? @ -No Was smoking cessation discussed for >3mins.? @ -No Was critical care preformed (if so, how long)? @ -No Were there social determinants of health that impacted care today? How? (Homelessness, low income, unemployed, alcoholism, drug addiction, transportation, low edu. Level, literacy, decrease access to med. care, fpc, rehab)? @ -No Was there de-escalation of care discussed even if they declined? (Discuss DNR or withdrawal of care, Hospice)? @ -No What co-morbidities impacted this encounter? (DM, HTN, Smoking, COPD, CAD, Cancer, CVA, Hep., AIDS, mental health diagnosis, sleep apnea, morbid obesity)? @ -None Was patient admitted / discharged? @ -Discharged. Lab work demonstrates mild hypokalemia and was otherwise unremarkable. Urinalysis ordered, however patient did not provide a urine sample prior to discharge. CT scan of the abdomen and pelvis obtained. No acute abnormality was identified. He was however noted to have mild/moderate stool and gas throughout the colon. 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 Findings reviewed with the patient and his . The AAA will need to be followed up on to evaluate for signs of progression. Milk and molasses enema administered and the patient was able to produce a bowel movement. He continued to feel much better in terms of pain. Prescription for lactulose provided to be taken daily to see if that allows him to have a more stable bowel regimen. Advised avoiding excess use of laxatives. Also advised to remain well-hydrated. Patient discharged home in stable condition and advised to have close follow-up with his primary care provider. Case discussed with ED attending Dr. Echeverria. Return precautions reviewed in depth, the patient is instructed to return to the emergency department with any new, worsening, or concerning symptoms. Patient verbalized understanding. Undiagnosed new problem with uncertain prognosis? @ -None Drug Therapy requiring intensive monitoring for toxicity (Heparin, Nitro, Insulin, Cardizem)? @ -None Were any procedures done? @ -None Diagnosis/symptom? @ -Abdominal pain, constipation Acute, or Chronic, or Acute on Chronic? @ -Acute Uncomplicated (without systemic symptoms) or Complicated (systemic symptoms)? @ -Uncomplicated Side effects of treatment? @ -None Exacerbation, Progression, or Severe Exacerbation] @ -Not applicable Poses a threat to life or bodily function? @ -No (Berenice Houston) - Lab Data Lab Results 05/01/24 05/01/24 Range/Units 17:31 17:31 WBC 9.5 (3.8-10.6) k/uL RBC 3.99 L (4.30-5.90) m/uL Hgb 13.0 (13.0-17.5) gm/dL Hct 38.5 L (39.0-53.0) % MCV 96.5 (80.0-100.0) fL MCH 32.6 (25.0-35.0) pg MCHC 33.7 (31.0-37.0) g/dL RDW 15.7 H (11.5-15.5) % Plt Count 198 (150-450) k/uL MPV 8.8 Neutrophils % 75 % Lymphocytes % 16 % Monocytes % 7 % Eosinophils % 1 % Basophils % 1 % Neutrophils # 7.1 (1.3-7.7) k/uL Lymphocytes # 1.5 (1.0-4.8) k/uL Monocytes # 0.7 (0-1.0) k/uL Eosinophils # 0.1 (0-0.7) k/uL Basophils # 0.0 (0-0.2) k/uL Sodium 138 (137-145) mmol/L Potassium 3.1 L (3.5-5.1) mmol/L Chloride 101 (98-107) mmol/L Carbon Dioxide 24 (22-30) mmol/L Anion Gap 13 mmol/L BUN 9 (9-20) mg/dL Creatinine 0.70 (0.66-1.25) mg/dL Est GFR (CKD-EPI)AfAm >90 (>60 ml/min/1.73 sqM) Est GFR (CKD-EPI)NonAf 89 (>60 ml/min/1.73 sqM) Glucose 93 (74-99) mg/dL Calcium 8.4 (8.4-10.2) mg/dL Total Bilirubin 1.4 H (0.2-1.3) mg/dL AST 22 (17-59) U/L ALT 18 (4-49) U/L Alkaline Phosphatase 124 (38-126) U/L Total Protein 6.2 L (6.3-8.2) g/dL Albumin 3.7 (3.5-5.0) g/dL Amylase 40 (30-110) U/L Lipase 149 (23-300) U/L Disposition <Jacqui Oliveira - Last Filed: 05/01/24 17:09> Is patient prescribed a controlled substance at d/c from ED?: No Time of Disposition: 23:47 <Berenice Houston - Last Filed: 05/02/24 03:10> Clinical Impression: Abdominal pain, Constipation Disposition: HOME SELF-CARE Instructions (If sedation given, give patient instructions): Constipation (ED), Abdominal Pain (ED) Additional Instructions: Return to the emergency department with any new, worsening, or concerning symptoms. Try taking the lactulose daily to see if that helps with your constipation. It may take a couple of days before you notice much of a difference. Make sure you are remaining well-hydrated. Follow-up with your primary care provider in the next couple of days and you will need to have the aneurysm that was noted on the imaging monitored. Prescriptions: Lactulose 10 - 20 gm PO DAILY PRN #473 ml PRN Reason: Constipation Referrals: Chris Rice MD [Primary Care Provider] - 1-2 days
[2024-05-01 17:38] LABS: Basophils % (A) 1 %; Eosinophils # (A) 0.1 k/uL (0-0.7); Eosinophils % (A) 1 %; HCT 38.5 % (39.0-53.0); Lymphocytes # (A) 1.5 k/uL (1.0-4.8); Lymphocytes % (A) 16 %; MCH 32.6 pg (25.0-35.0); MCHC 33.7 g/dL (31.0-37.0); MCV 96.5 fL (80.0-100.0); Mean Platelet Volume 8.8; Monocytes # (A) 0.7 k/uL (0-1.0); Monocytes % (A) 7 %; Neutrophils # (A) 7.1 k/uL (1.3-7.7); Neutrophils % (A) 75 %; Platelet Count 198 k/uL (150-450); RBC 3.99 m/uL (4.30-5.90); RDW 15.7 % (11.5-15.5); WBC 9.5 k/uL (3.8-10.6)
[2024-05-01 18:01] LABS: ALT 18 U/L (4-49); AST 22 U/L (17-59); African American GFR (CKD) >90 (>60 ml/min/1.73 sqM); Albumin 3.7 g/dL (3.5-5.0); Alkaline Phosphatase 124 U/L (38-126); Amylase 40 U/L (30-110); Anion Gap 13 mmol/L; Blood Urea Nitrogen 9 mg/dL (9-20); Calcium 8.4 mg/dL (8.4-10.2); Carbon Dioxide 24 mmol/L (22-30); Chloride 101 mmol/L (98-107); Glucose 93 mg/dL (74-99); Lipase 149 U/L (23-300); Non-African American GFR(CKD) 89 (>60 ml/min/1.73 sqM); Potassium 3.1 mmol/L (3.5-5.1); Sodium 138 mmol/L (137-145); Total Bilirubin 1.4 mg/dL (0.2-1.3); Total Protein 6.2 g/dL (6.3-8.2)
[2024-05-01 21:52] VITALS: TEMP 98
--- NOTE | 2024-05-01 22:14 | CT ---
EXAMINATION TYPE: CT abdomen pelvis w con CT DLP: 86252.4 mGycm, Automated exposure control for dose reduction was used. DATE OF EXAM: 05/01/2024 8:10 PM COMPARISON: None. CLINICAL INDICATION:Male, 79 years old with history of Right lower quadrant pain; RLQ pain TECHNIQUE: Axial CT of the abdomen and pelvis. Sagittal and coronal reformats were created on a [employer] workstation. Contrast used:100 ml mL of Isovue 300 with IV Contrast, (none if empty) Oral contrast used: without Oral Contrast (none if empty) FINDINGS: LOWER CHEST: Mild to moderate scarring in the lung bases with borderline mild bronchiectasis. Subpleu ral 5 mm nodule in the left lower lobe. Tiny possibly calcified subpleural nodule laterally at the sa me level. No acute infiltrate or pneumothorax is seen. Mildly prominent pleural fat without pleural e ffusion. Heart appears mildly enlarged with heavy calcification of the coronary arteries noted and mo derate aortic valve calcifications. ABDOMEN LIVER: Unremarkable GALLBLADDER AND BILE DUCTS: Unremarkable gallbladder. No biliary ductal dilatation. PANCREAS: Mild fatty atrophy without acute finding. SPLEEN: Unremarkable. ADRENAL GLANDS: Mildly thickened, may be seen with hyperplasia.. KIDNEYS AND URETERS: Kidneys enhance symmetrically. No evidence of hydronephrosis or visible renal ca lculus. The ureters are unremarkable. A 3.5 cm cyst of the posterior right kidney. A 1.8 cm left rosa l cyst. Tinier cysts may exist. PELVIS Limited evaluation due to beam hardening artifact from bilateral hip arthroplasties. BLADDER: Unremarkable as seen REPRODUCTIVE: Not well-visualized ABDOMEN & PELVIS STOMACH AND BOWEL: Stomach and small bowel are nondistended, no evidence of obstruction. Presumed a ppendix appears within normal limits and there are otherwise no signs of appendicitis. Mild/moderate stool and gas throughout the colon. Scattered diverticula without clear evidence of acute diverticul itis. PERITONEUM/RETROPERITONEUM: No evidence of pneumoperitoneum or free fluid. VASCULATURE: Moderate to severe atherosclerotic calcifications are present throughout the abdominal a janet and its branches.. There is bilobed aneurysmal dilatation of the infrarenal aorta, superior comp onent is up to 3.7 x 3.6 cm, inferior component is up to 4.2 x 3.3 cm. Bifurcation is patent. Diffuse calcific plaque throughout the bilateral iliofemoral arteries. Mild calcification of the proximal ce liac artery, moderate calcification of the proximal SMA. Moderate calcification of the proximal renal arteries. LYMPH NODES: No enlarged nodes by CT size criteria. SOFT TISSUE/ABDOMINAL WALL: Bilobed mitten-shaped umbilical region hernia measuring up to 5.3 x 3.7 c m with a neck 1.7 cm wide. There is mild stranding of the fat within the hernia in the region of the neck, correlate clinically to exclude acute inflammation. MUSCULOSKELETAL: Bilateral total hip arthroplasties in place. No acute bony abnormality. Generally di minished osseous mineralization without evidence of lytic/blastic lesion. Moderate multilevel spondyl osis. No clearly acute bony abnormalities. Suggestion of mild chronic-appearing sacral deformities wh ich may reflect remote injury. IMPRESSION: 1. No clearly acute abnormality in the abdomen or pelvis. 2. 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 3. Fat containing umbilical region hernia with possible mild inflammatory change of the fat. Correla te clinically. 4. Other chronic and likely incidental findings, as described above.
[2024-05-01] MEDS: NA PHOS,M-B/NA PHOS,DI-BA 133 ML ENEMA RECTAL STA (23:30)
[2024-05-02 00:02] VITALS: BP 103/62; PULSE 78
== END 2024-05-01 23:58 | disposition home or self-care (01) ==
LOC: EC 16:01
CPT/HCPCS: 36415; 74177; 80053; 82150; 83690; 85025; 99284

== ENCOUNTER 2024-05-07 15:34 | Inpatient (IN) | payer MEDICARE ==
--- NOTE | 2024-05-07 16:34 | ED ---
Skin/Abscess/FB HPI - General Chief complaint: Skin/Abscess/Foreign Body Stated complaint: abbcess Time Seen by Provider: 05/07/24 15:59 Source: patient, family, RN notes reviewed Mode of arrival: wheelchair Limitations: no limitations - History of Present Illness Initial comments: This is an 79-year-old male who presents to the emergency department for an abscess to his buttocks. States that he has been dealing with 2 abscesses on his buttocks for the last couple of weeks. He had been on antibiotics such as doxycycline and silver sulfadiazine cream, but states that they have not gotten any better. Reports some generalized discomfort with this. Denies any fevers or chills. His PCP advised he come to the emergency department for further evaluation and likely drainage. MD complaint: abscess/boil - Related Data Home Medications Medication Instructions Recorded Confirmed Apixaban [Eliquis] 5 mg PO BID 11/19/23 05/07/24 Loratadine [Claritin] 10 mg PO HS 11/19/23 05/07/24 Magnesium Oxide [Magox 400] 400 mg PO BID 11/19/23 05/07/24 Empagliflozin [Jardiance] 10 mg PO DAILY 03/26/24 05/07/24 Furosemide [Lasix] 40 mg PO DAILY 03/26/24 05/07/24 Metoprolol Tartrate [Lopressor] 50 mg PO BID 03/26/24 05/07/24 Multivitamins, Thera [Multivitamin 1 tab PO HS 03/26/24 05/07/24 (formulary)] allopurinoL [Zyloprim] 200 mg PO HS 03/26/24 05/07/24 Atorvastatin [Lipitor] 40 mg PO HS 05/07/24 05/07/24 Doxycycline Hyclate 100 mg PO BID 05/07/24 05/07/24 Pantoprazole [Protonix] 40 mg PO DAILY 05/07/24 05/07/24 Silver Sulfadiazine [Silver 1 applic TOPICAL BID 05/07/24 05/07/24 Sulfadiazine 1%] Tamsulosin [Flomax] 0.4 mg PO DAILY 05/07/24 05/07/24 Thiamine [Vitamin B-1] 100 mg PO HS 05/07/24 05/07/24 lisinopriL [Zestril] 10 mg PO DAILY 05/07/24 05/07/24 Previous Rx's Medication Instructions Recorded Digoxin [Digitek] 125 mcg PO DAILY #30 tab 11/26/23 Diltiazem Cd [Cardizem CD] 240 mg PO DAILY #30 cap 11/26/23 Lactulose 10 - 20 gm PO DAILY PRN #473 ml 05/01/24 Allergies Allergy/AdvReac Type Severity Reaction Status Date / Time No Known Allergies Allergy Verified 05/07/24 19:04 Review of Systems ROS Statement: Those systems with pertinent positive or pertinent negative responses have been documented in the HPI. ROS Other: All systems not noted in ROS Statement are negative. Past Medical History Past Medical History: Atrial Fibrillation, Cancer, Heart Failure, CVA/TIA, GERD/Reflux, Hyperlipidemia, Hypertension, Osteoarthritis (OA) Additional Past Medical History / Comment(s): diverticular disease, bleeding duodenal ulcer, gastritis, hemorrhoids, chronic low back pain, vertigo at times, skin cancer with removal, CHF History of Any Multi-Drug Resistant Organisms: None Reported Past Surgical History: Appendectomy, Joint Replacement, Orthopedic Surgery, Tonsillectomy Additional Past Surgical History / Comment(s): Total L/R knee arthroplasty, bilateral total hip arthroplasties, bilateral carpal tunnel releases, L foot bone removed/hardware since removed and had spacer placed, steroid back injections, colonoscopies, basal cell skin cancer removed. Past Anesthesia/Blood Transfusion Reactions: No Reported Reaction Additional Past Anesthesia/Blood Transfusion Reaction / Comment(s): . Past Psychological History: No Psychological Hx Reported Smoking Status: Former smoker Past Alcohol Use History: Daily Past Drug Use History: None Reported - Past Family History Brother(s) Family Medical History: Cancer Mother Family Medical History: Cancer Additional Family Medical History / Comment(s): Mother lived to be 90yrs old. breast cancer Father Family Medical History: No Reported History Additional Family Medical History / Comment(s): Father lived to be in his early 80's. General Exam Limitations: no limitations General appearance: alert, in no apparent distress Head exam: Present: atraumatic, normocephalic, normal inspection Respiratory exam: Present: normal lung sounds bilaterally. Absent: respiratory distress, wheezes, rales, rhonchi, stridor Cardiovascular Exam: Present: regular rate, normal rhythm, normal heart sounds. Absent: systolic murmur, diastolic murmur, rubs, gallop, clicks Neurological exam: Present: alert, oriented X3, CN II-XII intact Psychiatric exam: Present: normal affect, normal mood Skin exam: Present: warm, dry, intact, normal color. Absent: rash Course Vital Signs 05/07/24 05/07/24 15:46 23:42 Temperature 97.3 F L Pulse Rate 89 78 Respiratory 20 Rate Blood Pressure 100/64 108/68 O2 Sat by Pulse 98 Oximetry Medical Decision Making - Medical Decision Making This is an 79 year old male who presents to the emergency department for abscesses to his buttocks. Was pt. sent in by a medical professional or institution? @ -His PCP Did you speak to anyone other than the patient for history? @ -No Did you review nursing and triage notes? @ -Yes, and I agree, it is accurate with regards to the patient's symptoms. Were old charts reviewed? @ -No Differential Diagnosis? @ -Differential Abscess: Abscess, phlegmon, pilonidal cyst, hemorrhoid, this is not meant to be an all- inclusive list. EKG interpreted by me (3pts min.)? @ -Not obtained X-rays interpreted by me (1pt min.)? @ -None CT interpreted by me (1pt min.)? @ -CT scan of the abdomen and pelvis obtained. My interpretation identifies left perirectal inflammation. U/S interpreted by me (1pt. min.)? @ -None What testing was considered but not performed? (CT, X-rays, U/S, labs)? Why? @ -None What meds were considered but not given? Why? @ -None Did you discuss the management of the patient with other professionals? @ -Yes, Dr. Rice, who accepts the patient for admission Did you reconcile home meds? @ -Yes Was smoking cessation discussed for >3mins.? @ -No Was critical care preformed (if so, how long)? @ -No Were there social determinants of health that impacted care today? How? (Homelessness, low income, unemployed, alcoholism, drug addiction, transportation, low edu. Level, literacy, decrease access to med. care, assisted, rehab)? @ -No Was there de-escalation of care discussed even if they declined? (Discuss DNR or withdrawal of care, Hospice)? @ -No What co-morbidities impacted this encounter? (DM, HTN, Smoking, COPD, CAD, Cancer, CVA, Hep., AIDS, mental health diagnosis, sleep apnea, morbid obesity)? @ -None Was patient admitted / discharged? @ -Admitted. Lab work demonstrates hyponatremia with a sodium of 129. He is also hypokalemic with potassium of 3.0. CRP elevated at 4.9. 1L bolus of IV fluids and 40 mEq of K-Dur administered. CT scan of the abdomen and pelvis ob tained demonstrating an inflammatory phlegmon to the left perirectal region measuring 6.3 x 3.6 cm. No drainable abscess is identified at this time. Blood cultures obtained. Patient was started on vancomycin and Unasyn and admitted to medicine for perirectal phlegmon. Consult placed for general surgery. Case discussed with ED attending, Dr. Echeverria. Undiagnosed new problem with uncertain prognosis? @ -None Drug Therapy requiring intensive monitoring for toxicity (Heparin, Nitro, Insulin, Cardizem)? @ -None Were any procedures done? @ -None Diagnosis/symptom? @ -Perirectal phlegmon Acute, or Chronic, or Acute on Chronic? @ -Acute Uncomplicated (without systemic symptoms) or Complicated (systemic symptoms)? @ -Uncomplicated Side effects of treatment? @ -None Exacerbation, Progression, or Severe Exacerbation] @ -Not applicable Poses a threat to life or bodily function? @ -Yes, can lead to worsening infection - Lab Data Result diagrams: 05/07/24 17:07 05/07/24 17:07 Lab Results 05/07/24 05/07/24 05/07/24 Range/Units 17:07 17:07 17:07 WBC 8.5 (3.8-10.6) k/uL RBC 3.63 L (4.30-5.90) m/uL Hgb 11.7 L (13.0-17.5) gm/dL Hct 35.0 L (39.0-53.0) % MCV 96.5 (80.0-100.0) fL MCH 32.3 (25.0-35.0) pg MCHC 33.4 (31.0-37.0) g/dL RDW 15.3 (11.5-15.5) % Plt Count 207 (150-450) k/uL MPV 8.5 Neutrophils % 75 % Lymphocytes % 15 % Monocytes % 6 % Eosinophils % 1 % Basophils % 0 % Neutrophils # 6.4 (1.3-7.7) k/uL Lymphocytes # 1.3 (1.0-4.8) k/uL Monocytes # 0.5 (0-1.0) k/uL Eosinophils # 0.1 (0-0.7) k/uL Basophils # 0.0 (0-0.2) k/uL Sodium 129 L (137-145) mmol/L Potassium 3.0 L (3.5-5.1) mmol/L Chloride 97 L (98-107) mmol/L Carbon Dioxide 24 (22-30) mmol/L Anion Gap 8 mmol/L BUN 9 (9-20) mg/dL Creatinine 0.59 L (0.66-1.25) mg/dL Est GFR (CKD-EPI)AfAm >90 (>60 ml/min/1.73 sqM) Est GFR (CKD-EPI)NonAf >90 (>60 ml/min/1.73 sqM) Glucose 92 (74-99) mg/dL Plasma Lactic Acid Fortino 1.0 (0.7-2.0) mmol/L Calcium 7.9 L (8.4-10.2) mg/dL Total Bilirubin 1.0 (0.2-1.3) mg/dL AST 31 (17-59) U/L ALT 26 (4-49) U/L Alkaline Phosphatase 103 (38-126) U/L C-Reactive Protein 4.9 H (<1.0) mg/dL Total Protein 5.4 L (6.3-8.2) g/dL Albumin 3.0 L (3.5-5.0) g/dL - Radiology Data Radiology results: report reviewed, image reviewed Disposition Clinical Impression: Phlegmon, Perirectal inflammation Disposition: ADMITTED IP TO THIS HOSP
[2024-05-07 17:17] LABS: Basophils % (A) 0 %; Eosinophils # (A) 0.1 k/uL (0-0.7); Eosinophils % (A) 1 %; HGB 11.7 gm/dL (13.0-17.5); Lymphocytes # (A) 1.3 k/uL (1.0-4.8); Lymphocytes % (A) 15 %; MCH 32.3 pg (25.0-35.0); MCHC 33.4 g/dL (31.0-37.0); MCV 96.5 fL (80.0-100.0); Mean Platelet Volume 8.5; Monocytes # (A) 0.5 k/uL (0-1.0); Monocytes % (A) 6 %; Neutrophils # (A) 6.4 k/uL (1.3-7.7); Neutrophils % (A) 75 %; Platelet Count 207 k/uL (150-450); RBC 3.63 m/uL (4.30-5.90); RDW 15.3 % (11.5-15.5); WBC 8.5 k/uL (3.8-10.6)
[2024-05-07 17:40] LABS: ALT 26 U/L (4-49); AST 31 U/L (17-59); African American GFR (CKD) >90 (>60 ml/min/1.73 sqM); Alkaline Phosphatase 103 U/L (38-126); Anion Gap 8 mmol/L; Blood Urea Nitrogen 9 mg/dL (9-20); C Reactive Protein 4.9 mg/dL (<1.0); Calcium 7.9 mg/dL (8.4-10.2); Carbon Dioxide 24 mmol/L (22-30); Chloride 97 mmol/L (98-107); Glucose 92 mg/dL (74-99); Non-African American GFR(CKD) >90 (>60 ml/min/1.73 sqM); Sodium 129 mmol/L (137-145); Total Protein 5.4 g/dL (6.3-8.2)
[2024-05-07] MEDS ORDERED: VANCOMYCIN IV PER PHARMACY 1 EACH MISC MISCELLANE PRN (18:03)
[2024-05-07] MEDS: SODIUM CHLORIDE 0.9% 1,000 ML IV STA (18:56)
[2024-05-07] MEDS: CEFEPIME 1 GM in SODIUM CHLORIDE 0.9% 50 ML IVPB ONE (19:00)
[2024-05-07] MEDS: POTASSIUM CHLORIDE ER 20 MEQ TAB.ER PO STA (19:01)
--- NOTE | 2024-05-07 19:06 | CT ---
EXAMINATION TYPE: CT abdomen pelvis w con DATE OF EXAM: 05/07/2024 COMPARISON: 05/01/2024 HISTORY: Rectal pain/abscess CT DLP: 973.4 mGycm CONTRAST: CT scan of the abdomen and pelvis is performed without Oral Contrast and with IV Contrast, patient in jected with 100 mL of Isovue 300. FINDINGS: LUNG BASES-: No visible nodule. No infiltrate. Cardiomegaly. LIVER/GB: No calcified gallstones. No space occupying hepatic lesion. Biliary tree is of normal ca liber. PANCREAS: No inflammation. No distinct mass. SPLEEN: No splenic enlargement. No lesion seen. ADRENALS: No nodule. No thickening. KIDNEYS/BLADDER: No hydronephrosis. No nephrolithiasis. Right renal cyst redemonstrated. No solid r enal masses present. Renal cortical cysts left kidney measuring 1.5 cm. Urinary bladder grossly unrem arkable. BOWEL: Normal appendix. Normal bowel caliber. Inflammatory phlegmon noted left perirectal region braxton suring 6.3 x 3.6 cm. No drainable abscess identified at this time. GENITAL ORGANS: No gross abnormality. LYMPH NODES: No greater than 1cm abdominal or pelvic lymph nodes are appreciated. AORTA: Stable infrarenal abdominal aortic aneurysm measuring up to centimeters. OSSEOUS STRUCTURES: Severe degenerative changes lumbar spine. OTHER: Stable-appearing fat-containing umbilical hernia IMPRESSION: 1. Inflammatory phlegmon noted left perirectal region measuring 6.3 x 3.6 cm. No drainable abscess id entified at this time. 2. Stable-appearing fat-containing hernia. 3. Stable infrarenal abdominal aortic aneurysm.
[2024-05-07] MEDS ORDERED: ONDANSETRON 4 MG/2 ML VIAL IVP PRN (20:02)
[2024-05-07] MEDS ORDERED: ACETAMINOPHEN TAB 325 MG TAB PO PRN (20:02)
[2024-05-07] MEDS ORDERED: MORPHINE SULFATE 4 MG/ML SYRINGE IV PRN (20:02)
[2024-05-07] MEDS ORDERED: NALOXONE 0.4 MG/ML 1 ML VIAL IV PRN (20:02)
[2024-05-07] MEDS ORDERED: LACTULOSE 20 GM/30 ML CUP PO PRN (20:03)
[2024-05-07] MEDS: VANCOMYCIN 1,500 MG in SODIUM CHLORIDE 0.9% 500 ML 500 ML IVPB ONE (21:00)
[2024-05-07] MEDS: APIXABAN 5 MG TAB PO SCH (21:05)
[2024-05-07] MEDS: THIAMINE 100 MG TAB PO SCH (21:06)
[2024-05-07] MEDS: allopurinoL 100 MG TAB PO SCH (21:06)
[2024-05-07] MEDS: METOPROLOL TARTRATE 50 MG TAB PO SCH (21:08)
[2024-05-07] MEDS: MULTIVITAMINS, THERA 1 EACH TAB PO SCH (21:08)
[2024-05-07] MEDS: ATORVASTATIN 40 MG TAB PO SCH (21:08)
[2024-05-07] MEDS: MAGNESIUM OXIDE 400 MG TAB PO SCH (21:09)
[2024-05-07] MEDS: LORATADINE 10 MG TAB PO SCH (21:09)
[2024-05-07] MEDS: AMPICILLIN-SULBACTAM 1.5 GM in SODIUM CHLORIDE 0.9% 50 ML IVPB SCH (22:54)
[2024-05-08] MEDS ORDERED: CEFEPIME 1 GM in SODIUM CHLORIDE 0.9% 50 ML IVPB SCH
[2024-05-08 03:58] LABS: Erythrocyte Sedimentation Rate 18 mm/Hr (0-20)
--- NOTE | 2024-05-08 07:36 | P.HPIM ---
History of Present Illness H&P Date: 05/07/24 HISTORY OF PRESENT ILLNESS: 79-year-old with active medical history of A-fib, mixed systolic and diastolic congestive heart failure, hypertension, hyperlipidemia, chronic kidney disease, chronic pain syndrome, BPH, history of alcoholism, history of multiple joint replacement, history of severe cervical spine myalgia and arthritis, who was hospitalized Over a month ago with worsening congestive heart failure along with altered mental status and A-fib with RVR with new onset of CVA was in the hospital for total of 1 week ended up going to [facility] rehab where patient spent almost 4 weeks has been doing much better at home with his since has been able to manage with some help. He presented to the office on 05/07/2024 with significant pain and discomfort in the buttocks area worsening on the right and the left side with his exam found to have 2 abscess the 1 on the left is little bit larger both are quite inflamed and causing significant amount of discomfort irritation and pain. With low-grade temperature and recurrent symptoms was sent to the emergency department where was seen and evaluated his white blood cell continue to be normal his kidney function improved but potassium and sodium are little bit low patient was initiated Unasyn IV will be admitted to the hospital general surgery was consulted for possible I&D and antibiotic has vancomycin in it and will consult infectious disease waiting for final culture. REVIEW OF SYSTEMS: CONSTITUTIONAL: Well-developed no acute respiratory distress. EYES: No icterus sclerae, no conjunctivitis. EARS, NOSE, MOUTH, THROAT, and FACE: No sore throat, lymphadenopathy, carotid bruits or deformity. RESPIRATORY: No shortness of breath cough or wheezes CARDIOVASCULAR: No chest pain or angina slight PND and orthopnea. GASTROINTESTINAL: Distended abdomen with slight nausea constipation. GENITOURINARY: Decreased urine output with mild irritation burning and discomfort. INTEGUMENT/BREAST: Positive pain and discomfort with what looks like to abscess in the perirectal area. Rectal: There is an inflamed to area worsening on the left with average 4.5 cm below the right side about 2 x 3 cm quite inflamed as well none of them has an o pen head so far. HEMATOLOGIC/LYMPHATIC: Negative for bleed or purpura. MUSCULOSKELTAL: Chronic arthralgia and myalgia. NEURLOGICAL: No LOC, Sz or syncope, blurred vision dizziness or abnormality.. BEHAVIORAL/PSYCH: Negative. ENDOCRINE: Negative. PHYSICAL EXAMINATION: General Appearance: Alert, cooperative, no distress, seems slight discomfort laying in bed. Neck HEENT: Supple, no lymphadenopathy, no thyroid enlargement, no carotid bruits. Significant stiffness and discomfort in the cervical spine area. Lungs: Decreased breath sound the bases positive rhonchi slight crackles in the right base. Chest Wall: Decreased expansion with deep inspiration no tenderness and no deformity was found on exam, no costochondral pain or discomfort. Heart: Irregular rate and rhythm, S1, S2 positive S3 positive systolic murmur. No tachycardia with heart rates under control. Back: Symmetric, no curvature, ROM normal, severe scoliosis with slight CVA tenderness with scar tissue from previous surgery. Abdomen: Soft, non-tender, bowel sounds active all four quadrants, no masses, no organomegaly. Slight distended abdomen. Mild discomfort in the right upper quadrant area. Rectum: Is to abscess quad on the left quite big 1 on the right slightly smaller both of them have quite irritation redness discomfort with no drainage. Extremities: Extremities normal, atraumatic, no cyanosis positive edema 1-2+ lower extremity worse on the right of the left side. Foot exam shows slight warmness discomfort and swelling with chronic edema. Pulses: 2+ and symmetric. Skin: Skin color, texture, tugor normal, no rashes or lesions. Neurologic: Alert oriented with slight confusion cranial nerves II through XII intact, no motor deficit, no abnormal balance or gait. ASSESSMENT AND PLAN: _Rectal abscess: Admit patient to the hospital continue vancomycin and Unasyn, will consult infectious disease and general surgery patient will probably need to go for I&D sometime in the next 24 to 48 hours. _Recent history of stroke: Patient still have minimal residual has been doing much better able to move all his extremities and had full strength mobility with help. _Anasarca and worsening edema: Continue furosemide and spironolactone has done very well specially with his albumin and protein level is good. _A-fib with RVR: Patient is quite bit tachycardic, started on Cardizem drip, continue metoprolol with possible digoxin patient might require to go on amiodarone, electrolyte and thyroid is requested to make sure there is no other abnormality will consult cardiology given to his last echocardiogram continue to watch his A-fib repeat EKG in the morning. _congestive heart failure: No chest pain or angina currently doing much better with medication. _Severe cervical spine radiculopathy with severe cervical spine stenosis and mild bulging disc was seen orthopedic has been on conservative management. _Chronic pain syndrome: Changes hydrocodone up to 10/325 up to 4 times a day as needed continue to be combined with baclofen and Flexeril as needed basis. _Hypertension: remain on Zestril 20 mg daily, amlodipine 10 mg daily, torsemide or furosemide along with diltiazem CD. _Hyperlipidemia: Continue atorvastatin 20 mg a day. _History of alcoholism: Patient has not had any drink in several weeks not hav ing any signs and symptoms of withdrawal or delirium tremor. Continue folic acid and multivitamin along with thiamine. _Previous history of GI bleed with no recurrent bleed at this point remain on omeprazole 20 mg daily. _Anticoagulation: Continue patient on Eliquis does not seem there is any sign of bleed. _Debility: Much better at this time still have slight residual weakness from his stroke and with the severity of the abscess making patient ability to ambulate and walk is not that well yet. _Multiple fall: Most likely secondary to his cervical spine radiculopathy and generalized weakness with spinal stenosis of the lower lumbar area, again back to do physical therapy and occasional therapy and see if patient can receive to ambulate with help. _GI prophylaxis: Patient will be on Pepcid 20 mg daily. _DVT prophylaxis: Continue Eliquis. CODE STATUS: Full code. Admit patient to the inpatient service for more than 2 night stay. Past Medical History Past Medical History: Atrial Fibrillation, Cancer, Heart Failure, CVA/TIA, GE RD/Reflux, Hyperlipidemia, Hypertension, Osteoarthritis (OA) Additional Past Medical History / Comment(s): diverticular disease, bleeding duodenal ulcer, gastritis, hemorrhoids, chronic low back pain, vertigo at times, skin cancer with removal, CHF History of Any Multi-Drug Resistant Organisms: None Reported Past Surgical History: Appendectomy, Joint Replacement, Orthopedic Surgery, Tonsillectomy Additional Past Surgical History / Comment(s): Total L/R knee arthroplasty, bilateral total hip arthroplasties, bilateral carpal tunnel releases, L foot bone removed/hardware since removed and had spacer placed, steroid back injections, colonoscopies, basal cell skin cancer removed. Past Anesthesia/Blood Transfusion Reactions: No Reported Reaction Additional Past Anesthesia/Blood Transfusion Reaction / Comment(s): . Past Psychological History: No Psychological Hx Reported Smoking Status: Former smoker Past Alcohol Use History: Daily Past Drug Use History: None Reported - Past Family History Brother(s) Family Medical History: Cancer Mother Family Medical History: Cancer Additional Family Medical History / Comment(s): Mother lived to be 90yrs old. breast cancer Father Family Medical History: No Reported History Additional Family Medical History / Comment(s): Father lived to be in his early 80's. Medications and Allergies Home Medications Medication Instructions Recorded Confirmed Type Apixaban [Eliquis] 5 mg PO BID 11/19/23 05/07/24 History Loratadine [Claritin] 10 mg PO HS 11/19/23 05/07/24 History Magnesium Oxide [Magox 400] 400 mg PO BID 11/19/23 05/07/24 History Digoxin [Digitek] 125 mcg PO DAILY #30 tab 11/26/23 05/07/24 Rx Diltiazem Cd [Cardizem CD] 240 mg PO DAILY #30 cap 11/26/23 05/07/24 Rx Empagliflozin [Jardiance] 10 mg PO DAILY 03/26/24 05/07/24 History Furosemide [Lasix] 40 mg PO DAILY 03/26/24 05/07/24 History Metoprolol Tartrate [Lopressor] 50 mg PO BID 03/26/24 05/07/24 History Multivitamins, Thera [Multivitamin 1 tab PO HS 03/26/24 05/07/24 History (formulary)] allopurinoL [Zyloprim] 200 mg PO HS 03/26/24 05/07/24 History Lactulose 10 - 20 gm PO DAILY PRN #473 ml 05/01/24 05/07/24 Rx Atorvastatin [Lipitor] 40 mg PO HS 05/07/24 05/07/24 History Doxycycline Hyclate 100 mg PO BID 05/07/24 05/07/24 History Pantoprazole [Protonix] 40 mg PO DAILY 05/07/24 05/07/24 History Silver Sulfadiazine [Silver 1 applic TOPICAL BID 05/07/24 05/07/24 History Sulfadiazine 1%] Tamsulosin [Flomax] 0.4 mg PO DAILY 05/07/24 05/07/24 History Thiamine [Vitamin B-1] 100 mg PO HS 05/07/24 05/07/24 History lisinopriL [Zestril] 10 mg PO DAILY 05/07/24 05/07/24 History Allergies Allergy/AdvReac Type Severity Reaction Status Date / Time No Known Allergies Allergy Verified 05/07/24 19:04 Physical Exam Vitals: Vital Signs Temp Pulse Pulse Resp BP BP Pulse Ox 05/08/24 01:36 97.6 F 81 20 106/66 98 05/07/24 23:42 78 108/68 05/07/24 15:46 97.3 F L 89 20 100/64 98 Intake and Output 05/07/24 05/08/24 05/08/24 22:59 06:59 14:59 Intake Total 220 Output Total 300 Balance -80 Intake: Intake, IV Titration 100 Amount Ampicillin-Sulbactam 1.5 100 gm In Sodium Chloride 0.9 % 50 ml @ 100 mls/hr IVPB Q6H [facility] Rx#:[id number] Oral 120 Output: Urine 300 Other: Weight 85.275 kg 85.275 kg Results CBC & Chem 7: 05/07/24 17:07 05/07/24 17:07 Labs: Abnormal Lab Results - Last 24 Hours (Table) 05/07/24 05/07/24 Range/Units 17:07 17:07 RBC 3.63 L (4.30-5.90) m/uL Hgb 11.7 L (13.0-17.5) gm/dL Hct 35.0 L (39.0-53.0) % Sodium 129 L (137-145) mmol/L Potassium 3.0 L (3.5-5.1) mmol/L Chloride 97 L (98-107) mmol/L Creatinine 0.59 L (0.66-1.25) mg/dL Calcium 7.9 L (8.4-10.2) mg/dL C-Reactive Protein 4.9 H (<1.0) mg/dL Total Protein 5.4 L (6.3-8.2) g/dL Albumin 3.0 L (3.5-5.0) g/dL Thrombosis Risk Factor Assmnt - Choose All That Apply Any of the Below Risk Factors Present?: Yes Each Factor Represents 1 point: Obesity (BMI >25) Other Risk Factors: Yes Each Risk Factor Represents 3 Points: Age 75 years or older Other congenital or acquired thrombophilia - If yes, enter type in comment: No Thrombosis Risk Factor Assessment Total Risk Factor Score: 4 Thrombosis Risk Factor Assessment Level: Moderate Risk
[2024-05-08] MEDS: PANTOPRAZOLE 40 MG TABLET PO SCH (07:48)
[2024-05-08] MEDS: FUROSEMIDE 40 MG TAB PO SCH (09:49)
[2024-05-08] MEDS: TAMSULOSIN 0.4 MG CAP.ER.24H PO SCH (09:49)
[2024-05-08] MEDS: DIGOXIN 125 MCG TAB PO SCH (09:50)
[2024-05-08] MEDS: DILTIAZEM CD 240 MG CAP.ER.24H PO SCH (09:50)
[2024-05-08] MEDS: lisinopriL 10 MG TAB PO SCH (09:50)
[2024-05-08] MEDS: DAPAGLIFLOZIN PROPANEDIOL 5 MG TABLET PO SCH (09:50)
[2024-05-08] MEDS: AMPICILLIN-SULBACTAM 3 GM in SODIUM CHLORIDE 0.9% 100 ML IVPB SCH (12:05)
--- NOTE | 2024-05-08 13:06 | P.GSCN ---
History of Present Illness Consult date: 05/08/24 History of present illness: CHIEF COMPLAINT: Abscesses on the buttocks HISTORY OF PRESENT ILLNESS: This is a 79-year-old male who presented to the hospital with complaints of possible abscesses on his buttocks. Patient has had increased pain and swelling with small amount of drainage from the buttock area. He had been on antibiotics outpatient with no improvement. Patient reports past history of buttock abscess requiring incision and drainage. Patient does report a small amount of drainage. Denies any history of diabetes. He is on Eliquis for A-fib. Last dose this AM. CAT scan had reported inflammatory phlegmon noted in the left perirectal region measuring 6.3 x 3.6 cm. No drainable abscess identified at this time. Surgical service consulted in regar ds to perirectal phlegmon. PAST MEDICAL HISTORY: Atrial Fibrillation, Cancer, Heart Failure, CVA/TIA, GERD/Reflux, Hyperlipidemia, Hypertension, Osteoarthritis (OA), diverticular disease, bleeding duodenal ulcer, gastritis, hemorrhoids, chronic low back pain, vertigo at times, skin cancer with removal, CHF PAST SURGICAL HISTORY: Appendectomy, Joint Replacement, Orthopedic Surgery, Tonsillectomy MEDICATIONS: See below ALLERGIES: See below SOCIAL HISTORY: No illicit drug use. REVIEW OF SYSTEMS: CONSTITUTIONAL: Denies fever or chills. HEENT: Denies blurred vision, vision changes, or eye pain. Denies hemoptysis CARDIOVASCULAR: Denies chest pain or pressure. RESPIRATORY: No shortness of breath. GASTROINTESTINAL: See HPI for pertinent findings HEMATOLOGIC: Denies bleeding disorders. GENITOURINARY: Denies any blood in urine or increased urinary frequency. SKIN: Denies pruitis. Denies rash. PHYSICAL EXAM: VITAL SIGNS: Reviewed GENERAL: Well-developed in no acute distress. HEENT: No sclera icterus. Extraocular movements grossly intact. Moist buccal mucosa. Head is atraumatic, normocephalic. No nasal drainage. ABDOMEN: Soft. Nondistended. NEUROLOGIC: Alert and oriented. Cranial nerves II through XII grossly intact. SKIN: Right buttocks stage II ulcer noted. Left buttocks erythema, area of induration, tender with palpation. No fluctuance. Minimal skin breakdown. Small amount of drainage noted on the brief LABORATORY DATA: WBC 8.5 Hgb 11.7 platelets 207 Sodium 129 potassium 3.0 creatinine 0.59 Lactic acid 1.0 IMAGING: CT scan abdomen pelvis reports inflammatory phlegmon noted left perirectal region measuring 6.3 x 3.6 cm. No drainable abscess identified at this time. Stable appearing fat-containing hernia. Stable infrarenal abdominal aortic ane urysm. ASSESSMENT: 1. Left perirectal phlegmon PLAN: -No surgical intervention planned -Continue antibiotics -Recommend offloading Physician Licensed Midwife note has been reviewed by physician. Signing provider agrees with the documented findings, assessment, and plan of care. Past Medical History Past Medical History: Atrial Fibrillation, Cancer, Heart Failure, CVA/TIA, GERD/Reflux, Hyperlipidemia, Hypertension, Osteoarthritis (OA) Additional Past Medical History / Comment(s): diverticular disease, bleeding duodenal ulcer, gastritis, hemorrhoids, chronic low back pain, vertigo at times, skin cancer with removal, CHF History of Any Multi-Drug Resistant Organisms: None Reported Past Surgical History: Appendectomy, Joint Replacement, Orthopedic Surgery, Tonsillectomy Additional Past Surgical History / Comment(s): Total L/R knee arthroplasty, bilateral total hip arthroplasties, bilateral carpal tunnel releases, L foot bone removed/hardware since removed and had spacer placed, steroid back injections, colonoscopies, basal cell skin cancer removed. Past Anesthesia/Blood Transfusion Reactions: No Reported Reaction Additional Past Anesthesia/Blood Transfusion Reaction / Comm: . Past Psychological History: No Psychological Hx Reported Smoking Status: Former smoker Past Alcohol Use History: Daily Past Drug Use History: None Reported - Past Family History Brother(s) Family Medical History: Cancer Mother Family Medical History: Cancer Additional Family Medical History / Comment(s): Mother lived to be 90yrs old. breast cancer Father Family Medical History: No Reported History Additional Family Medical History / Comment(s): Father lived to be in his early 80's. Medications and Allergies Home Medications Medication Instructions Recorded Confirmed Type Apixaban [Eliquis] 5 mg PO BID 11/19/23 05/07/24 History Loratadine [Claritin] 10 mg PO HS 11/19/23 05/07/24 History Magnesium Oxide [Magox 400] 400 mg PO BID 11/19/23 05/07/24 History Digoxin [Digitek] 125 mcg PO DAILY #30 tab 11/26/23 05/07/24 Rx Diltiazem Cd [Cardizem CD] 240 mg PO DAILY #30 cap 11/26/23 05/07/24 Rx Empagliflozin [Jardiance] 10 mg PO DAILY 03/26/24 05/07/24 History Furosemide [Lasix] 40 mg PO DAILY 03/26/24 05/07/24 History Metoprolol Tartrate [Lopressor] 50 mg PO BID 03/26/24 05/07/24 History Multivitamins, Thera [Multivitamin 1 tab PO HS 03/26/24 05/07/24 History (formulary)] allopurinoL [Zyloprim] 200 mg PO HS 03/26/24 05/07/24 History Lactulose 10 - 20 gm PO DAILY PRN #473 ml 05/01/24 05/07/24 Rx Atorvastatin [Lipitor] 40 mg PO HS 05/07/24 05/07/24 History Doxycycline Hyclate 100 mg PO BID 05/07/24 05/07/24 History Pantoprazole [Protonix] 40 mg PO DAILY 05/07/24 05/07/24 History Silver Sulfadiazine [Silver 1 applic TOPICAL BID 05/07/24 05/07/24 History Sulfadiazine 1%] Tamsulosin [Flomax] 0.4 mg PO DAILY 05/07/24 05/07/24 History Thiamine [Vitamin B-1] 100 mg PO HS 05/07/24 05/07/24 History lisinopriL [Zestril] 10 mg PO DAILY 05/07/24 05/07/24 History Allergies Allergy/AdvReac Type Severity Reaction Status Date / Time No Known Allergies Allergy Verified 05/07/24 19:04 Surgical - Exam Vital Signs Temp Pulse Resp BP Pulse Ox 97.3 F L 89 20 100/64 98 05/07/24 15:46 05/07/24 15:46 05/07/24 15:46 05/07/24 15:46 05/07/24 15:46 Results - Labs 05/07/24 17:07 05/07/24 17:07 Abnormal Lab Results - Last 24 Hours (Table) 05/07/24 05/07/24 Range/Units 17:07 17:07 RBC 3.63 L (4.30-5.90) m/uL Hgb 11.7 L (13.0-17.5) gm/dL Hct 35.0 L (39.0-53.0) % Sodium 129 L (137-145) mmol/L Potassium 3.0 L (3.5-5.1) mmol/L Chloride 97 L (98-107) mmol/L Creatinine 0.59 L (0.66-1.25) mg/dL Calcium 7.9 L (8.4-10.2) mg/dL C-Reactive Protein 4.9 H (<1.0) mg/dL Total Protein 5.4 L (6.3-8.2) g/dL Albumin 3.0 L (3.5-5.0) g/dL Diabetes panel 05/07/24 Range/Units 17:07 Sodium 129 L (137-145) mmol/L Potassium 3.0 L (3.5-5.1) mmol/L Chloride 97 L (98-107) mmol/L Carbon Dioxide 24 (22-30) mmol/L BUN 9 (9-20) mg/dL Creatinine 0.59 L (0.66-1.25) mg/dL Glucose 92 (74-99) mg/dL Calcium 7.9 L (8.4-10.2) mg/dL AST 31 (17-59) U/L ALT 26 (4-49) U/L Alkaline Phosphatase 103 (38-126) U/L Total Protein 5.4 L (6.3-8.2) g/dL Albumin 3.0 L (3.5-5.0) g/dL Calcium panel 05/07/24 Range/Units 17:07 Calcium 7.9 L (8.4-10.2) mg/dL Albumin 3.0 L (3.5-5.0) g/dL Pituitary panel 05/07/24 Range/Units 17:07 Sodium 129 L (137-145) mmol/L Potassium 3.0 L (3.5-5.1) mmol/L Chloride 97 L (98-107) mmol/L Carbon Dioxide 24 (22-30) mmol/L BUN 9 (9-20) mg/dL Creatinine 0.59 L (0.66-1.25) mg/dL Glucose 92 (74-99) mg/dL Calcium 7.9 L (8.4-10.2) mg/dL Adrenal panel 05/07/24 Range/Units 17:07 Sodium 129 L (137-145) mmol/L Potassium 3.0 L (3.5-5.1) mmol/L Chloride 97 L (98-107) mmol/L Carbon Dioxide 24 (22-30) mmol/L BUN 9 (9-20) mg/dL Creatinine 0.59 L (0.66-1.25) mg/dL Glucose 92 (74-99) mg/dL Calcium 7.9 L (8.4-10.2) mg/dL Total Bilirubin 1.0 (0.2-1.3) mg/dL AST 31 (17-59) U/L ALT 26 (4-49) U/L Alkaline Phosphatase 103 (38-126) U/L Total Protein 5.4 L (6.3-8.2) g/dL Albumin 3.0 L (3.5-5.0) g/dL
--- NOTE | 2024-05-08 13:47 | P.PN ---
Subjective Progress Note Date: 05/08/24 HISTORY OF PRESENT ILLNESS: 79-year-old with active medical history of A-fib, mixed systolic and diastolic congestive heart failure, hypertension, hyperlipidemia, chronic kidney disease, chronic pain syndrome, BPH, history of alcoholism, history of multiple joint replacement, history of severe cervical spine myalgia and arthritis, who was hospitalized Over a month ago with worsening congestive heart failure along with altered mental status and A-fib with RVR with new onset of CVA was in the hospital for total of 1 week ended up going to [facility] rehab where patient spent almost 4 weeks has been doing much better at home with his since has been able to manage with some help. He presented to the office on 05/07/2024 with significant pain and discomfort in the buttocks area worsening on the right and the left side with his exam found to have 2 abscess the 1 on the left is little bit larger both are quite inflamed and causing significant amount of discomfort irritation and pain. With low-grade temperature and recurrent symptoms was sent to the emergency department where was seen and evaluated his white blood cell continue to be normal his kidney function improved but potassium and sodium are little bit low patient was initiated Unasyn IV will be admitted to the hospital general surgery was consulted for possible I&D and antibiotic has vancomycin in it and will consult infectious disease waiting for final culture. 05/08/2024:There is admitted from the office yesterday for large abscess in the buttocks area and that doing CAT scan in the emergency room and showed inflammatory phlegmon left perirectal lesion measures 6.3 x 3.6 cm no drainable abscess identified this point surgical consultation is on and will consult in fectious disease as well. Will continue using antibiotic between Unasyn and vancomycin and see if the culture shows anything. With recent history patient had with debility and CVA along with anasarca CHF and A-fib with RVR we have to keep him moving very fast otherwise he become more stiff and will have harder time ambulating patient getting him back home when he is ready. REVIEW OF SYSTEMS: CONSTITUTIONAL: Well-developed no acute respiratory distress. EYES: No icterus sclerae, no conjunctivitis. EARS, NOSE, MOUTH, THROAT, and FACE: No sore throat, lymphadenopathy, carotid bruits or deformity. RESPIRATORY: No shortness of breath cough or wheezes CARDIOVASCULAR: No chest pain or angina slight PND and orthopnea. GASTROINTESTINAL: Distended abdomen with slight nausea constipation. GENITOURINARY: Decreased urine output with mild irritation burning and discomfort. INTEGUMENT/BREAST: Positive pain and discomfort with what looks like to abscess in the perirectal area. Rectal: There is an inflamed to area worsening on the left with average 4.5 cm below the right side about 2 x 3 cm quite inflamed as well none of them has an open head so far. HEMATOLOGIC/LYMPHATIC: Negative for bleed or purpura. MUSCULOSKELTAL: Chronic arthralgia and myalgia. NEURLOGICAL: No LOC, Sz or syncope, blurred vision dizziness or abnormality.. BEHAVIORAL/PSYCH: Negative. ENDOCRINE: Negative. PHYSICAL EXAMINATION: General Appearance: Alert, cooperative, no distress, seems slight discomfort laying in bed. Neck HEENT: Supple, no lymphadenopathy, no thyroid enlargement, no carotid bruits. Significant stiffness and discomfort in the cervical spine area. Lungs: Decreased breath sound the bases positive rhonchi slight crackles in the right base. Chest Wall: Decreased expansion with deep inspiration no tenderness and no deformity was found on exam, no costochondral pain or discomfort. Heart: Irregular rate and rhythm, S1, S2 positive S3 positive systolic murmur. No tachycardia with heart rates under control. Back: Symmetric, no curvature, ROM normal, severe scoliosis with slight CVA tenderness with scar tissue from previous surgery. Abdomen: Soft, non-tender, bowel sounds active all four quadrants, no masses, no organomegaly. Slight distended abdomen. Mild discomfort in the right upper quadrant area. Rectum: Is to abscess quad on the left quite big 1 on the right slightly smaller both of them have quite irritation redness discomfort with no drainage. Extremities: Extremities normal, atraumatic, no cyanosis positive edema 1-2+ lower extremity worse on the right of the left side. Foot exam shows slight warmness discomfort and swelling with chronic edema. Pulses: 2+ and symmetric. Skin: Skin color, texture, tugor normal, no rashes or lesions. Neurologic: Alert oriented with slight confusion cranial nerves II through XII intact, no motor deficit, no abnormal balance or gait. ASSESSMENT AND PLAN: _Rectal abscess: Major at 6.3 time 3.6 cm in the perirectal region as an inflammatory/phlegmon not drainable currently surgical consultation was done did not able to drain it yet will continue IV antibiotic and consult infectious disease see if doing antibiotic through the weekend by Saturday the area become soft enough to drain it. _Recent history of stroke: Patient still have minimal residual has been doing much better able to move all his extremities and had full strength mobility with help. _Anasarca and worsening edema: Continue furosemide and spironolactone has done very well specially with his albumin and protein level is good. _A-fib with RVR: Patient is quite bit tachycardic, started on Cardizem drip, continue metoprolol with possible digoxin patient might require to go on amiodarone, electrolyte and thyroid is requested to make sure there is no other abnormality will consult cardiology given to his last echocardiogram continue to watch his A-fib repeat EKG in the morning. _congestive heart failure: No chest pain or angina currently doing much better with medication. _Severe cervical spine radiculopathy with severe cervical spine stenosis and mild bulging disc was seen orthopedic has been on conservative management. _Chronic pain syndrome: Changes hydrocodone up to 10/325 up to 4 times a day as needed continue to be combined with baclofen and Flexeril as needed basis. _Hypertension: remain on Zestril 20 mg daily, amlodipine 10 mg daily, torsemide or furosemide along with diltiazem CD. _Hyperlipidemia: Continue atorvastatin 20 mg a day. _History of alcoholism: Patient has not had any drink in several weeks not having any signs and symptoms of withdrawal or delirium tremor. Continue folic acid and multivitamin along with thiamine. _Previous history of GI bleed with no recurrent bleed at this point remain on omeprazole 20 mg daily. _Anticoagulation: Continue patient on Eliquis does not seem there is any sign of bleed. _Multiple fall: Most likely secondary to his cervical spine radiculopathy and generalized weakness with spinal stenosis of the lower lumbar area, again back to do physical therapy and occasional therapy and see if patient can receive to ambulate with help. _Debility: With patient current condition and recent admission this year that which is not on the move fast enough he is getting get so stiff will be harder to get him home soon. Objective - Vital Signs Vital signs: Vital Signs Temp 97.9 F 05/08/24 07:57 Pulse 105 H 05/08/24 07:57 Resp 16 05/08/24 07:57 BP 125/86 05/08/24 07:57 Pulse Ox 95 05/08/24 07:57 FiO2 Intake & Output 05/07/24 05/08/24 05/08/24 18:59 06:59 18:59 Intake Total 220 Output Total 300 Balance -80 Weight 85.275 kg 85.275 kg Intake: Intake, IV Titration 100 Amount Ampicillin-Sulbactam 1.5 100 gm In Sodium Chloride 0.9 % 50 ml @ 100 mls/hr IVPB Q6H [facility] Rx#:[id number] Oral 120 Output: Urine 300 - Labs CBC & Chem 7: 05/07/24 17:07 05/07/24 17:07 Labs: Abnormal Lab Results - Last 24 Hours (Table) 05/07/24 05/07/24 Range/Units 17:07 17:07 RBC 3.63 L (4.30-5.90) m/uL Hgb 11.7 L (13.0-17.5) gm/dL Hct 35.0 L (39.0-53.0) % Sodium 129 L (137-145) mmol/L Potassium 3.0 L (3.5-5.1) mmol/L Chloride 97 L (98-107) mmol/L Creatinine 0.59 L (0.66-1.25) mg/dL Calcium 7.9 L (8.4-10.2) mg/dL C-Reactive Protein 4.9 H (<1.0) mg/dL Total Protein 5.4 L (6.3-8.2) g/dL Albumin 3.0 L (3.5-5.0) g/dL
[2024-05-08] MEDS: VANCOMYCIN 1,500 MG in SODIUM CHLORIDE 0.9% 500 ML 500 ML IVPB SCH (15:57)
--- NOTE | 2024-05-08 22:29 | P.CONS ---
History of Present Illness - Reason for Consult Consult date: 05/08/24 Abscess of the buttocks bilaterally Requesting physician: Chris Rice - Chief Complaint Sores of bilateral gluteal area x 2-week - History of Present Illness Patient is a 79-year-old male with a past medical history significant for hypertension hyperlipidemia CVA TIA atrial fibrillation diverticular disease presenting to the hospital for evaluation of sores on his gluteal area apparently the patient has been dealing with 2 sores on his gluteal area over the last few weeks and has been treated with doxycycline and Silvadene cream without any improvement for the patient present to the hospital patient denies high-grade fever or any chills and no fever was recorded on presentation to the hospital has been complaining of pain to bilateral total hip wound area describing it to be sharp. Filled to sit on it moderate intensity without any radiation denies significant drainage on presentation to the hospital the patient was afebrile he did have white count of 8.5 creatinine 0.59 liver isms are normal patient did have a abdominal pelvis CT we did shows phlegmon left perirectal region 6.3X 3.6 cm no drainable abscess patient was started on Unasyn and vancomycin infectious disease was consulted for further management of antibiotic therapy Review of Systems Positive point and negatives has been mentioned in the HPI, complete review of systems was performed and all other systems are negative Past Medical History Past Medical History: Atrial Fibrillation, Cancer, Heart Failure, CVA/TIA, GERD/Reflux, Hyperlipidemia, Hypertension, Osteoarthritis (OA) Additional Past Medical History / Comment(s): diverticular disease, bleeding duodenal ulcer, gastritis, hemorrhoids, chronic low back pain, vertigo at times, skin cancer with removal, CHF History of Any Multi-Drug Resistant Organisms: None Reported Past Surgical History: Appendectomy, Joint Replacement, Orthopedic Surgery, Tonsillectomy Additional Past Surgical History / Comment(s): Total L/R knee arthroplasty, bilateral total hip arthroplasties, bilateral carpal tunnel releases, L foot bone removed/hardware since removed and had spacer placed, steroid back injections, colonoscopies, basal cell skin cancer removed. Past Anesthesia/Blood Transfusion Reactions: No Reported Reaction Additional Past Anesthesia/Blood Transfusion Reaction / Comm: . Past Psychological History: No Psychological Hx Reported Smoking Status: Former smoker Past Alcohol Use History: Daily Past Drug Use History: None Reported - Past Family History Brother(s) Family Medical History: Cancer Mother Family Medical History: Cancer Additional Family Medical History / Comment(s): Mother lived to be 90yrs old. breast cancer Father Family Medical History: No Reported History Additional Family Medical History / Comment(s): Father lived to be in his early 80's. Medications and Allergies Home Medications Medication Instructions Recorded Confirmed Type Apixaban [Eliquis] 5 mg PO BID 11/19/23 05/07/24 History Loratadine [Claritin] 10 mg PO HS 11/19/23 05/07/24 History Magnesium Oxide [Magox 400] 400 mg PO BID 11/19/23 05/07/24 History Digoxin [Digitek] 125 mcg PO DAILY #30 tab 11/26/23 05/07/24 Rx Diltiazem Cd [Cardizem CD] 240 mg PO DAILY #30 cap 11/26/23 05/07/24 Rx Empagliflozin [Jardiance] 10 mg PO DAILY 03/26/24 05/07/24 History Furosemide [Lasix] 40 mg PO DAILY 03/26/24 05/07/24 History Metoprolol Tartrate [Lopressor] 50 mg PO BID 03/26/24 05/07/24 History Multivitamins, Thera [Multivitamin 1 tab PO HS 03/26/24 05/07/24 History (formulary)] allopurinoL [Zyloprim] 200 mg PO HS 03/26/24 05/07/24 History Lactulose 10 - 20 gm PO DAILY PRN #473 ml 05/01/24 05/07/24 Rx Atorvastatin [Lipitor] 40 mg PO HS 05/07/24 05/07/24 History Doxycycline Hyclate 100 mg PO BID 05/07/24 05/07/24 History Pantoprazole [Protonix] 40 mg PO DAILY 05/07/24 05/07/24 History Silver Sulfadiazine [Silver 1 applic TOPICAL BID 05/07/24 05/07/24 History Sulfadiazine 1%] Tamsulosin [Flomax] 0.4 mg PO DAILY 05/07/24 05/07/24 History Thiamine [Vitamin B-1] 100 mg PO HS 05/07/24 05/07/24 History lisinopriL [Zestril] 10 mg PO DAILY 05/07/24 05/07/24 History Allergies Allergy/AdvReac Type Severity Reaction Status Date / Time No Known Allergies Allergy Verified 05/07/24 19:04 Physical Exam Vitals: Vital Signs Temp Pulse Pulse Resp BP BP Pulse Ox 05/08/24 11:45 98.0 F 88 14 123/86 98 05/08/24 07:57 97.9 F 105 H 16 125/86 95 05/08/24 01:36 97.6 F 81 20 106/66 98 05/07/24 23:42 78 108/68 05/07/24 15:46 97.3 F L 89 20 100/64 98 Intake and Output 05/07/24 05/08/24 05/08/24 22:59 06:59 14:59 Intake Total 220 Output Total 300 Balance -80 Intake: Intake, IV Titration 100 Amount Ampicillin-Sulbactam 1.5 100 gm In Sodium Chloride 0.9 % 50 ml @ 100 mls/hr IVPB Q6H [facility] Rx#:[id number] Oral 120 Output: Urine 300 Other: Weight 85.275 kg 85.275 kg GENERAL DESCRIPTION: Elderly male lying in bed, no distress. No tachypnea or accessory muscle of respiration use. HEENT: Shows Pallor , no scleral icterus. Oral mucous membrane is dry. No pharyngeal erythema or thrush NECK: Trachea central, no thyromegaly. LUNGS: Unlabored breathing. Clear to auscultation anteriorly. No wheeze or crackle. HEART: S1, S2, regular rate and rhythm. No loud murmur ABDOMEN: Soft, no tenderness , left gluteal area did have area of induration and a wound which has been cultured EXTREMITIES: No edema of feet. SKIN: No rash, no masses palpable. NEUROLOGICAL: The patient is awake, alert, oriented x3, mood and affect normal. Results CBC & Chem 7: 05/07/24 17:07 05/07/24 17:07 Labs: Abnormal Lab Results - Last 24 Hours (Table) 05/07/24 05/07/24 Range/Units 17:07 17:07 RBC 3.63 L (4.30-5.90) m/uL Hgb 11.7 L (13.0-17.5) gm/dL Hct 35.0 L (39.0-53.0) % Sodium 129 L (137-145) mmol/L Potassium 3.0 L (3.5-5.1) mmol/L Chloride 97 L (98-107) mmol/L Creatinine 0.59 L (0.66-1.25) mg/dL Calcium 7.9 L (8.4-10.2) mg/dL C-Reactive Protein 4.9 H (<1.0) mg/dL Total Protein 5.4 L (6.3-8.2) g/dL Albumin 3.0 L (3.5-5.0) g/dL Assessment and Plan (1) Abscess, gluteal, left Current Visit: Yes Status: Acute Code(s): L02.31 - CUTANEOUS ABSCESS OF BUTTOCK SNOMED Code(s): 78175187 (2) Perirectal abscess Current Visit: Yes Status: Acute Code(s): K61.1 - RECTAL ABSCESS SNOMED Code(s): 01501704 Plan: 1patient presented to hospital with sores to the bilateral gluteal area more marked on the left gluteal area with the area of induration CT did shows perirectal phlegmon but noted to be an abscess we will need to cover for the gram-positive as well as gram-negative pathogen keeping in mind location of this abscess/phlegmon. 2local culture have been obtained and through to guide further antibiotic therapy. 3vancomycin pharmacy to dose target trough of 15 while watching kidney functio n and Vanco trough closely and will increase the dose of Unasyn to 3 g every 6 hours. We will follow on clinical condition and cultures to further adjust medication if needed Thank you for this consultation we will follow the patient along with you Dictation was produced using [place] dictation software. please excuse any grammatical, word or spelling errors. Time with Patient: Greater than 30
[2024-05-09] MEDS: HYDROmorphone 1 MG/ML 1 ML SYRINGE IVP PRN (08:31)
--- NOTE | 2024-05-09 09:10 | P.PN ---
Subjective Progress Note Date: 05/09/24 Patient feels better. He still has some complaints of perirectal pain. On exam vital signs are stable. Abdomen soft. Appears to be decreased inflammatory changes anus. Patient will continue IV antibiotics. No surgery mentions plan at this time. Objective - Vital Signs Vital signs: Vital Signs Temp 98.5 F 05/09/24 07:13 Pulse 84 05/09/24 07:13 Resp 16 05/09/24 07:13 BP 127/86 05/09/24 07:13 Pulse Ox 97 05/09/24 07:13 FiO2 Intake & Output 05/08/24 05/09/24 05/09/24 18:59 06:59 18:59 Other: # Voids 1 - Labs CBC & Chem 7: 05/07/24 17:07 05/07/24 17:07 Labs: Microbiology - Last 24 Hours (Table) 05/08/24 13:21 Gram Stain - Preliminary Buttock 05/07/24 18:30 Blood Culture - Preliminary Blood
[2024-05-09 09:40] LABS: HCT 32.8 % (39.6-50.0); HGB 11.1 g/dL (13.0-17.0); MCH 32.4 pg (27.0-32.0); MCHC 33.8 g/dL (32.0-37.0); MCV 95.6 FL (80.0-97.0); Mean Platelet Volume 11.5 FL (9.5-12.2); NRBC Per 100 WBC 0 X 10*3/uL (0.00-0.01); Platelet Count 188 X 10*3/uL (140-440); RBC 3.43 X 10*6/uL (4.40-5.60); RDW 15.4 % (11.5-14.5); WBC 7.83 X 10*3/uL (4.50-10.00)
[2024-05-09 10:39] LABS: ALT 25 U/L (10-49); AST 23 U/L (14-35); Albumin 3.1 g/dL (3.8-4.9); Albumin/Globulin Ratio 1.63 Ratio (1.60-3.17); Alkaline Phosphatase 125 U/L (41-126); Blood Urea Nitrogen 7.5 mg/dL (9.0-27.0); Calcium 7.3 mg/dL (8.7-10.3); Chloride 107 mmol/L (96-109); Globulin 1.9 g/dL (1.6-3.3); Glucose 84 mg/dL (70-110); Potassium 2.9 mmol/L (3.5-5.5); Sodium 142 mmol/L (135-145); Total Bilirubin 0.6 mg/dL (0.3-1.2)
[2024-05-09] MEDS ORDERED: Potassium Replacement Protocol 1 EACH MISC MISCELLANE PRN (12:01)
[2024-05-09] MEDS: POTASSIUM CHLORIDE ER 20 MEQ TAB.ER PO SCH (12:18)
--- NOTE | 2024-05-09 14:40 | P.PN ---
Subjective Progress Note Date: 05/09/24 Interval History: 79-year-old with active medical history of A-fib, mixed systolic and diastolic congestive heart failure, hypertension, hyperlipidemia, chronic kidney disease, chronic pain syndrome, BPH, history of alcoholism, history of multiple joint replacement, history of severe cervical spine myalgia and arthritis, who was hospitalized Over a month ago with worsening congestive heart failure along with altered mental status and A-fib with RVR with new onset of CVA was in the hospital for total of 1 week ended up going to [facility] rehab where patient spent almost 4 weeks has been doing much better at home with his since has been able to manage with some help. He presented to the office on 05/07/2024 with significant pain and discomfort in the buttocks area worsening on the right and the left side with his exam found to have 2 abscess the 1 on the left is little bit larger both are quite inflamed and causing significant amount of discomfort irritation and pain. With low-grade temperature and recurrent symptoms was sent to the emergency department where was seen and evaluated his white blood cell continue to be normal his kidney function improved but potassium and sodium are little bit low patient was initiated Unasyn IV will be admitted to the hospital general surgery was consulted for possible I&D and antibiotic has vancomycin in it and will consult infectious disease waiting for final culture. 05/08/2024:There is admitted from the office yesterday for large abscess in the buttocks area and that doing CAT scan in the emergency room and showed inflammatory phlegmon left perirectal lesion measures 6.3 x 3.6 cm no drainable abscess identified this point surgical consultation is on and will consult infectious disease as well. Will continue using antibiotic between Unasyn and vancomycin and see if the culture shows anything. With recent history patient had with debility and CVA along with anasarca CHF and A-fib with RVR we have to keep him moving very fast otherwise he become more stiff and will have harder time ambulating patient getting him back home when he is ready. 05/09/2024atient was seen and examined today. No issues overnight. Perirectal pain is improving. Vital stable, afebrile, on room air. WBC is normal, hemoglobin 11.1, platelet 188. Sodium improved to 142, potassium is low at 2.9, will continue on potassium replacement protocol, normal BUN and creatinine. Currently on vancomycin and Unasyn. Infectious disease following. General surgery following, no surgical intervention. Assessment and plan: _Rectal abscess: Measure6.3 time 3.6 cm in the perirectal region as an inflammatory/phlegmon not drainable.. General surgery consultedno surgical intervention, infectious disease consulted, on vancomycin and Unasyn. _Recent history of stroke: Patient still have minimal residual has been doing much better able to move all his extremities and had full strength mobility with help. _Anasarca and worsening edema: Continue furosemide and spironolactone has done very well specially with his albumin and protein level is good. _A-fib with RVR: Patient is quite bit tachycardic--off Cardizem drip. Continue Eliquis. Continue digoxin, Cardizem, metoprolol. Heart rate controlled. _congestive heart failure: No chest pain or angina currently doing much better with medication. _Severe cervical spine radiculopathy with severe cervical spine stenosis and mild bulging disc was seen orthopedic has been on conservative management. _Chronic pain syndrome: Changes hydrocodone up to 10/325 up to 4 times a day as needed continue to be combined with baclofen and Flexeril as needed basis. _Hypertension: remain on Zestril 20 mg daily, amlodipine 10 mg daily, torsemide or furosemide along with diltiazem CD. _Hyperlipidemia: Continue atorvastatin 20 mg a day. _History of alcoholism: Patient has not had any drink in several weeks not having any signs and symptoms of withdrawal or delirium tremor. Continue folic acid and multivitamin along with thiamine. _Previous history of GI bleed with no recurrent bleed at this point remain on omeprazole 20 mg daily. _Anticoagulation: Continue patient on Eliquis does not seem there is any sign of bleed. _Multiple fall: Most likely secondary to his cervical spine radiculopathy and generalized weakness with spinal stenosis of the lower lumbar area, again back to do physical therapy and occasional therapy and see if patient can receive to ambulate with help. _Debility: With patient current condition and recent admission this year that which is not on the move fast enough he is getting get so stiff will be harder to get him home soon. DVT prophylaxis: Anticoagulated with Eliquis. PHYSICAL EXAMINATION: GENERAL: The patient is A&O x3, NAD HEENT: EOMI, Sclerae anicteric, Moist Mucous membranes Neck: Supple, Non tender, No JVD PULMONARY: Equal breath souds B/L, No wheezing, No crackles. CARDIOVASCULAR: S1, S2 present. No murmurs, rubs, or gallops. ABDOMEN: Soft, nontender, nondistended, normoactive bowel sounds. No guarding or rebound tenderness. MUSCULOSKELETAL: No edema, No cyanosis. No clubbing. Normal ROM. Intact peripheral pulses. EXTREMITIES: No cyanosis, clubbing, or pedal edema. NEUROLOGICAL: CN 2-12 grossly intact. No FND Skin: No Rash REVIEW OF SYSTEMS: CONSTITUTIONAL: No fever or chills. CARDIOVASCULAR: No chest pain, palpitations or syncope. PULMONARY: No shortness of breath, no cough, sore throat. GASTROINTESTINAL: No nausea, vomiting, diarrhea, abdominal pain. : No Dysuria, urgency, frequency. Extremities: No edema. NEUROLOGICAL: No headaches, no weakness, or numbness Dictation was produced using [employer] dictation software. please excuse any grammatical, word or spelling errors. Objective - Vital Signs Vital signs: Vital Signs Temp 98.5 F 05/09/24 07:13 Pulse 84 05/09/24 07:13 Resp 16 05/09/24 07:13 BP 127/86 05/09/24 07:13 Pulse Ox 97 05/09/24 07:13 FiO2 Intake & Output 05/08/24 05/09/24 05/09/24 18:59 06:59 18:59 Other: Voiding Method Toilet # Voids 1 - Labs CBC & Chem 7: 05/09/24 06:16 05/09/24 06:16 Labs: Abnormal Lab Results - Last 24 Hours (Table) 05/09/24 05/09/24 Range/Units 06:16 06:16 RBC 3.43 L (4.40-5.60) X 10*6/uL Hgb 11.1 L (13.0-17.0) g/dL Hct 32.8 L (39.6-50.0) % MCH 32.4 H (27.0-32.0) pg RDW 15.4 H (11.5-14.5) % Potassium 2.9 L (3.5-5.5) mmol/L BUN 7.5 L (9.0-27.0) mg/dL Calcium 7.3 L (8.7-10.3) mg/dL Total Protein 5.0 L (6.2-8.2) g/dL Albumin 3.1 L (3.8-4.9) g/dL Microbiology - Last 24 Hours (Table) 05/08/24 13:21 Gram Stain - Preliminary Buttock 05/07/24 18:30 Blood Culture - Preliminary Blood
--- NOTE | 2024-05-09 14:44 | P.PN ---
Subjective Progress Note Date: 05/09/24 Principal diagnosis: Reason for follow-up is bilateral gluteal and perirectal abscess/phlegmon Patient is a 79-year-old male with a past medical history significant for hypertension hyperlipidemia CVA TIA atrial fibrillation diverticular disease presenting to the hospital for evaluation of sores on his gluteal area, CT has been suggestive of perirectal phlegmon. On today's evaluation that is 05/09/2024, the patient continues to be afebrile, the patient is on room air and breathing comfortably, the Pt denies having any chest pain or cough, the patient denies having any abdominal pain no vomiting or any diarrhea, pain to the bilateral gluteal area slightly decreased. Patient white count 7.83, creatinine 0.6 cultures are pending Objective - Vital Signs Vital signs: Vital Signs Temp 98.5 F 05/09/24 07:13 Pulse 84 05/09/24 07:13 Resp 16 05/09/24 07:13 BP 127/86 05/09/24 07:13 Pulse Ox 97 05/09/24 07:13 FiO2 Intake & Output 05/08/24 05/09/24 05/09/24 18:59 06:59 18:59 Other: Voiding Method Toilet # Voids 1 - Exam GENERAL DESCRIPTION: An elderly male lying in bed in no distress RESPIRATORY SYSTEM: Unlabored breathing , decreased breath sounds at bases HEART: S1 S2 regular rate and rhythm , ABDOMEN: Soft , no tenderness EXTREMITIES: No edema feet - Labs CBC & Chem 7: 05/09/24 06:16 05/09/24 06:16 Labs: Abnormal Lab Results - Last 24 Hours (Table) 05/09/24 05/09/24 Range/Units 06:16 06:16 RBC 3.43 L (4.40-5.60) X 10*6/uL Hgb 11.1 L (13.0-17.0) g/dL Hct 32.8 L (39.6-50.0) % MCH 32.4 H (27.0-32.0) pg RDW 15.4 H (11.5-14.5) % Potassium 2.9 L (3.5-5.5) mmol/L BUN 7.5 L (9.0-27.0) mg/dL Calcium 7.3 L (8.7-10.3) mg/dL Total Protein 5.0 L (6.2-8.2) g/dL Albumin 3.1 L (3.8-4.9) g/dL Microbiology - Last 24 Hours (Table) 05/08/24 13:21 Gram Stain - Preliminary Buttock 05/07/24 18:30 Blood Culture - Preliminary Blood Assessment and Plan (1) Abscess, gluteal, left Current Visit: Yes Status: Acute Code(s): L02.31 - CUTANEOUS ABSCESS OF BUTTOCK SNOMED Code(s): 26566285 (2) Perirectal abscess Current Visit: Yes Status: Acute Code(s): K61.1 - RECTAL ABSCESS SNOMED Co de(s): 19139860 Plan: 1patient presented to hospital with sores to the bilateral gluteal area more marked on the left gluteal area with the area of induration CT did shows perirectal phlegmon but noted to be an abscess we will need to cover for the gram-positive as well as gram-negative pathogen keeping in mind location of this abscess/phlegmon. 2local culture have been obtained that will guide antibiotic therapy 3patient to continue with vancomycin pharmacy to dose target trough of 15 while watching kidney function and Vanco trough closely and Unasyn to 3 g every 6 hours while waiting for the culture to finalize. Dictation was produced using [employer] dictation software. please excuse any grammatical, word or spelling errors. Time with Patient: Less than 30
[2024-05-09] MEDS: HYDROcodone/APAP 5-325MG 1 EACH TAB PO PRN (21:08)
[2024-05-10 07:27] LABS: African American GFR (CKD) >90 (>60 ml/min/1.73 sqM); Anion Gap 9 mmol/L; Blood Urea Nitrogen 4 mg/dL (9-20); Calcium 7.2 mg/dL (8.4-10.2); Carbon Dioxide 24 mmol/L (22-30); Chloride 107 mmol/L (98-107); Glucose 79 mg/dL (74-99); Non-African American GFR(CKD) >90 (>60 ml/min/1.73 sqM); Potassium 3.1 mmol/L (3.5-5.1); Sodium 140 mmol/L (137-145)
[2024-05-10] MEDS ORDERED: Potassium Replacement Protocol 1 EACH MISC MISCELLANE PRN (09:18)
--- NOTE | 2024-05-10 09:42 | P.PN ---
Subjective Progress Note Date: 05/10/24 Patient feels better today. He is less perianal pain. On exam vital signs appear stable. Abdomen is soft. Perirectal induration has improved. Resolving rectal phlegmon. Patient can receive IV antibiotics. We dissipate discharge home tomorrow. Objective - Vital Signs Vital signs: Vital Signs Temp 98.4 F 05/10/24 07:04 Pulse 98 05/10/24 07:04 Resp 18 05/10/24 07:04 BP 122/78 05/10/24 07:04 Pulse Ox 95 05/10/24 07:04 FiO2 Intake & Output 05/09/24 05/10/24 05/10/24 18:59 06:59 18:59 Other: Voiding Method Toilet Toilet # Voids 5 - Labs CBC & Chem 7: 05/09/24 06:16 05/10/24 06:56 Labs: Abnormal Lab Results - Last 24 Hours (Table) 05/09/24 05/10/24 Range/Units 06:16 06:56 Potassium 2.9 L 3.1 L (3.5-5.5) mmol/L BUN 7.5 L 4 L (9.0-27.0) mg/dL Creatinine 0.57 L (0.66-1.25) mg/dL Calcium 7.3 L 7.2 L (8.7-10.3) mg/dL Total Protein 5.0 L (6.2-8.2) g/dL Albumin 3.1 L (3.8-4.9) g/dL Microbiology - Last 24 Hours (Table) 05/08/24 13:21 Gram Stain - Final Buttock Wound Culture - Final Methicillin resist S. aureus 05/07/24 18:30 Blood Culture - Preliminary Blood
[2024-05-10] MEDS: POTASSIUM CHLORIDE ER 20 MEQ TAB.ER PO SCH (12:41)
--- NOTE | 2024-05-10 14:00 | P.PN ---
Subjective Progress Note Date: 05/10/24 Interval History: 79-year-old with active medical history of A-fib, mixed systolic and diastolic congestive heart failure, hypertension, hyperlipidemia, chronic kidney disease, chronic pain syndrome, BPH, history of alcoholism, history of multiple joint replacement, history of severe cervical spine myalgia and arthritis, who was hospitalized Over a month ago with worsening congestive heart failure along with altered mental status and A-fib with RVR with new onset of CVA was in the hospital for total of 1 week ended up going to [facility] rehab where patient spent almost 4 weeks has been doing much better at home with his since has been able to manage with some help. He presented to the office on 05/07/2024 with significant pain and discomfort in the buttocks area worsening on the right and the left side with his exam found to have 2 abscess the 1 on the left is little bit larger both are quite inflamed and causing significant amount of discomfort irritation and pain. With low-grade temperature and recurrent symptoms was sent to the emergency department where was seen and evaluated his white blood cell continue to be normal his kidney function improved but potassium and sodium are little bit low patient was initiated Unasyn IV will be admitted to the hospital general surgery was consulted for possible I&D and antibiotic has vancomycin in it and will consult infectious disease waiting for final culture. 05/08/2024:There is admitted from the office yesterday for large abscess in the buttocks area and that doing CAT scan in the emergency room and showed inflammatory phlegmon left perirectal lesion measures 6.3 x 3.6 cm no drainable abscess identified this point surgical consultation is on and will consult infectious disease as well. Will continue using antibiotic between Unasyn and vancomycin and see if the culture shows anything. With recent history patient had with debility and CVA along with anasarca CHF and A-fib with RVR we have to keep him moving very fast otherwise he become more stiff and will have harder time ambulating patient getting him back home when he is ready. 05/09/2024atient was seen and examined today. No issues overnight. Perirectal pain is improving. Vital stable, afebrile, on room air. WBC is normal, hemoglobin 11.1, platelet 188. Sodium improved to 142, potassium is low at 2.9, will continue on potassium replacement protocol, normal BUN and creatinine. Currently on vancomycin and Unasyn. Infectious disease following. General surgery following, no surgical intervention. 05/10/2024--patient was seen and examined today. Patient feeling better today. No issues overnight. Perirectal pain and discharge is improving. Wound culture is growing MRSA, currently on IV vancomycin and Unasyn. General surgery following, anticipate discharge tomorrow. ID following. Afebrile, heart rate 98, respiratory rate 18, blood pressure 122/78, saturating 95% on room air. Sodium 140, potassium 3.1, BUN 4, creatinine 0.57. Assessment and plan: _Rectal abscess: Measure6.3 time 3.6 cm in the perirectal region as an inflammatory/phlegmon not drainable.. General surgery consultedno surgical intervention, infectious disease consulted, on vancomycin and Unasyn. Wound culture growing MRSA _Recent history of stroke: Patient still have minimal residual has been doing much better able to move all his extremities and had full strength mobility with help. _Anasarca and worsening edema: Continue furosemide and spironolactone has done very well specially with his albumin and protein level is good. _A-fib with RVR: Patient is quite bit tachycardic--off Cardizem drip. Continue Eliquis. Continue digoxin, Cardizem, metoprolol. Heart rate controlled. _congestive heart failure: No chest pain or angina currently doing much better with medication. _Severe cervical spine radiculopathy with severe cervical spine stenosis and mild bulging disc was seen orthopedic has been on conservative management. _Chronic pain syndrome: Changes hydrocodone up to 10/325 up to 4 times a day as needed continue to be combined with baclofen and Flexeril as needed basis. _Hypertension: remain on Zestril 20 mg daily, amlodipine 10 mg daily, torsemide or furosemide along with diltiazem CD. _Hyperlipidemia: Continue atorvastatin 20 mg a day. _History of alcoholism: Patient has not had any drink in several weeks not having any signs and symptoms of withdrawal or delirium tremor. Continue folic acid and multivitamin along with thiamine. _Previous history of GI bleed with no recurrent bleed at this point remain on omeprazole 20 mg daily. _Anticoagulation: Continue patient on Eliquis does not seem there is any sign of bleed. _Multiple fall: Most likely secondary to his cervical spine radiculopathy and generalized weakness with spinal stenosis of the lower lumbar area, again back to do physical therapy and occasional therapy and see if patient can receive to ambulate with help. _Debility: With patient current condition and recent admission this year that which is not on the move fast enough he is getting get so stiff will be harder to get him home soon. DVT prophylaxis: Anticoagulated with Eliquis. PHYSICAL EXAMINATION: GENERAL: The patient is A&O x3, NAD HEENT: EOMI, Sclerae anicteric, Moist Mucous membranes Neck: Supple, Non tender, No JVD PULMONARY: Equal breath souds B/L, No wheezing, No crackles. CARDIOVASCULAR: S1, S2 present. No murmurs, rubs, or gallops. ABDOMEN: Soft, nontender, nondistended, normoactive bowel sounds. No guarding or rebound tenderness. MUSCULOSKELETAL: No edema, No cyanosis. No clubbing. Normal ROM. Intact peripheral pulses. EXTREMITIES: No cyanosis, clubbing, or pedal edema. NEUROLOGICAL: CN 2-12 grossly intact. No FND Skin: No Rash REVIEW OF SYSTEMS: CONSTITUTIONAL: No fever or chills. CARDIOVASCULAR: No chest pain, palpitations or syncope. PULMONARY: No shortness of breath, no cough, sore throat. GASTROINTESTINAL: No nausea, vomiting, diarrhea, abdominal pain. : No Dysuria, urgency, frequency. Extremities: No edema. NEUROLOGICAL: No headaches, no weakness, or numbness Dictation was produced using [employer] dictation software. please excuse any grammatical, word or spelling errors. Objective - Vital Signs Vital signs: Vital Signs Temp 98.4 F 05/10/24 07:04 Pulse 98 05/10/24 07:04 Resp 18 05/10/24 07:04 BP 122/78 05/10/24 07:04 Pulse Ox 95 05/10/24 07:04 FiO2 Intake & Output 05/09/24 05/10/24 05/10/24 18:59 06:59 18:59 Other: Voiding Method Toilet Toilet Toilet # Voids 5 - Labs CBC & Chem 7: 05/09/24 06:16 05/10/24 06:56 Labs: Abnormal Lab Results - Last 24 Hours (Table) 05/10/24 Range/Units 06:56 Potassium 3.1 L (3.5-5.1) mmol/L BUN 4 L (9-20) mg/dL Creatinine 0.57 L (0.66-1.25) mg/dL Calcium 7.2 L (8.4-10.2) mg/dL Microbiology - Last 24 Hours (Table) 05/08/24 13:21 Anaerobic Culture - Preliminary Buttock 05/08/24 13:21 Gram Stain - Final Buttock Wound Culture - Final Methicillin resist S. aureus 05/07/24 18:30 Blood Culture - Preliminary Blood
--- NOTE | 2024-05-10 14:52 | P.PN ---
Subjective Progress Note Date: 05/10/24 Principal diagnosis: Reason for follow-up is bilateral gluteal and perirectal abscess/phlegmon Patient is a 79-year-old male with a past medical history significant for hypertension hyperlipidemia CVA TIA atrial fibrillation diverticular disease presenting to the hospital for evaluation of sores on his gluteal area, CT has been suggestive of perirectal phlegmon. On today's evaluation that is 05/10/2024, Patient is afebrile patient is currently on room air and denies having any shortness of breath, the patient denies any chest pain or cough, the patient denies any nausea vomiting did not have any abdominal pain and no diarrhea, overall pain to the bilateral gluteal area has decreased to having significant drainage as reported by the patient. Patient did have a creatinine 0.57 culture with MRSA Objective - Vital Signs Vital signs: Vital Signs Temp 98.4 F 05/10/24 07:04 Pulse 98 05/10/24 07:04 Resp 18 05/10/24 07:04 BP 122/78 05/10/24 07:04 Pulse Ox 95 05/10/24 07:04 FiO2 Intake & Output 05/09/24 05/10/24 05/10/24 18:59 06:59 18:59 Other: Voiding Method Toilet Toilet Toilet # Voids 5 - Exam GENERAL DESCRIPTION: An elderly male lying in bed in no distress RESPIRATORY SYSTEM: Unlabored breathing , decreased breath sounds at bases HEART: S1 S2 regular rate and rhythm , ABDOMEN: Soft , no tenderness EXTREMITIES: No edema feet - Labs CBC & Chem 7: 05/09/24 06:16 05/10/24 06:56 Labs: Abnormal Lab Results - Last 24 Hours (Table) 05/10/24 Range/Units 06:56 Potassium 3.1 L (3.5-5.1) mmol/L BUN 4 L (9-20) mg/dL Creatinine 0.57 L (0.66-1.25) mg/dL Calcium 7.2 L (8.4-10.2) mg/dL Microbiology - Last 24 Hours (Table) 05/08/24 13:21 Anaerobic Culture - Preliminary Buttock 05/08/24 13:21 Gram Stain - Final Buttock Wound Culture - Final Methicillin resist S. aureus 05/07/24 18:30 Blood Culture - Preliminary Blood Assessment and Plan (1) Abscess, gluteal, left Current Visit: Yes Status: Acute Code(s): L02.31 - CUTANEOUS ABSCESS OF BUTTOCK SNOMED Code(s): 99164991 (2) Perirectal abscess Current Visit: Yes Status: Acute Code(s): K61.1 - RECTAL ABSCESS SNOMED Code(s): 25477426 Plan: 1patient presented to hospital with sores to the bilateral gluteal area more marked on the left gluteal area with the area of induration CT did shows perirectal phlegmon but noted to be an abscess we will need to cover for the gram-positive as well as gram-negative pathogen keeping in mind location of this abscess/phlegmon. 2local culture currently growing MRSA" currently pending 3patient to continue with vancomycin pharmacy to dose target trough of 15 and Unasyn to 3 g every 6 hours while waiting for the anaerobe culture to finalize. Dictation was produced using [employer] dictation software. please excuse any grammatical, word or spelling errors. Time with Patient: Less than 30
[2024-05-10] MEDS: VANCOMYCIN TROUGH DUE 1 EACH MISC MISCELLANE ONE (20:47)
[2024-05-11] MEDS: VANCOMYCIN 1,500 MG in SODIUM CHLORIDE 0.9% 500 ML 500 ML IVPB SCH (07:50)
[2024-05-11 08:45] LABS: Basophils # (A) 0.04 X 10*3/uL (0.00-0.10); Basophils % (A) 0.5 %; Eosinophils # (A) 0.14 X 10*3/uL (0.04-0.35); Eosinophils % (A) 1.8 %; HCT 33.9 % (39.6-50.0); HGB 11.4 g/dL (13.0-17.0); Lymphocytes # (A) 1.86 X 10*3/uL (0.90-5.00); Lymphocytes % (A) 23.5 %; MCH 32.4 pg (27.0-32.0); MCHC 33.6 g/dL (32.0-37.0); MCV 96.3 FL (80.0-97.0); Mean Platelet Volume 11.7 FL (9.5-12.2); Monocytes # (A) 0.77 X 10*3/uL (0.20-1.00); Monocytes % (A) 9.7 %; NRBC Per 100 WBC 0 X 10*3/uL (0.00-0.01); Neutrophils # (A) 5.07 X 10*3/uL (1.80-7.70); Neutrophils % (A) 64.1 %; Platelet Count 214 X 10*3/uL (140-440); RBC 3.52 X 10*6/uL (4.40-5.60); RDW 15.6 % (11.5-14.5); WBC 7.91 X 10*3/uL (4.50-10.00)
[2024-05-11 09:32] LABS: BUN/Creat Ratio 8.67 Ratio (12.00-20.00); Blood Urea Nitrogen 5.2 mg/dL (9.0-27.0); Calcium 7.4 mg/dL (8.7-10.3); Carbon Dioxide 22.6 mmol/L (21.6-31.8); Chloride 107 mmol/L (96-109); Glucose 83 mg/dL (70-110); Potassium 3.3 mmol/L (3.5-5.5); Sodium 142 mmol/L (135-145)
[2024-05-11] MEDS: POTASSIUM CHLORIDE ER 20 MEQ TAB.ER PO STA (10:31)
--- NOTE | 2024-05-11 11:33 | P.PN ---
Subjective Progress Note Date: 05/11/24 CHIEF COMPLAINT: Perirectal phlegmon HISTORY OF PRESENT ILLNESS: Patient reports improvement in his pain and swelling in the buttocks area. No significant drainage. He does complain of some discomfort in the left groin. Patient reports he is had this pain intermittently for a while. He reports having bowel movements. Denies any nausea or vomiting. Afebrile. WBC 7.91 Hgb 11.4 potassium 3.3 PHYSICAL EXAM: VITAL SIGNS: Reviewed. GENERAL: Well-developed in no acute distress. ABDOMEN: Soft. Nondistended. Nontender. Bilateral inguinal hernias are palpable. Mild tenderness on the left. Fat-containing umbilical hernia reducible. NEUROLOGIC: Alert and oriented. Cranial nerves II through XII grossly intact. Skin: Perirectal phlegmon improving. Decrease in tenderness. Decrease in induration and erythema ASSESSMENT: 1. Perirectal phlegmon improving 2. Bilateral inguinal hernias 3. 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 Signing provider agrees with the documented findings, assessment, and plan of care. Objective - Vital Signs Vital signs: Vital Signs Temp 97.5 F L 05/11/24 07:23 Pulse 83 05/11/24 07:23 Resp 18 05/11/24 07:23 BP 145/73 05/11/24 07:23 Pulse Ox 93 L 05/11/24 07:23 FiO2 Intake & Output 05/10/24 05/11/24 05/11/24 18:59 06:59 18:59 Other: Voiding Method Toilet Toilet # Voids 3 1 - Labs CBC & Chem 7: 05/11/24 05:15 05/11/24 05:15 Labs: Abnormal Lab Results - Last 24 Hours (Table) 05/11/24 05/11/24 Range/Units 05:15 05:15 RBC 3.52 L (4.40-5.60) X 10*6/uL Hgb 11.4 L (13.0-17.0) g/dL Hct 33.9 L (39.6-50.0) % MCH 32.4 H (27.0-32.0) pg RDW 15.6 H (11.5-14.5) % Potassium 3.3 L (3.5-5.5) mmol/L Anion Gap 12.40 H (4.00-12.00) mmol/L BUN 5.2 L (9.0-27.0) mg/dL BUN/Creatinine Ratio 8.67 L (12.00-20.00) Ratio Calcium 7.4 L (8.7-10.3) mg/dL Microbiology - Last 24 Hours (Table) 05/07/24 18:30 Blood Culture - Preliminary Blood 05/08/24 13:21 Anaerobic Culture - Preliminary Buttock 05/08/24 13:21 Gram Stain - Final Buttock Wound Culture - Final Methicillin resist S. aureus
--- NOTE | 2024-05-11 12:51 | P.PN ---
Subjective Progress Note Date: 05/11/24 Principal diagnosis: Reason for follow-up is bilateral gluteal and perirectal abscess/phlegmon Patient is a 79-year-old male with a past medical history significant for hypertension hyperlipidemia CVA TIA atrial fibrillation diverticular disease presenting to the hospital for evaluation of sores on his gluteal area, CT has been suggestive of perirectal phlegmon. On today's evaluation that is 05/11/2024, patient has been afebrile, patient is breathing comfortably and is currently on room air, patient denies having any significant cough no chest pain shortness of breath, patient denies nausea vomiting or diarrhea and no abdominal pain still complaining of pain to the left gluteal area and having some drainage. Patient white count 7.91, creatinine 0.6 Vanco trough was low Objective - Vital Signs Vital signs: Vital Signs Temp 97.5 F L 05/11/24 07:23 Pulse 83 05/11/24 07:23 Resp 18 05/11/24 07:23 BP 145/73 05/11/24 07:23 Pulse Ox 93 L 05/11/24 07:23 FiO2 Intake & Output 05/10/24 05/11/24 05/11/24 18:59 06:59 18:59 Other: Voiding Method Toilet Toilet # Voids 3 1 - Exam GENERAL DESCRIPTION: An elderly male lying in bed in no distress RESPIRATORY SYSTEM: Unlabored breathing , decreased breath sounds at bases HEART: S1 S2 regular rate and rhythm , ABDOMEN: Soft , no tenderness, left gluteal area still have significant induration EXTREMITIES: No edema feet - Labs CBC & Chem 7: 05/11/24 05:15 05/11/24 05:15 Labs: Abnormal Lab Results - Last 24 Hours (Table) 05/11/24 05/11/24 Range/Units 05:15 05:15 RBC 3.52 L (4.40-5.60) X 10*6/uL Hgb 11.4 L (13.0-17.0) g/dL Hct 33.9 L (39.6-50.0) % MCH 32.4 H (27.0-32.0) pg RDW 15.6 H (11.5-14.5) % Potassium 3.3 L (3.5-5.5) mmol/L Anion Gap 12.40 H (4.00-12.00) mmol/L BUN 5.2 L (9.0-27.0) mg/dL BUN/Creatinine Ratio 8.67 L (12.00-20.00) Ratio Calcium 7.4 L (8.7-10.3) mg/dL Microbiology - Last 24 Hours (Table) 05/07/24 18:30 Blood Culture - Preliminary Blood 05/08/24 13:21 Anaerobic Culture - Preliminary Buttock 05/08/24 13:21 Gram Stain - Final Buttock Wound Culture - Final Methicillin resist S. aureus Assessment and Plan (1) Abscess, gluteal, left Current Visit: Yes Status: Acute Code(s): L02.31 - CUTANEOUS ABSCESS OF BUTTOCK SNOMED Code(s): 51274227 (2) Perirectal abscess Current Visit: Yes Status: Acute Code(s): K61.1 - RECTAL ABSCESS SNOMED Code(s): 03471044 Plan: 1patient presented to hospital with sores to the bilateral gluteal area more marked on the left gluteal area with the area of induration CT did shows perirectal phlegmon but noted to be an abscess we will need to cover for the gram-positive as well as gram-negative pathogen keeping in mind location of this abscess/phlegmon. 2local culture currently growing MRSA, anaerobe currently pending 3patient to continue with vancomycin pharmacy to dose however the dose need to be adjusted up to keep the trough around 15 we will discontinue Unasyn still have significant duration will benefit from short course of IV daptomycin on discharge Dictation was produced using [employer] dictation software. please excuse any grammatical, word or spelling errors. Time with Patient: Less than 30
--- NOTE | 2024-05-12 00:10 | P.PN ---
Subjective Progress Note Date: 05/11/24 HISTORY OF PRESENT ILLNESS: 79-year-old with active medical history of A-fib, mixed systolic and diastolic congestive heart failure, hypertension, hyperlipidemia, chronic kidney disease, chronic pain syndrome, BPH, history of alcoholism, history of multiple joint replacement, history of severe cervical spine myalgia and arthritis, who was hospitalized Over a month ago with worsening congestive heart failure along with altered mental status and A-fib with RVR with new onset of CVA was in the hospital for total of 1 week ended up going to [facility] rehab where patient spent almost 4 weeks has been doing much better at home with his since has been able to manage with some help. He presented to the office on 05/07/2024 with significant pain and discomfort in the buttocks area worsening on the right and the left side with his exam found to have 2 abscess the 1 on the left is little bit larger both are quite inflamed and causing significant amount of discomfort irritation and pain. With low-grade temperature and recurrent symptoms was sent to the emergency department where was seen and evaluated his white blood cell continue to be normal his kidney function improved but potassium and sodium are little bit low patient was initiated Unasyn IV will be admitted to the hospital general surgery was consulted for possible I&D and antibiotic has vancomycin in it and will consult infectious disease waiting for final culture. 05/08/2024:There is admitted from the office yesterday for large abscess in the buttocks area and that doing CAT scan in the emergency room and showed inflammatory phlegmon left perirectal lesion measures 6.3 x 3.6 cm no drainable abscess identified this point surgical consultation is on and will consult in fectious disease as well. Will continue using antibiotic between Unasyn and vancomycin and see if the culture shows anything. With recent history patient had with debility and CVA along with anasarca CHF and A-fib with RVR we have to keep him moving very fast otherwise he become more stiff and will have harder time ambulating patient getting him back home when he is ready. 05/11/2024: Continue to be treated for abscess in the buttocks area culture so far came back with MRSA and he is remain currently on vancomycin and Unasyn antibiotic might be changed after the culture was completed. He still does not require any surgical intervention and the abscess site feels much smaller. REVIEW OF SYSTEMS: CONSTITUTIONAL: Well-developed no acute respiratory distress. EYES: No icterus sclerae, no conjunctivitis. EARS, NOSE, MOUTH, THROAT, and FACE: No sore throat, lymphadenopathy, carotid bruits or deformity. RESPIRATORY: No shortness of breath cough or wheezes CARDIOVASCULAR: No chest pain or angina slight PND and orthopnea. GASTROINTESTINAL: Distended abdomen with slight nausea constipation. GENITOURINARY: Decreased urine output with mild irritation burning and discomfort. INTEGUMENT/BREAST: Positive pain and discomfort with what looks like to abscess in the perirectal area. Rectal: There is an inflamed to area worsening on the left with average 4.5 cm below the right side about 2 x 3 cm quite inflamed as well none of them has an open head so far. HEMATOLOGIC/LYMPHATIC: Negative for bleed or purpura. MUSCULOSKELTAL: Chronic arthralgia and myalgia. NEURLOGICAL: No LOC, Sz or syncope, blurred vision dizziness or abnormality.. BEHAVIORAL/PSYCH: Negative. ENDOCRINE: Negative. PHYSICAL EXAMINATION: General Appearance: Alert, cooperative, no distress, seems slight discomfort laying in bed. Neck HEENT: Supple, no lymphadenopathy, no thyroid enlargement, no carotid bruits. Significant stiffness and discomfort in the cervical spine area. Lungs: Decreased breath sound the bases positive rhonchi slight crackles in the right base. Chest Wall: Decreased expansion with deep inspiration no tenderness and no deformity was found on exam, no costochondral pain or discomfort. Heart: Irregular rate and rhythm, S1, S2 positive S3 positive systolic murmur. No tachycardia with heart rates under control. Back: Symmetric, no curvature, ROM normal, severe scoliosis with slight CVA tenderness with scar tissue from previous surgery. Abdomen: Soft, non-tender, bowel sounds active all four quadrants, no masses, no organomegaly. Slight distended abdomen. Mild discomfort in the right upper quadrant area. Rectum: Is to abscess quad on the left quite big 1 on the right slightly smaller both of them have quite irritation redness discomfort with no drainage. Extremities: Extremities normal, atraumatic, no cyanosis positive edema 1-2+ lower extremity worse on the right of the left side. Foot exam shows slight warmness discomfort and swelling with chronic edema. Pulses: 2+ and symmetric. Skin: Skin color, texture, tugor normal, no rashes or lesions. Neurologic: Alert oriented with slight confusion cranial nerves II through XII intact, no motor deficit, no abnormal balance or gait. ASSESSMENT AND PLAN: _Rectal abscess: Still larger abscess 6.3 x 3.6 cm has been slightly but better on IV antibiotic continue current treatment management. No surgical interventi on required so far. _Chronic pain syndrome: Changes hydrocodone up to 10/325 up to 4 times a day as needed continue to be combined with baclofen and Flexeril as needed basis. _Recent history of stroke: Patient still have minimal residual has been doing much better able to move all his extremities and had full strength mobility with help. _Anasarca and worsening edema: Continue furosemide and spironolactone has done very well specially with his albumin and protein level is good. _A-fib with RVR: Patient is quite bit tachycardic, started on Cardizem drip, continue metoprolol with possible digoxin patient might require to go on amiodarone, electrolyte and thyroid is requested to make sure there is no other abnormality will consult cardiology given to his last echocardiogram continue to watch his A-fib repeat EKG in the morning. _congestive heart failure: No chest pain or angina currently doing much better with medication. _Severe cervical spine radiculopathy with severe cervical spine stenosis and mild bulging disc was seen orthopedic has been on conservative management. _Hypertension: remain on Zestril 20 mg daily, amlodipine 10 mg daily, torsemide or furosemide along with diltiazem CD. _Hyperlipidemia: Continue atorvastatin 20 mg a day. _History of alcoholism: Patient has not had any drink in several weeks not h aving any signs and symptoms of withdrawal or delirium tremor. Continue folic acid and multivitamin along with thiamine. _Previous history of GI bleed with no recurrent bleed at this point remain on omeprazole 20 mg daily. _Anticoagulation: Continue patient on Eliquis does not seem there is any sign of bleed. _Multiple fall: Most likely secondary to his cervical spine radiculopathy and generalized weakness with spinal stenosis of the lower lumbar area, again back to do physical therapy and occasional therapy and see if patient can receive to ambulate with help. _Debility: With patient current condition and recent admission this year that which is not on the move fast enough he is getting get so stiff will be harder to get him home soon. Mobility still significantly decreased continue physical therapy not a clear the patient again require rehab or not but he might require more IV antibiotics. Objective - Vital Signs Vital signs: Vital Signs Temp 98.3 F 05/11/24 02:00 Pulse 79 05/11/24 02:00 Resp 18 05/10/24 14:45 BP 119/71 05/11/24 02:00 Pulse Ox 91 L 05/11/24 02:00 FiO2 Intake & Output 05/10/24 05/11/24 05/11/24 18:59 06:59 18:59 Other: Voiding Method Toilet Toilet # Voids 3 - Labs CBC & Chem 7: 05/11/24 05:15 05/11/24 05:15 Labs: Microbiology - Last 24 Hours (Table) 05/07/24 18:30 Blood Culture - Preliminary Blood 05/08/24 13:21 Anaerobic Culture - Preliminary Buttock 05/08/24 13:21 Gram Stain - Final Buttock Wound Culture - Final Methicillin resist S. aureus
[2024-05-12 08:33] VITALS: BP 122/76; PULSE 101; TEMP 98.4
[2024-05-12 08:52] VITALS: RESP 18
--- NOTE | 2024-05-12 12:50 | P.PN ---
Subjective Progress Note Date: 05/12/24 Principal diagnosis: Reason for follow-up is bilateral gluteal and perirectal abscess/phlegmon Patient is a 79-year-old male with a past medical history significant for hypertension hyperlipidemia CVA TIA atrial fibrillation diverticular disease presenting to the hospital for evaluation of sores on his gluteal area, CT has been suggestive of perirectal phlegmon. On today's evaluation that is 05/12/2024, Patient is afebrile this morning patient denies having any chest pain shortness of breath or cough, the patient is breathing comfortably on room air, patient denies any abdominal pain no diarrhea no nausea no vomiting, pain to the left gluteal area has slightly decreased in intensity. Patient did not have a new lab draw today anaerobe culture have been negative Objective - Vital Signs Vital signs: Vital Signs Temp 98.4 F 05/12/24 07:35 Pulse 101 H 05/12/24 07:35 Resp 18 05/12/24 08:51 BP 122/76 05/12/24 07:35 Pulse Ox 94 L 05/12/24 07:35 FiO2 Intake & Output 05/11/24 05/12/24 05/12/24 18:59 06:59 18:59 Intake Total 120 Balance 120 Intake: Oral 120 Other: Voiding Method Toilet Toilet # Voids 2 1 - Exam GENERAL DESCRIPTION: An elderly male lying in bed in no distress RESPIRATORY SYSTEM: Unlabored breathing , decreased breath sounds at bases HEART: S1 S2 regular rate and rhythm , ABDOMEN: Soft , no tenderness, left gluteal area still have significant induration EXTREMITIES: No edema feet - Labs CBC & Chem 7: 05/11/24 05:15 05/11/24 05:15 Assessment and Plan (1) Abscess, gluteal, left Current Visit: Yes Status: Acute Code(s): L02.31 - CUTANEOUS ABSCESS OF BUTTOCK SNOMED Code(s): 91939453 (2) Perirectal abscess Current Visit: Yes Status: Acute Code(s): K61.1 - RECTAL ABSCESS SNOMED Code(s): 94887563 Plan: 1patient presented to hospital with sores to the bilateral gluteal area more marked on the left gluteal area with the area of induration CT did shows perirectal phlegmon but noted to be an abscess we will need to cover for the gra m-positive as well as gram-negative pathogen keeping in mind location of this abscess/phlegmon. 2local culture currently growing MRSA, anaerobe cultures negative 3patient did have some clinical improvement still have significant area of induration and concern for possible failure of oral antibiotic would recommend a 10-day course of oral daptomycin on discharge. For which midline will be placed at the bedside questions were answered Dictation was produced using [employer] dictation software. please excuse any grammatical, word or spelling errors. Time with Patient: Less than 30
--- NOTE | 2024-05-12 12:53 | P.PN ---
Subjective Progress Note Date: 05/12/24 CHIEF COMPLAINT: Perirectal phlegmon HISTORY OF PRESENT ILLNESS: Patient reports improvement in his pain and swelling in the buttocks area. No significant drainage. Patient has no pain in the left groin today. He has no new complaints. He wants to be discharged. Awaiting infectious ease recommendations for antibiotics. Afebrile. WBC 7.91 Patient seen and examined with Dr. Singh PHYSICAL EXAM: VITAL SIGNS: Reviewed. GENERAL: Well-developed in no acute distress. ABDOMEN: Soft. Nondistended. Fat-containing umbilical hernia reducible. NEUROLOGIC: Alert and oriented. Cranial nerves II through XII grossly intact. Skin: Perirectal phlegmon improving. Decrease in tenderness. Decrease in induration and erythema ASSESSMENT: 1. Perirectal phlegmon improving 2. Bilateral inguinal hernias 3. Fat-containing umbilical hernia PLAN: -No surgical intervention planned at this time -Patient can be discharged from surgical standpoint -Recommend outpatient follow-up for hernias -Discharge antibiotics per ID service -Continue offloading -Dr. Singh will be out of town starting tomorrow and returning on 05/18/2024. Dr. Munguia and Dr. Hernandez will be covering his patients Physician Staff [employer] note has been reviewed by physician. Signing provider agrees with the documented findings, assessment, and plan of care. Objective - Vital Signs Vital signs: Vital Signs Temp 98.4 F 05/12/24 07:35 Pulse 101 H 05/12/24 07:35 Resp 18 05/12/24 08:51 BP 122/76 05/12/24 07:35 Pulse Ox 94 L 05/12/24 07:35 FiO2 Intake & Output 05/11/24 05/12/24 05/12/24 18:59 06:59 18:59 Intake Total 120 Balance 120 Intake: Oral 120 Other: Voiding Method Toilet Toilet # Voids 2 1 - Labs CBC & Chem 7: 05/11/24 05:15 05/11/24 05:15
--- NOTE | 2024-05-12 13:12 | P.DS ---
Providers Date of admission: 05/08/24 13:47 Attending physician: Chris Rice Consults: 05/07/24 20:02 Consult Physician Urgent Consulting Provider: Jerald Singh Consult Reason/Comments: Perirectal phlegmon Do you want consulting provider notified?: Yes 05/08/24 10:00 Consult Physician Routine Consulting Provider: Derikc Amaral Consult Reason/Comments: abscess on the Buttocks Bilaterally Do you want consulting provider notified?: Yes Primary care physician: [facility] Course: HISTORY OF PRESENT ILLNESS: 79-year-old with active medical history of A-fib, mixed systolic and diastolic congestive heart failure, hypertension, hyperlipidemia, chronic kidney disease, chronic pain syndrome, BPH, history of alcoholism, history of multiple joint replacement, history of severe cervical spine myalgia and arthritis, who was hospitalized Over a month ago with worsening congestive heart failure along with altered mental status and A-fib with RVR with new onset of CVA was in the hospital for total of 1 week ended up going to [facility] rehab where patient spent almost 4 weeks has been doing much better at home with his since has been able to manage with some help. He presented to the office on 05/07/2024 with significant pain and discomfort in the buttocks area worsening on the right and the left side with his exam found to have 2 abscess the 1 on the left is little bit larger both are quite inflamed and causing significant amount of discomfort irritation and pain. With low-grade temperature and recurrent symptoms was sent to the emergency department where was seen and evaluated his white blood cell continue to be normal his kidney function improved but potassium and sodium are little bit low patient was initiated Unasyn IV will be admitted to the hospital general surgery was consulted for possible I&D and antibiotic has vancomycin in it and will consult infectious disease waiting for final culture. 05/08/2024:There is admitted from the office yesterday for large abscess in the buttocks area and that doing CAT scan in the emergency room and showed inflammatory phlegmon left perirectal lesion measures 6.3 x 3.6 cm no drainable abscess identified this point surgical consultation is on and will consult infectious disease as well. Will continue using antibiotic between Unasyn and vancomycin and see if the culture shows anything. With recent history patient had with debility and CVA along with anasarca CHF and A-fib with RVR we have to keep him moving very fast otherwise he become more stiff and will have harder time ambulating patient getting him back home when he is ready. 05/11/2024: Continue to be treated for abscess in the buttocks area culture so far came back with MRSA and he is remain currently on vancomycin and Unasyn antibiotic might be changed after the culture was completed. He still does not require any surgical intervention and the abscess site feels much smaller. 05/12/2024: The patient is doing much better, the abscess has been smaller and half the size from his original presentation. The culture from it came back as an MRSA infectious disease when I switched antibiotic to daptomycin and keep patient for 2 more weeks on IV antibiotics. Patient will be able to go home with [facility] along with physical therapy as well and will be seen back in the office this week or next week if the area become more pinpointed to ahead it can be drained easy will work on it in the office otherwise he can see general surgery in a week or so to drain it. REVIEW OF SYSTEMS: CONSTITUTIONAL: Well-developed no acute respiratory distress. EYES: No icterus sclerae, no conjunctivitis. EARS, NOSE, MOUTH, THROAT, and FACE: No sore throat, lymphadenopathy, carotid bruits or deformity. RESPIRATORY: No shortness of breath cough or wheezes CARDIOVASCULAR: No chest pain or angina slight PND and orthopnea. GASTROINTESTINAL: Distended abdomen with slight nausea constipation. GENITOURINARY: Decreased urine output with mild irritation burning and discomfort. INTEGUMENT/BREAST: Positive pain and discomfort with what looks like to abscess in the perirectal area. Rectal: There is an inflamed to area worsening on the left with average 4.5 cm below the right side about 2 x 3 cm quite inflamed as well none of them has an open head so far. HEMATOLOGIC/LYMPHATIC: Negative for bleed or purpura. MUSCULOSKELTAL: Chronic arthralgia and myalgia. NEURLOGICAL: No LOC, Sz or syncope, blurred vision dizziness or abnormality.. BEHAVIORAL/PSYCH: Negative. ENDOCRINE: Negative. PHYSICAL EXAMINATION: General Appearance: Alert, cooperative, no distress, seems slight discomfort laying in bed. Neck HEENT: Supple, no lymphadenopathy, no thyroid enlargement, no carotid bruits. Significant stiffness and discomfort in the cervical spine area. Lungs: Decreased breath sound the bases positive rhonchi slight crackles in the right base. Chest Wall: Decreased expansion with deep inspiration no tenderness and no deformity was found on exam, no costochondral pain or discomfort. Heart: Irregular rate and rhythm, S1, S2 positive S3 positive systolic murmur. No tachycardia with heart rates under control. Back: Symmetric, no curvature, ROM normal, severe scoliosis with slight CVA tenderness with scar tissue from previous surgery. Abdomen: Soft, non-tender, bowel sounds active all four quadrants, no masses, no organomegaly. Slight distended abdomen. Mild discomfort in the right upper quadrant area. Rectum: Is to abscess quad on the left quite big 1 on the right slightly smaller both of them have quite irritation redness discomfort with no drainage. Extremities: Extremities normal, atraumatic, no cyanosis positive edema 1-2+ lower extremity worse on the right of the left side. Foot exam shows slight warmness discomfort and swelling with chronic edema. Pulses: 2+ and symmetric. Skin: Skin color, texture, tugor normal, no rashes or lesions. Neurologic: Alert oriented with slight confusion cranial nerves II through XII intact, no motor deficit, no abnormal balance or gait. ASSESSMENT AND PLAN: _Rectal abscess: Still larger abscess 6.3 x 3.6 cm has been slightly but better on IV antibiotic continue current treatment management. No surgical intervention required so far. _Chronic pain syndrome: Changes hydrocodone up to 10/325 up to 4 times a day as needed continue to be combined with baclofen and Flexeril as needed basis. _Recent history of stroke: Patient still have minimal residual has been doing much better able to move all his extremities and had full strength mobility with help. _Anasarca and worsening edema: Continue furosemide and spironolactone has done very well specially with his albumin and protein level is good. _A-fib with RVR: Patient is quite bit tachycardic, started on Cardizem drip, continue metoprolol with possible digoxin patient might require to go on amiodarone, electrolyte and thyroid is requested to make sure there is no other abnormality will consult cardiology given to his last echocardiogram continue to watch his A-fib repeat EKG in the morning. _congestive heart failure: No chest pain or angina currently doing much better with medication. _Severe cervical spine radiculopathy with severe cervical spine stenosis and mild bulging disc was seen orthopedic has been on conservative management. _Hypertension: remain on Zestril 20 mg daily, amlodipine 10 mg daily, torsemide or furosemide along with diltiazem CD. _Hyperlipidemia: Continue atorvastatin 20 mg a day. _History of alcoholism: Patient has not had any drink in several weeks not having any signs and symptoms of withdrawal or delirium tremor. Continue folic acid and multivitamin along with thiamine. _Previous history of GI bleed with no recurrent bleed at this point remain on omeprazole 20 mg daily. _Anticoagulation: Continue patient on Eliquis does not seem there is any sign of bleed. _Multiple fall: Most likely secondary to his cervical spine radiculopathy and generalized weakness with spinal stenosis of the lower lumbar area, again back to do physical therapy and occasional therapy and see if patient can receive to ambulate with help. _Debility: With patient current condition and recent admission this year that which is not on the move fast enough he is getting get so stiff will be harder to get him home soon. Mobility still significantly decreased continue physical therapy not a clear the patient again require rehab or not but he might require more IV antibiotics. Discussion: Long talk with the patient and his comfort level is much better compared to his original presentation, he is willing to go home with home care and IV antibiotics and to be seen in the office in the next few days. Hospital course: Patient is admitted to the hospital on 05/07/2024 for significant pain and discomfort in the buttocks area found to have 2 large abscess in the gluteal the 1 in the left side with major at 6.3 x 3.6 cm and the entire area is extremely quite uncomfortable. Was placed on Unasyn and vancomycin consult to general surgery and infectious disease. CAT scan was performed that showed phlegmon in the left perirectal region measure at 6.3 x 3.6 cm not a drainable abscess identified at this point and despite consulting general surgery could not drain this abscess yet. Patient was initiated with infectious disease and current management and continue on. Culture from the area from the buttocks came back as an MRSA antibiotic will be switched to daptomycin IV patient to be continue on for total of 2 weeks as an outpatient. Patient mobility was significantly decreased because of his discomfort and the pain level which has improved some and he is doing much better able to ambulate with a use of walker. Midline was placed and patient be discharged home with [facility] home care along with physical therapy. Time spent on patient discharge was over 35 minutes. Plan - Discharge Summary Discharge Rx Participant: No New Discharge Prescriptions: New Atorvastatin [Lipitor] 40 mg PO HS tab Acetaminophen Tab [Tylenol] 650 mg PO Q6HR PRN tab PRN Reason: Mild Pain Or Fever > 100.5 DAPTOmycin [Cubicin] 350 mg IVPB Q24HR each Continue Apixaban [Eliquis] 5 mg PO BID Loratadine [Claritin] 10 mg PO HS Digoxin [Digitek] 125 mcg PO DAILY #30 tab Metoprolol Tartrate [Lopressor] 50 mg PO BID Multivitamins, Thera [Multivitamin (formulary)] 1 tab PO HS Lactulose 10 - 20 gm PO DAILY PRN #473 ml PRN Reason: Constipation lisinopriL [Zestril] 10 mg PO DAILY Silver Sulfadiazine [Silver Sulfadiazine 1%] 1 applic TOPICAL BID Magnesium Oxide [Magox 400] 400 mg PO BID Diltiazem Cd [Cardizem CD] 240 mg PO DAILY #30 cap allopurinoL [Zyloprim] 200 mg PO HS Empagliflozin [Jardiance] 10 mg PO DAILY Furosemide [Lasix] 40 mg PO DAILY Pantoprazole [Protonix] 40 mg PO DAILY Tamsulosin [Flomax] 0.4 mg PO DAILY Thiamine [Vitamin B-1] 100 mg PO HS Discontinued Atorvastatin [Lipitor] 40 mg PO HS Doxycycline Hyclate 100 mg PO BID Discharge Medication List Apixaban [Eliquis] 5 mg PO BID 11/19/23 [History] Loratadine [Claritin] 10 mg PO HS 11/19/23 [History] Magnesium Oxide [Magox 400] 400 mg PO BID 11/19/23 [History] Digoxin [Digitek] 125 mcg PO DAILY #30 tab 11/26/23 [Rx] Diltiazem Cd [Cardizem CD] 240 mg PO DAILY #30 cap 11/26/23 [Rx] Empagliflozin [Jardiance] 10 mg PO DAILY 03/26/24 [History] Furosemide [Lasix] 40 mg PO DAILY 03/26/24 [History] Metoprolol Tartrate [Lopressor] 50 mg PO BID 03/26/24 [History] Multivitamins, Thera [Multivitamin (formulary)] 1 tab PO HS 03/26/24 [History] allopurinoL [Zyloprim] 200 mg PO HS 03/26/24 [History] Lactulose 10 - 20 gm PO DAILY PRN #473 ml 05/01/24 [Rx] Pantoprazole [Protonix] 40 mg PO DAILY 05/07/24 [History] Silver Sulfadiazine [Silver Sulfadiazine 1%] 1 applic TOPICAL BID 05/07/24 [History] Tamsulosin [Flomax] 0.4 mg PO DAILY 05/07/24 [History] Thiamine [Vitamin B-1] 100 mg PO HS 05/07/24 [History] lisinopriL [Zestril] 10 mg PO DAILY 05/07/24 [History] Acetaminophen Tab [Tylenol] 650 mg PO Q6HR PRN tab 05/12/24 [Rx] Atorvastatin [Lipitor] 40 mg PO HS tab 05/12/24 [Rx] DAPTOmycin [Cubicin] 350 mg IVPB Q24HR each 05/12/24 [Rx] Follow up Appointment(s)/Referral(s): Chris Rice MD [Primary Care Provider] - 1-2 days [facility] [NON-STAFF] - 05/13/24 ([facility] will call you to schedule the time for your outpatient IV antibiotic infusions today for tomorrow. ) Derick Amaral MD [STAFF PHYSICIAN] - 1 Week [facility], [NON-STAFF] - 1-2 Days ([facility] will call you to schedule your in home visits for nursing and physical therapy. ) Jerald Singh MD [STAFF PHYSICIAN] - 1 Week Discharge Disposition: HOME WITH HOME HEALTH SERVICES
[2024-05-12] MEDS: DAPTOmycin 350 MG in SODIUM CHLORIDE 0.9% 50 ML IVPB SCH (14:34)
[2024-05-13] MEDS ORDERED: VANCOMYCIN TROUGH DUE 1 EACH MISC MISCELLANE ONE (08:00)
== END 2024-05-12 16:43 | disposition home health service (06) | DRG 394 ==
LOC: EC 15:34 → 4SSUR 22:56 → OBSVTOIN 05-08 13:47 → 4SSUR 05-08 17:50
PROVIDERS: ADMIT Internal Medicine Geriatric Medicine; ATTEND Internal Medicine Geriatric Medicine
DX: K61.1 Rectal abscess (principal); E87.1 Hypo-osmolality and hyponatremia; I13.0 Hypertensive heart and chronic kidney disease with heart failure and stage 1 through stage 4 chronic kidney disease, or unspecified chronic kidney disease; I50.42 Chronic combined systolic (congestive) and diastolic (congestive) heart failure; L02.31 Cutaneous abscess of buttock; N18.9 Chronic kidney disease, unspecified; I48.91 Unspecified atrial fibrillation; G89.4 Chronic pain syndrome; M48.02 Spinal stenosis, cervical region; M54.12 Radiculopathy, cervical region; R29.6 Repeated falls; K40.20 Bilateral inguinal hernia, without obstruction or gangrene, not specified as recurrent; K42.9 Umbilical hernia without obstruction or gangrene; E78.5 Hyperlipidemia, unspecified; N40.0 Benign prostatic hyperplasia without lower urinary tract symptoms; K21.9 Gastro-esophageal reflux disease without esophagitis; E87.6 Hypokalemia; M48.061 Spinal stenosis, lumbar region without neurogenic claudication; I69.398 Other sequelae of cerebral infarction; R53.1 Weakness; B95.62 Methicillin resistant Staphylococcus aureus infection as the cause of diseases classified elsewhere; Z96.643 Presence of artificial hip joint, bilateral; Z96.653 Presence of artificial knee joint, bilateral; Z79.84 Long term (current) use of oral hypoglycemic drugs; Z79.899 Other long term (current) drug therapy; Z79.01 Long term (current) use of anticoagulants; Z85.828 Personal history of other malignant neoplasm of skin; Z87.891 Personal history of nicotine dependence
CPT/HCPCS: 36410; 36415; 74177; 76937; 80048; 80053; 80202; 83605; 85025; 85027; 85652; 86140; 87040; 87070; 87075; 87077; 87186; 87205; 96365; 96366; 96367; 99285

== ENCOUNTER → 2024-06-17 | Outpatient (CLI) | payer MEDICARE ==
--- NOTE | 2024-06-17 16:36 | US ---
EXAMINATION TYPE: US kidneys/renal and bladder DATE OF EXAM: 06/17/2024 COMPARISON: CT: 05/07/24, US: 11/20/23 CLINICAL INDICATION: Male, 79 years old with history of E83.42 HYPOMAGNESEMIA; hypomagnesmia TECHNIQUE: Grayscale and color Doppler imaging of the bilateral kidneys and urinary bladder: FINDINGS: EXAM MEASUREMENTS: Right Kidney: 11.9 x 6.7 x 6.1 cm Left Kidney: 11.7 x 5.4 x 5.4 cm Right Kidney: cystic area seen measuring 3.8 x 3.6 x 3.5cm mid pole Left Kidney: cystic area seen at mid pole medially measuring 1.9 x 1.9 x 0.9cm Bladder: Wall appears thickened Bilateral Jets seen: Yes There is no evidence for hydronephrosis at this point in time. Cortical medullary differentiation is maintained bilaterally. No nephrolithiasis is seen. Right midpole simple anechoic cyst measuring up to 3.8 cm. Left renal mid pole medial simple anechoic cyst measuring 1.9 cm. The urinary bladder is a nechoic. Bilateral ureteral jets identified. IMPRESSION: 1. No hydronephrosis or nephrolithiasis. 2. Bilateral simple renal cysts. [facility], , 06/17/2024 4:34 PM
== END | disposition home or self-care (01) ==
LOC: RADUSWWP 16:02
PROVIDERS: ATTEND Internal Medicine Geriatric Medicine
CPT/HCPCS: 76770

== ENCOUNTER → 2024-06-22 | Outpatient (CLI) | payer MEDICARE ==
[2024-06-22 20:31] LABS: BUN/Creat Ratio 11.18 Ratio (12.00-20.00); Blood Urea Nitrogen 12.3 mg/dL (9.0-27.0); Calcium 9.9 mg/dL (8.7-10.3); Carbon Dioxide 25.4 mmol/L (21.6-31.8); Chloride 102 mmol/L (96-109); Glucose 111 mg/dL (70-110); Potassium 5.2 mmol/L (3.5-5.5); Sodium 139 mmol/L (135-145)
[2024-06-22 21:30] LABS: NT-Pro-B-Type Natriuretic Pept 1753 pg/mL (0-450)
== END | disposition home or self-care (01) ==
LOC: LABWHC1 13:37
PROVIDERS: ATTEND Internal Medicine Cardiovascular Disease
DX: I50.32 Chronic diastolic (congestive) heart failure (principal)
CPT/HCPCS: 36415; 80048; 83880

== ENCOUNTER 2024-07-01 06:40 | Day surgery (SDC) | payer MEDICARE ==
[2024-07-01] MEDS: IV FLUID CONTINUATION 1,000 ML IV ONE ×2 (07:18→13:25)
[2024-07-01 07:40] LABS: Glucose,Whole Blood 99 mg/dL (70-110)
[2024-07-01 07:42] LABS: Anisocytosis Slight; Basophils # (A) 0.1 k/uL (0-0.2); Basophils % (A) 1 %; Eosinophils # (A) 0.5 k/uL (0-0.7); Eosinophils % (A) 5 %; HCT 43.6 % (39.0-53.0); HGB 14.2 gm/dL (13.0-17.5); Lymphocytes % (A) 19 %; MCH 32.6 pg (25.0-35.0); MCHC 32.5 g/dL (31.0-37.0); MCV 100.4 fL (80.0-100.0); Macrocytosis Slight; Mean Platelet Volume 8.3; Monocytes # (A) 0.6 k/uL (0-1.0); Monocytes % (A) 6 %; Neutrophils # (A) 6.9 k/uL (1.3-7.7); Neutrophils % (A) 68 %; Platelet Count 235 k/uL (150-450); RBC 4.35 m/uL (4.30-5.90); RDW 16.4 % (11.5-15.5); WBC 10.1 k/uL (3.8-10.6)
[2024-07-01] MEDS: DEXAMETHASONE SOD PHOSPHATE 4 MG/ML 1 ML VIAL IV ONE (07:57)
[2024-07-01] MEDS: ONDANSETRON 4 MG/2 ML VIAL IVP ONE (07:57)
[2024-07-01] MEDS: LACTATED RINGERS 1,000 ML IV SCH (07:58)
[2024-07-01] MEDS: MIDAZOLAM 2 MG/2 ML VIAL IVP ONE (08:06)
--- NOTE | 2024-07-01 08:17 | P.ANPRN ---
Procedure Note - Anesthesia - Nerve Block Performed Bilateral Erector Spinae Single Time Out Performed: Yes Date of Procedure: 07/01/24 Procedure Start Time: 08:05 Procedure Stop Time: 08:10 Location of Patient: PreOp Indication: Acute Post-Operative Pain, Analgesia, Requested by Surgeon Sedation Type: Sedate with meaningful contact maintained Preparation: Sterile Prep Position: Prone Catheter: None Needle Types: Pajunk Needle Gauge: 21 Ultrasound used to visualize needle placement: Yes Ultrasound used to observe medication spread: Yes Injectate: 0.5% Ropivacaine (see comment for volume) (Ropiv 20ml+Decadron 4mg---Each side. Q66-Btajjp level.) Blood Aspirated: No Pain Paresthesia on Injection Noted: No Resistance on Injection: Normal Image Stored and Saved: Yes Events: Uneventful and Well Tolerated
[2024-07-01] MEDS ORDERED: GLYCOPYRROLATE 0.2 MG/ML 2 ML VIAL ONE (08:36)
[2024-07-01] MEDS ORDERED: ROCURONIUM 10 MG/ML (5 ML VIAL) IV ONE (08:36)
[2024-07-01] MEDS ORDERED: DEXAMETHASONE SOD PHOSPHATE 4 MG/ML 1 ML VIAL ONE (08:36)
[2024-07-01] MEDS ORDERED: PROPOFOL 10 MG/ML 20 ML VIAL IV ONE (08:36)
[2024-07-01] MEDS ORDERED: ROPIVACAINE 5 MG/ML 30 ML VIAL ONE (08:36)
[2024-07-01] MEDS ORDERED: LABETALOL 5 MG/ML VIAL MDV ONE (08:36)
[2024-07-01] MEDS ORDERED: SUCCINYLCHOLINE CHLORIDE 200 MG/10 ML VIAL IV ONE (08:36)
[2024-07-01] MEDS ORDERED: HEPARIN SODIUM,PORCINE 5,000 UNIT/ML 1 ML VIAL ONE (08:36)
[2024-07-01] MEDS ORDERED: NEOSTIGMINE 1 MG/ML 10 ML VIAL ONE (08:36)
[2024-07-01] MEDS ORDERED: fentaNYL (PF) 50 MCG/ML 2 ML AMP ONE (08:36)
[2024-07-01] MEDS: LACTATED RINGERS 1,000 ML IV ONE (08:55)
[2024-07-01] MEDS: BUPIVACAINE (PF) 0.25% 30 ML VIAL SQ ONE (08:58)
[2024-07-01] MEDS: HYDROmorphone 0.5 MG/0.5 ML SYRINGE IVP PRN (10:10)
[2024-07-01 10:19] VITALS: TEMP 96.8
[2024-07-01] MEDS: KETOROLAC 15 MG/ML 1 ML VIAL IVP STA (10:20)
[2024-07-01 11:05] VITALS: RESP 16
--- NOTE | 2024-07-01 12:58 | P.OP ---
Date of Procedure: 07/01/24 Preoperative Diagnosis: Bilateral inguinal hernia Postoperative Diagnosis: Bilateral inguinal hernia Procedure(s) Performed: Robotic bilateral inguinal hernia repair with mesh placement Anesthesia: DADA Surgeon: Chel Bose Pathology: none sent Condition: stable Disposition: same day Indications for Procedure: 79-year-old male presents today for elective bilateral inguinal hernia repair. He has had bulges in bilateral groin that have been increasing in size and left side more so than the right side causing pain. Plan is for robotic repair with mesh placement. Risks, benefits and alternatives to the procedure including risks of bleeding, infection and mesh complications were discussed. Consent was provided. All questions answered prior to attending the operating suite. Operative Findings: Bilateral inguinal indirect hernias Description of Procedure: The patient was brought back to the operating suite and placed in supine position. After general endotracheal anesthesia was induced, arms were tucked to the sides bilaterally and all pressure points were padded. SCDs were also placed in bilateral lower extremities and were working throughout the entire case. Preoperative antibiotics were given prior to incision. A timeout was performed. A supraumbilical incision was made approximately 20 cm superior to the pubic symphysis. Dissection was carried to the fascia and the fascia was incised and an 8 mm trocar was placed. Pneumoperitoneum was achieved. 2 additional incisions were made approximately 11 cm lateral to the supraumbilical incision and 8 mm trocars were placed. The patient was then placed in Trendelenburg position and the hernia site was noted bilaterally and both hernias were noted as indirect inguinal hernias. The robot was then docked appropriately. Incision was then made just lateral to the medial umbilical ligament on the right side with the monopolar scissors and the peritoneal flap was created and taken down towards Juan R's ligament. The flap was then extended laterally. Attention was then turned to the indirect inguinal hernia. The sac was freed from the cord all while preserving the cord structures. At this point the indirect hernia was reduced. Attention was then turned towards the left side and incision was made lateral to the medial umbilical ligament on the left side with monopolar scissors and the peritoneal flap was created and was taken down towards Juan R's ligament. The flap was then extended laterally. Attention was then turned to the indirect inguinal hernia. The sac was then freed from the cord all while preserving the cord structures. At this point the indirect hernia was reduced. Once the entire space was appropriately dissected out, the Parietex Progrip meshes were placed and unrolled over the hernia sites. Once appropriately in place without any kinks or wrinkles, the peritoneal flap was closed using a running 2 OV lock suture. Once this was completed we removed all robotic instruments and undocked the robot. The supraumbilical fascial inci blanca was closed with an 0 Vicryl suture using Afshin-Shireen device. This was done under laparoscopic guidance. All skin incisions were then closed with 4-0 Vicryl subcuticular suture. The patient was awakened and taken to postanesthesia care unit in stable condition.
[2024-07-01 14:02] VITALS: BP 130/85; PULSE 89
== END 2024-07-01 14:50 | disposition home or self-care (01) ==
LOC: OR 06:40
PROVIDERS: ATTEND Surgery
DX: K40.20 Bilateral inguinal hernia, without obstruction or gangrene, not specified as recurrent (principal); E78.5 Hyperlipidemia, unspecified; I11.0 Hypertensive heart disease with heart failure; I50.22 Chronic systolic (congestive) heart failure; M54.50 Low back pain, unspecified; K21.9 Gastro-esophageal reflux disease without esophagitis; I67.9 Cerebrovascular disease, unspecified; I48.91 Unspecified atrial fibrillation; R47.1 Dysarthria and anarthria; M19.90 Unspecified osteoarthritis, unspecified site; N28.9 Disorder of kidney and ureter, unspecified; Z87.891 Personal history of nicotine dependence; Z79.01 Long term (current) use of anticoagulants; Z79.899 Other long term (current) drug therapy
CPT/HCPCS: 80162; 85025; 49650; J2250; J1100; J0690; J2405; J1885; J1171; J0665; 64999

== ENCOUNTER 2024-07-01 20:43 | Emergency (ER) | payer MEDICARE ==
[2024-07-01 20:53] VITALS: RESP 18; TEMP 97.6
--- NOTE | 2024-07-01 22:31 | ED ---
Male Urogenital HPI - General Chief complaint: Urogenital Stated complaint: post-op issue, urogenital Time Seen by Provider: 07/01/24 20:57 Source: patient Mode of arrival: wheelchair Limitations: no limitations - History of Present Illness Initial comments: 79-year-old male presenting with chief complaint of inability to urinate. Patient had a hernia repair earlier today. He has not been able to urinate since he left the hospital. He is having some suprapubic pressure. No fevers. No nausea or vomiting. - Related Data Home Medications Medication Instructions Recorded Confirmed Apixaban [Eliquis] 5 mg PO BID 11/19/23 07/01/24 Loratadine [Claritin] 10 mg PO HS 11/19/23 07/01/24 Magnesium Oxide [Magox 400] 1,600 mg PO BID 11/19/23 07/01/24 Empagliflozin [Jardiance] 10 mg PO DAILY 03/26/24 07/01/24 Furosemide [Lasix] 40 mg PO DAILY 03/26/24 07/01/24 Metoprolol Tartrate [Lopressor] 50 mg PO BID 03/26/24 07/01/24 Multivitamins, Thera [Multivitamin 1 tab PO HS 03/26/24 07/01/24 (formulary)] allopurinoL [Zyloprim] 200 mg PO HS 03/26/24 07/01/24 Pantoprazole [Protonix] 40 mg PO DAILY 05/07/24 07/01/24 Tamsulosin [Flomax] 0.4 mg PO DAILY 05/07/24 07/01/24 Thiamine [Vitamin B-1] 100 mg PO HS 05/07/24 07/01/24 lisinopriL [Zestril] 10 mg PO DAILY 05/07/24 07/01/24 Potassium Chloride ER [K-Dur 10] 10 meq PO DAILY 06/26/24 07/01/24 Senna(Unk) 1 dose PO DAILY 06/26/24 07/01/24 Previous Rx's Medication Instructions Recorded Digoxin [Digitek] 125 mcg PO DAILY #30 tab 11/26/23 Diltiazem Cd [Cardizem CD] 240 mg PO DAILY #30 cap 11/26/23 Acetaminophen Tab [Tylenol] 650 mg PO Q6HR PRN tab 05/12/24 Atorvastatin [Lipitor] 40 mg PO HS tab 05/12/24 HYDROcodone/APAP 5-325MG [[place] 1 tab PO Q6HR PRN 3 Days #12 tab 07/01/24 5-325] Allergies Allergy/AdvReac Type Severity Reaction Status Date / Time No Known Allergies Allergy Verified 07/01/24 20:49 Review of Systems ROS Statement: Those systems with pertinent positive or pertinent negative responses have been documented in the HPI. ROS Other: All systems not noted in ROS Statement are negative. Past Medical History Past Medical History: Atrial Fibrillation, Cancer, Heart Failure, CVA/TIA, GERD/Reflux, Hyperlipidemia, Hypertension, Osteoarthritis (OA) Additional Past Medical History / Comment(s): diverticular disease, bleeding duodenal ulcer, gastritis, hemorrhoids, chronic low back pain, vertigo at times, skin cancer with removal, CHF, covid History of Any Multi-Drug Resistant Organisms: MRSA Date of last positivie culture/infection: 05/26/2024 MDRO Source:: buttocks Past Surgical History: Appendectomy, Hernia Repair, Joint Replacement, Orthopedic Surgery, Tonsillectomy Additional Past Surgical History / Comment(s): Total L/R knee arthroplasty, bilateral total hip arthroplasties, bilateral carpal tunnel releases, L foot bone removed/hardware since removed and had spacer placed, steroid back injections, colonoscopies, basal cell skin cancer removed. Past Anesthesia/Blood Transfusion Reactions: No Reported Reaction Additional Past Anesthesia/Blood Transfusion Reaction / Comment(s): . Past Psychological History: No Psychological Hx Reported Smoking Status: Never smoker Past Alcohol Use History: Occasional Past Drug Use History: None Reported - Past Family History Brother(s) Family Medical History: Cancer Mother Family Medical History: Cancer Additional Family Medical History / Comment(s): Mother lived to be 90yrs old. breast cancer Father Family Medical History: No Reported History Additional Family Medical History / Comment(s): Father lived to be in his early 80's. General Exam Limitations: no limitations General appearance: alert, in no apparent distress Head exam: Present: atraumatic, normocephalic, normal inspection Eye exam: Present: normal appearance, EOMI Neck exam: Present: normal inspection. Absent: meningismus Respiratory exam: Absent: respiratory distress Cardiovascular Exam: Present: regular rate GI/Abdominal exam: Present: soft. Absent: distended, tenderness, guarding, rebound, rigid Neurological exam: Present: alert, oriented X3 Psychiatric exam: Present: normal affect, normal mood Skin exam: Present: warm, dry Course Vital Signs 07/01/24 07/01/24 20:49 22:56 Temperature 97.6 F Pulse Rate 88 76 Respiratory 18 18 Rate Blood Pressure 151/86 142/74 O2 Sat by Pulse 99 100 Oximetry Medical Decision Making - Medical Decision Making Was pt. sent in by a medical professional or institution (, DAVIS, ADJUNCT PROFESSOR, urgent care, hospital, or alf...) When possible be specific @ -No Did you speak to anyone other than the patient for history (EMS, parent, family, police, friend...)? What history was obtained from this source @ -No Did you review nursing and triage notes (agree or disagree)? Why? @ -I reviewed and agree with nursing and triage notes Were old charts reviewed (outside hosp., previous admission, EMS record, old EKG, old radiological studies, urgent care reports/EKG's, alf records)? Report findings @ -No old charts were reviewed Differential Diagnosis (chest pain, altered mental status, abdominal pain women, abdominal pain men, vaginal bleeding, weakness, fever, dyspnea, syncope, headache, dizziness, GI bleed, back pain, seizure, CVA, palpatations, mental h ealth, musculoskeletal)? @ -Differential includes postop complication, obstruction, this is not an all- inclusive list EKG interpreted by me (3pts min.). @ -As above X-rays interpreted by me (1pt min.). @ -None done CT interpreted by me (1pt min.). @ -None done U/S interpreted by me (1pt. min.). @ -None done What testing was considered but not performed or refused? (CT, X-rays, U/S, labs)? Why? @ -None What meds were considered but not given or refused? Why? @ -None Did you discuss the management of the patient with other professionals (professionals i.e. DAVIS Clifton, ADJUNCT PROFESSOR, lab, RT, psych nurse, social work program coordinator, first aid teacher, teacher, water resources technical officer, immigration case manager)? Give summary @ -No Was smoking cessation discussed for >3mins.? @ -No Was critical care preformed (if so, how long)? @ -No Were there social determinants of health that impacted care today? How? (Homelessness, low income, unemployed, alcoholism, drug addiction, transportation, low edu. Level, literacy, decrease access to med. care, snf, rehab)? @ -No Was there de-escalation of care discussed even if they declined (Discuss DNR or withdrawal of care, Hospice)? DNR status @ -No What co-morbidities impacted this encounter? (DM, HTN, Smoking, COPD, CAD, Cancer, CVA, ARF, Chemo, Hep., AIDS, mental health diagnosis, sleep apnea, morbid obesity)? @ -None Was patient admitted / discharged? Hospital course, mention meds given and route, prescriptions, significant lab abnormalities, going to OR and other pertinent info. @ -79-year-old male presenting with chief complaint of inability to urinate. He had a hernia repair surgery earlier today and has not been able to urinate since he left the hospital. Patient is straight cathed and 350 mL are expressed from the bladder. Patient is then observed until he is able to urinate on his own. He is able to put out over 100 mL on his own. Discharged. Follow-up with PCP. Report back to ER with any new or worsening symptoms. Discussed return parameters and answered all questions. Patient conveyed verbal understanding and agreed to the plan. I discussed this case in detail with my attending Dr. Haas Undiagnosed new problem with uncertain prognosis? @ -No Drug Therapy requiring intensive monitoring for toxicity (Heparin, Nitro, Insulin, Cardizem)? @ -No Were any procedures done? @ -No Diagnosis/symptom? @ -Urinary retention Acute, or Chronic, or Acute on Chronic? @ -Acute Uncomplicated (without systemic symptoms) or Complicated (systemic symptoms)? @ -Uncomplicated Side effects of treatment? @ -No Exacerbation, Progression, or Severe Exacerbation? @ -No Poses a threat to life or bodily function? How? (Chest pain, [place], [place], pneumonia, PE, COPD, DKA, ARF, appy, cholecystitis, CVA, Diverticulitis, Homicidal, Suicidal, threat to staff... and all critical care pts) @ -Unlikely Disposition Clinical Impression: Urinary retention Disposition: HOME SELF-CARE Condition: Good Instructions (If sedation given, give patient instructions): Urinary Retention in Men (ED) Additional Instructions: Follow-up with PCP. Report back to ER with any new or worsening symptoms. Is patient prescribed a controlled substance at d/c from ED?: No Referrals: Chris Rice MD [Primary Care Provider] - 1-2 days Time of Disposition: 22:31
[2024-07-01 22:57] VITALS: BP 142/74; PULSE 76
== END 2024-07-01 22:57 | disposition home or self-care (01) ==
LOC: EC 20:43
DX: R33.9 Retention of urine, unspecified (principal)
CPT/HCPCS: 51702; 99283

== ENCOUNTER 2024-09-20 15:07 | Observation (INO) | payer MEDICARE ==
--- NOTE | 2024-09-20 15:39 | ED ---
Dizziness HPI - General Chief Complaint: Dizziness Stated Complaint: fell backwards/syncope Time Seen by Provider: 09/20/24 15:20 Source: patient, RN notes reviewed Mode of arrival: wheelchair Limitations: no limitations - History of Present Illness Initial Comments: This is an 79-year-old male who presents to the emergency department for dizziness. Patient was laying on the couch and when he went to stand up suddenly felt very dizzy and fell backwards onto his bottom. Denies hitting his head or any loss of consciousness. He is on Eliquis. States that he does still feel a little bit dizzy, but not like he did. Denies any chest pain or shortnes s of breath when this occurred. States that he has had things like this happen in the past, but nothing recently. Patient's heart rate noted to be in the 50s on arrival. States that it is usually in the 80s. MD Complaint: dizziness - Related Data Home Medications Medication Instructions Recorded Confirmed Apixaban [Eliquis] 5 mg PO BID 11/19/23 09/20/24 Loratadine [Claritin] 10 mg PO HS 11/19/23 09/20/24 Magnesium Oxide [Magox 400] 800 mg PO BID 11/19/23 09/20/24 Empagliflozin [Jardiance] 10 mg PO DAILY 03/26/24 09/20/24 Furosemide [Lasix] 40 mg PO DAILY 03/26/24 09/20/24 Metoprolol Tartrate [Lopressor] 50 mg PO BID 03/26/24 09/20/24 Tamsulosin [Flomax] 0.4 mg PO DAILY 05/07/24 09/20/24 lisinopriL [Zestril] 10 mg PO DAILY 05/07/24 09/20/24 HYDROcodone/APAP 10-325MG [[place] 1 tab PO BID PRN 09/20/24 09/20/24 10-325] HYDROcodone/APAP 10-325MG [[place] 1 tab PO DAILY 09/20/24 09/20/24 10-325] Pantoprazole Sodium [Protonix] 20 mg PO DAILY 09/20/24 09/20/24 Sennosides [Senokot] 8.6 mg PO BID 09/20/24 09/20/24 allopurinoL 200 mg PO HS 09/20/24 09/20/24 Previous Rx's Medication Instructions Recorded Digoxin [Digitek] 125 mcg PO DAILY #30 tab 11/26/23 Diltiazem Cd [Cardizem CD] 240 mg PO DAILY #30 cap 11/26/23 Atorvastatin [Lipitor] 40 mg PO HS tab 05/12/24 Allergies Allergy/AdvReac Type Severity Reaction Status Date / Time No Known Allergies Allergy Verified 09/20/24 17:47 Review of Systems ROS Statement: Those systems with pertinent positive or pertinent negative responses have been documented in the HPI. ROS Other: All systems not noted in ROS Statement are negative. Past Medical History Past Medical History: Atrial Fibrillation, Cancer, Heart Failure, CVA/TIA, GERD/Reflux, Hyperlipidemia, Hypertension, Osteoarthritis (OA) Additional Past Medical History / Comment(s): diverticular disease, bleeding duodenal ulcer, gastritis, hemorrhoids, chronic low back pain, vertigo at times, skin cancer with removal, CHF, covid History of Any Multi-Drug Resistant Organisms: MRSA Date of last positivie culture/infection: 05/26/2024 MDRO Source:: buttocks Past Surgical History: Appendectomy, Hernia Repair, Joint Replacement, Orthopedic Surgery, Tonsillectomy Additional Past Surgical History / Comment(s): Total L/R knee arthroplasty, bilateral total hip arthroplasties, bilateral carpal tunnel releases, L foot bone removed/hardware since removed and had spacer placed, steroid back injections, colonoscopies, basal cell skin cancer removed. Past Anesthesia/Blood Transfusion Reactions: No Reported Reaction Additional Past Anesthesia/Blood Transfusion Reaction / Comment(s): . Past Psychological History: No Psychological Hx Reported Smoking Status: Never smoker Past Alcohol Use History: Occasional Past Drug Use History: None Reported - Past Family History Brother(s) Family Medical History: Cancer Mother Family Medical History: Cancer Additional Family Medical History / Comment(s): Mother lived to be 90yrs old. breast cancer Father Family Medical History: No Reported History Additional Family Medical History / Comment(s): Father lived to be in his early 80's. General Exam Limitations: no limitations General appearance: alert, in no apparent distress Head exam: Present: atraumatic, normocephalic, normal inspection Eye exam: Present: normal appearance, PERRL, EOMI. Absent: scleral icterus, conjunctival injection, periorbital swelling Respiratory exam: Present: normal lung sounds bilaterally. Absent: respiratory distress, wheezes, rales, rhonchi, stridor Cardiovascular Exam: Present: bradycardia, irregular rhythm GI/Abdominal exam: Present: soft, normal bowel sounds. Absent: distended, tenderness, guarding, rebound, rigid Neurological exam: Present: alert, oriented X3, CN II-XII intact Psychiatric exam: Present: normal affect, normal mood Skin exam: Present: warm, dry, intact, normal color. Absent: rash Course Vital Signs 09/20/24 09/20/24 09/20/24 15:09 17:05 17:07 Temperature 98.1 F Pulse Rate 58 L 60 65 Respiratory 20 18 18 Rate Blood Pressure 118/63 113/71 112/72 O2 Sat by Pulse 97 98 97 Oximetry 09/20/24 09/20/24 17:10 18:05 Temperature Pulse Rate 69 68 Respiratory 18 18 Rate Blood Pressure 112/82 113/68 O2 Sat by Pulse 98 97 Oximetry Medical Decision Making - Medical Decision Making This is an 79-year-old male who presents to the emergency department for dizziness. Was pt. sent in by a medical professional or institution? @ -No Did you speak to anyone other than the patient for history? @ -No Did you review nursing and triage notes? @ -Yes, and I agree, it is accurate with regards to the patient's symptoms. Were old charts reviewed? @ -No Differential Diagnosis? @ -Differential Dizziness: Benign paroxysmal positional Vertigo, Meniere's disease, otitis media, acoustic neuroma, vertebrobasilar insufficiency, cerebellar stroke, encephalitis, hypovolemic, arrhythmia, coronary artery syndrome, anemia, this is not meant to be an all-inclusive list EKG interpreted by me (3pts min.)? @ -EKG interpreted by me demonstrating the following: A-fib with slow ventricular response. Ventricular rate 55 bpm, QRS duration 109 ms, QTc 397 ms. X-rays interpreted by me (1pt min.)? @ -Chest x-ray obtained. My interpretation identifies a questionable retrocardiac infiltrate. CT interpreted by me (1pt min.)? @ -Not obtained U/S interpreted by me (1pt. min.)? @ -Not obtained What testing was considered but not performed? (CT, X-rays, U/S, labs)? Why? @ -None What meds were considered but not given? Why? @ -None Did you discuss the management of the patient with other professionals? @ -Yes, Dr. Caal, who accepts the patient for admission. Did you reconcile home meds? @ -Yes Was smoking cessation discussed for >3mins.? @ -No Was critical care preformed (if so, how long)? @ -No Were there social determinants of health that impacted care today? How? (Homelessness, low income, unemployed, alcoholism, drug addiction, transportation, low edu. Level, literacy, decrease access to med. care, prison, rehab)? @ -No Was there de-escalation of care discussed even if they declined? (Discuss DNR or withdrawal of care, Hospice)? @ -No What co-morbidities impacted this encounter? (DM, HTN, Smoking, COPD, CAD, Cancer, CVA, Hep., AIDS, mental health diagnosis, sleep apnea, morbid obesity)? @ -A-fib, HTN Was patient admitted / discharged? @ -Admitted. Lab work unremarkable. Chest x-ray demonstrates a questionable retrocardiac opacity that could reflect atelectasis and/or pneumonia. However, patient has no respiratory symptoms to suggest pneumonia. Orthostatics found to be negative. Patient was watched on the automation and controls manager and his heart rate was typically in the mid 50s and he occasionally went down to the mid 40s. Patient usually has a heart rate ranging between 80 and 100. Patient subsequently admitted to medicine for symptomatic bradycardia with cardiology on consult. Case discussed with ED attending Dr. Painter. Undiagnosed new problem with uncertain prognosis? @ -None Drug Therapy requiring intensive monitoring for toxicity (Heparin, Nitro, Insulin, Cardizem)? @ -None Were any procedures done? @ -None Diagnosis/symptom? @ -Symptomatic bradycardia Acute, or Chronic, or Acute on Chronic? @ -Acute Uncomplicated (without systemic symptoms) or Complicated (systemic symptoms)? @ -Complicated Side effects of treatment? @ -None Exacerbation, Progression, or Severe Exacerbation] @ -Not applicable Poses a threat to life or bodily function? @ -Yes, can lead to life-threatening arrhythmias - Lab Data Result diagrams: 09/20/24 15:54 09/20/24 15:54 Lab Results 09/20/24 09/20/24 09/20/24 Range/Units 15:54 15:54 15:54 WBC 7.0 (3.8-10.6) k/uL RBC 4.00 L (4.30-5.90) m/uL Hgb 12.8 L (13.0-17.5) gm/dL Hct 38.6 L (39.0-53.0) % MCV 96.6 (80.0-100.0) fL MCH 31.9 (25.0-35.0) pg MCHC 33.1 (31.0-37.0) g/dL RDW 15.0 (11.5-15.5) % Plt Count 247 (150-450) k/uL MPV 7.5 Neutrophils % 67 % Lymphocytes % 22 % Monocytes % 7 % Eosinophils % 1 % Basophils % 1 % Neutrophils # 4.7 (1.3-7.7) k/uL Lymphocytes # 1.6 (1.0-4.8) k/uL Monocytes # 0.5 (0-1.0) k/uL Eosinophils # 0.1 (0-0.7) k/uL Basophils # 0.0 (0-0.2) k/uL PT 13.9 H (10.0-12.5) sec INR 1.3 H (<1.2) Sodium 133 L (137-145) mmol/L Potassium 4.0 (3.5-5.1) mmol/L Chloride 101 (98-107) mmol/L Carbon Dioxide 23 (22-30) mmol/L Anion Gap 9 mmol/L BUN 19 (9-20) mg/dL Creatinine 0.84 (0.66-1.25) mg/dL Est GFR (CKD-EPI)AfAm >90 (>60 ml/min/1.73 sqM) Est GFR (CKD-EPI)NonAf 83 (>60 ml/min/1.73 sqM) Glucose 121 H (74-99) mg/dL Calcium 9.4 (8.4-10.2) mg/dL Magnesium 2.0 (1.6-2.3) mg/dL Total Bilirubin 0.4 (0.2-1.3) mg/dL AST 19 (17-59) U/L ALT 16 (4-49) U/L Alkaline Phosphatase 96 (38-126) U/L Troponin I (0.000-0.034) ng/mL Total Protein 6.2 L (6.3-8.2) g/dL Albumin 3.7 (3.5-5.0) g/dL Urine Color Urine Appearance (Clear) Urine pH (5.0-8.0) Ur Specific [place] (1.001-1.035) Urine Protein (Negative) Urine Glucose (UA) (Negative) Urine Ketones (Negative) Urine Blood (Negative) Urine Nitrite (Negative) Urine Bilirubin (Negative) Urine Urobilinogen (<2.0) mg/dL Ur Leukocyte Esterase (Negative) 09/20/24 09/20/24 Range/Units 15:54 17:26 WBC (3.8-10.6) k/uL RBC (4.30-5.90) m/uL Hgb (13.0-17.5) gm/dL Hct (39.0-53.0) % MCV (80.0-100.0) fL MCH (25.0-35.0) pg MCHC (31.0-37.0) g/dL RDW (11.5-15.5) % Plt Count (150-450) k/uL MPV Neutrophils % % Lymphocytes % % Monocytes % % Eosinophils % % Basophils % % Neutrophils # (1.3-7.7) k/uL Lymphocytes # (1.0-4.8) k/uL Monocytes # (0-1.0) k/uL Eosinophils # (0-0.7) k/uL Basophils # (0-0.2) k/uL PT (10.0-12.5) sec INR (<1.2) Sodium (137-145) mmol/L Potassium (3.5-5.1) mmol/L Chloride (98-107) mmol/L Carbon Dioxide (22-30) mmol/L Anion Gap mmol/L BUN (9-20) mg/dL Creatinine (0.66-1.25) mg/dL Est GFR (CKD-EPI)AfAm (>60 ml/min/1.73 sqM) Est GFR (CKD-EPI)NonAf (>60 ml/min/1.73 sqM) Glucose (74-99) mg/dL Calcium (8.4-10.2) mg/dL Magnesium (1.6-2.3) mg/dL Total Bilirubin (0.2-1.3) mg/dL AST (17-59) U/L ALT (4-49) U/L Alkaline Phosphatase (38-126) U/L Troponin I <0.012 (0.000-0.034) ng/mL Total Protein (6.3-8.2) g/dL Albumin (3.5-5.0) g/dL Urine Color Colorless Urine Appearance Clear (Clear) Urine pH 5.5 (5.0-8.0) Ur Specific [place] 1.019 (1.001-1.035) Urine Protein Negative (Negative) Urine Glucose (UA) 4+ H (Negative) Urine Ketones Negative (Negative) Urine Blood Negative (Negative) Urine Nitrite Negative (Negative) Urine Bilirubin Negative (Negative) Urine Urobilinogen <2.0 (<2.0) mg/dL Ur Leukocyte Esterase Negative (Negative) - Radiology Data Radiology results: report reviewed, image reviewed Disposition Clinical Impression: Symptomatic bradycardia, Near syncope Disposition: ADMITTED IP TO THIS [facility] Condition: Fair
[2024-09-20 16:09] LABS: Basophils % (A) 1 %; Eosinophils # (A) 0.1 k/uL (0-0.7); Eosinophils % (A) 1 %; HCT 38.6 % (39.0-53.0); HGB 12.8 gm/dL (13.0-17.5); Lymphocytes # (A) 1.6 k/uL (1.0-4.8); Lymphocytes % (A) 22 %; MCH 31.9 pg (25.0-35.0); MCHC 33.1 g/dL (31.0-37.0); MCV 96.6 fL (80.0-100.0); Mean Platelet Volume 7.5; Monocytes # (A) 0.5 k/uL (0-1.0); Monocytes % (A) 7 %; Neutrophils # (A) 4.7 k/uL (1.3-7.7); Neutrophils % (A) 67 %; Platelet Count 247 k/uL (150-450)
[2024-09-20 16:19] LABS: INR 1.3 (<1.2); Prothrombin Time 13.9 sec (10.0-12.5)
[2024-09-20 16:23] LABS: ALT 16 U/L (4-49); AST 19 U/L (17-59); African American GFR (CKD) >90 (>60 ml/min/1.73 sqM); Albumin 3.7 g/dL (3.5-5.0); Alkaline Phosphatase 96 U/L (38-126); Anion Gap 9 mmol/L; Blood Urea Nitrogen 19 mg/dL (9-20); Calcium 9.4 mg/dL (8.4-10.2); Carbon Dioxide 23 mmol/L (22-30); Chloride 101 mmol/L (98-107); Glucose 121 mg/dL (74-99); Non-African American GFR(CKD) 83 (>60 ml/min/1.73 sqM); Sodium 133 mmol/L (137-145); Total Bilirubin 0.4 mg/dL (0.2-1.3); Total Protein 6.2 g/dL (6.3-8.2)
--- NOTE | 2024-09-20 16:38 | XR ---
EXAMINATION TYPE: XR chest 2V DATE OF EXAM: 09/20/2024 4:25 PM COMPARISON: Previous chest radiograph 03/29/2024. CLINICAL INDICATION: Male, 79 years old with history of Dizziness; [facility] TECHNIQUE: XR chest 2V Frontal and lateral views of the chest. FINDINGS: Lungs/Pleura: No pleural effusion or pneumothorax. Apparent infiltrative opacity in the retrocardiac region on lateral view not well seen on AP view. Pulmonary vascularity: Unremarkable. Heart/mediastinum: Mild cardiomegaly. Musculoskeletal: No acute osseous pathology. Other findings: None IMPRESSION: Questionable retrocardiac opacity could reflect atelectasis and/or pneumonia. [facility], , 09/20/2024 4:36 PM
[2024-09-20] MEDS: SODIUM CHLORIDE 0.9% 500 ML 500 ML IV STA (16:57)
[2024-09-20 17:34] LABS: Appearance,Urine Clear (Clear); Bilirubin,Urine Negative (Negative); Blood,Urine Negative (Negative); Color,Urine Colorless; Glucose,Urine (UA) 4+ (Negative); Ketones,Urine Negative (Negative); Leukocyte Esterase,Urine Negative (Negative); Nitrite,Urine Negative (Negative); PH, Urine 5.5 (5.0-8.0); Protein,Urine Negative (Negative); Specific Gravity,Urine 1.019 (1.001-1.035); Urobilinogen,Urine <2.0 mg/dL (<2.0)
[2024-09-20] MEDS ORDERED: ONDANSETRON 4 MG/2 ML VIAL IVP PRN (17:36)
[2024-09-20] MEDS ORDERED: MORPHINE SULFATE 4 MG/ML SYRINGE IV PRN (17:36)
[2024-09-20] MEDS ORDERED: NALOXONE 0.4 MG/ML 1 ML VIAL IV PRN (17:36)
[2024-09-20] MEDS ORDERED: HYDROcodone/APAP 5-325MG 1 EACH TAB PO PRN (17:36)
[2024-09-20] MEDS ORDERED: HYDROcodone/APAP 10-325MG 1 EACH TAB PO PRN (17:58)
[2024-09-20] MEDS: MAGNESIUM OXIDE 400 MG TAB PO SCH (20:48)
[2024-09-20] MEDS: allopurinoL 100 MG TAB PO SCH (20:49)
[2024-09-20] MEDS: APIXABAN 5 MG TAB PO SCH (20:49)
[2024-09-20] MEDS: LORATADINE 10 MG TAB PO SCH (20:49)
[2024-09-20] MEDS: SENNOSIDES 8.6 MG TAB PO SCH (20:49)
[2024-09-20] MEDS: METOPROLOL TARTRATE 50 MG TAB PO SCH (20:49)
[2024-09-20] MEDS: ATORVASTATIN 40 MG TAB PO SCH (20:49)
[2024-09-20] MEDS: SODIUM CHLORIDE 0.9% 1,000 ML IV STA (21:31)
[2024-09-20] MEDS: ACETAMINOPHEN TAB 325 MG TAB PO PRN (23:46)
[2024-09-21] MEDS: DAPAGLIFLOZIN PROPANEDIOL 5 MG TABLET PO SCH (08:01)
[2024-09-21] MEDS: HYDROcodone/APAP 10-325MG 1 EACH TAB PO SCH (08:02)
[2024-09-21] MEDS: PANTOPRAZOLE 40 MG/10 ML VIAL IV SCH (08:03)
[2024-09-21] MEDS: TAMSULOSIN 0.4 MG CAP.ER.24H PO SCH (08:03)
[2024-09-21] MEDS: lisinopriL 10 MG TAB PO SCH (08:03)
[2024-09-21] MEDS: FUROSEMIDE 40 MG TAB PO SCH (08:03)
[2024-09-21] MEDS ORDERED: NON FORMULARY DRUG (Pantoprazole Sodium [Protonix] 20 MG Tablet) PO SCH (09:00)
[2024-09-21] MEDS: DILTIAZEM CD 240 MG CAP.ER.24H PO SCH (10:46)
[2024-09-21] MEDS: DIGOXIN 62.5 MCG TAB PO SCH (10:46)
--- NOTE | 2024-09-21 13:33 | US ---
EXAMINATION TYPE: US carotid duplex BILAT DATE OF EXAM: 09/21/2024 COMPARISON: 03/27/24 CLINICAL INDICATION: Male, 79 years old with history of presyncope, symptomatic bradycardia; syncope Additional History: R55 Syncope TECHNIQUE: Grayscale, color Doppler and spectral Doppler evaluation of the bilateral carotid systems and vertebral arteries. Indirect Doppler criteria was utilized. FINDINGS: EXAM MEASUREMENTS: RIGHT: Peak Systolic Velocity (PSV) cm/sec ----- Right CCA: 80.1 ----- Right ICA: 136.6 ----- Right ECA: 131.3 ICA/CCA ratio: 1.7 RIGHT: End Diastole cm/sec ----- Right CCA: 8.7 ----- Right ICA: 17.1 ----- Right ECA: 3.2 LEFT: Peak Systolic Velocity (PSV) cm/sec ----- Left CCA: 61.6 ----- Left ICA: 84.2 ----- Left ECA: 122.4 ICA/CCA ratio: 1.4 LEFT: End Diastole cm/sec ----- Left CCA: 8.4 ----- Left ICA: 17.1 ----- Left ECA: 2.1 VERTEBRALS (direction of flow): Right Vertebral: Antegrade Left Vertebral: Antegrade Rhythm: Arrhythmia FLEET OPERATIONS MANAGER NOTES: plaque seen in bilateral bulbs and prox ICA's Color Doppler imaging shows patency with blood flow throughout the carotid artery. Spectral waveforms are within normal limits. 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 Left: Less than 50% stenosis of the carotid bifurcation. Criteria for Assigning % of Stenosis / Diameter reduction (Estimation based on the indirect measurements of the internal carotid artery velocities (ICA PSV). 1. Normal (no stenosis)=ICA PSV < 125 cm/s: ratio < 2.0: ICA EDV<40 cm/s. 2. Less than 50% stenosis=ICA PSV < 125 cm/s: ratio < 2.0: ICA EDV<40 cm/s. 3. 50 to 69% stenosis=ICA PSV of 125 to 230 cm/s: ration 2.0 ? 4.0: ICA EDV 40-100 cm/s. 4. Greater than 70% stenosis to near occlusion= ICA PSV > 230 cm/s: ratio > 4.0: ICA EDV > 100 cm/s. 5. Near occlusion= ICA PSV velocities may be low or undetectable: variable ratio and ICA EDV. 6. Total occlusion=unable to detect flow. [facility], , 09/21/2024 1:31 PM
--- NOTE | 2024-09-21 13:35 | P.CRDCN ---
History of Present Illness Consult date: 09/21/24 Reason for Consult (text): Bradycardia History of present illness: This is an 79-year-old male patient of Dr. Jessika Ashford with past medical history of permanent atrial fibrillation, hypertension, dyslipidemia. We have been asked to evaluate the patient for symptomatic bradycardia. Patient presented to the hospital due to dizziness. He states he was trying to get up off the couch and became dizzy and ended up falling backwards back onto the couch. He denies any loss of consciousness. He denies any chest pain. No shortness of breath. Blood pressure 142/73, heart rate 66, pulse ox 97% on room air. -EKG: Atrial fibrillation at 55 bpm. -Chest x-ray: Questionable retrocardiac opacity could reflect atelectasis and/or pneumonia. -Laboratory studies: WBC 7, hemoglobin 12.8, INR 1.3. Sodium 133, potassium 4, BUN 19 creatinine 0.84. Troponin negative x 2. TSH 0.494. -Home cardiac medications: Eliquis 5 mg twice daily, Lipitor 40 mg at bedtime, digoxin 125 mcg daily, Cardizem CD 240 mg daily, Jardiance 10 mg daily, Lasix 40 mg daily, lisinopril 10 mg daily, metoprolol tartrate 50 mg twice daily. -Echocardiogram performed on 03/27/2024 reveals EF of 55 to 60%, A-fib with RVR, mild aortic stenosis with peak gradient 30 mmHg. -Event monitor performed 03/01/2023 - 03/02/2023: Revealed atrial fibrillation or flutter with average heart rate of 68 bpm and as low as 37 bpm, maximum heart rate 125. Atrial fibrillation or flutter burden was 100%. PVC burden was 0.03%. Pause 8 events with longest pause 2067 MS. Review Of Systems: At the time of my exam: CONSTITUTIONAL: Denies fever or chills. HEENT: Denies blurred vision, vision changes, or eye pain. Denies hemoptysis CARDIOVASCULAR: Denies chest pain. Denies orthopnea. Denies PND. Denies palpitations RESPIRATORY: Denies shortness of breath. GASTROINTESTINAL: Denies abdominal pain. Denies nausea or vomiting. HEMATOLOGIC: Denies bleeding disorders. GENITOURINARY: Denies any blood in urine. SKIN: Denies puritis. Denies rash. Physical examination: Gen: This is an 79-year-old male in no acute distress VS: reviewed HEENT: Head is atraumatic, normocephalic. Pupils equal, round. Sclerae is anicteric. NECK: Supple. No JVD. LUNGS: Clear to auscultation. No wheezes or rhonchi. No intercostal retractions. HEART: Irregular rate and rhythm. Soft systolic ejection murmur. ABDOMEN: Soft No tenderness. EXTREMITIES: No pedal edema. No calf tenderness. NEUROLOGICAL: Patient is awake, alert and oriented x3. Assessment: Dizziness Bradycardia Permanent atrial fibrillation Hypertension Dyslipidemia Plan: Resume patient's home cardiac medications with the following changes: Discontinue digoxin Discontinue Cardizem Continue metoprolol 50 mg twice daily, resume Saturday Continue telemetry monitoring Further recommendations to follow based upon clinical course Thank you kindly for this consultation. Nurse practitioner note has been reviewed, I agree with documented findings and plan of care. Patient was seen and examined. Past Medical History Past Medical History: Atrial Fibrillation, Cancer, Heart Failure, CVA/TIA, GERD/Reflux, Hyperlipidemia, Hypertension, Osteoarthritis (OA) Additional Past Medical History / Comment(s): diverticular disease, bleeding duodenal ulcer, gastritis, hemorrhoids, chronic low back pain, vertigo at times, skin cancer with removal, CHF, covid History of Any Multi-Drug Resistant Organisms: MRSA Date of last positivie culture/infection: 05/26/2024 MDRO Source:: buttocks Past Surgical History: Appendectomy, Hernia Repair, Joint Replacement, Orthopedic Surgery, Tonsillectomy Additional Past Surgical History / Comment(s): Total L/R knee arthroplasty, bilateral total hip arthroplasties, bilateral carpal tunnel releases, L foot bone removed/hardware since removed and had spacer placed, steroid back injections, colonoscopies, basal cell skin cancer removed. Past Anesthesia/Blood Transfusion Reactions: No Reported Reaction Additional Past Anesthesia/Blood Transfusion Reaction / Comment(s): . Past Psychological History: No Psychological Hx Reported Smoking Status: Never smoker Past Alcohol Use History: Occasional Past Drug Use History: None Reported - Past Family History Brother(s) Family Medical History: Cancer Mother Family Medical History: Cancer Additional Family Medical History / Comment(s): Mother lived to be 90yrs old. breast cancer Father Family Medical History: No Reported History Additional Family Medical History / Comment(s): Father lived to be in his early 80's. Medications and Allergies Home Medications Medication Instructions Recorded Confirmed Type Apixaban [Eliquis] 5 mg PO BID 11/19/23 09/20/24 History Loratadine [Claritin] 10 mg PO HS 11/19/23 09/20/24 History Magnesium Oxide [Magox 400] 800 mg PO BID 11/19/23 09/20/24 History Digoxin [Digitek] 125 mcg PO DAILY #30 tab 11/26/23 09/20/24 Rx Diltiazem Cd [Cardizem CD] 240 mg PO DAILY #30 cap 11/26/23 09/20/24 Rx Empagliflozin [Jardiance] 10 mg PO DAILY 03/26/24 09/20/24 History Furosemide [Lasix] 40 mg PO DAILY 03/26/24 09/20/24 History Metoprolol Tartrate [Lopressor] 50 mg PO BID 03/26/24 09/20/24 History Tamsulosin [Flomax] 0.4 mg PO DAILY 05/07/24 09/20/24 History lisinopriL [Zestril] 10 mg PO DAILY 05/07/24 09/20/24 History Atorvastatin [Lipitor] 40 mg PO HS tab 05/12/24 09/20/24 Rx HYDROcodone/APAP 10-325MG [[place] 1 tab PO BID PRN 09/20/24 09/20/24 History 10-325] HYDROcodone/APAP 10-325MG [[place] 1 tab PO DAILY 09/20/24 09/20/24 History 10-325] Pantoprazole Sodium [Protonix] 20 mg PO DAILY 09/20/24 09/20/24 History Sennosides [Senokot] 8.6 mg PO BID 09/20/24 09/20/24 History allopurinoL 200 mg PO HS 09/20/24 09/20/24 History Allergies Allergy/AdvReac Type Severity Reaction Status Date / Time No Known Allergies Allergy Verified 09/20/24 17:47 Physical Exam Vitals: Vital Signs Temp Pulse Pulse Resp BP BP Pulse Ox 09/21/24 07:58 66 16 142/73 09/21/24 03:22 98.4 F 78 17 126/84 97 09/20/24 23:25 98.2 F 68 17 115/69 95 01/26/25 19:50 98.5 F 97 16 129/76 99 09/20/24 18:05 68 18 113/68 97 09/20/24 17:10 69 18 112/82 98 09/20/24 17:07 65 18 112/72 97 09/20/24 17:05 60 18 113/71 98 09/20/24 15:09 98.1 F 58 L 20 118/63 97 Intake and Output 09/20/24 09/21/24 09/21/24 22:59 06:59 14:59 Intake Total 370 10 Balance 370 10 Intake: IV 10 10 Invasive Line 1 10 10 Oral 360 Other: Voiding Method Toilet Toilet # Voids 2 1 Weight 83.915 kg 83.8 kg Results 09/20/24 15:54 09/20/24 15:54 Cardiac Enzymes 09/20/24 09/20/24 Range/Units 15:54 15:54 AST 19 (17-59) U/L Troponin I <0.012 (0.000-0.034) ng/mL Coagulation 09/20/24 Range/Units 15:54 PT 13.9 H (10.0-12.5) sec CBC 09/20/24 Range/Units 15:54 WBC 7.0 (3.8-10.6) k/uL RBC 4.00 L (4.30-5.90) m/uL Hgb 12.8 L (13.0-17.5) gm/dL Hct 38.6 L (39.0-53.0) % Plt Count 247 (150-450) k/uL Comprehensive Metabolic Panel 09/20/24 Range/Units 15:54 Sodium 133 L (137-145) mmol/L Potassium 4.0 (3.5-5.1) mmol/L Chloride 101 (98-107) mmol/L Carbon Dioxide 23 (22-30) mmol/L BUN 19 (9-20) mg/dL Creatinine 0.84 (0.66-1.25) mg/dL Glucose 121 H (74-99) mg/dL Calcium 9.4 (8.4-10.2) mg/dL AST 19 (17-59) U/L ALT 16 (4-49) U/L Alkaline Phosphatase 96 (38-126) U/L Total Protein 6.2 L (6.3-8.2) g/dL Albumin 3.7 (3.5-5.0) g/dL Current Medications Generic Name Dose Route Start Last Admin Trade Name Freq PRN Reason Stop Dose Admin Acetaminophen 650 mg 09/20/24 17:36 09/20/24 23:46 Acetaminophen Tab 325 Mg Tab PO 650 mg Q6HR PRN Administration Mild Pain or Fever > 100.5 Hydrocodone Bitart/Acetaminophen 1 each 09/20/24 17:36 Hydrocodone/Apap 5-325mg 1 Each Tab PO Q4HR PRN Moderate Pain (Scale 4 to 6) Hydrocodone Bitart/Acetaminophen 1 each 09/20/24 17:58 Hydrocodone/Apap 10-325mg 1 Each Tab PO BID PRN Severe Pain (Scale 7 to 10) Hydrocodone Bitart/Acetaminophen 1 each 09/21/24 09:00 09/21/24 08:02 Hydrocodone/Apap 10-325mg 1 Each Tab PO 1 each DAILY CELESTINA Administration Allopurinol 200 mg 09/20/24 21:00 09/20/24 20:49 Allopurinol 100 Mg Tab PO 200 mg HS CELESTINA Administration Apixaban 5 mg 09/20/24 21:00 09/21/24 08:03 Apixaban 5 Mg Tab PO 5 mg BID CELESTINA Administration Protocol Atorvastatin Calcium 40 mg 09/20/24 21:00 09/20/24 20:49 Atorvastatin 40 Mg Tab PO 40 mg HS CELESTINA Administration Dapagliflozin 5 mg 09/21/24 09:00 09/21/24 08:01 Dapagliflozin Propanediol 5 Mg Tablet PO 5 mg DAILY CELESTINA Administration Furosemide 40 mg 09/21/24 09:00 09/21/24 08:03 Furosemide 40 Mg Tab PO 40 mg DAILY CELESTINA Administration Lisinopril 10 mg 09/21/24 09:00 09/21/24 08:03 Lisinopril 10 Mg Tab PO 10 mg DAILY CELESTINA Administration Loratadine 10 mg 09/20/24 21:00 09/20/24 20:49 Loratadine 10 Mg Tab PO 10 mg HS CELESTINA Administration Magnesium Oxide 800 mg 09/20/24 21:00 09/21/24 08:03 Magnesium Oxide 400 Mg Tab PO 800 mg BID CELESTINA Administration Metoprolol Tartrate 50 mg 09/20/24 21:00 09/20/24 20:49 Metoprolol Tartrate 50 Mg Tab PO 50 mg BID CELESTINA Administration Morphine Sulfate 4 mg 09/20/24 17:36 Morphine Sulfate 4 Mg/Ml Syringe IV Q4HR PRN Pain Scale 7-10 PO Intolerant Naloxone HCl 0.2 mg 09/20/24 17:36 Naloxone 0.4 Mg/Ml 1 Ml Vial IV Q2M PRN Opioid Reversal Ondansetron HCl 4 mg 09/20/24 17:36 Ondansetron 4 Mg/2 Ml Vial IVP Q8HR PRN Nausea And Vomiting Pantoprazole Sodium 40 mg 09/22/24 07:30 Pantoprazole 40 Mg Tablet PO [facility] Senna 8.6 mg 09/20/24 21:00 09/21/24 08:01 Sennosides 8.6 Mg Tab PO 8.6 mg BID CELESTINA Administration Tamsulosin HCl 0.4 mg 09/21/24 09:00 09/21/24 08:03 Tamsulosin 0.4 Mg Cap.Er.24h PO 0.4 mg DAILY CELESTINA Administration Intake and Output 09/20/24 09/21/24 09/21/24 22:59 06:59 14:59 Intake Total 370 10 Balance 370 10 Intake: IV 10 10 Invasive Line 1 10 10 Oral 360 Other: Voiding Method Toilet Toilet # Voids 2 1 Weight 83.915 kg 83.8 kg 09/20/24 15:54 09/20/24 15:54
--- NOTE | 2024-09-21 14:01 | P.HPIM ---
History of Present Illness H&P Date: 09/21/24 Chief Complaint: Dizziness Patient is a 79-year-old male with GERD, hyperlipidemia, hypertension, osteoarthritis, atrial fibrillation on apixaban 5 mg twice daily, mixed systolic and diastolic congestive heart failure, chronic kidney disease presented to the emergency department with dizziness. Patient was seen at bedside today. He reports that yesterday he felt lightheaded and dizzy when he was trying to stand up from his couch that he fell backward into the couch. Few minutes later, he was having another episode where he felt lightheaded and dizzy. He has not fal safia before in the past but has never felt anything like this before. Patient denied any chest pain, shortness of breath, nausea, vomiting, diaphoresis prior to the fall. He denied passing out or losing consciousness during the episode. The dizziness lasted for few minutes and then went away. He does not report a room spinning sensation but more of a lightheaded sensation. Patient denies other acute complaints at this time. He denies diarrhea, constipation, hematochezia, melena, tingling or numbness sensation upper or lower extremity. ED documentation reviewed. In the ED patient was treated with 1.5 L bolus of normal saline Vitals on admission temperature 98.4, pulse rate 66, respiratory rate 16, blood pressure 142/73, O2 sat 97% on room air EKG independently interpreted as atrial fibrillation with slow ventricular response with a ventricular rate of 55 bpm, QTc interval 397 ms CXR shows questionable retrocardiac opacity could reflect atelectasis and/or pneumonia Labs on admission show WBC 7.0, hemoglobin 12.6, hematocrit 38.6, platelets 247, PT 13.9, INR 1.3, sodium 133, potassium 4.0, chloride 101, carbon dioxide 23, BUN 19, creatinine 0.84, glucose 121, troponin less than 0.012, digoxin 0.4 UA shows negative for nitrites and leukocyte esterase Review of systems: Pertinent positives and negatives as discussed in HPI, a complete review of systems was performed and all other systems are negative. PMH: GERD, hyperlipidemia, hypertension, osteoarthritis, atrial fibrillation on apixaban 5 mg twice daily, mixed systolic and diastolic congestive heart failure, chronic kidney disease PSH:, Hernia repair, joint replacement, orthopedic surgery, tonsillectomy, total left/R knee arthroplasty, bilateral total hip arthroplasties FMH: Mother has a history of breast cancer Allergies: No known drug allergies Social history: Tobacco: Never smoker Alcohol: Occasional Recreational drugs: No drug use Travel: No travel history Sick contacts: No sick contact Physical examination: Vital signs reviewed General: nontoxic, no distress, appears at stated age Derm: warm, dry, intact Head: atraumatic, normocephalic, symmetric Eyes: EOMI, anicteric sclera Mouth: no lip lesion, mucus membranes moist Cardiovascular: S1 S2 reg, no murmur Lungs: CTA bilateral, no rhonchi, no rales, no accessory muscle use Abdominal: soft, non-tender to palpation Extremities: No cyanosis, clubbing, or pedal edema. Neuro: Alert, Gross neurological examination did not reveal any focal deficits. Cranial nerves II to XII grossly intact. Bilateral upper and lower extremity muscle strength and sensation intact. Psych: well appearing, appropriate affect Assessment/Plan: Patient is a 79-year-old male with GERD, hyperlipidemia, hypertension, osteoarthritis, atrial fibrillation on apixaban 5 mg twice daily, mixed systolic and diastolic congestive heart failure, chronic kidney disease presented to the emergency department with dizziness. Patient will be admitted to internal medicine service. Active: #. Symptomatic bradycardia EKG showed atrial fibrillation with slow ventricular response with a ventricular rate of 55 bpm, QTc interval 397 ms Continue cardiac monitoring Consult cardiology #. Presyncope Obtain orthostatics daily Consult PT/OT Order echocardiogram Order carotid Doppler ultrasound Monitor morning CBC and BMP #. Hyponatremia Sodium 133 Morning BMP #. Normocytic anemia Hemoglobin 12.5, MCV 96.6 Morning CBC Chronic: #. Hyperlipidemia Restart atorvastatin 40 mg at bedtime #. Hypertension Restart lisinopril 10 mg daily #. Paroxysmal atrial fibrillation Restart metoprolol tartrate to 50 mg twice daily #. Gout Restart home allopurinol 200 mg at bedtime #. GERD Restart pantoprazole 40 mg daily F: No restrictions E: Replete as needed N: Heart healthy diet A: Wheelchair DVT prophylaxis: Apixaban 5 mg twice daily The patient is admitted with an anticipated less than 2 midnight stay for evaluation of symptomatic bradycardia and presyncope CODE STATUS: Full code Discussed with: Patient Anticipated discharge place: Home Past Medical History Past Medical History: Atrial Fibrillation, Cancer, Heart Failure, CVA/TIA, GERD/Reflux, Hyperlipidemia, Hypertension, Osteoarthritis (OA) Additional Past Medical History / Comment(s): diverticular disease, bleeding duodenal ulcer, gastritis, hemorrhoids, chronic low back pain, vertigo at times, skin cancer with removal, CHF, covid History of Any Multi-Drug Resistant Organisms: MRSA Date of last positivie culture/infection: 05/26/2024 MDRO Source:: buttocks Past Surgical History: Appendectomy, Hernia Repair, Joint Replacement, Orthopedic Surgery, Tonsillectomy Additional Past Surgical History / Comment(s): Total L/R knee arthroplasty, bilateral total hip arthroplasties, bilateral carpal tunnel releases, L foot bone removed/hardware since removed and had spacer placed, steroid back injections, colonoscopies, basal cell skin cancer removed. Past Anesthesia/Blood Transfusion Reactions: No Reported Reaction Additional Past Anesthesia/Blood Transfusion Reaction / Comment(s): . Past Psychological History: No Psychological Hx Reported Smoking Status: Never smoker Past Alcohol Use History: Occasional Past Drug Use History: None Reported - Past Family History Brother(s) Family Medical History: Cancer Mother Family Medical History: Cancer Additional Family Medical History / Comment(s): Mother lived to be 90yrs old. breast cancer Father Family Medical History: No Reported History Additional Family Medical History / Comment(s): Father lived to be in his early 80's. Medications and Allergies Home Medications Medication Instructions Recorded Confirmed Type Apixaban [Eliquis] 5 mg PO BID 11/19/23 09/20/24 History Loratadine [Claritin] 10 mg PO HS 11/19/23 09/20/24 History Magnesium Oxide [Magox 400] 800 mg PO BID 11/19/23 09/20/24 History Digoxin [Digitek] 125 mcg PO DAILY #30 tab 11/26/23 09/20/24 Rx Diltiazem Cd [Cardizem CD] 240 mg PO DAILY #30 cap 11/26/23 09/20/24 Rx Empagliflozin [Jardiance] 10 mg PO DAILY 03/26/24 09/20/24 History Furosemide [Lasix] 40 mg PO DAILY 03/26/24 09/20/24 History Metoprolol Tartrate [Lopressor] 50 mg PO BID 03/26/24 09/20/24 History Tamsulosin [Flomax] 0.4 mg PO DAILY 05/07/24 09/20/24 History lisinopriL [Zestril] 10 mg PO DAILY 05/07/24 09/20/24 History Atorvastatin [Lipitor] 40 mg PO HS tab 05/12/24 09/20/24 Rx HYDROcodone/APAP 10-325MG [[place] 1 tab PO BID PRN 09/20/24 09/20/24 History 10-325] HYDROcodone/APAP 10-325MG [[place] 1 tab PO DAILY 09/20/24 09/20/24 History 10-325] Pantoprazole Sodium [Protonix] 20 mg PO DAILY 09/20/24 09/20/24 History Sennosides [Senokot] 8.6 mg PO BID 09/20/24 09/20/24 History allopurinoL 200 mg PO HS 09/20/24 09/20/24 History Allergies Allergy/AdvReac Type Severity Reaction Status Date / Time No Known Allergies Allergy Verified 09/20/24 17:47 Physical Exam Vitals: Vital Signs Temp Pulse Pulse Resp BP BP Pulse Ox 09/21/24 07:58 66 16 142/73 09/21/24 03:22 98.4 F 78 17 126/84 97 09/20/24 23:25 98.2 F 68 17 115/69 95 09/20/24 19:50 98.5 F 97 16 129/76 99 09/20/24 18:05 68 18 113/68 97 09/20/24 17:10 69 18 112/82 98 09/20/24 17:07 65 18 112/72 97 09/20/24 17:05 60 18 113/71 98 09/20/24 15:09 98.1 F 58 L 20 118/63 97 Intake and Output 09/20/24 09/21/24 09/21/24 22:59 06:59 14:59 Intake Total 370 10 Balance 370 10 Intake: IV 10 10 Invasive Line 1 10 10 Oral 360 Other: Voiding Method Toilet Toilet # Voids 2 1 Weight 83.915 kg 83.8 kg Results CBC & Chem 7: 09/20/24 15:54 09/20/24 15:54 Labs: Abnormal Lab Results - Last 24 Hours (Table) 09/20/24 09/20/24 09/20/24 Range/Units 15:54 15:54 15:54 RBC 4.00 L (4.30-5.90) m/uL Hgb 12.8 L (13.0-17.5) gm/dL Hct 38.6 L (39.0-53.0) % PT 13.9 H (10.0-12.5) sec INR 1.3 H (<1.2) Sodium 133 L (137-145) mmol/L Glucose 121 H (74-99) mg/dL Total Protein 6.2 L (6.3-8.2) g/dL Urine Glucose (UA) (Negative) 09/20/24 Range/Units 17:26 RBC (4.30-5.90) m/uL Hgb (13.0-17.5) gm/dL Hct (39.0-53.0) % PT (10.0-12.5) sec INR (<1.2) Sodium (137-145) mmol/L Glucose (74-99) mg/dL Total Protein (6.3-8.2) g/dL Urine Glucose (UA) 4+ H (Negative) Thrombosis Risk Factor Assmnt - Choose All That Apply Any of the Below Risk Factors Present?: Yes Each Factor Represents 1 point: Obesity (BMI >25) Other Risk Factors: Yes Each Risk Factor Represents 3 Points: Age 75 years or older Other congenital or acquired thrombophilia - If yes, enter type in comment: No Thrombosis Risk Factor Assessment Total Risk Factor Score: 4 Thrombosis Risk Factor Assessment Level: Moderate Risk
--- NOTE | 2024-09-21 17:45 | CA ---
Transthoracic Echo Report Name: Jeremy Francois Age: 79 Gender: M : 1945 Exam Date: 09/21/2024 14:11 Exam Location: [facility] Ht (in): 71 Wt (lb): 184 Ordering Physician: Lucas Preciado DO Attending/Referring Phys: Investment Counselor Nereyda Sprague RDCS Procedure CPT: Indications: symptomatic bradycardia, presyncope Cardiac Hx: CVA, A FIB Technical Quality: Fair Contrast 1: Total Dose (mL): Contrast 2: Total Dose (mL): MEASUREMENTS (Male / Female) Normal Values 2D ECHO LV Diastolic Diameter PLAX 5.9 cm 4.2 - 5.9 / 3.9 - 5.3 cm LV Systolic Diameter PLAX 4.7 cm IVS Diastolic Thickness 1.3 cm 0.6 - 1.0 / 0.6 - 0.9 cm LVPW Diastolic Thickness 1.2 cm 0.6 - 1.0 / 0.6 - 0.9 cm LV Relative Wall Thickness 0.4 RV Internal Dim ED PLAX 3.9 cm LVOT Diameter 2.4 cm LA Systolic Diameter LX 4.5 cm 3.0 - 4.0 / 2.7 - 3.8 cm LV Diastolic Volume MOD 4C 76.1 cm??? LV Systolic Volume MOD 4C 44.7 cm??? LV Ejection Fraction MOD 4C 41.2 % LV Cardiac Index MOD 4C 1222.5 cm???/min???m??? LV Diastolic Length 4C 7.6 cm LV Systolic Length 4C 6.7 cm LA Volume 107.9 cm??? 18 - 58 / 22 - 52 cm??? LA Volume Index 52.5 cm???/m??? 16 - 28 cm???/m??? M-MODE Aortic Root Diameter MM 4.1 cm DOPPLER AV Peak Velocity 258.7 cm/s AV Peak Gradient 26.8 mmHg AV Mean Velocity 166.9 cm/s AV Mean Gradient 13.9 mmHg AV Velocity Time Integral 42.3 cm LVOT Peak Velocity 105.1 cm/s LVOT Peak Gradient 4.4 mmHg LVOT Velocity Time Integral 19.7 cm LVOT Stroke Volume 86.3 cm??? LVOT Stroke Volume Index 42.4 ml/m??? LVOT Cardiac Index 3360.9 cm???/min???m??? AV Area Cont Eq vti 2.0 cm??? AV Area Cont Eq pk 1.8 cm??? MV Area PHT 3.7 cm??? MV Deceleration Time 226.3 ms TR Peak Velocity 251.2 cm/s TR Peak Gradient 25.2 mmHg Right Ventricular Systolic Press 29.4 mmHg FINDINGS Left Ventricle Left ventricular ejection fraction is estimated at 50-55 %. Mildly increased septal wall thickness. Mild to moderate concentric left ventricular hypertrophy. Right Ventricle Moderate right ventricular dilatation. Right ventricular systolic pressure within normal limits. Right Atrium Moderate right atrial dilatation. No right atrial thrombus or mass seen. Left Atrium Mildly increased left atrial diameter. Severely increased left atrial volume. Moderately increased left atrial area. Mitral Valve Mitral valve thickened. Mild mitral annular calcification. Mild mitral regurgitation. Aortic Valve Aortic valve sclerosis. Mild aortic stenosis with a peak gradient of 27 mmHg and a mean gradient of 14 mmHg. Tricuspid Valve Structurally normal tricuspid valve. Mild tricuspid regurgitation. Pulmonic Valve Structurally normal pulmonic valve. Trace pulmonic regurgitation. Pericardium No pericardial effusion. Aorta Moderate aortic dilatation at the level of the sinuses of valsalva 41 mm CONCLUSIONS Normal LV size and systolic function. Mild concentric LVH. Enlarged right ventricle prominent and enlarged atria. Mitral annular calcification. Aortic valve stenosis mild to moderate. No significant pulmonary hypertension mild mitral and tricuspid regurgitation. No pericardial effusion Previewed by: Dr. Milton Mendiola MD (Electronically Signed) Final Date: 21 September 2024 17:44
[2024-09-22] MEDS: PANTOPRAZOLE 40 MG TABLET PO SCH (06:26)
[2024-09-22] MEDS: METOPROLOL TARTRATE 50 MG TAB PO SCH ×2 (07:52→15:48)
[2024-09-22 08:43] LABS: Basophils # (A) 0.1 k/uL (0-0.2); Basophils % (A) 1 %; Eosinophils # (A) 0.1 k/uL (0-0.7); Eosinophils % (A) 1 %; HCT 45.8 % (39.0-53.0); HGB 14.6 gm/dL (13.0-17.5); Lymphocytes # (A) 2.2 k/uL (1.0-4.8); Lymphocytes % (A) 29 %; MCH 31.6 pg (25.0-35.0); MCHC 31.9 g/dL (31.0-37.0); MCV 98.9 fL (80.0-100.0); Mean Platelet Volume 7.4; Monocytes # (A) 0.6 k/uL (0-1.0); Monocytes % (A) 7 %; Neutrophils # (A) 4.6 k/uL (1.3-7.7); Neutrophils % (A) 60 %; Platelet Count 274 k/uL (150-450); RBC 4.63 m/uL (4.30-5.90); RDW 14.9 % (11.5-15.5); WBC 7.6 k/uL (3.8-10.6)
[2024-09-22 08:58] LABS: African American GFR (CKD) >90 (>60 ml/min/1.73 sqM); Anion Gap 8 mmol/L; Blood Urea Nitrogen 16 mg/dL (9-20); Carbon Dioxide 30 mmol/L (22-30); Chloride 99 mmol/L (98-107); Glucose 93 mg/dL (74-99); Non-African American GFR(CKD) 86 (>60 ml/min/1.73 sqM); Potassium 4.2 mmol/L (3.5-5.1); Sodium 137 mmol/L (137-145)
--- NOTE | 2024-09-22 12:53 | P.PN ---
Subjective Progress Note Date: 09/22/24 Reason for Consult (text): Bradycardia History of present illness: This is an 79-year-old male patient of Dr. Jessika Ashford with past medical history of permanent atrial fibrillation, hypertension, dyslipidemia. We have been asked to evaluate the patient for symptomatic bradycardia. Patient presented to the hospital due to dizziness. He states he was trying to get up off the couch and became dizzy and ended up falling backwards back onto the couch. He denies any loss of consciousness. He denies any chest pain. No shortness of breath. Blood pressure 142/73, heart rate 66, pulse ox 97% on room air. -EKG: Atrial fibrillation at 55 bpm. -Chest x-ray: Questionable retrocardiac opacity could reflect atelectasis and/or pneumonia. -Laboratory studies: WBC 7, hemoglobin 12.8, INR 1.3. Sodium 133, potassium 4, BUN 19 creatinine 0.84. Troponin negative x 2. TSH 0.494. -Home cardiac medications: Eliquis 5 mg twice daily, Lipitor 40 mg at bedtime, digoxin 125 mcg daily, Cardizem CD 240 mg daily, Jardiance 10 mg daily, Lasix 40 mg daily, lisinopril 10 mg daily, metoprolol tartrate 50 mg twice daily. -Echocardiogram performed on 03/27/2024 reveals EF of 55 to 60%, A-fib with RVR, mild aortic stenosis with peak gradient 30 mmHg. -Event monitor performed 03/01/2023 - 03/02/2023: Revealed atrial fibrillation or flutter with average heart rate of 68 bpm and as low as 37 bpm, maximum heart rate 125. Atrial fibrillation or flutter burden was 100%. PVC burden was 0.03%. Pause 8 events with longest pause 2067 MS. 09/22 Patient seen and examined on the cardiac stepdown unit. Heart rate is running 80s and 90s and even higher with activity. He is scheduled to start beta- alexy today which we will increase frequency to 3 times daily. Patient denies lightheadedness or dizziness, he is ambulating in the hallway with his . All questions have been answered. Blood pressure 132/90, pulse ox 97% on room air. Repeat blood work reveals CBC normal as well as BMP is normal. Physical examination: Gen: This is an 79-year-old male in no acute distress VS: reviewed HEENT: Head is atraumatic, normocephalic. Pupils equal, round. Sclerae is anic teric. NECK: Supple. No JVD. LUNGS: Clear to auscultation. No wheezes or rhonchi. No intercostal retractions. HEART: Irregular rate and rhythm. Soft systolic ejection murmur. ABDOMEN: Soft No tenderness. EXTREMITIES: No pedal edema. No calf tenderness. NEUROLOGICAL: Patient is awake, alert and oriented x3. Assessment: Dizziness Bradycardia Permanent atrial fibrillation Hypertension Dyslipidemia Plan: Continue patient's home cardiac medications with the following changes: Discontinue digoxin Discontinue Cardizem Continue metoprolol 50 mg daily starting this morning Continue telemetry monitoring Further recommendations to follow based upon clinical course Nurse practitioner note has been reviewed, I agree with documented findings and plan of care. Patient was seen and examined. Objective - Vital Signs Vital signs: Vital Signs Temp 98.6 F 09/22/24 07:54 Pulse 86 09/22/24 07:54 Resp 16 09/22/24 07:54 BP 132/90 09/22/24 07:54 Pulse Ox 97 09/22/24 07:54 FiO2 Intake & Output 09/21/24 09/22/24 09/22/24 18:59 06:59 18:59 Output Total 1 Balance -1 Weight 80.1 kg Output: Stool 1 Other: Voiding Method Toilet # Voids 4 1 - Labs CBC & Chem 7: 09/22/24 07:27 09/22/24 07:27
[2024-09-23 10:14] VITALS: RESP 16; TEMP 96.2
--- NOTE | 2024-09-23 11:22 | P.PN ---
Subjective Patient is a 79-year-old male with GERD, hyperlipidemia, hypertension, osteoarthritis, atrial fibrillation on apixaban 5 mg twice daily, mixed systolic and diastolic congestive heart failure, chronic kidney disease presented to the emergency department with dizziness. Patient was seen at bedside today. He reports that yesterday he felt lightheaded and dizzy when he was trying to stand up from his couch that he fell backward into the couch. Few minutes later, he was having another episode where he felt lightheaded and dizzy. He has not fal safia before in the past but has never felt anything like this before. Patient denied any chest pain, shortness of breath, nausea, vomiting, diaphoresis prior to the fall. He denied passing out or losing consciousness during the episode. The dizziness lasted for few minutes and then went away. He does not report a room spinning sensation but more of a lightheaded sensation. Patient denies other acute complaints at this time. He denies diarrhea, constipation, hematochezia, melena, tingling or numbness sensation upper or lower extremity. ED documentation reviewed. In the ED patient was treated with 1.5 L bolus of normal saline 09/22 Patient overall doing well Heart rate still uncontrolled, cardiology team increase his metoprolol to 50 mg 3 times daily and they want to monitor him for another 24 hours DC digoxin and Cardizem on admission Remains on Eliquis, patient has it at home Patient with evidence of right internal carotid artery stenosis, he is asymptomatic is informed with recommendation to follow-up outpatient with vascular surgery and he agrees, contact information is placed in his discharge instructions Objective - Vital Signs Vital signs: Vital Signs Temp 98.4 F 09/22/24 12:00 Pulse 88 09/22/24 12:00 Resp 17 09/22/24 12:00 BP 112/81 09/22/24 12:00 Pulse Ox 96 09/22/24 12:00 FiO2 Intake & Output 09/21/24 09/22/24 09/22/24 18:59 06:59 18:59 Output Total 1 Balance -1 Weight 80.1 kg Output: Stool 1 Other: Voiding Method Toilet # Voids 4 1 - Exam GENERAL: The patient is alert and oriented x3, not in any acute distress. Well developed, well nourished. HEENT: Pupils are round and equally reacting to light. EOMI. No scleral icterus. No conjunctival pallor. Normocephalic, atraumatic. No pharyngeal erythema. No thyromegaly. CARDIOVASCULAR: S1 and S2 present. No murmurs, rubs, or gallops. PULMONARY: Chest is clear to auscultation, no wheezing , no crackles. ABDOMEN: Soft, nontender, nondistended, normoactive bowel sounds. No palpable organomegaly. MUSCULOSKELETAL: No joint swelling or deformity. EXTREMITIES: No cyanosis, clubbing, or pedal edema. NEUROLOGICAL: Gross neurological examination did not reveal any focal deficits. SKIN: No rashes. no petechiae. - Labs CBC & Chem 7: 09/22/24 07:27 09/22/24 07:27 Assessment and Plan Assessment: Assessment/Plan: Patient is a 79-year-old male with GERD, hyperlipidemia, hypertension, osteoarthritis, atrial fibrillation on apixaban 5 mg twice daily, mixed systolic and diastolic congestive heart failure, chronic kidney disease presented to the emergency department with dizziness. Patient will be admitted to internal medicine service. Active: #. Symptomatic bradycardia, improved after discontinuing digoxin and Cardizem on admission, currently heart rate is fast and uncontrolled EKG showed atrial fibrillation with slow ventricular response with a ventricular rate of 55 bpm, QTc interval 397 ms Continue cardiac monitoring Consult cardiology increase metoprolol to 50 mg 3 times daily #. Presyncope Obtain orthostatics daily Consult PT/OT Order echocardiogram carotid Doppler ultrasound is reviewed has right side stenosis 50 to 69% and left side stenosis less than 50%, follow-up as outpatient with vascular surgery Monitor morning CBC and BMP #. Hyponatremia Sodium 133 Morning BMP #. Normocytic anemia Hemoglobin 12.5, MCV 96.6 Morning CBC Chronic: #. Hyperlipidemia Restart atorvastatin 40 mg at bedtime #. Hypertension Restart lisinopril 10 mg daily #. Paroxysmal atrial fibrillation Restart metoprolol tartrate to 50 mg twice daily #. Gout Restart home allopurinol 200 mg at bedtime #. GERD Restart pantoprazole 40 mg daily F: No restrictions E: Replete as needed N: Heart healthy diet A: Wheelchair DVT prophylaxis: Apixaban 5 mg twice daily The patient is admitted with an anticipated less than 2 midnight stay for evaluation of symptomatic bradycardia and presyncope CODE STATUS: Full code Discussed with: Patient Anticipated discharge place: Home
--- NOTE | 2024-09-23 13:22 | P.PN ---
Subjective Progress Note Date: 09/23/24 Reason for Consult (text): Bradycardia History of present illness: This is an 79-year-old male patient of Dr. Jessika Ashford with past medical history of permanent atrial fibrillation, hypertension, dyslipidemia. We have been asked to evaluate the patient for symptomatic bradycardia. Patient presented to the hospital due to dizziness. He states he was trying to get up off the couch and became dizzy and ended up falling backwards back onto the couch. He denies any loss of consciousness. He denies any chest pain. No shortness of breath. Blood pressure 142/73, heart rate 66, pulse ox 97% on room air. -EKG: Atrial fibrillation at 55 bpm. -Chest x-ray: Questionable retrocardiac opacity could reflect atelectasis and/or pneumonia. -Laboratory studies: WBC 7, hemoglobin 12.8, INR 1.3. Sodium 133, potassium 4, BUN 19 creatinine 0.84. Troponin negative x 2. TSH 0.494. -Home cardiac medications: Eliquis 5 mg twice daily, Lipitor 40 mg at bedtime, digoxin 125 mcg daily, Cardizem CD 240 mg daily, Jardiance 10 mg daily, Lasix 40 mg daily, lisinopril 10 mg daily, metoprolol tartrate 50 mg twice daily. -Echocardiogram performed on 03/27/2024 reveals EF of 55 to 60%, A-fib with RVR, mild aortic stenosis with peak gradient 30 mmHg. -Event monitor performed 03/01/2023 - 03/02/2023: Revealed atrial fibrillation or flutter with average heart rate of 68 bpm and as low as 37 bpm, maximum heart rate 125. Atrial fibrillation or flutter burden was 100%. PVC burden was 0.03%. Pause 8 events with longest pause 2067 MS. 09/22 Patient seen and examined on the cardiac stepdown unit. Heart rate is running 80s and 90s and even higher with activity. He is scheduled to start beta- alexy today which we will increase frequency to 3 times daily. Patient denies lightheadedness or dizziness, he is ambulating in the hallway with his . All questions have been answered. Blood pressure 132/90, pulse ox 97% on room air. Repeat blood work reveals CBC normal as well as BMP is normal. 09/23 Patient seen and examined. Blood pressure 131/88, heart rate in the 89 range. Patient remains off digoxin and Cardizem and continued on metoprolol tartrate 50 mg 3 times daily. Telemetry is atrial fibrillation. Physical examination: Gen: This is an 79-year-old male in no acute distress VS: reviewed HEENT: Head is atraumatic, normocephalic. Pupils equal, round. Sclerae is anicteric. NECK: Supple. No JVD. LUNGS: Clear to auscultation. No wheezes or rhonchi. No intercostal retractions. HEART: Irregular rate and rhythm. Soft systolic ejection murmur. ABDOMEN: Soft No tenderness. EXTREMITIES: No pedal edema. No calf tenderness. NEUROLOGICAL: Patient is awake, alert and oriented x3. Assessment: Dizziness Bradycardia Permanent atrial fibrillation Hypertension Dyslipidemia Plan: Continue patient's home cardiac medications with the following changes: Discontinue digoxin Discontinue Cardizem Continue metoprolol increased to 100 mg twice daily Patient is cleared for discharge from cardiology and may follow-up in the office with Dr. Jessika Ashford in 2 weeks. Nurse practitioner note has been reviewed, I agree with documented findings and plan of care. Patient was seen and examined. Objective - Vital Signs Vital signs: Vital Signs Temp 97.8 F 09/23/24 03:27 Pulse 109 H 09/23/24 03:27 Resp 17 09/23/24 03:27 BP 133/90 09/23/24 03:27 Pulse Ox 97 09/23/24 03:27 FiO2 Intake & Output 09/22/24 09/23/24 09/23/24 18:59 06:59 18:59 Intake Total 300 10 Balance 300 10 Weight 80.9 kg Intake: IV 10 Invasive Line 2 10 Oral 300 Other: Voiding Method Toilet # Voids 1 - Labs CBC & Chem 7: 09/22/24 07:27 09/22/24 07:27
[2024-09-23 14:31] VITALS: BP 98/53; PULSE 82
[2024-09-23] MEDS ORDERED: METOPROLOL TARTRATE 50 MG TAB PO SCH (21:00)
--- NOTE | 2024-09-24 22:34 | P.DS ---
Providers Date of admission: 09/21/24 12:41 Attending physician: Ehsan Velásquez MD Consults: 09/20/24 17:36 Consult Physician Urgent Consulting Provider: Yves Benito Consult Reason/Comments: Symptomatic bradycardia Do you want consulting provider notified?: Yes Primary care physician: Chris Rice [facility] Course: Final Diagnosis Symptomatic bradycardia, improved after discontinuing digoxin and Cardizem on a dmission, started on metoprolol as heart rate became tachycardic Presyncope carotid Doppler ultrasound is reviewed has right side stenosis 50 to 69% and left side stenosis less than 50%, follow-up as outpatient with vascular surgery Hypovolemic hyponatremia Normocytic anemia Hyperlipidemia Hypertension Paroxysmal atrial fibrillation Gout GERD Discharge Disposition Patient is stable for discharge home. Patient has been cleared by cardiology to follow up in the office. continue on oral metoprolol and discontinue cardizem and digoxin. Follow up with PCP Dr. Chris Rice. Hospital Course Patient is a 79-year-old male with GERD, hyperlipidemia, hypertension, osteoarthritis, atrial fibrillation on apixaban 5 mg twice daily, mixed systolic and diastolic congestive heart failure, chronic kidney disease presented to the emergency department with dizziness. He reports that yesterday he felt lightheaded and dizzy when he was trying to stand up from his couch that he fell backward into the couch. Few minutes later, he was having another episode where he felt lightheaded and dizzy. He has not fallen before in the past but has never felt anything like this before. Patient denied any chest pain, shortness of breath, nausea, vomiting, diaphoresis prior to the fall. He denied passing out or losing consciousness during the episode. The dizziness lasted for few minutes and then went away. He does not report a room spinning sensation but more of a lightheaded sensation. Patient denies other acute complaints at this time. He denies diarrhea, constipation, hematochezia, melena, tingling or numbness sensation upper or lower extremity. He was given a 1.5 L bolus in the EC. He was admitted to the hospital with cardiology consultation. Patient was tachycardic; cardiology team increase his metoprolol to 50 mg 3 times daily. DC digoxin and Cardizem on admission. Had carotid doppler done reveals 50-69% stenosis of the carotid bifurcations on the right and less than 50% stenosis of the carotid bifurcation on the left. Echocardiogram reveals an EF 50-55% with mild concentric LVH enlarged right ventricle prominent and enlarged atria. mild to moderate aortic stenosis. Mild TR. Sodium level 133 on admission up to 137 with IV hydration. Renal function remains WNL. TSH 0.494. Patient has been up ambulating he is not having any chest pain or shortness of breath. He has no further reports of dizziness or lightheadedness. He will be discharged home. Please see medication reconciliation for a list of current medications. Thank you for allowing us to participate in the care of this patient. The impression and plan of care has been dictated by Vivienne Dubois, Nurse Practitioner as directed. Dr. Meghana MD I have performed a history and physical examination and medical decision making of this patient, discussed the same with the dictator, and agree with the dictators assessment and plan as written, documented as a scribe. Based on total visit time, I have performed more than 50% of this visit. Patient Condition at Discharge: Stable Plan - Discharge Summary Discharge Rx Participant: Yes New Discharge Prescriptions: New Metoprolol Tartrate [Lopressor] 100 mg PO BID #180 tablet Continue Apixaban [Eliquis] 5 mg PO BID Loratadine [Claritin] 10 mg PO HS lisinopriL [Zestril] 10 mg PO DAILY Atorvastatin [Lipitor] 40 mg PO HS tab Sennosides [Senokot] 8.6 mg PO BID HYDROcodone/APAP 10-325MG [[place]incoln 10-325] 1 tab PO DAILY Magnesium Oxide [Magox 400] 800 mg PO BID Empagliflozin [Jardiance] 10 mg PO DAILY Furosemide [Lasix] 40 mg PO DAILY Tamsulosin [Flomax] 0.4 mg PO DAILY allopurinoL 200 mg PO HS Pantoprazole Sodium [Protonix] 20 mg PO DAILY HYDROcodone/APAP 10-325MG [Lincoln 10-325] 1 tab PO BID PRN PRN Reason: Pain Discontinued Digoxin [Digitek] 125 mcg PO DAILY #30 tab Metoprolol Tartrate [Lopressor] 50 mg PO BID Diltiazem Cd [Cardizem CD] 240 mg PO DAILY #30 cap Discharge Medication List Apixaban [Eliquis] 5 mg PO BID 11/19/23 [History] Loratadine [Claritin] 10 mg PO HS 11/19/23 [History] Magnesium Oxide [Magox 400] 800 mg PO BID 11/19/23 [History] Empagliflozin [Jardiance] 10 mg PO DAILY 03/26/24 [History] Furosemide [Lasix] 40 mg PO DAILY 03/26/24 [History] Tamsulosin [Flomax] 0.4 mg PO DAILY 05/07/24 [History] lisinopriL [Zestril] 10 mg PO DAILY 05/07/24 [History] Atorvastatin [Lipitor] 40 mg PO HS tab 05/12/24 [Rx] HYDROcodone/APAP 10-325MG [Lincoln 10-325] 1 tab PO BID PRN 09/20/24 [History] HYDROcodone/APAP 10-325MG [Lincoln 10-325] 1 tab PO DAILY 09/20/24 [History] Pantoprazole Sodium [Protonix] 20 mg PO DAILY 09/20/24 [History] Sennosides [Senokot] 8.6 mg PO BID 09/20/24 [History] allopurinoL 200 mg PO HS 09/20/24 [History] Metoprolol Tartrate [Lopressor] 100 mg PO BID #180 tablet 09/23/24 [Rx] Follow up Appointment(s)/Referral(s): Sergey Rothman DO [Doctor of Osteopathic Medicine] - 10/08/24 9:00 am (Carotid artery stenosis) Chris Rice MD [Primary Care Provider] - 09/30/24 9:15 am (with Salty Valdovinos NP ) José Manuel Ashford MD [STAFF PHYSICIAN] - 10/02/24 3:45 pm Patient Instructions/Handouts: A-fib (Atrial Fibrillation) (DC), Bradycardia (DC) Discharge/Stand Alone Forms: Who Do I Call? Discharge Disposition: HOME SELF-CARE
== END 2024-09-23 15:12 | disposition home or self-care (01) ==
LOC: EC 15:07 → 3SCARD 17:28 → INTOOBSV 09-21 12:41 → OBSVTOIN 09-21 12:41 → UNDODISIN 09-23 15:12
PROVIDERS: ADMIT Internal Medicine; ATTEND Internal Medicine
DX: R00.1 Bradycardia, unspecified (principal); E87.1 Hypo-osmolality and hyponatremia; E86.1 Hypovolemia; I48.21 Permanent atrial fibrillation; I13.0 Hypertensive heart and chronic kidney disease with heart failure and stage 1 through stage 4 chronic kidney disease, or unspecified chronic kidney disease; I50.40 Unspecified combined systolic (congestive) and diastolic (congestive) heart failure; N18.9 Chronic kidney disease, unspecified; I65.21 Occlusion and stenosis of right carotid artery; I35.0 Nonrheumatic aortic (valve) stenosis; E78.5 Hyperlipidemia, unspecified; K21.9 Gastro-esophageal reflux disease without esophagitis; D64.9 Anemia, unspecified; M10.9 Gout, unspecified; M19.90 Unspecified osteoarthritis, unspecified site; E66.9 Obesity, unspecified; Z68.24 Body mass index [BMI] 24.0-24.9, adult; Z79.01 Long term (current) use of anticoagulants; Z79.84 Long term (current) use of oral hypoglycemic drugs; Z79.891 Long term (current) use of opiate analgesic; Z79.899 Other long term (current) drug therapy; Z91.81 History of falling
CPT/HCPCS: 96374; 99285; 36415; 93005; 93306; 97116; 97162; 97530; 97165; 80053; 80048; 84443; 80162; 83735; 84484; 85025 ×2; 85610; 81003; 71046; 93880; G0378 ×4; J2470; 96360